=== PATIENT | female | born 1970 | race Caucasian/White ===

== ENCOUNTER 2024-12-22 10:44 | Outpatient (OUT) | payer MEDICARE, SELFPAY ==
--- NOTE | 2024-12-22 10:47 | US_ITS ---
[address] [address] Patient Name: MONIKA RAMON MRN: [id number] date: 1970 Sex: F Assigned Patient Location: US Current Patient Location: US Accession/Order Number: [id number] Exam Date: 12/22/2024 10:48 Report Date: 12/22/2024 12:06 At the request of: MAYNOR CRAVEN Procedure: US pelvis w/ transvaginal EXAMINATION: US pelvis w/ transvaginal HISTORY: Post Menopausal Bleeding COMPARISON: CT abdomen pelvis 10/13/2017 TECHNIQUE: Transabdominal and/or transvaginal sonographic examination was performed as indicated by examination type. FINDINGS: UTERUS: Heterogeneous hypoechoic masslike area within right uterine body, 4.1 x 2.6 x 3.8 cm with large calcification/collection of calcifications, approximately 2.0 cm. Uterus size: 5.8 x 4.8 x 5.8 cm ENDOMETRIUM: Normal homogeneous appearance. Endometrial thickness: 9 mm RIGHT OVARY: Not seen. LEFT OVARY: Not seen. CUL-DE-SAC: Unremarkable. No significant free fluid. BLADDER: Unremarkable. OTHER: None. US/US pelvis w/ transvaginal IMPRESSION: 1. Large uterine mass with coarse calcification; nonspecific but most likely representing a large leiomyoma. Large coarse calcifications were present within the uterus on prior CT study. 2. Neither ovary could be identified. Electronically authenticated by: YAMILETH LONGO Date: 12/22/2024 12:06
== END 2024-12-22 10:45 | disposition home or self-care (01) ==
LOC: US 10:44
PROVIDERS: PCP Nurse Practitioner; Visit Provider Nurse Practitioner
DX: N95.0 Postmenopausal bleeding (principal); R19.00 Intra-abdominal and pelvic swelling, mass and lump, unspecified site
CPT/HCPCS: 76830; 76856

== ENCOUNTER 2024-12-23 13:09 | Outpatient (OUT) | payer MEDICARE, SELFPAY ==
[2024-12-23 14:08] LABS: Lactate Dehydrogenase 183 U/L (81-234)
[2024-12-24 04:07] LABS: HCG Tumor Marker 2 mIU/mL (.)
[2024-12-24 08:13] LABS: AFP, Serum, Tumor Marker 2.5 ng/mL (0.0-9.2); CEA <0.6 ng/mL (0.0-4.7); Cancer Antigen (CA) 125 14.6 U/mL (0.0-38.1)
== END 2024-12-23 13:10 | disposition home or self-care (01) ==
LOC: LAB 13:12
PROVIDERS: PCP Nurse Practitioner; Visit Provider Obstetrics & Gynecology
DX: N83.299 Other ovarian cyst, unspecified side (principal)
CPT/HCPCS: 36415; 82105; 82378; 83615; 84702; 86304

== ENCOUNTER 2024-12-28 09:04 | Outpatient (OUT) | payer MEDICARE, SELFPAY ==
--- NOTE | 2024-12-28 09:07 | ECG_ITS ---
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
--- OUTSIDE RECORDS SUMMARY | 2024-12-28 09:24 | XMS_ITS | CCD ---
Author Organization [facility] Care Team Providers Care 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 Name Role Phone MISC, DOCTOR Primary Care Unavailable NICOLA JOHNSON Admitting Unavailable NICOLA JOHNSON Attending Unavailable NICOLA JOHNSON Consulting Unavailable YAMILETH LONGO Consulting Unavailable TEREZA RAMÍREZ Consulting Unavailable Kelley Gómez Primary Care Physician Erica Mercedes Primary Care Provider Erica Mercedes Primary Care Provider Erica Mercedes Primary Care Provider Ara Vanegas Primary Care Physician Gonsalo CHARLES, Mitzy Unavailable Erica Mercedes Primary Care Provider Jackie Pop V Unavailable Unavailable Guilherme, Ara Cote Attending Unavailable Guilherme, Ara oCte Attending Unavailable Guilherme, Ara Cote Attending Unavailable Orzech, Elo Michel Attending Unavailable Orzech, Elo Michel Attending Unavailable Guilherme, Ara Ctoe Attending Unavailable Guilherme, Ara Cote Admitting Unavailable Guilherme, Ara L Attending Unavailable Guilherme, Ara L Attending Unavailable Guilherme, Ara L Attending Unavailable Guilherme, Ara L Attending Unavailable Guilherme, Ara L Attending Unavailable Guilherme, Ara L Attending Unavailable Guilherme, Ara L Attending Unavailable Guilherme, Ara L Attending Unavailable Guilherme, Ara L Attending Unavailable Guilherme, Ara L Attending Unavailable Guilherme, Ara L Attending Unavailable Guilherme, Ara L Attending Unavailable Guilherme, Ara L Attending Unavailable Guilherme, Ara L Attending Unavailable Guilherme, Ara L Attending Unavailable Guilherme, Ara L Attending Unavailable Guilherme, Ara Cote Attending Unavailable VALENT, MIO N Referring Unavailable ERICA MERCEDES Primary Care Unava ilable ERICA MERCEDES Primary Care Unava ilable VALENT, MIO N Referring Unavailable ERICA MERCEDES Primary Care Unava ilable SUMIT BUSTAMANTEITH Attending Unavailable SUMIT BUSTAMANTEITH Referring Unavailable ERICA MERCEDES Primary Care Unava ilable BUSTAMANTEPATRICK Attending Unavailable ERICA MERCEDES Primary Care Unava ilable BUSTAMANTE, PATRICK Referring Unavailable BUSTAMANTE, PATRICK Attending Unavailable BUSTAMANTE, PATRICK Referring Unavailable BUSTAMANTESUMITPATRICK Attending Unavailable ERICA MERCEDES Primary Care Unava ilable BUSTAMANTE, PATRICK Attending Unavailable BUSTAMANTE, PATRICK Referring Unavailable ERICA MERCEDES Primary Care Unava ilable VALENT, MIO N Attending Unavailable VALENT, MIO N Referring Unavailable ERICA MERCEDES Primary Care Unava ilable Unavailable Primary Care Provider UnavailKELLEY Kaur Attending Unavailable Allergies Allergy Classification Reported Allergen(s) Allergy Type Date of Onset Reaction(s) Facility Opioid Agonists (1 source) Morphine Drug Allergy 6 Hives [facility] (4 sources) Morphine; Translations: [morphine] Drug Allergy 4 [facility] (20 sources) Morphine; Translations: [morphine] Drug Allergy 6 Eruption of skin (disorder), Hives, Rash [facility] (5 sources) Bee/Wasp/Ant venom; Translations: [Bee Stings] Propensity to adverse reactions to substance Swelling (finding) [facility] [place] (3 sources) Honey bee venom Propensity to adverse reactions 5 Swelling [facility] Medications Current Medications Medication Drug Class(es) Dates Sig (Normalized) Sig (Original) 0.5 ML tirzepatide 10 MG/ML Auto-Injector [Mounjaro] (3 sources) Start: 02-25-2024 inject 5 mg by subcutaneous injection every week Mounjaro 5 mg/0.5 mL subcutaneous solution 5 mg, SubCutaneous, qWeek, # 4 EA, Refills(s) 2, Pharmacy: [facility], 178, cm, 02/25/24 11:11:00 EDT, Height/Length Dosing, 109.8, kg, 02/25/24 11:11:00 EDT, Weight Dosing Start Date: 02/25/24 Status: Ordered 0.5 ML tirzepatide 30 MG/ML Auto-Injector [Mounjaro] (4 sources) Start: 06-24-2023 inject 15 mg by subcutaneous injection every week Mounjaro 15 mg/0.5 mL subcutaneous solution 15 mg, SubCutaneous, qWeek, Refills(s) 0 Start Date: 06/24/23 Status: Ordered acetaminophen 650 mg oral tablet (3 sources) Start: 01-14-2024 Tylenol 650 mg, Oral, PRN as needed for pain, Refills(s) 0 Start Date: 01/14/24 Status: Ordered baclofen 20 mg oral tablet (20 sources) gamma-Aminobutyr ic Acid-ergic Agonist Start: 12-15-2024 End: 06-13-2025 take 1 tablet by mouth three times daily baclofen 20 mg tablet Take 1 tablet by mouth three times a day. 90 tablet 5 12/15/2024 06/13/2025 Active Start: 01-21-2024 End: 12-15-2024 take 1 tablet by mouth three times daily baclofen 10 mg tablet Take 1 tablet by mouth three times a day. 90 tablet 5 01/21/2024 12/15/2024 Discontinued (Changing Therapy/Dosage Form) Start: 10-27-2023 End: 10-26-2024 take 1 tablet by mouth twice daily baclofen 10 mg tablet Take 1 tablet by mouth two times a day. 180 tablet 3 10/27/2023 01/21/2024 Discontinued Start: 10-26-2020 End: 12-20-2022 take 1 tablet by mouth twice daily baclofen (LIORESAL) 10 mg tablet Take 1 tablet by mouth twice daily. 180 tablet 3 10/26/2020 12/20/2022 Discontinued Start: 09-13-2020 baclofen 10 mg , Oral, BID, Oral, 0 Refill(s), Refills(s) 0 Start Date: 09/13/20 Status: Ordered Start: 09-13-2020 End: 10-27-2023 baclofen 5 mg tablet Take 1 tablet by mouth as needed. 0 09/03/2023 10/27/2023 Discontinued (Other) Comment on above: Take 1 tablet by rahel th twice daily. Take 1 tablet by rahel th as needed. Take 5 mg by mouth. Take 1 tablet by rahel th two times a day. Take 1 tablet by rahel th three times a day. benzonatate 200 mg oral capsule (1 source) Non-narcotic Antitussive Start: 4 End: 4 take 1 capsule by mouth three times daily benzonatate 200 mg oral capsule 200 mg = 1 cap(s), Oral, TID, X 7 day(s), # 21 cap(s), Refills(s) 0, Pharmacy: [facility]/pharmacy #[id number], 178, cm, 03/17/24 12:53:00 EDT, Height/Length Dosing, 106.8, kg, 03/17/24 12:53:00 EDT, Weight Dosing Start Date: 03/17/24 Stop Date: 03/24/24 Status: Ordered Capmist DM 15 mg-400 mg-60 mg oral tablet (3 sources) Start: 4 Capmist DM 15 mg-400 mg-60 mg oral tablet 1 tab(s), Oral, q4hr, 30 tab(s), Refill(s) 0, not to exceed 4 doses/day, [facility]/pharmacy #[id number], 178, cm, 03/17/24 12:53:00 EDT, Height/Length Dosing, 106.8, kg, 03/17/24 12:53:00 EDT, Weight Dosing Start Date: 03/17/24 Status: Ordered cephalexin 500 mg oral capsule (8 sources) Cephalosporin Antibacterial Start: 2 take 1 capsule by mouth twice daily Keflex 500 mg Cap 500 mg = 1 cap(s), Oral, BID, Start the day prior to procedure, # 14 cap(s), Refills(s) 0, Pharmacy: [facility]/pharmacy #[id number], 177, cm, 04/17/22 14:39:00 EDT, Height/Length Dosing, 77, kg, 04/17/22 14:39:00 EDT, Weight Dosing Start Date: 09/19/22 Status: Ordered Start: 04-17-2022 End: 04-27-2022 take 1 capsule by mouth every twelve hours Keflex 500 mg Cap 500 mg = 1 cap(s), Oral, q12hr, X 10 day(s), # 20 cap(s), Refills(s) 0, Pharmacy: [facility]/pharmacy #[id number], 177, cm, 04/17/22 14:39:00 EDT, Height/Length Dosing, 77, kg, 04/17/22 14:39:00 EDT, Weight Dosing Start Date: 04/17/22 Stop Date: 04/27/22 Status: Ordered Start: 02-11-2022 take 1 capsule by mo [facility] twice daily Keflex 500 mg Cap 500 mg = 1 cap(s), Oral, BID, Start the day prior to procedure, # 14 cap(s), Refills(s) 0, [id number], cm, 02/11/22 13:14:00 EDT, Height/Length Dosing, 76, kg, 01/15/22 11:55:00 EST, Weight Dosing Start Date: 02/11/22 Status: Ordered Start: 07-28-2013 Keflex Refills (s) 0 Start Date: 07/28/13 Status: Ordered estradiol 1 mg oral tablet (20 sources) Estrogen Start: 10-25-2024 Estrace 1 MG t ablet 10/25/2024 Active Start: 04-04-2021 End: 12-22-2024 estradiol (Estrace) 0.5 MG t ablet Take 0.5 mg by mouth. 12/13/2022 12/22/2024 Discontinued (Therapy completed) Comment on above: Take 1 tablet by [facility] once daily. Excedrin Extra Strength (3 sources) Start: 4 take 2 tablets by mouth every six hours Excedrin Extra Strength 2 tab(s), Oral, q6hr Headache, Refill(s) 0 Start Date: 01/14/24 Status: Ordered mupirocin 0.02 mg/mg topical ointment (7 sources) RNA Synthetase Inhibitor Antibacterial Start: 4 Bactroban 2% Ointment 1 walter, Topical, TID, 30 gram, Refill(s) 0 Start Date: 04/26/14 Status: Ordered Start: 04-26-2014 Bactroban 2% O intment 1 walter, Topical, TID, 30 gram, Refill(s) 0 Start Date: 04/26/14 Status: Ordered 24 hr oxybutynin chloride 10 mg extended release oral tablet (11 sources) Cholinergic Muscarinic Antagonist Start: 02-04-2024 take 1 tablet by mouth once daily oxybutynin 10 mg ER Tab 10 mg = 1 tab(s), Oral, Daily, # 30 tab(s), Refills(s) 3, Pharmacy: [facility], 178, cm, 01/14/24 10:21:00 EST, Height/Length Dosing, 109, kg, 01/14/24 10:21:00 EST, Weight Dosing Start Date: 02/04/24 Status: Ordered Start: 02-18-2017 End: 12-20-2022 take 1 tablet by mouth three times daily oxybutynin (DITROPAN) 5 mg tablet Take 1 tablet by mouth three times daily. 90 tablet 5 02/18/2017 12/20/2022 Discontinued Comment on above: Take 1 tablet by rahel th three times daily. Paxil (6 sources) Serotonin Reuptake Inhibitor Start: 07-28-20 Paxil Refills(s) 0 Start Date: 07/28/13 Status: Ordered phentermine hydrochloride 37.5 mg oral tablet (3 sources) Sympathomimetic Amine Anorectic Start: 07-29-20 take 1 tablet by mouth once daily phentermine 37.5 mg Tab 37.5 mg = 1 tab(s), Oral, Daily, # 30 tab(s), Refills(s) 0, Pharmacy: [facility]/pharmacy #[id number], 180, cm, 07/29/24 8:33:00 EDT, Height/Length Dosing, 106.2, kg, 07/29/24 8:33:00 EDT, Weight Dosing Start Date: 07/29/24 Status: Ordered Start: 05-25-2024 take 1 tablet by rahel th once daily phentermine 37.5 mg Tab 37.5 mg = 1 tab(s), Oral, Daily, # 30 tab(s), Refills(s) 0, Pharmacy: [facility] #[id number], 180, cm, 05/25/24 10:36:00 EDT, Height/Length Dosing, 108, kg, 05/25/24 10:36:00 EDT, Weight Dosing Start Date: 05/25/24 Status: Ordered Start: 08-12-2023 take 1 tablet by rahel once daily phentermine 37.5 mg Tab 37.5 mg = 1 tab(s), Oral, Daily, # 30 tab(s), Refills(s) 0, Pharmacy: [facility] #[id number], 177, cm, 08/12/23 11:53:00 EDT, Height/Length Dosing, 109.9, kg, 08/12/23 11:53:00 EDT, Weight Dosing Start Date: 08/12/23 Status: Ordered sulfamethoxazole 800 mg / trimethoprim 160 mg oral tablet (1 source) Dihydrofolate Reductase Inhibitor Antibacterial, Sulfonamide Antimicrobial Start: 07-29-2024 End: 08-05-2024 sulfamethoxazole-trimethopri m 800 mg-160 mg Tab 1 tab(s), Oral, BID for 7 day(s), 14 tab(s), Refill(s) 0, [facility]/pharmacy #[id number], 180, cm, 07/29/24 8:33:00 EDT, Height/Length Dosing, 106.2, kg, 07/29/24 8:33:00 EDT, Weight Dosing Start Date: 07/29/24 Stop Date: 08/05/24 Status: Ordered tizanidine (6 sources) Central alpha-2 Adrenergic Agonist Start: 05-17-2014 tizanidine Refills(s) 0 Star t Date: 05/17/14 Status: Ordered valACYclovir 1000 mg oral tablet (3 sources) Herpesvirus Nucleoside Analog DNA Polymerase Inhibitor, Herpes Simplex Virus Nucleoside Analog DNA Polymerase Inhibitor, Herpes Zoster Virus Nucleoside Analog DNA Polymerase Inhibitor Start: 03-19-2024 take 1 tablet by mouth twice daily Valtrex 1 g Tab 1 gm = 1 tab(s), Oral, BID, # 20 tab(s), Refills(s) 0, Pharmacy: [facility]/pharmacy #[id number], 178, cm, 03/17/24 12:53:00 EDT, Height/Length Dosing, 106.8, kg, 03/17/24 12:53:00 EDT, Weight Dosing Start Date: 03/19/24 Status: Ordered vibegron 75 MG Oral Tablet [Gemtesa] (5 sources) Start: 06-01-2024 take 1 tablet by mouth once daily Gemtesa 75 mg oral tablet 75 mg = 1 tab(s), Oral, Daily, # 90 tab(s), Refills(s) 3, [id number], [facility], 06/01/24 14:27:00 EDT, Height/Length Dosing, 103, kg, 06/01/24 14:27:00 EDT, Weight Dosing Start Date: 06/01/24 Status: Ordered Start: 03-23-2024 take 1 tablet by rahel once daily Gemtesa 75 mg oral tablet 75 mg = 1 tab(s), Oral, Daily, # 30 tab(s), Refills(s) 6, Pharmacy: [facility]/pharmacy #[id number], 180, cm, 03/23/24 14:37:00 EDT, Height/Length Dosing, 103.6, kg, 03/23/24 14:37:00 EDT, Weight Dosing Start Date: 03/23/24 Status: Ordered Vitamin B-12 1000 mcg oral tablet (8 sources) Start: 07-24-2023 take 1 tablet by mouth once daily Vitamin B-12 1000 mcg oral tablet 1,000 mcg = 1 tab(s), Oral, Daily, # 30 tab(s), Refills(s) 5, [id number] 177, cm, 07/22/23 13:10:00 EDT, Height/Length Dosing, 102, kg, 07/22/23 13:10:00 EDT, Weight Dosing Start Date: 07/24/23 Status: Ordered Start: 06-24-2023 take 1 tablet by [facility] once daily Vitamin B-12 1000 mcg oral tablet 1,000 mcg = 1 tab(s), Oral, Daily, # 30 tab(s), Refills(s) 0, Pharmacy: [facility]/pharmacy #[id number], 176.8, cm, 06/24/23 11:25:00 EDT, Height/Length Dosing, 106.5, kg, 06/24/23 11:25:00 EDT, Weight Dosing Start Date: 06/24/23 Status: Ordered Completed/Discontinued Medications Medication Drug Class(es) Dates Sig (Normalized) Sig (Original) acetaminophen 325 mg / HYDROcodone bitartrate 5 mg oral tablet (3 sources) Opioid Agonist End: 12-22-2024 HYDROcodone-aceta minophen ([place]) 5-325 MG tablet every 6 (six) hours. 12/22/2024 Discontinued (Therapy completed) onabotulinumtoxina 100 unt injection (20 sources) Acetylcholine Release Inhibitor Start: 12-15-2024 End: 12-15-2024 onabotulinum toxin type A 400 Units injection (BOTOX) Start: 12-15-2024 End: 12-15-2024 inject 2 mL by intramuscular injection once 400 Units, INTRAMUSCULAR, ONCE (UP TO 30 DAYS AMB), 1 dose, On Fri12/15/24 at 1330, This record documents the total dose provided to patient. See progress note for specific locations and amounts administered. Dilution: 100 units botox mixed with 2 ml saline REFRIGERATE - Pharmaceutical Waste: Lab Pack - Start: 2024 End: 2024 onabotulinum toxin type A 40 0 Units injection (BOTOX) Start: 2024 End: 2024 inject 2 mL by intramuscular injection once 400 Units, INTRAMUSCULAR, ONCE (UP TO 30 DAYS AMB), 1 dose, On Fri09/08/24 at 1200, This record documents the total dose provided to patient. See progress note for specific locations and amounts administered. Dilution: 100 units botox mixed with 2 ml saline REFRIGERATE - Pharmaceutical Waste: Lab Pack - Start: 05-26-2024 End: 05-26-2024 onabotulinum toxin type A 30 0 Units injection (BOTOX) Start: 09-03-2023 onabotulinum t oxin type A (BOTOX) 100 unit solr Injected every 3 months for spasticity as directed. 09/03/2023 Active Start: 09-02-2023 Botox 100 unit s injection 0 Refill(s), Injected every 3 months for spasticity as directed., Refills(s) 0 Start Date: 09/02/23 Status: Ordered Comment on above: Injected every 3 fri ths for spasticity as directed. citalopram 20 mg oral tablet (15 sources) Serotonin Reuptake Inhibitor Start: 09-21-20 End: 12-22-19 take 1 tablet by mouth once daily citalopram (CELEXA) 20 mg tablet Indications: Mood disturbance Take 1 tablet by mouth once daily. 90 tablet 3 09/21/2019 09/03/2023 Discontinued (Discontinued by another Health Care Provider) Comment on above: Take 1 tablet by rahel once daily. cyclobenzaprine hydrochloride 10 mg oral tablet (15 sources) Muscle Relaxant Start: 09-21-20 End: 09-03-20 take 1 tablet by mouth every eight hours as needed cyclobenzaprine (FLEXERIL) 10 mg tablet Take 1 tablet by mouth three times daily as needed for Muscle Spasm. 90 tablet 5 09/21/2019 09/03/2023 Discontinued (Discontinued by another Health Care Provider) End: 12-22-2024 cyclobenzaprine (Flexeril) 1 0 MG tablet 1 (one) time each day at the same time. 12/22/2024 Discontinued (Therapy completed) Comment on above: Take 1 tablet by rahel three times daily as needed for Muscle Spasm. iv contrast (will be provided with radiology test) (2 sources) Start: 4 End: inject 1 dose intravenously once iv contrast (will be provided with radiology test) Indications: Brain tumor (HCC) MRI Brain Inject, intravenously, once for 1 dose.No IV access, insert saline lock prior to beginning of sedation, infusion, injection of imaging exam.Discontinue saline lock post exam. If Pt. has a central line or IVAD, may access for administration according to line specific nursing protocol.Once exam is complete flush line and de-access according to line specific nursing protocol in the MR contrast administration guidelines link 1 Each 0 04/16/2024 04/17/2024 Start: 12-20-2022 End: 12-21-2022 inject 1 dose intravenously once iv contrast (will be provided with radiology test) Indications: Brain tumor (HCC) , AL amyloidosis (HCC) MRI Brain Inject, intravenously, once for 1 dose.No IV access, insert saline lock prior to beginning of sedation, infusion, injection of imaging exam.Discontinue saline lock post exam. If Pt. has a central line or IVAD, may access for administration according to line specific nursing protocol.Once exam is complete flush line and de-access according to line specific nursing protocol in the MR contrast administration guidelines link 1 Each 0 12/20/2022 12/21/2022 Active Comment on above: MRI Brain Inject, in travenously, once for 1 dose.No IV access, insert saline lock prior to beginning of sedation, infusion, injection of imaging exam.Discontinue saline lock post exam. If Pt. has a central line or IVAD, may access for administration according to line specific nursing protocol.Once exam is complete flush line and de-access according to line specific nursing protocol in the MR contrast administration guidelines link LORazepam 1 mg oral tablet (20 sources) Benzodiazepine Start: 04-16-2024 End: 04-16-2025 LORazepam (ATIVAN) 1 mg tablet Indications: Brain tumor (HCC) Take 1-2 tablets prior to MRI procedure. 2 tablet 04/16/2024 12/15/2024 Discontinued (Discontinued by another Health Care Provider) Start: 03-18-2024 End: 03-18-2025 LORazepam (ATIVAN) 1 mg tabl et Indications: Brain tumor (HCC) Take 1-2 tablets prior to MRI procedure. Do not start before March 18, 2024. 2 tablet 0 03/18/2024 04/16/2024 Discontinued Start: 09-12-2021 End: 09-10-2023 LORazepam (ATIVAN) 1 mg tabl et Indications: Brain tumor (HCC) Take 1-2 tablets prior to MRI procedure. 2 tablet 0 09/12/2022 09/03/2023 Discontinued (Discontinued by another Health Care Provider) Comment on above: Take 1-2 tablets rae or to MRI procedure. Mounjaro 10 MG/0.5ML solution pen-injector (3 sources) Start: 12-25-2022 End: 12-22-2024 Mounjaro 10 MG/0.5ML solution pen-injector INJECT 1 SYRINGE SUBCUTANEOUSLY ONCE A WEEK 12/25/2022 12/22/2024 Discontinued (Therapy completed) Start: 12-25-2022 Mounjaro 10 MG /0.5ML solution pen-injector INJECT 1 SYRINGE SUBCUTANEOUSLY ONCE A WEEK 12/25/2022 Active Mounjaro 15 MG/0.5ML solutio n pen-injector (3 sources) Start: 06-24-2023 End: 12-22-2024 Mounjaro 15 MG/0.5ML solutio n pen-injector Inject 15 mg under the skin. 06/24/2023 12/22/2024 Discontinued (Therapy completed) Start: 06-24-2023 Mounjaro 15 MG /0.5ML solution pen-injector Inject 15 mg under the skin. 06/24/2023 Active naproxen 500 mg oral tablet (3 sources) Nonsteroidal Anti-inflammatory Drug End: 12-22-2024 naproxen (Naprosyn) 500 MG tablet every 12 (twelve) hours. 12/22/2024 Discontinued (Therapy completed) SEMAGLUTIDE SUBCUTANEOUS (8 sources) End: 05-26-2024 inject 5 mg by subcutaneous injection every week SEMAGLUTIDE SUBCUTANEOUS Inject 5 mg subcutaneously one time a week. 0 05/26/2024 Discontinued (Discontinued by another Health Care Provider) inject 5 mg by subcu taneous injection every week SEMAGLUTIDE SUBCUTANEOUS Inject 5 mg subcutaneously one time a week. 0 Active vitamin b12 1 mg oral tablet (3 sources) Vitamin B12 Start: 06-24-2023 End: 12-22-2024 take 1 tablet by mouth in the morning [facility] Vitamin B12 1000 MCG tablet Take 1,000 mcg by mouth in the morning. 06/24/2023 12/22/2024 Discontinued (Therapy completed) Problems Active Problems Problem Classification Problem Date Documented Date Episodic/Chronic Bacterial infection; unspecified site (13 sources) Staphylococcal infectious disease 06-23-2015 Episodic Benign neoplasm of uterus (15 sources) Uterine leiomyoma 02-04-2014 Episodic Chronic obstructive pulmonary disease and bronchiectasis (3 sources) Bronchitis 11-25-2023 Episodic Diabetes or abnormal glucose tolerance complicating ; childbirth; or the puerperium (20 sources) Gestational diabetes mellitus; Translations: [Gestational diabetes mellitus, class A>2< ] Resolved: 09-16-2011 02-04-2014 Episodic External cause codes: Fall (1 source) Fall from motorized mobility scooter, initial encounter; Translations: [FALL MOTORIZD MOBILITY SCOOTER INIT] Onset: 12-20-2019 Fracture of upper limb (1 source) Displaced fracture of neck of second metacarpal bone, left hand, initial encounter for closed fracture; Translations: [DSPL FX NECK 2ND MC BN LH INIT SALVADOR] Onset: 12-20-2019 Episodic Genitourinary symptoms and ill-defined conditions (20 sources) Genuine stress incontinence; Translations: [Incontinence without sensory awareness] Onset: 07-22-2023 01-15-2022 Chronic Genitourinary symptoms and ill-defined conditions (20 sources) Microscopic hematuria; Translations: [Nocturia] Onset: 03-05-2022 01-15-2022 Episodic Menopausal disorders (2 sources) Postmenopausal bleeding; Translations: [Postmenopausal bleeding] 12-22-2024 Chronic Neoplasms of unspecified nature or uncertain behavior (20 sources) Intracranial tumor; Translations: [Neoplasm of brain] Onset: 04-16-2024 02-04-2014 Chronic Other complications of (15 sources) Advanced maternal age 09-05-2011 Episodic Other complications of (15 sources) Placental insufficiency 02-04-2014 Episodic Comment on above: GRADE 2 PLACENTA Other connective tissue disease (3 sources) Pain in left hand; Translations: [PAIN IN LEFT HAND] Onset: 12-16-2019 Episodic Other diseases of bladder and urethra (15 sources) Overactive bladder 09-13-2020 Chronic Other diseases of bladder and urethra (7 sources) Detrusor overactivity; Translations: [Overactive bladder] Onset: 03-05-2022 Chronic Other female genital disorders (2 sources) Mass of uterus; Translations: [Other specified noninflammatory disorders of uterus] 12-22-2024 Episodic Other lower respiratory disease (3 sources) Cough 03-17-2024 Episodic Other nervous system disorders (20 sources) Other specified disorders of brain; Translations: [Other conditions of brain] Onset: 11-09-2012 11-27-2012 Chronic Other nervous system disorders (3 sources) H/O: brain disorder 10-02-2023 Episodic Comment on above: Added per Earl Vanegas query response, added per outpatient [facility] policy. Other nutritional; endocrine; and metabolic disorders (1 source) Obesity, unspecified; Translations: [OBESITY UNSPECIFIED] Onset: 12-20-2019 Chronic Other nutritional; endocrine; and metabolic disorders (1 source) Body mass index (BMI) 36.0-36.9, adult; Translations: [BODY MASS INDEX BMI 36.0-36.9 ADULT] Onset: 12-20-2019 Chronic Other nutritional; endocrine; and metabolic disorders (16 sources) Body mass index 30+ - obesity 09-13-2020 Chronic Other nutritional; endocrine; and metabolic disorders (20 sources) Amyloidosis; Translations: [Amyloidosis, unspecified] Onset: 12-14-2012 12-14-2012 Chronic Other nutritional; endocrine; and metabolic disorders (5 sources) AL amyloidosis; 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 Other nutritional; endocrine; and metabolic disorders (4 sources) Calorie overload 08-12-2023 Chronic Other nutritional; endocrine; and metabolic disorders (3 sources) Insulin resistance 12-15-2023 Chronic Other nutritional; endocrine; and metabolic disorders (1 source) Light chain (AL) amyloidosis; 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)] Onset: 04-16-2024 Chronic Other upper respiratory disease (3 sources) Congestion of nasal sinus 11-25-2023 Episodic Ovarian cyst (2 sources) Complex ovarian cyst; Translations: [Other ovarian cyst, unspecified side] 12-22-2024 Episodic Paralysis (6 sources) Spastic hemiplegia of left nondominant side; Translations: [Spastic hemiplegia affecting left nondominant side] Onset: 02-18-2024 09-03-2023 Chronic Polyhydramnios and other problems of amniotic cavity (15 sources) Oligohydramnios 02-04-2014 Episodic Unclassified (8 sources) Cancer cervix screening status 06-24-2023 Unclassified (20 sources) Patient encounter status 06-24-2023 Unclassified (1 source) APPOINTMENT CANCELLED 07-08-2023 Past or Other Problems Problem Classification Problem Date Documented Date Episodic/Chronic Disorders of teeth and jaw (20 sources) Infection of tooth; Translations: [Periapical abscess without sinus] Onset: 08-12-2016 08-12-2016 Episodic Malaise and fatigue (20 sources) Lack of energy; Translations: [Other fatigue] Onset: 06-22-2014 06-22-2014 Episodic Mycoses (20 sources) Candidiasis of mouth;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 type A (02/17/2024), 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 Medications baclofen, 10 mg, Oral, BID Botox 100 units injection Capmist DM 15 mg-400 mg-60 mg oral tablet, 1 tab(s), Oral, q4hr estradiol 1 mg Tab, 1 mg= 1 tab(s), Oral, Daily, 1 refills Excedrin Extra Strength, 2 tab(s), Oral, q6hr, PRN Gemtesa 75 mg oral tablet, 75 mg= 1 tab(s), Oral, Daily, 6 refills Gemtesa 75 mg oral tablet, 75 mg= 1 tab(s), Oral, Daily, 3 refills Mounjaro 5 mg/0.5 mL subcutaneous solution, 5 mg, SubCutaneous, qWeek, 2 refills phentermine 37.5 mg Tab, 37.5 mg= 1 tab(s), Oral, Daily topiramate 25 mg Tab, 25 mg= 1 tab(s), Oral, Daily, 1 refills Tylenol, 650 mg, Oral, PRN Valtrex 1 g Tab, 1 gm= 1 tab(s), Oral, BID Vitamin B-12 1000 mcg oral tablet, 1000 mcg= 1 tab(s), Oral, Daily, 5 refills Allergies Bee Stings (Swelling) morphine (Rash) Social History Alco (more content not included)... Normal [facility] Comment on above: Result Comment: Elec tronically Signed By: Ara Michelle\.br\Date and Time Signed: 09/14/24 10:37 EDT Darling 2024 ALESHA Office Visit (REHAV) MONIKA HASKINS ([id number]) 1970 F Date Time Provider Department 09/08/24 11:15 AM PATRICK BUSTAMANTE During your visit today, we recorded the following information about you: Pulse Blood pressure 103/minute 130/83 Patrick Bustamante MD 09/07/2024 10:17 AM Signed You have received botulinum toxin injections today. The skin around the site of injections should be monitored for a couple of days. If redness or swelling occur, the skin should be examined by a health healthcare corporate account director to rule out infection. If you experience pain in the muscles injected over the next few days, you can take Tylenol to control the pain (unless contra-indicated). Please call our office at [phone] with any questions or concerns. MD Dianna Sun Keith, MD 2024 12:07 PM Signed BOTULINUM TOXIN THERAPY - Informed consent was signed on 11/12/2023. Patient accompanied by: No one. Current complaints / history since last visit: most recent botulinum toxin injections on 05/26/2024. She reports that botox injections were effective with less stiffness and discomfort with improved range of motion. She was able to open her hand easier. She denies spasms. Oral antispasticity medications: Baclofen 10 mg three times daily Illnesses / hospitalizations since the last visit: No Other updates: She has a new grandson, Star Yates. She has a new jeep. Anticoagulation: No Home stretching/exercise routine: She performs stretching exercises daily PT/OT: No BT therapy effective? Yes - stiffness, pain/discomfort, other and active function (range of motion) Duration of benefit: 8 weeks Side effects: No Spasm scale: 0=No spasm Pain related to the purpose of the visit: Yes LOCATION: Left arm PAIN SCALE: 2 on a scale of 0-10 PAIN CHARACTER: Numb and aching DURATION: (How long have you had the pain?) Several years FREQUENCY: (How often does the pain occur?) Occurs constantly Patient Entered Data PROMIS No data to display Spasticity NRS 05/26/2024 02/18/2024 11/12/2023 -- Spasm Scale 2=Infrequent full spasms occuring less than once per hour 2=Infrequent full spasms occuring less than once per hour 2=Infrequent full spasms occuring less than once per hour Spasm Scale - Trendable Number 2 2 2 Spasm Scale No data to display Global Impression of Change No data to display Nutritional status: appetite is good, weight is stable, swallowing with no problems Driving issues: No issues per patient Safety concerns regarding living situations and safety at home: No At risk for falling: Yes, frequency at least 2 falls over the last 3 months, no injuries per patient Examination: Strength Right Left Shoulder abduction 5 2+ Elbow flexion 5 1+ Elbow extension 5 2 Wrist extension 5 0 Hip flexion 5 3+ Knee flexion 5 2 Knee extension 5 4 Plantarflexion 5 Dorsiflexion 5 Strength: She is wearing left AFO. Spasticity Right Left Shoulder 0 3 Elbow flexors 0 2 Elbow extensors 0 3 Wrist flexors 0 0 Wrist extensors 0 2 Finger flexors 0 3 Finger extensors 0 0 Hip adductors 0 1 Knee extensors 0. 1 Knee flexors 0 0 Plantarflexors 0 Modified Francine Scale 0 - No increase in tone 1 - Slight increase in tone (catch and release at end of ROM) 1+ - Slight increase in tone, manifested by a catch, followed by minimal resistance throughout remainder (less than half of ROM) 2 - Marked increase in tone through most of the ROM, but affected part(s) easily moved 3 - Considerable increase in tone; passive movement difficult 4 - Affected part(s) rigid in flexion or extension She is wearing left AFO Spasms observed: RUE: no right upper extremity spasms LUE: no left upper extremity spasms RLE: no right lower extremity spasms LLE: no left lower extremity spasms [facility] MS TIMED 25 FOOT WALK: Not tested. Assistance required: crutches (She uses a forearm crutch) Ambulation Index Score: 4 - Unilateral support and 25 ft <20 sec OR no support and 25 ft > 20 sec UNIVERSAL PROTOCOL / SAFETY CHECKLIST Procedure to be Performed: Botulinum Toxin Injections Sign In: A Moment of CARE was completed. Personnel directly involved with the procedure wore the appropriate PPE (Personal Protective Equipment). Special equipment: EMG Patient/Surrogate Stated/Verified: PATIENT VERIFIED(optional for EMERGENT procedures): Patient name, Date of , Relevant allergies, and The intended procedure Time Out Communication: Intended patient and procedure match the source documents. Consent documented and matches the intended procedure. Correct side/site marked and visible. Medications required for procedure verified. Sign Out: SIGN OUT (optional for EMERGENT procedures): LYN Bustamante MD The risks, benefits and alternatives of the procedure were explained. Written Consent Obtained: yes - 10/25 (more content not included)... Normal [facility] C Urineon 07-31-2024 Bacteria identified Cx Nom (U) Microbiology PROCEDURE: Urine Culture [R1] SOURCE: U CleanCatch BODY SITE: COLLECTED DATE/TIME: 07/29/2024 08:54 EDT RECEIVED DATE/TIME: 07/29/2024 18:41 EDT START DATE/TIME: 07/29/2024 18:41 EDT FREE TEXT SOURCE: Ara Michelle, Ara Cote FINAL REPORTS Final Report [] Verified Date/Time: 07/31/2024 09:39 EDT 75,000 cfu/ml Klebsiella pneumoniae 10,000 cfu/ml Mixed skin contaminants SUSCEPTIBILITY RESULTS LEGEND: S=Susceptible, N/R=Not Reported, Blank=Data not available, or drug not advisable or tested, I=Intermediate, ESBL=Extended spectrum beta-lactamase, R=Resistant, TFG=Thymidine-depende nt strain, TEJA=Beta-lactamase positive, JAYDE=mcg/m;(mg/L), S*=Predicted susceptible interp, R*=Predicted resistant interp Klepne Antibiotic JAYDE Dilutn JAYDE Interp Ampicillin >16 R Ampicillin/ <=8/4 S Sulbactam Aztreonam <=4 S Cefazolin <=2 S Cefepime <=2 S Ceftazidime <=1 S Ceftazidime/ <=8 S Avibactam Ceftriaxone <=1 S Cefuroxime <=4 S Ciprofloxacin <=0.25 S Ertapenem <=0.5 S Gentamicin <=2 S Levofloxacin <=0.5 S Meropenem <=1 S Nitrofurantoin <=32 S Piperacillin/ <=8 S Tazobactam Tetracycline <=4 S Tobramycin <=2 S Trimethoprim/ <=2/38 S Sulfa Performing Locations R1: This test was performed at: [facility], [address] [place] [address], [phone] , [place], Normal [facility] Comment on above: Performed By: #### [id number] #### [facility] [address] [place] [address] Family Medicine Office/Clini c Noteon 07-29-2024 Family Medicine Office/Clinic Note Family Medicine Office/Clinic Note HPI Staff Monika is a 53 year old female presenting with weight Weight management Adipex 37.5 mg Sleeping well:Yes, 6-8 hours Chest pain:No Tremors:No Headaches:No Heart fluttering:No Blurred Vision:No Starting Weight: 241.78 lbs Weight last visit: 237.6 lbs Weight this visit: 234.13 lbs UTI sx also Onset: 2 days ago Symptoms: dysuria, pain in abdomen and not emptying all the way OTC used: no Last UTI: last year Hx of kidney stones: no UA in office documented in chart History of Present Illness pt presents today for weight management Review of Systems PHQ Score Initial Depression Screen Score: 0 SCORE Physical Exam Vitals & Measurements T: 36.5 ?C(Oral) HR: 78(Peripheral) RR: 18 BP: 132/84 SpO2: 98% HT: 71 in HT: 180.0 cm WT: 106.2 kg WT: 233.64 lb BMI: 32.78 General: alert, no acute distress ENMT: oral mucosa moist, no pharyngeal erythema or exudate Cardiovascular: regular rate and rhythm, normal peripheral perfusion Respiratory: Lungs CTA, respirations non labored Extremities: no deformity, no trauma Neurological: oriented x 4, LOC appropriate for age, CN II-XII intact, motor strength equal & normal bilaterally, speech normal Assessment/Plan 1. Encounter for weight management (Z76.89: Persons encountering health services in other specified circumstances) Down 4 pound since last visit. will refill adipex. RTC 1 month Ordered: phentermine, 37.5 mg = 1 tab(s), Oral, Daily, # 30 tab(s), Refills(s) 0, Pharmacy: [facility]/pharmacy #[id number], 180, cm, 06/01/24 14:27:00 EDT, Height/Length Dosing, 103, kg, 06/01/24 14:27:00 EDT, Weight Dosing phentermine, 37.5 mg = 1 tab(s), Oral, Daily, # 30 tab(s), Refills(s) 0, Pharmacy: [facility]/pharmacy #[id number], 180, cm, 07/29/24 8:33:00 EDT, Height/Length Dosing, 106.2, kg, 07/29/24 8:33:00 EDT, Weight Dosing Urine Culture Urnls Dip Stick Non-Auto w/o Micrscpy POC 38519 2. Dysuria (R30.0: Dysuria) u/a+ will send for culture. bactrim sent Ordered: Urine Culture 3. Non-smoker (Z78.9: Other specified health status) continue not smoking Ordered: Urine Culture Urnls Dip Stick Non-Auto w/o Micrscpy POC 96803 4. BMI 32.0-32.9,adult (Z68.32: Body mass index [BMI] 32.0-32.9, adult) BMI eduction Ordered: Urine Culture Urnls Dip Stick Non-Auto w/o Micrscpy POC 47546 5. Class 1 obesity due to excess calories in adult (E66.09: Other obesity due to excess calories) see above Ordered: Urine Culture Urnls Dip Stick Non-Auto w/o Micrscpy POC 62194 Orders: sulfamethoxazole-trim ethoprim, 1 tab(s), Oral, BID for 7 day(s), 14 tab(s), Refill(s) 0, [id number], 180, cm, 07/29/24 8:33:00 EDT, Height/Length Dosing, 106.2, kg, 07/29/24 8:33:00 EDT, Weight Dosing Follow-up No qualifying data available Problem List/Past Medical History Ongoing Adult BMI 33.0-33.9 kg/sq m Advanced maternal age patient Breast cancer screening Bronchitis Cervical cancer screening Congestion of nasal sinus Cough Dysuria Encounter for weight management Enuresis Excessive dietary caloric intake Fibroids History of brain tumor History of gestational diabetes Insulin resistance Microhematuria Oligohydramnios Overactive bladder Placental insufficiency Postinfective urethral stricture in female Well woman exam Historical Biopsy of brain tissue tumor Brain tumor Cholecystectomy CS - section Gestational diabetes Gestational diabetes mellitus, class A>2< Incontinence without sensory awareness Nocturia Nocturnal enuresis Other microscopic hematuria Stress incontinence Urge incontinence Urgency of urination Procedure/Surgical History Botulinum toxin type A (02/17/2024), 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 Medications baclofen, 10 mg, Oral, BID Botox 100 units injection Capmist DM 15 mg-400 mg-60 mg oral tablet, 1 tab(s), Oral, q4hr estradiol 0.5 mg Tab, 0.5 mg= 1 tab(s), Oral, Daily Excedrin Extra Strength, 2 tab(s), Oral, q6hr, PRN Gemtesa 75 mg oral tablet, 75 mg= 1 tab(s), Oral, Daily, 6 refills Gemtesa 75 mg oral tablet, 75 mg= 1 tab(s), Oral, Daily, 3 refills Mounjaro 5 mg/0.5 mL subcutaneous solution, 5 mg, SubCutaneous, qWeek, 2 refills phentermine 37.5 mg Tab, 37.5 mg= 1 tab(s), Oral, Daily sulfamethoxazole-trim ethoprim 800 mg-160 mg Tab, 1 tab(s), Oral, BID Tylenol, 650 mg, Oral, PRN Valtrex 1 g Tab, 1 gm= 1 tab(s), Oral, BID Vitamin B-12 1000 mcg oral tablet, 1000 mcg= 1 tab(s), Oral, Daily, 5 refills Allergies Bee Stings (Swelling) morphine (Rash) S (more content not included)... Normal [facility] Comment on above: Result Comment: Elec tronically Signed By: Ara Michelle\.mark\Date and Time Signed: 07/29/24 10:20 EDT Reminderson 07-23-2024 Reminders Reminders From: Yaz Childress To: BRODY - Recalls Roopa; Sent: 03/24/2024 09:11:40 EDT Show up: 06/24/2024 09:11:00 EDT Subject: Botox Due Date/Time: 07/19/2024 09:11:00 EDT Reminder/Recall Pt needs Botox Jul /Aug Patient seen in May 2024, will wait on botox. Currently getting for her arm. New med started for bladder.LG Normal [facility] Reminderson 06-01-2024 Reminders Reminders From: Rosa Zimmer To: EU - Administrative; Sent: 06/01/2024 14:42:40 EDT Show up: 03/02/2025 14:42:00 EDT Subject: Appointment call back Due Date/Time: 06/01/2025 14:42:00 EDT Reminder/Recall Patient is a one year follow up with Man[facility] Urology Office/Clinic Noteon 06-01-2024 Urology Office/Clinic Note Urology Office/Clinic Note Chief Complaint f/u to starting Gemtesa HPI Staff PRW pt 8wks to starting Gemtesa 75mg qd therapy. DX: OAB & Enuresis (Botox tentatively planned for Jul 2024-Reminder in chart) Satisfied w/Gemtesa. Would like to cx Botox in July. No longer wetting the bed. Able to hold bladder longer. States it feels like she just had Botox. History of Present Illness I have reviewed and verified the staff HPI to be accurate for this encounter. Portions of this record may have been created with voice recognition artificial intelligence software, specifically [employer], [employer] and or [employer]. Substitutions may have occurred due to the inherent limitations of voice recognition and artificial intelligence software. Review of Systems PHQ Score Initial Depression Screen Score: 0 SCORE Physical Exam Vitals & Measurements HT: 71 in HT: 180 cm WT: 103 kg WT: 226.6 lb BMI: 31.79 General: Well developed, well nourished, in no acute distress. Genitourinary: Flank Pain: none. Bladder: nonpalpable. Assessment/Plan PRW pt bbsq 12 (22) 1. Overactive bladder (N32.81: Overactive bladder) s/p botox 200u w/ PRW 07/08/23. Has had a total of 6 treatments all with 200 units. 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 Discussed with patient regulations around Botox which states that max dose of Botox treatments in the entire body is 400 units every 3 months. This is made her ineligible for bladder treatments recently. She plans to have 1 more Botox treatment to the extremity at the end of April, would like to proceed to alternating treatments between bladder and hand every 3 months to manage both issues. [2] Patient previously trialed oxybutynin ER 10 mg daily which she was tolerating well without side effects, had some improvement of her symptoms but not happy with where she was at at that time. Prior office visit, patient was started on Gemtesa 75 mg daily. She is tolerating this well without side effects. She has had significant improvement of her urinary symptoms. She is able to hold her urine for up to 3 hours, no longer wearing pads, having no dribbling or incontinence. Unable to obtain PVR in office today due to availability of bladder scanner. Patient states that she would prefer to stay on medication versus scheduling Botox again, especially given that she is doing so well with Botox in her arm and this is helped with her balance overall. -Continue Gemtesa, refill sent to pharmacy. -Follow-up 1 year with PVR, sooner if needed Ordered: vibegron, 75 mg = 1 tab(s), Oral, Daily, # 90 tab(s), Refills(s) 3, Pharmacy: [facility]/pharmacy #[id number], 180, cm, 06/01/24 14:27:00 EDT, Height/Length Dosing, 103, kg, 06/01/24 14:27:00 EDT, Weight Dosing 2. Enuresis (R32: Unspecified urinary incontinence) See #1 UA today with trace intact blood, no signs of infection. Patient denies any episode of gross hematuria or urinary infection since prior office visit. Ordered: vibegron, 75 mg = 1 tab(s), Oral, Daily, # 90 tab(s), Refills(s) 3, Pharmacy: [facility]/pharmacy #[id number], 180, cm, 06/01/24 14:27:00 EDT, Height/Length Dosing, 103, kg, 06/01/24 14:27:00 EDT, Weight Dosing Urnls Dip Stick Auto w/o Microscopy POC 68373 Follow-up With When Contact Information DIANA Case APRN, Elo Michel, FAM, URL Additional Instructions: 1 year Patient Education Urinary Incontinence Overactive Bladder, Adult Problem List/Past Medical History Ongoing Adult BMI 33.0-33.9 kg/sq m Advanced maternal age patient Breast cancer screening Bronchitis Cervical cancer screening Congestion of nasal sinus Cough Encounter for weight management Enuresis Excessive dietary caloric intake Fibroids History of brain tumor History of gestational diabetes Insulin resistance Microhematuria Oligohydramnios Overactive bladder Placental insufficiency Postinfective urethral stricture in female Well woman exam Historical Biopsy of brain tissue tumor Brain tumor Cholecystectomy CS - section Gestational diabetes Gestational diabetes mellitus, class A>2< Incontinence without sensory awareness Nocturia Nocturnal enuresis Other microscopic hematuria Stress incontinence Urge incontinence Urgency of urination Procedure/Surgical History Botulinum toxin type A (02/17/2024), 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 Medications baclofen, 10 mg, Oral, BID Botox 100 units injection Capmist (more content not included)... Normal [facility] Comment on above: Result Comment: Elec tronically Signed By: DIANA Case APRN, [place] X\.br\Date and Time Signed: 06/01/24 15:03 EDT [place] 05-26-2024 CNOV Office Visit (REHAV) MONIKA HASKINS ([id number]) 1970 F Date Time Provider Department 05/26/24 1:00 PM PATRICK BUSTAMANTE During your visit today, we recorded the following information about you: Pulse Blood pressure 93/minute 124/80 Patrick Bustamante MD 05/25/2024 5:14 PM Signed You have received botulinum toxin injections today. The skin around the site of injections should be monitored for a couple of days. If redness or swelling occur, the skin should be examined by a health healthcare corporate account director to rule out infection. If you experience pain in the muscles injected over the next few days, you can take Tylenol to control the pain (unless contra-indicated). Please call our office at [phone] with any questions or concerns. MD Dianna Sun Keith, MD 05/26/2024 1:38 PM Signed BOTULINUM TOXIN THERAPY - Informed consent was signed on 11/12/2023. Patient accompanied by: No one. Current complaints / history since last visit: most recent botulinum toxin injections on 02/18/2024. She reports that botox injections were effective with less stiffness and improved range of motion. There was better positioning in the left arm. Walking was better. It was easier to open her hand. She was able to wear her wedding ring. She has occasional spasms. Oral antispasticity medications: Baclofen 10 mg three times daily Illnesses / hospitalizations since the last visit: No Other updates: Her first grandchild is due in July 2024 Anticoagulation: No Home stretching/exercise routine: She performs stretching exercises daily PT/OT: She is in physical therapy BT therapy effective? Yes - stiffness, pain/discomfort, active function and other (range of motion) Duration of benefit: 10 weeks Side effects: No Spasm scale: 2=Infrequent full spasms occuring less than once per hour Pain related to the purpose of the visit: Yes LOCATION: Left shoulder PAIN SCALE: 2 on a scale of 0-10 PAIN CHARACTER: dull and constant DURATION: (How long have you had the pain?) Several years FREQUENCY: (How often does the pain occur?) Occurs constantly Patient Entered Data PROMIS No data to display Spasticity NRS 02/18/2024 11/12/2023 -- Spasm Scale 2=Infrequent full spasms occuring less than once per hour 2=Infrequent full spasms occuring less than once per hour Spasm Scale - Trendable Number 2 2 Spasm Scale No data to display Global Impression of Change No data to display Nutritional status: appetite is good, weight is stable, swallowing with no problems Driving issues: No issues per patient Safety concerns regarding living situations and safety at home: No At risk for falling: Yes, frequency once every 2 weeks, no injuries Examination: Strength Right Left Shoulder abduction 5 2+ Elbow flexion 5 1+ Elbow extension 5 2 Wrist extension 5 0 Hip flexion 5 3+ Knee flexion 5 2 Knee extension 5 4 Plantarflexion 5 Dorsiflexion 5 Strength: She is wearing left AFO. Spasticity Right Left Shoulder 0 3 Elbow flexors 0 2 Elbow extensors 0 3 Wrist flexors 0 0 Wrist extensors 0 2 Finger flexors 0 2 Finger extensors 0 0 Hip adductors 0 1 Knee extensors 0. 1 Knee flexors 0 0 Plantarflexors 0 Modified Francine Scale 0 - No increase in tone 1 - Slight increase in tone (catch and release at end of ROM) 1+ - Slight increase in tone, manifested by a catch, followed by minimal resistance throughout remainder (less than half of ROM) 2 - Marked increase in tone through most of the ROM, but affected part(s) easily moved 3 - Considerable increase in tone; passive movement difficult 4 - Affected part(s) rigid in flexion or extension She is wearing left AFO Spasms observed: RUE: no right upper extremity spasms LUE: no left upper extremity spasms RLE: no right lower extremity spasms LLE: no left lower extremity spasms [facility] MS TIMED 25 FOOT WALK: Not tested. Assistance required: crutches (She uses a forearm crutch) Ambulation Index Score: 4 - Unilateral support and 25 ft <20 sec OR no support and 25 ft > 20 sec UNIVERSAL PROTOCOL / SAFETY CHECKLIST Procedure to be Performed: Botulinum Toxin Injections Sign In: A Moment of CARE was completed. Personnel directly involved with the procedure wore the appropriate PPE (Personal Protective Equipment). Special equipment: EMG Patient/Surrogate Stated/Verified: PATIENT VERIFIED(optional for EMERGENT procedures): Patient name, Date of , Relevant allergies, and The intended procedure Time Out Communication: Intended patient and procedure match the source documents. Consent documented and matches the intended procedure. Correct side/site marked and visible. Medications required for procedure verified. Sign Out: SIGN OUT (optional for EMERGENT procedures): LYN Bustamante MD The risks, benefits and alternatives of the procedure were expla (more content not included)... Normal [facility] Ambulatory Visit Summaryon 0 - Ambulatory Visit Summary Ambulatory Visit Summary MONIKA HASKINS :1970 Visit Date:05/25/2024 Ambulatory Visit Instructions Your Diagnosis Encounter for weight management Adult BMI 33.0-33.9 kg/sq m Your Care Team Attending Physician - Ara Michelle Primary Care Physician - Ara Michelle This Is Your Medications List APAP/ASA/caffeine (Excedrin Extra Strength) acetaminophen (Tylenol) baclofen cyanocobalamin (Vitamin B-12 1000 mcg oral tablet) dextromethorphan/guai fenesin/pseudoephedri ne (Capmist DM 15 mg-400 mg-60 mg oral tablet) estradiol (estradiol 0.5 mg Tab) onabotulinumtoxinA (Botox 100 units injection) oxybutynin (oxybutynin 10 mg ER Tab) phentermine (phentermine 37.5 mg Tab) tirzepatide (Mounjaro 5 mg/0.5 mL subcutaneous solution) valacyclovir (Valtrex 1 g Tab) vibegron (Gemtesa 75 mg oral tablet) Procedures Performed Botulinum toxin type A (02/17/2024), 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 Discharge Vitals Temperature (Temporal Artery) 36.5 ?C Heart Rate (Peripheral) 75 Respiratory Rate 20 Blood Pressure 120/84 Height 180 cm Height 71 in Weight 108 kg Weight 237.6 lb BMI 33.33 What to do next Scheduled Follow-Up Appointments Friday 2:30 PM EDT With: DIANA Case APRN, Elo Michel Where: [facility] Invalid Interpretation Code [address] [place] [address]- \.br\ 2024 9:30 AM EST \.br\ With:\.br\ Where: [facility] Medicine Office/Clini c Noteon 05-25-2024 Family Medicine Office/Clinic Note Family Medicine Office/Clinic Note HPI Staff Monika is a 53 year old female presenting for 1 month follow up Weight management: Semaglutide is Just is not working de 01/14/24... Stopped last week and did not refill. Sleeping well:Yes, 6-8 hours Chest pain:No Tremors:No Headaches:Yes But this because of her brain tumor Heart fluttering:No Blurred Vision:No Beginning weight: 241.78 Previous weight: 241.51 Today's weight: 237.6 Questions/Concerns: none History of Present Illness pt presents today for weight management Review of Systems PHQ Score Initial Depression Screen Score: 0 SCORE Physical Exam Vitals & Measurements T: 36.5 ?C(Temporal Artery) HR: 75(Peripheral) RR: 20 BP: 120/84 SpO2: 99% HT: 71 in HT: 180 cm WT: 108 kg WT: 237.6 lb BMI: 33.33 General: alert, no acute distress ENMT: oral mucosa moist, no pharyngeal erythema or exudate Cardiovascular: regular rate and rhythm, normal peripheral perfusion Respiratory: Lungs CTA, respirations non labored Extremities: no deformity, no trauma Neurological: oriented x 4, LOC appropriate for age, CN II-XII intact, motor strength equal & normal bilaterally, speech normal Assessment/Plan 1. Encounter for weight management (Z76.89: Persons encountering health services in other specified circumstances) pt is not losing weight on ozempic and is not able to afford it. will send adipex to [facility]. medication agreement signed. RTC 4 weeks Ordered: phentermine, 37.5 mg = 1 tab(s), Oral, Daily, # 30 tab(s), Refills(s) 0, Pharmacy: [facility], 180, cm, 05/25/24 10:36:00 EDT, Height/Length Dosing, 108, kg, 05/25/24 10:36:00 EDT, Weight Dosing 2. Adult BMI 33.0-33.9 kg/sq m (Z68.33: Body mass index [BMI] 33.0-33.9, adult) pt continue making good food choices and exercising Follow-up No qualifying data available Problem List/Past Medical History Ongoing Adult BMI 33.0-33.9 kg/sq m Advanced maternal age patient Breast cancer screening Bronchitis Cervical cancer screening Congestion of nasal sinus Cough Encounter for weight management Enuresis Excessive dietary caloric intake Fibroids History of brain tumor History of gestational diabetes Insulin resistance Microhematuria Oligohydramnios Overactive bladder Placental insufficiency Postinfective urethral stricture in female Well woman exam Historical Biopsy of brain tissue tumor Brain tumor Cholecystectomy CS - section Gestational diabetes Gestational diabetes mellitus, class A>2< Incontinence without sensory awareness Nocturia Nocturnal enuresis Other microscopic hematuria Stress incontinence Urge incontinence Urgency of urination Procedure/Surgical History Botulinum toxin type A (02/17/2024), 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 Medications baclofen, 10 mg, Oral, BID Botox 100 units injection Capmist DM 15 mg-400 mg-60 mg oral tablet, 1 tab(s), Oral, q4hr estradiol 0.5 mg Tab, 0.5 mg= 1 tab(s), Oral, Daily Excedrin Extra Strength, 2 tab(s), Oral, q6hr, PRN Gemtesa 75 mg oral tablet, 75 mg= 1 tab(s), Oral, Daily, 6 refills Mounjaro 5 mg/0.5 mL subcutaneous solution, 5 mg, SubCutaneous, qWeek, 2 refills, Not taking oxybutynin 10 mg ER Tab, 10 mg= 1 tab(s), Oral, Daily, 3 refills, Not taking phentermine 37.5 mg Tab, 37.5 mg= 1 tab(s), Oral, Daily Tylenol, 650 mg, Oral, PRN Valtrex 1 g Tab, 1 gm= 1 tab(s), Oral, BID Vitamin B-12 1000 mcg oral tablet, 1000 mcg= 1 tab(s), Oral, Daily, 5 refills Allergies Bee Stings (Swelling) morphine (Rash) Social History Alcohol - Denies Alcohol Use, 09/16/2011 Substance Abuse - Denies Substance Abuse, 09/16/2011 Tobacco - Denies Tobacco Use, 09/16/2011 Never (less than 100 in lifetime) Tobacco Use:. Never Smokeless Tobacco Use:. Cigarettes, Household tobacco concerns: No. Yes, 05/25/2024 Family History Acute myocardial infarction: Negative: Father. Diabetes mellitus: Mother and Father. Heart disease: Father. Immunizations Vaccine Date Status Comments influenza virus vaccine, inactivated 10/08/2023 Given influenza virus vaccine, inactivated - Not Given Expectation Not Necessary error influenza virus vaccine, inactivated 09/17/2021 Recorded influenza virus vaccine, inactivated 09/05/2021 Recorded SARS-CoV-2 (COVID-19) Ad26 vaccine 08/2021 Recorded SARS-CoV-2 (COVID-19) mRNA BNT-162b2 vax 08/13/2021 Recorded 2023-07-22: TPV40 SARS-CoV-2 (COVID-19) Ad26 vaccine 07/2021 Recorded SARS-CoV-2 (COVID-19) mRNA BNT-162b2 vax 07/23/2021 Recorded 2023-07-22: TPV40 influe (more content not included)... Normal [facility] Comment on above: Result Comment: Elec tronically Signed By: Ara Michelle\Date and Time Signed: 05/25/24 10:52 EDT Jessica 05-07-2024 [facility] Telephone ([facility]) MONIKA HASKINS ([id number]) 1970 F Date Time Provider Department 05/07/24 MIO ROGERS During your visit today, we recorded the following information about you: Leora Blanca 05/07/2024 10:45 AM Signed Monika Haskins is calling Mio Rogers MD today regarding Individualized Education Plan Aide - Other (Davis Franco Form ) Patient has been identified by name and birthdate. Patient called to enquire if we have received the WiSpry Franco Form faxed to us minutes ago, I checked and informed her yes. She requested it to be filled and faxed back over today. The fax was forwarded over to the [facility] nurses. Patient can be reached at: [phone] (home) Blancagloria Lee May 07, 2024 Allergies As of Date: 05/07/2024 Noted Allergy Reaction MORPHINE 11/24/2015 4 - Hives Comments: Pt had a morphine injection and broke out in hives, with itching Date Reviewed: 04/16/2024 Reviewed by: Maryann Loza LPN - Fully Assessed Reason for Visit: Individualized Education Plan Aide - Other [3602] Cmt: Davis Franco Form Prescriptions as of 05/07/2024 - LORazepam (ATIVAN) 1 mg tablet Take 1-2 tablets prior to MRI procedure. - SEMAGLUTIDE SUBCUTANEOUS Inject 5 mg subcutaneously one time a week. - baclofen 10 mg tablet Take 1 tablet by mouth three times a day. - Estradiol (ESTRACE) 0.5 mg tablet Take 1 tablet by mouth once daily. - onabotulinum toxin type A (BOTOX) 100 unit solr Injected every 3 months for spasticity as directed. 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/14/2012 Abnormality of gait [R26.9] 02/17/2013 URI (upper respiratory infection) [J06.9] 03/15/2013 Cellulitis [L03.90] 07/27/2013 Nausea and vomiting [R11.2] 11/25/2013 Lack of energy [R53.83] 06/22/2014 UTI (lower urinary tract infection) [N39.0] 11/30/2014 Dental infection [K04.7] 08/12/2016 Fatigue [R53.83] 10/02/2017 Screening for endocrine disorder [Z13.29] 09/23/2018 Encounter Status:Closed by BLANCA LEE on 05/07/24 Normal [facility] CBC W Auto Differential pane l (Bld)on 04-16-2024 Basophils (Bld) [#/Vol] 0.04 10*3/uL Normal <0.11 [facility] Comment on above: Order Comment: Speci men Type: BLOOD SPECIMENOrdering Facility: [facility] Address: [address] [place] [address] Performed By: #### 5 7021-8 ####[facility] [id number] [place] [address] [place] Basophils/100 WBC (Bld) 0.5 % Normal [facility] Comment on above: Order Comment: Speci men Type: BLOOD SPECIMENOrdering Facility: [facility] Address: [address] [place] [address] Performed By: #### 5 7021-8 ####[facility] [id number] [place] [address] [place] Differential cell count method Nom (Bld) Auto Normal [facility] Comment on above: Order Comment: Speci men Type: BLOOD SPECIMENOrdering Facility: [facility] Address: [address] [place] [address] Performed By: #### 5 7021-8 ####[facility] [place] [id number] [place] [address] [place] Eosinophils (Bld) [#/Vol] 0.14 10*3/uL Normal <0.46 [facility] Comment on above: Order Comment: Speci men Type: BLOOD SPECIMENOrdering Facility: [facility] Address: [address] [place] [address] Performed By: #### 5 7021-8 ####[facility] [id number] [place] [address] [place] Eosinophils/100 WBC (Bld) 1.8 % Normal [facility] Comment on above: Order Comment: Speci men Type: BLOOD SPECIMENOrdering Facility: [facility] Address: [address] [place] [address] Performed By: #### 5 7021-8 ####[facility] [id number] [place] [address] [place] Erythrocyte distribution width (RBC) [Ratio] 13.1 % Normal 11.5-15.0 [facility] Comment on above: Order Comment: Speci men Type: BLOOD SPECIMENOrdering Facility: [facility] Address: [address] [place] [address] Performed By: #### 5 7021-8 ####[facility] [place] [id number] [place] [address] [place] Hematocrit (Bld) [Volume fraction] 41.9 % Normal 36.0-46.0 [facility] Comment on above: Order Comment: Speci men Type: BLOOD SPECIMENOrdering Facility: [facility] Address: [address] [place] [address] Performed By: #### 5 7021-8 ####[facility] [id number] [place] [address] [place] Hemoglobin (Bld) [Mass/Vol] 13.9 g/dL Normal 11.5-15.5 [facility] Comment on above: Order Comment: Speci men Type: BLOOD SPECIMENOrdering Facility: [facility] Address: [address] [place] [address] Performed By: #### 5 7021-8 ####[facility] [id number] [place] [address] [place] Immature granulocytes (Bld) [#/Vol] 10*3/uL Normal <0.10 [facility] Comment on above: Order Comment: Speci men Type: BLOOD SPECIMENOrdering Facility: [facility] Address: [address] [place] [address] Performed By: #### 5 7021-8 ####[facility] [id number] [place] [address] [place] Immature granulocytes/100 WBC (Bld) 0.3 % Normal [facility] Comment on above: Order Comment: Speci men Type: BLOOD SPECIMENOrdering Facility: [facility] Address: [address] [place] [address] Performed By: #### 5 7021-8 ####[facility] [place] [id number] [place] [address] [place] Lymphocytes (Bld) [#/Vol] 1.77 10*3/uL Normal 1.00-4.00 [facility] Comment on above: Order Comment: Speci men Type: BLOOD SPECIMENOrdering Facility: [facility] Address: [address] [place] [address] Performed By: #### 5 7021-8 ####[facility] [id number] [place] [address] [place] Lymphocytes/100 WBC (Bld) 22.2 % Normal [facility] Comment on above: Order Comment: Speci men Type: BLOOD SPECIMENOrdering Facility: [facility] Address: [address] [place] [address] Performed By: #### 5 7021-8 ####[facility] [place] [id number] [place] [address] [place] MCH (RBC) [Entitic mass] 28.5 pg Normal 26.0-34.0 [facility] Comment on above: Order Comment: Speci men Type: BLOOD SPECIMENOrdering Facility: [facility] Address: [address] [place] [address] Performed By: #### 5 7021-8 ####[facility] [place] [id number] [place] [address] [place] MCHC (RBC) [Mass/Vol] 33.2 g/dL Normal 30.5-36.0 [facility] Comment on above: Order Comment: Speci men Type: BLOOD SPECIMENOrdering Facility: [facility] Address: [address] [place] [address] Performed By: #### 5 7021-8 ####[facility] [id number] [place] [address] [place] MCV (RBC) [Entitic vol] 86.0 fL Normal 80.0-100.0 [facility] Comment on above: Order Comment: Speci men Type: BLOOD SPECIMENOrdering Facility: [facility] Address: [address] [place] [address] Performed By: #### 5 7021-8 ####[facility] [place] [id number] [place] [address] [place] Monocytes (Bld) [#/Vol] 0.61 10*3/uL Normal <0.87 [facility] Comment on above: Order Comment: Speci men Type: BLOOD SPECIMENOrdering Facility: [facility] Address: [address] [place] [address] Performed By: #### 5 7021-8 ####[facility] [id number] [place] [address] [place] Monocytes/100 WBC (Bld) 7.7 % Normal [facility] Comment on above: Order Comment: Speci men Type: BLOOD SPECIMENOrdering Facility: [facility] Address: [address] [place] [address] Performed By: #### 5 7021-8 ####[facility] [place] [id number] [place] [address] [place] Neutrophils (Bld) [#/Vol] 5.38 10*3/uL Normal 1.45-7.50 [facility] Comment on above: Order Comment: Speci men Type: BLOOD SPECIMENOrdering Facility: [facility] Address: [address] [place] [address] Performed By: #### 5 7021-8 ####[facility] [place] [id number] [place] [address] [place] Neutrophils/100 WBC (Bld) 67.5 % Normal [facility] Comment on above: Order Comment: Speci men Type: BLOOD SPECIMENOrdering Facility: [facility] Address: [address] [place] [address] Performed By: #### 5 7021-8 ####[facility] [id number] [place] [address] [place] Nucleated RBC (Bld) [#/Vol] 10*3/uL Normal <0.01 [facility] Comment on above: Order Comment: Speci men Type: BLOOD SPECIMENOrdering Facility: [facility] Address: [address] [place] [address] Performed By: #### 5 7021-8 ####[facility] [id number] [place] [address] [place] Nucleated RBC/100 WBC (Bld) [Ratio] 0.0 /100 WBC Normal [facility] Comment on above: Order Comment: Speci men Type: BLOOD SPECIMENOrdering Facility: [facility] Address: [address] [place] [address] Performed By: #### 5 7021-8 ####[facility] [id number] [place] [address] [place] Platelet mean volume (Bld) [Entitic vol] 12.3 fL Normal 9.0-12.7 [facility] Comment on above: Order Comment: Speci men Type: BLOOD SPECIMENOrdering Facility: [facility] Address: [address] [place] [address] Performed By: #### 5 7021-8 ####[facility] [id number] [place] [address] [place] Platelets (Bld) [#/Vol] 233 10*3/uL Normal 150-400 [facility] Comment on above: Order Comment: Speci men Type: BLOOD SPECIMENOrdering Facility: [facility] Address: [address] [place] [address] Performed By: #### 5 7021-8 ####[facility] [place] [id number] [place] [address] [place] RBC (Bld) [#/Vol] 4.87 10*6/uL Normal 3.90-5.20 [facility] Comment on above: Order Comment: Speci men Type: BLOOD SPECIMENOrdering Facility: [facility] Address: [address] [place] [address] Performed By: #### 5 7021-8 ####[facility] [place] [id number] [place] [address] [place] WBC (Bld) [#/Vol] 7.96 10*3/uL Normal 3.70-11.00 [facility] Comment on above: Order Comment: Speci men Type: BLOOD SPECIMENOrdering Facility: [facility] Address: [address] [place] [address] Performed By: #### 5 7021-8 ####[facility] [id number] [place] [address] [place] CNOVSPon 04-16-2024 CNOVSP Visit (SP) Office ([facility]) MONIKA HASKINS ([id number]) 1970 F Date Time Provider Department 04/16/24 4:00 PM MIO ROGERS [id number] During your visit today, we recorded the following information about you: Temperature Pulse Respiration Blood pressure 98.7 degrees 106/minute 20/minute 126/69 Weight Height 107.2 kg 1.803 m Mio Rogers MD 04/20/2024 10:14 AM Signed (Elements copied from prior note dated 09/17/2021, have been reviewed and updated where appropriate, and all reflect current assessment and medical decision-making during today's encounter, 04/16/2024) [facility] Monika Haskins is a 53 year old female patient. CC: AL amyloidoma of PROFILE GRINDER HPI: Monika Haskins is a 51 year old female who presents today for follow up of AL (lambda) amyloidoma of PROFILE GRINDER. Overall she is doing well. Left sided hemiparesis stable. MRIb on 04/16 with stable right cerebral hemisphere biopsy-proven amyloidoma compared to 12/16/2022. Treatment History: Cyclophosphamide 500 mg weekly 3 weeks on and 1 week off and dexamethasone 40 mg weekly. Start 12/02/12. Dexamethasone decreased to 12 mg weekly 08/06. Discontinued as of November 2013. Amyloid History: The patient states that she began to develop some difficulty with the use of her left leg. She eventually had evaluation for this and the etiology of the left leg weakness was thought to be due to a disc herniation. However she had progressive loss of function with spasticity of the left leg and this then progressed to also including the left arm and left side of her face. On November 04, 2012 well she underwent an MRI which identified a lesion in the deep white matter of the right parietal lobe adjacent to the lateral ventricle. She has undergone a stereotactic biopsy of this lesion. The pathology report documents amyloid deposition with associated gliosis and chronic inflammation. The [place] red stain showed evidence of globular and angiocentric deposits of amyloid material. Diagnosis confirmed by tandem mass spectometry. With regards to a history of inflammation, she states that with the of her son she had a complicated by a large intra-abdominal abscess. Review Of Systems: GENERAL:No fever, chills, sweats, night sweats or weight loss. HEENT:No changes in hearing or vision, no nose bleeds or other nasal problems, No odynophagia or dysphagia. + headaches NECK:Negative for lumps, goiter, pain and significant neck swelling RESPIRATORY: Negative for cough, wheezing or shortness of breath., No hemoptysis CARDIOVASCULAR: Negative for chest pain, leg swelling or palpitations. 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 NEUROLOGIC:See HPI SKIN:Negative for lesions, rash, and itching. PSYCHIATRIC: sleep and mood disturbance with dexamethasone HEMATOLOGIC/LYMPHATIC /IMMUNOLOGIC:bruising easily ENDOCRINE: Negative for cold or heat intolerance, polyuria, polydipsia and goiter. The remainder of the ROS was negative. Past medical history PAST MEDICAL HISTORY Diagnosis Date Deep venous thrombosis (HCC) right arm Foot drop left foot - ultimately thought to be dystonia Hypertension when sick after delivery of her baby 1 year ago Infection in abdomen (HCC) Pneumothorax Past surgical history PAST SURGICAL HISTORY Procedure Laterality Date , CLASSIC, IN-HOSP CARE Sep 14, 2011 CHOLECYSTECTOMY 1999 Allergies / intolerances ALLERGIES Allergen Reactions Morphine Hives Pt had a morphine injection and broke out in hives, with itching Medications iv contrast (will be provided with radiology test) MRI Brain Inject, intravenously, once for 1 dose.No IV access, insert saline lock prior to beginning of sedation, infusion, injection of imaging exam.Discontinue saline lock post exam. If Pt. has a central line or IVAD, may access for administration according to line specific nursing protocol.Once exam is complete flush line and de-access according to line specific nursing protocol in the MR contrast administration guidelines link LORazepam (ATIVAN) 1 mg tablet Take 1-2 tablets prior to MRI procedure. SEMAGLUTIDE SUBCUTANEOUS Inject 5 mg subcutaneously one time a week. baclofen 10 mg tablet Take 1 tablet by mouth three times a day. Estradiol (ESTRACE) 0.5 mg tablet Take 1 tablet by mouth once daily. onabotulinum toxin type A (BOTOX) 100 unit solr Injected every 3 months for spasticity as directed. Social history Social History Tobacco Use Smoking status: Never Smokeless tobacco: Never Substance Use Topics Alcohol (more content not included)... Normal [facility] Comprehensive metabolic 2000 panelon 04-16-2024 Albumin [Mass/Vol] 4.4 g/dL Normal 3.9-4.9 [facility] Comment on above: Order Comment: Speci men Type: BLOOD SPECIMENOrdering Facility: [facility] Address: [address] [place] [address] Performed By: #### 2 4323-8 ####[facility] [id number] [place] [address] [place] ALP [Catalytic activity/Vol] 53 U/L Normal 34-123 [facility] Comment on above: Order Comment: Speci men Type: BLOOD SPECIMENOrdering Facility: [facility] Address: [address] [place] [address] Performed By: #### 2 4323-8 ####[facility] [id number] [place] [address] [place] ALT [Catalytic activity/Vol] 8 U/L Normal 7-38 [facility] Comment on above: Order Comment: Speci men Type: BLOOD SPECIMENOrdering Facility: [facility] Address: [address] [place] [address] Performed By: #### 2 4323-8 ####[facility] [id number] [place] [address] [place] Anion gap [Moles/Vol] 12 mmol/L Normal 9-18 [facility] Comment on above: Order Comment: Speci men Type: BLOOD SPECIMENOrdering Facility: [facility] Address: [address] [place] [address] Performed By: #### 2 4323-8 ####[facility] [id number] [place] [address] [place] AST [Catalytic activity/Vol] 15 U/L Normal 13-35 [facility] Comment on above: Order Comment: Speci men Type: BLOOD SPECIMENOrdering Facility: [facility] Address: [address] [place] [address] Performed By: #### 2 4323-8 ####[facility] [id number] [place] [address] [place] Bilirubin [Mass/Vol] 0.3 mg/dL Normal 0.2-1.3 [facility] Comment on above: Order Comment: Speci men Type: BLOOD SPECIMENOrdering Facility: [facility] Address: [address] [place] [address] Performed By: #### 2 4323-8 ####[facility] [id number] [place] [address] [place] Calcium [Mass/Vol] 9.3 mg/dL Normal 8.5-10.2 [facility] Comment on above: Order Comment: Speci men Type: BLOOD SPECIMENOrdering Facility: [facility] Address: [address] [place] [address] Performed By: #### 2 4323-8 ####[facility] [id number] [place] [address] [place] Chloride [Moles/Vol] 105 mmol/L Normal 97-105 [facility] Comment on above: Order Comment: Speci men Type: BLOOD SPECIMENOrdering Facility: [facility] Address: [address] [place] [address] Performed By: #### 2 4323-8 ####[facility] [id number] [place] [address] [place] CO2 [Moles/Vol] 23 mmol/L Normal 22-30 [facility] Comment on above: Order Comment: Speci men Type: BLOOD SPECIMENOrdering Facility: [facility] Address: [address] [place] [address] Performed By: #### 2 4323-8 ####[facility] [id number] [place] [address] [place] Creatinine [Mass/Vol] 0.60 mg/dL Normal 0.58-0.96 [facility] Comment on above: Order Comment: Jacqueline ha Type: BLOOD SPECIMENOrdering Facility: [facility] Address: [address] [place] [address] Performed By: #### 2 4323-8 ####[facility] [id number] [address] Creatinine and Glomerular filtration rate.predicted panel (S/P/Bld) 109 mL/min/1.73m??? Normal >=60 [facility] Comment on above: Order Comment: Jacqueline ha Type: BLOOD SPECIMENOrdering Facility: [facility] Address: [address] [place] [address] Result Comment: Maddie mated Glomerular Filtration Rate (eGFR) is calculated using the 2020 CKD-EPI creatinine equation. This equation utilizes serum creatinine, sex, and age as parameters. The creatinine assay has traceable calibration to isotope dilution-mass spectrometry. Refer to KDIGO guidelines for clinical interpretation. In patients with unstable renal function, e.g. those with acute kidney injury, the eGFR may not accurately reflect actual GFR. Performed By: #### 2 4323-8 ####[facility] [id number] [place] [address] [place] Glucose [Mass/Vol] 96 mg/dL Normal 74-99 [facility] Comment on above: Order Comment: Jacqueline ha Type: BLOOD SPECIMENOrdering Facility: [facility] Address: [address] [place] [address] Result Comment: The [place] Diabetes Association (ADA) provides guidance for cutoff values for fasting glucose and random glucose. The ADA defines fasting as no caloric intake for at least 8 hours. Fasting plasma glucose results between 100 to 125 mg/dL indicate increased risk for diabetes (prediabetes). Fasting plasma glucose results greater than or equal to 126 mg/dL meet the criteria for diagnosis of diabetes. In the absence of unequivocal hyperglycemia, results should be confirmed by repeat testing. In a patient with classic symptoms of hyperglycemia or hyperglycemic crisis, random plasma glucose results greater than or equal to 200 mg/dL meet the criteria for diagnosis of diabetes. Reference: Standards of Medical Care in Diabetes 2016, [place] Diabetes Association. Diabetes Care. 2016.39(Suppl 1). Performed By: #### 2 4323-8 ####[facility] [id number] [place] [address] [place] Potassium [Moles/Vol] 4.1 mmol/L Normal 3.7-5.1 [facility] Comment on above: Order Comment: Speci men Type: BLOOD SPECIMENOrdering Facility: [facility] Address: [address] [place] [address] Performed By: #### 2 4323-8 ####[facility] [id number] [place] [address] [place] Protein [Mass/Vol] 7.6 g/dL Normal 6.3-8.0 [facility] Comment on above: Order Comment: Speci men Type: BLOOD SPECIMENOrdering Facility: [facility] Address: [address] [place] [address] Performed By: #### 2 4323-8 ####[facility] [id number] [place] [address] [place] Sodium [Moles/Vol] 140 mmol/L Normal 136-144 [facility] Comment on above: Order Comment: Speci men Type: BLOOD SPECIMENOrdering Facility: [facility] Address: [address] [place] [address] Performed By: #### 2 4323-8 ####[facility] [id number] [place] [address] [place] Urea nitrogen [Mass/Vol] 14 mg/dL Normal 7-21 [facility] Comment on above: Order Comment: Speci men Type: BLOOD SPECIMENOrdering Facility: [facility] Address: [address] [place] [address] Performed By: #### 2 4323-8 ####[facility] [id number] [address] IMMUNOFIXATION SCREEN, SERUM on 04-16-2024 MPA RESULT No M protein is identified. Normal No M protein is identified. [facility] Comment on above: Order Comment: Speci men Type: BLOOD SPECIMENOrdering Facility: [facility] Address: [address] [place] [address] Performed By: #### I FESC ####[facility] LABIA [id number] OF [facility] STAFF REVIEW (MPA) Reviewed by Dr. Edmundo Walden MD Normal [facility] Comment on above: Order Comment: Speci men Type: BLOOD SPECIMENOrdering Facility: [facility] Address: [address] [place] [address] Performed By: #### I FESC ####[facility] [id number] [place] [address] [place] IMMUNOGLOBULINS,IGG,IGA,IGMo n 04-16-2024 IgA [Mass/Vol] 437 mg/dL High 70-400 [facility] Comment on above: Order Comment: Speci men Type: BLOOD SPECIMENOrdering Facility: [facility] Address: [address] [place] [address] Performed By: #### S ERIMM ####[facility] LABIA [id number] [place] [address] [place] IgG [Mass/Vol] 1140 mg/dL Normal 700-1600 [facility] Comment on above: Order Comment: Speci men Type: BLOOD SPECIMENOrdering Facility: [facility] Address: [address] [place] [address] Performed By: #### S ERIMM ####[facility] LABIA [id number] [place] [address] [place] IgM [Mass/Vol] 233 mg/dL High 40-230 [facility] Comment on above: Order Comment: Speci men Type: BLOOD SPECIMENOrdering Facility: [facility] Address: [address] [place] [address] Performed By: #### S NÉSTOR ####[facility] LABCLIA [id number] [place] [address] [place] KAPPA/BREWER,FREE,SERon 2023 Immunoglobulin light chains.kappa.free (S) [Mass/Vol] 19.4 mg/L Normal 3.3-19.4 [facility] Comment on above: Order Comment: Speci men Type: BLOOD SPECIMENOrdering Facility: [facility] Address: [address] [place] [address] Result Comment: Rare ly, increased serum free light chains levels may not be detected or accurately quantified due to prozone phenomenon or in high viscosity samples using this immunoturbidimetric assay. Correlation with other laboratory results and clinical findings is recommended. The [place] Free Light Chain was performed using the Binding Site Optilite immunoturbidimetric method. Result obtained with different assay methods or kits cannot be used interchangeably. Performed By: #### K LFRS ####[facility] LABCLIA [id number] [place] [address] [place] Immunoglobulin light chains.kappa/Immuno globulin light chains.lambda (S) [Mass ratio] 1.13 Normal 0.26-1.65 [facility] Comment on above: Order Comment: Speci men Type: BLOOD SPECIMENOrdering Facility: [facility] Address: [address] [place] [address] Performed By: #### K LFRS ####[facility] LABCLIA [id number] [place] [address] [place] Immunoglobulin light chains.lambda.free [Mass/Vol] 17.1 mg/L Normal 5.7-26.3 [facility] Comment on above: Order Comment: Speci men Type: BLOOD SPECIMENOrdering Facility: [facility] Address: [address] [place] [address] Result Comment: Rare ly, increased serum free light chains levels may not be detected or accurately quantified due to prozone phenomenon or in high viscosity samples using this immunoturbidimetric assay. Correlation with other laboratory results and clinical findings is recommended. The Lambda Free Light Chain was performed using the Binding Site Optilite immunoturbidimetric method. Result obtained with different assay methods or kits cannot be used interchangeably. Performed By: #### K LFRS ####[facility] LABCLIA [id number] [place] [address] [place] MR Brain WO and W contrast I Chivo 04-16-2024 IMPRESSION: 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 Linux Security Administrator: PAUL Transcribe Date/Time: Apr 16 2024 3:47P Dictated by : CHICO GUALLPA MD This examination was interpreted and the report reviewed and electronically signed by: CHICO GUALLPA MD on Apr 16 2024 3:57PM [facility] DIVISION OF RADIOLOGY * * *Final Report* * * DATE OF EXAM: Apr 16 2024 3:05PM CAM 0295 - MRI BRAIN WO/W IVCON / PROCEDURE REASON: multiple diagnoses * * * * Physician Interpretation * * * * EXAMINATION: MRI BRAIN WO/W IVCON CLINICAL HISTORY: Brain tumor (HCC) [place] amyloidosis (HCC) - - - Primary neoplasm/metastasis/p ostop F/U - Brain/PROFILE GRINDER neoplasm, assess treatment response. Upon further review the electronic medical record, patient has history of [place] amyloidosis and biopsy-proven RIGHT frontal lobe amyloidoma. Continued surveillance. TECHNIQUE: Routine brain MRI protocol without and with contrast including diffusion images. MQ: MRBWOW_2 Contrast: 20 mL Dotarem IV COMPARISON: Multiple prior MRI brain examinations most recently 12/16/2022 RESULT: Acute Change: There is no evidence of restricted diffusion to suggest an acute infarct. Hemorrhage: No evidence of prior parenchymal hemorrhage on the gradient echo images. Mass Lesion/ Mass Effect: Redemonstrated postoperative changes of RIGHT parietal omar hole craniotomy for RIGHT frontoparietal mass biopsy. Redemonstrated intrinsically T1 hyperintense, heterogeneous peripheral T2/FLAIR hyperintense lesion within the juxtacortical and subcortical white matter of the RIGHT perirolandic region extending into the RIGHT frontoparietal centrum semiovale ovale and periventricular white matter, RIGHT caudate body, and RIGHT thalamus and posterior lentiform nucleus. Utilizing coregistration software for slice by slice comparison, no significant interval change in size or distribution of signal abnormality from 12/16/2022. Few speckled susceptibility artifact throughout the RIGHT frontoparietal mass similar to prior and consistent with scattered intralesional calcifications. No definite enhancement. Chronic Change: The white matter is within normal limits of signal intensity for age. Parenchyma: Redemonstrated atrophy of the RIGHT perirolandic region and superior parietal lobule, RIGHT parietal centrum semiovale ovale, and posterior body of the corpus callosum similar to multiple prior studies The brain parenchyma is otherwise within normal limits of signal intensity and morphology. Ventricles: Normal caliber and morphology. Skull Base: Hypothalamic and pituitary region are grossly normal. Craniocervical junction is normal. No significant marrow replacement process. Vasculature: Major intracranial arterial structures, and dural venous sinuses show typical flow void, suggesting patency by spin echo criteria. Other: The visualized paranasal sinuses and mastoid air cells are clear. The orbits and extracranial soft tissues are unremarkable. DIVISION OF RADIOLOGY Provider, [facility] - 04/16/2024 * * *Final Report* * * DATE OF EXAM: Apr 16 2024 3:05PM CAM 0295 - MRI BRAIN WO/W IVCON / PROCEDURE REASON: multiple diagnoses * * * * Physician Interpretation * * * * EXAMINATION: MRI BRAIN WO/W IVCON CLINICAL HISTORY: Brain tumor (HCC) [place] amyloidosis (HCC) - - - Primary neoplasm/metastasis/p ostop F/U - Brain/PROFILE GRINDER neoplasm, assess treatment response. Upon further review the electronic medical record, patient has history of [place] amyloidosis and biopsy-proven RIGHT frontal lobe amyloidoma. Continued surveillance. TECHNIQUE: Routine brain MRI protocol without and with contrast including diffusion images. MQ: MRBWOW_2 Contrast: 20 mL Dotarem IV COMPARISON: Multiple prior MRI brain examinations most recently 12/16/2022 RESULT: Acute Change: There is no evidence of restricted diffusion to suggest an acute infarct. Hemorrhage: No evidence of prior parenchymal hemorrhage on the gradient echo images. Mass Lesion/ Mass Effect: Redemonstrated postoperative changes of RIGHT parietal omar hole craniotomy for RIGHT frontoparietal mass biopsy. Redemonstrated intrinsically T1 hyperintense, heterogeneous peripheral T2/FLAIR hyperintense lesion within the juxtacortical and subcortical white matter of the RIGHT perirolandic region extending into the RIGHT frontoparietal centrum semiovale ovale and periventricular white matter, RIGHT caudate body, and RIGHT thalamus and posterior lentiform nucleus. Utilizing coregistration software for slice by slice comparison, no significant interval change in size or distribution of signal abnormality from 12/16/2022. Few speckled susceptibility artifact throughout the RIGHT frontoparietal mass similar to prior and consistent with scattered intralesional calcifications. No definite enhancement. Chronic Change: The white matter is within normal limits of signal intensity for age. Parenchyma: Redemonstrated atrophy of the RIGHT perirolandic region and superior parietal lobule, RIGHT parietal centrum semiovale ovale, and posterior body of the corpus callosum similar to multiple prior studies The brain parenchyma is otherwise within normal limits of signal intensity and morphology. Ventricles: Normal caliber and morphology. Skull Base: Hypothalamic and pituitary region are grossly normal. Craniocervical junction is normal. No significant marrow replacement process. Vasculature: Major intracranial arterial structures, and dural venous sinuses show typical flow void, suggesting patency by spin echo criteria. Other: The visualized paranasal sinuses and mastoid air cells are clear. The orbits and extracranial soft tissues are unremarkable. IMPRESSION IMPRESSION: 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 Linux Security Administrator: PAUL Transcribe Date/Time: Apr 16 2024 3:47P Dictated by : CHICO GUALLPA MD This examination was interpreted and the report reviewed and electronically signed by: CHICO GUALLPA MD on Apr 16 2024 3:57PM EST [facility] Radiology Study observation (narrative) [facility] MR Brain WO and W contrast I VOrdered By: [facility] Provider on 04-16-2024 [facility] MRI BRAIN WO/W IVCONon 04-16 MRI BRAIN WO/W IVCON * * *Final Report* * * DATE OF EXAM: Apr 16 2024 3:05PM CAM 0295 - MRI BRAIN WO/W IVCON / PROCEDURE REASON: multiple diagnoses * * * * Physician Interpretation * * * * EXAMINATION: MRI BRAIN WO/W IVCON CLINICAL HISTORY: Brain tumor (HCC) [place] amyloidosis (HCC) - - - Primary neoplasm/metastasis/p ostop F/U - Brain/PROFILE GRINDER neoplasm, assess treatment response. Upon further review the electronic medical record, patient has history of [place] amyloidosis and biopsy-proven RIGHT frontal lobe amyloidoma. Continued surveillance. TECHNIQUE: Routine brain MRI protocol without and with contrast including diffusion images. MQ: MRBWOW_2 Contrast: 20 mL Dotarem IV COMPARISON: Multiple prior MRI brain examinations most recently 12/16/2022 RESULT: Acute Change: There is no evidence of restricted diffusion to suggest an acute infarct. Hemorrhage: No evidence of prior parenchymal hemorrhage on the gradient echo images. Mass Lesion/ Mass Effect: Redemonstrated postoperative changes of RIGHT parietal omar hole craniotomy for RIGHT frontoparietal mass biopsy. Redemonstrated intrinsically T1 hyperintense, heterogeneous peripheral T2/FLAIR hyperintense lesion within the juxtacortical and subcortical white matter of the RIGHT perirolandic region extending into the RIGHT frontoparietal centrum semiovale ovale and periventricular white matter, RIGHT caudate body, and RIGHT thalamus and posterior lentiform nucleus. Utilizing coregistration software for slice by slice comparison, no significant interval change in size or distribution of signal abnormality from 12/16/2022. Few speckled susceptibility artifact throughout the RIGHT frontoparietal mass similar to prior and consistent with scattered intralesional calcifications. No definite enhancement. Chronic Change: The white matter is within normal limits of signal intensity for age. Parenchyma: Redemonstrated atrophy of the RIGHT perirolandic region and superior parietal lobule, RIGHT parietal centrum semiovale ovale, and posterior body of the corpus callosum similar to multiple prior studies The brain parenchyma is otherwise within normal limits of signal intensity and morphology. Ventricles: Normal caliber and morphology. Skull Base: Hypothalamic and pituitary region are grossly normal. Craniocervical junction is normal. No significant marrow replacement process. Vasculature: Major intracranial arterial structures, and dural venous sinuses show typical flow void, suggesting patency by spin echo criteria. Other: The visualized paranasal sinuses and mastoid air cells are clear. The orbits and extracranial soft tissues are unremarkable. IMPRESSION: 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 Linux Security Administrator: PAUL Transcribe Date/Time: Apr 16 2024 3:47P Dictated by : CHICO GUALLPA MD This examination was interpreted and the report reviewed and electronically signed by: CHICO GUALLPA MD on Apr 16 2024 3:57PM EST [id number] Normal [facility] Lab Reportson 03-24-2024 Lab Reports [id number] Normal [facility] Ambulatory Visit Summaryon 0 03-23-2024 Ambulatory Visit Summary MONIKA HASKINS :1970 Visit Date:03/23/2024 Ambulatory Visit Instructions Your Diagnosis Overactive bladder Enuresis Your Care Team Attending Physician - DIANA Case APRN, Elo Michel Primary Care Physician - Ara Michelle This Is Your Medications List vibegron (Gemtesa 75 mg oral tablet) Contact prescribing physician if questions or concerns APAP/ASA/caffeine (Excedrin Extra Strength) acetaminophen (Tylenol) baclofen benzonatate (benzonatate 200 mg oral capsule) cyanocobalamin (Vitamin B-12 1000 mcg oral tablet) dextromethorphan/guai fenesin/pseudoephedri ne (Capmist DM 15 mg-400 mg-60 mg oral tablet) estradiol (estradiol 0.5 mg Tab) onabotulinumtoxinA (Botox 100 units injection) oxybutynin (oxybutynin 10 mg ER Tab) tirzepatide (Mounjaro 5 mg/0.5 mL subcutaneous solution) valacyclovir (Valtrex 1 g Tab) Procedures Performed Botulinum toxin type A (02/17/2024), 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 Discharge Vitals Heart Rate (Peripheral) 60 Respiratory Rate 16 Blood Pressure 130/70 Height 180 cm Height 71 in Weight 103.6 kg Weight 227.92 lb BMI 31.98 What to do next Scheduled Follow-Up Appointments Friday 1:00 PM EDT With: DIANA Case APRN, Elo Michel Where: [facility] Invalid Interpretation Code [address] [place] [address]- \.br\ 2024 9:30 AM EST \.br\ With:\.br\ Where: [facility] Patient Educationon 03-23-20 Patient Education Obstetrics and Gynecology Overactive Bladder, Adult Overactive bladder is a condition in which a person has a sudden and frequent need to urinate. A person might also leak urine if he or she cannot get to the bathroom fast enough (urinary incontinence). Sometimes, symptoms can interfere with work or social activities. What are the causes? Overactive bladder is associated with poor nerve signals between your bladder and your brain. Your bladder may get the signal to empty before it is full. You may also have very sensitive muscles that make your bladder squeeze too soon. This condition may also be caused by other factors, such as: ? Medical conditions: ? Urinary tract infection. ? Infection of nearby tissues. ? Prostate enlargement. ? Bladder stones, inflammation, or tumors. ? Diabetes. ? Muscle or nerve weakness, especially from these conditions: ? A spinal cord injury. ? Stroke. ? Multiple sclerosis. ? Parkinson's disease. ? Other causes: ? Surgery on the uterus or urethra. ? Drinking too much caffeine or alcohol. ? Certain medicines, especially those that eliminate extra fluid in the body (diuretics). ? Constipation. What increases the risk? You may be at greater risk for overactive bladder if you: ? Are an older adult. ? Smoke. ? Are going through menopause. ? Have prostate problems. ? Have a neurological disease, such as stroke, dementia, Parkinson's disease, or multiple sclerosis (MS). ? Eat or drink alcohol, spicy food, caffeine, and other things that irritate the bladder. ? Are overweight or obese. What are the signs or symptoms? Symptoms of this condition include a sudden, strong urge to urinate. Other symptoms include: ? Leaking urine. ? Urinating 8 or more times a day. ? Waking up to urinate 2 or more times overnight. How is this diagnosed? This condition may be diagnosed based on: ? Your symptoms and medical history. ? A physical exam. ? Blood or urine tests to check for possible causes, such as infection. You may also need to see a health care provider who specializes in urinary tract problems. This is called a urologist. How is this treated? Treatment for overactive bladder depends on the cause of your condition and whether it is mild or severe. Treatment may include: ? Bladder training, such as: ? Learning to control the urge to urinate by following a schedule to urinate at regular intervals. ? Doing Kegel exercises to strengthen the pelvic floor muscles that support your bladder. ? Special devices, such as: ? Biofeedback. This uses sensors to help you become aware of your body's signals. ? Electrical stimulation. This uses electrodes placed inside the body (implanted) or outside the body. These electrodes send gentle pulses of electricity to strengthen the nerves or muscles that control the bladder. ? Women may use a plastic device, called a pessary, that fits into the vagina and supports the bladder. ? Medicines, such as: ? Antibiotics to treat bladder infection. ? Antispasmodics to stop the bladder from releasing urine at the wrong time. ? Tricyclic antidepressants to relax bladder muscles. ? Injections of botulinum toxin type A directly into the bladder tissue to relax bladder muscles. ? Surgery, such as: ? A device may be implanted to help manage the nerve signals that control urination. ? An electrode may be implanted to stimulate electrical signals in the bladder. ? A procedure may be done to change the shape of the bladder. This is done only in very severe cases. Follow these instructions at home: Eating and drinking ? Make diet or lifestyle changes recommended by your health care provider. These may include: ? Drinking fluids throughout the day and not only with meals. ? Cutting down on caffeine or alcohol. ? Eating a healthy and balanced diet to prevent constipation. This may include: ? Choosing foods that are high in fiber, such as beans, whole grains, and fresh fruits and vegetables. ? Limiting foods that are high in fat and processed sugars, such as fried and sweet foods. Lifestyle ? Lose weight if needed. ? Do not use any products that contain nicotine or tobacco. These include cigarettes, chewing tobacco, and vaping devices, such as e-cigarettes. If you need help quitting, ask your health care provider. General instructions ? Take [id number] and prescription medicines only as told by your health care provider. ? If you were prescribed an antibiotic medicine, take it as told by your health care provider. Do not stop taking the antibiotic even if you start to feel better. ? Use any implants or pessary as told by your health care provider. ? If needed, wear pads to absorb urine leakage. ? Keep a log to track how much and when you drink, and when you need to urinate. This will help your health care provider monitor yo (more content not included)... Normal [facility] Urology Office/Clinic Noteon 03-23-2024 Urology Office/Clinic Note Chief Complaint Discuss bladder options HPI Staff PRW pt Last seen in our office 07/22/23 by CHAS DX: OAB & Enuresis S/P Botox 200u by PRW 07/08/23. S/P Botox 400u in arms (DX: Contracture) 02/17/24 @ [facility] (only able to get 400u Botox q3m) *Started on Oxybutynin 10mg ER 01/30/24 due to increased leaking Oxybutynin has helped. However she states she is where she was before Botox. Would like to discuss Gemtesa therapy. Bed wetting is biggest concern. History of Present Illness I have reviewed and verified the staff HPI to be accurate for this encounter. Portions of this record may have been created with voice recognition artificial intelligence software, specifically [employer], [employer] and or [employer]. Substitutions may have occurred due to the inherent limitations of voice recognition and artificial intelligence software. Review of Systems PHQ Score Initial Depression Screen Score: 0 SCORE Physical Exam Vitals & Measurements HR: 60(Peripheral) RR: 16 BP: 130/70 HT: 71 in HT: 180 cm WT: 103.6 kg WT: 227.92 lb BMI: 31.98 General: Well developed, well nourished, in no acute distress. Genitourinary: Flank Pain: none. Bladder: nonpalpable. Assessment/Plan 1. Overactive bladder (N32.81: Overactive bladder) UA today without signs of bladder infection. She denies any urinary infection or episode of gross hematuria since prior office visit. s/p botox 200u w/ PRW 07/08/23. Has had a total of 6 treatments all with 200 units. 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 Discussed with patient regulations around Botox which states that max dose of Botox treatments in the entire body is 400 units every 3 months. This is made her ineligible for bladder treatments recently. She plans to have 1 more Botox treatment to the extremity at the end of April, would like to proceed to alternating treatments between bladder and hand every 3 months to manage both issues. Patient has noticed worsening of her OAB and incontinence symptoms over the last 1 to 2 months. Patient was started on oxybutynin ER 10 mg daily. She is tolerating this well without side effects. She does notice some improvement of her symptoms, but is not happy with where she is at this time. We discussed trialing a different anticholinergic versus increasing oxybutynin dose versus a newer medication such as Myrbetriq/Gemtesa. We discussed that these medications are often cost prohibitive. We discussed possible side effects. Patient would like to trial newer bladder medication. Rx for Gemtesa 75 mg daily sent to the pharmacy. -Start Gemtesa. If Gemtesa is not covered by insurance or cost prohibitive, we will try to send in Myrbetriq. If she is unable to get Myrbetriq, patient agrees to increase oxybutynin ER 15 mg. -Plan for botox late Jul 2024 Ordered: vibegron, 75 mg = 1 tab(s), Oral, Daily, # 30 tab(s), Refills(s) 6, Pharmacy: [facility]/pharmacy #[id number], 180, cm, 03/23/24 14:37:00 EDT, Height/Length Dosing, 103.6, kg, 03/23/24 14:37:00 EDT, Weight Dosing Urnls Dip Stick Auto w/o Microscopy POC 17098 2. Enuresis (R32: Unspecified urinary incontinence) Patient experiences urge incontinence when Botox wears off. She has a hard time getting to the bathroom in a timely manner as she has to take her time getting out of bed due to her mobility issues and get her leg brace on. This typically improves with Botox. See #1. Follow-up With When Contact Information DIANA Case APRN, Elo Michel, FAM, URL Additional Instructions: 8 wks w/ PVR Patient Education Urinary Incontinence Overactive Bladder, Adult Kegel Exercises Problem List/Past Medical History Ongoing Advanced maternal age patient BMI 33.0-33.9,adult BMI 38.0-38.9,adult Breast cancer screening Bronchitis Cervical cancer screening Congestion of nasal sinus Cough Encounter for weight management Enuresis Excessive dietary caloric intake Fibroids History of brain tumor History of gestational diabetes Insulin resistance Microhematuria Oligohydramnios Overactive bladder Placental insufficiency Postinfective urethral stricture in female UTI symptoms Well woman exam Historical Biopsy of brain tissue tumor Brain tumor Cholecystectomy CS - section Gestational diabetes Gestational diabetes mellitus, class A>2< Incontinence without sensory awareness Nocturia Nocturnal enuresis Other microscopic hematuria Stress incontinence Urge incontinence Urgency of urination Procedure/Surgical History Botulinum toxin type A (02/17/2024), 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 Normal [facility] Comment on above: Result Comment: Elec tronically Signed By: DIANA Case APRN, Elo Michel\.br\Date and Time Signed: 03/23/24 15:15 EDT [place] 03-17-2024 Consent [id number] .00TIFF [facility] Family Medicine Office/Clini c Noteon 03-17-2024 Family Medicine Office/Clinic Note HPI Staff Monika is a 53 year old female presenting for acute visit Respiratory C/O: Onset: 4 daysa go Body aches: yes Chest congestion: yes Chills: yes Cough: yes dry cough Sputum production: no Sore throat: yes Ear complaints: no Eye itching/watering: no Fever: no Headache: yes Nasal congestion: yes Nasal discharge: yes Poor appetite: no Reduced activity: no Sinus pain/pressure: yes Sneezing: yes Wheezing: yes Ill contacts: no yes, son Remedies tried: mucinex, Robitussin DM, Excedrin Questions/Concerns: Cold sores, worst is chest hurts and headache. Pt did take ibuprofen before appointment History of Present Illness pt presents today for URI symptoms Review of Systems PHQ Score Initial Depression Screen Score: 0 SCORE Physical Exam Vitals & Measurements T: 37.5 ?C(Tympanic) HR: 106(Peripheral) RR: 18 BP: 110/74 SpO2: 96% HT: 70 in HT: 178.0 cm WT: 106.8 kg WT: 234.96 lb BMI: 33.71 General: alert, no acute distress ENMT: oral mucosa moist, yes pharyngeal erythema or no exudate, SAGE TM full of fluid Cardiovascular: regular rate and rhythm, normal peripheral perfusion Respiratory: Lungs CTA, respirations non labored Extremities: no deformity, no trauma Neurological: oriented x 4, LOC appropriate for age, CN II-XII intact, motor strength equal & normal bilaterally, speech normal Assessment/Plan 1. Bronchitis (J40: Bronchitis, not specified as acute or chronic) lungs are clear but coughing is very painful. throat is sore. will give 60mg kenalog, z radha and tessalon pearls. Ordered: azithromycin, = 1 packet(s), Oral, As Directed, as directed on package labeling, X 5 day(s), # 6 tab(s), Refills(s) 0, Pharmacy: [facility]/pharmacy #[id number], 178, cm, 03/17/24 12:53:00 EDT, Height/Length Dosing, 106.8, kg, 03/17/24 12:53:00 EDT, Weight Dosing benzonatate, 200 mg = 1 cap(s), Oral, TID, X 7 day(s), # 21 cap(s), Refills(s) 0, Pharmacy: [facility]/pharmacy #[id number], 178, cm, 03/17/24 12:53:00 EDT, Height/Length Dosing, 106.8, kg, 03/17/24 12:53:00 EDT, Weight Dosing dextromethorphan/guai fenesin/pseudoephedri ne, 1 tab(s), Oral, q4hr, 30 tab(s), Refill(s) 0, not to exceed 4 doses/day, [facility]acy #[id number], 178, cm, 03/17/24 12:53:00 EDT, Height/Length Dosing, 106.8, kg, 03/17/24 12:53:00 EDT, Weight Dosing triamcinolone, 60 mg = 1.5 mL, Injection, IntraMuscular, Once, Stop date 03/17/24 13:11:00 EDT, Routine, Start date 03/17/24 13:11:00 EDT, 03/17/24 13:11:00 EDT Influenza Type A&B POC 81327 Rapid COVID POC 96104 2. Cough (R05.9: Cough, unspecified) pt having deep painful cough Ordered: azithromycin, = 1 packet(s), Oral, As Directed, as directed on package labeling, X 5 day(s), # 6 tab(s), Refills(s) 0, Pharmacy: [facility]/pharmacy #[id number], 178, cm, 03/17/24 12:53:00 EDT, Height/Length Dosing, 106.8, kg, 03/17/24 12:53:00 EDT, Weight Dosing benzonatate, 200 mg = 1 cap(s), Oral, TID, X 7 day(s), # 21 cap(s), Refills(s) 0, Pharmacy: [facility]/pharmacy #[id number], 178, cm, 03/17/24 12:53:00 EDT, Height/Length Dosing, 106.8, kg, 03/17/24 12:53:00 EDT, Weight Dosing dextromethorphan/guai fenesin/pseudoephedri ne, 1 tab(s), Oral, q4hr, 30 tab(s), Refill(s) 0, not to exceed 4 doses/day, [facility]/pharmacy #[id number], 178, cm, 03/17/24 12:53:00 EDT, Height/Length Dosing, 106.8, kg, 03/17/24 12:53:00 EDT, Weight Dosing triamcinolone, 60 mg = 1.5 mL, Injection, IntraMuscular, Once, Stop date 03/17/24 13:11:00 EDT, Routine, Start date 03/17/24 13:11:00 EDT, 03/17/24 13:11:00 EDT Influenza Type A&B POC 13593 Rapid COVID POC 15198 3. BMI 33.0-33.9,adult (Z68.33: Body mass index [BMI] 33.0-33.9, adult) BMI education complete Ordered: azithromycin, = 1 packet(s), Oral, As Directed, as directed on package labeling, X 5 day(s), # 6 tab(s), Refills(s) 0, Pharmacy: [facility]/pharmacy #[id number], 178, cm, 03/17/24 12:53:00 EDT, Height/Length Dosing, 106.8, kg, 03/17/24 12:53:00 EDT, Weight Dosing benzonatate, 200 mg = 1 cap(s), Oral, TID, X 7 day(s), # 21 cap(s), Refills(s) 0, Pharmacy: [facility]/pharmacy #[id number], 178, cm, 03/17/24 12:53:00 EDT, Height/Length Dosing, 106.8, kg, 03/17/24 12:53:00 EDT, Weight Dosing dextromethorphan/guai fenesin/pseudoephedri ne, 1 tab(s), Oral, q4hr, 30 tab(s), Refill(s) 0, not to exceed 4 doses/day, [facility]/pharmacy #[id number], 178, cm, 03/17/24 12:53:00 EDT, Height/Length Dosing, 106.8, kg, 03/17/24 12:53:00 EDT, Weight Dosing triamcinolone, 60 mg = 1.5 mL, Injection, IntraMuscular, Once, Stop date 03/17/24 13:11:00 EDT, Routine, Start date 03/17/24 13:11:00 EDT, 03/17/24 13:11:00 EDT Influenza Type A&B POC 56526 Rapid COVID POC 45804 4. Non-smoker (Z78.9: Other specified health status) continue not smoking Ordered: azithromycin, = 1 packet(s), Oral, As Directed, as directed on package labeling, X 5 day(s), # 6 tab(s), Refills(s) 0, Pharmacy: [facility]/pharmacy #[id number], 178, cm, 03/17/24 12:53:00 EDT, Height/Length Dosing, 106.8, kg, 03/17/24 12:53:00 EDT, Weight Dosing benzonatate, 200 mg = 1 cap(s), Oral, TID, X 7 day(s), # 21 cap(s), Refills(s) 0, Pha (more content not included)... Normal [facility] Comment on above: Result Comment: Elec tronically Signed By: Ara Michelle\.br\Date and Time Signed: 03/17/24 13:35 EDT Retail - Clinical Noteon Retail - Clinical Note [id number] .00TIFF Normal [facility] Ambulatory Visit Summaryon 0 02-25-2024 Ambulatory Visit Summary DIVINEELZAGeovani Harvey :1970 Visit Date:02/25/2024 Ambulatory Visit Instructions Your Diagnosis Encounter for weight management BMI 40.0-44.9, adult Non-smoker Your Care Team Attending Physician - Ara Michelle Primary Care Physician - Ara Michelle This Is Your Medications List APAP/ASA/caffeine (Excedrin Extra Strength) acetaminophen (Tylenol) baclofen cyanocobalamin (Vitamin B-12 1000 mcg oral tablet) estradiol (estradiol 0.5 mg Tab) onabotulinumtoxinA (Botox 100 units injection) oxybutynin (oxybutynin 10 mg ER Tab) tirzepatide (Mounjaro 2.5 mg/0.5 mL subcutaneous solution) Procedures Performed 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 Discharge Vitals Heart Rate (Peripheral) 80 Respiratory Rate 18 Blood Pressure 124/86 Height 178.0 cm Height 70 in Weight 109.8 kg Weight 241.56 lb BMI 34.65 What to do next Scheduled Follow-Up Appointments Friday 10:20 AM EDT With: Ara Michelle Where: [facility] [place] [address] [place] [address]- \.br\ Medications\.br\ What How Much When Why Instructions\.br\ Unchanged acetaminophen (Tylenol) 650 Milligram By Mouth As needed for as needed for pain\.br\ Unchanged APAP/ ASA/ caffeine (Excedrin Extra Strength) 2 Tablets By Mouth Every 6 hours as needed for Headache\.br\ Unchanged baclofen 10 Milligram By Mouth 2 times a day Oral, 0 Refill(s) \.br\ Unchanged cyanocobalamin (Vitamin B-12 1000 mcg oral tablet) 1 Tablets By Mouth Every day Well woman exam Cervical cancer screening Breast cancer screening BMI 34.0-34.9,adult Non-smoker\.br\ Unchanged estradiol (estradiol 0.5 mg Tab) 1 Tablets By Mouth Every day\.br\ Unchanged onabotulinumtoxinA (Botox 100 units injection) 0 Refill(s), Injected every 3 months for spasticity as directed. \.br\ Unchanged oxybutynin (oxybutynin 10 mg ER Tab) 1 Tablets By Mouth Every day\.br\ Unchanged tirzepatide (Mounjaro 2.5 mg/ 0.5 mL subcutaneous solution) See instructions Insulin resistance INJECT 1 PEN SUBCUTANEOUSLY ONCE A WEEK FOR 4 WEEKS \.br\ Allergies\.br\ Bee Stings (Swelling)\.br\ morphine (Rash)\.br\ Problems\.br\ Ongoing - Any problem that you are currently receiving treatment for.\.br\ Advanced maternal age patient\.br\ BMI 33.0-33.9,adult\.br \ BMI 38.0-38.9,adult\.br \ Breast cancer screening\.br\ Bronchitis\.br\ Cervical cancer screening\.br\ Congestion of nasal sinus\.br\ Encounter for weight management\.br\ Enuresis\.br\ Excessive dietary caloric intake\.br\ Fibroids\.br\ History of brain tumor\.br\ History of gestational diabetes\.br\ Insulin resistance\.br\ Microhematuria\.br\ Oligohydramnios\.br \ Overactive bladder\.br\ Placental insufficiency\.br\ Postinfective 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 Please share your experience with us by completing your survey. We appreciate your feedback and thank you for choosing us for your care.\.br\ \.br\ [facility] Family Medicine Office/Clini c Noteon 02-25-2024 Family Medicine Office/Clinic Note HPI Staff Monika is a 53 year old female presenting for 1 month follow up Weight management: Started Semaglutide 01/14/24, had been on Phentermine prior started that in 07/2023 Sleeping well:Yes, 6-8 hours Chest pain:No Tremors:No Headaches:No Heart fluttering:No Blurred Vision:No Beginning weight: 241.78 Ibs Previous weight: 239.8Ibs Today's weight: 241.5Ibs Questions/Concerns: would like to discuss increasing mounjaro History of Present Illness pt presents today for weight management Review of Systems PHQ Score Initial Depression Screen Score: 0 SCORE Physical Exam Vitals & Measurements HR: 80(Peripheral) RR: 18 BP: 124/86 HT: 70 in HT: 178.0 cm WT: 109.8 kg WT: 241.56 lb BMI: 34.65 General: alert, no acute distress ENMT: oral mucosa moist, no pharyngeal erythema or exudate Cardiovascular: regular rate and rhythm, normal peripheral perfusion Respiratory: Lungs CTA, respirations non labored Extremities: no deformity, no trauma Neurological: oriented x 4, LOC appropriate for age, CN II-XII intact, motor strength equal & normal bilaterally, speech normal Assessment/Plan 1. Encounter for weight management (Z76.89: Persons encountering health services in other specified circumstances) pt presents today for weight management. she did not lose weight. requesting to increase dose. RTC 3 months 2. BMI 40.0-44.9, adult (Z68.41: Body mass index [BMI] 40.0-44.9, adult) BMi education complete 3. Non-smoker (Z78.9: Other specified health status) continue not smoking Orders: tirzepatide, 5 mg, SubCutaneous, qWeek, # 4 EA, Refills(s) 2, Pharmacy: [facility], 178, cm, 02/25/24 11:11:00 EDT, Height/Length Dosing, 109.8, kg, 02/25/24 11:11:00 EDT, Weight Dosing tirzepatide, See Instructions, INJECT 1 PEN SUBCUTANEOUSLY ONCE A WEEK FOR 4 WEEKS, # 4 EA, Refills(s) 0, Pharmacy: [facility]/pharmacy #[id number], 177, cm, 12/15/23 10:24:00 EST, Height/Length Dosing, 106.2, kg, 12/15/23 10:24:00 EST, Weight Dosing Follow-up No qualifying data available Problem List/Past Medical History Ongoing Advanced maternal age patient BMI 33.0-33.9,adult BMI 38.0-38.9,adult Breast cancer screening Bronchitis Cervical cancer screening Congestion of nasal sinus Encounter for weight management Enuresis Excessive dietary caloric intake Fibroids History of brain tumor History of gestational diabetes Insulin resistance Microhematuria Oligohydramnios Overactive bladder Placental insufficiency Postinfective urethral stricture in female UTI symptoms Well woman exam Historical Biopsy of brain tissue tumor Brain tumor Cholecystectomy CS - section Gestational diabetes Gestational diabetes mellitus, class A>2< Incontinence without sensory awareness Nocturia Nocturnal enuresis Other microscopic hematuria Stress incontinence Urge incontinence Urgency of urination Procedure/Surgical History 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 Medications baclofen, 10 mg, Oral, BID Botox 100 units injection estradiol 0.5 mg Tab, 0.5 mg= 1 tab(s), Oral, Daily Excedrin Extra Strength, 2 tab(s), Oral, q6hr, PRN Mounjaro 5 mg/0.5 mL subcutaneous solution, 5 mg, SubCutaneous, qWeek, 2 refills oxybutynin 10 mg ER Tab, 10 mg= 1 tab(s), Oral, Daily, 3 refills Tylenol, 650 mg, Oral, PRN Vitamin B-12 1000 mcg oral tablet, 1000 mcg= 1 tab(s), Oral, Daily, 5 refills Allergies Bee Stings (Swelling) morphine (Rash) Social History Alcohol - Denies Alcohol Use, 09/16/2011 Substance Abuse - Denies Substance Abuse, 09/16/2011 Tobacco - Denies Tobacco Use, 09/16/2011 Never (less than 100 in lifetime) Tobacco Use:. Never Smokeless Tobacco Use:. Household tobacco concerns: No., 02/25/2024 Family History Acute myocardial infarction: Negative: Father. Diabetes mellitus: Mother and Father. Heart disease: Father. Immunizations Vaccine Date Status Comments influenza virus vaccine, inactivated 10/08/2023 Given influenza virus vaccine, inactivated - Not Given Expectation Not Necessary error influenza virus vaccine, inactivated 09/17/2021 Recorded influenza virus vaccine, inactivated 09/05/2021 Recorded SARS-CoV-2 (COVID-19) Ad26 vaccine 08/2021 Recorded SARS-CoV-2 (COVID-19) mRNA BNT-162b2 vax 08/13/2021 Recorded 2023-07-22: TPV40 SARS-CoV-2 (COVID-19) Ad26 vaccine 07/2021 Recorded SARS-CoV-2 (COVID-19) mRNA BNT-162b2 vax 07/23/2021 Recorded 2023-07-22: TPV40 influenza virus vaccine, inactivated - Not Given Patient Refuses influenza virus vaccine, inactivated 09/21/2019 Recorded influe (more content not included)... Normal [facility] Comment on above: Result Comment: Elec tronically Signed By: Guilherme WILL, Ara Cote\.br\Date and Time Signed: 02/25/24 12:25 EDT [place] 02-18-2024 CNOV Office Visit (REHAV) MONIKA HASKINS ([id number]) 1970 F Date Time Provider Department 02/18/24 1:00 PM PATRICK BUSTAMANTE During your visit today, we recorded the following information about you: Pulse Blood pressure 102/minute 93/64 Patrick Bustamante MD 02/18/2024 6:57 AM Signed You have received botulinum toxin injections today. The skin around the site of injections should be monitored for a couple of days. If redness or swelling occur, the skin should be examined by a health healthcare corporate account director to rule out infection. If you experience pain in the muscles injected over the next few days, you can take Tylenol to control the pain (unless contra-indicated). Please call our office at [phone] with any questions or concerns. MD Dianna Sun Keith, MD 02/18/2024 1:36 PM Signed BOTULINUM TOXIN THERAPY - Informed consent was signed on 11/12/2023. Patient accompanied by: No one. Current complaints / history since last visit: most recent botulinum toxin injections on 11/12/2023. She reports that botox injections were effective with less stiffness and improved range of motion. There was better positioning. The left arm did not lock. It was easier to open the left hand. She has occasional spasms in the left arm. Oral antispasticity medciations: Baclofen 10 mg three times daily Illnesses / hospitalizations since the last visit: No Other updates: Her first grandchild is due in July 2024 Anticoagulation: No Home stretching/exercise routine: She performs stretching exercises daily PT/OT: She is in physical and occupational therapies BT therapy effective? Yes - stiffness, pain/discomfort, other and ease of care (range of motion) Duration of benefit: 10 weeks Side effects: No Spasm scale: 2=Infrequent full spasms occuring less than once per hour Pain related to the purpose of the visit: Yes LOCATION: Left arm and hip PAIN SCALE: 2 on a scale of 0-10 PAIN CHARACTER: aching and dull DURATION: (How long have you had the pain?) Several years FREQUENCY: (How often does the pain occur?) Occurs constantly Patient Entered Data PROMIS No data to display Spasticity NRS 11/12/2023 -- Spasm Scale 2=Infrequent full spasms occuring less than once per hour Spasm Scale - Trendable Number 2 Spasm Scale No data to display Global Impression of Change No data to display Nutritional status: appetite is good, weight is stable, swallowing with no problems Driving issues: No issues per patient Safety concerns regarding living situations and safety at home: No At risk for falling: Yes, frequency once a week, no injuries Examination: Strength Right Left Shoulder abduction 5 2+ Elbow flexion 5 1 Elbow extension 5 1+ Wrist extension 5 0 Hip flexion 5 3 Knee flexion 5 2 Knee extension 5 4 Plantarflexion 5 Dorsiflexion 5 Strength: She is wearing left AFO. Spasticity Right Left Shoulder 0 3 Elbow flexors 0 2 Elbow extensors 0 1+ Wrist flexors 0 0 Wrist extensors 0 1+ Finger flexors 0 3 Finger extensors 0 0 Hip adductors 0 2 Knee extensors 0. 1 Knee flexors 0 0 Plantarflexors 0 Modified Francine Scale 0 - No increase in tone 1 - Slight increase in tone (catch and release at end of ROM) 1+ - Slight increase in tone, manifested by a catch, followed by minimal resistance throughout remainder (less than half of ROM) 2 - Marked increase in tone through most of the ROM, but affected part(s) easily moved 3 - Considerable increase in tone; passive movement difficult 4 - Affected part(s) rigid in flexion or extension She is wearing left AFO Spasms observed: RUE: no right upper extremity spasms LUE: no left upper extremity spasms RLE: no right lower extremity spasms LLE: no left lower extremity spasms [facility] MS TIMED 25 FOOT WALK: Not tested. Assistance required: crutches (She uses a forearm crutch) Ambulation Index Score: 4 - Unilateral support and 25 ft <20 sec OR no support and 25 ft > 20 sec UNIVERSAL PROTOCOL / SAFETY CHECKLIST Procedure to be Performed: Botulinum Toxin Injections Sign In: A Moment of CARE was completed. Personnel directly involved with the procedure wore the appropriate PPE (Personal Protective Equipment). Special equipment: EMG Patient/Surrogate Stated/Verified: PATIENT VERIFIED(optional for EMERGENT procedures): Patient name, Date of , Relevant allergies, and The intended procedure Time Out Communication: Intended patient and procedure match the source documents. Consent documented and matches the intended procedure. Correct side/site marked and visible. Medications required for procedure verified. Sign Out: SIGN OUT (optional for EMERGENT procedures): LYN Bustamante MD The risks, benefits and alternatives of the procedure were explained. Written Consent Obtained: yes - 11/12/2023 Clinician(s) performing the inj (more content not included)... Normal [facility] Retail - Clinical Noteon Retail - Clinical Note [id number] .00TIFF Normal [facility] CNOVon 01-21-2024 CNOV Office Visit (REHAV) MONIKA HASKINS ([id number]) 1970 F Date Time Provider Department 01/21/24 9:15 AM PATRICK BUSTAMANTE During your visit today, we recorded the following information about you: Pulse Blood pressure 102/minute 116/66 Patrick Bustamante MD 01/21/2024 9:21 AM Signed Baclofen 10 mg tablets Take 1 tablet in the morning, afternoon and at bedtime. Contact the office with any questions or concerns (CoTweet or [phone]). MD Dianna Sun Keith, MD 01/21/2024 12:23 PM Signed REASON FOR VISIT: routine Patient accompanied by: No one. PRINCIPAL NEUROLOGIC DIAGNOSIS: Tumefactive variant of cerebral amyloid angiopathy HISTORY OF ILLNESS: Date of onset: 2011 Narrative Describing Problems since last visit: The patient was last seen in spasticity clinic for botulinum toxin injections on 11/12/2023. The following muscles were injected with 200 units of botox: Muscle Limb/Side Dose Guidance Comments Biceps LUE 50 units EMG 2 sites Triceps LUE 50 units EMG 2 sites FDS LUE 50 units EMG 1 sites FCR LUE 50 units EMG 1 sites She reports that botox injections were effective with less stiffness and pain with improved range of motion. She notes that there is better positioning in the left arm. Her arm is more relaxed with walking. She has occasional spasms. She takes Baclofen 10 mg twice daily. She performs stretching exercises daily and is in physical therapy twice a week. She is also swimming. Patient Entered Data PROMIS No flowsheet data found. Spasticity NRS 11/12/2023 Spasm Scale 2=Infrequent full spasms occuring less than once per hour Spasm Scale - Trendable Number 2 Spasm Scale No flowsheet data found. Global Impression of Change No flowsheet data found. Pain related to the purpose of the visit: Yes LOCATION: Left shoulder PAIN SCALE: 2 on a scale of 0-10 PAIN CHARACTER: aching and dull DURATION: (How long have you had the pain?) Several years FREQUENCY: (How often does the pain occur?) Occurs constantly Bowel function: Normal Bladder function: Neurogenic bladder, botox to bladder every 6-9 months, frequency, urgency, incontinence improved with botox injections, no recent UTIs Nutritional status: appetite is good, weight is stable, swallowing with no problems Driving issues: No issues per patient Safety concerns regarding living situations and safety at home: No At risk for falling: Yes, frequency once a week, no injuries Diagnostic Testing since last visit: No recent studies Labs reviewed: None pertinent Domestic Violence: Have you been hit, kicked, punched, or otherwise hurt by someone within the past year? No If so, by whom? Review of Systems Constitutional: Negative. Skin: Negative. HENT: Negative. Musculoskeletal: Positive for muscle weakness. Eyes: Negative. Cardiovascular: Negative. Gastrointestinal: Negative. Genitourinary: Positive for frequent urination, incontinence and urinary urgency. Hematologic/Lymphatic : Positive for bruises/bleeds easily. Allergic/Immunologic: Negative. Psychiatric: Negative. All other systems reviewed and are negative. PHYSICAL EXAMINATION: Mental Status: There were no deficits of cognition, language or prosody on interview. Formal DIGITAL ASSISTANT testing was not performed today. Cranial Nerves: Visual Acuity OU: 20/30 Corrected: No CN III, IV, Pursuit and saccadic eye movement are intact without nystagmus CN V-XII facial sensation was intact facial movements were intact hearing was intact to finger rub palatal movements were intact tongue movements were intact there was no dysarthria shoulder shrug was decreased on the left Strength Right Left Shoulder abduction 5 2+ Elbow flexion 5 1 Elbow extension 5 1+ Wrist extension 5 0 Hip flexion 5 3 Knee flexion 5 2 Knee extension 5 4 Plantarflexion 5 Dorsiflexion 5 Strength: She is wearing left AFO. Spasticity Right Left Shoulder 0 2 Elbow flexors 0 2 Elbow extensors 0 1+ Wrist flexors 0 0 Wrist extensors 0 1+ Finger flexors 0 3 Finger extensors 0 Hip adductors 0 2 Knee extensors 0. 1 Knee flexors 0 0 Plantarflexors 0 Modified Francine Scale 0 - No increase in tone 1 - Slight increase in tone (catch and release at end of ROM) 1+ - Slight increase in tone, manifested by a catch, followed by minimal resistance throughout remainder (less than half of ROM) 2 - Marked increase in tone through most of the ROM, but affected part(s) easily moved 3 - Considerable increase in tone; passive movement difficult 4 - Affected part(s) rigid in flexion or extension She is wearing left AFO Spasms observed: RUE: no right upper extremity spasms LUE: no left upper extremity spasms RLE: no right lower extremity spasms LLE: no left lower extremity spasms [facility] MS TIMED 25 FOOT WALK: Not tested. Assistance required: crutches (She uses (more content not included)... Normal [facility] Screenson 01-15-2024 Screens [id number] .00TIFF Normal [facility] Ambulatory Visit Summaryon 0 01-14-2024 Ambulatory Visit Summary MONIKA HASKINS :1970 Visit Date:01/14/2024 Ambulatory Visit Instructions Your Diagnosis Annual visit for general adult medical examination without abnormal findings Encounter for screening for other disorder Ovarian failure Overactive bladder Obesity due to excess calories BMI 34.0-34.9,adult Your Care Team Attending Physician - Ara Michelle Primary Care Physician - Ara Michelle This Is Your Medications List APAP/ASA/caffeine (Excedrin Extra Strength) acetaminophen (Tylenol) baclofen cyanocobalamin (Vitamin B-12 1000 mcg oral tablet) estradiol (estradiol 0.5 mg Tab) onabotulinumtoxinA (Botox 100 units injection) semaglutide tirzepatide (Mounjaro 2.5 mg/0.5 mL subcutaneous solution) Procedures Performed 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 Discharge Vitals Heart Rate (Peripheral) 68 Blood Pressure 118/80 Height 178 cm Height 70 in Weight 108.4 kg Weight 238.48 lb BMI 34.21 What to do next Scheduled Follow-Up Appointments Friday 10:20 AM EDT With: Ara Michelle Where: [facility] Invalid Interpretation Code [address] [place] [address]- \.br\ You Need to Complete the Following\.br\ BD Bone Density DEXA, 01/14/24, Routine, Order for Future Visit, Transport Mode: Ambulatory, Reason: Post menopausal, Ovarian failure [facility] Ambulatory Visit Summary MONIKA HASKINS :1970 Visit Date:01/14/2024 Ambulatory Visit Instructions Your Diagnosis Encounter for weight management BMI 34.0-34.9,adult Class 1 obesity due to excess calories in adult Nonsmoker Your Care Team Attending Physician - Ara Michelle Primary Care Physician - Ara Michelle This Is Your Medications List APAP/ASA/caffeine (Excedrin Extra Strength) acetaminophen (Tylenol) baclofen cyanocobalamin (Vitamin B-12 1000 mcg oral tablet) estradiol (estradiol 0.5 mg Tab) onabotulinumtoxinA (Botox 100 units injection) semaglutide tirzepatide (Mounjaro 2.5 mg/0.5 mL subcutaneous solution) Procedures Performed 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 Discharge Vitals Heart Rate (Peripheral) 68 Blood Pressure 118/80 Height 178 cm Height 70 in Weight 109 kg Weight 239.8 lb BMI 34.4 What to do next Scheduled Follow-Up Appointments Friday 10:20 AM EDT With: Ara Michelle Where: [facility] Invalid Interpretation Code [address] [place] [address]- \.br\ You Need to Complete the Following\.br\ BD Bone Density DEXA, 01/14/24, Routine, Order for Future Visit, Transport Mode: Ambulatory, Reason: Post menopausal, Ovarian failure [facility] Office/Clini c Noteon 01-14-2024 Family Medicine Office/Clinic Note Chief Complaint Subsequent Medicare Wellness Review of Systems PHQ Score Initial Depression Screen Score: 0 SCORE Physical Exam Vitals & Measurements HR: 68(Peripheral) BP: 118/80 SpO2: 96% HT: 178 cm HT: 70 in WT: 108.4 kg WT: 238.48 lb BMI: 34.21 Assessment/Plan 1. Annual visit for general adult medical examination without abnormal findings (Z00.00: Encounter for general adult medical examination without abnormal findings) The patient was given a customized and personalized print out of all the current AHRQ USPSTF?s recommendations for preventative services and all current CDC recommended immunizations, relevant risk recommendations and the following patient brochures were given. Reviewed Medicare preventative services checklist. CDC-Falls Prevention and home safety screening reviewed. Patient has had falls in last 12 months, voices some worry about falling, exhibits no problems with sitting or standing. Patient ambulates with a walker. Patient participates in PT 2 days/week. Pt voices understanding with keeping walk way area free of clutter to prevent tripping and/or falling. [place] Advance Directives reviewed, does not have, declines to receive further information. Patient denies any problems with ADL?s and Instrumental ADL?s. Cognitive screening completed with memory and clock face drawing. Immunization Record reviewed with the patient. COVID vaccines have been administered, immunization record is up to date. Allergies and medications reviewed and up to date. Patient denies concerns with taking medication as prescribed, reviewed OTC medications with patient, medication list up to date. Blood tests were reviewed: Discussed what tests need to be updated. Labs were ordered, will have completed prior to next PCP visit. Nurse visit scheduled: Will have labs completed with [facility]. Colonoscopy/ Cologuard, patient has Cologuard kit at home. Mammogram up to date. Reviewed pain symptoms with patient: patient denies pain symptoms at visit Reviewed all outside providers that patient follows. Last visit summary notes available in chart and/or have been requested. Follow up scheduled, same day appointment with PCP VANESA has been scheduled, 01/14/24 2. Encounter for screening for other disorder (Z13.89: Encounter for screening for other disorder) Medicare provides yearly screening for alcohol and depression concerns. This is completed during our Medicare Wellness visit for those who do not have a current diagnosis of depression or concerns with alcohol use. I spent a total of 17 minutes on this date of service which included preparing to see the patient, face to face patient care, completing clinical documentation, obtaining and/or reviewing separately obtained history, counseling and educating the patient with handouts. Explanations were provided with reviewing questionnaires. AUDIT risk assessment screening completed, risk score 0, with patient denying concerns with use. Completed PHQ-2 risk assessment for depression with risk score 0, negative findings. Patient has been reminded to notify the provider if there would be a change or concerns with symptoms with fear, unable to sleep, worrying too much or feeling down and/or sad with lost of interest with daily activities. Will continue to monitor with screening yearly during Medicare wellness visits. 3. Ovarian failure (E28.39: Other primary ovarian failure) Reviewed recommended bone mineral density testing for women who are 65 years of age or older. Educational handout for Bone Health reviewed and provided to the patient during today's Medicare Wellness visit. Medicare recommends testing every 5 years if results are WNL and every 2 years if results shows low bone mass. This is a deterioration of bone structure and can increase the risk of a fracture with falls. Eating a well-balanced diet with plenty of Calcium and Vitamin D will help to protect your bones. Daily weight-bearing physical activity can help build strong bones, improve bone amounts, and may reduce the risk of weakening of bones (Osteoporosis) later in life. Dexa Scan ordered, patient request [facility] to call to arrange. 4. Overactive bladder (N32.81: Overactive bladder) Patient receives Botox as needed, states effective. Patient follows with Dr. Blas. Patient states she is about due for another Botox injection and will be calling [facility] to arrange. 5. Obesity due to excess calories (E66.09: Other obesity due to excess calories) A combination of diet and exercise can help you lose the weight. Patient will be transitioning to Semaglutide from Monjauro due to insurance changes. Discussed weight loss benefits to dietary management and overall health with increased cardiovascular risks associated with waist measurement >35 inches. Pt's waist measured > 35 inches with today's visit.Reminded pt importance to work on lowering current body weight with healthy dietary intake choices with understanding of portion control. Reviewed goals and patient's (more content not included)... Normal [facility] Comment on above: Result Comment: Elec tronically Signed By: Ara Michelle\.br\Date and Time Signed: 01/14/24 13:36 EST\.br\Electronically Co-Signed By: Sergio Esteves\.br\Date and Time Co-Signed: 01/14/24 10:44 EST Family Medicine Office/Clinic Note HPI Staff Patient presents for 1 month follow up Insulin resistance and Weight loss. Couldn't get the monjaro, or any of the weight loss meds, so she got the cpompounded one semaglutide from [place] which she will start tonight but Julian told her that by time she takes her second shot will need a new rx over there to get ready Weight management Sleeping well:No, Having problems falling asleepand staying asleep, gets about 4-5 hrs a night Chest pain:No Tremors:No Headaches:Yes off and on Heart fluttering:No Blurred Vision:No Last Weight: 106.2 kg/233.64 lb Last BMI: 33.9 Today's Weight: 108.4kg/238,48lbs Today's BMI: 34.21 History of Present Illness pt presents today for weight managment Review of Systems PHQ Score Initial Depression Screen Score: 0 SCORE ROS - Provider Constitutional: no fever, no chills, no sweats, no fatigue Respiratory: no shortness of breath, no cough, no orthopnea, no wheezing. Cardiovascular: no chest pain, no palpitations, no edema. Neurologic: no headache, no dizziness, no numbness, no weakness. Physical Exam Vitals & Measurements HR: 68(Peripheral) BP: 118/80 SpO2: 96% HT: 70 in HT: 178 cm WT: 109 kg WT: 239.8 lb BMI: 34.4 General: alert, no acute distress ENMT: oral mucosa moist, no pharyngeal erythema or exudate Cardiovascular: regular rate and rhythm, normal peripheral perfusion Respiratory: Lungs CTA, respirations non labored Extremities: no deformity, no trauma Neurological: oriented x 4, LOC appropriate for age, CN II-XII intact, motor strength equal & normal bilaterally, speech normal Assessment/Plan 1. Encounter for weight management (Z76.89: Persons encountering health services in other specified circumstances) pt will start first dose of semaglutide today. will send order for next dose today. pt to return in 1 month. pt has a goal to lose another 30-50 lbs.all questions answered. RTC 4 weeks. Ordered: E&M of Est. Patient Straight Fwd 10-19 Min [id number] 2. BMI 34.0-34.9,adult (Z68.34: Body mass index [BMI] 34.0-34.9, adult) BMI education complete. pt is up 5 pounds. states she has been stress eating and has not been working out like she was. Ordered: Body Mass Index (BMI) documented 3008F Current tobacco non-user 1036F Depression Screening Negative 3352F E&M of Est. Patient Straight Fwd 10-19 Min 76814 Influenza immunization status assessed 1030F Medicare Subsequent Visit G0439 Most recent diastolic blood pressure 80-89 mm Hg 3079F Systolic BP <130 mm Hg (Most Recent) 3074F 3. Class 1 obesity due to excess calories in adult (E66.09: Other obesity due to excess calories) see above Ordered: Body Mass Index (BMI) documented 3008F Current tobacco non-user 1036F Depression Screening Negative 3352F E&M of Est. Patient Straight Fwd 10-19 Min 50524 Influenza immunization status assessed 1030F Medicare Subsequent Visit G0439 Most recent diastolic blood pressure 80-89 mm Hg 3079F Systolic BP <130 mm Hg (Most Recent) 3074F 4. Nonsmoker (Z78.9: Other specified health status) continue not smoking Ordered: Body Mass Index (BMI) documented 3008F Current tobacco non-user 1036F Depression Screening Negative 3352F E&M of Est. Patient Straight Fwd 10-19 Min 01781 Influenza immunization status assessed 1030F Most recent diastolic blood pressure 80-89 mm Hg 3079F Systolic BP <130 mm Hg (Most Recent) 3074F Orders: albuterol, 2 puff(s), Inhalation, q6hr, 8.5 gm, Refill(s) 0, [facility]/pharmacy #[id number], 177, cm, 11/25/23 14:58:00 EST, Height/Length Dosing, 106, kg, 11/25/23 14:58:00 EST, Weight Dosing liraglutide, 0.6 mg, SubCutaneous, Daily, increase dose by 0.6mg every 4 weeks. week 2:1.2mg, week 3: 1.8mg, week 4:2.4mg, week 5 (max dose) 3mg weekly., # 15 mL, Refills(s) 1, Pharmacy: [facility], 177, cm, 12/15/23 10:24:00 EST, Height/Length Dosing,... 1126F Pain severity quantified; no pain present Advance Care Planning discussed and documented 1123F Annual alcohol misuse screening, 15 min G0442 Annual Depression Screening 15 min G0444 BD Bone Density DEXA Body Mass Index (BMI) documented 3008F Cervical cancer screening results documented and reviewed 3015F Current tobacco non-user 1036F Depression Screening Negative 3352F Fall Risk Screen 2 or more w/injury 1100F Functional status assessed 1170F Influenza immunization administered or previously received 4274F Medication list documented in medical record 1159F Most recent diastolic blood pressure 80-89 mm Hg 3079F Pneumococcus immunization status assessed 1022F Review of all meds by a prescribing practitioner or clinical pharmacist documented in EHR 1160F Screening mammography documented and reviewed 3014F Systolic BP <130 mm Hg (Most Recent) 3074F Follow-up No qualifying data available Problem List/Past Medical History Ongoing Advanced maternal age patient BMI 33.0-33.9,adult BMI 38.0-38.9,adult Breast cancer screening Bronchitis Cervic (more content not included)... Normal [facility] Comment on above: Result Comment: Elec tronically Signed By: Ara Michelle\.br\Date and Time Signed: 01/14/24 11:41 EST Patient Educationon 01-14-20 Patient Education Caregiving Fall Prevention in the Home, Adult Falls can cause injuries and affect people of all ages. There are many simple things that you can do to make your home safe and to help prevent falls. Ask for help when making these changes, if needed. What actions can I take to prevent falls? General instructions ? Use good lighting in all rooms. Replace any light bulbs that burn out, turn on lights if it is dark, and use night-lights. ? Place frequently used items in [id number] places. Lower the shelves around your home if necessary. ? Set up furniture so that there are clear paths around it. Avoid moving your furniture around. ? Remove throw rugs and other tripping hazards from the floor. ? Avoid walking on wet floors. ? Fix any uneven floor surfaces. ? Add color or contrast paint or tape to grab bars and handrails in your home. Place contrasting color strips on the first and last steps of staircases. ? When you use a stepladder, make sure that it is completely opened and that the sides and supports are firmly locked. Have someone hold the ladder while you are using it. Do not climb a closed stepladder. ? Know where your pets are when moving through your home. What can I do in the bathroom? ? Keep the floor dry. Immediately clean up any water that is on the floor. ? Remove soap buildup in the tub or shower regularly. ? Use nonskid mats or decals on the floor of the tub or shower. ? Attach bath mats securely with double-sided, nonslip rug tape. ? If you need to sit down while you are in the shower, use a plastic, nonslip stool. ? Install grab bars by the toilet and in the tub and shower. Do not use towel bars as grab bars. What can I do in the bedroom? ? Make sure that a bedside light is easy to reach. ? Do not use oversized bedding that reaches the floor. ? Have a firm chair that has side arms to use for getting dressed. What can I do in the kitchen? ? Clean up any spills right away. ? If you need to reach for something above you, use a sturdy step stool that has a grab bar. ? Keep electrical cables out of the way. ? Do not use floor welsh or wax that makes floors slippery. If you must use wax, make sure that it is non-skid floor wax. What can I do with my stairs? ? Do not leave any items on the stairs. ? Make sure that you have a light switch at the top and the bottom of the stairs. Have them installed if you do not have them. ? Make sure that there are handrails on both sides of the stairs. Fix handrails that are broken or loose. Make sure that handrails are as long as the staircases. ? Install non-slip stair treads on all stairs in your home. ? Avoid having throw rugs at the top or bottom of stairs, or secure the rugs with carpet tape to prevent them from moving. ? Choose a carpet design that does not hide the edge of steps on the stairs. ? Check any carpeting to make sure that it is firmly attached to the stairs. Fix any carpet that is loose or worn. What can I do on the outside of my home? ? Use bright outdoor lighting. ? Regularly repair the edges of walkways and driveways and fix any cracks. ? Remove high doorway thresholds. ? Trim any shrubbery on the main path into your home. ? Regularly check that handrails are securely fastened and in good repair. Both sides of all steps should have handrails. ? Install guardrails along the edges of any raised decks or porches. ? Clear walkways of debris and clutter, including tools and rocks. ? Have leaves, snow, and ice cleared regularly. ? Use sand or salt on walkways during winter months. ? In the garage, clean up any spills right away, including grease or oil spills. What other actions can I take? ? Wear closed-toe shoes that fit well and support your feet. Wear shoes that have rubber soles or low heels. ? Use mobility aids as needed, such as canes, walkers, scooters, and crutches. ? Review your medicines with your health care provider. Some medicines can cause dizziness or changes in blood pressure, which increase your risk of falling. Talk with your health care provider about other ways that you can decrease your risk of falls. This may include working with a physical therapist or care trainer to improve your strength, balance, and endurance. Where to find more information ? Centers for Disease Control and Prevention, [place]: www.cdc.gov ? National [place] on Aging: www.taty.nih.gov Contact a health care provider if: ? You are afraid of falling at home. ? You feel weak, drowsy, or dizzy at home. ? You fall at home. Summary ? There are many simple things that you can do to make your home safe and to help prevent falls. ? Ways to make your home safe include removing tripping hazards and installing grab bars in the bathroom. ? Ask for help when making these changes in your home. This information is not intended to replace advice given to you by your health ca (more content not included)... [facility] Physician Orderon 01-14-2024 Physician Order [id number] .00TIFF [facility] Retail - Clinical Noteon Retail - Clinical Note [id number] .00TIFF [facility] Pre-Certification Formon Pre-Certification Form [id number] .00TIFF [facility] Ambulatory Visit Summaryon 0 12-15-2023 Ambulatory Visit Summary MONIKA HASKINS :1970 Visit Date:12/15/2023 Ambulatory Visit Instructions Your Diagnosis BMI 33.0-33.9,adult Non-smoker Your Care Team Attending Physician - Ara Michelle Primary Care Physician - Ara Michelle This Is Your Medications List albuterol (Albuterol (Eqv-ProAir HFA) 90 mcg/inh inhalation aerosol) baclofen cyanocobalamin (Vitamin B-12 1000 mcg oral tablet) estradiol (estradiol 0.5 mg Tab) onabotulinumtoxinA (Botox 100 units injection) phentermine (phentermine 37.5 mg Tab) Procedures Performed 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 Discharge Vitals Heart Rate (Peripheral) 104 Respiratory Rate 18 Blood Pressure 130/70 Height 177.0 cm Height 70 in Weight 106.2 kg Weight 233.64 lb BMI 33.9 What to do next Scheduled Follow-Up Appointments Friday 9:30 AM EST With: Where: [place] [id number] \.br\ Medications\.br\ What How Much When Why Instructions\.br\ Unchanged albuterol (Albuterol (Eqv-ProAir HFA) 90 mcg/ inh inhalation aerosol) 2 Puffs Inhalation Every 6 hours Bronchitis Congestion of nasal sinus BMI 33.0-33.9,adult\.br \ Unchanged baclofen Oral, 0 Refill(s) \.br\ Unchanged cyanocobalamin (Vitamin B-12 1000 mcg oral tablet) 1 Tablets By Mouth Every day Well woman exam Cervical cancer screening Breast cancer screening BMI 34.0-34.9,adult Non-smoker\.br\ Unchanged estradiol (estradiol 0.5 mg Tab) 1 Tablets By Mouth Every day\.br\ Unchanged onabotulinumtoxinA (Botox 100 units injection) 0 Refill(s), Injected every 3 months for spasticity as directed. \.br\ Unchanged phentermine (phentermine 37.5 mg Tab) 1 Tablets By Mouth Every day BMI 32.0-32.9,adult Non-smoker\.br\ Allergies\.br\ morphine (Rash)\.br\ Problems\.br\ Ongoing - Any problem that you are currently receiving treatment for.\.br\ Advanced maternal age patient\.br\ BMI 33.0-33.9,adult\.br \ BMI 38.0-38.9,adult\.br \ Breast cancer screening\.br\ Bronchitis\.br\ Cervical cancer screening\.br\ Congestion of nasal sinus\.br\ Encounter for weight management\.br\ Enuresis\.br\ Excessive dietary caloric intake\.br\ Fibroids\.br\ History of brain tumor\.br\ Microhematuria\.br\ Oligohydramnios\.br \ Overactive bladder\.br\ Placental insufficiency\.br\ Postinfective 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 Please share your experience with us by completing your survey. We appreciate your feedback and thank you for choosing us for your care.\.br\ \.br\ [facility] Family Medicine Office/Clini c Noteon 12-15-2023 Family Medicine Office/Clinic Note HPI Staff Vazquez is a 53 year old female presenting for 1 month follow up Weight management: Started Phentermine on 08/12/23 Sleeping well:Yes, 6-8 hours Chest pain:No Tremors:No Headaches:No Heart fluttering:No Blurred Vision:No Beginning weight: 109.9kg/ 2451.78Ibs Previous weight: 104.8kg/ 230.56Ibs Today's weight: 103.2kg/ Questions/Concerns: pt would like to discuss starting Mounjaro History of Present Illness pt presents today for weight management and to discuss mounjaro Review of Systems PHQ Score Initial Depression Screen Score: 0 SCORE ROS - Provider Constitutional: no fever, no chills, no sweats, no fatigue Respiratory: no shortness of breath, no cough, no orthopnea, no wheezing. Cardiovascular: no chest pain, no palpitations, no edema. Neurologic: no headache, no dizziness, no numbness, no weakness. Physical Exam Vitals & Measurements HR: 104(Peripheral) RR: 18 BP: 130/70 SpO2: 99% HT: 70 in HT: 177.0 cm WT: 106.2 kg WT: 233.64 lb BMI: 33.9 General: alert, no acute distress ENMT: oral mucosa moist, no pharyngeal erythema or exudate Cardiovascular: regular rate and rhythm, normal peripheral perfusion Respiratory: Lungs CTA, respirations non labored Extremities: no deformity, no trauma Neurological: oriented x 4, LOC appropriate for age, CN II-XII intact, motor strength equal & normal bilaterally, speech normal Assessment/Plan 1. Insulin resistance (E88.819: Insulin resistance, unspecified) pt was previously on mounjaro and did well. but wasn't covered by insurance. will send with Code to see if she can get it filled. continued weight loss is very important for Monika. she has limited mobility from her stroke. and losing weight has helped tremendously with her ability to be more mobile. RTC 4 weeks 2. History of gestational diabetes (Z86.32: Personal history of gestational diabetes) pt h/o GDM and strong family history of diabetes as well 3. BMI 33.0-33.9,adult (Z68.33: Body mass index [BMI] 33.0-33.9, adult) BMI education complete 4. Non-smoker (Z78.9: Other specified health status) continue not smoking Orders: tirzepatide, See Instructions, INJECT 1 PEN SUBCUTANEOUSLY ONCE A WEEK FOR 4 WEEKS, # 4 EA, Refills(s) 0, Pharmacy: [facility], 177, cm, 12/15/23 10:24:00 EST, Height/Length Dosing, 106.2, kg, 12/15/23 10:24:00 EST, Weight Dosing Follow-up No qualifying data available Problem List/Past Medical History Ongoing Advanced maternal age patient BMI 33.0-33.9,adult BMI 38.0-38.9,adult Breast cancer screening Bronchitis Cervical cancer screening Congestion of nasal sinus Encounter for weight management Enuresis Excessive dietary caloric intake Fibroids History of brain tumor History of gestational diabetes Insulin resistance Microhematuria Oligohydramnios Overactive bladder Placental insufficiency Postinfective urethral stricture in female UTI symptoms Well woman exam Historical Biopsy of brain tissue tumor Brain tumor Cholecystectomy CS - section Gestational diabetes Gestational diabetes mellitus, class A>2< Incontinence without sensory awareness Nocturia Nocturnal enuresis Other microscopic hematuria Stress incontinence Urge incontinence Urgency of urination Procedure/Surgical History 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 Medications Albuterol (Eqv-ProAir HFA) 90 mcg/inh inhalation aerosol, 2 puff(s), Inhalation, q6hr baclofen Botox 100 units injection estradiol 0.5 mg Tab, 0.5 mg= 1 tab(s), Oral, Daily Mounjaro 2.5 mg/0.5 mL subcutaneous solution, See Instructions Vitamin B-12 1000 mcg oral tablet, 1000 mcg= 1 tab(s), Oral, Daily, 5 refills Allergies morphine (Rash) Social History Alcohol - Denies Alcohol Use, 09/16/2011 Substance Abuse - Denies Substance Abuse, 09/16/2011 Tobacco - Denies Tobacco Use, 09/16/2011 Never (less than 100 in lifetime) Tobacco Use:. Never Smokeless Tobacco Use:. Ready to change: No. Household tobacco concerns: No., 12/15/2023 Family History Acute myocardial infarction: Negative: Father. Immunizations Vaccine Date Status Comments influenza virus vaccine, inactivated 10/08/2023 Given influenza virus vaccine, inactivated - Not Given Expectation Not Necessary error influenza virus vaccine, inactivated 09/17/2021 Recorded influenza virus vaccine, inactivated 09/05/2021 Recorded SARS-CoV-2 (COVID-19) Ad26 vaccine 08/2021 Recorded SARS-CoV-2 (COVID-19) mRNA BNT-162b2 vax 08/13/2021 Recorded 2023-07-22: [id number] SARS-CoV-2 (COVID-19) Ad26 vaccine 07/2021 Re (more content not included)... Normal [facility] Comment on above: Result Comment: Elec tronically Signed By: Ara Michelle\.br\Date and Time Signed: 12/15/23 11:25 EST Ambulatory Visit Summaryon 0 11-25-2023 Ambulatory Visit Summary MONIKA HASKINS :1970 Visit Date:11/25/2023 Ambulatory Visit Instructions Your Care Team Attending Physician - Ara Michelle Primary Care Physician - Ara Michelle This Is Your Medications List baclofen cyanocobalamin (Vitamin B-12 1000 mcg oral tablet) estradiol (estradiol 0.5 mg Tab) onabotulinumtoxinA (Botox 100 units injection) phentermine (phentermine 37.5 mg Tab) Procedures Performed 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 Discharge Vitals Temperature (Tympanic) 37.4 ?C Heart Rate (Peripheral) 94 Respiratory Rate 18 Blood Pressure 126/80 Height 177 cm Height 70 in Weight 106.0 kg Weight 233.2 lb BMI 33.83 What to do next Scheduled Follow-Up Appointments Friday 9:40 AM EST With: Ara Michelle Where: [facility] Medicine [place] Normal [facility] Medicine Office/Clini c Noteon 11-25-2023 [facility] Office/Clinic Note HPI Staff Monika is a 53 year old female presenting for acute visit Respiratory C/O: Onset: 5 days ago Body aches: yes Chest congestion: yes Chills: yes Cough: yes Sputum production: no dry Sore throat: no Ear complaints: no Eye itching/watering: no Fever: yes only on Friday and Friday Headache: yes Nasal congestion: yes Nasal discharge: yes Poor appetite: no Reduced activity: no Sinus pain/pressure: no Sneezing: yes Wheezing: yes Ill contacts: yes Remedies tried: Mucinex, Excedrin, NyQuil Questions/Concerns: History of Present Illness pt presents today with worsening URI symptoms, body aches Review of Systems PHQ Score Initial Depression Screen Score: 0 SCORE ROS - Provider Constitutional: no fever, no chills, no sweats, no fatigue Respiratory: no shortness of breath, yes cough, no orthopnea, no wheezing. congestion, body aches Cardiovascular: no chest pain, no palpitations, no edema. Neurologic: no headache, no dizziness, no numbness, no weakness. Physical Exam Vitals & Measurements T: 37.4 ?C(Tympanic) HR: 94(Peripheral) RR: 18 BP: 126/80 SpO2: 97% HT: 70 in HT: 177 cm WT: 106.0 kg WT: 233.2 lb BMI: 33.83 General: alert, no acute distress ENMT: oral mucosa moist, no pharyngeal erythema or exudate Cardiovascular: regular rate and rhythm, normal peripheral perfusion Respiratory: Lungs CTA, respirations non labored Extremities: no deformity, no trauma Neurological: oriented x 4, LOC appropriate for age, CN II-XII intact, motor strength equal & normal bilaterally, speech normal Assessment/Plan 1. Bronchitis (J40: Bronchitis, not specified as acute or chronic) Harsh cough, nasal congestion, sinus pressure. will send z radha and medrol dose pack. Ordered: E&M of Est. Patient Low 20-29 Min 25644 2. Congestion of nasal sinus (R09.81: Nasal congestion) see above Ordered: E&M of Est. Patient Low 20-29 Min 63425 3. BMI 33.0-33.9,adult (Z68.33: Body mass index [BMI] 33.0-33.9, adult) Ordered: E&M of Est. Patient Low 20-29 Min 36722 Orders: azithromycin, = 1 packet(s), Oral, As Directed, as directed on package labeling, X 5 day(s), # 6 tab(s), Refills(s) 0, [id number], cm, 11/25/23 14:58:00 EST, Height/Length Dosing, 106, kg, 11/25/23 14:58:00 EST, Weight Dosing methylPREDNISolone, = 1 packet(s), Oral, As Directed, as directed on package labeling, X 6 day(s), # 21 tab(s), Refills(s) 0, Pharmacy: [facility]/pharmacy #[id number], 177, cm, 11/25/23 14:58:00 EST, Height/Length Dosing, 106, kg, 11/25/23 14:58:00 EST, Weight Dosing Follow-up No qualifying data available Problem List/Past Medical History Ongoing Advanced maternal age patient BMI 33.0-33.9,adult BMI 38.0-38.9,adult Breast cancer screening Bronchitis Cervical cancer screening Congestion of nasal sinus Encounter for weight management Enuresis Excessive dietary caloric intake Fibroids History of brain tumor Microhematuria Oligohydramnios Overactive bladder Placental insufficiency Postinfective urethral stricture in female UTI symptoms Well woman exam Historical Biopsy of brain tissue tumor Brain tumor Cholecystectomy CS - section Gestational diabetes Gestational diabetes mellitus, class A>2< Incontinence without sensory awareness Nocturia Nocturnal enuresis Other microscopic hematuria Stress incontinence Urge incontinence Urgency of urination Procedure/Surgical History 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 Medications azithromycin 250 mg Tab, 1 packet(s), Oral, As Directed baclofen Botox 100 units injection estradiol 0.5 mg Tab, 0.5 mg= 1 tab(s), Oral, Daily Medrol 4 mg Tab, 1 packet(s), Oral, As Directed phentermine 37.5 mg Tab, 37.5 mg= 1 tab(s), Oral, Daily Vitamin B-12 1000 mcg oral tablet, 1000 mcg= 1 tab(s), Oral, Daily, 5 refills Allergies morphine (Rash) Social History Alcohol - Denies Alcohol Use, 09/16/2011 Substance Abuse - Denies Substance Abuse, 09/16/2011 Tobacco - Denies Tobacco Use, 09/16/2011 Never (less than 100 in lifetime) Tobacco Use:. Never Smokeless Tobacco Use:. Household tobacco concerns: No., 11/25/2023 Family History Acute myocardial infarction: Negative: Father. Immunizations Vaccine Date Status Comments influenza virus vaccine, inactivated 10/08/2023 Given influenza virus vaccine, inactivated - Not Given Expectation Not Necessary error influenza virus vaccine, inactivated 09/17/2021 Recorded influenza virus vaccine, inactivated 09/05/2021 Recorded SARS-CoV-2 (COVID-19) Ad26 vaccine (more content not included)... Normal [facility] Comment on above: Result Comment: Elec tronically Signed By: Ara Michelle\.br\Date and Time Signed: 11/25/23 15:19 EST Ambulatory Visit Summaryon 1 01-13-2023 Ambulatory Visit Summary MONIKA HASKINS :1970 Visit Date:11/12/2023 Ambulatory Visit Instructions Your Diagnosis Encounter for weight management BMI 33.0-33.9,adult Non-smoker Your Care Team Attending Physician - Ara Michelle Primary Care Physician - Ara Michelle This Is Your Medications List baclofen cyanocobalamin (Vitamin B-12 1000 mcg oral tablet) estradiol (estradiol 0.5 mg Tab) onabotulinumtoxinA (Botox 100 units injection) phentermine (phentermine 37.5 mg Tab) Procedures Performed 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 Discharge Vitals Heart Rate (Peripheral) 98 Respiratory Rate 18 Blood Pressure 118/76 Height 177 cm Height 70 in Weight 103.60 kg Weight 227.92 lb BMI 33.07 What to do next Scheduled Follow-Up Appointments Friday 9:40 AM EST With: Ara Michelle Where: [facility] Ambulatory Visit Summary MONIKA HASKINS :1970 Visit Date:11/12/2023 Ambulatory Visit Instructions Your Diagnosis BMI 33.0-33.9,adult Non-smoker BMI 32.0-32.9,adult Your Care Team Attending Physician - Ara Michelle Primary Care Physician - Ara Michelle This Is Your Medications List baclofen cyanocobalamin (Vitamin B-12 1000 mcg oral tablet) estradiol (estradiol 0.5 mg Tab) onabotulinumtoxinA (Botox 100 units injection) phentermine (phentermine 37.5 mg Tab) Procedures Performed 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 Discharge Vitals Heart Rate (Peripheral) 98 Respiratory Rate 18 Blood Pressure 118/76 Height 177 cm Height 70 in Weight 103.60 kg Weight 227.92 lb BMI 33.07 What to do next Scheduled Follow-Up Appointments Friday 9:40 AM EST With: Ara Michelle Where: [facility] Family Medicine Office/Clini c Noteon 11-12-2023 Family Medicine Office/Clinic Note HPI Staff Monika is a 53 year old female presenting for 1 month follow up Weight management: Started Phentermine on 08/12/23 Sleeping well:Yes, 6-8 hours Chest pain:No Tremors:No Headaches:No Heart fluttering:No Blurred Vision:No Beginning weight: 109.9Kg/ 241.78Ibs Previous weight: 104.8kg/ 230.56Ibs Today's weight: 103.6kg/ 227.9Ibs Questions/Concerns: none History of Present Illness pt presents today for weight management Review of Systems PHQ Score Initial Depression Screen Score: 0 SCORE ROS - Provider Constitutional: no fever, no chills, no sweats, no fatigue Respiratory: no shortness of breath, no cough, no orthopnea, no wheezing. Cardiovascular: no chest pain, no palpitations, no edema. Neurologic: no headache, no dizziness, no numbness, no weakness. Physical Exam Vitals & Measurements HR: 98(Peripheral) RR: 18 BP: 118/76 SpO2: 98% HT: 70 in HT: 177 cm WT: 103.60 kg WT: 227.92 lb BMI: 33.07 General: alert, no acute distress ENMT: oral mucosa moist, no pharyngeal erythema or exudate Cardiovascular: regular rate and rhythm, normal peripheral perfusion Respiratory: Lungs CTA, respirations non labored Extremities: no deformity, no trauma Neurological: oriented x 4, LOC appropriate for age, CN II-XII intact, motor strength equal & normal bilaterally, speech normal Assessment/Plan 1. Encounter for weight management (Z76.89: Persons encountering health services in other specified circumstances) total weight loss is 14 pounds. pt is doing well. denies needs. would like to possibly go back to [facility] in November. will discuss at next visit. RTC 4 weeks 2. BMI 33.0-33.9,adult (Z68.33: Body mass index [BMI] 33.0-33.9, adult) BMI education complete 3. Non-smoker (Z78.9: Other specified health status) continue not smoking Ordered: phentermine, 37.5 mg = 1 tab(s), Oral, Daily, # 30 tab(s), Refills(s) 0, Pharmacy: [facility], 177, cm, 11/12/23 9:58:00 EST, Height/Length Dosing, 103.6, kg, 11/12/23 9:58:00 EST, Weight Dosing phentermine, 37.5 mg = 1 tab(s), Oral, Daily, # 30 tab(s), Refills(s) 0, Pharmacy: [id number], 177, cm, 09/09/23 11:33:00 EDT, Height/Length Dosing, 105.2, kg, 09/09/23 11:33:00 EDT, Weight Dosing Follow-up No qualifying data available Problem List/Past Medical History Ongoing Advanced maternal age patient BMI 38.0-38.9,adult Breast cancer screening Cervical cancer screening Encounter for weight management Enuresis Excessive dietary caloric intake Fibroids History of brain tumor Microhematuria Oligohydramnios Overactive bladder Placental insufficiency Postinfective urethral stricture in female UTI symptoms Well woman exam Historical Biopsy of brain tissue tumor Brain tumor Cholecystectomy CS - section Gestational diabetes Gestational diabetes mellitus, class A>2< Incontinence without sensory awareness Nocturia Nocturnal enuresis Other microscopic hematuria Stress incontinence Urge incontinence Urgency of urination Procedure/Surgical History 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 Medications baclofen Botox 100 units injection estradiol 0.5 mg Tab, 0.5 mg= 1 tab(s), Oral, Daily phentermine 37.5 mg Tab, 37.5 mg= 1 tab(s), Oral, Daily Vitamin B-12 1000 mcg oral tablet, 1000 mcg= 1 tab(s), Oral, Daily, 5 refills Allergies morphine (Rash) Social History Alcohol - Denies Alcohol Use, 09/16/2011 Substance Abuse - Denies Substance Abuse, 09/16/2011 Tobacco - Denies Tobacco Use, 09/16/2011 Never (less than 100 in lifetime) Tobacco Use:. Never Smokeless Tobacco Use:. Household tobacco concerns: No., 11/12/2023 Family History Acute myocardial infarction: Negative: Father. Immunizations Vaccine Date Status Comments influenza virus vaccine, inactivated 10/08/2023 Given influenza virus vaccine, inactivated - Not Given Expectation Not Necessary error influenza virus vaccine, inactivated 09/17/2021 Recorded influenza virus vaccine, inactivated 09/05/2021 Recorded SARS-CoV-2 (COVID-19) Ad26 vaccine 08/2021 Recorded SARS-CoV-2 (COVID-19) mRNA BNT-162b2 vax 08/13/2021 Recorded 2023-07-22: TPV40 SARS-CoV-2 (COVID-19) Ad26 vaccine 07/2021 Recorded SARS-CoV-2 (COVID-19) mRNA BNT-162b2 vax 07/23/2021 Recorded 2023-07-22: TPV40 influenza virus vaccine, inactivated - Not Given Patient Refuses influenza virus vaccine, inactivated 09/21/2019 Recorded influenza virus vaccine, inactivated 09/19/2014 Recorded diphtheria/pertussis, acel/tetanus adult 09/16/2011 Given measles/mumps (more content not included)... Normal [facility] Comment on above: Result Comment: Elec tronically Signed By: Ara Michelle\.br\Date and Time Signed: 11/12/23 12:55 EST Ambulatory Visit Summaryon 1 12-08-2022 Ambulatory Visit Summary MONIKA HASKINS Wes :1970 Visit Date:10/08/2023 Ambulatory Visit Instructions Your Diagnosis Encounter for weight management BMI 32.0-32.9,adult Encounter for immunization Non-smoker Your Care Team Attending Physician - Ara Michelle Primary Care Physician - Ara Michelle This Is Your Medications List baclofen cyanocobalamin (Vitamin B-12 1000 mcg oral tablet) estradiol (estradiol 0.5 mg Tab) onabotulinumtoxinA (Botox 100 units injection) phentermine (phentermine 37.5 mg Tab) Procedures Performed 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 What to do next Scheduled Follow-Up Appointments Friday 10:20 AM EST With: Ara Michelle [facility] Consent for Flu Vaccineon Consent for Flu Vaccine [id number]. [id number] [facility] Office/Clini c Noteon 10-08-2023 [facility] Medicine Office/Clinic Note HPI Staff Monika is a 53 year old female presenting for 1 month follow up Weight management: Started Phentermine on Sleeping well:Yes, 6-8 hours Chest pain:No Tremors:No Headaches:No Heart fluttering:No Blurred Vision:No Would like flu shot today. Beginning weight: 109.9kg/241.78Ibs Previous weight: 105.15Ibs/231.22 Today's weight:104.8/231 Questions/Concerns: Pt was sick, for about 2 weeks, said she was unable to work out. History of Present Illness pt presents today for weight management Review of Systems PHQ Score Initial Depression Screen Score: 0 SCORE ROS - Provider Constitutional: no fever, no chills, no sweats, no fatigue Respiratory: no shortness of breath, no cough, no orthopnea, no wheezing. Cardiovascular: no chest pain, no palpitations, no edema. Neurologic: no headache, no dizziness, no numbness, no weakness. Physical Exam Vitals & Measurements HR: 94(Peripheral) RR: 16 BP: 128/84 SpO2: 97% HT: 70 in HT: 177 cm WT: 104.8 kg WT: 230.56 lb BMI: 33.45 General: alert, no acute distress ENMT: oral mucosa moist, no pharyngeal erythema or exudate Cardiovascular: regular rate and rhythm, normal peripheral perfusion Respiratory: Lungs CTA, respirations non labored Extremities: no deformity, no trauma Neurological: oriented x 4, LOC appropriate for age, CN II-XII intact, motor strength equal & normal bilaterally, speech normal Assessment/Plan 1. Encounter for weight management (Z76.89: Persons encountering health services in other specified circumstances) pt presents today for weight management. pt remained the same this month. pt states she was really sick the last couple of weeks. she was not getting any exercise in. she will get back to exercising now that she is feeling better. all questions answered. RTC 4 weeks BMI 32.0-32.9,adult (Z68.32: Body mass index [BMI] 32.0-32.9, adult) BMI education complete Ordered: phentermine, 37.5 mg = 1 tab(s), Oral, Daily, # 30 tab(s), Refills(s) 0, Pharmacy: [facility], 177, cm, 09/09/23 11:33:00 EDT, Height/Length Dosing, 105.2, kg, 09/09/23 11:33:00 EDT, Weight Dosing phentermine, 37.5 mg = 1 tab(s), Oral, Daily, # 30 tab(s), Refills(s) 0, Pharmacy: [facility], 177, cm, 09/09/23 11:33:00 EDT, Height/Length Dosing, 105.2, kg, 09/09/23 11:33:00 EDT, Weight Dosing Encounter for immunization (Z23: Encounter for immunization) flu vaccine given Ordered: Admin flu virus vaccine G0008 Non-smoker (Z78.9: Other specified health status) continue not smoking Ordered: phentermine, 37.5 mg = 1 tab(s), Oral, Daily, # 30 tab(s), Refills(s) 0, Pharmacy: [facility], 177, cm, 09/09/23 11:33:00 EDT, Height/Length Dosing, 105.2, kg, 09/09/23 11:33:00 EDT, Weight Dosing phentermine, 37.5 mg = 1 tab(s), Oral, Daily, # 30 tab(s), Refills(s) 0, Pharmacy: [facility], 177, cm, 09/09/23 11:33:00 EDT, Height/Length Dosing, 105.2, kg, 10/17/23 11:33:00 EDT, Weight Dosing Orders: influenza virus vaccine, inactivated, 0.5 mL, Susp-Inj, IntraMuscular, Once, Stop date 10/08/23 12:00:00 EST, Routine, Start date 10/08/23 12:00:00 EST influenza virus vaccine, inactivated, 0.5 mL, Injection, IntraMuscular, Once, Stop date 10/08/23 12:00:00 EST, Routine, Start date 10/08/23 12:00:00 EST Follow-up No qualifying data available Problem List/Past Medical History Ongoing Advanced maternal age patient BMI 38.0-38.9,adult Breast cancer screening Cervical cancer screening Encounter for weight management Enuresis Excessive dietary caloric intake Fibroids History of brain tumor Microhematuria Oligohydramnios Overactive bladder Placental insufficiency Postinfective urethral stricture in female UTI symptoms Well woman exam Historical Biopsy of brain tissue tumor Brain tumor Cholecystectomy CS - section Gestational diabetes Gestational diabetes mellitus, class A>2< Incontinence without sensory awareness Nocturia Nocturnal enuresis Other microscopic hematuria Stress incontinence Urge incontinence Urgency of urination Procedure/Surgical History 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 Medications baclofen Botox 100 units injection estradiol 0.5 mg Tab, 0.5 mg= 1 tab(s), Oral, Daily phentermine 37.5 mg Tab, 37.5 mg= 1 tab(s), Oral, Daily Vitamin B-12 1000 mcg oral tablet, 1000 mcg= 1 tab(s), Oral, Daily, 5 refills Allergies morphine (Rash) Social History Alcohol - Denies Alcohol Use, 09/16/2011 Substance Abuse - Denies Substance Abuse, 09/16/2011 Tob (more content not included)... Normal [facility] Comment on above: Result Comment: Elec tronically Signed By: Guilherme WILL, Ara Cote\.br\Date and Time Signed: 10/08/23 11:36 EST Pre-Visit Planningon 023 Pre-Visit Planning - From: Miriam Parker RN To: Ara Michelle; Sent: 09/05/2023 14:30:15 EDT Subject: Pre-Visit Planning Due Date/Time: 09/05/2023 14:30:00 EDT Caller Name: MONIKA HASKINS; Caller Number: Kendra , Kristin Ciro Bullock, *Based on your response below, can you please update the chronic problem list and address during this visit if appropriate?* During a pre-visit planning chart review, I noted the following documentation in the medical record: Problem list: Brain tumor 07/02/2013 outpatient PT examination-He performed a brain biopsy Nov 2012. Since her brain biopsy she has been taking 10 chemotherapy pills every friday. ? He performed a brain biopsy Nov 2012. Since her brain biopsy she has been taking 10 chemotherapy pills every friday. 08/10/2016 ed note-She had a recent scan for her brain tumor and everything was fine. ? CS - section ([id number]): Resolved. Biopsy of brain tissue tumor ([id number]): Resolved. ? Brain tumor (239.6): Resolved.. Surgical history: Surgical history Gallbladder operation ([id number]). Based on your medical judgment, can you further clarify if the patient currently has brain tumor? -Brain tumor -History of brain tumor -Other I can update the problem list with your specified response if you would like. In responding to this request, please exercise your independent professional judgment. The fact that a question is asked does not imply that any particular answer is desired or expected. If you have any questions, please feel free to contact me at extension [phone]. Thank you! GAIL Rubio, RN, CCM, CCDS, CCDS-O From: Ara Michelle To: Miriam Parker RN; Sent: 10/01/2023 16:59:29 EST Subject: RE: Pre-Visit Planning Caller Name: MONIKA HASKINS; Caller Number: Kendra , M History of brain tumor Normal [address] [facility] Ambulatory Visit Summaryon 1 Ambulatory Visit Summary MONIKA HASKINS :1970 Visit Date:09/09/2023 Ambulatory Visit Instructions Your Diagnosis BMI 33.0-33.9,adult Non-smoker BMI 32.0-32.9,adult Your Care Team Attending Physician - Ara Michelle Primary Care Physician - Ara Michelle This Is Your Medications List cyanocobalamin (Vitamin B-12 1000 mcg oral tablet) estradiol (estradiol 0.5 mg Tab) phentermine (phentermine 37.5 mg Tab) Procedures Performed 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 Discharge Vitals Heart Rate (Peripheral) 76 Respiratory Rate 18 Blood Pressure 122/86 Height 177.0 cm Height 70 in Weight 105.15 kg Weight 231.33 lb BMI 33.56 What to do next Scheduled Follow-Up Appointments Friday 11:00 AM EST With: Ara Michelle Where: [facility] [place] Normal [facility] Family Medicine Office/Clini c Noteon 09-09-2023 Family Medicine Office/Clinic Note HPI Staff Monika is a 53 year old female presenting for 1 month follow up Weight management: Started Phentermine on 08/12/2023 Sleeping well:Yes, 6-8 hours Chest pain:No Tremors:No Headaches:No Heart fluttering:No Blurred Vision:No Beginning weight: 109.9kg/241.78Ibs Previous weight: same as above Today's weight: 105.15Ibs/231.22Ibs Questions/Concerns: no concerns at this time History of Present Illness pt presents today for weight management. Review of Systems PHQ Score Initial Depression Screen Score: 0 ROS - Provider Constitutional: no fever, no chills, no sweats, no fatigue Respiratory: no shortness of breath, no cough, no orthopnea, no wheezing. Cardiovascular: no chest pain, no palpitations, no edema. Neurologic: no headache, no dizziness, no numbness, no weakness. Physical Exam Vitals & Measurements HR: 76(Peripheral) RR: 18 BP: 122/86 SpO2: 98% HT: 70 in HT: 177.0 cm WT: 105.15 kg WT: 231.33 lb BMI: 33.56 General: alert, no acute distress ENMT: oral mucosa moist, no pharyngeal erythema or exudate Cardiovascular: regular rate and rhythm, normal peripheral perfusion Respiratory: Lungs CTA, respirations non labored Extremities: no deformity, no trauma Neurological: oriented x 4, LOC appropriate for age, CN II-XII intact, motor strength equal & normal bilaterally, speech normal Assessment/Plan 1. Encounter for weight management (Z76.89: Persons encountering health services in other specified circumstances) pt presents today for weight management. total weight loss is 10 pounds. pt is doing well. denies side effects. all questions answered. RTC 4 weeks 2. BMI 33.0-33.9,adult (Z68.33: Body mass index [BMI] 33.0-33.9, adult) BMI education complete 3. Non-smoker (Z78.9: Other specified health status) continue not smoking Ordered: phentermine, 37.5 mg = 1 tab(s), Oral, Daily, # 30 tab(s), Refills(s) 0, Pharmacy: [facility], 177, cm, 09/09/23 11:33:00 EDT, Height/Length Dosing, 105.2, kg, 09/09/23 11:33:00 EDT, Weight Dosing phentermine, 37.5 mg = 1 tab(s), Oral, Daily, # 30 tab(s), Refills(s) 0, Pharmacy: [facility], 177, cm, 08/12/23 11:53:00 EDT, Height/Length Dosing, 109.9, kg, 08/12/23 11:53:00 EDT, Weight Dosing Follow-up No qualifying data available Problem List/Past Medical History Ongoing Advanced maternal age patient BMI 38.0-38.9,adult Brain tumor Breast cancer screening Cervical cancer screening Encounter for weight management Enuresis Excessive dietary caloric intake Fibroids Microhematuria Oligohydramnios Overactive bladder Placental insufficiency Postinfective urethral stricture in female UTI symptoms Well woman exam Historical Biopsy of brain tissue tumor Brain tumor Cholecystectomy CS - section Gestational diabetes Gestational diabetes mellitus, class A>2< Incontinence without sensory awareness Nocturia Nocturnal enuresis Other microscopic hematuria Stress incontinence Urge incontinence Urgency of urination Procedure/Surgical History 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 Medications estradiol 0.5 mg Tab, 0.5 mg= 1 tab(s), Oral, Daily phentermine 37.5 mg Tab, 37.5 mg= 1 tab(s), Oral, Daily Vitamin B-12 1000 mcg oral tablet, 1000 mcg= 1 tab(s), Oral, Daily, 5 refills Allergies morphine (Rash) Social History Alcohol - Denies Alcohol Use, 09/16/2011 Substance Abuse - Denies Substance Abuse, 09/16/2011 Tobacco - Denies Tobacco Use, 09/16/2011 Never (less than 100 in lifetime) Tobacco Use:. Never Smokeless Tobacco Use:. Household tobacco concerns: No., 09/09/2023 Family History Acute myocardial infarction: Negative: Father. Immunizations Vaccine Date Status Comments influenza virus vaccine, inactivated 09/17/2021 Recorded influenza virus vaccine, inactivated 09/05/2021 Recorded SARS-CoV-2 (COVID-19) Ad26 vaccine 08/2021 Recorded SARS-CoV-2 (COVID-19) mRNA BNT-162b2 vax 08/13/2021 Recorded 2023-07-22: TPV40 SARS-CoV-2 (COVID-19) Ad26 vaccine 07/2021 Recorded SARS-CoV-2 (COVID-19) mRNA BNT-162b2 vax 07/23/2021 Recorded 2023-07-22: TPV40 influenza virus vaccine, inactivated - Not Given Patient Refuses influenza virus vaccine, inactivated 09/21/2019 Recorded influenza virus vaccine, inactivated 09/19/2014 Recorded diphtheria/pertussis, acel/tetanus adult 09/16/2011 Given measles/mumps/rubella virus vaccine - Not Given Other (see comment) not indicated diphtheria/pertussis, acel/tetanus adult - Not Given Other (see comment) will give at d/c if pt requests to [place] (more content not included)... Normal [facility] Comment on above: Result Comment: Elec tronically Signed By: Ara Michelle\.br\Date and Time Signed: 09/09/23 12:29 EDT CHEMISTRYOrdered By: SYSTEM SYSTEM on 06-24-2023 Albumin [Mass/Vol] 4.5 g/dL Normal 3.3 - 5.0 gm/dL [facility] Albumin/Globulin [Mass ratio] 1.2 {ratio} Normal 1.1 - 2.2 [facility] ALP [Catalytic activity/Vol] 53 [iU]/d Normal 21 - 98 Int._Unit/L [facility] ALT No additional P-5'-P [Catalytic activity/Vol] 13 [iU]/d Normal 6 - 46 Int._Unit/L [facility] Anion gap [Moles/Vol] 14 mmol/L Normal 6 - 16 mEq/L [facility] AST [Catalytic activity/Vol] 21 [iU]/d Normal 5 - 43 Int._Unit/L [facility] Bilirubin [Mass/Vol] 0.4 mg/dL Normal 0.0 - 1.1 mg/dL [facility] Calcium [Mass/Vol] 9.7 mg/dL Normal 8.9 - 11.1 mg/dL [facility] Chloride [Moles/Vol] 106 mmol/L Normal 101 - 111 mmol/L [facility] Cholesterol [Mass/Vol] 196 mg/dL Normal 120 - 200 mg/dL [facility] Cholesterol in HDL [Mass/Vol] 55 mg/dL Invalid Interpretation Code [facility] Cholesterol in LDL [Mass/Vol] 124 mg/dL Normal <=129mg/dL [facility] Cholesterol in VLDL [Mass/Vol] 17 mg/dL Normal 7 - 40 mg/dL [facility] CO2 [Moles/Vol] 24 mmol/L Normal 21 - 31 mmol/L [facility] Creatinine [Mass/Vol] 0.7 mg/dL Normal 0.5 - 1.3 mg/dL [facility] GFR/1.73 sq M.predicted among non-blacks MDRD (S/P/Bld) [Vol rate/Area] 105 mL/min/1.73 m2 Normal >=59mL/min/1.73 m2 [facility] Chem S Globulin (S) [Mass/Vol] 3.7 g/dL Normal 1.4 - 4.0 gm/dL [facility] Glucose [Mass/Vol] 83 mg/dL Normal 55 - 199 mg/dL [facility] Potassium [Moles/Vol] 3.9 mmol/L Normal 3.5 - 5.3 mmol/L [facility] Protein [Mass/Vol] 8.2 g/dL High 6.0 - 7.8 gm/dL [facility] Sodium [Moles/Vol] 140 mmol/L Normal 135 - 145 mmol/L [facility] Triglyceride [Mass/Vol] 87 mg/dL Normal <=149mg/dL [facility] TSH Qn 1.33 m[IU]/L Normal 0.34 - 5.60 mcIU/mL [facility] C Remisol Urea nitrogen [Mass/Vol] 17 mg/dL Normal 5 - 21 mg/dL [facility] Urea nitrogen/Creatinine [Mass ratio] 24 mg/mg High 10 - 20 [facility] CHEMISTRYOrdered By: Maria M Jennings on 06-24-2023 HbA1c (Bld) [Mass fraction] 5.4 % Normal <=5.9% [facility] HEMATOLOGYOrdered By: SYSTEM SYSTEM on 06-24-2023 Basophils/100 WBC (Bld) 0.9 % Normal 0.0 - 2.0 % [facility] Basophils/Leukocyte s Auto (Bld) [Pure # fraction] 0.1 E9/L Normal 0.0 - 0.2 E9/L [facility] Eosinophils/100 WBC (Bld) 2.3 % Normal 0.0 - 8.0 % [facility]eAuto[facility] Eosinophils/Leukocy chelsie Auto (Bld) [Pure # fraction] 0.2 E9/L Normal 0.0 - 0.5 E9/L [facility] Lymphocytes/100 WBC (Bld) 26.2 % Normal 14.0 - 50.0 % [facility]eAutoSS Lymphocytes/Leukocy chelsie Auto (Bld) [Pure # fraction] 2.0 E9/L Normal 1.0 - 4.0 E9/L [facility]eAuto[facility] Monocytes/100 WBC (Bld) 6.8 % Normal 4.0 - 14.0 % [facility]eAutoSS Monocytes/Leukocyte s Auto (Bld) [Pure # fraction] 0.5 E9/L Normal 0.2 - 1.0 E9/L [facility] Neutrophils/100 WBC (Bld) 63.8 % Normal 36.0 - 75.0 % [facility]eAutoSS Neutrophils/Leukocy [place]ie Auto (Bld) [Pure # fraction] 4.9 E9/L Normal 2.0 - 7.5 E9/L [facility] HEMATOLOGYOrdered By: Francisco Mas on 06-24-2023 Erythrocyte distribution width (RBC) [Ratio] 13.3 % Normal 10.9 - 14.2 % [facility] Hematocrit (Bld) [Volume fraction] 45.4 % Normal 34.0 - 46.0 % [facility] Hemoglobin (Bld) [Mass/Vol] 15.0 g/dL Normal 12.0 - 16.0 gm/dL [facility] MCH (RBC) [Entitic mass] 28.7 pg Normal 27.0 - 34.0 pg [facility] MCHC (RBC) [Mass/Vol] 33.1 g/dL Normal 31.4 - 36.0 gm/dL [facility] MCV (RBC) [Entitic vol] 86.6 fL Normal 80.0 - 100.0 fL [facility] Platelet mean volume (Bld) [Entitic vol] 11.4 fL High 6.4 - 10.8 fL [facility] Platelets (Bld) [#/Vol] 276.0 E9/L Normal 150.0 - 500.0 E9/L [facility] HemeAutoSS RBC (Bld) [#/Vol] 5.2 E12/L Normal 4.3 - 5.9 E12/L [facility] HemeAutoSS WBC corrected for nucl RBC Auto (Bld) [#/Vol] 7.7 E9/L Normal 4.0 - 11.0 E9/L [facility] HemeAutoSS CBC W Auto Differential pane l (Bld)on 12-16-2022 Basophils (Bld) [#/Vol] 0.03 10*3/uL <0.11 k/uL [facility] Basophils/100 WBC (Bld) 0.4 % [facility] Differential cell count method Nom (Bld) Auto [facility] Eosinophils (Bld) [#/Vol] 0.10 10*3/uL <0.46 k/uL [facility] Eosinophils/100 WBC (Bld) 1.4 % [facility] Erythrocyte distribution width (RBC) [Ratio] 12.6 % 11.5 - 15.0 % [facility] Hematocrit (Bld) [Volume fraction] 45.0 % 36.0 - 46.0 % [facility] Hemoglobin (Bld) [Mass/Vol] 14.9 g/dL 11.5 - 15.5 g/dL [facility] Immature granulocytes (Bld) [#/Vol] <0.10 k/uL [facility] Immature granulocytes/100 WBC (Bld) 0.3 % [facility] Lymphocytes (Bld) [#/Vol] 2.01 10*3/uL 1.00 - 4.00 k/uL [facility] Lymphocytes/100 WBC (Bld) 27.8 % [facility] MCH (RBC) [Entitic mass] 28.3 pg 26.0 - 34.0 pg [facility] MCHC (RBC) [Mass/Vol] 33.1 g/dL 30.5 - 36.0 g/dL [facility] MCV (RBC) [Entitic vol] 85.4 fL 80.0 - 100.0 fL [facility] Monocytes (Bld) [#/Vol] 0.53 10*3/uL <0.87 k/uL [facility] Monocytes/100 WBC (Bld) 7.3 % [facility] Neutrophils (Bld) [#/Vol] 4.55 10*3/uL 1.45 - 7.50 k/uL [facility] Neutrophils/100 WBC (Bld) 62.8 % [facility] Nucleated RBC (Bld) [#/Vol] <0.01 k/uL [facility] Nucleated RBC/100 WBC (Bld) [Ratio] 0.0 /100 WBC [facility] Platelet mean volume (Bld) [Entitic vol] 12.7 fL 9.0 - 12.7 fL [facility] Platelets (Bld) [#/Vol] 241 10*3/uL 150 - 400 k/uL [facility] RBC (Bld) [#/Vol] 5.27 10*6/uL High 3.90 - 5.20 m/uL [facility] WBC (Bld) [#/Vol] 7.24 10*3/uL 3.70 - 11.00 k/u L [facility] MRI BRAIN WO/W IVCONon 12-16 [facility] XR HAND LT MIN 3Von 12-16-19 XR HAND LT MIN 3V Patient: MONIKA HASKINS Exam Date: 12/16/2019 : 1970 Gender:F Ordering : TEREZA LITTLEJOHN Admission #: [id number] Family : DR NICOLA JOHNSON D.O. Order #: [id number] CLICK HERE TO VIEW EXAM RADIOLOGY REPORT PROCEDURE: RADIOGRAPH HAND LEFT MIN 3 VIEWS COMPARISON: XR HAND LT MIN 3V, 07/24/2017. INDICATIONS: Acute left second metacarpal-phalangeal joint pain after multiple falls FINDINGS: BONES: Transverse fracture through the neck of the 2nd metacarpal with anterior displacement of the head of the metacarpal approximately 1/2 of the bone width. Intact 2nd metacarpophalangeal joint without evidence of intra-articular extension. SOFT TISSUES: No visible soft tissue swelling or radiopaque foreign body. OTHER: Negative. CONCLUSION: 1. Limited examination of the hand due to severe contracture. 2. Acute, displaced fracture involving the neck of the 2nd metacarpal. Dictated by: Yamileth Longo M.D. on 12/16/2019 at 12:07 Approved by: Yamileth Longo M.D. on 12/16/2019 at 12:10 Normal [facility] Vital Signs Date Time Vital Sign Value Performing Clinician Facility 12-22-2024 15:28-0500 Body mass index (BMI) [Ratio] 29.29 kg/m2 Kelley LITTLEJOHN Work Phone: [facility] 12-22-2024 15:28-0500 Body weight 100.7 kg Kelley LITTLEJOHN Work Phone: [facility] 12-22-2024 15:28-0500 Diastolic blood pressure 76 mm[Hg] Kelley LITTLEJOHN Work Phone: [facility] 12-22-2024 15:28-0500 Systolic blood pressure 128 mm[Hg] Kelley LITTLEJOHN Work Phone: [facility] 12-15-2024 13:08-0500 Diastolic blood pressure 79 mm[Hg] Patrick Bustamante MD Work Phone: [facility] 12-15-2024 13:08-0500 Heart rate 90 /min Patrick Bustamante MD Work Phone: [facility] 12-15-2024 13:08-0500 Systolic blood pressure 122 mm[Hg] Patrick Bustamante MD Work Phone: [facility] 2024 11:30-0400 Diastolic blood pressure 83 mm[Hg] Patrick Bustamante MD Work Phone: [facility] 2024 11:30-0400 Heart rate 103 /min Patrick Bustamante MD Work Phone: [facility] 2024 11:30-0400 Systolic blood pressure 130 mm[Hg] Patrick Bustamante MD [facility] [facility] 05-26-2024 12:57-0400 Diastolic blood pressure 80 mm[Hg] Patrick Bustamante MD Work Phone: [facility] 05-26-2024 12:57-0400 Heart rate 93 /min Patrick Bustamante MD Work Phone: [facility] 05-26-2024 12:57-0400 Systolic blood pressure 124 mm[Hg] Patrick Bustamante MD Work Phone: [facility] 04-16-2024 16:08-0400 Body height 180.3 cm Mio Rogers MD Work Phone: [facility] 04-16-2024 16:08-0400 Body mass index (BMI) [Ratio] 32.96 kg/m2 Mio Rogers MD Work Phone: [facility] 04-16-2024 16:08-0400 Body temperature 98.71 [degF] Mio Rogers MD Work Phone: [facility] 04-16-2024 16:08-0400 Body weight 107.2 kg Mio Rogers MD Work Phone: [facility] 04-16-2024 16:08-0400 Diastolic blood pressure 69 mm[Hg] Mio Rogers MD Work Phone: [facility] 04-16-2024 16:08-0400 Heart rate 106 /min Mio Rogers MD Work Phone: [facility] 04-16-2024 16:08-0400 Respiratory rate 20 /min Mio Rogers MD Work Phone: [facility] 04-16-2024 16:08-0400 SaO2% (BldA) [Mass fraction] 98 % Mio Rogers MD Work Phone: [facility] 04-16-2024 16:08-0400 Systolic blood pressure 126 mm[Hg] Mio Rogers MD Work Phone: [facility] 03-23-2024 14:35-0400 Blood Pressure Location Elo Orzech [facility] 03-23-2024 14:35-0400 Diastolic blood pressure 70 mm[Hg] Elo Orzech [facility] 03-23-2024 14:35-0400 Heart rate 60 /min Elo Orzech [facility] 03-23-2024 14:35-0400 Respiratory rate 16 /min Elo Orzech [facility] 03-23-2024 14:35-0400 Systolic blood pressure 130 mm[Hg] Elo Orzech [facility] 01-21-2024 09:09-0500 Diastolic blood pressure 66 mm[Hg] Patrick Bustamante MD Work Phone: [facility] 01-21-2024 09:09-0500 Heart rate 102 /min Patrick Bustamante MD Work Phone: [facility] 01-21-2024 09:09-0500 Systolic blood pressure 116 mm[Hg] Patrick Bustamante MD Work Phone: [facility] 09-03-2023 08:12-0400 Body height 180.3 cm Patrick Bustamante MD Work Phone: [facility] 09-03-2023 08:12-0400 Body weight 104.33 kg Patrick Bustamante MD Work Phone: [facility] 07-22-2023 13:08-0400 Blood Pressure Location LIANNA GABRIEL [facility] 07-22-2023 13:08-0400 Diastolic blood pressure 76 mm[Hg] LIANNA GABRIEL [facility] 07-22-2023 13:08-0400 Heart rate 70 /min LIANNA GABRIEL [facility] 07-22-2023 13:08-0400 Respiratory rate 16 /min LIANNA GABRIEL [facility] 07-22-2023 13:08-0400 Systolic blood pressure 128 mm[Hg] LIANNA GABRIEL [facility] 10-30-2022 13:42-0500 Blood Pressure Location Kelly Payan [facility] 10-30-2022 13:42-0500 Diastolic blood pressure 68 mm[Hg] Kelly Payan [facility] 10-30-2022 13:42-0500 Heart rate 89 /min Kelly Payan [facility] 10-30-2022 13:42-0500 Systolic blood pressure 115 mm[Hg] Kelly Payan [facility] 04-17-2022 14:38-0400 Heart rate 75 /min LIANNA GABRIEL [facility] 04-17-2022 14:38-0400 Respiratory rate 16 /min LIANNA GARBIEL [facility] 03-05-2022 11:28-0400 Blood Pressure Location LIANNA GABRIEL [facility] 03-05-2022 11:28-0400 Diastolic blood pressure 73 mm[Hg] LIANNA GABRIEL [facility] 03-05-2022 11:28-0400 Heart rate 96 /min LIANNA GABRIEL [facility] 03-05-2022 11:28-0400 Systolic blood pressure 122 mm[Hg] LIANNA GABRIEL [facility] Encounters Encounter Date Encounter Type Care Provider Facility Start: 02-08-2025 ambulatory Ara L Guilherme [facility] Start: 12-23-2024 End: 12-23-2024 Clinisync Result Encounter Carter Agosto DO Work Phone: [facility] Unsolicited Start: 12-23-2024 End: 12-23-2024 Clinisync Result Encounter Carter Agosto DO Work Phone: [facility] Unsolicited Start: 12-22-2024 End: 12-22-2024 Office outpatient visit 15 minutes Kelley LITTLEJOHN Work Phone: [facility] Comment on above: Post-menopausal blee ding; Complex ovarian cyst; Uterine mass Start: 12-22-2024 End: 12-22-2024 ambulatory KELLEY BOLAÑOS Not Available Start: 12-22-2024 End: 12-22-2024 Bamboo flowsheet Kelley LITTLEJOHN Work Phone: [facility] Start: 12-22-2024 End: 12-22-2024 Bamboo flowsheet Kelley LITTLEJOHN Work Phone: [facility] Start: 12-15-2024 End: 12-15-2024 ambulatory ERICA MERCEDES Facility:[facility] Start: 12-15-2024 End: 12-15-2024 Patient encounter procedure Patrick Bustamante MD Work Phone: Rehab Medicine Comment on above: 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 [place] Start: 10-12-2024 End: 10-12-2024 ambulatory Ara L Guilherme Facility:[facility] [place] Start: 09-14-2024 End: 09-14-2024 ambulatory Ara L Guilherme Facility: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) (Primary Dx); Brain tumor (HCC) Start: 05-25-2024 End: 05-25-2024 ambulatory Ara L Guilherme [facility] Start: 05-19-2024 ambulatory Patrick Bustamante MD Work Phone: Rehab Medicine Start: 05-19-2024 Patient encounter procedure Sumit Bustamante MD Work Phone: Rehab Medicine Comment on above: botox Start: 05-07-2024 Telephone encounter Mio rubi MD Work Phone: Hematology/Oncology Comment on above: Individualized Education Plan Aide - O ther (Davis Franco Form ) Start: 05-06-2024 ambulatory Mio Rogers MD Work Phone: Hematology/Oncology Comment on above: [place] Start: 04-16-2024 End: 04-17-2024 Patient encounter procedure Mio Rogers MD Work Phone: Hematology/Oncology Start: 04-16-2024 End: 04-17-2024 ambulatory Mio Rogers MD Work Phone: Hematology/Oncology Comment on above: AL amyloidosis (HCC) (Primary Dx); Brain tumor (HCC) Start: 04-16-2024 End: 04-16-2024 Subsequent hospital visit by physician Mri Main Ca (1.5t) Work Phone: Radiology Comment on above: Brain tumor (HCC) [D 49.6] Start: 03-23-2024 End: 03-23-2024 ambulatory Elo X Orzech Facility:[facility] Start: 03-23-2024 End: 03-23-2024 Patient encounter procedure Elo X Orzech [facility] Start: 03-22-2024 End: 03-22-2024 Subsequent hospital visit by physician Ev Knutson (I-Stat/3t) Work Phone: Radiology Comment on above: Brain tumor (HCC) [D 49.6] Start: 03-17-2024 End: 03-17-2024 Refill Mitzy rBush RN Work Phone: Hematology/Oncology Comment on above: Refill Request Start: 02-25-2024 End: 02-25-2024 ambulatory Ara Vanegas Facility: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) (Primary Dx) Start: 01-14-2024 End: 01-14-2024 ambulatory Ara L Guilherme Facility:[facility] [place] Start: 12-15-2023 End: 12-15-2023 ambulatory Ara L Guilherme Facility:[facility] Start: 11-25-2023 End: 11-25-2023 ambulatory Ara L Guilherme Facility:[facility] Start: 11-12-2023 End: 11-12-2023 ambulatory Ara L Guilherme Facility:[facility] Start: 10-26-2023 ambulatory Mio Rogers MD Work Phone: Hematology/Oncology Comment on above: baclofen 10 mg Start: 10-24-2023 Refill Patrick Bustamante MD Work Phone: Rehab Medicine Comment on above: Refill Request Start: 10-08-2023 End: 10-08-2023 ambulatory Ara L Guilherme Facility:[facility] Start: 09-09-2023 End: 09-09-2023 ambulatory Ara L Guilherme Facility:[facility] [place] Start: 09-03-2023 End: 09-03-2023 Patient encounter procedure Patrick Bustamante MD Work Phone: Rehab Medicine Comment on above: 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) (Primary Dx); Brain tumor (HCC) Start: 08-22-2023 End: 08-22-2023 Patient encounter procedure Ara L Guilherme [facility] Start: 07-22-2023 End: 07-22-2023 Patient encounter procedure LIANNA RIOS [facility] Start: 07-09-2023 End: 07-09-2023 Patient encounter procedure Patrick Bustamante MD Work Phone: Rehab Medicine Comment on above: APPOINTMENT CANCELLE D (Primary Dx) Start: 07-08-2023 End: 07-08-2023 Patient encounter procedure Oseas Ward BLAS [facility] Start: 07-02-2023 End: 07-02-2023 Patient encounter procedure Ara Cote Guilherme [facility] Start: 06-24-2023 End: 06-24-2023 Lab Drop off Ara L Guilherme [facility] Start: 12-20-2022 End: 12-20-2022 ambulatory Mio Rogers MD Work Phone: Hematology/Oncology Comment on above: AL amyloidosis (HCC) (Primary Dx); Brain tumor (HCC) Start: 12-20-2022 End: 12-20-2022 Telemedicine consultation with patient Mio Rogers MD Work Phone: [facility] Start: 12-17-2022 ambulatory Mio Rogers MD Work Phone: Hematology/Oncology Start: 12-16-2022 End: 12-16-2022 Orders Only Zonia Josue RN Work Phone: Hematology/Oncology Comment on above: 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] Start: 12-12-2022 Refill Mio Rogers MD Work Phone: Hematology/Oncology Comment on above: Refill Request Start: 10-30-2022 End: 10-30-2022 Patient encounter procedure [facility] Payan [facility] Start: 10-01-2022 End: 10-01-2022 Patient encounter procedure Oseas BLAS [facility] Start: 09-23-2022 End: 09-23-2022 Subsequent hospital visit by physician Mri Main Ca (1.5t) Work Phone: Radiology Comment on above: Canceled (Pt cx: Res cheduled) Start: 09-23-2022 End: 09-23-2022 Patient encounter procedure Oseas BLAS [facility] Start: 09-11-2022 Refill Mio Rogers MD Work Phone: Hematology/Oncology Comment on above: Refill Request Start: 07-26-2022 Telephone encounter Mio rubi MD Work Phone: Hematology/Oncology Comment on above: Individualized Education Plan Aide - O ther (Question re: aug' appts) Start: 06-03-2022 Telephone encounter Mio rubi MD Work Phone: Hematology/Oncology Comment on above: Care Coordination ([employer] Assistance Form) Start: 04-17-2022 End: 04-17-2022 Lab Drop off LIANNA RIOS [facility] Start: 04-17-2022 End: 04-17-2022 Patient encounter procedure LIANNA RIOS [facility] Start: 03-05-2022 End: 03-05-2022 Patient encounter procedure LIANNA RIOS [facility] Start: 02-27-2022 Telephone encounter Mio rubi MD Work Phone: Hematology/Oncology Comment on above: Individualized Education Plan Aide - O ther (handicap) Start: 02-12-2022 End: 02-12-2022 Patient encounter procedure Oseas BLAS [facility] Start: 10-16-2020 End: 10-16-2020 Subsequent hospital visit by physician Mri [facility] (Lg Bore/1.5t) Radiology MRI Comment on above: Canceled (Pt cx: d/t [place] Virus COVID-19 Process) Start: 12-16-2019 End: 12-16-2019 Patient encounter procedure [facility] [place]: Procedures Date Procedure Procedure Detail Performing Clinician Start: 12-23-2024 [facility] Carter Agosto DO Work Phone: Start: 04-16-2024 Mri brain brain stem w/o w/contrast material Mio Rogers MD Work Phone: Start: 02-17-2024 Botulinum toxin type A (substance) Elo Case Start: 07-08-2023 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 LIANNA RIOS Start: 06-24-2023 Microscopic observation [Identifier] in Cervix by Cyto stain Kelley LITTLEJOHN Work Phone: Start: 12-16-2022 Mri brain brain stem w/o w/contrast material Mansi Gallagher APRN.SENIOR MEDIA PLANNER Work Phone: Start: 10-11-2022 Injection of therapeutic substance into bladder wall Kelly Payan Start: 03-30-2019 Injection of therapeutic substance into bladder wall Oseas BLAS Start: 11-10-2018 Injection of therapeutic substance into bladder wall Oseas BLAS Start: 12-09-2017 Cystourethroscopy with dilation of urethral stricture Oseas BLAS Start: 11-11-2017 Urodynamic studies Oseas BLAS Start: 02-17-2015 Adult depression screening assessment Mio Rogers MD Work Phone: brain biopsy Oseas BLAS 2010 Oseas Solomon section CS - section( Confirmed ) Oseas BLAS Cholecystectomy Cholecystectomy( Confirmed ) Oseas BLAS Operation on gallbladder Isa BLAS Plan of Treatment Date Care Activity Detail Author Start: 04-16-2027 [facility] Start: 06-24-2026 Screening for malign ant neoplasm of cervix [facility] Start: 12-16-2025 DIABETES SCREEN DIABETES SCREEN [facility] Start: 12-16-2025 [facility] Start: 04-16-2025 End: 07-16-2025 CBC W Auto Differential panel - Blood COMPLETE BLOOD COUNT AND DIFFERENTIAL Lab Routine AL amyloidosis (HCC) Expected: 04/16/2025 (Approximate), Expires: 07/16/2025 [facility] Comment on above: Expected: 04/16/2025 (Approximate), Expires: 07/16/2025 Start: 04-16-2025 End: 07-16-2025 Comprehensive metabolic 2000 panel - Serum or Plasma COMPREHENSIVE METABOLIC PANEL Lab Routine AL amyloidosis (HCC) Expected: 04/16/2025 (Approximate), Expires: 07/16/2025 [facility] Work Phone: Comment on above: Expected: 04/16/2025 (Approximate), Expires: 07/16/2025 Start: 04-16-2025 End: 07-16-2025 MONOCLONAL PROTEIN, SERUM (BLOOD) MONOCLONAL PROTEIN, SERUM (BLOOD) Lab Routine AL amyloidosis (HCC) Expected: 04/16/2025 (Approximate), Expires: 07/16/2025 [facility] Comment on above: Expected: 04/16/2025 (Approximate), Expires: 07/16/2025 Start: 04-16-2025 End: 05-16-2025 MR Brain WO and W contrast IV MRI BRAIN WO/W IVCON Radiology Routine Brain tumor (HCC) Expected: 04/16/2025 (Approximate), Expires: 05/16/2025 [facility] Comment on above: Expected: 04/16/2025 (Approximate), Expires: 05/16/2025 Start: 03-16-2025 End: 03-16-2025 Patient encounter procedure 03/16/2025 10:30 AM EDT Office Visit Rehab Medicine [address] [place] [address] Patrick Bustamante MD [address] [place] [address] 3 month botox Rehab Medicine Comment on above: 3 month botox Start: 01-13-2025 ambulatory Ambulatory Facility:[facility] Start: 12-22-2024 End: 12-22-2024 Patient encounter procedure 12/22/2024 3:30 PM EST Office Visit [facility] [address] [place] [id number] Kelley Bolaños PA [address] [place] [address] Arrived [facility] Comment on above: Arrived Start: 12-22-2024 End: 12-22-2025 AFP tumor marker AFP tumor marker Lab Routine Complex ovarian cyst Expected: 12/22/2024 (Approximate), Expires: 12/22/2025 [facility] Comment on above: Expected: 12/22/2024 (Approximate), Expires: 12/22/2025 Start: 12-22-2024 End: 12-22-2025 CA 125 CA 125 Lab Routine Complex ovarian cyst Expected: 12/22/2024 (Approximate), Expires: 12/22/2025 [facility] Comment on above: Expected: 12/22/2024 (Approximate), Expires: 12/22/2025 Start: 12-22-2024 End: 12-22-2025 Carcinoembryonic Ag [Mass/volume] in Serum or Plasma CEA Lab Routine Complex ovarian cyst Expected: 12/22/2024 (Approximate), Expires: 12/22/2025 [facility] Comment on above: Expected: 12/22/2024 (Approximate), Expires: 12/22/2025 Start: 12-22-2024 End: 12-22-2025 HCG, tumor marker HCG, tumor marker Lab Routine Complex ovarian cyst Expected: 12/22/2024 (Approximate), Expires: 12/22/2025 [facility] Comment on above: Expected: 12/22/2024 (Approximate), Expires: 12/22/2025 Start: 12-22-2024 End: 12-22-2025 Lactate dehydrogenase, isoenzymes Lactate dehydrogenase, isoenzymes Lab Routine Complex ovarian cyst Expected: 12/22/2024 (Approximate), Expires: 12/22/2025 [facility] Work Phone: Comment on above: Expected: 12/22/2024 (Approximate), Expires: 12/22/2025 Start: 12-15-2024 End: 12-15-2024 Patient encounter procedure 12/15/2024 1:00 PM EST Office Visit Rehab Medicine [address] [place] [address] Patrick Bustamante MD [address] [place], [place] [id number] [facility] Comment on above: [facility] Start: 09-17-2024 DIABETES SCREEN DIABETES SCREEN [facility] Start: 2024 End: 2024 Patient encounter procedure 2024 11:15 AM EDT Office Visit Rehab Medicine [address] [place] [address] Patrick Bustamante MD [address] [place] [address] [facility] Comment on above: [facility] Start: 07-25-2024 Covid-19 Vaccine () Covid-19 Vaccine () [facility] Start: 07-25-2024 Influenza vaccination Influenza Vacc ine (#1) [facility] Start: 05-26-2024 End: 05-26-2024 Patient encounter procedure 05/26/2024 1:00 PM EDT Office Visit Rehab Medicine [address] [place] [address] Patrick Bustamante MD [address] [place] [address] [facility] Comment on above: [facility] Start: 04-16-2024 End: 04-16-2024 Follow-up encounter 04/16/2024 4:00 PM EDT Visit (SP) Office Hematology/Oncology [address] [place] [address] Mio Rogers MD [address] [place] [address] FOLLOW UP Hematology/Oncology Comment on above: FOLLOW UP Start: 04-16-2024 End: 04-16-2024 ambulatory 04/16/2024 3:00 PM EDT Infusion Center Hematology/Oncology [address] [place] [address] labs Hematology/Oncology Comment on above: labs Start: 04-16-2024 Subsequent hospital visit by physician 04/16/2024 2:00 PM EDT Hospital Encounter Radiology [address] [place] [address] Brain tumor (HCC) [D49.6] Radiology Comment on above: Brain tumor (HCC) [D 49.6] Start: 03-22-2024 End: 03-22-2024 Follow-up encounter 03/22/2024 12:00 PM EDT Visit (SP) Office Hematology/Oncology [address] [place] [address] Mio Rogers MD [address] [place] [address] FOLLOW UP Hematology/Oncology Comment on above: FOLLOW UP Start: 03-22-2024 Subsequent hospital visit by physician 03/22/2024 10:40 AM EDT Hospital Encounter Radiology [address] [address] Brain tumor (HCC) [D49.6] Radiology Comment on above: Brain tumor (HCC) [D 49.6] Start: 03-22-2024 End: 03-22-2024 ambulatory 03/22/2024 10:00 AM EDT Results Only [facility] [address] [address] [place] [address] LABS [facility] [address] Comment on above: LABS Start: 02-05-2024 End: 01-15-2025 MR Brain WO and W contrast IV MRI BRAIN WO/W IVCON Radiology Routine Brain tumor (HCC) AL amyloidosis (HCC) Expected: 02/05/2024, Expires: 01/15/2025 [facility] Work Phone: Comment on above: Expected: 02/05/2024 , Expires: 01/15/2025 Start: 12-20-2023 End: 02-19-2024 CBC W Auto Differential panel - Blood CBC + DIFF Lab Routine AL amyloidosis (HCC) Expected: 12/20/2023 (Approximate), Expires: 02/19/2024 [facility] Work Phone: Comment on above: Expected: 12/20/2023 (Approximate), Expires: 02/19/2024 Start: 12-20-2023 End: 02-19-2024 Comprehensive metabolic 2000 panel - Serum or Plasma COMP METABOLIC PANEL Lab Routine AL amyloidosis (HCC) Expected: 12/20/2023 (Approximate), Expires: 02/19/2024 [facility] Work Phone: Comment on above: Expected: 12/20/2023 (Approximate), Expires: 02/19/2024 Start: 12-20-2023 End: 02-19-2024 MONOCLONAL PROTEIN, SERUM (BLOOD) MONOCLONAL PROTEIN, SERUM (BLOOD) Lab Routine AL amyloidosis (HCC) Expected: 12/20/2023 (Approximate), Expires: 02/19/2024 [facility] Work Phone: Comment on above: Expected: 12/20/2023 (Approximate), Expires: 02/19/2024 Start: 12-20-2023 End: 01-19-2024 Mri brain brain stem w/o w/contrast material MRI BRAIN WO/W IVCON Radiology Routine Brain tumor (HCC) AL amyloidosis (HCC) Expected: 12/20/2023 (Approximate), Expires: 01/19/2024 [facility] Work Phone: Comment on above: Expected: 12/20/2023 (Approximate), Expires: 01/19/2024 Start: 11-24-2023 Behavioral Health Screening Behavioral Health Screening [facility] Start: 11-24-2023 Depression Assessment Depression Ass essment [facility] Start: 07-25-2023 Covid-19 Vaccine () Covid-19 Vaccine () [facility] Start: 07-25-2023 Influenza vaccination [facility] Start: 12-16-2022 End: 02-15-2023 Comprehensive metabolic 2000 panel - Serum or Plasma [facility] Work Phone: Comment on above: Expected: 12/16/2022 , Expires: 02/15/2023 Start: 12-16-2022 End: 02-15-2023 MONOCLONAL PROTEIN, SERUM (BLOOD) [facility] Work Phone: Comment on above: Expected: 12/16/2022 , Expires: 02/15/2023 Start: 11-24-2022 DEPRESSION ASSESSMENT DEPRESSION ASS ESSMENT [facility] Start: 2022 Pneumococcal Vaccine : 50+ (1 of 1 - PCV) Pneumococcal Vaccine: 50+ (1 of 1 - PCV) [facility] Start: 2022 SHINGRIX VACCINE (1 of 2) RODRIGUEZ GRIX VACCINE (1 of 2) [facility] Start: 07-25-2022 Influenza vaccination INFLUENZA (#1) [facility] Start: 01-13-2022 COVID-19 VACCINE (3 - Booster for Pfizer series) COVID-19 VACCINE (3 - Booster for Pfizer series) [facility] Start: 11-24-2021 DEPRESSION ASSESSMENT DEPRESSION ASS ESSMENT [facility] Start: 10-08-2021 COVID-19 VACCINE (3 - Booster for Pfizer series) COVID-19 VACCINE (3 - Booster for Pfizer series) [facility] Start: 10-08-2021 COVID-19 VACCINE (3 - Pfizer series) COVID-19 VACCINE (3 - Pfizer series) [facility] Start: 09-16-2021 Urine microalbumin profile DTa P,Tdap,Td Vaccine (2 - Td or Tdap) [facility] Start: 2017 COLOGUARD (FIT-DNA) COLOGUARD (FIT-D NA) [facility] Start: 2017 Colonoscopy COLONOSCOPY [facility] Start: 2017 COLORECTAL CANCER SCREENING COLORECTAL CANCER SCREENING [facility] Start: [address] COLONOGRAPHY [facility] Start: 2017 FECAL OCCULT BLOOD FECAL OCCULT BLOO D [facility] Start: 2017 Lipid 1996 panel - S tameka or Plasma Lipid Screening [facility] Start: 2017 Lipid panel Lipid Screening [facility] Start: 2017 LIPID SCREEN LIPID SCREEN [facility] Start: 2017 Screening for malign ant neoplasm of colon [facility] Start: 2017 SIGMOIDOSCOPY SIGMOIDOSCOPY [facility] [facility] Start: 02-18-2016 Adult depression scr eening assessment DEPRESSION SCREENING [facility] Start: 2012 Mammography [facility] Start: 2012 Screening for malign ant neoplasm of breast [facility] Start: 2002 HPV TESTING HPV TESTING [facility] Start: 2002 Screening for malign ant neoplasm of cervix [facility] Start: 1993 PAP TESTING PAP TESTING [facility] Start: 1993 Screening for malign ant neoplasm of cervix [facility] Start: 1991 Hepatitis B Vaccine (1 of 3 - 19+ 3-dose series) Hepatitis B Vaccine (1 of 3 - 19+ 3-dose series) [facility] Start: 1991 Urine microalbumin profile [facility] Start: 1990 Anxiety Screening Anxiety Screening [facility] Start: 1990 Depression Screening Depression Scre ening [facility] Start: 1990 HEPATITIS C SCREENING HEPATITIS C [facility] Start: 1990 Hepatitis C screening Hepatitis C [facility] Start: 1990 HIV SCREENING HIV SCREENING [facility] Start: 1990 HIV screening HIV Screening [facility] Start: 1972 HEPATITIS B (1 of 3 - 3-dose series) HEPATITIS B (1 of 3 - 3-dose series) [facility] Start: 1972 Hepatitis B Vaccine (1 of 3 - 3-dose series) Hepatitis B Vaccine (1 of 3 - 3-dose series) [facility] Start: 1972 Screening for malign ant neoplasm of colon [facility] Immunizations Immunization Date Immunization Notes Care Provider [facility] 10-08-2023 influenza, injectabl e, quadrivalent, preservative free Elo Case [facility] [place] 10-08-2023 influenza virus vaccine, unspecified formulation Patrick Bustamante MD Work Phone: [facility] 09-17-2021 influenza virus vaccine, unspecified formulation LIANNA RIOS [facility] 09-17-2021 influenza, injectabl e, quadrivalent, preservative free Mio Rogers MD Work Phone: [facility] 09-05-2021 influenza virus vaccine, unspecified formulation LIANNA RIOS [facility] 08-24-2021 SARS-CoV-2 (COVID-19 ) Ad26 vaccine, recombinant Oseas [employer] [facility] 08-13-2021 SARS-CoV-2 (COVID-19 ) mRNA BNT-162b2 vax LIANNA RIOS [facility] Comment on above: Result Comment: 2022: TPV40 07-25-2021 SARS-CoV-2 (COVID-19 ) Ad26 vaccine, recombinant Oseas BLAS [facility] 07-23-2021 SARS-CoV-2 (COVID-19 ) mRNA BNT-162b2 vax LIANNA RIOS [facility] Comment on above: Result Comment: 2022: TPV40 09-21-2019 influenza virus vaccine, unspecified formulation LIANNA RIOS [facility] 09-21-2019 influenza, injectabl e, quadrivalent, preservative free Mio Rogers MD Work Phone: [facility] 09-19-2014 influenza virus vaccine, unspecified formulation LIANNA GABRIEL [facility] 09-19-2014 influenza, injectabl e, quadrivalent, preservative free Mio Rogers MD Work Phone: [facility] 09-24-2013 influenza virus vaccine, unspecified formulation Mio Rogers MD Work Phone: [facility] 11-26-2012 influenza virus vaccine, unspecified formulation Mio Rogers MD Work Phone: [facility] 09-16-2011 tetanus toxoid, reduced diphtheria toxoid, and acellular pertussis vaccine, adsorbed Oseas BLAS [facility] NEGATED: Highlighted row has not occurred!11-06-2020 influenza virus vaccine, unspecified formulation Ose[employer] BLAS [facility] Payers Date Payer Category Payer Medicare (Managed Care) [employer] M EDICARE ADVANTAGE [id number] 2023 Private Health Insurance [id number] 2022 Medicare [id number] 2020 Unknown ANTHEM BLUE CROS S AND BLUE SHIELD ANTHEM MEDIBLUE HMO [id number] 2020-Present [phone] [id number] HMO [id number] 2020 Unknown ANTHEM BLUE CROS S AND BLUE SHIELD ANTHEM MEDIBLUE HMO [id number] 2020-Present [phone] [address] [place] [address] HMO [id number] 2018 Medicare [id number] 1972 Unknown [id number] 2.16.840.1.462857.3.579. 2.593 1972 Unknown [id number] 2.16.840.1.606863.3.579. 2.727 1972 Unknown [id number] 2.16.840.1.959272.3.579. 2.727 1972 Unknown [id number] 2.16.840.1.428988.3.579. 2.727 1972 Unknown [id number] 2.16.840.1.945082.3.579. 2.727 1972 Unknown [id number] 2.16.840.1.457807.3.579. 2.727 1972 Unknown [id number] 2.16.840.1.252771.3.579. 2.727 1972 Unknown [id number] 2.16.840.1.887476.3.579. 2.72 1972 Unknown [id number] 2.16.840.1.869630.3.579. 2 1972 Unknown [id number] 2.16.840.1.390660.3.579. 2 1972 Unknown [id number] 2.16.840.1.788405.3.579. 2 1972 Unknown [id number] 2.16.840.1.161204.3.579. 2 1972 Unknown [id number] 2.16.840.1.713959.3.579. 2 1972 Unknown [id number] 2.16.840.1.746219.3.579. 2 1972 Unknown [id number] ..840.1.318305.3.579. 2 1972 Unknown [id number] 2.16.840.1.754313.3.579. 2 1972 Unknown [id number] 2.16.840.1.327068.3.579. 2 1972 Unknown [id number] 2..840.1.209263.3.579. 2 1972 Unknown [id number] 2.16.840.1.380078.3.579. 2 1972 Unknown [id number] 2.16.840.1.617564.3.579. 2 1972 Unknown [id number] 2.16.840.1.041827.3.579. 2 1972 Unknown [id number] 2.16.840.1.985065.3.579. 2 1972 Unknown [id number] 2.16.840.1.221764.3.579. 2 1972 Unknown [id number] 2.16.840.1.660030.3.579. 2.727 1972 Unknown [id number] 2.16.840.1.997010.3.579. 2.1259 1959 Medicare [id number] Social History Date Type Detail Facility Start: 09-13-2020 End: 07-21-2023 Tobacco smoking status Never smoked tobacco (finding) [facility] Comment on above: [email or web address] Tobacco smoking status Never [facility] Comment on above: [email or web address] Start: 07-11-2022 End: 03-03-2024 Sex Assigned At Female [facility] Start: 09-17-2021 End: 12-15-2024 Alcohol intake Current drinker of alcohol (finding) [facility] Start: 1972 Sex Assigned At Not on file [facility] Start: 12-14-2012 Tobacco use and exposure Smokeless tobacco non-user [facility] Start: 07-11-2022 End: 03-03-2024 History of Social function [facility] Start: 09-02-2020 End: 10-02-2020 Exposure to SARS-CoV-2 (event) Not sure [facility] Start: 12-22-2024 Alcoholic beverage intake Lifetime non-drinker (finding) [facility] Functional Status Date Assessment Result Facility 06-01-2024 Functional Status N/A [facility] 03-23-2024 Functional Status N/A [facility] 07-22-2023 Functional Status N/A [facility] 06-23-2023 Functional Status N/A [facility] 10-30-2022 Functional Status N/A [facility] 09-19-2022 Functional Status N/A [facility] Clinical Notes 02-12-2022 to 12-22-2024 ERON Curtis - 12/22/2024 3:30 PM Patrick Knott MD - 12/15/2024 1:02 PM ESTPatrick Abraham MD - 2024 11:24 AM EDTPatient InstructionsPatient InstructionsRadiologyRadiology Note Date & Type Note Facility 12-22-2024 History of Present illness Narrative Reason for Appointment: Patient ID: Monika Haskins is a 54 y.o. female who presents for post menopausal bleeding Patient presents today for Acute Visit. MEDICATIONS Current Outpatient Medications Medication Instructions Estrace 1 MG tablet ALLERGIES Allergies Allergen Reactions Bee Venom Swelling Morphine Hives and Rash Pt had a morphine injection and broke out in hives, with itching PROBLEMS Active Ambulatory Problems Diagnosis Date Noted No Active Ambulatory Problems Resolved Ambulatory Problems Diagnosis Date Noted No Resolved Ambulatory Problems Past Medical History: Diagnosis Date Amyloidosis (CMS/HCC) Cerebral tumor (CMS/HCC) History of being hospitalized 2011 Menopause HISTORY PAST MEDICAL HISTORY SOCIAL HISTORY Past Medical History: Diagnosis Date Amyloidosis (CMS/HCC) Cerebral tumor (CMS/HCC) History of being hospitalized 2011 infection from c- section Menopause Social History Tobacco Use Smoking status: Never Smokeless tobacco: Not on file Substance Use Topics Alcohol use: Never Drug use: Not on file FAMILY HISTORY No family history on file. SURGICAL HISTORY Past Surgical History: Procedure Laterality Date BRAIN BIOPSY 2011 SECTION, LOW TRANSVERSE [address] GUIDED IMAGING FOR STEREOTACTIC LOCALIZATION 11/25/2012 CT GUIDED IMAGING FOR STEREOTACTIC LOCALIZATION REVIEW OF SYSTEMS Review of Systems: Review of Systems Constitutional: Negative. HENT: Negative. Eyes: Negative. Respiratory: Negative. Cardiovascular: Negative. Gastrointestinal: Negative. Genitourinary: Negative. Musculoskeletal: Negative. Skin: Negative. Neurological: Negative. All other systems reviewed and are negative. Hematological: Negative. Endocrine: Negative. Allergic/Immunologic: Negative. OBJECTIVE Objective: Physical Exam Constitutional: Appearance: Normal appearance. She is well-developed. Cardiovascular: Rate and Rhythm: Normal rate and regular rhythm. Pulmonary: Effort: Pulmonary effort is normal. Breath sounds: Normal breath sounds. Abdominal: General: Bowel sounds are normal. There is no distension. Palpations: Abdomen is soft. Tenderness: There is no abdominal tenderness. There is no guarding or rebound. Musculoskeletal: General: No swelling. Normal range of motion. Right lower leg: No edema. Left lower leg: No edema. 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 Skin: General: Skin is warm and dry. Psychiatric: Mood and Affect: Mood normal. Behavior: Behavior normal. Vitals and nursing note reviewed. Exam conducted with a child and family therapist present. Vitals: Estimated body mass index is 29.29 kg/m as calculated from the following: Height as of 07/30/23: 6' 1 . Weight as of this encounter: 222 lb. BP: 128/76 No LMP recorded. (Menstrual status: No Periods). ASSESSMENT & PLAN ICD-10-CM 1. Post-menopausal bleeding N95.0 2. Complex ovarian cyst N83.299 Lactate dehydrogenase, isoenzymes CEA HCG, tumor marker CA 125 AFP tumor marker Lactate dehydrogenase, isoenzymes CEA HCG, tumor marker CA 125 AFP tumor marker 3. Uterine mass N85.8 Pt presents with post-menopausal bleeding, pt was put into menopause from brain tumor medication. Reviewed ultrasound with pt in detail. Mass noted in right uterine body. Pt having pain on right side. Pt to be scheduled for D&C hysteroscopy with poss myosure, dx lap with poss MARY poss FOE poss BSO. Discussed uterine cancer and calcified mass. Pt to be scheduled for surgery. Pt given tumor markers. Documented by Camelia Burden LPN on behalf of Carter Agosto DO documented in this encounter [facility] 12-15-2024 Note HNO ID: [id number] Author: PATRICK BUSTAMANTE MD Service: ? Author Type: Physician Type: Progress Notes Filed: 12/15/2024 13:52 Note Text: BOTULINUM TOXIN THERAPY - Informed consent was signed on 11/12/2023. Patient accompanied by: No one. Current complaints / history since last visit: most recent botulinum toxin injections on 2024. She reports that botox injections were effective with less stiffness and pain with improved range of motion. Walking was better. She did not have to use her cane. Balance was better. There was better positioning. She has occasional spasms. Oral antispasticity medications: Baclofen 10 mg three times daily Illnesses / hospitalizations since the last visit: No Other updates: Her mother had PEs and is not doing well. Anticoagulation: No Home stretching/exercise routine: She performs stretching exercises daily PT/OT: She is in physical therapy BT therapy effective? Yes - stiffness, spasms/cramps,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 different types of urodynamic tests, and they vary depending on what the test is measuring. To help diagnose your condition, your health care provider may recommend that you keep a log of when you urinate and how much you urinate. How is this treated? Treatment for this condition depends on the type of incontinence that you have and its cause. Treatment may include: Lifestyle changes, such as: ?Quitting smoking. ?Maintaining a healthy weight. ?Staying active. Try to get 150 minutes of moderate-intensity exercise every week. Ask your health care provider which activities are safe for you. ?Eating a healthy diet. ?Avoid high-fat foods, like fried foods. ?Avoid refined carbohydrates like white bread and white rice. ?Limit how much alcohol and caffeine you drink. ?Increase your fiber intake. Healthy sources of fiber include beans, whole grains, and fresh fruits and vegetables. Behavioral changes, such as: ?Pelvic floor muscle exercises. ?Bladder training, such as lengthening the amount of time between bathroom breaks, or using the bathroom at regular intervals. ?Using techniques to suppress bladder urges. This can include distraction techniques or controlled breathing exercises. Medicines, such as: ?Medicines to relax the bladder muscles and prevent bladder spasms. ?Medicines to help slow or prevent the growth of a man's prostate. ?Botox injections. These can help relax the bladder muscles. Treatments, such as: ?Using pulses of electricity to help change bladder reflexes (electrical nerve stimulation). ?For women, using a diploma medical assistant to prevent urine leaks. This is a small, tampon-like, disposable device that is inserted into the urethra. ?Injecting collagen or carbon beads (bulking agents) into the urinary sphincter. These can help thicken tissue and close the bladder opening. ?Surgery. Follow these instructions at home: Lifestyle Limit alcohol and caffeine. These can fill your bladder quickly and irritate it. Keep yourself clean to help prevent odors and skin damage. Ask your health care provider about special skin creams and cleansers that can protect the skin from urine. Consider wearing pads or adult diapers. Make sure to change them regularly, and always change them right after experiencing incontinence. General instructions Take [id number] and prescription medicines only as told by your health care provider. Use the bathroom about every 3 4 hours, even if you do not feel the need to urinate. Try to empty your bladder completely every time. After urinating, wait a minute. Then try to urinate again. Make sure you are in a relaxed position while urinating. If your incontinence is caused by nerve problems, keep a log of the medicines you take and the times you go to the bathroom. Keep all follow-up visits. This is important. Where to find more information National [place] of Diabetes and Digestive and Kidney Diseases: www.niddk.nih.gov [employer]: www.urologyhealth.org Contact a health care provider if: You have pain that gets worse. Your incontinence gets worse. Get help right away if: You have a fever or chills. You are unable to urinate. You have redness in your groin area or down your legs. Summary Urinary incontinence refers to a condition in which a person is unable to control where and when to pass urine. This condition may be caused by medicines, infection, weak bladder muscles, weak pelvic floor muscles, enlargement of the prostate (in men), or surgery. Factors such as older age, obesity, and childbirth, menopause, neurological diseases, and chronic coughing may increase your risk for developing this condition. Types of urinary incontinence include urge incontinence, stress incontinence, overflow incontinence, and functional incontinence. This condition is usually treated first with lifestyle and behavioral changes, such as quitting smoking, eating a healthier diet, and doing regular pelvic floor exercises. Other treatment options include medicines, bulking agents, medical devices, electrical nerve stimulation, or surgery. This information is not intended to replace advice given to you by your health care provider. Make sure you discuss any questions you have with your health care provider. Document Revised: 06/15/2021 Document Reviewed: 06/15/2021 [employer] Patient Education 2022 [employer]. 06/01/2024 15:02:52 Overactive Bladder, Adult Overactive Bladder, Adult Overactive bladder is a condition in which a person has a sudden and frequent need to urinate. A person might also leak urine if he or she cannot get to the bathroom fast enough (urinary incontinence). Sometimes, symptoms can interfere with work or social activities. What are the causes? Overactive bladder is associated with poor nerve signals between your bladder and your brain. Your bladder may get the signal to empty before it is full. You may also have very sensitive muscles that make your bladder squeeze too soon. This condition may also be caused by other factors, such as: Medical conditions: ?Urinary tract infection. ?Infection of nearby tissues. ?Prostate enlargement. ?Bladder stones, inflammation, or tumors. ?Diabetes. ?Muscle or nerve weakness, especially from these conditions: ?A spinal cord injury. ?Stroke. ?Multiple sclerosis. ?Parkinson's disease. Other causes: ?Surgery on the uterus or urethra. ?Drinking too much caffeine or alcohol. ?Certain medicines, especially those that eliminate extra fluid in the body (diuretics). ?Constipation. What increases the risk? You may be at greater risk for overactive bladder if you: Are an older adult. Smoke. Are going through menopause. Have prostate problems. Have a neurological disease, such as stroke, dementia, Parkinson's disease, or multiple sclerosis (MS). Eat or drink alcohol, spicy food, caffeine, and other things that irritate the bladder. Are overweight or obese. What are the signs or symptoms? Symptoms of this condition include a sudden, strong urge to urinate. Other symptoms include: Leaking urine. Urinating 8 or more times a day. Waking up to urinate 2 or more times overnight. How is this diagnosed? This condition may be diagnosed based on: Your symptoms and medical history. A physical exam. Blood or urine tests to check for possible causes, such as infection. You may also need to see a health care provider who specializes in urinary tract problems. This is called a urologist. How is this treated? Treatment for overactive bladder depends on the cause of your condition and whether it is mild or severe. Treatment may include: Bladder training, such as: ?Learning to control the urge to urinate by following a schedule to urinate at regular intervals. ?Doing Kegel exercises to strengthen the pelvic floor muscles that support your bladder. Special devices, such as: ?Biofeedback. This uses sensors to help you become aware of your body's signals. ?Electrical stimulation. This uses electrodes placed inside the body (implanted) or outside the body. These electrodes send gentle pulses of electricity to strengthen the nerves or muscles that control the bladder. ?Women may use a plastic device, called a pessary, that fits into the vagina and supports the bladder. Medicines, such as: ?Antibiotics to treat bladder infection. ?Antispasmodics to stop the bladder from releasing urine at the wrong time. ?Tricyclic antidepressants to relax bladder muscles. ?Injections of botulinum toxin type A directly into the bladder tissue to relax bladder muscles. Surgery, such as: ?A device may be implanted to help manage the nerve signals that control urination. ?An electrode may be implanted to stimulate electrical signals in the bladder. ?A procedure may be done to change the shape of the bladder. This is done only in very severe cases. Follow these instructions at home: Eating and drinking Make diet or lifestyle changes recommended by your health care provider. These may include: ?Drinking fluids throughout the day and not only with meals. ?Cutting down on caffeine or alcohol. ?Eating a healthy and balanced diet to prevent constipation. This may include: ?Choosing foods that are high in fiber, such as beans, whole grains, and fresh fruits and vegetables. ?Limiting foods that are high in fat and processed sugars, such as fried and sweet foods. Lifestyle Lose weight if needed. Do not use any products that contain nicotine or tobacco. These include cigarettes, chewing tobacco, and vaping devices, such as e-cigarettes. If you need help quitting, ask your health care provider. General instructions Take qvnp-rbj-xlondwd and prescription medicines only as told by your health care provider. If you were prescribed an antibiotic medicine, take it as told by your health care provider. Do not stop taking the antibiotic even if you start to feel better. Use any implants or pessary as told by your health care provider. If needed, wear pads to absorb urine leakage. Keep a log to track how much and when you drink, and when you need to urinate. This will help your health care provider monitor your condition. Keep all follow-up visits. This is important. Contact a health care provider if: You have a fever or chills. Your symptoms do not get better with treatment. Your pain and discomfort get worse. You have more frequent urges to urinate. Get help right away if: You are not able to control your bladder. Summary Overactive bladder refers to a condition in which a person has a sudden and frequent need to urinate. Several conditions may lead to an overactive bladder. Treatment for overactive bladder depends on the cause and severity of your condition. Making lifestyle changes, doing Kegel exercises, keeping a log, and taking medicines can help with this condition. This information is not intended to replace advice given to you by your health care provider. Make sure you discuss any questions you have with your health care provider. Document Revised: 07/30/2021 Document Reviewed: 07/30/2021 [employer] Patient Education 2022 [employer]. Follow Up Care 03/23/2024 15:00:41 With:DIANA Case APRN, Elo Michel, AURELIO, URL Address: When: Unknown Comments:1 year [facility] 06-01-2024 Note Patient Education Obstetrics and Gynecology Overactive Bladder, Adult Overactive bladder is a condition in which a person has a sudden and frequent need to urinate. A person might also leak urine if he or she cannot get to the bathroom fast enough (urinary incontinence). Sometimes, symptoms can interfere with work or social activities. What are the causes? Overactive bladder is associated with poor nerve signals between your bladder and your brain. Your bladder may get the signal to empty before it is full. You may also have very sensitive muscles that make your bladder squeeze too soon. This condition may also be caused by other factors, such as: ? Medical conditions: ? Urinary tract infection. ? Infection of nearby tissues. ? Prostate enlargement. ? Bladder stones, inflammation, or tumors. ? Diabetes. ? Muscle or nerve weakness, especially from these conditions: ? A spinal cord injury. ? Stroke. ? Multiple sclerosis. ? Parkinson's disease. ? Other causes: ? Surgery on the uterus or urethra. ? Drinking too much caffeine or alcohol. ? Certain medicines, especially those that eliminate extra fluid in the body (diuretics). ? Constipation. What increases the risk? You may be at greater risk for overactive bladder if you: ? Are an older adult. ? Smoke. ? Are going through menopause. ? Have prostate problems. ? Have a neurological disease, such as stroke, dementia, Parkinson's disease, or multiple sclerosis (MS). ? Eat or drink alcohol, spicy food, caffeine, and other things that irritate the bladder. ? Are overweight or obese. What are the signs or symptoms? Symptoms of this condition include a sudden, strong urge to urinate. Other symptoms include: ? Leaking urine. ? Urinating 8 or more times a day. ? Waking up to urinate 2 or more times overnight. How is this diagnosed? This condition may be diagnosed based on: ? Your symptoms and medical history. ? A physical exam. ? Blood or urine tests to check for possible causes, such as infection. You may also need to see a health care provider who specializes in urinary tract problems. This is called a urologist. How is this treated? Treatment for overactive bladder depends on the cause of your condition and whether it is mild or severe. Treatment may include: ? Bladder training, such as: ? Learning to control the urge to urinate by following a schedule to urinate at regular intervals. ? Doing Kegel exercises to strengthen the pelvic floor muscles that support your bladder. ? Special devices, such as: ? Biofeedback. This uses sensors to help you become aware of your body's signals. ? Electrical stimulation. This uses electrodes placed inside the body (implanted) or outside the body. These electrodes send gentle pulses of electricity to strengthen the nerves or muscles that control the bladder. ? Women may use a plastic device, called a pessary, that fits into the vagina and supports the bladder. ? Medicines, such as: ? Antibiotics to treat bladder infection. ? Antispasmodics to stop the bladder from releasing urine at the wrong time. ? Tricyclic antidepressants to relax bladder muscles. ? Injections of botulinum toxin type A directly into the bladder tissue to relax bladder muscles. ? Surgery, such as: ? A device may be implanted to help manage the nerve signals that control urination. ? An electrode may be implanted to stimulate electrical signals in the bladder. ? A procedure may be done to change the shape of the bladder. This is done only in very severe cases. Follow these instructions at home: Eating and drinking ? Make diet or lifestyle changes recommended by your health care provider. These may include: ? Drinking fluids throughout the day and not only with meals. ? Cutting down on caffeine or alcohol. ? Eating a healthy and balanced diet to prevent constipation. This may include: ? Choosing foods that are high in fiber, such as beans, whole grains, and fresh fruits and vegetables. ? Limiting foods that are high in fat and processed sugars, such as fried and sweet foods. Lifestyle ? Lose weight if needed. ? Do not use any products that contain nicotine or tobacco. These include cigarettes, chewing tobacco, and vaping devices, such as e-cigarettes. If you need help quitting, ask your health care provider. General instructions ? Take [id number] and prescription medicines only as told by your health care provider. ? If you were prescribed an antibiotic medicine, take it as told by your health care provider. Do not stop taking the antibiotic even if you start to feel better. ? Use any implants or pessary as told by your health care provider. ? If needed, wear pads to absorb urine leakage. ? Keep a log to track how much and when you drink, and when you need to urinate. This will help your health care (more content not included)... [facility] 05-26-2024 Note O ID: [id number] Author: PATRICK BUSTAMANTE MD Service: ? Author Type: Physician Type: Progress Notes Filed: 05/26/2024 13:38 Note Text: BOTULINUM TOXIN THERAPY - Informed consent was signed on 11/12/2023. Patient accompanied by: No one. Current complaints / history since last visit: most recent botulinum toxin injections on 02/18/2024. She reports that botox injections were effective with less stiffness and improved range of motion. There was better positioning in the left arm. Walking was better. It was easier to open her hand. She was able to wear her wedding ring. She has occasional spasms. Oral antispasticity medications: Baclofen 10 mg three times daily Illnesses / hospitalizations since the last visit: No Other updates: Her first grandchild is due in July 2024 Anticoagulation: No Home stretching/exercise routine: She performs stretching exercises daily PT/OT: She is in physical therapy BT therapy effective? Yes - stiffness, pain/discomfort, active function and other (range of motion) Duration of benefit: 10 weeks Side effects: No Spasm scale: 2=Infrequent full spasms occuring less than once per hour Pain related to the purpose of the visit: Yes LOCATION: Left shoulder PAIN SCALE: 2 on a scale of 0-10 PAIN CHARACTER: dull and constant DURATION: (How long have you had the pain?) Several years FREQUENCY: (How often does the pain occur?) Occurs constantly Patient Entered Data PROMIS No data to display Spasticity NRS 02/18/2024 11/12/2023 -- Spasm Scale 2=Infrequent full spasms occuring less than once per hour 2=Infrequent full spasms occuring less than once per hour Spasm Scale - Trendable Number 2 2 Spasm Scale No data to display Global Impression of Change No data to display Nutritional status: appetite is good, weight is stable, swallowing with no problems Driving issues: No issues per patient Safety concerns regarding living situations and safety at home: No At risk for falling: Yes, frequency once every 2 weeks, no injuries Examination: Strength Right Left Shoulder abduction 5 2+ Elbow flexion 5 1+ Elbow extension 5 2 Wrist extension 5 0 Hip flexion 5 3+ Knee flexion 5 2 Knee extension 5 4 Plantarflexion 5 Dorsiflexion 5 Strength: She is wearing left AFO. Spasticity Right Left Shoulder 0 3 Elbow flexors 0 2 Elbow extensors 0 3 Wrist flexors 0 0 Wrist extensors 0 2 Finger flexors 0 2 Finger extensors 0 0 Hip adductors 0 1 Knee extensors 0. 1 Knee flexors 0 0 Plantarflexors 0 Modified Francine Scale 0 - No increase in tone 1 - Slight increase in tone (catch and release at end of ROM) 1+ - Slight increase in tone, manifested by a catch, followed by minimal resistance throughout remainder (less than half of ROM) 2 - Marked increase in tone through most of the ROM, but affected part(s) easily moved 3 - Considerable increase in tone; passive movement difficult 4 - Affected part(s) rigid in flexion or extension She is wearing left AFO Spasms observed: RUE: no right upper extremity spasms LUE: no left upper extremity spasms RLE: no right lower extremity spasms LLE: no left lower extremity spasms [facility] MS TIMED 25 FOOT WALK: Not tested. Assistance required: crutches (She uses a forearm crutch) Ambulation Index Score: 4 - Unilateral support and 25 ft <20 sec OR no support and 25 ft > 20 sec UNIVERSAL PROTOCOL / SAFETY CHECKLIST Procedure to be Performed: Botulinum Toxin Injections Sign In: A Moment of CARE was completed. Personnel directly involved with the procedure wore the appropriate PPE (Personal Protective Equipment). Special equipment: EMG Patient/Surrogate Stated/Verified: PATIENT VERIFIED(optional for EMERGENT procedures): Patient name, Date of , Relevant allergies, and The intended procedure Time Out Communication: Intended patient and procedure match the source documents. Consent documented and matches the intended procedure. Correct side/site marked and visible. Medications required for procedure verified. Sign Out: SIGN OUT (optional for EMERGENT procedures): LYN Bustamante MD The risks, benefits and alternatives of the procedure were explained. Written Consent Obtained: yes - 11/12/2023 Clinician(s) performing the injections: Patrick Bustamante MD Equipment Processer Storage: Leidy Rico LPN and Danielle Snyder RN The patient was positioned lying supine on the exam table. Brand of toxin injected: Botox. After skin preparation with alcohol, a total dose of 300 units were injected as follows: Muscle Limb/Side Dose Guidance Comments Biceps LUE 50 units EMG 2 sites Triceps LUE 75 units EMG 2 sites FDS LUE 50 units EMG 1 sites FCR LUE 75 units EMG 2 sites Pectoralis Left 50 units EMG 2 sites Total Dose: 300 0 units discarded. Dilution: 100 units / 2 ml LOT #: [id number] Expiration Date: Month: 8 Year: 26 The injections were well tolerated. Minimal bleeding occurred at the (more content not included)... [facility] 05-26-2024 History of Present illness Narrative Images from the original note were not included. BOTULINUM TOXIN THERAPY - Informed consent was signed on 11/12/2023. Patient accompanied by: No one. Current complaints / history since last visit: most recent botulinum toxin injections on 02/18/2024. She reports that botox injections were effective with less stiffness and improved range of motion. There was better positioning in the left arm. Walking was better. It was easier to open her hand. She was able to wear her wedding ring. She has occasional spasms. Oral antispasticity medications: Baclofen 10 mg three times daily Illnesses / hospitalizations since the last visit: No Other updates: Her first grandchild is due in July 2024 Anticoagulation: No Home stretching/exercise routine: She performs stretching exercises daily PT/OT: She is in physical therapy BT therapy effective? Yes - stiffness, pain/discomfort, active function and other (range of motion) Duration of benefit: 10 weeks Side effects: No Spasm scale: 2=Infrequent full spasms occuring less than once per hour Pain related to the purpose of the visit: Yes LOCATION: Left shoulder PAIN SCALE: 2 on a scale of 0-10 PAIN CHARACTER: dull and constant DURATION: (How long have you had the pain?) Several years FREQUENCY: (How often does the pain occur?) Occurs constantly Patient Entered Data PROMIS No data to display Spasticity NRS 02/18/2024 11/12/2023 -- Spasm Scale 2=Infrequent full spasms occuring less than once per hour 2=Infrequent full spasms occuring less than once per hour Spasm Scale - Trendable Number 2 2 Spasm Scale No data to display Global Impression of Change No data to display Nutritional status: appetite is good, weight is stable, swallowing with no problems Driving issues: No issues per patient Safety concerns regarding living situations and safety at home: No At risk for falling: Yes, frequency once every 2 weeks, no injuries Examination: Strength Right Left Shoulder abduction 5 2+ Elbow flexion 5 1+ Elbow extension 5 2 Wrist extension 5 0 Hip flexion 5 3+ Knee flexion 5 2 Knee extension 5 4 Plantarflexion 5 Dorsiflexion 5 Strength: She is wearing left AFO. Spasticity Right Left Shoulder 0 3 Elbow flexors 0 2 Elbow extensors 0 3 Wrist flexors 0 0 Wrist extensors 0 2 Finger flexors 0 2 Finger extensors 0 0 Hip adductors 0 1 Knee extensors 0. 1 Knee flexors 0 0 Plantarflexors 0 Modified Francine Scale 0 - No increase in tone 1 - Slight increase in tone (catch and release at end of ROM) 1+ - Slight increase in tone, manifested by a catch, followed by minimal resistance throughout remainder (less than half of ROM) 2 - Marked increase in tone through most of the ROM, but affected part(s) easily moved 3 - Considerable increase in tone; passive movement difficult 4 - Affected part(s) rigid in flexion or extension She is wearing left AFO Spasms observed: RUE: no right upper extremity spasms LUE: no left upper extremity spasms RLE: no right lower extremity spasms LLE: no left lower extremity spasms [facility] MS TIMED 25 FOOT WALK: Not tested. Assistance required: crutches (She uses a forearm crutch) Ambulation Index Score: 4 - Unilateral support and 25 ft <20 sec OR no support and 25 ft > 20 sec UNIVERSAL PROTOCOL / SAFETY CHECKLIST Procedure to be Performed: Botulinum Toxin Injections Sign In: A Moment of CARE was completed. Personnel directly involved with the procedure wore the appropriate PPE (Personal Protective Equipment). Special equipment: EMG Patient/Surrogate Stated/Verified: PATIENT VERIFIED(optional for EMERGENT procedures): Patient name, Date of , Relevant allergies, and The intended procedure Time Out Communication: Intended patient and procedure match the source documents. Consent documented and matches the intended procedure. Correct side/site marked and visible. Medications required for procedure verified. Sign Out: SIGN OUT (optional for EMERGENT procedures): LYN Bustamante MD The risks, benefits and alternatives of the procedure were explained. Written Consent Obtained: yes - 11/12/2023 Clinician(s) performing the injections: Patrick Bustamante MD Equipment Processer Storage: Leidy Rico LPN and Danielle Snyder RN The patient was positioned lying supine on the exam table. Brand of toxin injected: Botox. After skin preparation with alcohol, a total dose of 300 units were injected as follows: Muscle Limb/Side Dose Guidance Comments Biceps LUE 50 units EMG 2 sites Triceps LUE 75 units EMG 2 sites FDS LUE 50 units EMG 1 sites FCR LUE 75 units EMG 2 sites Pectoralis Left 50 units EMG 2 sites Total Dose: 300 0 units discarded. Dilution: 100 units / 2 ml LOT #: [id number] Expiration Date: Month: 8 Year: 26 The injections were well tolerated. Minimal bleeding occurred at the injection sites. 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 Botox injections were effective and well tolerated. I discussed spasticity treatment options with the patient and she was agreeable to continuing botox injections, increasing the dose and adding the left pectoralis muscle. We repeated botox injections today without immediate complications. We will repeat botox injections in 3 months, same muscles and total dose of 300-400 units. She is to continue to perform stretching exercises daily and in physical therapy. MS BT PRE AUTH Plan: 1 - Repeat injections in 3 months, 400 units. Transfers independently. 2 - Continue to perform stretching exercises daily and in physical therapy. 3 - Note copied to Mio Rogers MD via [employer]. Time spent with patient: 45 mn. Patrick Bustamante MD documented in this encounter [facility] 05-25-2024 Instructions Patrick Bustamante MD - 05/25/2024 5:14 PM EDT You have received botulinum toxin injections today. The skin around the site of injections should be monitored for a couple of days. If redness or swelling occur, the skin should be examined by a health healthcare corporate account director to rule out infection. If you experience pain in the muscles injected over the next few days, you can take Tylenol to control the pain (unless contra-indicated). Please call our office at [phone] with any questions or concerns. Patrick Bustamante MD documented in this encounter [facility] 05-19-2024 Telephone encounter Note [employer] approved till 11/16; no units [place] [facility] Work Phone: 05-19-2024 Miscellaneous Notes [employer] approved till 11/16; no units [place] documented in this encounter [facility] 05-07-2024 Telephone encounter Note Monika Haskins is calling Mio Rogers MD today regarding Individualized Education Plan Aide - Other (Davis Franco Form ) Patient has been identified by name and birthdate. Patient called to enquire if we have received the Davis Franco Form faxed to us minutes ago, I checked and informed her yes. She requested it to be filled and faxed back over today. The fax was forwarded over to the [facility] nurses. Patient can be reached at: [phone] (home) Blanca Lee May 07, 2024 [facility] 05-07-2024 Miscellaneous Notes Monika Haskins is calling Mio Rogers MD today regarding Individualized Education Plan Aide - Other (Davis Franco Form ) Patient has been identified by name and birthdate. Patient called to enquire if we have received the [employer] Franco Form faxed to us minutes ago, I checked and informed her yes. She requested it to be filled and faxed back over today. The fax was forwarded over to the [facility] nurses. Patient can be reached at: [phone] (home) Blanca Lee May 07, 2024 documented in this encounter [facility] 04-16-2024 Nurse Note Additional intake questions: Has the patient had fever, nausea, vomiting, diarrhea, constipation, fatigue for > 1 week? No Does the patient have a decreased appetite? No Does patient want to see a Tanbark Laborer? No (yes to any of above refer patient to schedulers for dietitian appointment) ) Does patient have any new or increased numbness or tingling of extremities? No Is patient interested in fertility information? No Does patient need any prescription refills? No Does patient have an advanced directive in place? no [facility] 04-16-2024 Nurse Note Additional intake questions: Has the patient had fever, nausea, vomiting, diarrhea, constipation, fatigue for > 1 week? No Does the patient have a decreased appetite? No Does patient want to see a Tanbark Laborer? No (yes to any of above refer patient to schedulers for dietitian appointment) ) Does patient have any new or increased numbness or tingling of extremities? No Is patient interested in fertility information? No Does patient need any prescription refills? No Does patient have an advanced directive in place? no documented in this encounter [facility] 04-16-2024 History of Present illness Narrative Images from the original note were not included. (Elements copied from prior note dated 09/17/2021, have been reviewed and updated where appropriate, and all reflect current assessment and medical decision-making during today's encounter, 04/16/2024) [facility] Monika Haskins is a 53 year old female patient. CC: AL amyloidoma of PROFILE GRINDER HPI: Monika Haskins is a 51 year old female who presents today for follow up of AL (lambda) amyloidoma of PROFILE GRINDER. Overall she is doing well. Left sided hemiparesis stable. MRIb on 04/16 with stable right cerebral hemisphere biopsy-proven amyloidoma compared to 12/16/2022. Treatment History: Cyclophosphamide 500 mg weekly 3 weeks on and 1 week off and dexamethasone 40 mg weekly. Start 12/02/12. Dexamethasone decreased to 12 mg weekly 9/13. Discontinued as of November 2013. Amyloid History: The patient states that she began to develop some difficulty with the use of her left leg. She eventually had evaluation for this and the etiology of the left leg weakness was thought to be due to a disc herniation. However she had progressive loss of function with spasticity of the left leg and this then progressed to also including the left arm and left side of her face. On November 04, 2012 well she underwent an MRI which identified a lesion in the deep white matter of the right parietal lobe adjacent to the lateral ventricle. She has undergone a stereotactic biopsy of this lesion. The pathology report documents amyloid deposition with associated gliosis and chronic inflammation. The [place] red stain showed evidence of globular and angiocentric deposits of amyloid material. Diagnosis confirmed by tandem mass spectometry. With regards to a history of inflammation, she states that with the of her son she had a complicated by a large intra-abdominal abscess. Review Of Systems: GENERAL:No fever, chills, sweats, night sweats or weight loss. HEENT:No changes in hearing or vision, no nose bleeds or other nasal problems, No odynophagia or dysphagia. + headaches NECK:Negative for lumps, goiter, pain and significant neck swelling RESPIRATORY: Negative for cough, wheezing or shortness of breath., No hemoptysis CARDIOVASCULAR: Negative for chest pain, leg swelling or palpitations. 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 NEUROLOGIC:See HPI SKIN:Negative for lesions, rash, and itching. PSYCHIATRIC: sleep and mood disturbance with dexamethasone HEMATOLOGIC/LYMPHATIC/IMMUNOLOGIC :bruising easily ENDOCRINE: Negative for cold or heat intolerance, polyuria, polydipsia and goiter. The remainder of the ROS was negative. Past medical history PAST MEDICAL HISTORY Diagnosis Date Deep venous thrombosis (HCC) right arm Foot drop left foot - ultimately thought to be dystonia Hypertension when sick after delivery of her baby 1 year ago Infection in abdomen (HCC) Pneumothorax Past surgical history PAST SURGICAL HISTORY Procedure Laterality Date , CLASSIC, IN-HOSP CARE Sep 14, 2011 CHOLECYSTECTOMY 1999 Allergies / intolerances ALLERGIES Allergen Reactions Morphine Hives Pt had a morphine injection and broke out in hives, with itching Medications iv contrast (will be provided with radiology test) MRI Brain Inject, intravenously, once for 1 dose.No IV access, insert saline lock prior to beginning of sedation, infusion, injection of imaging exam.Discontinue saline lock post exam. If Pt. has a central line or IVAD, may access for administration according to line specific nursing protocol.Once exam is complete flush line and de-access according to line specific nursing protocol in the MR contrast administration guidelines link LORazepam (ATIVAN) 1 mg tablet Take 1-2 tablets prior to MRI procedure. SEMAGLUTIDE SUBCUTANEOUS Inject 5 mg subcutaneously one time a week. baclofen 10 mg tablet Take 1 tablet by mouth three times a day. Estradiol (ESTRACE) 0.5 mg tablet Take 1 tablet by mouth once daily. onabotulinum toxin type A (BOTOX) 100 unit solr Injected every 3 months for spasticity as directed. Social history Social History Tobacco Use Smoking status: Never Smokeless tobacco: Never Substance Use Topics Alcohol use: Yes Comment: very very rarely Drug use: No Family history FAMILY HISTORY Problem Relation Age of Onset Heart Father Physical exam BP 126/69 Pulse 106 Temp 37.1 C (98.7 F) (Temporal) Resp 20 Ht 180.3 cm (5' 11 ) Wt 107.2 kg (236 lb 5.3 oz) LMP 09/19/2014 SpO2 98% BMI 32.96 kg/m General appearance: well appearing, alert, in no acute distress Skin: skin color, texture, turgor normal, no rashes or lesions. Head:normocephalic, no masses, lesions, tenderness or abnormalities Eyes: Anicteric sclera. Pupils are equally round and reactive to light. Extraocular movements are intact. Ears: external ears normal Oropharynx: Oropharynx clear, no erythema, no thrush Neck: Supple, no adenopathy; thyroid symmetric, normal size, no bruits Lymphatic: No cervical, supraclavicular, axillary, or inguinal adenopathy Lungs: lungs clear to auscultation, percussion normal, good diaphragmatic excursion, no wheezing or rhonchi Heart: RRR without murmur, gallop, or rubs. No ectopy Abdomen: Abdomen soft, non-tender. Bowel sounds normal. No masses, organomegaly Extremities: No clubbing, cyanosis, or edema. Musculoskeletal: left wrist internal rotation Neuro: A and O x3. Cranial nerves II - XII grossly intact, facial droop on the left seems better, she has decreased sensation over the left side of her body. Some left sided neglect. Left hemiparesis. Laboratory tests WBC (k/uL) Date Value 04/16/2024 7.96 12/16/2022 7.24 09/17/2021 8.11 10/02/2020 8.54 09/21/2019 8.10 11/05/2018 9.15 04/03/2018 8.45 10/03/2017 8.13 02/17/2017 8.70 08/08/2016 8.85 02/09/2016 7.80 11/24/2015 13.19 Abs Neut (ANC) (k/uL) Date Value 09/17/2021 5.75 10/02/2020 5.64 09/21/2019 5.15 11/05/2018 6.04 04/03/2018 5.32 10/03/2017 5.27 02/17/2017 5.01 08/08/2016 5.77 02/09/2016 4.70 11/24/2015 9.34 Abs Neut (k/uL) Date Value 04/16/2024 5.38 12/16/2022 4.55 Hemoglobin (g/dL) Date Value 04/16/2024 13.9 12/16/2022 14.9 09/17/2021 14.2 10/02/2020 14.4 09/21/2019 14.1 11/05/2018 14.4 04/03/2018 13.4 10/03/2017 14.2 02/17/2017 14.5 08/08/2016 13.9 02/09/2016 13.8 11/24/2015 12.8 Platelet Count (k/uL) Date Value 04/16/2024 233 12/16/2022 241 09/17/2021 266 10/02/2020 274 09/21/2019 262 11/05/2018 310 04/03/2018 262 10/03/2017 280 02/17/2017 325 08/08/2016 284 02/09/2016 252 11/24/2015 248 Glucose (mg/dL) Date Value 04/16/2024 96 12/16/2022 91 09/17/2021 115 10/02/2020 135 09/21/2019 113 11/05/2018 110 04/03/2018 117 10/03/2017 138 02/17/2017 127 08/08/2016 83 02/09/2016 135 11/24/2015 126 Creatinine (mg/dL) Date Value 04/16/2024 0.60 12/16/2022 0.64 09/17/2021 0.62 10/02/2020 0.66 09/21/2019 0.56 11/05/2018 0.70 04/03/2018 0.64 10/03/2017 0.66 02/17/2017 0.68 08/08/2016 0.68 02/09/2016 0.59 11/24/2015 0.66 Calcium (mg/dL) Date Value 09/17/2021 9.6 10/02/2020 9.8 09/21/2019 9.2 11/05/2018 10.1 04/03/2018 9.3 10/03/2017 9.1 02/17/2017 9.7 08/08/2016 9.2 02/09/2016 9.5 11/24/2015 8.9 Calcium, Total (mg/dL) Date Value 04/16/2024 9.3 12/16/2022 10.1 M-Protein Concentration (gm/dL) Date Value 09/17/2021 0.00 09/21/2019 0.00 10/03/2017 0.00 08/16/2013 0.00 02/22/2013 0.00 01/25/2013 0.00 [place] Free, Serum (mg/L) Date Value 12/16/2022 27.6 09/17/2021 Unable to assay. Specimen hemolyzed. 10/02/2020 21.7 09/21/2019 19.0 11/05/2018 16.9 04/03/2018 17.7 10/03/2017 20.6 02/17/2017 24.7 08/08/2016 20.4 02/09/2016 17.2 07/24/2015 9.0 01/23/2015 7.6 08/16/2013 <3.2 02/22/2013 6.8 01/25/2013 7.3 Lambda Free, Serum (mg/L) Date Value 12/16/2022 20.6 09/17/2021 18.3 10/02/2020 20.2 09/21/2019 15.9 11/05/2018 14.9 04/03/2018 13.4 10/03/2017 15.2 02/17/2017 16.7 08/08/2016 12.7 02/09/2016 14.9 07/24/2015 15.5 01/23/2015 8.1 08/16/2013 10.0 02/22/2013 7.4 01/25/2013 8.2 MPA IgG, Serum (mg/dL) Date Value 09/17/2021 1,231 10/02/2020 1,207 09/21/2019 1,260 04/03/2018 1,140 10/03/2017 1,250 08/16/2013 787 02/22/2013 610 01/25/2013 680 MPA IgA, Serum (mg/dL) Date Value 09/17/2021 469 10/02/2020 446 09/21/2019 431 04/03/2018 391 10/03/2017 387 08/16/2013 315 02/22/2013 278 01/25/2013 309 MPA IgM, Serum (mg/dL) Date Value 09/17/2021 235 10/02/2020 224 09/21/2019 243 04/03/2018 203 10/03/2017 218 08/16/2013 149 02/22/2013 168 01/25/2013 214 MPA Result (no units) Date Value 12/16/2022 No M protein is identified. 09/17/2021 No M protein is identified. 10/02/2020 No M protein is identified. 09/21/2019 No M protein is identified. 04/03/2018 No M protein is identified. 10/03/2017 No M protein is identified. Amyloid organ involvement screens / follow up NT Pro BNP (pg/mL) Date Value 01/25/2013 33 Troponin T (ng/mL) Date Value 01/25/2013 <0.01 Alkaline Phosphatase (U/L) Date Value 04/16/2024 53 12/16/2022 59 09/17/2021 71 10/02/2020 86 09/21/2019 79 11/05/2018 76 04/03/2018 68 10/03/2017 76 02/17/2017 74 08/08/2016 77 02/09/2016 77 11/24/2015 64 07/24/2015 80 01/23/2015 71 09/19/2014 65 05/19/2014 75 01/18/2014 80 12/03/2013 97 10/18/2013 76 08/16/2013 71 05/21/2013 60 04/06/2013 63 02/22/2013 49 01/25/2013 51 12/28/2012 55 12/14/2012 62 MRI brain 09/21/19 IMPRESSION: Stable right sided supratentorial lesion compatible with a biopsy-proven amyloidoma, as compared to 11/05/2018. ASSESSMENT: 1. AL amyloidoma of PROFILE GRINDER. PLAN: 1. MRI is stable. Clinically doing well and no new symptoms. Labs reviewed - follow up light chains but all other labs today wnl. Continue observation off therapy for now. Needs 2 mg ativan prior to MRI's. Depression: Continue Celexa. Premature menopause: HRT. RTC 12 months with MRI. Plan was discussed with the patient and patient expressed understanding of the plan. Patient was seen and discussed in clinic with Staff Physician Dr. Mio Lynch MD, MPH PGY-IV Hematology/Oncology Fellow [facility] STAFF PHYSICIAN NOTE OF PERSONAL INVOLVEMENT IN CARE I have reviewed the progress note obtained and documented by the fellow and I personally participated in the fung components. I have discussed the case and management of the patient's care. The following comments revise or confirm relevant fung components of their note. IMPRESSION: This is a 53 year old female who presents with PROFILE GRINDER amyloidoma. PLAN: continue observation with imaging and labs at regular intervals. MRI today stable. Ongoing rehabiliation medicine evaluations as well. Mio Rogers MD documented in this encounter [facility] 04-16-2024 Note HNO ID: [id number] Author: MIO ROGERS MD Service: ? Author Type: Physician Type: Progress Notes Filed: 04/20/2024 10:14 Note Text: (Elements copied from prior note dated 09/17/2021, have been reviewed and updated where appropriate, and all reflect current assessment and medical decision-making during today's encounter, 04/16/2024) [facility] Monika Haskins is a 53 year old female patient. CC: AL amyloidoma of PROFILE GRINDER HPI: Monika Haskins is a 51 year old female who presents today for follow up of AL (lambda) amyloidoma of PROFILE GRINDER. Overall she is doing well. Left sided hemiparesis stable. MRIb on 04/16 with stable right cerebral hemisphere biopsy-proven amyloidoma compared to 12/16/2022. Treatment History: Cyclophosphamide 500 mg weekly 3 weeks on and 1 week off and dexamethasone 40 mg weekly. Start 12/02/12. Dexamethasone decreased to 12 mg weekly 08/06. Discontinued as of November 2013. Amyloid History: The patient states that she began to develop some difficulty with the use of her left leg. She eventually had evaluation for this and the etiology of the left leg weakness was thought to be due to a disc herniation. However she had progressive loss of function with spasticity of the left leg and this then progressed to also including the left arm and left side of her face. On November 04, 2012 well she underwent an MRI which identified a lesion in the deep white matter of the right parietal lobe adjacent to the lateral ventricle. She has undergone a stereotactic biopsy of this lesion. The pathology report documents amyloid deposition with associated gliosis and chronic inflammation. The [place] red stain showed evidence of globular and angiocentric deposits of amyloid material. Diagnosis confirmed by tandem mass spectometry. With regards to a history of inflammation, she states that with the of her son she had a complicated by a large intra-abdominal abscess. Review Of Systems: GENERAL:No fever, chills, sweats, night sweats or weight loss. HEENT:No changes in hearing or vision, no nose bleeds or other nasal problems, No odynophagia or dysphagia. + headaches NECK:Negative for lumps, goiter, pain and significant neck swelling RESPIRATORY: Negative for cough, wheezing or shortness of breath., No hemoptysis CARDIOVASCULAR: Negative for chest pain, leg swelling or palpitations. 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 NEUROLOGIC:See HPI SKIN:Negative for lesions, rash, and itching. PSYCHIATRIC: sleep and mood disturbance with dexamethasone HEMATOLOGIC/LYMPHATIC/IMMUNOLOGIC :bruising easily ENDOCRINE: Negative for cold or heat intolerance, polyuria, polydipsia and goiter. The remainder of the ROS was negative. Past medical history PAST MEDICAL HISTORY Diagnosis Date Deep venous thrombosis (HCC) right arm Foot drop left foot - ultimately thought to be dystonia Hypertension when sick after delivery of her baby 1 year ago Infection in abdomen (HCC) Pneumothorax Past surgical history PAST SURGICAL HISTORY Procedure Laterality Date , CLASSIC, IN-HOSP CARE Sep 14, 2011 CHOLECYSTECTOMY 2000 Allergies / intolerances ALLERGIES Allergen Reactions Morphine Hives Pt had a morphine injection and broke out in hives, with itching Medications iv contrast (will be provided with radiology test) MRI Brain Inject, intravenously, once for 1 dose.No IV access, insert saline lock prior to beginning of sedation, infusion, injection of imaging exam.Discontinue saline lock post exam. If Pt. has a central line or IVAD, may access for administration according to line specific nursing protocol.Once exam is complete flush line and de-access according to line specific nursing protocol in the MR contrast administration guidelines link LORazepam (ATIVAN) 1 mg tablet Take 1-2 tablets prior to MRI procedure. SEMAGLUTIDE SUBCUTANEOUS Inject 5 mg subcutaneously one time a week. baclofen 10 mg tablet Take 1 tablet by mouth three times a day. Estradiol (ESTRACE) 0.5 mg tablet Take 1 tablet by mouth once daily. onabotulinum toxin type A (BOTOX) 100 unit solr Injected every 3 months for spasticity as directed. Social history Social History Tobacco Use Smoking status: Never Smokeless tobacco: Never Substance Use Topics Alcohol use: Yes Comment: very very rarely Drug use: No Family history FAMILY HISTORY Problem Relation Age of Onset Heart Father Physical exam BP 126/69 Pulse 106 Temp 37.1 ?C (98.7 ?F) (Temporal) Resp 20 Ht 180.3 cm (5' 11 ) Wt 107.2 kg (236 lb 5.3 oz) LMP 09/19/2014 SpO2 98% BMI 32.96 kg/m? (more content not included)... [facility] 04-16-2024 Note HNO ID: [id number] Author: CAMILLA BRITT RN Service: Nursing Author Type: Registered Nurse Type: Progress Notes Filed: 04/16/2024 14:05 Note Text: Radiology Service Progress Note DATE OF SERVICE: April 16, 2024 TIME: 1:52 PM PATIENT WEIGHT: 224LBS PATIENT IDENTITY VERIFICATION COMPLETED USING TWO (2) STANDARD IDENTIFIERS: Name and Date of confirmed by patient verbally and Name and Date of confirmed by identification band. FALL SCREENING: Has the patient had 2 falls in the last year or 1 fall with injury or currently using an Ambulatory Assistive Device (Walker, Cane, Wheelchair, Crutches, etc.)? Yes, Patient High Risk for Falls What interventions were put in place to prevent falls during this visit? [place] Risk Wristband Applied PATIENT GENDER DATA: Female. status: : No status: NO. ALLERGIES: Reviewed and unchanged CONTRAST ALLERGY: No EXAM: MRI - CONTRAST TYPE: GROUP II IV SITE: Ambulatory: A peripheral IV was started in the Left antecubital site with a Angio cath: 22 gauge. IV SITE APPEARANCE: Clean,Dry and Intact SIGNATURE: Camilla Britt RN PATIENT NAME: Monika Haskins DATE: April 16, 2024 TIME: 1:52 PM [facility] 04-16-2024 History of Present illness Narrative Radiology Service Progress Note DATE OF SERVICE: April 16, 2024 TIME: 1:52 PM PATIENT WEIGHT: 224LBS PATIENT IDENTITY VERIFICATION COMPLETED USING TWO (2) STANDARD IDENTIFIERS: Name and Date of confirmed by patient verbally and Name and Date of confirmed by identification band. FALL SCREENING: Has the patient had 2 falls in the last year or 1 fall with injury or currently using an Ambulatory Assistive Device (Walker, Cane, Wheelchair, Crutches, etc.)? Yes, Patient High Risk for Falls What interventions were put in place to prevent falls during this visit? [place] Risk Wristband Applied PATIENT GENDER DATA: Female. status: : No status: NO. ALLERGIES: Reviewed and unchanged CONTRAST ALLERGY: No EXAM: MRI - CONTRAST TYPE: GROUP II IV SITE: Ambulatory: A peripheral IV was started in the Left antecubital site with a Angio cath: 22 gauge. IV SITE APPEARANCE: Clean,Dry and Intact SIGNATURE: Camilla Britt RN PATIENT NAME: Monika Haskins DATE: April 16, 2024 TIME: 1:52 PM Radiology Service Progress Note PATIENT NAME: Monika Haskins DATE OF SERVICE: April 16, 2024 TIME: 2:35 PM PATIENT IDENTITY VERIFICATION COMPLETED USING TWO (2) IDENTIFIERS: Name and Date of confirmed by patient verbally. FALL SCREENING: Has the patient had 2 falls in the last year or 1 fall with injury or currently using an Ambulatory Assistive Device (Walker, Cane, Wheelchair, Crutches, etc.)? Yes, Patient High Risk for Falls What interventions were put in place to prevent falls during this visit? [place] Risk Wristband Applied PATIENT GENDER DATA: Female. status: : No status: NO. PATIENT RELEVANT IMPLANT DATA REVIEWED: Yes PATIENT PRESENTS WITH AN IMPLANTABLE OR ATTACHED SENIOR PRIVATE CLIENT ADVISOR: No RADIOLOGY DEPARTMENT: MR; Exam(s) Completed: Head: Routine Brain PERIPHERAL IV DATA: Site assessment: Clean,Dry and Intact, Site disposition Left in for next appointment SIGNED BY: ELIA Argueta) April 16, 2024 2:35 PM documented in this encounter [facility] 04-16-2024 Note HNO ID: [id number] Author: SEDA ARCEO RT (R) Service: Radiology Author Type: Technologist Type: Progress Notes Filed: 04/16/2024 14:35 Note Text: Radiology Service Progress Note PATIENT NAME: Monika Haskins DATE OF SERVICE: April 16, 2024 TIME: 2:35 PM PATIENT IDENTITY VERIFICATION COMPLETED USING TWO (2) IDENTIFIERS: Name and Date of confirmed by patient verbally. FALL SCREENING: Has the patient had 2 falls in the last year or 1 fall with injury or currently using an Ambulatory Assistive Device (Walker, Cane, Wheelchair, Crutches, etc.)? Yes, Patient High Risk for Falls What interventions were put in place to prevent falls during this visit? [place] Risk Wristband Applied PATIENT GENDER DATA: Female. status: : No status: NO. PATIENT RELEVANT IMPLANT DATA REVIEWED: Yes PATIENT PRESENTS WITH AN IMPLANTABLE OR ATTACHED SENIOR PRIVATE CLIENT ADVISOR: No RADIOLOGY DEPARTMENT: MR; Exam(s) Completed: Head: Routine Brain PERIPHERAL IV DATA: Site assessment: Clean,Dry and Intact, Site disposition Left in for next appointment SIGNED BY: RT Ellie(R) April 16, 2024 2:35 PM [facility] 03-23-2024 Hospital Discharge instructions Patient Education 03/23/2024 15:13:48 Urinary Incontinence Urinary Incontinence Urinary incontinence refers to a condition in which a person is unable to control where and when to pass urine. A person with this condition will urinate involuntarily. This means that the person urinates when he or she does not mean to. What are the causes? This condition may be caused by: Medicines. Infections. Constipation. Overactive bladder muscles. Weak bladder muscles. Weak pelvic floor muscles. These muscles provide support for the bladder, intestine, and, in women, the uterus. Enlarged prostate in men. The prostate is a gland near the bladder. When it gets too big, it can pinch the urethra. With the urethra blocked, the bladder can weaken and lose the ability to empty properly. Surgery. Emotional factors, such as anxiety, stress, or post-traumatic stress disorder (PTSD). Spinal cord injury, nerve injury, or other neurological conditions. Pelvic organ prolapse. This happens in women when organs move out of place and into the vagina. This movement can prevent the bladder and urethra from working properly. What increases the risk? The following factors may make you more likely to develop this condition: Age. The older you are, the higher the risk. Obesity. Being physically inactive. and childbirth. Menopause. Diseases that affect the nerves or spinal cord. Long-term, or chronic, coughing. This can increase pressure on the bladder and pelvic floor muscles. What are the signs or symptoms? Symptoms may vary depending on the type of urinary incontinence you have. They include: A sudden urge to urinate, and passing urine involuntarily before you can get to a bathroom (urge incontinence). Suddenly passing urine when doing activities that force urine to pass, such as coughing, laughing, exercising, or sneezing (stress incontinence). Needing to urinate often but urinating only a small amount, or constantly dribbling urine (overflow incontinence). Urinating because you cannot get to the bathroom in time due to a physical disability, such as arthritis or injury, or due to a communication or thinking problem, such as Alzheimer's disease (functional incontinence). How is this diagnosed? This condition may be diagnosed based on: Your medical history. A physical exam. Tests, such as: ?Urine tests. ?X-rays of your kidney and bladder. ?Ultrasound. ?CT scan. ?Cystoscopy. In this procedure, a health care provider inserts a tube with a light and camera (cystoscope) through the urethra and into the bladder to check for problems. ?Urodynamic testing. These tests assess how well the bladder, urethra, and sphincter can store and release urine. There are different types of urodynamic tests, and they vary depending on what the test is measuring. To help diagnose your condition, your health care provider may recommend that you keep a log of when you urinate and how much you urinate. How is this treated? Treatment for this condition depends on the type of incontinence that you have and its cause. Treatment may include: Lifestyle changes, such as: ?Quitting smoking. ?Maintaining a healthy weight. ?Staying active. Try to get 150 minutes of moderate-intensity exercise every week. Ask your health care provider which activities are safe for you. ?Eating a healthy diet. ?Avoid high-fat foods, like fried foods. ?Avoid refined carbohydrates like white bread and white rice. ?Limit how much alcohol and caffeine you drink. ?Increase your fiber intake. Healthy sources of fiber include beans, whole grains, and fresh fruits and vegetables. Behavioral changes, such as: ?Pelvic floor muscle exercises. ?Bladder training, such as lengthening the amount of time between bathroom breaks, or using the bathroom at regular intervals. ?Using techniques to suppress bladder urges. This can include distraction techniques or controlled breathing exercises. Medicines, such as: ?Medicines to relax the bladder muscles and prevent bladder spasms. ?Medicines to help slow or prevent the growth of a man's prostate. ?Botox injections. These can help relax the bladder muscles. Treatments, such as: ?Using pulses of electricity to help change bladder reflexes (electrical nerve stimulation). ?For women, using a diploma medical assistant to prevent urine leaks. This is a small, tampon-like, disposable device that is inserted into the urethra. ?Injecting collagen or carbon beads (bulking agents) into the urinary sphincter. These can help thicken tissue and close the bladder opening. ?Surgery. Follow these instructions at home: Lifestyle Limit alcohol and caffeine. These can fill your bladder quickly and irritate it. Keep yourself clean to help prevent odors and skin damage. Ask your health care provider about special skin creams and cleansers that can protect the skin from urine. Consider wearing pads or adult diapers. Make sure to change them regularly, and always change them right after experiencing incontinence. General instructions Take [id number] and prescription medicines only as told by your health care provider. Use the bathroom about every 3 4 hours, even if you do not feel the need to urinate. Try to empty your bladder completely every time. After urinating, wait a minute. Then try to urinate again. Make sure you are in a relaxed position while urinating. If your incontinence is caused by nerve problems, keep a log of the medicines you take and the times you go to the bathroom. Keep all follow-up visits. This is important. Where to find more information National [place] of Diabetes and Digestive and Kidney Diseases: www.niddk.nih.gov [place] [employer]: www.urologyhealth.org Contact a health care provider if: You have pain that gets worse. Your incontinence gets worse. Get help right away if: You have a fever or chills. You are unable to urinate. You have redness in your groin area or down your legs. Summary Urinary incontinence refers to a condition in which a person is unable to control where and when to pass urine. This condition may be caused by medicines, infection, weak bladder muscles, weak pelvic floor muscles, enlargement of the prostate (in men), or surgery. Factors such as older age, obesity, and childbirth, menopause, neurological diseases, and chronic coughing may increase your risk for developing this condition. Types of urinary incontinence include urge incontinence, stress incontinence, overflow incontinence, and functional incontinence. This condition is usually treated first with lifestyle and behavioral changes, such as quitting smoking, eating a healthier diet, and doing regular pelvic floor exercises. Other treatment options include medicines, bulking agents, medical devices, electrical nerve stimulation, or surgery. This information is not intended to replace advice given to you by your health care provider. Make sure you discuss any questions you have with your health care provider. Document Revised: 06/15/2021 Document Reviewed: 06/15/2021 [employer] Patient Education 2022 [employer]. 03/23/2024 15:13:47 Overactive Bladder, Adult Overactive Bladder, Adult Overactive bladder is a condition in which a person has a sudden and frequent need to urinate. A person might also leak urine if he or she cannot get to the bathroom fast enough (urinary incontinence). Sometimes, symptoms can interfere with work or social activities. What are the causes? Overactive bladder is associated with poor nerve signals between your bladder and your brain. Your bladder may get the signal to empty before it is full. You may also have very sensitive muscles that make your bladder squeeze too soon. This condition may also be caused by other factors, such as: Medical conditions: ?Urinary tract infection. ?Infection of nearby tissues. ?Prostate enlargement. ?Bladder stones, inflammation, or tumors. ?Diabetes. ?Muscle or nerve weakness, especially from these conditions: ?A spinal cord injury. ?Stroke. ?Multiple sclerosis. ?Parkinson's disease. Other causes: ?Surgery on the uterus or urethra. ?Drinking too much caffeine or alcohol. ?Certain medicines, especially those that eliminate extra fluid in the body (diuretics). ?Constipation. What increases the risk? You may be at greater risk for overactive bladder if you: Are an older adult. Smoke. Are going through menopause. Have prostate problems. Have a neurological disease, such as stroke, dementia, Parkinson's disease, or multiple sclerosis (MS). Eat or drink alcohol, spicy food, caffeine, and other things that irritate the bladder. Are overweight or obese. What are the signs or symptoms? Symptoms of this condition include a sudden, strong urge to urinate. Other symptoms include: Leaking urine. Urinating 8 or more times a day. Waking up to urinate 2 or more times overnight. How is this diagnosed? This condition may be diagnosed based on: Your symptoms and medical history. A physical exam. Blood or urine tests to check for possible causes, such as infection. You may also need to see a health care provider who specializes in urinary tract problems. This is called a urologist. How is this treated? Treatment for overactive bladder depends on the cause of your condition and whether it is mild or severe. Treatment may include: Bladder training, such as: ?Learning to control the urge to urinate by following a schedule to urinate at regular intervals. ?Doing Kegel exercises to strengthen the pelvic floor muscles that support your bladder. Special devices, such as: ?Biofeedback. This uses sensors to help you become aware of your body's signals. ?Electrical stimulation. This uses electrodes placed inside the body (implanted) or outside the body. These electrodes send gentle pulses of electricity to strengthen the nerves or muscles that control the bladder. ?Women may use a plastic device, called a pessary, that fits into the vagina and supports the bladder. Medicines, such as: ?Antibiotics to treat bladder infection. ?Antispasmodics to stop the bladder from releasing urine at the wrong time. ?Tricyclic antidepressants to relax bladder muscles. ?Injections of botulinum toxin type A directly into the bladder tissue to relax bladder muscles. Surgery, such as: ?A device may be implanted to help manage the nerve signals that control urination. ?An electrode may be implanted to stimulate electrical signals in the bladder. ?A procedure may be done to change the shape of the bladder. This is done only in very severe cases. Follow these instructions at home: Eating and drinking Make diet or lifestyle changes recommended by your health care provider. These may include: ?Drinking fluids throughout the day and not only with meals. ?Cutting down on caffeine or alcohol. ?Eating a healthy and balanced diet to prevent constipation. This may include: ?Choosing foods that are high in fiber, such as beans, whole grains, and fresh fruits and vegetables. ?Limiting foods that are high in fat and processed sugars, such as fried and sweet foods. Lifestyle Lose weight if needed. Do not use any products that contain nicotine or tobacco. These include cigarettes, chewing tobacco, and vaping devices, such as e-cigarettes. If you need help quitting, ask your health care provider. General instructions Take mpcc-oal-fyerctz and prescription medicines only as told by your health care provider. If you were prescribed an antibiotic medicine, take it as told by your health care provider. Do not stop taking the antibiotic even if you start to feel better. Use any implants or pessary as told by your health care provider. If needed, wear pads to absorb urine leakage. Keep a log to track how much and when you drink, and when you need to urinate. This will help your health care provider monitor your condition. Keep all follow-up visits. This is important. Contact a health care provider if: You have a fever or chills. Your symptoms do not get better with treatment. Your pain and discomfort get worse. You have more frequent urges to urinate. Get help right away if: You are not able to control your bladder. Summary Overactive bladder refers to a condition in which a person has a sudden and frequent need to urinate. Several conditions may lead to an overactive bladder. Treatment for overactive bladder depends on the cause and severity of your condition. Making lifestyle changes, doing Kegel exercises, keeping a log, and taking medicines can help with this condition. This information is not intended to replace advice given to you by your health care provider. Make sure you discuss any questions you have with your health care provider. Document Revised: 07/30/2021 Document Reviewed: 07/30/2021 [employer] Patient Education 2022 [employer]. 03/23/2024 15:13:46 Kegel Exercises Kegel Exercises Kegel exercises can help strengthen your pelvic floor muscles. The pelvic floor is a group of muscles that support your rectum, small intestine, and bladder. In females, pelvic floor muscles also help support the uterus. These muscles help you control the flow of urine and stool (feces). Kegel exercises are painless and simple. They do not require any equipment. Your provider may suggest Kegel exercises to: Improve bladder and bowel control. Improve sexual response. Improve weak pelvic floor muscles after surgery to remove the uterus (hysterectomy) or after , in females. Improve weak pelvic floor muscles after prostate gland removal or surgery, in males. Kegel exercises involve squeezing your pelvic floor muscles. These are the same muscles you squeeze when you try to stop the flow of urine or keep from passing gas. The exercises can be done while sitting, standing, or lying down, but it is best to vary your position. Ask your health care provider which exercises are safe for you. Do exercises exactly as told by your health care provider and adjust them as directed. Do not begin these exercises until told by your health care provider. Exercises How to do Kegel exercises: 1.Squeeze your pelvic floor muscles tight. You should feel a tight lift in your rectal area. If you are a female, you should also feel a tightness in your vaginal area. Keep your stomach, buttocks, and legs relaxed. 2.Hold the muscles tight for up to 10 seconds. 3.Breathe normally. 4.Relax your muscles for up to 10 seconds. 5.Repeat as told by your health care provider. Repeat this exercise daily as told by your health care provider. Continue to do this exercise for at least 4 6 weeks, or for as long as told by your health care provider. You may be referred to a physical therapist who can help you learn more about how to do Kegel exercises. Depending on your condition, your health care provider may recommend: Varying how long you squeeze your muscles. Doing several sets of exercises every day. Doing exercises for several weeks. Making Kegel exercises a part of your regular exercise routine. This information is not intended to replace advice given to you by your health care provider. Make sure you discuss any questions you have with your health care provider. Document Revised: 03/21/2022 Document Reviewed: 03/21/2022 [employer] Patient Education 2022 [employer]. Follow Up Care 03/05/2024 10:45:48 With:DIANA Case APRN, AURELIO Del Castillo, URL Address: When: Unknown Comments:8 wks w/ PVR [facility] 02-18-2024 Note HNO ID: [id number] Author: PATRICK BUSTAMANTE MD Service: ? Author Type: Physician Type: Progress Notes Filed: 02/18/2024 13:36 Note Text: BOTULINUM TOXIN THERAPY - Informed consent was signed on 11/12/2023. Patient accompanied by: No one. Current complaints / history since last visit: most recent botulinum toxin injections on 11/12/2023. She reports that botox injections were effective with less stiffness and improved range of motion. There was better positioning. The left arm did not lock. It was easier to open the left hand. She has occasional spasms in the left arm. Oral antispasticity medciations: Baclofen 10 mg three times daily Illnesses / hospitalizations since the last visit: No Other updates: Her first grandchild is due in July 2024 Anticoagulation: No Home stretching/exercise routine: She performs stretching exercises daily PT/OT: She is in physical and occupational therapies BT therapy effective? Yes - stiffness, pain/discomfort, other and ease of care (range of motion) Duration of benefit: 10 weeks Side effects: No Spasm scale: 2=Infrequent full spasms occuring less than once per hour Pain related to the purpose of the visit: Yes LOCATION: Left arm and hip PAIN SCALE: 2 on a scale of 0-10 PAIN CHARACTER: aching and dull DURATION: (How long have you had the pain?) Several years FREQUENCY: (How often does the pain occur?) Occurs constantly Patient Entered Data PROMIS No data to display Spasticity NRS 11/12/2023 -- Spasm Scale 2=Infrequent full spasms occuring less than once per hour Spasm Scale - Trendable Number 2 Spasm Scale No data to display Global Impression of Change No data to display Nutritional status: appetite is good, weight is stable, swallowing with no problems Driving issues: No issues per patient Safety concerns regarding living situations and safety at home: No At risk for falling: Yes, frequency once a week, no injuries Examination: Strength Right Left Shoulder abduction 5 2+ Elbow flexion 5 1 Elbow extension 5 1+ Wrist extension 5 0 Hip flexion 5 3 Knee flexion 5 2 Knee extension 5 4 Plantarflexion 5 Dorsiflexion 5 Strength: She is wearing left AFO. Spasticity Right Left Shoulder 0 3 Elbow flexors 0 2 Elbow extensors 0 1+ Wrist flexors 0 0 Wrist extensors 0 1+ Finger flexors 0 3 Finger extensors 0 0 Hip adductors 0 2 Knee extensors 0. 1 Knee flexors 0 0 Plantarflexors 0 Modified Francine Scale 0 - No increase in tone 1 - Slight increase in tone (catch and release at end of ROM) 1+ - Slight increase in tone, manifested by a catch, followed by minimal resistance throughout remainder (less than half of ROM) 2 - Marked increase in tone through most of the ROM, but affected part(s) easily moved 3 - Considerable increase in tone; passive movement difficult 4 - Affected part(s) rigid in flexion or extension She is wearing left AFO Spasms observed: RUE: no right upper extremity spasms LUE: no left upper extremity spasms RLE: no right lower extremity spasms LLE: no left lower extremity spasms [facility] MS TIMED 25 FOOT WALK: Not tested. Assistance required: crutches (She uses a forearm crutch) Ambulation Index Score: 4 - Unilateral support and 25 ft <20 sec OR no support and 25 ft > 20 sec UNIVERSAL PROTOCOL / SAFETY CHECKLIST Procedure to be Performed: Botulinum Toxin Injections Sign In: A Moment of CARE was completed. Personnel directly involved with the procedure wore the appropriate PPE (Personal Protective Equipment). Special equipment: EMG Patient/Surrogate Stated/Verified: PATIENT VERIFIED(optional for EMERGENT procedures): Patient name, Date of , Relevant allergies, and The intended procedure Time Out Communication: Intended patient and procedure match the source documents. Consent documented and matches the intended procedure. Correct side/site marked and visible. Medications required for procedure verified. Sign Out: SIGN OUT (optional for EMERGENT procedures): LYN Bustamante MD The risks, benefits and alternatives of the procedure were explained. Written Consent Obtained: yes - 11/12/2023 Clinician(s) performing the injections: Patrick Bustamante MD Equipment Processer Storage: Leidy Rico LPN, Danielle Snyder RN and MISHA Gallegos The patient was positioned lying supine on the exam table. Brand of toxin injected: Botox. After skin preparation with alcohol, a total dose of 200 units were injected as follows: Muscle Limb/Side Dose Guidance Comments Biceps LUE 50 units EMG 2 sites Triceps LUE 50 units EMG 2 sites FDS LUE 50 units EMG 1 sites FCR LUE 50 units EMG 1 sites Total Dose: 200 0 units discarded. Dilution: 100 units / 2 ml LOT #: [id number] Expiration Date: Month: 5 Year: 26 The injections were well tolerated. Minimal bleeding occurred at the injection sites. 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 [facility] 01-21-2024 Note HNO ID: [id number] Author: PATRICK BUSTAMANTE MD Service: ? Author Type: Physician Type: Progress Notes Filed: 01/21/2024 12:23 Note Text: REASON FOR VISIT: routine Patient accompanied by: No one. PRINCIPAL NEUROLOGIC DIAGNOSIS: Tumefactive variant of cerebral amyloid angiopathy HISTORY OF ILLNESS: Date of onset: 2011 Narrative Describing Problems since last visit: The patient was last seen in spasticity clinic for botulinum toxin injections on 11/12/2023. The following muscles were injected with 200 units of botox: Muscle Limb/Side Dose Guidance Comments Biceps LUE 50 units EMG 2 sites Triceps LUE 50 units EMG 2 sites FDS LUE 50 units EMG 1 sites FCR LUE 50 units EMG 1 sites She reports that botox injections were effective with less stiffness and pain with improved range of motion. She notes that there is better positioning in the left arm. Her arm is more relaxed with walking. She has occasional spasms. She takes Baclofen 10 mg twice daily. She performs stretching exercises daily and is in physical therapy twice a week. She is also swimming. Patient Entered Data Flirq No flowsheet data found. Spasticity NRS 11/12/2023 Spasm Scale 2=Infrequent full spasms occuring less than once per hour Spasm Scale - Trendable Number 2 Spasm Scale No flowsheet data found. Global Impression of Change No flowsheet data found. Pain related to the purpose of the visit: Yes LOCATION: Left shoulder PAIN SCALE: 2 on a scale of 0-10 PAIN CHARACTER: aching and dull DURATION: (How long have you had the pain?) Several years FREQUENCY: (How often does the pain occur?) Occurs constantly Bowel function: Normal Bladder function: Neurogenic bladder, botox to bladder every 6-9 months, frequency, urgency, incontinence improved with botox injections, no recent UTIs Nutritional status: appetite is good, weight is stable, swallowing with no problems Driving issues: No issues per patient Safety concerns regarding living situations and safety at home: No At risk for falling: Yes, frequency once a week, no injuries Diagnostic Testing since last visit: No recent studies Labs reviewed: None pertinent Domestic Violence: Have you been hit, kicked, punched, or otherwise hurt by someone within the past year? No If so, by whom? Review of Systems Constitutional: Negative. Skin: Negative. HENT: Negative. Musculoskeletal: Positive for muscle weakness. Eyes: Negative. Cardiovascular: Negative. Gastrointestinal: Negative. Genitourinary: Positive for frequent urination, incontinence and urinary urgency. Hematologic/Lymphatic: Positive for bruises/bleeds easily. Allergic/Immunologic: Negative. Psychiatric: Negative. All other systems reviewed and are negative. PHYSICAL EXAMINATION: Mental Status: There were no deficits of cognition, language or prosody on interview. Formal DIGITAL ASSISTANT testing was not performed today. Cranial Nerves: Visual Acuity OU: 20/30 Corrected: No CN III, IV, Pursuit and saccadic eye movement are intact without nystagmus CN V-XII facial sensation was intact facial movements were intact hearing was intact to finger rub palatal movements were intact tongue movements were intact there was no dysarthria shoulder shrug was decreased on the left Strength Right Left Shoulder abduction 5 2+ Elbow flexion 5 1 Elbow extension 5 1+ Wrist extension 5 0 Hip flexion 5 3 Knee flexion 5 2 Knee extension 5 4 Plantarflexion 5 Dorsiflexion 5 Strength: She is wearing left AFO. Spasticity Right Left Shoulder 0 2 Elbow flexors 0 2 Elbow extensors 0 1+ Wrist flexors 0 0 Wrist extensors 0 1+ Finger flexors 0 3 Finger extensors 0 Hip adductors 0 2 Knee extensors 0. 1 Knee flexors 0 0 Plantarflexors 0 Modified Francine Scale 0 - No increase in tone 1 - Slight increase in tone (catch and release at end of ROM) 1+ - Slight increase in tone, manifested by a catch, followed by minimal resistance throughout remainder (less than half of ROM) 2 - Marked increase in tone through most of the ROM, but affected part(s) easily moved 3 - Considerable increase in tone; passive movement difficult 4 - Affected part(s) rigid in flexion or extension She is wearing left AFO Spasms observed: RUE: no right upper extremity spasms LUE: no left upper extremity spasms RLE: no right lower extremity spasms LLE: no left lower extremity spasms [facility] MS TIMED 25 FOOT WALK: Not tested. Assistance required: crutches (She uses a forearm crutch) Ambulation Index Score: 4 - Unilateral support and 25 ft <20 sec OR no support and 25 ft > 20 sec Cerebellar: finger to nose testing was without dysmetria on the right. She was unable to perform on the left. Heel to rodriguez testing was without dysmetria. Fine movements were intact in the right hand. She was unable to perform on the left. Sensation: Light touch, vibration and proprioception were intact. Pinprick was not (more content not included)... [facility] 01-21-2024 History of Present illness Narrative REASON FOR VISIT: routine Patient accompanied by: No one. PRINCIPAL NEUROLOGIC DIAGNOSIS: Tumefactive variant of cerebral amyloid angiopathy HISTORY OF ILLNESS: Date of onset: 2011 Narrative Describing Problems since last visit: The patient was last seen in spasticity clinic for botulinum toxin injections on 11/12/2023. The following muscles were injected with 200 units of botox: Muscle Limb/Side Dose Guidance Comments Biceps LUE 50 units EMG 2 sites Triceps LUE 50 units EMG 2 sites FDS LUE 50 units EMG 1 sites FCR LUE 50 units EMG 1 sites She reports that botox injections were effective with less stiffness and pain with improved range of motion. She notes that there is better positioning in the left arm. Her arm is more relaxed with walking. She has occasional spasms. She takes Baclofen 10 mg twice daily. She performs stretching exercises daily and is in physical therapy twice a week. She is also swimming. Patient Entered Data Flirq No flowsheet data found. Spasticity NRS 11/12/2023 Spasm Scale 2=Infrequent full spasms occuring less than once per hour Spasm Scale - Trendable Number 2 Spasm Scale No flowsheet data found. Global Impression of Change No flowsheet data found. Pain related to the purpose of the visit: Yes LOCATION: Left shoulder PAIN SCALE: 2 on a scale of 0-10 PAIN CHARACTER: aching and dull DURATION: (How long have you had the pain?) Several years FREQUENCY: (How often does the pain occur?) Occurs constantly Bowel function: Normal Bladder function: Neurogenic bladder, botox to bladder every 6-9 months, frequency, urgency, incontinence improved with botox injections, no recent UTIs Nutritional status: appetite is good, weight is stable, swallowing with no problems Driving issues: No issues per patient Safety concerns regarding living situations and safety at home: No At risk for falling: Yes, frequency once a week, no injuries Diagnostic Testing since last visit: No recent studies Labs reviewed: None pertinent Domestic Violence: Have you been hit, kicked, punched, or otherwise hurt by someone within the past year? No If so, by whom? Review of Systems Constitutional: Negative. Skin: Negative. HENT: Negative. Musculoskeletal: Positive for muscle weakness. Eyes: Negative. Cardiovascular: Negative. Gastrointestinal: Negative. Genitourinary: Positive for frequent urination, incontinence and urinary urgency. Hematologic/Lymphatic: Positive for bruises/bleeds easily. Allergic/Immunologic: Negative. Psychiatric: Negative. All other systems reviewed and are negative. PHYSICAL EXAMINATION: Mental Status: There were no deficits of cognition, language or prosody on interview. Formal DIGITAL ASSISTANT testing was not performed today. Cranial Nerves: Visual Acuity OU: 20/30 Corrected: No CN III, IV, Pursuit and saccadic eye movement are intact without nystagmus CN V-XII facial sensation was intact facial movements were intact hearing was intact to finger rub palatal movements were intact tongue movements were intact there was no dysarthria shoulder shrug was decreased on the left Strength Right Left Shoulder abduction 5 2+ Elbow flexion 5 1 Elbow extension 5 1+ Wrist extension 5 0 Hip flexion 5 3 Knee flexion 5 2 Knee extension 5 4 Plantarflexion 5 Dorsiflexion 5 Strength: She is wearing left AFO. Spasticity Right Left Shoulder 0 2 Elbow flexors 0 2 Elbow extensors 0 1+ Wrist flexors 0 0 Wrist extensors 0 1+ Finger flexors 0 3 Finger extensors 0 Hip adductors 0 2 Knee extensors 0. 1 Knee flexors 0 0 Plantarflexors 0 Modified Francine Scale 0 - No increase in tone 1 - Slight increase in tone (catch and release at end of ROM) 1+ - Slight increase in tone, manifested by a catch, followed by minimal resistance throughout remainder (less than half of ROM) 2 - Marked increase in tone through most of the ROM, but affected part(s) easily moved 3 - Considerable increase in tone; passive movement difficult 4 - Affected part(s) rigid in flexion or extension She is wearing left AFO Spasms observed: RUE: no right upper extremity spasms LUE: no left upper extremity spasms RLE: no right lower extremity spasms LLE: no left lower extremity spasms [facility] MS TIMED 25 FOOT WALK: Not tested. Assistance required: crutches (She uses a forearm crutch) Ambulation Index Score: 4 - Unilateral support and 25 ft <20 sec OR no support and 25 ft > 20 sec Cerebellar: finger to nose testing was without dysmetria on the right. She was unable to perform on the left. Heel to rodriguez testing was without dysmetria. Fine movements were intact in the right hand. She was unable to perform on the left. Sensation: Light touch, vibration and proprioception were intact. Pinprick was not tested. 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 Improvement in spasticity is noted on examination. We will repeat botox injections on 02/18/2024, adding the left upper trapezius muscle and increasing the total dose to 300 units. She is to continue to perform stretching exercises daily and physical therapy. We will increase baclofen to 10 mg three times daily. Educational materials provided: None Checklist for botulinum toxin or intrathecal baclofen therapy Severe spinal deformity: no History of trauma to the spine: no History of spinal surgery: no History of seizures: no Pacemaker: no Anticoagulation: no Bleeding disorder: no Ability to provide consent: yes Allergy to lidocaine: no Allergy to betadine: no Transportation problems: no Other: no MS BT PRE AUTH PLAN 1. Symptomatic medications: Increased baclofen to 10 mg three times daily. 2. Tests and referrals: No 3. Physical / occupational therapy: Continue to perform stretching exercises daily and in physical therapy. 4. Follow-up: Repeat botox injections on 02/18/2024, 300 units, transfers independently. The patient was instructed to call should any problems occur in the meantime. 5. Note copied to Mio Rogers MD via [employer]. Time spent with patient: 40 minutes. More than 50% of the face to face time was dedicated to education and counseling regarding treatment options for spasticity. Patrick Bustamante MD documented in this encounter [facility] 01-21-2024 Instructions Patrick Bustamante MD - 01/21/2024 9:21 AM EST Baclofen 10 mg tablets Take 1 tablet in the morning, afternoon and at bedtime. Contact the office with any questions or concerns (CoTweet or [phone]). Patrick Bustamante MD documented in this encounter [facility] 10-27-2023 Miscellaneous Notes The following approved medication requests have been transmitted electronically. Requested Prescriptions Signed Prescriptions Disp Refills baclofen 10 mg tablet 180 tablet 3 Sig: Take 1 tablet by mouth two times a day. Authorizing Provider: VERONIKA HYATT PA-C Last seen by Dr Bustamante on 09/03/23: Continue baclofen 5 mg as needed Patient Comment: i need my 10 mg i have been taking tewice acday and its helping SPECIALTY CARE COORDINATION QUICK NOTE Called patient Patient identified by name and date of : Yes She states she told provider wrong MG at appointment which is why it shows as 5 MG She is using Baclofen 10 mg every night and will occasionally take 10 mg in the morning if my tone is acting up Will change to Baclofen 10 mg twice a day Script updated; pending she verbalized understanding and agrees with plan No further concerns Source : mychart from patient requesting refill. Delivery : e-script Requested Prescriptions Pending Prescriptions Disp Refills baclofen 5 mg tablet Sig: Take 1 tablet by mouth as needed. DX : Patient last seen 09/03/2023 Next Appointment : 11/12/2023 Tiffany Santillan documented in this encounter [facility] 09-03-2023 History of Present illness Narrative REFERRAL SOURCE: Mio Rogers [id number] [facility] [id number] FOLLOWED BY: Erica Mercedes MD REASON FOR CONSULTATION: rehabilitation consult. PRINCIPAL NEUROLOGIC DIAGNOSIS: Tumefactive variant of cerebral amyloid angiopathy HISTORY OF ILLNESS: Date of Onset: 2011 BRIEF NARRATIVE DESCRIBING HISTORY: This 52 year old right handed female was referred by Mio Rogers MD for a spasticity consult. The patient was accompanied by no one. Medical records from [facility] were reviewed. Patient was in her regular state of health when in 2011, after of her second child. After delivery, she was hospitalized with an abdominal abscess and during that hospitalization she developed a pneumothorax and right UE DVT. She was discharged home and noted left leg weakness with difficulty walking. She was thought to have a herniated disc. Symptoms progressed over 1 year and then she noticed weakness and increased stiffness in the left arm. She had a MRI of brain that showed lesion in the posterior right frontal white matter. She had a brain biopsy that showed amyloid deposition and chronic inflammation. She was treated with high dose dexamethasone and Cytoxan. She complains of severe spasticity in the left arm and leg. She has occasional spasms in the left arm and leg. She notes that her toes curl on the left. She had botox injections several years ago at [facility] with good results. She stopped the injections as spasticity improved and she felt that she did not need it. She receives botox to the bladder and last had injections on 07/08/2023, 200 units. She will have next injections in September 2023. She takes baclofen 5 mg as needed (takes occasionally). She has tolerated low dose baclofen. She has tried higher doses with increased sedation and falls. She tried tizanidine and flexeril several years ago and dose not remember why it was discontinued. She She performs stretching exercises daily and walks at least 1 mile daily. She is in physical and occupational therapies. She swims once a week. Symptoms/Functional Limitations Related to Spasticity: Stiffness: Stiffness in the left arm and leg with curling of toes Spasms: She has occasional spasms and spasms with stimulation. Spasticity interferes with sleep: Sometimes Spasticity interferes with function: Yes, ADLs and ambulation SPASM SCALE: Occasional spontaneous spasms Pain related to the purpose of the visit: Yes LOCATION: Left shoulder PAIN SCALE: 2 on a scale of 0-10 PAIN CHARACTER: aching and dull DURATION: (How long have you had the pain?) Several years FREQUENCY: (How often does the pain occur?) Occurs constantly Patient Entered Data PROMIS No flowsheet data found. Spasticity NRS No flowsheet data found. Spasm Scale No flowsheet data found. Global Impression of Change No flowsheet data found. Treatments for Spasticity and Results of Treatments: Stretching/exercise: She performs stretching exercises daily. She is in physical and occupational therapies. She walks at least 1 mile daily. She swims once a week. Oral medications: Flexeril and tizanidine discontinued but unable to determine why it was discontinued, baclofen 5 mg as needed with some improvement Botulinum toxin injections: Several years ago with improvement Intrathecal baclofen therapy: No Other: No Evolution of disability: Gait disturbance since 2011, started using cane in 2013 in community, uses forearm crutch, independent or uses a scooter at home, uses scooter in the community with prolonged distances. Current functional status: She is independent in feeding (set up). She is independent in dressing and bathing. She uses a handrail to maneuver stairs. She uses nydia bars to enter/exit shower and uses a shower bench. She holds onto objects with sit to stand from beds, chairs and toilets. She is independent in grooming. Mood: Good , no depression, no suicidal thoughts Memory: No issues Bowel: Normal Bladder: Neurogenic bladder, botox to bladder every 6-9 months, frequency, urgency, incontinence improved with botox injections, no recent UTIs Fatigue: Yes, occasionally with ADLs Current functional status: Incapacity Status Scale Stair Climbin Ambulation: 2 Toilet/Chair/Bed Transfer: 2 Bowel Function: 0 Bladder Function: 2 Bathin Dressin Groomin Feedin Vision: 0 Speech and Hearin Medical Problems: 1 Mood and Thought Disturbance: 0 Mentation: 0 Fatigability: 2 Sexual Function: 2 Total score: 17 Skin: Intact Nutritional status: appetite is good, weight loss of 150 lbs over the last 2 years, actively trying to lose weight, swallowing with no problems Driving issues: No issues per patient Safety concerns regarding living situations and safety at home: No, she lives with her significant other and child in a 2 level home. She resides on the main level. There are 2 steps at the main level and 17 stairs to the second level with handrail. She has 2 biological sons and a step son. Risk of falls: Yes, frequency at least once a week, has had fractures of left leg and hand, concussion for injuries (not recently). Review of Systems Constitutional: Negative. Skin: Negative. HENT: Negative. Musculoskeletal: Positive for muscle weakness. Eyes: Negative. Cardiovascular: Negative. Gastrointestinal: Negative. Endocrine: Negative. Genitourinary: Positive for frequent urination, incontinence and urinary urgency. Hematologic/Lymphatic: Positive for bruises/bleeds easily. Allergic/Immunologic: Negative. Psychiatric: Negative. All other systems reviewed and are negative. Review of Diagnostic Studies: No recent studies Labs Reviewed: CBC with diff: WBC 7.24 12/16/2022 RBC 5.27 12/16/2022 Hemoglobin 14.9 12/16/2022 Hematocrit 45.0 12/16/2022 MCV 85.4 12/16/2022 MCH 28.3 12/16/2022 MCHC 33.1 12/16/2022 RDW-CV 12.6 12/16/2022 Platelet Count 241 12/16/2022 MPV 12.7 12/16/2022 Neut% 62.8 12/16/2022 Lymph% 27.8 12/16/2022 Pitt% 7.3 12/16/2022 Eosin% 1.2 09/17/2021 Baso% 0.4 12/16/2022 Abs Neut (ANC) 4.55 12/16/2022 Abs Pitt 0.53 12/16/2022 Abs Eosin 0.10 12/16/2022 Abs Baso 0.03 12/16/2022 Glucose (mg/dL) Date Value 12/16/2022 91 09/17/2021 115 Potassium (mmol/L) Date Value 12/16/2022 4.1 09/17/2021 Unable to assay due to interference from hemolysis. Suggest reorder as clinically indicated. Sodium (mmol/L) Date Value 12/16/2022 138 09/17/2021 138 Chloride (mmol/L) Date Value 12/16/2022 106 09/17/2021 103 CO2 (mmol/L) Date Value 12/16/2022 21 09/17/2021 25 Creatinine (mg/dL) Date Value 12/16/2022 0.64 09/17/2021 0.62 BUN (mg/dL) Date Value 12/16/2022 16 09/17/2021 13 Anion Gap (mmol/L) Date Value 12/16/2022 11 09/17/2021 10 Calcium (mg/dL) Date Value 09/17/2021 9.6 Calcium, Total (mg/dL) Date Value 12/16/2022 10.1 Protein, Total (g/dL) Date Value 12/16/2022 7.8 09/17/2021 8.4 09/17/2021 7.4 Albumin (g/dL) Date Value 12/16/2022 4.6 09/17/2021 4.6 Bilirubin, Total (mg/dL) Date Value 12/16/2022 0.2 09/17/2021 0.3 Alkaline Phosphatase (U/L) Date Value 12/16/2022 59 09/17/2021 71 AST (U/L) Date Value 12/16/2022 17 09/17/2021 38 ALT (U/L) Date Value 12/16/2022 11 09/17/2021 14 PAST MEDICAL HISTORY Diagnosis Date Deep venous thrombosis (HCC) right arm Foot drop left foot - ultimately thought to be dystonia Hypertension when sick after delivery of her baby 1 year ago Infection in abdomen (HCC) Pneumothorax PAST SURGICAL HISTORY Procedure Laterality Date , CLASSIC, IN-HOSP CARE Sep 14, 2011 CHOLECYSTECTOMY 2000 Social History Tobacco Use Smoking status: Never Smokeless tobacco: Never Substance Use Topics Alcohol use: Yes Comment: very very rarely Drug use: No FAMILY HISTORY Problem Relation Age of Onset Heart Father PHYSICAL EXAMINATION: Musculoskeletal: Limited passive range of motion is noted in the left elbow flexors and extensors, wrist extensors and finger extensors due to spasticity. Cognitive/Behavioral: The patient was alert and oriented with normal language, memory, and praxis. Formal neuropsychological testing was not performed today. The patient did not exhibit signs of pathological anxiety or depression during the interview and examination. Cranial Nerves: Visual acuity: OU: 20/25. Corrected: No. Eye movements were full without nystagmus. Facial sensation was normal. Muscles of mastication and facial expression were decreased on the left. Hearing was intact. Gag reflex and palatal movements were normal. Sternocleidomastoid and trapezius power decreased on the left. Tongue movements were normal. There was no dysarthria. Strength Right Left Shoulder abduction 5 3 Elbow flexion 5 2 Elbow extension 5 1 Wrist extension 5 0 Hip flexion 5 3+ Knee flexion 5 2 Knee extension 5 5 Plantarflexion 5 Dorsiflexion 5 Strength: She is wearing left AFO. Spasticity Right Left Shoulder 0 1 Elbow flexion 0 3 Elbow extension 0 3 Wrist flexion 0 0 Wrist extension 0 3 Finger flexion 0 0 Finger extension 0 3 Hip adduction 0 0 Knee extension 0. 1 Knee flexion 0 1+ Plantarflexion 0 Modified Francine Scale 0 - No increase in tone 1 - Slight increase in tone (catch and release at end of ROM) 1+ - Slight increase in tone, manifested by a catch, followed by minimal resistance throughout remainder (less than half of ROM) 2 - Marked increase in tone through most of the ROM, but affected part(s) easily moved 3 - Considerable increase in tone; passive movement difficult 4 - Affected part(s) rigid in flexion or extension She is wearing left AFO Spasms observed: RUE: no right upper extremity spasms LUE: no left upper extremity spasms RLE: no right lower extremity spasms LLE: no left lower extremity spasms [facility] MS TIMED 25 FOOT WALK: Not tested. Assistance required: crutches (She uses a forearm crutch) Ambulation Index Score: 4 - Unilateral support and 25 ft <20 sec OR no support and 25 ft > 20 sec Cerebellar: There was no dysmetria on [id number] on the right. She was unable to perform on the left. [id number]-bm-[id number] testing was without dysmetria bilaterally. Fine movements were intact in the right hand. She was unable to perform on the left. Sensory: Light touch, vibration and joint position sensation were intact except vibration was decreased in the left lower extremity. Pinprick was not tested. ASSESSMENT: (G81.14) 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) (primary encounter diagnosis) (D49.6) Brain tumor (HCC) Patient with history of brain tumor and left spastic hemiplegia. Previous botox injections were effective and well tolerated. She has tried and failed baclofen, tizanidine and flexeril. She is a good candidate for botulinum toxin injections. I discussed the procedure, risks and benefits of botox injections. Goals are less stiffness, spasms and discomfort with improved passive range of motion, ease of care, better positioning, prevention of pressure sores and muscle contractures. I explained that botox will not treat injuries from her brain tumor and will not improve function. She states that she understands and wants to proceed with botox injections. Initial plan is to inject the left biceps (50 units), triceps (50 units), FDS (50 units) and FCR (50 units). We will repeat botox injections every 3 months and prior to each session, we will reassess to determine if changes are needed to the muscles targeted or the dose injected. We may increase to a maximum dose of 400 units if needed. She receives botox to the bladder every 6-9 months. I would recommend that we perform her injections no sooner than October 08, 2023 to coordinate with botox for the bladder as this will reduce the risk for her developing antibodies to botox that could limit it's effectiveness. She complains of curling of her toes. Unfortunately, we are limited by dose and spasticity is severe in the left arm. I have recommended that we target the left arm initially and then consider in the future injecting the toe flexors (FDL and FDB). She is agreeable to this plan. In the meantime, she is to continue baclofen 5 mg as needed. She is to continue to perform stretching exercises daily and in physical and occupational therapies. Initial pre-authorization Medication: Botox [id number] Dose (units every 90 days): 400 If initial pre-authorization; list treatments failed: PT/OT, Baclofen, Tizanidine and Other CPT Codes: Limbs: 38103, 40561, 89796 and 07600 EMG guidance: 30522 Limb(s) / area(s) injected: Left biceps, triceps, finger flexors, wrist flexors and toe flexors Educational materials provided: None Checklist for botulinum toxin or intrathecal baclofen therapy Severe spinal deformity: no History of trauma to the spine: no History of spinal surgery: no History of seizures: no Pacemaker: no Anticoagulation: no Bleeding disorder: no Ability to provide consent: yes Allergy to lidocaine: no Allergy to betadine: no Transportation problems: no Other: no PLAN: 1. Oral antispasticity medications: Continue baclofen 5 mg as needed. 2. Schedule Botox injections, 200 units. Transfers independently. 3. Physical/occupational therapy: Continue to perform stretching exercises daily and in physical and occupational therapies. 4. Note copied to Mio Rogers MD via [employer]. Time spent with patient: 70 minutes. More than 50% of the face to face time was dedicated to education and counseling regarding treatment options for spasticity. Patrick Bustamante MD documented in this encounter [facility] 07-22-2023 Hospital Discharge instructions Patient Education 07/22/2023 13:20:39 Overactive Bladder, Adult Overactive Bladder, Adult Overactive bladder is a condition in which a person has a sudden and frequent need to urinate. A person might also leak urine if he or she cannot get to the bathroom fast enough (urinary incontinence). Sometimes, symptoms can interfere with work or social activities. What are the causes? Overactive bladder is associated with poor nerve signals between your bladder and your brain. Your bladder may get the signal to empty before it is full. You may also have very sensitive muscles that make your bladder squeeze too soon. This condition may also be caused by other factors, such as: Medical conditions: ?Urinary tract infection. ?Infection of nearby tissues. ?Prostate enlargement. ?Bladder stones, inflammation, or tumors. ?Diabetes. ?Muscle or nerve weakness, especially from these conditions: ?A spinal cord injury. ?Stroke. ?Multiple sclerosis. ?Parkinson's disease. Other causes: ?Surgery on the uterus or urethra. ?Drinking too much caffeine or alcohol. ?Certain medicines, especially those that eliminate extra fluid in the body (diuretics). ?Constipation. What increases the risk? You may be at greater risk for overactive bladder if you: Are an older adult. Smoke. Are going through menopause. Have prostate problems. Have a neurological disease, such as stroke, dementia, Parkinson's disease, or multiple sclerosis (MS). Eat or drink alcohol, spicy food, caffeine, and other things that irritate the bladder. Are overweight or obese. What are the signs or symptoms? Symptoms of this condition include a sudden, strong urge to urinate. Other symptoms include: Leaking urine. Urinating 8 or more times a day. Waking up to urinate 2 or more times overnight. How is this diagnosed? This condition may be diagnosed based on: Your symptoms and medical history. A physical exam. Blood or urine tests to check for possible causes, such as infection. You may also need to see a health care provider who specializes in urinary tract problems. This is called a urologist. How is this treated? Treatment for overactive bladder depends on the cause of your condition and whether it is mild or severe. Treatment may include: Bladder training, such as: ?Learning to control the urge to urinate by following a schedule to urinate at regular intervals. ?Doing Kegel exercises to strengthen the pelvic floor muscles that support your bladder. Special devices, such as: ?Biofeedback. This uses sensors to help you become aware of your body's signals. ?Electrical stimulation. This uses electrodes placed inside the body (implanted) or outside the body. These electrodes send gentle pulses of electricity to strengthen the nerves or muscles that control the bladder. ?Women may use a plastic device, called a pessary, that fits into the vagina and supports the bladder. Medicines, such as: ?Antibiotics to treat bladder infection. ?Antispasmodics to stop the bladder from releasing urine at the wrong time. ?Tricyclic antidepressants to relax bladder muscles. ?Injections of botulinum toxin type A directly into the bladder tissue to relax bladder muscles. Surgery, such as: ?A device may be implanted to help manage the nerve signals that control urination. ?An electrode may be implanted to stimulate electrical signals in the bladder. ?A procedure may be done to change the shape of the bladder. This is done only in very severe cases. Follow these instructions at home: Eating and drinking Make diet or lifestyle changes recommended by your health care provider. These may include: ?Drinking fluids throughout the day and not only with meals. ?Cutting down on caffeine or alcohol. ?Eating a healthy and balanced diet to prevent constipation. This may include: ?Choosing foods that are high in fiber, such as beans, whole grains, and fresh fruits and vegetables. ?Limiting foods that are high in fat and processed sugars, such as fried and sweet foods. Lifestyle Lose weight if needed. Do not use any products that contain nicotine or tobacco. These include cigarettes, chewing tobacco, and vaping devices, such as e-cigarettes. If you need help quitting, ask your health care provider. General instructions Take yyeq-lxo-[id number] and prescription medicines only as told by your health care provider. If you were prescribed an antibiotic medicine, take it as told by your health care provider. Do not stop taking the antibiotic even if you start to feel better. Use any implants or pessary as told by your health care provider. If needed, wear pads to absorb urine leakage. Keep a log to track how much and when you drink, and when you need to urinate. This will help your health care provider monitor your condition. Keep all follow-up visits. This is important. Contact a health care provider if: You have a fever or chills. Your symptoms do not get better with treatment. Your pain and discomfort get worse. You have more frequent urges to urinate. Get help right away if: You are not able to control your bladder. Summary Overactive bladder refers to a condition in which a person has a sudden and frequent need to urinate. Several conditions may lead to an overactive bladder. Treatment for overactive bladder depends on the cause and severity of your condition. Making lifestyle changes, doing Kegel exercises, keeping a log, and taking medicines can help with this condition. This information is not intended to replace advice given to you by your health care provider. Make sure you discuss any questions you have with your health care provider. Document Revised: 07/30/2021 Document Reviewed: 07/30/2021 [employer] Patient Education 2022 [employer]. Follow Up Care 06/06/2023 14:34:51 With:LIANNA RIOS PA-C, URL Address: [address] [place] [address] When: Unknown [facility] 07-08-2023 Hospital Discharge instructions Patient Education 07/08/2023 11:38:59 EU - Cystoscopy with Botox Injection Discharge Instructions (CUSTOM) Cystoscopy with Botox injection Voiding after the procedure: there may be some pain, burning, urgency, frequency and blood tinged urine following the procedure. These symptoms usually resolve within 2-5 days. Drink the amount of fluid it takes to keep the urine pink to yellow or clear in color. Drinking enough water and fluids will help to ease any discomfort after your procedure. It may take a few days to a week to notice a gradual improvement in the overactive bladder symptoms. If you are having problems that seem out of the ordinary, please call. If unable to contact your physician and you feel it is an emergency, go to the nearest emergency room or call 911 Do not lift more than fifteen pounds for 1-2 days. If you see a lot of blood, you probably did too much. Diet you may resume your normal diet. Pain control You may take extra strength Tylenol or Motrin for discomfort. Call if you have a fever over 100 degrees. Follow Up Care 06/06/2023 14:30:01 With:Oseas BLAS Address: [facility] [address] [place] [address]- Business (1) When: Unknown Comments:Call for any problems. [facility] 07-08-2023 History of Present illness Narrative The appointment was canceled. documented in this encounter [facility] 06-24-2023 Evaluation + Plan note Future Scheduled TestsMA Mamm Screen w/CAD if perf and 3D [facility] 06/24/23 [facility] 12-20-2022 History of Present illness Narrative AMBULATORY TELEPHONE VISIT Monika Haskins has consented to this telephone encounter. Persons Present: patient Chief Complaint/Reason: follow up AL amyloidosis. HPI: Ms. Haskins presents today for follow up of AL amyloidoma of PROFILE GRINDER. Stable neurologic symptoms. Data Reviewed: Most recent labs and imaging results. 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 Total Time Spent: 14 minutes Mio Rogers MD documented in this encounter [facility] 12-17-2022 History of Present illness Narrative Ms. Haskins has significant gait abnormalities on her left lower extremity. She currently is wearing a brace on that side to help with support and stability while doing her daily living activities. Her underlying condition is a brain tumor that has caused a permanent deficit in her ambulation. Monika needs a new custom AFO fabricated due to her current brace no longer fitting or functioning properly secondary to her approximate 100 lb weight loss. This weight loss has caused a change in her limb shape which is causing her current brace to be ill-fitting and there are no modifications that would make the brace appropriate for the patient. Mio Rogers MD documented in this encounter [facility] 12-16-2022 History of Present illness Narrative Radiology Service Progress Note DATE OF SERVICE: December 16, 2022 TIME: 3:42 PM PATIENT WEIGHT: 219 LBS PATIENT IDENTITY VERIFICATION COMPLETED USING TWO (2) STANDARD IDENTIFIERS: Name and Date of confirmed by patient verbally. FALL SCREENING: Has the patient had 2 falls in the last year or 1 fall with injury or currently using an Ambulatory Assistive Device (Walker, Cane, Wheelchair, Crutches, etc.)? Yes, Patient High Risk for Falls What interventions were put in place to prevent falls during this visit? Yellow Falls Risk Wristband Applied, Instructed Patient to Call for Help if Needed, Offered Assistance with Transfers/Clothing, Instructed Patient to Remain Seated (Not on Exam Table) Until Exam, Increased Observations by Caregivers, Escorted to/from Restroom, and patient is wearing her own shoes and using a wheelchair while in the department. PATIENT GENDER DATA: Female. status: : No status: NO. ALLERGIES: Reviewed and unchanged CONTRAST ALLERGY: No EXAM: MRI - CONTRAST TYPE: GROUP II IV SITE: Ambulatory: A peripheral IV was started in the Left hand with a Angio cath: 22 gauge. and A Saline lock was inserted per protocol IV SITE APPEARANCE: Clean,Dry and Intact SIGNATURE: Nishi Melendez RN PATIENT NAME: Monika Haskins DATE: December 16, 2022 TIME: 3:42 PM Radiology Service Progress Note PATIENT NAME: Monika Haskins DATE OF SERVICE: December 16, 2022 TIME: 4:30 PM PATIENT IDENTITY VERIFICATION COMPLETED USING TWO (2) IDENTIFIERS: Name and Date of confirmed by patient verbally and Name and Date of confirmed by identification band. FALL SCREENING: Has the patient had 2 falls in the last year or 1 fall with injury or currently using an Ambulatory Assistive Device (Walker, Cane, Wheelchair, Crutches, etc.)? Yes, Patient High Risk for Falls What interventions were put in place to prevent falls during this visit? [place] Risk Wristband Applied, Offered Assistance with Transfers/Clothing, Instructed Patient to Remain Seated (Not on Exam Table) Until Exam, and Increased Observations by Caregivers PATIENT GENDER DATA: Female. status: : No status: NO. PATIENT RELEVANT IMPLANT DATA REVIEWED: Yes RADIOLOGY DEPARTMENT: MR; Exam(s) Completed: Head: Routine Brain PERIPHERAL IV DATA: Site assessment: Clean,Dry and Intact, Site disposition Discontinued SIGNED BY: RT Lorenza(R) December 16, 2022 4:30 PM documented in this encounter [facility] 10-01-2022 Hospital Discharge instructions Patient Education 10/01/2022 11:24:21 EU - Cystoscopy with Botox Injection Discharge Instructions (CUSTOM) Cystoscopy with Botox injection Voiding after the procedure: there may be some pain, burning, urgency, frequency and blood tinged urine following the procedure. These symptoms usually resolve within 2-5 days. Drink the amount of fluid it takes to keep the urine pink to yellow or clear in color. Drinking enough water and fluids will help to ease any discomfort after your procedure. It may take a few days to a week to notice a gradual improvement in the overactive bladder symptoms. If you are having problems that seem out of the ordinary, please call. If unable to contact your physician and you feel it is an emergency, go to the nearest emergency room or call 911 Do not lift more than fifteen pounds for 1-2 days. If you see a lot of blood, you probably did too much. Diet you may resume your normal diet. Pain control You may take extra strength Tylenol or Motrin for discomfort. Call if you have a fever over 100 degrees. Follow Up Care 09/19/2022 14:00:17 With:Oseas BLAS Address: [facility] [address] [place] [address]- Business (1) When: Unknown Comments:Keep scheduled appointment [facility] 09-19-2022 Hospital Discharge instructions Follow Up Care 09/19/2022 13:45:23 With:ROOPA FARIAS, Oseas R, URL Address: [facility] [address] [place] [address]- When:Within 6 Month(s) Comments:F/U OAB [facility] 07-30-2022 Miscellaneous Notes If pt calls back the form was received and sent to the nurses. Monika Haskins is calling Mio Rogers MD today to check with the office to see if a form from [facility] was received yesterday regarding her medical certification. Pt added that the form needs to be completed and returned by next week. Pt also wanted the team to know that her MRI is scheduled for 09/[address] Rogers on 09/18. Pt would like to change her visit w/ the until after her scans but MD will be on service. She is also willing to do a VV appt instead. Please advise. Patient has been identified by name and birthdate. Pt can be reached at: [phone] (cell) Werner Zimmer Adm Asst July 26, 2022 documented in this encounter [facility] 06-04-2022 Miscellaneous Notes Spoke with patient and advised our office would happy to sign any forms, direct fax number given to patient Patient verbalized understanding Zonia Josue RN Pt called requesting SW information. The following was provided: Precious Hunt [phone] Patient has been identified by name and birthdate. Di Uribe June 04, 2022 Patient calling back to follow-up on forms being completed. I informed patient that Zonia is working on this with SW to see how they can assist. Patient requesting that Dr. Rogers call her back at [phone] Spoke with patient and relayed the following message, per Zonia: I am not sure its appropriate that we fill them out. We only see her yearly. But she needs to have the forms faxed over to us so I can take a look. I may have to refer her back to local PCP. Pt stated she does not see any other doctor and that Laureen and Dr. Rogers always called the number she listed below and did this for her. She stated she will call Dr. Washington pearson if she has to. Monika D Divine is calling Mio Rogers MD today regarding Care Coordination ([employer] Assistance Form) Patient has been identified by name and birthdate. Requesting response back: [phone] (home) [phone] (work) [phone] (cell) Pt called requesting if our office can complete the [employer] Assistance Form for her electric bill today or as soon as possible. Pt provided: Email: [email or web address]---Eron morton ID# [id number] PH: [phone] Pt Email: [email or web address] Pt also wanted to see if an order can be put in for her to get MRI, lab, and visit scheduled late August or beginning of September for her next follow up. Pt understands that Dr. Rogers's clinic gets full quick and wanted to get this going now. Pt would like a return call to confirm all Carmel Barcenas June 03, 2022 documented in this encounter [facility] 04-17-2022 Hospital Discharge instructions Patient Education 04/17/2022 15:02:26 Overactive Bladder, Adult Overactive Bladder, Adult Overactive bladder refers to a condition in which a person has a sudden need to pass urine. The person may leak urine if he or she cannot get to the bathroom fast enough (urinary incontinence). A person with this condition may also wake up several times in the night to go to the bathroom. Overactive bladder is associated with poor nerve signals between your bladder and your brain. Your bladder may get the signal to empty before it is full. You may also have very sensitive muscles that make your bladder squeeze too soon. These symptoms might interfere with daily work or social activities. What are the causes? This condition may be associated with or caused by: Urinary tract infection. Infection of nearby tissues, such as the prostate. Prostate enlargement. Surgery on the uterus or urethra. Bladder stones, inflammation, or tumors. Drinking too much caffeine or alcohol. Certain medicines, especially medicines that get rid of extra fluid in the body (diuretics). Muscle or nerve weakness, especially from: ?A spinal cord injury. ?Stroke. ?Multiple sclerosis. ?Parkinson's disease. Diabetes. Constipation. What increases the risk? You may be at greater risk for overactive bladder if you: Are an older adult. Smoke. Are going through menopause. Have prostate problems. Have a neurological disease, such as stroke, dementia, Parkinson's disease, or multiple sclerosis (MS). Eat or drink things that irritate the bladder. These include alcohol, spicy food, and caffeine. Are overweight or obese. What are the signs or symptoms? Symptoms of this condition include: Sudden, strong urge to urinate. Leaking urine. Urinating 8 or more times a day. Waking up to urinate 2 or more times a night. How is this diagnosed? Your health care provider may suspect overactive bladder based on your symptoms. He or she will diagnose this condition by: A physical exam and medical history. Blood or urine tests. You might need bladder or urine tests to help determine what is causing your overactive bladder. You might also need to see a health care provider who specializes in urinary tract problems (urologist). How is this treated? Treatment for overactive bladder depends on the cause of your condition and whether it is mild or severe. You can also make lifestyle changes at home. Options include: Bladder training. This may include: ?Learning to control the urge to urinate by following a schedule that directs you to urinate at regular intervals (timed voiding). ?Doing Kegel exercises to strengthen your pelvic floor muscles, which support your bladder. Toning these muscles can help you control urination, even if your bladder muscles are overactive. Special devices. This may include: ?Biofeedback, which uses sensors to help you become aware of your body's signals. ?Electrical stimulation, which uses electrodes placed inside the body (implanted) or outside the body. These electrodes send gentle pulses of electricity to strengthen the nerves or muscles that control the bladder. ?Women may use a plastic device that fits into the vagina and supports the bladder (pessary). Medicines. ?Antibiotics to treat bladder infection. ?Antispasmodics to stop the bladder from releasing urine at the wrong time. ?Tricyclic antidepressants to relax bladder muscles. ?Injections of botulinum toxin type A directly into the bladder tissue to relax bladder muscles. Lifestyle changes. This may include: ?Weight loss. Talk to your health care provider about weight loss methods that would work best for you. ?Diet changes. This may include reducing how much alcohol and caffeine you consume, or drinking fluids at different times of the day. ?Not smoking. Do not use any products that contain nicotine or tobacco, such as cigarettes and e-cigarettes. If you need help quitting, ask your health care provider. Surgery. ?A device may be implanted to help manage the nerve signals that control urination. ?An electrode may be implanted to stimulate electrical signals in the bladder. ?A procedure may be done to change the shape of the bladder. This is done only in very severe cases. Follow these instructions at home: Lifestyle Make any diet or lifestyle changes that are recommended by your health care provider. These may include: ?Drinking less fluid or drinking fluids at different times of the day. ?Cutting down on caffeine or alcohol. ?Doing Kegel exercises. ?Losing weight if needed. ?Eating a healthy and balanced diet to prevent constipation. This may include: ?Eating foods that are high in fiber, such as fresh fruits and vegetables, whole grains, and beans. ?Limiting foods that are high in fat and processed sugars, such as fried and sweet foods. General instructions Take ywvs-nuy-ikxzljc and prescription medicines only as told by your health care provider. If you were prescribed an antibiotic medicine, take it as told by your health care provider. Do not stop taking the antibiotic even if you start to feel better. Use any implants or pessary as told by your health care provider. If needed, wear pads to absorb urine leakage. Keep a journal or log to track how much and when you drink and when you feel the need to urinate. This will help your health care provider monitor your condition. Keep all follow-up visits as told by your health care provider. This is important. Contact a health care provider if: You have a fever. Your symptoms do not get better with treatment. Your pain and discomfort get worse. You have more frequent urges to urinate. Get help right away if: You are not able to control your bladder. Summary Overactive bladder refers to a condition in which a person has a sudden need to pass urine. Several conditions may lead to an overactive bladder. Treatment for overactive bladder depends on the cause and severity of your condition. Follow your health care provider's instructions about lifestyle changes, doing Kegel exercises, keeping a journal, and taking medicines. This information is not intended to replace advice given to you by your health care provider. Make sure you discuss any questions you have with your health care provider. Document Released: 09/06/2010 Document Revised: 03/02/2020 Document Reviewed: 11/26/2018 [employer] Patient Education 2019 [employer]. Follow Up Care 04/15/2022 13:41:42 With:LIANNA RIOS PA-C, [facility] Address: [address] [place] [address] [phone] When: Unknown [facility] 04-17-2022 Evaluation + Plan note Diagnostic Tests PendingUrine Culture 04/17/22 [facility] 03-05-2022 Hospital Discharge instructions Patient Education 03/05/2022 11:46:39 Overactive Bladder, Adult Overactive Bladder, Adult Overactive bladder refers to a condition in which a person has a sudden need to pass urine. The person may leak urine if he or she cannot get to the bathroom fast enough (urinary incontinence). A person with this condition may also wake up several times in the night to go to the bathroom. Overactive bladder is associated with poor nerve signals between your bladder and your brain. Your bladder may get the signal to empty before it is full. You may also have very sensitive muscles that make your bladder squeeze too soon. These symptoms might interfere with daily work or social activities. What are the causes? This condition may be associated with or caused by: Urinary tract infection. Infection of nearby tissues, such as the prostate. Prostate enlargement. Surgery on the uterus or urethra. Bladder stones, inflammation, or tumors. Drinking too much caffeine or alcohol. Certain medicines, especially medicines that get rid of extra fluid in the body (diuretics). Muscle or nerve weakness, especially from: ?A spinal cord injury. ?Stroke. ?Multiple sclerosis. ?Parkinson's disease. Diabetes. Constipation. What increases the risk? You may be at greater risk for overactive bladder if you: Are an older adult. Smoke. Are going through menopause. Have prostate problems. Have a neurological disease, such as stroke, dementia, Parkinson's disease, or multiple sclerosis (MS). Eat or drink things that irritate the bladder. These include alcohol, spicy food, and caffeine. Are overweight or obese. What are the signs or symptoms? Symptoms of this condition include: Sudden, strong urge to urinate. Leaking urine. Urinating 8 or more times a day. Waking up to urinate 2 or more times a night. How is this diagnosed? Your health care provider may suspect overactive bladder based on your symptoms. He or she will diagnose this condition by: A physical exam and medical history. Blood or urine tests. You might need bladder or urine tests to help determine what is causing your overactive bladder. You might also need to see a health care provider who specializes in urinary tract problems (urologist). How is this treated? Treatment for overactive bladder depends on the cause of your condition and whether it is mild or severe. You can also make lifestyle changes at home. Options include: Bladder training. This may include: ?Learning to control the urge to urinate by following a schedule that directs you to urinate at regular intervals (timed voiding). ?Doing Kegel exercises to strengthen your pelvic floor muscles, which support your bladder. Toning these muscles can help you control urination, even if your bladder muscles are overactive. Special devices. This may include: ?Biofeedback, which uses sensors to help you become aware of your body's signals. ?Electrical stimulation, which uses electrodes placed inside the body (implanted) or outside the body. These electrodes send gentle pulses of electricity to strengthen the nerves or muscles that control the bladder. ?Women may use a plastic device that fits into the vagina and supports the bladder (pessary). Medicines. ?Antibiotics to treat bladder infection. ?Antispasmodics to stop the bladder from releasing urine at the wrong time. ?Tricyclic antidepressants to relax bladder muscles. ?Injections of botulinum toxin type A directly into the bladder tissue to relax bladder muscles. Lifestyle changes. This may include: ?Weight loss. Talk to your health care provider about weight loss methods that would work best for you. ?Diet changes. This may include reducing how much alcohol and caffeine you consume, or drinking fluids at different times of the day. ?Not smoking. Do not use any products that contain nicotine or tobacco, such as cigarettes and e-cigarettes. If you need help quitting, ask your health care provider. Surgery. ?A device may be implanted to help manage the nerve signals that control urination. ?An electrode may be implanted to stimulate electrical signals in the bladder. ?A procedure may be done to change the shape of the bladder. This is done only in very severe cases. Follow these instructions at home: Lifestyle Make any diet or lifestyle changes that are recommended by your health care provider. These may include: ?Drinking less fluid or drinking fluids at different times of the day. ?Cutting down on caffeine or alcohol. ?Doing Kegel exercises. ?Losing weight if needed. ?Eating a healthy and balanced diet to prevent constipation. This may include: ?Eating foods that are high in fiber, such as fresh fruits and vegetables, whole grains, and beans. ?Limiting foods that are high in fat and processed sugars, such as fried and sweet foods. General instructions Take mkau-zrd-raxpdcv and prescription medicines only as told by your health care provider. If you were prescribed an antibiotic medicine, take it as told by your health care provider. Do not stop taking the antibiotic even if you start to feel better. Use any implants or pessary as told by your health care provider. If needed, wear pads to absorb urine leakage. Keep a journal or log to track how much and when you drink and when you feel the need to urinate. This will help your health care provider monitor your condition. Keep all follow-up visits as told by your health care provider. This is important. Contact a health care provider if: You have a fever. Your symptoms do not get better with treatment. Your pain and discomfort get worse. You have more frequent urges to urinate. Get help right away if: You are not able to control your bladder. Summary Overactive bladder refers to a condition in which a person has a sudden need to pass urine. Several conditions may lead to an overactive bladder. Treatment for overactive bladder depends on the cause and severity of your condition. Follow your health care provider's instructions about lifestyle changes, doing Kegel exercises, keeping a journal, and taking medicines. This information is not intended to replace advice given to you by your health care provider. Make sure you discuss any questions you have with your health care provider. Document Released: 09/06/2010 Document Revised: 03/02/2020 Document Reviewed: 11/26/2018 [employer] Patient Education 2020 [employer]. Follow Up Care 02/12/2022 10:21:37 With:LIANNA RIOS PA-C, URL Address: [address] [place] [address] Business (1) When: only if needed [facility] [place] 02-28-2022 Miscellaneous Notes Done Zonia Josue RN Patient is calling again regarding handicap sticker Monika Haskins is calling Mio Rogers MD today regarding Individualized Education Plan Aide - Other (handicap) Patient has been identified by name and birthdate. Patients handicap sticker is . Can we fill out and email to her. [email or web address] Requesting response back: call on cell [phone] (home) [phone] (work) [phone] (cell) Lakshmi Moseley February 27, 2022 documented in this encounter [facility] 02-12-2022 Hospital Discharge instructions Patient Education 02/12/2022 09:18:54 [facility] - Cystoscopy with Botox Injection Discharge Instructions (CUSTOM) Cystoscopy with Botox injection Voiding after the procedure: there may be some pain, burning, urgency, frequency and blood tinged urine following the procedure. These symptoms usually resolve within 2-5 days. Drink the amount of fluid it takes to keep the urine pink to yellow or clear in color. Drinking enough water and fluids will help to ease any discomfort after your procedure. It may take a few days to a week to notice a gradual improvement in the overactive bladder symptoms. If you are having problems that seem out of the ordinary, please call. If unable to contact your physician and you feel it is an emergency, go to the nearest emergency room or call 911 Do not lift more than fifteen pounds for 1-2 days. If you see a lot of blood, you probably did too much. Diet you may resume your normal diet. Pain control You may take extra strength Tylenol or Motrin for discomfort. Call if you have a fever over 100 degrees. Follow Up Care 02/11/2022 10:26:02 With:Oseas BLAS Address: [facility] [address], [place] [address]- Business (1) When:02/26/2022 09:18:40 [facility] Evaluation + Plan note Future Appointments Appointment Date:03/07/2022 11:15:00 AM Scheduled Provider:LIANNA RIOS PA-C [facility] Appoint[facility] Type:URO Office Visit [facility] Evaluation + Plan note Future Appointments Appointment Date:09/25/2022 10:30:00 AM Scheduled Provider: Location:[facility] Appointment Type:Urology CALL PAT FT Appointment Date:10/01/2022 10:30:00 AM Scheduled Provider: Location:[facility] Appointment Type:Urology FT Appointment Date:10/23/2022 01:30:00 PM Scheduled Provider:Kelly Avina Location:[facility] [place] Appointment Type:URO Office Visit [facility] Evaluation + Plan note Future Appointments Appointment Date:10/23/2022 01:30:00 PM Scheduled Provider:Kelly Avina [facility] Appointment Type:URO Office Visit [facility] Evaluation + Plan note Future Appointments Appointment Date:07/01/2023 08:30:00 AM Scheduled Provider: Location:[facility] Appointment Type:Urology CALL PAT FT Appointment Date:07/08/2023 11:00:00 AM Scheduled Provider: Location:[facility] Appointment Type:Urology FT Appointment Date:07/22/2023 01:00:00 PM Scheduled Provider:LIANNA RIOS PA-C [facility] Type:[facility]O Office Visit Diagnostic Tests PendingPAP w/ HPV and Genotype rflx 06/24/23 Future Scheduled TestsMA Mamm Screen w/CAD if perf and 3D Sage 06/24/23 [facility] Evaluation + Plan note Future Appointments Appointment Date:07/08/2023 11:00:00 AM Scheduled Provider: Location:[facility] Appointment Type:Urology FT Appointment Date:07/22/2023 01:00:00 PM Scheduled Provider:LIANNA RIOS PA-C Location:[facility] Appointment Type:URO Office Visit Future Scheduled TestsMA Mamm Screen w/CAD if perf and 3D Sage 06/24/23 [facility] Evaluation + Plan note Future Appointments Appointment Date:07/22/2023 01:00:00 PM Scheduled Provider:LIANNA RIOS PA-C Location:[facility] Appointment Type:URO Office Visit Future Scheduled TestsMA Mamm Screen w/CAD if perf and 3D Sage 06/24/23 [facility] Evaluation + Plan note Future Appointments Appointment Date:09/09/2023 11:20:00 AM Scheduled Provider:Ara Michelle Location:[facility] Appointment Type: Open [facility] Evaluation + Plan note Future Appointments Appointment Date:05/18/2024 01:00:00 PM Scheduled Provider:DIANA Case APRN, [place] X Location:[facility] Appointment Type:URO Office Visit Appointment Date:05/25/2024 10:20:00 AM Scheduled Provider:Ara Michelle [facility] Type: Open Appointment Date:01/13/2025 09:30:00 AM Scheduled Provider: Location:[facility] Appointment Type:FM Medicare Wellness Subsequent [facility] Evaluation + Plan note Future Appointments Appointment Date:06/24/2024 11:20:00 AM Scheduled Provider:Ara Michelle Location:[facility] Appointment Type: Open Appointment Date:01/13/2025 09:30:00 AM Scheduled Provider: Location:[facility] Appointment Type:FM Medicare Wellness Subsequent [facility] Evaluation + Plan note Future Appointments Appointment Date:08/26/2024 08:20:00 AM Scheduled Provider:Ara Michelle [facility] App[facility] Type: Open Appointment Date:01/13/2025 09:30:00 AM Scheduled Provider: [facility] App[facility] Type: Medicare Wellness Subsequent Diagnostic Tests PendingUrine Culture 07/29/24 [facility] Evaluation note Diagnosis Brain tumor (HCC) Neoplasm of unspecified nature of brain [facility] AL amyloidosis (HCC)- Primary Other amyloidosis [facility] Diagnosis AL amyloidosis (HCC) Other amyloidosis Brain tumor (HCC) Neoplasm of unspecified nature of brain [facility] Diagnosis AL amyloidosis (HCC)- Primary Other amyloidosis Brain tumor (HCC) Neoplasm of unspecified nature of brain [facility] Diagnosis APPOINTMENT CANCELLED- Primary [facility] Diagnosis 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 Brain tumor (HCC) Neoplasm of unspecified nature of brain [facility] Diagnosis 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 [facility] Diagnosis Brain tumor (HCC) Neoplasm of unspecified nature of brain [facility] Diagnosis Brain tumor (HCC) Neoplasm of unspecified nature of brain AL amyloidosis (HCC) Other amyloidosis [facility] Diagnosis AL amyloidosis (HCC)- Primary Other amyloidosis Brain tumor (HCC) Neoplasm of unspecified nature of brain [facility] Diagnosis 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 Brain tumor (HCC) Neoplasm of unspecified nature of brain [facility] Diagnosis 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 [facility] Diagnosis 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 Brain tumor (HCC) Neoplasm of unspecified nature of brain [facility] Diagnosis Post-menopausal bleeding Postmenopausal bleeding Complex ovarian cyst Uterine mass Other specified symptom associated with female genital organs [facility] N[facility] No data available for this section [facility] No data available for this section [facility] No data available for this section [facility] [place] Summary Purpose Family History No Family History Records Found No data available for this section No data available for this section No data available for this section No data available for this section No Family History Records FoundNo Family History Records FoundNo Family History Records FoundNo Family History Records FoundNo Family History Records Found Advance Directives No Advanced Directives Records FoundNo Advanced Directives Records FoundNo Advanced Directives Records FoundNo Advanced Directives Records FoundNo Advanced Directives Records FoundNo Advanced Directives Records Found Reason for Referral Specialty Diagnoses / Procedures Referred By Contac t Referred To Contact MR IMAGING Diagnoses Brain tumor (HCC) Procedures MRI BRAIN WO/W IVCON MRI BRAIN BRAIN STEM W/O W/CONTRAST MATERIAL Mio Rogers MD [address] [place] [address] Mr Imaging [place] [id number] Referral ID Status Reason Start Date Expiration Date Visits Requested Visits Authorized [id number] Pending Review Auto-Generat ed Referral 04/16/2025 05/16/2025 1 1 Specialty Diagnoses / Procedures Referred By Contac t Referred To Contact MR IMAGING Diagnoses Brain tumor (HCC) AL amyloidosis (HCC) Procedures MRI BRAIN WO/W IVCON MRI BRAIN BRAIN STEM W/O W/CONTRAST MATERIAL Mio Rogers MD [address] [place] [address] Mr Imaging Referral ID Status Reason Start Date Expiration Date Visits Requested Visits Authorized [id number] Pending Review Auto-Generat ed Referral 12/20/2023 01/19/2024 1 1 Specialty Diagnoses / Procedures Referred By Contac t Referred To Contact MR IMAGING Diagnoses AL amyloidosis (HCC) Brain tumor (HCC) Procedures MRI BRAIN WO/W IVCON MRI BRAIN BRAIN STEM W/O W/CONTRAST MATERIAL Mansi Gallagher APRN.SENIOR MEDIA PLANNER [address] [place] [address] Mr Imaging Referral ID Status Reason Start Date Expiration Date V isits Requested Visits Authorized [id number] Closed Auto-Generate d Referral 09/20/2022 10/20/2023 1 1 Additional Source Comments INFORMATION SOURCE (unrecogn ized section and content) DATE CREATED AUTHOR 12/20/2019 [facility] DATE CREATED AUTHOR AUTHOR'S ORGANIZ ATION 08/02/2024 [facility] DATE CREATED AUTHOR AUTHOR'S ORGANIZ ATION 09/04/2024 [facility] DATE CREATED AUTHOR AUTHOR'S ORGANIZ ATION 11/11/2024 [facility] DATE CREATED AUTHOR AUTHOR'S ORGANIZ ATION 12/17/2024 [facility] DATE CREATED AUTHOR AUTHOR'S ORGANIZ ATION 12/24/2024 [facility] EPIC Source Comments (unrecognize d section and content) In the event this informatio n is protected by the Federal Confidentiality of Alcohol and Drug Abuse Patient Records regulations: The Federal rules restrict any use of the information to criminally investigate or prosecute any alcohol or drug abuse patient.[facility] the event this information is protected by the Federal Confidentiality of Alcohol and Drug Abuse Patient Records regulations: The Federal rules restrict any use of the information to criminally investigate or prosecute any alcohol or drug abuse patient.[facility] the event this information is protected by the Federal Confidentiality of Alcohol and Drug Abuse Patient Records regulations: The Federal rules restrict any use of the information to criminally investigate or prosecute any alcohol or drug abuse patient.[facility] the event this information is protected by the Federal Confidentiality of Alcohol and Drug Abuse Patient Records regulations: The Federal rules restrict any use of the information to criminally investigate or prosecute any alcohol or drug abuse patient.[facility]In the event this information is protected by the Federal Confidentiality of Alcohol and Drug Abuse Patient Records regulations: The Federal rules restrict any use of the information to criminally investigate or prosecute any alcohol or drug abuse patient.[facility]In the event this information is protected by the Federal Confidentiality of Alcohol and Drug Abuse Patient Records regulations: The Federal rules restrict any use of the information to criminally investigate or prosecute any alcohol or drug abuse patient.[facility]In the event this information is protected by the Federal Confidentiality of Alcohol and Drug Abuse Patient Records regulations: The Federal rules restrict any use of the information to criminally investigate or prosecute any alcohol or drug abuse patient.[facility] the event this information is protected by the Federal Confidentiality of Alcohol and Drug Abuse Patient Records regulations: The Federal rules restrict any use of the information to criminally investigate or prosecute any alcohol or drug abuse patient.[facility] the event this information is protected by the Federal Confidentiality of Alcohol and Drug Abuse Patient Records regulations: The Federal rules restrict any use of the information to criminally investigate or prosecute any alcohol or drug abuse patient.[facility]In the event this information is protected by the Federal Confidentiality of Alcohol and Drug Abuse Patient Records regulations: The Federal rules restrict any use of the information to criminally investigate or prosecute any alcohol or drug abuse patient.[facility] the event this information is protected by the Federal Confidentiality of Alcohol and Drug Abuse Patient Records regulations: The Federal rules restrict any use of the information to criminally investigate or prosecute any alcohol or drug abuse patient.[facility]In the event this information is protected by the Federal Confidentiality of Alcohol and Drug Abuse Patient Records regulations: The Federal rules restrict any use of the information to criminally investigate or prosecute any alcohol or drug abuse patient.[facility]In the event this information is protected by the Federal Confidentiality of Alcohol and Drug Abuse Patient Records regulations: The Federal rules restrict any use of the information to criminally investigate or prosecute any alcohol or drug abuse patient.[facility] HospitalIn the event this information is protected by the Federal Confidentiality of Alcohol and Drug Abuse Patient Records regulations: The Federal rules restrict any use of the information to criminally investigate or prosecute any alcohol or drug abuse patient.[facility]In the event this information is protected by the Federal Confidentiality of Alcohol and Drug Abuse Patient Records regulations: The Federal rules restrict any use of the information to criminally investigate or prosecute any alcohol or drug abuse patient.[facility] HospitalIn the event this information is protected by the Federal Confidentiality of Alcohol and Drug Abuse Patient Records regulations: The Federal rules restrict any use of the information to criminally investigate or prosecute any alcohol or drug abuse patient.[facility]In the event this information is protected by the Federal Confidentiality of Alcohol and Drug Abuse Patient Records regulations: The Federal rules restrict any use of the information to criminally investigate or prosecute any alcohol or drug abuse patient.[facility] HospitalIn the event this information is protected by the Federal Confidentiality of Alcohol and Drug Abuse Patient Records regulations: The Federal rules restrict any use of the information to criminally investigate or prosecute any alcohol or drug abuse patient.[facility]In the event this information is protected by the Federal Confidentiality of Alcohol and Drug Abuse Patient Records regulations: The Federal rules restrict any use of the information to criminally investigate or prosecute any alcohol or drug abuse patient.[facility] HospitalIn the event this information is protected by the Federal Confidentiality of Alcohol and Drug Abuse Patient Records regulations: The Federal rules restrict any use of the information to criminally investigate or prosecute any alcohol or drug abuse patient.[facility] HospitalIn the event this information is protected by the Federal Confidentiality of Alcohol and Drug Abuse Patient Records regulations: The Federal rules restrict any use of the information to criminally investigate or prosecute any alcohol or drug abuse patient.[facility] HospitalIn the event this information is protected by the Federal Confidentiality of Alcohol and Drug Abuse Patient Records regulations: The Federal rules restrict any use of the information to criminally investigate or prosecute any alcohol or drug abuse patient.[facility] HospitalIn the event this information is protected by the Federal Confidentiality of Alcohol and Drug Abuse Patient Records regulations: The Federal rules restrict any use of the information to criminally investigate or prosecute any alcohol or drug abuse patient.[facility] HospitalIn the event this information is protected by the Federal Confidentiality of Alcohol and Drug Abuse Patient Records regulations: The Federal rules restrict any use of the information to criminally investigate or prosecute any alcohol or drug abuse patient.[facility] HospitalIn the event this information is protected by the Federal Confidentiality of Alcohol and Drug Abuse Patient Records regulations: The Federal rules restrict any use of the information to criminally investigate or prosecute any alcohol or drug abuse patient.[facility] HospitalIn the event this information is protected by the Federal Confidentiality of Alcohol and Drug Abuse Patient Records regulations: The Federal rules restrict any use of the information to criminally investigate or prosecute any alcohol or drug abuse patient.[facility] Reason for Visit (unrecogniz ed section and content) Reason Comments Spasticity Specialty Diagnoses / Procedures Referred By Jason toro Referred To Contact [facility] Diagnoses Spasticity due to old stroke Procedures CONSULT TO PHYSICAL MEDICINE AND REHABILITATION OFFICE/OUTPATIENT [facility] 60-74 MINUTES Mio Rogers MD [address] [place] [address] [facility] [place] [address] Referral ID Status Reason Start Date Expiration Date Visits Requested Visits Authorized [id number] Pending Review PCP Requested Referral Auto-Generate d Referral 04/22/2023 04/14/2024 1 1 Reason Comments Individualized Education Plan Aide - Other handicap Reason Comments Care Coordination [employer] Form Reason Comments Individualized Education Plan Aide - Other Question re: oc t's appts Reason Onset Date Comments Refill Request 09/11/2022 Reason Onset Date Comments Refill Request 12/12/2022 Reason Comments Radiology MRI Specialty Diagnoses / Procedures Referred By Jason toro Referred To Contact MR IMAGING Diagnoses AL amyloidosis (HCC) Brain tumor (HCC) Procedures MRI BRAIN WO/W IVCON MRI BRAIN BRAIN STEM W/O W/CONTRAST MATERIAL Mansi Gallagher APRN.SENIOR MEDIA PLANNER [id number] [place] [id number] Mr Imaging Referral ID Status Reason Start Date Expiration Date V isits Requested Visits Authorized [id number] Closed Auto-Generate d Referral 09/20/2022 10/20/2023 1 1 Reason Comments Established Patient Reason Comments Appointment Cancelled Reason Onset Date Comments Refill Request 10/24/2023 Reason Onset Date Comments Refill Request 03/17/2024 Specialty Diagnoses / Procedures [facility] Diagnoses Brain tumor (HCC) AL amyloidosis (HCC) Procedures MRI BRAIN WO/W IVCON MRI BRAIN BRAIN STEM W/O W/CONTRAST MATERIAL Mio Rogers MD [address] [place] [address] Mr Imaging [place] [address] Referral ID Status Reason Start Date Expiration Date Visits Requested Visits Authorized [id number] Authorized Auto-Generat ed Referral 12/24/2023 01/15/2025 1 1 Referral ID Status Reason Start Date Expiration Date V isits Requested Visits Authorized [id number] Closed Auto-Generate d Referral 12/24/2023 01/15/2025 1 1 Reason Comments Individualized Education Plan Aide - [facility] Reason Comments Spasticity Botulinum Toxin Injections Specialty Diagnoses / Procedures [facility] To [facility] Neurology / PHYSICAL MEDICINE AND REHAB Diagnoses 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 Procedures BOTULINUM TOXIN A PER 1 UNIT INITIAL J0585 - BOTULINUM TOXIN A UP TO 400 UNITS EVERY 90 DAYS x 1 YEAR FOR SPASTICITY 53969 - CHEMODENERV 1 EXTREMITY 1-4 57408 - CHEMODENERV ADDL EXTREM 1-[place] [address] [place] [address] Patrick Bustamante MD [address] [place] [address] Referral ID Status Reason Start Date Expiration Date V isits Requested Visits Authorized [id number] Authorized 11/12/2023 11/23/2024 99 99 Specialty Diagnoses / Procedures [facility] To Contact Neurology / [facility]YSICAL [facility]ICINE [facility] REHAB Diagnoses 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) Procedures BOTULINUM TOXIN A PER 1 UNIT RENEWAL J0585 - BOTULINUM TOXIN A UP TO 400 UNITS EVERY 90 DAYS x 1 YEAR FOR SPASTICITY 53006 - CHEMODENERV 1 EXTREMITY 1-4 83946 - CHEMODENERV ADDL EXTREM 1-4 [place] [address] - CHEMODENERV 1 EXTREM 5/> [place] [address] EACH ADDITIONAL EXTREMITY, 5 [place] [address] [place] [address] Patrick Bustamante MD [address] [place] [address] Referral ID Status Reason Start Date Expiration Date V isits Requested Visits Authorized [id number] Authorized 12/15/2024 11/23/2025 99 99 Reason Comments post menopausal bleeding Care Teams (unrecognized sec tion and content) 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 Relationship Specialty Start Date End Date Erica Mercedes PCP - General Family Practice 11/05/12 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 Relationship Specialty Start Date End Date Erica Mercedes PCP - General Family Practice 11/05/12 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 Relationship Specialty Start Date End Date Erica Mercedes PCP - General Family Medicine 11/05/12 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 Relationship Specialty Start Date End Date Erica Mercedes PCP - General Family Medicine 11/05/12 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 Relationship Specialty Start Date End Date Erica Mercedes PCP - General Family Medicine 11/05/12 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 Relationship Specialty Start Date End Date Erica Mercedes PCP - General Family Medicine 11/05/12 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 Relationship Specialty Start Date End Date Erica Mercedes PCP - General Family Medicine 11/05/12 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 Relationship Specialty Start Date End Date Erica Mercedes PCP - General Family Medicine 11/05/12 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 Relationship Specialty Start Date End Date Erica Mercedes PCP - General Family Medicine 11/05/12 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 Relationship Specialty Start Date End Date Erica Mercedes PCP - General Family Medicine 11/05/12 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 Relationship Specialty Start Date End Date Erica Mercedes PCP - General Family Medicine 11/05/12 [place] [address] [place] [address] Specialty Individualized Education Plan Aide Hematology/Oncology 07/25/23 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 Relationship Specialty Start Date End Date Erica Mercedes PCP - General Family Medicine 11/05/12 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 Relationship Specialty Start Date End Date Erica Mercedes PCP - General Family Medicine 11/05/12 Mitzy Brush, MELVIN [address] [place] [address] Specialty Individualized Education Plan Aide Hematology/Oncology 07/25/23 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 Relationship Specialty Start Date End Date Erica Mercedes PCP - General Family Medicine 11/05/12 [place] [address] [place] [address] Specialty Individualized Education Plan Aide Hematology/Oncology 07/25/23 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 Relationship Specialty Start Date End Date Erica Mercedes PCP - General Family Medicine 11/05/12 Mitzy Brush, MELVIN [address] [place] [address] Specialty Individualized Education Plan Aide Hematology/Oncology 07/25/23 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 Relationship Specialty Start Date End Date Erica Mercedes PCP - General Family Medicine 11/05/12 Mitzy Brush, MELVIN [address] [place] [address] Specialty Individualized Education Plan Aide Hematology/Oncology 07/25/23 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 Relationship Specialty Start Date End Date Erica Mercedes PCP - General Family Medicine 11/05/12 Mitzy Brush, MELVIN [id number] [address] Specialty Individualized Education Plan Aide Hematology/Oncology 07/25/23 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 Relationship Specialty Start Date End Date Erica Mercedes PCP - General Family Medicine 11/05/12 Mitzy Brush, MELVIN [id number] [address] Specialty Individualized Education Plan Aide Hematology/Oncology 07/25/23 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 Relationship Specialty Start Date End Date Erica Mercedes PCP - General Family Medicine 11/05/12 Mitzy Brush [place] [phone] [place] [address] Specialty Individualized Education Plan Aide Hematology/Oncology 07/25/23 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 Relationship Specialty Start Date End Date Erica Mercedes PCP - General Family Medicine 11/05/12 Mitzy Brush, MELVIN [address] [place] [address] Specialty Individualized Education Plan Aide Hematology/Oncology 07/25/23 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 Relationship Specialty Start Date End Date Erica Mercedes PCP - General Family [facility] 11/05/12 Mitzy Brush, MELVIN [address] [place], [place] [id number] Specialty Individualized Education Plan Aide Hematology/Oncology 07/25/23 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 Relationship Specialty Start Date End Date Erica Mercedes PCP - General Family [facility] 11/05/12 Mitzy Brush, MELVIN [address] [place], [place] [phone] Specialty Individualized Education Plan Aide Hematology/Oncology 07/25/23 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 Relationship Specialty Start Date End Date Darrell Erica Isa PCP - [facility] 11/05/12 [place] [address] [place], [place] [phone] Specialty Individualized Education Plan Aide Hematology/Oncology 07/25/23 FOR RECORDS PERTAINING TO PATIENTS WHO ARE OR HAVE BEEN ENROLLED IN A CHEMICAL DEPENDENCY/SUBSTANCEABUSE PROGRAM, SOME INFORMATION MAY BE OMITTED. This clinical summary was aggregated from multiple sources. Caution should be exercised in using it in the provision of clinical care. This summary normalizes information from multiple sources, and as a consequence, information in this document may materially change the coding, format and clinical context of patient data. In addition, data may be omitted in some cases. CLINICAL DECISIONS SHOULD BE BASED ON THE PRIMARY CLINICAL RECORDS. [facility]. provides no warranty or guarantee of the accuracy or completeness of information in this document.
== END 2024-12-28 09:05 | disposition home or self-care (01) ==
LOC: PST 09:05
PROVIDERS: PCP Nurse Practitioner; Visit Provider Obstetrics & Gynecology
DX: Z01.810 Encounter for preprocedural cardiovascular examination (principal); N95.0 Postmenopausal bleeding; N85.8 Other specified noninflammatory disorders of uterus
CPT/HCPCS: 93005

== ENCOUNTER 2024-12-31 08:49 | Day surgery (SDC) | payer MEDICARE, SELFPAY ==
[2024-12-28 09:36] VITALS: BP 139/81; PULSE 68; TEMP 36.6; O2SAT 100; BMI 31.5
[2024-12-31 09:02] LABS: Basophils Absolute Auto 0.1 10^3/uL (0.0-0.1); Basophils Percent Auto 0.8 % (0.2-2.0); Eosinophils Absolute Auto 0.1 10^3/uL (0.0-0.7); Eosinophils Percent Auto 2.4 % (0.9-7.0); Hematocrit 43.8 % (36.0-48.0); Hemoglobin 13.9 g/dL (12.0-16.0); Lymphocytes Absolute Auto 1.8 10^3/uL (1.2-3.8); Mean Corpuscular HGB Conc 31.7 g/dL (29.9-35.2); Mean Corpuscular Hemoglobin 28.1 pg (26.7-34.0); Mean Corpuscular Volume 88.5 fL (81.0-99.0); Mean Platelet Volume 11.8 fL (9.5-13.5); Monocytes Absolute Auto 0.6 10^3/uL (0.3-0.8); Monocytes Percent Auto 9.6 % (1.7-12.0); Neutrophils Absolute Auto 3.3 10^3/uL (1.4-6.5); Neutrophils Percent Auto 56.2 % (43.0-75.0); Platelet Count 281 10^3/uL (150-450); Red Blood Count 4.95 10^6/uL (4.20-5.40); Red Cell Distribution Width 12.7 % (11.0-15.0); White Blood Count 5.9 10^3/uL (4.0-11.0)
--- OUTSIDE RECORDS SUMMARY | 2024-12-31 09:07 | XMS_ITS | CCD ---
Author Organization [facility] Care Team Providers Care Sponge Hooker Name Role Phone MISC, DOCTOR Primary Care Unavailable NICOLA JOHNSON Admitting Unavailable NICOLA JOHNSON Attending Unavailable NICOLA JOHNSON Consulting Unavailable YAMILETH LONGO Consulting Unavailable TEREZA RAMÍREZ Consulting Unavailable Kelley Gómez Primary Care Physician [phone] Erica Mercedes Primary Care Provider Erica Mercedes Primary Care Provider Erica Mercedes Primary Care Provider Ara Vanegas Primary Care Physician Gonsalo CHARLES, Mitzy Unavailable Erica Mercedes Primary Care Provider Jackie Pop V Unavailable Unavailable Guilherme, Ara Cote Attending Unavailable Guilherme, Ara Cote Attending Unavailable Guilherme, Ara Cote Attending Unavailable Orzech, Elo Michel Attending Unavailable Orzech, Elo Mihcel Attending Unavailable Guilherme, rAa Cote Attending Unavailable Guilherme, Ara Cote Admitting Unavailable [...] PATRICK Attending Unavailable BUSTAMANTE, PATRICK Referring Unavailable BUSTAMANTESUMITPATIRCK Attending Unavailable ERICA MERCEDES Primary Care Unava [...] (1 source) Morphine Drug Allergy 6 Hives [facility] (4 sources) Morphine; Translations: [morphine] Drug Allergy 4 [facility] (20 sources) Morphine; Translations: [morphine] Drug Allergy 6 Eruption of skin (disorder), Hives, Rash [facility] (5 sources) Bee/Wasp/Ant venom; Translations: [Bee Stings] Propensity to adverse reactions to substance Swelling (finding) [facility] [place] (4 sources) Honey bee venom Propensity to adverse reactions 5 Swelling [facility] Medications Current Medications Medication Drug Class(es) Dates Sig (Normalized) Sig (Original) 0.5 ML tirzepatide 10 MG/ML Auto-Injector [Mounjaro] (3 sources) Start: 02-25-2024 inject 5 mg by subcutaneous injection every week Mounjaro 5 mg/0.5 mL subcutaneous solution 5 mg, SubCutaneous, qWeek, # 4 EA, Refills(s) 2, Pharmacy: [facility], 178, cm, 02/25/24 11:11:00 EDT, [...] day(s), # 21 cap(s), Refills(s) 0, Pharmacy: [facility]/pharmacy #[id number], 178, cm, 03/17/24 12:53:00 EDT, Height/Length Dosing, 106.8, kg, 03/17/24 12:53:00 EDT, Weight Dosing Start Date: 03/17/24 Stop Date: 03/24/24 Status: Ordered Capmist DM 15 mg-400 mg-60 mg oral tablet (3 sources) Start: 4 Capmist DM 15 mg-400 mg-60 mg oral tablet 1 tab(s), Oral, q4hr, 30 tab(s), Refill(s) 0, not to exceed 4 doses/day, [facility]/pharmacy #[id number], 178, cm, 03/17/24 12:53:00 EDT, Height/Length Dosing, 106.8, kg, 03/17/24 12:53:00 EDT, Weight Dosing Start Date: 03/17/24 Status: Ordered cephalexin 500 mg oral capsule (8 sources) Cephalosporin Antibacterial Start: 2 take 1 capsule by mouth twice daily Keflex 500 mg Cap 500 mg = 1 cap(s), Oral, BID, Start the day prior to procedure, # 14 cap(s), Refills(s) 0, Pharmacy: [facility]/pharmacy #[id number], 177, cm, 04/17/22 14:39:00 EDT, Height/Length Dosing, 77, kg, 04/17/22 14:39:00 EDT, Weight Dosing Start Date: 09/19/22 Status: Ordered Start: 04-17-2022 End: 04-27-2022 take 1 capsule by mouth every twelve hours Keflex 500 mg Cap 500 mg = 1 cap(s), Oral, q12hr, X 10 day(s), # 20 cap(s), Refills(s) 0, Pharmacy: [facility]/pharmacy #[id number], 177, cm, 04/17/22 14:39:00 EDT, Height/Length Dosing, 77, kg, 04/17/22 14:39:00 EDT, Weight Dosing Start Date: 04/17/22 Stop Date: 04/27/22 Status: Ordered Start: 02-11-2022 take 1 capsule by mo [facility] twice daily Keflex 500 mg Cap 500 mg = 1 cap(s), Oral, BID, Start the day prior to procedure, # 14 cap(s), Refills(s) 0, [id number] 175, cm, 02/11/22 13:14:00 EDT, Height/Length [...] Comment on above: Take 1 tablet by [facility] once daily. Excedrin Extra Strength (3 [...] Daily, # 30 tab(s), Refills(s) 3, [facility], 178, cm, 01/14/24 10:21:00 EST, Height/Length [...] Daily, # 30 tab(s), Refills(s) 0, Pharmacy: [facility]/pharmacy #[id number], 180, cm, 07/29/24 8:33:00 EDT, Height/Length Dosing, 106.2, kg, 07/29/24 8:33:00 EDT, Weight Dosing Start Date: 07/29/24 Status: Ordered Start: 05-25-2024 take 1 tablet by rahel th once daily phentermine 37.5 mg Tab 37.5 mg = 1 tab(s), Oral, Daily, # 30 tab(s), Refills(s) 0, Pharmacy: [facility] #72, 180, cm, 05/25/24 10:36:00 EDT, Height/Length Dosing, 108, kg, 05/25/24 10:36:00 EDT, Weight Dosing Start Date: 05/25/24 Status: Ordered Start: 08-12-2023 take 1 tablet by rahel once daily phentermine 37.5 mg Tab 37.5 mg = 1 tab(s), Oral, Daily, # 30 tab(s), Refills(s) 0, Pharmacy: [facility] #[facility], 177, cm, 08/12/23 11:53:00 EDT, Height/Length Dosing, 109.9, kg, 08/12/23 11:53:00 EDT, Weight Dosing Start Date: 08/12/23 Status: Ordered sulfamethoxazole 800 mg / trimethoprim 160 mg oral tablet (1 source) Dihydrofolate Reductase Inhibitor Antibacterial, Sulfonamide Antimicrobial Start: 07-29-2024 End: 08-05-2024 sulfamethoxazole-trimethopri m 800 mg-160 mg Tab 1 tab(s), Oral, BID for 7 day(s), 14 tab(s), Refill(s) 0, [facility]/pharmacy #[id number], 180, cm, 07/29/24 8:33:00 EDT, Height/Length [...] BID, # 20 tab(s), Refills(s) 0, Pharmacy: [facility]/pharmacy #[id number], 178, cm, 03/17/24 12:53:00 EDT, Height/Length Dosing, 106.8, kg, 03/17/24 12:53:00 EDT, Weight Dosing Start Date: 03/19/24 Status: Ordered vibegron 75 MG Oral Tablet [Gemtesa] (5 sources) Start: 06-01-2024 take 1 tablet by mouth once daily Gemtesa 75 mg oral tablet 75 mg = 1 tab(s), Oral, Daily, # 90 tab(s), Refills(s) 3, [id number], cm, 06/01/24 14:27:00 EDT, Height/Length Dosing, 103, kg, 06/01/24 14:27:00 EDT, Weight Dosing Start Date: 06/01/24 Status: Ordered Start: 03-23-2024 take 1 tablet by rahel once daily Gemtesa 75 mg oral tablet 75 mg = 1 tab(s), Oral, Daily, # 30 tab(s), Refills(s) 6, Pharmacy: [facility]/pharmacy #[id number], 180, cm, 03/23/24 14:37:00 EDT, Height/Length Dosing, 103.6, kg, 03/23/24 14:37:00 EDT, Weight Dosing Start Date: 03/23/24 Status: Ordered Vitamin B-12 1000 mcg oral tablet (8 sources) Start: 07-24-2023 take 1 tablet by mouth once daily Vitamin B-12 1000 mcg oral tablet 1,000 mcg = 1 tab(s), Oral, Daily, # 30 tab(s), Refills(s) 5, [facility] 177, cm, 07/22/23 13:10:00 EDT, Height/Length Dosing, 102, kg, 07/22/23 13:10:00 EDT, Weight Dosing Start Date: 07/24/23 Status: Ordered Start: 06-24-2023 take 1 tablet by [facility] once daily Vitamin B-12 1000 mcg oral tablet 1,000 mcg = 1 tab(s), Oral, Daily, # 30 tab(s), Refills(s) 0, Pharmacy: [facility]/pharmacy #[id number], 176.8, cm, 06/24/23 11:25:00 EDT, Height/Length Dosing, 106.5, kg, 06/24/23 11:25:00 EDT, Weight Dosing Start Date: 06/24/23 Status: Ordered Completed/Discontinued Medications Medication Drug Class(es) Dates Sig (Normalized) Sig (Original) acetaminophen 325 mg / HYDROcodone bitartrate 5 mg oral tablet (3 sources) Opioid Agonist End: 12-22-2024 HYDROcodone-aceta minophen ([place]) 5-325 MG tablet every 6 (six) hours. [...] Name Value Interpretation Reference Range Facil ity ECG 12-LEADon 12-28-2024 [place] [address] Electrocardiograph Report Signed Patient: MONIKA HASKINS MR#: [id number] : 1970 Acct:[id number] Age/Sex: 54 / F ADM Date: 12/28/24 Loc: [facility] Attending Dr: Carter Agosto D.O. Ordering Physician: Carter Agosto D.O. 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 Signed By: 12/28/241941 DD/ 7 TD/TT: Battery Starter: [facility] Radiology, Radiologist, MD - 12/28/2024 [place] [address] Electrocardiograph Report Signed Patient: MONIKA HASKINS MR#: [id number] : 1970 Acct:[id number] Age/Sex: 54 / F ADM Date: 12/28/24 Loc: [facility] Attending Dr: Carter Agosto D.O. Ordering Physician: Carter Agosto D.O. 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 Signed By: 12/28/241941 DD/ 7 TD/TT: Battery Starter: [facility] Radiology Study observation (narrative) [facility] ECG 12-LEADOrdered By: Radio logist Radiology on 12-28-2024 [facility] Work Phone: ALL LDHon 12-23-2024 LDH [Catalytic activity/Vol] 183 U/L 81 - 234 U/L [facility] CNOVon 12-15-2024 CNOV Office Visit (REHAV) MONIKA HASKINS ([id number]) 1970 F Date Time Provider Department 12/15/24 1:00 PM PATRICK BUSTAMANTE REHAV During your visit today, we recorded the following information about you: Pulse Blood pressure 90/minute 122/79 Patrick Bustamante MD 12/14/2024 12:10 PM Signed You have received botulinum toxin injections today. The skin around the site of injections should be monitored for a couple of days. If redness or swelling occur, the skin should be examined by a health gericare aide to rule out infection. If you experience pain in the muscles injected over the next few days, you can take Tylenol to control the pain (unless contra-indicated). Please call our office at [phone] with any questions or concerns. MD Dianna [...] risks, be (more content not included)... Normal [facility] Office/Clini c Noteon 11-09-2024 Family Medicine [...] Daily, # 30 tab(s), Refills(s) 0, Pharmacy: [facility]/pharmacy #[id number], 180, cm, 11/09/24 10:37:00 EST, Height/Length Dosing, 102.2, kg, 11/09/24 10:37:00 EST, Weight Dosing phentermine, 37.5 mg = 1 tab(s), Oral, Daily, # 30 tab(s), Refills(s) 0, Pharmacy: [facility]/pharmacy #6177, 180, cm, 10/12/24 10:29:00 EST, Height/Length [...] Heart diseas (more content not included)... Normal [facility] Comment on above: Result Comment: Elec tronically Signed By: Ara Michelle\.br\Date and Time Signed: 11/09/24 12:01 EST Ambulatory Visit Summaryon 12-12-2023 Ambulatory Visit Summary Ambulatory Visit Summary [...] 10:20 AM EST With: Ara Michelle Where: [address] [address]- 2024 9:30 AM EST With: Where: [address] [id number]- Medications What How Much When Why Instructions [...] you for choosing us for your care. Normal [facility] Family Medicine Office/Clini c Noteon 10-12-2024 Family [...] q24hr, # 30 tab(s), Refills(s) 2, [id number], 180, cm, 10/12/24 10:29:00 EST, Height/Length Dosing, 104.6, kg, 10/12/24 10:29:00 EST, Weight Dosing phentermine, 37.5 mg = 1 tab(s), Oral, Daily, # 30 tab(s), Refills(s) 0, Pharmacy: [facility]/pharmacy #6177, 180, cm, 09/14/24 10:06:00 EDT, Height/Length Dosing, 107.8, kg, 09/14/24 10:06:00 EDT, Weight Dosing phentermine, 37.5 mg = 1 tab(s), Oral, Daily, # 30 tab(s), Refills(s) 0, Pharmacy: [facility] #6177, 180, cm, 10/12/24 10:29:00 EST, Height/Length [...] q24hr, # 30 tab(s), Refills(s) 2, [facility], cm, 10/12/24 10:29:00 EST, Height/Length Dosing, 104.6, kg, 10/12/24 10:29:00 EST, Weight Dosing 3. Non-smoker (Z78.9: Other specified health status) continue not smoking Ordered: buPROPion, 150 mg = 1 tab(s), Oral, q24hr, # 30 tab(s), Refills(s) 2, [facility] 180, cm, 10/12/24 10:29:00 EST, Height/Length Dosing, 104.6, kg, 10/12/24 10:29:00 EST, Weight Dosing topiramate, 25 mg = 1 tab(s), Oral, Daily, # 90 tab(s), Refills(s) 1, [facility], 180, cm, 09/14/24 10:06:00 EDT, Height/Length Dosing, 107.8, kg, 09/14/24 10:06:00 EDT, Weight Dosing 4. BMI 32.0-32.9,adult (Z68.32: Body mass index [BMI] 32.0-32.9, adult) BMI education. pt is down 7 more pounds Ordered: buPROPion, 150 mg = 1 tab(s), Oral, q24hr, # 30 tab(s), Refills(s) 2, Pharmacy: [facility]/pharm[facility] #6177, 180, cm, 10/12/24 10:29:00 EST, Height/Length Dosing, 104.6, kg, 10/12/24 10:29:00 EST, Weight Dosing 5. Exogenous obesity (E66.09: Other obesity due to excess calories) see above Ordered: buPROPion, 150 mg = 1 tab(s), Oral, q24hr, # 30 tab(s), Refills(s) 2, [facility], 180, cm, 10/12/24 10:29:00 EST, Height/Length Dosing, 104.6, kg, 10/12/24 10:29:00 EST, Weight Dosing Orders: topiramate, 50 mg = 1 tab(s), Oral, BID, # 60 tab(s), Refills(s) 2, [facility] 180, cm, 10/12/24 10:29:00 EST, Height/Length [...] wall (11/10/2018), (more content not included)... Normal [facility] Comment on above: Result Comment: Elec tronically Signed By: Ara Michelle\.br\Date and Time Signed: 10/12/24 10:49 EST Family Medicine Office/Clini c Noteon 09-14-2024 Family Medicine Office/Clinic Note Family Medicine Office/Clinic Note HPI Staff Monika is a 54 year old female presenting with weight Started phentermine 37.5mg qd 07/02/24. Prior to that had been taking semaglutide [...] Daily, # 30 tab(s), Refills(s) 0, Pharmacy: [facility]/pharmacy #6177, 180, cm, 09/14/24 10:06:00 EDT, Height/Length Dosing, 107.8, kg, 09/14/24 10:06:00 EDT, Weight Dosing phentermine, 37.5 mg = 1 tab(s), Oral, Daily, # 30 tab(s), Refills(s) 0, Pharmacy: [facility]/pharmacy #6177, 180, cm, 07/29/24 8:33:00 EDT, Height/Length Dosing, 106.2, kg, 07/29/24 8:33:00 EDT, Weight Dosing 2. BMI 33.0-33.9,adult (Z68.33: Body mass index [BMI] 33.0-33.9, adult) BMI education given Ordered: topiramate, 25 mg = 1 tab(s), Oral, Daily, # 90 tab(s), Refills(s) 1, [facility] 180, cm, 09/14/24 10:06:00 EDT, Height/Length Dosing, 107.8, kg, 09/14/24 10:06:00 EDT, Weight Dosing 3. Non-smoker (Z78.9: Other specified health status) continue not smoking Ordered: topiramate, 25 mg = 1 tab(s), Oral, Daily, # 90 tab(s), Refills(s) 1, [facility] 180, cm, 09/14/24 10:06:00 EDT, Height/Length Dosing, 107.8, kg, 09/14/24 10:06:00 EDT, Weight Dosing Orders: estradiol, 1 mg = 1 tab(s), Oral, Daily, # 90 tab(s), Refills(s) 1, [facility], 180, cm, 09/14/24 10:06:00 EDT, Height/Length [...] History [place] (more content not included)... Normal [facility] Comment on above: Result Comment: Elec tronically Signed By: Ara Michelle.mark\Date and Time Signed: 09/14/24 10:37 EDT Dar[place] 2024 CNOV Office Visit (REHAV) MONIKA HASKINS ([id number]) 1970 F Date Time Provider Department 09/08/24 [...] skin should be examined by a health gericare aide to rule out infection. If you experience pain in the muscles injected over the next few days, you can take Tylenol to control the pain (unless contra-indicated). Please call our office at [phone] with any questions or concerns. MD Dianna [...] - 10/25 (more content not included)... Normal [facility] C Urineon 07-31-2024 Bacteria identified Cx Nom (U) Microbiology PROCEDURE: Urine Culture [R1] SOURCE: U CleanCatch BODY SITE: COLLECTED DATE/TIME: 07/29/2024 08:54 EDT RECEIVED DATE/TIME: 07/29/2024 18:41 EDT START DATE/TIME: 07/29/2024 18:41 EDT FREE TEXT SOURCE: Guilherme WILL, Ara WILL, Ara Cote FINAL REPORTS Final Report [] [...] Locations R1: This test was performed at: [facility], [address] [place] [address], [facility] , , Normal [facility] Comment on above: Performed By: #### [id number] #### [facility] [address] [place] [address] Family Medicine Office/Clini c Noteon 07-29-2024 Family [...] Daily, # 30 tab(s), Refills(s) 0, Pharmacy: [facility]/pharmacy #[id number], 180, cm, 06/01/24 14:27:00 EDT, Height/Length Dosing, 103, kg, 06/01/24 14:27:00 EDT, Weight Dosing phentermine, 37.5 mg = 1 tab(s), Oral, Daily, # 30 tab(s), Refills(s) 0, Pharmacy: [facility]/pharmacy #6177, 180, cm, 07/29/24 8:33:00 EDT, Height/Length Dosing, 106.2, kg, 07/29/24 8:33:00 EDT, Weight Dosing Urine Culture Urnls Dip Stick Non-Auto w/o Micrscpy POC 94666 2. Dysuria (R30.0: Dysuria) u/a+ will send for culture. bactrim sent Ordered: Urine Culture 3. Non-smoker (Z78.9: Other specified health status) continue not smoking Ordered: Urine Culture Urnls Dip Stick Non-Auto w/o Micrscpy POC 00279 4. BMI 32.0-32.9,adult (Z68.32: Body mass index [BMI] 32.0-32.9, adult) BMI eduction Ordered: Urine Culture Urnls Dip Stick Non-Auto w/o Micrscpy POC 22162 5. Class 1 obesity due to excess calories in adult (E66.09: Other obesity due to excess calories) see above Ordered: Urine Culture Urnls Dip Stick Non-Auto w/o Micrscpy POC 80343 Orders: sulfamethoxazole-trim ethoprim, 1 tab(s), Oral, BID for 7 day(s), 14 tab(s), Refill(s) 0, [facility]/pharm[facility] #[id number], 180, cm, 07/29/24 8:33:00 EDT, Height/Length [...] (Rash) S (more content not included)... Normal [facility] Comment on above: Result Comment: Elec tronically Signed By: Ara Michelle\.br\Date and Time Signed: 07/29/24 10:20 EDT Reminderson 07-23-2024 Reminders Reminders From: Yaz Childress To: EU - Recalls Blas; Sent: 03/24/2024 09:11:40 EDT Show up: 06/24/2024 09:11:00 EDT Subject: Botox Due Date/Time: 07/19/2024 09:11:00 EDT Reminder/Recall Pt needs Botox Jul /Aug Patient seen in May 2024, will wait on botox. Currently getting for her arm. New med started for bladder.[facility] Reminderson 06-01-2024 Reminders Reminders From: Rosa Zimmer To: EU - Administrative; Sent: 06/01/2024 14:42:40 EDT Show up: 03/02/2025 14:42:00 EDT Subject: Appointment call back Due Date/Time: 06/01/2025 14:42:00 EDT Reminder/Recall Patient is a one year follow up with Manpreet Normal [facility] Urology Office/Clinic Noteon 06-01-2024 Urology Office/Clinic Note [...] with voice recognition artificial intelligence software, specifically [employer], [employer] and or [employer]. Substitutions may have occurred due to the [...] Daily, # 90 tab(s), Refills(s) 3, Pharmacy: [facility]/pharmacy #[id number], 180, cm, 06/01/24 14:27:00 EDT, Height/Length Dosing, 103, kg, 06/01/24 14:27:00 EDT, Weight Dosing 2. Enuresis (R32: Unspecified urinary incontinence) See #1 UA today with trace intact blood, no signs of infection. Patient denies any episode of gross hematuria or urinary infection since prior office visit. Ordered: vibegron, 75 mg = 1 tab(s), Oral, Daily, # 90 tab(s), Refills(s) 3, Pharmacy: [facility]/pharmacy #[id number], 180, cm, 06/01/24 14:27:00 EDT, Height/Length Dosing, 103, kg, 06/01/24 14:27:00 EDT, Weight Dosing Urnls Dip Stick Auto w/o Microscopy POC 77024 Follow-up With When Contact Information Orzech FAMILY DINNER SERVICE SPECIALIST, GROUND CONTROL APPROACH TECHNICIAN-C, Elo X, FAM, URL Additional Instructions: 1 year Patient [...] injection Capmist (more content not included)... Normal [facility] Comment on above: Result Comment: Elec eusebioally Signed By: DIANA Case APRN, Aurora X\.mark\Date and Time Signed: 06/01/24 15:03 EDT ALESHAon 05-26-2024 CNOV Office Visit (REHAV) MONIKA HASKINS ([id number]) 1970 F Date Time Provider Department 05/26/24 1:00 PM PATRICK BUSTAMANTE REHAV During your visit today, we recorded the following information about you: Pulse Blood pressure 93/minute 124/80 Patrick Bustamante MD 05/25/2024 5:14 PM Signed You have received botulinum toxin injections today. The skin around the site of injections should be monitored for a couple of days. If redness or swelling occur, the skin should be examined by a health gericare aide to rule out infection. If you experience pain in the muscles injected over the next few days, you can take Tylenol to control the pain (unless contra-indicated). Please call our office at [phone] with any questions or concerns. MD Dianna [...] were expla (more content not included)... Normal [facility] Ambulatory Visit Summaryon 0 05-25-2024 Ambulatory Visit Summary Ambulatory Visit Summary MONIKA [...] APRN, Elo Michel Where: [facility] Invalid Interpretation Code [address] [place] [address]- \.br\ 2024 9:30 AM EST \.br\ With:\.br\ Where: [facility] Family Medicine [facility] Family Medicine Office/Clini c Noteon 05-25-2024 Family Medicine [...] to afford it. will send adipex to [facility]. medication agreement signed. RTC 4 weeks Ordered: phentermine, 37.5 mg = 1 tab(s), Oral, Daily, # 30 tab(s), Refills(s) 0, Pharmacy: [facility], 180, cm, 05/25/24 10:36:00 EDT, Height/Length [...] TPV40 influe (more content not included)... Normal [facility] Comment on above: Result Comment: Elec tronically Signed By: Ara Michelle\Date and Time Signed: 05/25/24 10:52 EDT Jessica 05-07-2024 CNPN Telephone (HEMACA) MONIKA HASKINS ([id number]) 1970 F Date Time Provider Department 05/07/24 MIO ROGERS During your visit today, we recorded the following information about you: Blanca Lee 05/07/2024 10:45 AM Signed Monika Haskins is calling Mio Rogers MD today regarding Stone Paver - Other ([place] Franco Form ) Patient has been identified by name and birthdate. Patient called to enquire if we have received the [employer] Franco Form faxed to us minutes ago, I checked and informed her yes. She requested it to be filled and faxed back over today. The fax was forwarded over to the [facility] nurses. Patient can be reached at: [phone] (home) Blanca Lee May 07, 2024 Allergies As of Date: 05/07/2024 Noted Allergy Reaction MORPHINE 11/24/2015 4 - Hives Comments: Pt had a morphine injection and broke out in hives, with itching Date Reviewed: 04/16/2024 Reviewed by: Maryann Loza LPN - Fully Assessed Reason for Visit: Stone Paver - Other [5036] Cmt: [place] Franco Form Prescriptions as of 05/07/2024 - [...] Status:Closed by BLANCA LEE on 05/07/24 Normal [facility] CBC W Auto Differential pane l (Bld)on 04-16-2024 Basophils (Bld) [#/Vol] 0.04 10*3/uL Normal <0.11 [facility] Comment on above: Order Comment: Speci men Type: BLOOD SPECIMENOrdering Facility: [facility] Address: [address] [place] [address] Performed By: #### 5 7021-8 ####[facility] [id number] [place] [address] [place] Basophils/100 WBC (Bld) 0.5 % Normal [facility] Comment on above: Order Comment: Speci men Type: BLOOD SPECIMENOrdering Facility: [facility] Address: [address] [place] [address] Performed By: #### 5 7021-8 ####[facility] [id number] [place] [address] [place] Differential cell count method Nom (Bld) Auto Normal [facility] Comment on above: Order Comment: Speci men Type: BLOOD SPECIMENOrdering Facility: [facility] Address: [address] [place] [address] Performed By: #### 5 7021-8 ####[facility] [id number] [place] [address] [place] Eosinophils (Bld) [#/Vol] 0.14 10*3/uL Normal <0.46 [facility] Comment on above: Order Comment: Speci men Type: BLOOD SPECIMENOrdering Facility: [facility] Address: [address] [place] [address] Performed By: #### 5 7021-8 ####[facility] [id number] [place] [address] [place] Eosinophils/100 WBC (Bld) 1.8 % Normal [facility] Comment on above: Order Comment: Speci men Type: BLOOD SPECIMENOrdering Facility: [facility] Address: [address] [place] [address] Performed By: #### 5 7021-8 ####[facility] [id number] [place] [address] [place] Erythrocyte distribution width (RBC) [Ratio] 13.1 % Normal 11.5-15.0 [facility] Comment on above: Order Comment: Speci men Type: BLOOD SPECIMENOrdering Facility: [facility] Address: [address] [place] [address] Performed By: #### 5 7021-8 ####[facility] [id number] [place] [address] [place] Hematocrit (Bld) [Volume fraction] 41.9 % Normal 36.0-46.0 [facility] Comment on above: Order Comment: Speci men Type: BLOOD SPECIMENOrdering Facility: [facility] Address: [address] [place] [address] Performed By: #### 5 7021-8 ####[facility] [id number] [place] [address] [place] Hemoglobin (Bld) [Mass/Vol] 13.9 g/dL Normal 11.5-15.5 [facility] Comment on above: Order Comment: Speci men Type: BLOOD SPECIMENOrdering Facility: [facility] Address: [address] [place] [address] Performed By: #### 5 7021-8 ####[facility] [id number] [place] [address] [place] Immature granulocytes (Bld) [#/Vol] 10*3/uL Normal <0.10 [facility] Comment on above: Order Comment: Speci men Type: BLOOD SPECIMENOrdering Facility: [facility] Address: [address] [place] [address] Performed By: #### 5 7021-8 ####[facility] [id number] [place] [address] [place] Immature granulocytes/100 WBC (Bld) 0.3 % Normal [facility] Comment on above: Order Comment: Speci men Type: BLOOD SPECIMENOrdering Facility: [facility] Address: [address] [place] [address] Performed By: #### 5 7021-8 ####[facility] [id number] [place] [address] [place] Lymphocytes (Bld) [#/Vol] 1.77 10*3/uL Normal 1.00-4.00 [facility] Comment on above: Order Comment: Speci men Type: BLOOD SPECIMENOrdering Facility: [facility] Address: [address] [place] [address] Performed By: #### 5 7021-8 ####[facility] [id number] [place] [address] [place] Lymphocytes/100 WBC (Bld) 22.2 % Normal [facility] Comment on above: Order Comment: Speci men Type: BLOOD SPECIMENOrdering Facility: [facility] Address: [address] [place] [address] Performed By: #### 5 7021-8 ####[facility] [id number] [place] [address] [place] MCH (RBC) [Entitic mass] 28.5 pg Normal 26.0-34.0 [facility] Comment on above: Order Comment: Speci men Type: BLOOD SPECIMENOrdering Facility: [facility] Address: [address] [place] [address] Performed By: #### 5 7021-8 ####[facility] [id number] [place] [address] [place] MCHC (RBC) [Mass/Vol] 33.2 g/dL Normal 30.5-36.0 [facility] Comment on above: Order Comment: Speci men Type: BLOOD SPECIMENOrdering Facility: [facility] Address: [address] [place] [address] Performed By: #### 5 7021-8 ####[facility] [id number] [place] [address] [place] MCV (RBC) [Entitic vol] 86.0 fL Normal 80.0-100.0 [facility] Comment on above: Order Comment: Speci men Type: BLOOD SPECIMENOrdering Facility: [facility] Address: [address] [place] [address] Performed By: #### 5 7021-8 ####[facility] [id number] [place] [address] [place] Monocytes (Bld) [#/Vol] 0.61 10*3/uL Normal <0.87 [facility] Comment on above: Order Comment: Speci men Type: BLOOD SPECIMENOrdering Facility: [facility] Address: [address] [place] [address] Performed By: #### 5 7021-8 ####[facility] [id number] [place] [address] [place] Monocytes/100 WBC (Bld) 7.7 % Normal [facility] Comment on above: Order Comment: Speci men Type: BLOOD SPECIMENOrdering Facility: [facility] Address: [address] [place] [address] Performed By: #### 5 7021-8 ####[facility] [id number] [place] [address] [place] Neutrophils (Bld) [#/Vol] 5.38 10*3/uL Normal 1.45-7.50 [facility] Comment on above: Order Comment: Speci men Type: BLOOD SPECIMENOrdering Facility: [facility] Address: [address] [place] [address] Performed By: #### 5 7021-8 ####[facility] [id number] [place] [address] [place] Neutrophils/100 WBC (Bld) 67.5 % Normal [facility] Comment on above: Order Comment: Speci men Type: BLOOD SPECIMENOrdering Facility: [facility] Address: [address] [place] [address] Performed By: #### 5 7021-8 ####[facility] [id number] [place] [address] [place] Nucleated RBC (Bld) [#/Vol] 10*3/uL Normal <0.01 [facility] Comment on above: Order Comment: Speci men Type: BLOOD SPECIMENOrdering Facility: [facility] Address: [address] [place] [address] Performed By: #### 5 7021-8 ####[facility] [id number] [place] [address] [place] Nucleated RBC/100 WBC (Bld) [Ratio] 0.0 /100 WBC Normal [facility] Comment on above: Order Comment: Speci men Type: BLOOD SPECIMENOrdering Facility: [facility] Address: [address] [place] [address] Performed By: #### 5 7021-8 ####[facility] [id number] [place] [address] [place] Platelet mean volume (Bld) [Entitic vol] 12.3 fL Normal 9.0-12.7 [facility] Comment on above: Order Comment: Speci men Type: BLOOD SPECIMENOrdering Facility: [facility] Address: [address] [place] [address] Performed By: #### 5 7021-8 ####[facility] [id number] [place] [address] [place] Platelets (Bld) [#/Vol] 233 10*3/uL Normal 150-400 [facility] Comment on above: Order Comment: Speci men Type: BLOOD SPECIMENOrdering Facility: [facility] Address: [address] [place] [address] Performed By: #### 5 7021-8 ####[facility] [id number] [place] [address] [place] RBC (Bld) [#/Vol] 4.87 10*6/uL Normal 3.90-5.20 [facility] Comment on above: Order Comment: Speci men Type: BLOOD SPECIMENOrdering Facility: [facility] Address: [address] [place] [address] Performed By: #### 5 7021-8 ####[facility] [id number] [place] [address] [place] WBC (Bld) [#/Vol] 7.96 10*3/uL Normal 3.70-11.00 [facility] Comment on above: Order Comment: Speci men Type: BLOOD SPECIMENOrdering Facility: [facility] Address: [address] [place] [address] Performed By: #### 5 7021-8 ####[facility] [id number] JULITO GONG [id number] STATES OF [facility] CNOVSPon 04-16-2024 CNOVSP Visit (SP) Office ([facility]) TRISTENMONIKA Wes ([id number]) 1970 F Date Time Provider Department 04/16/24 [...] and medical decision-making during today's encounter, 04/16/2024) [facility] Monika Haskins is a 53 year old female patient. 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 Overall she is doing well. 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 Normal [facility] Comprehensive metabolic 2000 panelon 04-16-2024 Albumin [Mass/Vol] 4.4 g/dL Normal 3.9-4.9 [facility] Comment on above: Order Comment: Speci men Type: BLOOD SPECIMENOrdering Facility: [facility] Address: [address] [place] [address] Performed By: #### 2 4323-8 ####[facility] [id number] [place] [address] [place] ALP [Catalytic activity/Vol] 53 U/L Normal 34-123 [facility] Comment on above: Order Comment: Speci men Type: BLOOD SPECIMENOrdering Facility: [facility] Address: [address] [place] [address] Performed By: #### 2 4323-8 ####[facility] [id number] [place] [address] [place] ALT [Catalytic activity/Vol] 8 U/L Normal 7-38 [facility] Comment on above: Order Comment: Speci men Type: BLOOD SPECIMENOrdering Facility: [facility] Address: [address] [place] [address] Performed By: #### 2 4323-8 ####[facility] [id number] [place] [address] [place] Anion gap [Moles/Vol] 12 mmol/L Normal 9-18 [facility] Comment on above: Order Comment: Speci men Type: BLOOD SPECIMENOrdering Facility: [facility] Address: [address] [place] [address] Performed By: #### 2 4323-8 ####[facility] [id number] [place] [address] [place] AST [Catalytic activity/Vol] 15 U/L Normal 13-35 [facility] Comment on above: Order Comment: Speci men Type: BLOOD SPECIMENOrdering Facility: [facility] Address: [address] [place] [address] Performed By: #### 2 4323-8 ####[facility] [id number] [place] [address] [place] Bilirubin [Mass/Vol] 0.3 mg/dL Normal 0.2-1.3 [facility] Comment on above: Order Comment: Speci men Type: BLOOD SPECIMENOrdering Facility: [facility] Address: [address] [place] [address] Performed By: #### 2 4323-8 ####[facility] [id number] [place] [address] [place] Calcium [Mass/Vol] 9.3 mg/dL Normal 8.5-10.2 [facility] Comment on above: Order Comment: Speci men Type: BLOOD SPECIMENOrdering Facility: [facility] Address: [address] [place] [address] Performed By: #### 2 4323-8 ####[facility] [id number] [place] [address] [place] Chloride [Moles/Vol] 105 mmol/L Normal 97-105 [facility] Comment on above: Order Comment: Speci men Type: BLOOD SPECIMENOrdering Facility: [facility] Address: [address] [place] [address] Performed By: #### 2 4323-8 ####[facility] [id number] [place] [address] [place] CO2 [Moles/Vol] 23 mmol/L Normal 22-30 [facility] Comment on above: Order Comment: Speci men Type: BLOOD SPECIMENOrdering Facility: [facility] Address: [address] [place] [address] Performed By: #### 2 4323-8 ####[facility] [id number] [place] [address] [place] Creatinine [Mass/Vol] 0.60 mg/dL Normal 0.58-0.96 [facility] Comment on above: Order Comment: Speci men Type: BLOOD SPECIMENOrdering Facility: [facility] Address: [address] [place] [address] Performed By: #### 2 4323-8 ####[facility] [id number] [place] [address] OF [facility] Creatinine and Glomerular filtration rate.predicted panel (S/P/Bld) 109 mL/min/1.73m??? Normal >=60 [facility] Comment on above: Order Comment: Speci men Type: BLOOD SPECIMENOrdering Facility: [facility] Address: [address] [place] [address] Result Comment: Maddie mated Glomerular Filtration Rate [...] By: #### 2 4323-8 ####[facility] [id number] [place] [address] [place] Glucose [Mass/Vol] 96 mg/dL Normal 74-99 [facility] Comment on above: Order Comment: Speci men Type: BLOOD SPECIMENOrdering Facility: [facility] Address: [address] [place] [address] Result Comment: The [place] [employer] (ADA) provides guidance for cutoff [...] Standards of Medical Care in Diabetes 2016, [place] [employer]. Diabetes Care. 2016.39(Suppl 1). Performed By: #### 2 4323-8 ####[facility] [id number] [place] [address] [place] Potassium [Moles/Vol] 4.1 mmol/L Normal 3.7-5.1 [facility] Comment on above: Order Comment: Roeli dilcia Type: BLOOD SPECIMENOrdering Facility: [facility] Address: [address] [place] [address] Performed By: #### 2 4323-8 ####[facility] [id number] [place] [address] [place] Protein [Mass/Vol] 7.6 g/dL Normal 6.3-8.0 [facility] Comment on above: Order Comment: Roeli men Type: BLOOD SPECIMENOrdering Facility: [facility] Address: [address] [place] [address] Performed By: #### 2 4323-8 ####[facility] [id number] [place] [address] [place] Sodium [Moles/Vol] 140 mmol/L Normal 136-144 [facility] Comment on above: Order Comment: Speci men Type: BLOOD SPECIMENOrdering Facility: [facility] Address: [address] [place] [address] Performed By: #### 2 4323-8 ####[facility] [id number] [place] [address] [place] Urea nitrogen [Mass/Vol] 14 mg/dL Normal 7-21 [facility] Comment on above: Order Comment: Speci men Type: BLOOD SPECIMENOrdering Facility: [facility] Address: [address] [place] [address] Performed By: #### 2 4323-8 ####[facility] [id number] [place] [address] [place] IMMUNOFIXATION SCREEN, SERUM on 04-16-2024 MPA RESULT No M protein is identified. Normal No M protein is identified. [facility] Comment on above: Order Comment: Speci men Type: BLOOD SPECIMENOrdering Facility: [facility] Address: [address] [place] [address] Performed By: #### I FESC ####[facility] [id number] [place] [address] [place] STAFF REVIEW (MPA) Reviewed by Dr. Edmundo Walden MD [facility] Comment on above: Order Comment: Speci men Type: BLOOD SPECIMENOrdering Facility: [facility] Address: [address] [place] [address] Performed By: #### I FESC ####[facility] [id number] [place] [address] [place] IMMUNOGLOBULINS,IGG,IGA,IGMo n 04-16-2024 IgA [Mass/Vol] 437 mg/dL High 70-400 [facility] Comment on above: Order Comment: Speci men Type: BLOOD SPECIMENOrdering Facility: [facility] Address: [address] [place] [address] Performed By: #### S ERIMM ####[facility] [id number] [place] [address] [place] IgG [Mass/Vol] 1140 mg/dL Normal 700-1600 [facility] Comment on above: Order Comment: Speci men Type: BLOOD SPECIMENOrdering Facility: [facility] Address: [address] [place] [address] Performed By: #### S ERIMM ####[facility] [id number] [place] [address] [place] IgM [Mass/Vol] 233 mg/dL High 40-230 [facility] Comment on above: Order Comment: Speci men Type: BLOOD SPECIMENOrdering Facility: [facility] Address: [address] [place] [address] Performed By: #### S ERIMM ####[facility] [id number] [place] [address] [place] KAPPA/BREWER,FREE,SERon 2023 Immunoglobulin light chains.kappa.free (S) [Mass/Vol] 19.4 mg/L Normal 3.3-19.4 [facility] Comment on above: Order Comment: Speci men Type: BLOOD SPECIMENOrdering Facility: [facility] Address: [address] [place] [address] Result Comment: Rare ly, increased serum free light chains levels may not be detected or accurately quantified due to prozone phenomenon or in high viscosity samples using this immunoturbidimetric assay. Correlation with other laboratory results and clinical findings is recommended. The Drumright Free Light Chain was performed using the Binding Site Optilite immunoturbidimetric method. Result obtained with different assay methods or kits cannot be used interchangeably. Performed By: #### K LFRS ####[facility] [id number] [place] [address] [place] Immunoglobulin light chains.kappa/Immuno globulin light chains.lambda (S) [Mass ratio] 1.13 Normal 0.26-1.65 [facility] Comment on above: Order Comment: Speci men Type: BLOOD SPECIMENOrdering Facility: [facility] Address: [address] [place] [address] Performed By: #### K LFRS ####[facility] [id number] [place] [address] [place] Immunoglobulin light chains.lambda.free [Mass/Vol] 17.1 mg/L Normal 5.7-26.3 [facility] Comment on above: Order Comment: Speci men Type: BLOOD SPECIMENOrdering Facility: [facility] Address: [address] [place] [address] Result Comment: Rare ly, increased serum free [...] used interchangeably. Performed By: #### K LFRS ####[facility] [id number] [place] [address] [place] MR Brain WO and W contrast I Von 04-16-2024 IMPRESSION: 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 Battery Starter: [facility] Transcribe Date/Time: Apr 16 2024 3:47P Dictated by : CHICO GUALLPA MD This examination was interpreted and the report reviewed and electronically signed by: CHICO GUALLPA MD on Apr 16 2024 3:57PM [facility] DIVISION OF RADIOLOGY * * *Final Report* * * DATE OF EXAM: Apr 16 2024 3:05PM CAM 0295 - MRI BRAIN WO/W IVCON / PROCEDURE REASON: multiple diagnoses * * * * Physician Interpretation * * * * EXAMINATION: MRI BRAIN WO/W IVCON CLINICAL HISTORY: Brain tumor (HCC) AL amyloidosis (HCC) - - - Primary neoplasm/metastasis/p ostop F/U - Brain/COOLER WORKER neoplasm, assess treatment response. Upon further review [...] tissues are unremarkable. DIVISION OF RADIOLOGY Provider, [facility] - 04/16/2024 * * *Final Report* * * DATE OF EXAM: Apr 16 2024 3:05PM CAM 0295 - MRI BRAIN WO/W IVCON / PROCEDURE REASON: multiple diagnoses * * * * Physician Interpretation * * * * EXAMINATION: MRI BRAIN WO/W IVCON CLINICAL HISTORY: Brain tumor (HCC) AL amyloidosis (HCC) - - - Primary neoplasm/metastasis/p ostop F/U - Brain/COOLER WORKER neoplasm, assess treatment response. 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 Battery Starter: PAUL Transcribe Date/Time: Apr 16 2024 3:47P Dictated by : CHICO GUALLPA MD This examination was interpreted and the report reviewed and electronically signed by: CHICO GUALLPA MD on Apr 16 2024 3:57PM EST [facility] Radiology Study observation (narrative) [facility] MR Brain WO and W contrast I VOrdered By: [facility] Provider on 04-16-2024 [facility] MRI BRAIN WO/W IVCONon 04-16 MRI BRAIN [...] - - Primary neoplasm/metastasis/p ostop F/U - Brain/COOLER WORKER neoplasm, assess treatment response. 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 Battery Starter: [facility] Transcribe Date/Time: Apr 16 2024 3:47P Dictated by : CHICO GUALLPA MD This examination was interpreted and the report reviewed and electronically signed by: CHICO GUALLPA MD on Apr 16 2024 3:57PM EST [id number] Normal [facility] Lab Reportson 03-24-2024 Lab Reports [id number] .[id number] Normal [facility] Ambulatory Visit Summaryon 0 03-23-2024 Ambulatory Visit Summary MONIKA HASKINS :1970 Visit Date:03/23/2024 Ambulatory Visit Instructions Your Diagnosis Overactive bladder Enuresis Your Care Team Attending Physician - DIANA Case APRN, [place] X Primary Care Physician - Ara Michelle This [...] APRN, Elo Michel Where: [facility] Invalid Interpretation Code [address] [place] [address]- \.br\ 2024 9:30 AM EST \.br\ With:\.br\ Where: [facility] Family Medicine [facility] Patient Educationon 03-23-20 Patient Education Obstetrics and [...] health care provider. General instructions ? Take mucy-yer-demdacm and prescription medicines only as told by [...] monitor yo (more content not included)... Normal [facility] Urology Office/Clinic Noteon 03-23-2024 Urology Office/Clinic Note [...] with voice recognition artificial intelligence software, specifically [employer], [employer] and or [employer]. Substitutions may have occurred due to the [...] Daily, # 30 tab(s), Refills(s) 6, Pharmacy: [facility]/pharmacy #[id number], 180, cm, 03/23/24 14:37:00 EDT, Height/Length Dosing, 103.6, kg, 03/23/24 14:37:00 EDT, Weight Dosing Urnls Dip Stick Auto w/o Microscopy POC 32012 2. Enuresis (R32: Unspecified urinary incontinence) Patient [...] (11/10/2018), Cystourethroscop (more content not included)... Normal [facility] Comment on above: Result Comment: Elec tronically Signed By: DIANA Case APRN, Elo Michel\.br\Date and Time Signed: 03/23/24 15:15 EDT Consenton 03-17-2024 Consent [id number] .[id number] Normal [facility] Family Medicine Office/Clini c Noteon 03-17-2024 [...] day(s), # 6 tab(s), Refills(s) 0, Pharmacy: [facility]/pharmacy #[id number], 178, cm, 03/17/24 12:53:00 EDT, Height/Length Dosing, 106.8, kg, 03/17/24 12:53:00 EDT, Weight Dosing benzonatate, 200 mg = 1 cap(s), Oral, TID, X 7 day(s), # 21 cap(s), Refills(s) 0, [id number] 178, cm, 03/17/24 12:53:00 EDT, Height/Length Dosing, 106.8, kg, 03/17/24 12:53:00 EDT, Weight Dosing dextromethorphan/guai fenesin/pseudoephedri ne, 1 tab(s), Oral, q4hr, 30 tab(s), Refill(s) 0, not to exceed 4 doses/day[id number] 178, cm, 03/17/24 12:53:00 EDT, Height/Length Dosing, 106.8, kg, 03/17/24 12:53:00 EDT, Weight Dosing triamcinolone, 60 mg = 1.5 mL, Injection, IntraMuscular, Once, Stop date 03/17/24 13:11:00 EDT, Routine, Start date 03/17/24 13:11:00 EDT, 03/17/24 13:11:00 EDT Influenza Type A&B POC 57482 Rapid COVID POC 68232 2. Cough (R05.9: Cough, unspecified) pt having deep painful cough Ordered: azithromycin, = 1 packet(s), Oral, As Directed, as directed on package labeling, X 5 day(s), # 6 tab(s), Refills(s) 0, [id number], 178, cm, 03/17/24 12:53:00 EDT, Height/Length Dosing, 106.8, kg, 03/17/24 12:53:00 EDT, Weight Dosing benzonatate, 200 mg = 1 cap(s), Oral, TID, X 7 day(s), # 21 cap(s), Refills(s) 0, Pharmacy: [facility]/pharmacy #[id number], 178, cm, 03/17/24 12:53:00 EDT, Height/Length Dosing, 106.8, kg, 03/17/24 12:53:00 EDT, Weight Dosing dextromethorphan/guai fenesin/pseudoephedri ne, 1 tab(s), Oral, q4hr, 30 tab(s), Refill(s) 0, not to exceed 4 doses/day, [facility]/pharmacy #[id number], 178, cm, 03/17/24 12:53:00 EDT, Height/Length Dosing, 106.8, kg, 03/17/24 12:53:00 EDT, Weight Dosing triamcinolone, 60 mg = 1.5 mL, Injection, IntraMuscular, Once, Stop date 03/17/24 13:11:00 EDT, Routine, Start date 03/17/24 13:11:00 EDT, 03/17/24 13:11:00 EDT Influenza Type A&B POC 06567 Rapid COVID POC 28949 3. BMI 33.0-33.9,adult (Z68.33: Body mass index [BMI] 33.0-33.9, adult) BMI education complete Ordered: azithromycin, = 1 packet(s), Oral, As Directed, as directed on package labeling, X 5 day(s), # 6 tab(s), Refills(s) 0, Pharmacy: [facility]/pharmacy #[id number], 178, cm, 03/17/24 12:53:00 EDT, Height/Length Dosing, 106.8, kg, 03/17/24 12:53:00 EDT, Weight Dosing benzonatate, 200 mg = 1 cap(s), Oral, TID, X 7 day(s), # 21 cap(s), Refills(s) 0, Pharmacy: [facility]/pharmacy #[id number], 178, cm, 03/17/24 12:53:00 EDT, Height/Length Dosing, 106.8, kg, 03/17/24 12:53:00 EDT, Weight Dosing dextromethorphan/guai fenesin/pseudoephedri ne, 1 tab(s), Oral, q4hr, 30 tab(s), Refill(s) 0, not to exceed 4 doses/day, [facility]/pharmacy #[id number], 178, cm, 03/17/24 12:53:00 EDT, Height/Length Dosing, 106.8, kg, 03/17/24 12:53:00 EDT, Weight Dosing triamcinolone, 60 mg = 1.5 mL, Injection, IntraMuscular, Once, Stop date 03/17/24 13:11:00 EDT, Routine, Start date 03/17/24 13:11:00 EDT, 03/17/24 13:11:00 EDT Influenza Type A&B POC 64352 Rapid COVID POC 17603 4. Non-smoker (Z78.9: Other specified health status) continue not smoking Ordered: azithromycin, = 1 packet(s), Oral, As Directed, as directed on package labeling, X 5 day(s), # 6 tab(s), Refills(s) 0, Pharmacy: [facility]/pharmacy #[id number], 178, cm, 03/17/24 12:53:00 EDT, Height/Length Dosing, 106.8, kg, 03/17/24 12:53:00 EDT, Weight Dosing benzonatate, 200 mg = 1 cap(s), Oral, TID, X 7 day(s), # 21 cap(s), Refills(s) 0, Pha (more content not included)... [facility] Comment on above: Result Comment: Elec tronically Signed By: Ara Michelle\.br\Date and Time Signed: 03/17/24 13:35 EDT Retail - Clinical Noteon Retail - Clinical Note [id number] .00TIFF [facility] Ambulatory Visit Summaryon 0 02-25-2024 Ambulatory Visit Summary MONIKA HASKINS :1970 Visit Date:02/25/2024 Ambulatory Visit Instructions Your [...] 10:20 AM EDT With: Ara Michelle Where: [address] \.br\ Medications\.br\ What How Much When Why [...] choosing us for your care.\.br\ \.br\ [facility] Family Medicine Office/Clini c Noteon 02-25-2024 Family [...] qWeek, # 4 EA, Refills(s) 2, Pharmacy: [facility], 178, cm, 02/25/24 11:11:00 EDT, Height/Length Dosing, 109.8, kg, 02/25/24 11:11:00 EDT, Weight Dosing tirzepatide, See Instructions, INJECT 1 PEN SUBCUTANEOUSLY ONCE A WEEK FOR 4 WEEKS, # 4 EA, Refills(s) 0, Pharmacy: [facility]/pharmacy #[id number], 177, cm, 12/15/23 10:24:00 EST, Height/Length [...] Recorded influe (more content not included)... Normal [facility] Comment on above: Result Comment: Elec tronically Signed By: Ara Michelle\.br\Date and Time Signed: 02/25/24 12:25 EDT [place]OLAOVon 02-18-2024 CNOV Office Visit (REHAV) MONIKA HASKINS ([id number]) 1970 F Date Time Provider Department 02/18/24 [...] skin should be examined by a health gericare aide to rule out infection. If you experience pain in the muscles injected over the next few days, you can take Tylenol to control the pain (unless contra-indicated). Please call our office at [phone] with any questions or concerns. MD Dianna [...] the inj (more content not included)... Normal [facility] Retail - Clinical Noteon Retail - Clinical Note [id number] .00TIFF Normal [facility] CNOVon 01-21-2024 CNOV Office Visit (REHAV) MONIKA HASKINS ([id number]) 1970 F Date Time Provider Department 01/21/24 9:15 AM PATRICK BUSTAMANTE During your visit today, we recorded the following information about you: Pulse Blood pressure 102/minute 116/66 Patrick Bustamante MD 01/21/2024 9:21 AM Signed Baclofen 10 mg tablets Take 1 tablet in the morning, afternoon and at bedtime. Contact the office with any questions or concerns ([employer] or [phone]). MD Dianna Sun Keith, MD 01/21/2024 12:23 [...] She is also swimming. Patient Entered Data vitaMedMD No flowsheet data found. Spasticity NRS 11/12/2023 [...] cognition, language or prosody on interview. Formal HUMAN RESOURCES BENEFITS ADMINISTRATOR testing was not performed today. Cranial Nerves: [...] (She uses (more content not included)... [facility] Screens [id number] .00TIFF Normal [facility] Ambulatory Visit Summaryon 0 01-14-2024 Ambulatory Visit [...] 10:20 AM EDT With: Ara Michelle Where: [facility] Invalid Interpretation Code [address] [place] [address]- \.br\ You Need to Complete the Following\.br\ BD Bone Density DEXA, 01/14/24, Routine, Order for Future Visit, Transport Mode: Ambulatory, Reason: Post menopausal, Ovarian failure [facility] Ambulatory Visit Summary MONIKA HASKINS :1970 Visit [...] 10:20 AM EDT With: Ara Michelle Where: [facility] Invalid Interpretation Code [address] [place] [address]- \.br\ You Need to Complete the Following\.br\ BD Bone Density DEXA, 01/14/24, Routine, Order for Future Visit, Transport Mode: Ambulatory, Reason: Post menopausal, Ovarian failure [facility] Family Medicine Office/Clini c Noteon 01-14-2024 Family Medicine Office/Clinic [...] of clutter to prevent tripping and/or falling. [place] Advance Directives reviewed, does not have, declines [...] visit scheduled: Will have labs completed with [facility]. Colonoscopy/ Cologuard, patient has Cologuard kit at [...] in life. Dexa Scan ordered, patient request [facility] to call to arrange. 4. Overactive bladder (N32.81: Overactive bladder) Patient receives Botox as needed, states effective. Patient follows with Dr. Blas. Patient states she is about due for another Botox injection and will be calling [facility] to arrange. 5. Obesity due to excess [...] and patient's (more content not included)... Normal [facility] Comment on above: Result Comment: Elec tronically Signed By: Ara Michelle\.br\Date and Time Signed: 01/14/24 13:36 EST\.br\Electronically Co-Signed By: Sergio Esteves\Date and Time Co-Signed: 01/14/24 10:44 EST Family Medicine Office/Clinic Note HPI Staff Patient presents for 1 month follow up Insulin resistance and Weight loss. Couldn't get the monjaro, or any of the weight loss meds, so she got the cpompounded [facility] which she will start tonight but Buderer told her that by time she takes [...] 4 weeks. Ordered: E&M of Est. Patient Gorge Fwd 10-19 Min 97123 2. BMI 34.0-34.9,adult (Z68.34: Body mass index [BMI] 34.0-34.9, adult) BMI education complete. pt is up 5 pounds. states she has been stress eating and has not been working out like she was. Ordered: Body Mass Index (BMI) documented 3008F Current tobacco non-user 1036F Depression Screening Negative 3352F E&M of Est. Patient Gorge Fwd 10-19 Min 43812 Influenza immunization status assessed 1030F Medicare Subsequent [...] Screening Negative 3352F E&M of Est. Patient Gorge Fwd 10-19 Min 99633 Influenza immunization status assessed 1030F Medicare Subsequent Visit G0439 Most recent diastolic blood pressure 80-89 mm Hg 3079F Systolic BP <130 mm Hg (Most Recent) 3074F 4. Nonsmoker (Z78.9: Other specified health status) continue not smoking Ordered: Body Mass Index (BMI) documented 3008F Current tobacco non-user 1036F Depression Screening Negative 3352F E&M of Est. Patient Gorge Fwd 10-19 Min 14055 Influenza immunization status assessed 1030F Most recent diastolic blood pressure 80-89 mm Hg 3079F Systolic BP <130 mm Hg (Most Recent) 3074F Orders: albuterol, 2 puff(s), Inhalation, q6hr, 8.5 gm, Refill(s) 0, [id number], 177, cm, 11/25/23 14:58:00 EST, Height/Length Dosing, 106, kg, 11/25/23 14:58:00 EST, Weight Dosing liraglutide, 0.6 mg, SubCutaneous, Daily, increase dose by 0.6mg every 4 weeks. week 2:1.2mg, week 3: 1.8mg, week 4:2.4mg, week 5 (max dose) 3mg weekly., # 15 mL, Refills(s) 1, Pharmacy: [facility], 177, cm, 12/15/23 10:24:00 EST, [...] Bronchitis Cervic (more content not included)... Normal [facility] Comment on above: Result Comment: Elec tronically Signed By: Ara Michelle\.br\Date and Time Signed: 01/14/24 11:41 EST Patient Educationon 01-14-20 24 Patient Education Caregiving Fall Prevention in the [...] night-lights. ? Place frequently used items in rklm-ff-booys places. Lower the shelves around your home [...] the way. ? Do not use floor sami or wax that makes floors slippery. If [...] include working with a physical therapist or personal trainer to improve your strength, balance, and endurance. Where to find more information ? Centers for Disease Control and Prevention, [place]: www.cdc.gov ? National [place] on Aging: www.taty.nih.gov Contact a health care [...] your health ca (more content not included)... Normal [facility] Physician Orderon 02-21-2024 Physician Order [id number] .00TIFF Normal [facility] Retail - Clinical Noteon Retail - Clinical Note [id number] .00TIFF Normal [facility] Pre-Certification Formon Pre-Certification Form [id number] .00TIFF Normal [facility] Ambulatory Visit Summaryon 0 12-15-2023 Ambulatory Visit Summary MONIKA HASKINS Wes :1970 Visit Date:12/15/2023 Ambulatory Visit Instructions Your [...] Appointments Friday 9:30 AM EST With: Where: [facility] Family Medicine [place] Normal [address] [place] [address]- \.br\ Medications\.br\ What How Much When Why [...] choosing us for your care.\.br\ \.br\ [facility] Family Medicine Office/Clini c Noteon 12-15-2023 Family Medicine Office/Clinic Note HPI Staff Monika [...] WEEKS, # 4 EA, Refills(s) 0, Pharmacy: [facility], 177, cm, 12/15/23 10:24:00 EST, [...] 07/2021 Re (more content not included)... Normal [facility] Comment on above: Result Comment: Elec tronically Signed By: Ara Michelle\.br\Date and Time Signed: 12/15/23 11:25 EST Ambulatory Visit Summaryon 0 11-25-2023 Ambulatory Visit Summary MONIKA HASKINS :1970 Visit Date:11/25/2023 Ambulatory Visit Instructions Your Care Team Attending Physician - Ara Michelle Primary Care Physician - Ara Michelel This Is Your Medications List baclofen cyanocobalamin [...] 9:40 AM EST With: Ara Michelle Where: [facility] Medicine [place] Normal [facility] Medicine Office/Clini c Noteon 11-25-2023 Family Medicine Office/Clinic Note HPI Staff Monika [...] E&M of Est. Patient Low 20-29 Min 22020 2. Congestion of nasal sinus (R09.81: Nasal congestion) see above Ordered: E&M of Est. Patient Low 20-29 Min 72258 3. BMI 33.0-33.9,adult (Z68.33: Body mass index [BMI] 33.0-33.9, adult) Ordered: E&M of Est. Patient Low 20-29 Min 05293 Orders: azithromycin, = 1 packet(s), Oral, As Directed, as directed on package labeling, X 5 day(s), # 6 tab(s), Refills(s) 0, Pharmacy: [facility]/pharmacy #[id number], 177, cm, 11/25/23 14:58:00 EST, Height/Length Dosing, 106, kg, 11/25/23 14:58:00 EST, Weight Dosing methylPREDNISolone, = 1 packet(s), Oral, As Directed, as directed on package labeling, X 6 day(s), # 21 tab(s), Refills(s) 0, Pharmacy: [facility]/pharmacy #[id number], 177, cm, 11/25/23 14:58:00 EST, Height/Length [...] Ad26 vaccine (more content not included)... Normal [facility] Comment on above: Result Comment: [...] 9:40 AM EST With: Ara Michelle Where: [facility] Family Medicine [facility] Ambulatory Visit Summary MONIKA HASKINS Wes :1970 Visit Date:11/12/2023 Ambulatory Visit Instructions Your [...] 9:40 AM EST With: Ara Michelle Where: [facility] Medicine [place] Normal [facility] Medicine Office/Clini c Noteon 11-12-2023 Family Medicine [...] would like to possibly go back to [facility] in November. will discuss at next visit. RTC 4 weeks 2. BMI 33.0-33.9,adult (Z68.33: Body mass index [BMI] 33.0-33.9, adult) BMI education complete 3. Non-smoker (Z78.9: Other specified health status) continue not smoking Ordered: phentermine, 37.5 mg = 1 tab(s), Oral, Daily, # 30 tab(s), Refills(s) 0, Pharmacy: [facility], 177, cm, 11/12/23 9:58:00 EST, Height/Length Dosing, 103.6, kg, 11/12/23 9:58:00 EST, Weight Dosing phentermine, 37.5 mg = 1 tab(s), Oral, Daily, # 30 tab(s), Refills(s) 0, Pharmacy: [facility], 177, cm, 09/09/23 11:33:00 EDT, Height/Length [...] Given measles/mumps (more content not included)... Normal [facility] Comment on above: Result Comment: Elec tronically Signed By: Ara Michelle\.br\Date and Time Signed: 11/12/23 12:55 EST Ambulatory Visit Summaryon 1 12-08-2022 Ambulatory Visit Summary MONIKA HASKINS :1970 Visit Date:10/08/2023 Ambulatory Visit Instructions Your [...] 10:20 AM EST With: Ara Michelle Where: [facility] Consent for Flu Vaccineon Consent for Flu Vaccine [id number]. 00TIFF [facility] Medicine Office/Clini c Noteon 10-08-2023 Family Medicine Office/Clinic Note HPI Staff Monika [...] Daily, # 30 tab(s), Refills(s) 0, Pharmacy: [facility], 177, cm, 09/09/23 11:33:00 EDT, Height/Length Dosing, 105.2, kg, 09/09/23 11:33:00 EDT, Weight Dosing phentermine, 37.5 mg = 1 tab(s), Oral, Daily, # 30 tab(s), Refills(s) 0, Pharmacy: [facility], 177, cm, 09/09/23 11:33:00 EDT, Height/Length Dosing, 105.2, kg, 09/09/23 11:33:00 EDT, Weight Dosing Encounter for immunization (Z23: Encounter for immunization) flu vaccine given Ordered: Admin flu virus vaccine G0008 Non-smoker (Z78.9: Other specified health status) continue not smoking Ordered: phentermine, 37.5 mg = 1 tab(s), Oral, Daily, # 30 tab(s), Refills(s) 0, Pharmacy: [facility], 177, cm, 09/09/23 11:33:00 EDT, Height/Length Dosing, 105.2, kg, 09/09/23 11:33:00 EDT, Weight Dosing phentermine, 37.5 mg = 1 tab(s), Oral, Daily, # 30 tab(s), Refills(s) 0, Pharmacy: [facility], 177, cm, 09/09/23 11:33:00 EDT, Height/Length Dosing, 105.2, kg, 09/09/23 11:33:00 EDT, Weight Dosing Orders: influenza virus [...] 09/16/2011 Tob (more content not included)... Normal [facility] Comment on above: Result Comment: Elec tronically Signed By: Ara Michelle\.br\Date and Time Signed: 10/08/23 11:36 EST Pre-Visit Planningon 023 Pre-Visit Planning - From: Elena CHARLES, Miriam To: Ara Michelle; Sent: 09/05/2023 14:30:15 EDT [...] everything was fine. ? CS - section ([id number]): Resolved. Biopsy of brain tissue tumor (839177227): Resolved. ? Brain tumor (239.6): Resolved.. Surgical history: Surgical history Gallbladder operation ([id number]). Based on your medical judgment, can you [...] feel free to contact me at extension [phone]. Thank you! GAIL Rubio, RN, CCM, CCDS, CCDS-O From: Ara Michelle To: Elena CHARLES, Miriam; Sent: 10/01/2023 16:59:29 EST Subject: RE: Pre-Visit Planning Caller Name: MONIKA HASKINS; Caller Number: Kendra , M History of brain tumor Normal [address] [facility] Ambulatory Visit Summaryon Ambulatory Visit Summary MONIKA HASKINS :1970 Visit [...] 11:00 AM EST With: Ara Michelle [place] [facility] [place]Clini c Noteon 09-09-2023 Family Medicine Office/Clinic [...] Daily, # 30 tab(s), Refills(s) 0, Pharmacy: [facility], 177, cm, 09/09/23 11:33:00 EDT, Height/Length Dosing, 105.2, kg, 09/09/23 11:33:00 EDT, Weight Dosing phentermine, 37.5 mg = 1 tab(s), Oral, Daily, # 30 tab(s), Refills(s) 0, Pharmacy: [facility], 177, cm, 08/12/23 11:53:00 EDT, Height/Length [...] to [place] (more content not included)... Normal [facility] Comment on above: Result Comment: [...] 17 mg/dL Normal 7 - 40 mg/dL [facility] CO2 [Moles/Vol] 24 mmol/L Normal 21 - 31 mmol/L [facility] Creatinine [Mass/Vol] 0.7 mg/dL Normal 0.5 - 1.3 mg/dL [facility] Remisol GFR/1.73 sq M.predicted among non-blacks MDRD (S/P/Bld) [Vol rate/Area] 105 mL/min/1.73 m2 Normal >=59mL/min/1.73 m2 [facility] S Globulin (S) [Mass/Vol] 3.7 g/dL Normal 1.4 - 4.0 gm/dL [facility] Remisol Glucose [Mass/Vol] 83 mg/dL Normal 55 - 199 mg/dL [facility] Potassium [Moles/Vol] 3.9 mmol/L Normal 3.5 - 5.3 mmol/L [facility] Remisol Protein [Mass/Vol] 8.2 g/dL High 6.0 - 7.8 gm/dL [facility] Remisol Sodium [Moles/Vol] 140 mmol/L Normal 135 - 145 mmol/L [facility] Triglyceride [Mass/Vol] 87 mg/dL Normal <=149mg/dL [facility] TSH Qn 1.33 m[IU]/L Normal 0.34 - 5.60 mcIU/mL [facility] C Remisol Urea nitrogen [Mass/Vol] 17 mg/dL Normal 5 - 21 mg/dL [facility] Remisol Urea nitrogen/Creatinine [Mass ratio] 24 mg/mg High 10 - 20 [facility] Remisol CHEMISTRYOrdered By: Maria M Jennings on 06-24-2023 HbA1c (Bld) [Mass fraction] 5.4 % Normal <=5.9% [facility] ChemAutoSS HEMATOLOGYOrdered By: SYSTEM SYSTEM on 06-24-2023 Basophils/100 WBC (Bld) 0.9 % Normal 0.0 - 2.0 % [facility] HemeAutoSS Basophils/Leukocyte s Auto (Bld) [Pure # [...] 4.9 E9/L Normal 2.0 - 7.5 E9/L [facility] HemeAutoSS HEMATOLOGYOrdered By: Francisco Mas on 06-24-2023 Erythrocyte distribution width (RBC) [Ratio] 13.3 % Normal 10.9 - 14.2 % [facility] Hematocrit (Bld) [Volume fraction] 45.4 % Normal 34.0 - 46.0 % [facility] Hemoglobin (Bld) [Mass/Vol] 15.0 g/dL Normal 12.0 - 16.0 gm/dL [facility] MCH (RBC) [Entitic mass] 28.7 pg Normal 27.0 - 34.0 pg [facility] HemeAutoSS MCHC (RBC) [Mass/Vol] 33.1 g/dL Normal 31.4 - 36.0 gm/dL [facility] HemeAutoSS MCV (RBC) [Entitic vol] 86.6 fL Normal 80.0 - 100.0 fL [facility] HemeAutoSS Platelet mean volume (Bld) [Entitic vol] 11.4 fL High 6.4 - 10.8 fL [facility] HemeAutoSS Platelets (Bld) [#/Vol] 276.0 E9/L Normal 150.0 - 500.0 E9/L [facility] HemeAutoSS RBC (Bld) [#/Vol] 5.2 E12/L Normal 4.3 - 5.9 E12/L [facility] HemeAutoSS WBC corrected for nucl RBC Auto (Bld) [#/Vol] 7.7 E9/L Normal 4.0 - 11.0 E9/L [facility] HemeAutoSS CBC W Auto Differential pane l (Bld)on 12-16-2022 Basophils (Bld) [#/Vol] 0.03 10*3/uL <0.11 k/uL [facility] Basophils/100 WBC (Bld) 0.4 % [facility] Differential cell count method Nom (Bld) Auto [facility] Eosinophils (Bld) [#/Vol] 0.10 10*3/uL <0.46 k/uL [facility] Eosinophils/100 WBC (Bld) 1.4 % [facility] Erythrocyte distribution width (RBC) [Ratio] 12.6 % 11.5 - 15.0 % [facility] Hematocrit (Bld) [Volume fraction] 45.0 % 36.0 - 46.0 % [facility] Hemoglobin (Bld) [Mass/Vol] 14.9 g/dL 11.5 - 15.5 g/dL [facility] Immature granulocytes (Bld) [#/Vol] <0.10 k/uL [facility] Immature granulocytes/100 WBC (Bld) 0.3 % [facility] Lymphocytes (Bld) [#/Vol] 2.01 10*3/uL 1.00 - 4.00 k/uL [facility] Lymphocytes/100 WBC (Bld) 27.8 % [facility] MCH (RBC) [Entitic mass] 28.3 pg 26.0 - 34.0 pg [facility] MCHC (RBC) [Mass/Vol] 33.1 g/dL 30.5 - 36.0 g/dL [facility] MCV (RBC) [Entitic vol] 85.4 fL 80.0 - 100.0 fL [facility] Monocytes (Bld) [#/Vol] 0.53 10*3/uL <0.87 k/uL [facility] Monocytes/100 WBC (Bld) 7.3 % [facility] Neutrophils (Bld) [#/Vol] 4.55 10*3/uL 1.45 - 7.50 k/uL [facility] Neutrophils/100 WBC (Bld) 62.8 % [facility] Nucleated RBC (Bld) [#/Vol] <0.01 k/uL [facility] Nucleated RBC/100 WBC (Bld) [Ratio] 0.0 /100 WBC [facility] Platelet mean volume (Bld) [Entitic vol] 12.7 fL 9.0 - 12.7 fL [facility] Platelets (Bld) [#/Vol] 241 10*3/uL 150 - 400 k/uL [facility] RBC (Bld) [#/Vol] 5.27 10*6/uL High 3.90 - 5.20 m/uL [facility] WBC (Bld) [#/Vol] 7.24 10*3/uL 3.70 - 11.00 k/u L [facility] MRI BRAIN WO/W IVCONon 12-16 [facility] XR HAND LT MIN 3Von 12-16-19 20 XR HAND LT MIN 3V Patient: MONIKA HASKINS Exam Date: 12/16/2019 : 1970 Gender:F Ordering : TEREZA LITTLEJOHN Admission #: [id number] Family : DR NICOLA JOHNSON D.O. Order #: [id number] CLICK HERE TO VIEW EXAM RADIOLOGY REPORT [...] Longo M.D. on 12/16/2019 at 12:10 Normal [facility] Vital Signs Date Time Vital Sign Value Performing Clinician Facility 12-22-2024 15:28-0500 Body mass index (BMI) [Ratio] 29.29 kg/m2 Kelley LITTLEJOHN Work Phone: [facility] 12-22-2024 15:28-0500 Body weight 100.7 kg Kelley LITTLEJOHN Work Phone: [facility] 12-22-2024 15:28-0500 Diastolic blood pressure 76 mm[Hg] Kelley LITTLEJOHN Work Phone: [facility] 12-22-2024 15:28-0500 Systolic blood pressure 128 mm[Hg] Kelley LITTLEJOHN Work Phone: [facility] 12-15-2024 13:08-0500 Diastolic blood pressure 79 mm[Hg] Patrick Bustamante MD Work Phone: [facility] 12-15-2024 13:08-0500 Heart rate 90 /min Patrick Bustamante MD Work Phone: [facility] 12-15-2024 13:08-0500 Systolic blood pressure 122 mm[Hg] Patrick Bustamante MD Work Phone: [facility] 2024 11:30-0400 Diastolic blood pressure 83 mm[Hg] Patrick Bustamante MD Work Phone: [facility] 2024 11:30-0400 Heart rate 103 /min Patrick Bustamante MD Work Phone: [facility] 2024 11:30-0400 Systolic blood pressure 130 mm[Hg] Patrick Bustamante MD Work Phone: [facility] 05-26-2024 12:57-0400 Diastolic blood pressure 80 mm[Hg] Patrick Bustamante MD Work Phone: [facility] 05-26-2024 12:57-0400 Heart rate 93 /min Patrick Bustamante MD Work Phone: [facility] 05-26-2024 12:57-0400 Systolic blood pressure 124 mm[Hg] Patrick Bustamante MD Work Phone: [facility] 04-16-2024 16:08-0400 Body height 180.3 cm Mio Rogers MD Work Phone: [facility] 04-16-2024 16:08-0400 Body mass index (BMI) [Ratio] 32.96 kg/m2 Mio Rogers MD Work Phone: [facility] 04-16-2024 16:08-0400 Body temperature 98.71 [degF] Mio Rogers MD Work Phone: [facility] 04-16-2024 16:08-0400 Body weight 107.2 kg Mio Rogers MD Work Phone: [facility] 04-16-2024 16:08-0400 Diastolic blood pressure 69 mm[Hg] Mio Rogers MD Work Phone: [facility] 04-16-2024 16:08-0400 Heart rate 106 /min Mio Rogers MD Work Phone: [facility] 04-16-2024 16:08-0400 Respiratory rate 20 /min Mio Rogers MD Work Phone: [facility] 04-16-2024 16:08-0400 SaO2% (BldA) [Mass fraction] 98 % Mio Rogers MD Work Phone: [facility] 04-16-2024 16:08-0400 Systolic blood pressure 126 mm[Hg] Mio Rogers MD Work Phone: [facility] 03-23-2024 14:35-0400 Blood Pressure Location Elo Orzech [facility] 03-23-2024 14:35-0400 Diastolic blood pressure 70 mm[Hg] Elo Orzech [facility] 03-23-2024 14:35-0400 Heart rate 60 /min Elo Orzech [facility] 03-23-2024 14:35-0400 Respiratory rate 16 /min Elo Orzech [facility] 03-23-2024 14:35-0400 Systolic blood pressure 130 mm[Hg] Elo Orzech [facility] 01-21-2024 09:09-0500 Diastolic blood pressure 66 mm[Hg] Patrick Bustamante MD Work Phone: [facility] 01-21-2024 09:09-0500 Heart rate 102 /min Patrick Bustamante MD Work Phone: [facility] 01-21-2024 09:09-0500 Systolic blood pressure 116 mm[Hg] Patrick Bustamante MD Work Phone: [facility] 09-03-2023 08:12-0400 Body height 180.3 cm Patrick Bustamante MD Work Phone: [facility] 09-03-2023 08:12-0400 Body weight 104.33 kg Patrick Bustamante MD Work Phone: [facility] 07-22-2023 13:08-0400 Blood Pressure Location LIANNA RIOS [facility] 07-22-2023 13:08-0400 Diastolic blood pressure 76 mm[Hg] LIANNA GABRIEL [facility] 07-22-2023 13:08-0400 Heart rate 70 /min LIANNA GABRIEL [facility] 07-22-2023 13:08-0400 Respiratory rate 16 /min LIANNA GABRIEL [facility] 07-22-2023 13:08-0400 Systolic blood pressure 128 mm[Hg] LIANNA GABRIEL [facility] 10-30-2022 13:42-0500 Blood Pressure Location Kelly Payan [facility] 10-30-2022 13:42-0500 Diastolic blood pressure 68 mm[Hg] Kelly Payan [facility] 10-30-2022 13:42-0500 Heart rate 89 /min Kelly Payan [facility] 10-30-2022 13:42-0500 Systolic blood pressure 115 mm[Hg] Kelly Payan [facility] 04-17-2022 14:38-0400 Heart rate 75 /min LIANNA GABRIEL [facility] 04-17-2022 14:38-0400 Respiratory rate 16 /min LIANNA GABRIEL [facility] 03-05-2022 11:28-0400 Blood Pressure Location LIANNA GABRIEL [facility] 03-05-2022 11:28-0400 Diastolic blood pressure 73 mm[Hg] LIANNA RIOS [facility] 03-05-2022 11:28-0400 Heart rate 96 /min LIANNA RIOS [facility] 03-05-2022 11:28-0400 Systolic blood pressure 122 mm[Hg] LIANNA RIOS [facility] Encounters Encounter Date Encounter Type Care Provider Facility Start: 02-08-2025 ambulatory Ara Vanegas Facility: [facility] Start: 12-28-2024 End: 12-28-2024 Clinisync Result Encounter Carter Surendra DO Work Phone: [facility] Unsolicited Start: 12-28-2024 End: 12-28-2024 Clinisync Result Encounter Carter Surendra DO Work Phone: [facility] Unsolicited Start: 12-23-2024 End: 12-23-2024 Clinisync Result Encounter Carter Surendra DO Work Phone: [facility] Unsolicited Start: 12-23-2024 End: 12-23-2024 Clinisync Result Encounter Acrter Surendra DO Work Phone: [facility] External [facility] Unsolicited [...] 12-22-2024 Bamboo flowsheet Kelley LITTLEJOHN Work Phone: [facility] Start: 12-15-2024 End: 12-15-2024 ambulatory ERICA TYESHARICA MERCEDES Facility:[facility] Start: 12-15-2024 End: 12-15-2024 Patient encounter procedure Patrick Bustamante MD Work Phone: Rehab Medicine Comment on above: 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) (Primary Dx); Brain tumor (HCC) Start: 11-09-2024 End: 11-09-2024 ambulatory Ara L Guilherme Facility:[facility] Start: 10-12-2024 End: 10-12-2024 ambulatory Ara L Guilherme Facility:[facility] [place] Start: 09-14-2024 End: 09-14-2024 ambulatory Ara L Guilherme Facility:[facility] [place] Start: 2024 End: 2024 ambulatory PATRICK BUSTAMANTE Facility:[facility] Start: 2024 End: 2024 Patient encounter procedure Patrick Bustamante MD Work Phone: Rehab Medicine Comment on above: 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) (Primary Dx) Start: 09-02-2024 End: 09-02-2024 ambulatory Ara L Guilherme Facility:[facility] [place] Start: 07-29-2024 End: 07-29-2024 Lab Drop off Ara L Guilherme [facility] Start: 07-29-2024 End: 07-29-2024 ambulatory Ara L Guilherme Facility:[facility] Start: 07-20-2024 ambulatory Ara L Guilherme Facility: [facility] [place] Start: 06-24-2024 End: 06-24-2024 ambulatory Ara L Guilherme Facility:[facility] [place] Start: 06-01-2024 End: 06-01-2024 ambulatory Elo X Orzech Facility: [place] Start: 06-01-2024 End: 06-01-2024 Patient encounter procedure Elo Case [facility] [place] Start: 05-26-2024 End: 05-26-2024 ambulatory PATRICK BUSTAMANTE Facility:[facility] Start: 05-26-2024 End: 05-26-2024 Patient encounter procedure Patrick Bustamante MD Work Phone: Rehab Medicine Comment on above: 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) (Primary Dx); Brain tumor (HCC) Start: 05-25-2024 End: 05-25-2024 ambulatory Ara L Guilherme Facility:[facility] Start: 05-19-2024 ambulatory Patrick Bustamante MD Work Phone: Rehab Medicine Start: 05-19-2024 Patient encounter procedure Sumit Bustamante MD Work Phone: Rehab Medicine Comment on above: botox Start: 05-07-2024 Telephone encounter Mio rubi MD Work Phone: Hematology/Oncology Comment on above: Stone Paver - O ther ([place] Franco Form ) Start: 05-06-2024 ambulatory Mio Rogers MD Work Phone: Hematology/Oncology Comment on above: [place] [employer] Start: 04-16-2024 End: 04-17-2024 [...] Start: 03-23-2024 End: 03-23-2024 ambulatory Elo X Manpreet Facility:[facility] [place] Start: 03-23-2024 End: 03-23-2024 Patient encounter procedure Elo Case [facility] [place] Start: 03-22-2024 End: 03-22-2024 Subsequent hospital visit by physician Ev Knutson (I-Stat/3t) Work Phone: Radiology Comment on above: Brain tumor (HCC) [D 49.6] Start: 03-17-2024 End: 03-17-2024 Refill Mitzy Brush RN Work Phone: Hematology/Oncology Comment on above: Refill Request Start: 02-25-2024 End: 02-25-2024 ambulatory Ara L Guilherme Facility:[facility] Start: 02-18-2024 End: 02-18-2024 ambulatory ERICA MERCEDES Facility:[facility] Start: 01-21-2024 End: 01-21-2024 [facility] Start: 01-21-2024 End: 01-21-2024 Patient encounter procedure Patrick Bustamante MD Work Phone: Rehab Medicine Comment on above: 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) (Primary Dx) Start: 01-14-2024 End: 01-14-2024 ambulatory [facility] Start: 12-15-2023 End: 12-15-2023 ambulatory Ara L Guilherme Facility:[facility] [place] Start: 11-25-2023 End: 11-25-2023 ambulatory Ara L Guilherme Facility:[facility] [place] Start: 11-12-2023 End: 11-12-2023 ambulatory Ara L Guilherme [facility] Start: 10-26-2023 ambulatory Mio Rogers MD Work Phone: Hematology/Oncology Comment on above: baclofen 10 mg Start: 10-24-2023 Refill Patrick Bustamante MD Work Phone: Rehab Medicine Comment on above: Refill Request Start: 10-08-2023 End: 10-08-2023 ambulatory Ara L Guilherme Facility:[facility] [place] Start: 09-09-2023 End: 09-09-2023 ambulatory Ara L Guilherme [facility] Start: 09-03-2023 End: 09-03-2023 Patient encounter procedure Patrick Bustamante MD Work Phone: Rehab Medicine Comment on above: 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) (Primary Dx); Brain tumor (HCC) Start: 08-22-2023 End: 08-22-2023 Patient encounter procedure Ara L Guilherme [facility] Start: 07-22-2023 End: 07-22-2023 Patient encounter procedure [facility] Start: 07-09-2023 End: 07-09-2023 Patient encounter procedure Patrick Bustamante MD Work Phone: Rehab Medicine Comment on above: APPOINTMENT CANCELLE D (Primary Dx) Start: 07-08-2023 End: 07-08-2023 Patient encounter procedure Oseas BLAS [facility] Start: 07-02-2023 End: 07-02-2023 Patient encounter procedure Ara L Guilherme [facility] Start: 06-24-2023 End: 06-24-2023 Lab Drop off Ara L Guilherme [facility] Start: 12-20-2022 End: 12-20-2022 ambulatory Mio Rogers MD Work Phone: Hematology/Oncology Comment on above: AL amyloidosis (HCC) (Primary Dx); Brain tumor (HCC) Start: 12-20-2022 End: 12-20-2022 Telemedicine consultation with patient Mio Rogers MD Work Phone: [facility] Start: 12-17-2022 ambulatory Mio Rogers MD Work Phone: Hematology/Oncology Start: 12-16-2022 End: 12-16-2022 Orders Only Zonia Josue RN Work Phone: Hematology/Oncology Comment on above: 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] Start: 12-12-2022 Refill Mio Rogers MD Work Phone: Hematology/Oncology Comment on above: Refill Request Start: 10-30-2022 End: 10-30-2022 Patient encounter procedure Kelly Payan [facility] Start: 10-01-2022 End: 10-01-2022 Patient encounter procedure Oseas BLAS [facility] Start: 09-23-2022 End: 09-23-2022 Subsequent hospital visit by physician Mri [facility] (1.5t) Work Phone: Radiology Comment on above: Canceled (Pt cx: Res cheduled) Start: 09-23-2022 End: 09-23-2022 Patient encounter procedure Oseas BLAS [facility] [place] Start: 09-11-2022 Refill Mio Rogers MD Work Phone: Hematology/Oncology Comment on above: Refill Request Start: 07-26-2022 Telephone encounter Mio rubi MD Work Phone: Hematology/Oncology Comment on above: Stone Paver - O ther (Question re: appts) Start: 06-03-2022 Telephone encounter Mio rubi MD Work Phone: Hematology/Oncology Comment on above: Care Coordination ([employer] Form) Start: 04-17-2022 End: 04-17-2022 Lab Drop off LIANNA RIOS [facility] Start: 04-17-2022 End: 04-17-2022 Patient encounter procedure LIANNA RIOS [facility] [place] Start: 03-05-2022 End: 03-05-2022 Patient encounter procedure LIANNA RIOS [facility] [place] Start: 02-27-2022 Telephone encounter Mio rubi MD Work Phone: Hematology/Oncology Comment on above: Stone Paver - O ther (handicap) Start: 02-12-2022 End: 02-12-2022 Patient encounter procedure Oseas Ward ROOPA [facility] Start: 10-16-2020 End: 10-16-2020 Subsequent hospital visit by physician Mri [facility] (Lg Bore/1.5t) Radiology MRI Comment on above: Canceled (Pt cx: d/t [place] Virus COVID-19 Process) Start: 12-16-2019 End: 12-16-2019 Patient encounter procedure [facility] Facility: Procedures Date Procedure Procedure Detail Performing Clinician Start: 12-28-2024 ECG 12-LEAD Carter Surendra DO Work Phone: Start: 12-23-2024 ALL [facility] Carter Surendra DO Work Phone: Start: 04-16-2024 Mri brain [...] brain stem w/o w/contrast material Mansi Gallagher APRN.PROCEDURE WRITER Work Phone: Start: 10-11-2022 Injection of therapeutic [...] Work Phone: brain biopsy Oseas BLAS 2010 Oseasshivani SULLIVAN Marsha section CS - section( Confirmed ) Oseas BLAS Cholecystectomy Cholecystectomy( Confirmed ) Oseas BLAS Operation on gallbladder Isa BLAS Plan of Treatment Date Care Activity Detail Author Start: 04-16-2027 Diabetes Screening Diabetes Screenin [facility] Start: 06-24-2026 Screening for malign ant neoplasm of cervix [facility] Start: 12-16-2025 DIABETES SCREEN DIABETES SCREEN [facility] Start: 12-16-2025 Diabetes Screening Diabetes Screenin [facility] Start: 04-16-2025 End: 07-16-2025 CBC W Auto Differential panel - Blood COMPLETE BLOOD COUNT AND DIFFERENTIAL Lab Routine AL amyloidosis (HCC) Expected: 04/16/2025 (Approximate), Expires: 07/16/2025 [facility] Comment on above: Expected: 04/16/2025 (Approximate), Expires: 07/16/2025 Start: 04-16-2025 End: 07-16-2025 Comprehensive metabolic 2000 panel - Serum or Plasma COMPREHENSIVE METABOLIC PANEL Lab Routine AL amyloidosis (HCC) Expected: 04/16/2025 (Approximate), Expires: 07/16/2025 [facility] Work Phone: Comment on above: Expected: 04/16/2025 (Approximate), Expires: 07/16/2025 Start: 04-16-2025 End: 07-16-2025 MONOCLONAL PROTEIN, SERUM (BLOOD) MONOCLONAL PROTEIN, SERUM (BLOOD) Lab Routine AL amyloidosis (HCC) Expected: 04/16/2025 (Approximate), Expires: 07/16/2025 [facility] Comment on above: Expected: 04/16/2025 (Approximate), Expires: 07/16/2025 Start: 04-16-2025 End: 05-16-2025 MR Brain WO and W contrast IV MRI BRAIN WO/W IVCON Radiology Routine Brain tumor (HCC) Expected: 04/16/2025 (Approximate), Expires: 05/16/2025 [facility] Comment on above: Expected: 04/16/2025 (Approximate), Expires: 05/16/2025 Start: 03-16-2025 End: 03-16-2025 Patient encounter procedure 03/16/2025 10:30 AM EDT Office Visit Rehab Medicine [address] [place] [address] Patrick Bustamante MD [address] [place] [address] 3 month botox Rehab Medicine Comment on above: 3 month botox Start: 01-13-2025 ambulatory Ambulatory Facility:[facility] Start: 12-22-2024 End: 12-22-2024 Patient encounter procedure 12/22/2024 3:30 PM EST Office Visit [facility] [address] [place] [address] Kelley Bolaños PA [address] [place] [address] Arrived [facility] Comment on above: Arrived Start: 12-22-2024 End: 12-22-2025 AFP tumor marker AFP tumor marker Lab Routine Complex ovarian cyst Expected: 12/22/2024 (Approximate), Expires: 12/22/2025 [facility] Comment on above: Expected: 12/22/2024 (Approximate), Expires: 12/22/2025 Start: 12-22-2024 End: 12-22-2025 CA 125 CA 125 Lab Routine Complex ovarian cyst Expected: 12/22/2024 (Approximate), Expires: 12/22/2025 [facility] Comment on above: Expected: 12/22/2024 (Approximate), Expires: 12/22/2025 Start: 12-22-2024 End: 12-22-2025 Carcinoembryonic Ag [Mass/volume] in Serum or Plasma CEA Lab Routine Complex ovarian cyst Expected: 12/22/2024 (Approximate), Expires: 12/22/2025 [facility] Comment on above: Expected: 12/22/2024 (Approximate), Expires: 12/22/2025 Start: 12-22-2024 End: 12-22-2025 HCG, tumor marker HCG, tumor marker Lab Routine Complex ovarian cyst Expected: 12/22/2024 (Approximate), Expires: 12/22/2025 [facility] Comment on above: Expected: 12/22/2024 (Approximate), Expires: 12/22/2025 Start: 12-22-2024 End: 12-22-2025 Lactate dehydrogenase, isoenzymes Lactate dehydrogenase, isoenzymes Lab Routine Complex ovarian cyst Expected: 12/22/2024 (Approximate), Expires: 12/22/2025 [facility] Work Phone: Comment on above: Expected: 12/22/2024 (Approximate), Expires: 12/22/2025 Start: 12-15-2024 End: 01-22-2025 Patient encounter procedure 12/15/2024 1:00 PM EST Office Visit Rehab Medicine [address] [place] [address] Patrick Bustamante MD [address] [place] [address] [facility]OTOX Rehab Medicine Comment on above: BOTOX Start: 09-17-2024 DIABETES SCREEN DIABETES SCREEN [facility] Start: 2024 End: 2024 Patient encounter procedure 2024 11:15 AM EDT Office Visit Rehab Medicine [address] [place] [address] Patrick Bustamante MD [address] [place] [address] [facility] Rehab Medicine Comment on above: BOTOX Start: 07-25-2024 Covid-19 Vaccine () Covid-19 Vaccine () [facility] Start: 07-25-2024 Influenza vaccination Influenza Vacc ine (#1) [facility] Start: 05-26-2024 End: 05-26-2024 Patient encounter procedure 05/26/2024 1:00 PM EDT Office Visit Rehab Medicine [address] [place] [address] Patrick Bustamante MD [address] [place] [address] [facility]OTOX Rehab Medicine Comment on above: BOTOX Start: 04-16-2024 End: 04-16-2024 Follow-up encounter 04/16/2024 4:00 PM EDT Visit (SP) Office Hematology/Oncology [address] [place] [address] Mio Rogers MD [address] [place] [address] FOLLOW UP Hematology/Oncology Comment on above: FOLLOW UP Start: 04-16-2024 End: 04-16-2024 ambulatory 04/16/2024 3:00 PM EDT Infusion Center Hematology/Oncology [address] [place] [address] labs Hematology/Oncology Comment on above: labs Start: 04-16-2024 Subsequent hospital visit by physician 04/16/2024 2:00 PM EDT Hospital Encounter Radiology [address] [place] [address] Brain tumor (HCC) [D49.6] Radiology Comment on above: Brain tumor (HCC) [D 49.6] Start: 03-22-2024 End: 03-22-2024 Follow-up encounter 03/22/2024 12:00 PM EDT Visit (SP) Office Hematology/Oncology [id number] [place] [address] Mio Rogers MD [address] [place] [address] FOLLOW UP Hematology/Oncology Comment on above: FOLLOW UP Start: 03-22-2024 Subsequent hospital visit by physician 03/22/2024 10:40 AM EDT Hospital Encounter Radiology [address] [place] [id number] Brain tumor (HCC) [D49.6] Radiology Comment on above: Brain tumor (HCC) [D 49.6] Start: 03-22-2024 End: 03-22-2024 ambulatory 03/22/2024 10:00 AM EDT Results Only [facility] [place] [address] [address] [place] [address] LABS [facility] [place] [facility] [address] Comment on above: LABS Start: 02-05-2024 End: 01-15-2025 MR Brain WO and W contrast IV MRI BRAIN WO/W IVCON Radiology Routine Brain tumor (HCC) AL amyloidosis (HCC) Expected: 02/05/2024, Expires: 01/15/2025 [facility] Work Phone: Comment on above: Expected: 02/05/2024 , Expires: 01/15/2025 Start: 12-20-2023 End: 02-19-2024 CBC W Auto Differential panel - Blood CBC + DIFF Lab Routine AL amyloidosis (HCC) Expected: 12/20/2023 (Approximate), Expires: 02/19/2024 [facility] Work Phone: Comment on above: Expected: 12/20/2023 (Approximate), Expires: 02/19/2024 Start: 12-20-2023 End: 02-19-2024 Comprehensive metabolic 2000 panel - Serum or Plasma COMP METABOLIC PANEL Lab Routine AL amyloidosis (HCC) Expected: 12/20/2023 (Approximate), Expires: 02/19/2024 [facility] Work Phone: Comment on above: Expected: 12/20/2023 (Approximate), Expires: 02/19/2024 Start: 12-20-2023 End: 02-19-2024 MONOCLONAL PROTEIN, SERUM (BLOOD) MONOCLONAL PROTEIN, SERUM (BLOOD) Lab Routine AL amyloidosis (HCC) Expected: 12/20/2023 (Approximate), Expires: 02/19/2024 [facility] Work Phone: Comment on above: Expected: 12/20/2023 (Approximate), Expires: 02/19/2024 Start: 12-20-2023 End: 01-19-2024 Mri brain brain stem w/o w/contrast material MRI BRAIN WO/W IVCON Radiology Routine Brain tumor (HCC) AL amyloidosis (HCC) Expected: 12/20/2023 (Approximate), Expires: 01/19/2024 [facility] Work Phone: Comment on above: Expected: 12/20/2023 (Approximate), Expires: 01/19/2024 Start: 11-24-2023 Behavioral Health Screening Behavioral Health Screening [facility] Start: 11-24-2023 Depression Assessment Depression Ass essment [facility] Start: 07-25-2023 Covid-19 Vaccine () Covid-19 Vaccine () [facility] Start: 07-25-2023 Influenza vaccination [facility] Start: 12-16-2022 End: 02-15-2023 Comprehensive metabolic 2000 panel - Serum or Plasma [facility] Work Phone: Comment on above: Expected: 12/16/2022 , Expires: 02/15/2023 Start: 12-16-2022 End: 02-15-2023 MONOCLONAL PROTEIN, SERUM (BLOOD) [facility] Work Phone: Comment on above: Expected: 12/16/2022 , Expires: 02/15/2023 Start: 11-24-2022 DEPRESSION ASSESSMENT DEPRESSION ASS ESSMENT [facility] Start: 2022 Pneumococcal Vaccine : 50+ (1 of 1 - PCV) Pneumococcal Vaccine: 50+ (1 of 1 - PCV) [facility] Start: 2022 SHINGRIX VACCINE (1 of 2) RODRIGUEZ GRIX VACCINE (1 of 2) [facility] Start: 07-25-2022 Influenza vaccination INFLUENZA (#1) [facility] Start: 01-13-2022 COVID-19 VACCINE (3 - Booster for Pfizer series) COVID-19 VACCINE (3 - Booster for Pfizer series) [facility] Start: 11-24-2021 DEPRESSION ASSESSMENT DEPRESSION ASS ESSMENT [facility] Start: 10-08-2021 COVID-19 VACCINE (3 - Booster for Pfizer series) COVID-19 VACCINE (3 - Booster for Pfizer series) [facility] Start: 10-08-2021 COVID-19 VACCINE (3 - Pfizer series) COVID-19 VACCINE (3 - Pfizer series) [facility] Start: 09-16-2021 Urine microalbumin profile DTa P,Tdap,Td Vaccine (2 - Td or Tdap) [facility] Start: 2017 COLOGUARD (FIT-DNA) COLOGUARD (FIT-D NA) [facility] Start: 2017 Colonoscopy COLONOSCOPY [facility] Start: 2017 COLORECTAL CANCER SCREENING COLORECTAL CANCER SCREENING [facility] Start: [address] COLONOGRAPHY [facility] Start: 2017 FECAL OCCULT BLOOD FECAL OCCULT BLOO D [facility] Start: 2017 Lipid 1996 panel - S tameka or Plasma Lipid Screening [facility] Start: 2017 Lipid panel Lipid Screening [facility] Start: 2017 LIPID SCREEN LIPID SCREEN [facility] Start: 2017 Screening for malign ant neoplasm of colon [facility] Start: 2017 SIGMOIDOSCOPY SIGMOIDOSCOPY [facility] Start: 02-18-2016 Adult depression scr eening assessment DEPRESSION SCREENING [facility] Start: 2012 Mammography [facility] Start: 2012 Screening for malign ant neoplasm of breast [facility] Start: 2002 HPV TESTING HPV TESTING [facility] Start: 2002 Screening for malign ant neoplasm of cervix [facility] Start: 1993 PAP TESTING PAP TESTING [facility] Start: 1993 Screening for malign ant neoplasm of cervix [facility] Start: 1991 Hepatitis B Vaccine (1 of 3 - 19+ 3-dose series) Hepatitis B Vaccine (1 of 3 - 19+ 3-dose series) [facility] Start: 1991 Urine microalbumin profile [facility] Start: 1990 Anxiety Screening Anxiety Screening [facility] Start: 1990 Depression Screening Depression Scre ening [facility] Start: 1990 HEPATITIS C SCREENING HEPATITIS C [facility] Start: 1990 Hepatitis C screening Hepatitis C [facility] Start: 1990 HIV [facility]ING [facility] [facility] HIV screening HIV Screening [facility] Start: 1972 HEPATITIS B (1 of 3 - 3-dose series) HEPATITIS B (1 of 3 - 3-dose series) [facility] Start: 1972 Hepatitis B Vaccine (1 of 3 - 3-dose series) Hepatitis B Vaccine (1 of 3 - 3-dose series) [facility] Start: 1972 Screening for malign ant neoplasm of colon [facility] Immunizations Immunization Date Immunization Notes Care Provider Lenore waite 10-08-2023 influenza, injectabl e, quadrivalent, preservative free Elo Case [facility] [place] 10-08-2023 influenza virus vaccine, unspecified formulation Patrick Bustamante MD Work Phone: [facility] 09-17-2021 influenza virus vaccine, unspecified formulation LIANNA GABRIEL [facility] 09-17-2021 influenza, injectabl e, quadrivalent, preservative free Mio Rogers MD Work Phone: [facility] 09-05-2021 influenza virus vaccine, unspecified formulation LIANNA GABRIEL [facility] 08-24-2021 SARS-CoV-2 (COVID-19 ) Ad26 vaccine, recombinant Oseas [facility] 08-13-2021 SARS-CoV-2 (COVID-19 ) mRNA BNT-162g8 vax LIANNA RIOS [facility] Comment on above: Result Comment: 2022: TPV40 07-25-2021 SARS-CoV-2 (COVID-19 ) Ad26 vaccine, recombinant Oseas BLAS [facility] 07-23-2021 SARS-CoV-2 (COVID-19 ) mRNA BNT-162b2 vax LIANNA RIOS [facility] Comment on above: Result Comment: 2022: [id number] 09-21-2019 influenza virus vaccine, unspecified formulation LIANNA GABRIEL [facility] 09-21-2019 influenza, injectabl e, quadrivalent, preservative free Mio Rogers MD Work Phone: [facility] 09-19-2014 influenza virus vaccine, unspecified formulation LIANNA GABRIEL [facility] 09-19-2014 influenza, injectabl e, quadrivalent, preservative free Mio Rogers MD Work Phone: [facility] 09-24-2013 influenza virus vaccine, unspecified formulation Mio Rogers MD Work Phone: [facility] 11-26-2012 influenza virus vaccine, unspecified formulation Mio Rogers MD Work Phone: [facility] 09-16-2011 tetanus toxoid, reduced diphtheria toxoid, and acellular pertussis vaccine, adsorbed Oseas BLAS [facility] NEGATED: Highlighted row has not occurred!11-06-2020 influenza virus vaccine, unspecified formulation Oseas BLAS [facility] Payers Date Payer Category Payer Medicare (Managed Care) HU[employer] M EDICARE ADVANTAGE [id number] 2023 Private Health Insurance [id number] 2022 Medicare [id number] 2020 Unknown ANTHEM BLUE CROS S AND BLUE SHIELD ANTHEM MEDIBLUE O [id number] 2020-Present [phone] [address] [place] [id number] O [id number] [id number] 2020 Unknown ANTHEM BLUE CROS S AND BLUE SHIELD ANTHEM MEDIBLUE O [id number] 2020-Present [phone] [address] [place] [address] O [id number]. [id number] 2018 Medicare [id number] 1.13.159. 2.7.3.081012.315 1972 Unknown [id number] 2.16.840.1.014785.3.579. 2.593 1972 Unknown [id number] 2.16.840.1.004376.3.579. 2.727 1972 Unknown [id number] 2.16.840.1.754843.3.579. 2.727 1972 Unknown [id number] 2.16.840.1.949643.3.579. 2.727 1972 Unknown [id number] 2.16.840.1.055109.3.579. 2.727 1972 Unknown [id number] 2.16.840.1.376247.3.579. 2.727 1972 Unknown [id number] 2.16.840.1.252890.3.579. 2.727 1972 Unknown [id number] 2.16.840.1.616807.3.579. 2.727 1972 Unknown [id number] 2.16.840.1.677171.3.579. 2.727 1972 Unknown [id number] 2.16.840.1.270435.3.579. 2.727 1972 Unknown [id number] 2.16.840.1.624151.3.579. 2.727 1972 Unknown [id number] 2.16.840.1.878886.3.579. 2.727 1972 Unknown [id number] 2.16.840.1.442757.3.579. 2.727 1972 Unknown [id number] 2.16.840.1.325473.3.579. 2.727 1972 Unknown [id number] 2.16.840.1.062601.3.579. 2.727 1972 Unknown [id number] 2.16.840.1.339062.3.579. 2.727 1972 Unknown [id number] 2.16.840.1.541292.3.579. 2.727 1972 Unknown [id number] 2.16.840.1.589445.3.579. 2.727 1972 Unknown [id number] 2.16.840.1.035866.3.579. 2.727 1972 Unknown [id number] 2.16.840.1.854481.3.579. 2.727 1972 Unknown [id number] 2.16.840.1.136640.3.579. 2.727 1972 Unknown [id number] 2.16.840.1.846136.3.579. 2.727 1972 Unknown [id number] 2.16.840.1.873143.3.579. 2.727 1972 Unknown [id number] 2.16.840.1.692837.3.579. 2.727 1972 Unknown [id number] 2.16.840.1.131761.3.579. 2.1259 1959 Medicare [id number] Social History Date Type Detail Facility Start: 09-13-2020 End: 07-21-2023 Tobacco smoking status Never smoked tobacco (finding) [facility] Comment on above: bhupinders Tobacco smoking status Never [facility] Comment on above: deneis Start: 07-11-2022 End: 03-03-2024 Sex Assigned At Female [facility] Start: 09-17-2021 End: 12-15-2024 Alcohol intake Current drinker of alcohol (finding) [facility] Start: 1972 Sex Assigned At Not on file [facility] Start: 12-14-2012 Tobacco use and exposure Smokeless tobacco non-user [facility] Start: 07-11-2022 End: 03-03-2024 History of Social function [facility] Start: 09-02-2020 End: 10-02-2020 Exposure to SARS-CoV-2 (event) Not sure [facility] Start: 12-22-2024 Alcoholic beverage intake Lifetime non-drinker (finding) [facility] Functional Status Date Assessment Result Facility 06-01-2024 Functional Status N/A [facility] 03-23-2024 Functional Status N/A [facility] 07-22-2023 Functional Status N/A [facility] 06-23-2023 Functional Status N/A [facility] 10-30-2022 Functional Status N/A [facility] 09-19-2022 Functional Status N/A [facility] Clinical Notes 02-12-2022 to 12-22-2024 ERON Curtis - 12/22/2024 3:30 PM Patrick Knott MD - 12/15/2024 1:02 PM ESTPatient InstructionsPatrick Bustamante MD - 2024 11:24 AM EDTPatient InstructionsPatient [...] Date BRAIN BIOPSY 2011 SECTION, LOW TRANSVERSE [address] GUIDED IMAGING FOR STEREOTACTIC LOCALIZATION 11/25/2012 [...] note reviewed. Exam conducted with a child development assistant present. Vitals: Estimated body mass index is [...] Carter Agosto DO documented in this encounter [facility] 12-15-2024 Note HNO ID: [id number] Author: PATRICK BUSTAMANTE MD Service: ? Author [...] Clinician(s) performing the injections: Patrick Bustamante MD Fountain Pen Turner: Leidy Rico LPN and Danielle Snyder RN [...] 100 units / 2 ml LOT #: [id number] Expiration Date: Month: 4 Year: 27 The injections were (more content not included)... [facility] 12-15-2024 History of Present illness Narrative [...] Knee flexors 0 0 Plantarflexors 0 Modified Francien Scale 0 - No increase in tone [...] Out: SIGN OUT (optional for EMERGENT procedures): NA Patrick Bustamante, MD The risks, benefits and alternatives of the procedure were explained. Written Consent Obtained: yes - 11/12/2023 Clinician(s) performing the injections: Patrick Bustamante MD Fountain Pen Turner: Leidy Rico LPN and Danielle Snyder RN [...] 100 units / 2 ml LOT #: [id number] Expiration Date: Month: 4 Year: 27 The [...] Patrick Bustamante MD documented in this encounter [facility] 12-14-2024 Instructions Patrick Bustamante MD - 12/14/2024 12:10 PM EST You have received botulinum toxin injections today. The skin around the site of injections should be monitored for a couple of days. If redness or swelling occur, the skin should be examined by a health gericare aide to rule out infection. If you experience pain in the muscles injected over the next few days, you can take Tylenol to control the pain (unless contra-indicated). Please call our office at [phone] with any questions or concerns. Patrick Bustamante MD documented in this encounter [facility] 2024 Note HNO ID: [id number] Author: PATRICK BUSTAMANTE MD Service: ? Author [...] Clinician(s) performing the injections: Patrick Bustamante MD Fountain Pen Turner: Leidy Rico LPN and Danielle Snyder RN [...] 100 units / 2 ml LOT #: [id number] Expiration Date: Month: 12 Year: 26 The injections were well tolerated. Minimal bleeding occurred at the injection sites. Assessment: (G81.14) Spastic (more content not included)... [facility] 2024 History of Present illness Narrative [...] Clinician(s) performing the injections: Patrick Bustamante MD Fountain Pen Turner: Leidy Rico LPN and Danielle Snyder RN [...] 100 units / 2 ml LOT #: [id number] Expiration Date: Month: 12 Year: 26 The [...] continue to perform stretching exercises daily. MS BT PRE AUTH Plan: 1 - Repeat injections in 3 months, 400 units. Transfers independently. 2 - Continue to perform stretching exercises daily. 3 - Note copied to Mio Rogers MD via Isoflux. Time spent with patient: 40 mn. Patrick Bustamante MD documented in this encounter [facility] 09-07-2024 Instructions Patrick Bustamante MD - 09/07/2024 10:17 AM EDT You have received botulinum toxin injections today. The skin around the site of injections should be monitored for a couple of days. If redness or swelling occur, the skin should be examined by a health gericare aide to rule out infection. If you experience pain in the muscles injected over the next few days, you can take Tylenol to control the pain (unless contra-indicated). Please call our office at [phone] with any questions or concerns. Patrick Bustamante MD documented in this encounter [facility] 06-01-2024 Hospital Discharge instructions Patient Education 06/01/2024 [...] (electrical nerve stimulation). ?For women, using a emergency medical service manager to prevent urine leaks. This is a [...] right after experiencing incontinence. General instructions Take mktx-bay-htmyjlg and prescription medicines only as told by [...] important. Where to find more information National [place] of Diabetes and Digestive and Kidney Diseases: www.niddk.nih.gov [employer] [employer]: www.urologyhealth.org Contact a health care [...] provider. Document Revised: 06/15/2021 Document Reviewed: 06/15/2021 [employer] Patient Education 2022 [employer]. 06/01/2024 15:02:52 Overactive Bladder, Adult Overactive Bladder, [...] your health care provider. General instructions Take eafm-gio-lewzhjh and prescription medicines only as told by [...] provider. Document Revised: 07/30/2021 Document Reviewed: 07/30/2021 [employer] Patient Education 2022 [employer]. Follow Up Care 03/23/2024 15:00:41 With:DIANA Case APRN, AURELIO Del Castillo, URL Address: When: Unknown Comments:1 year [facility] 06-01-2024 Note Patient Education Obstetrics and [...] health care provider. General instructions ? Take xbgl-uju-gjdwkyc and prescription medicines only as told by [...] your health care (more content not included)... [facility] 05-26-2024 Note HNO ID: [id number] Author: PATRICK BUSTAMANTE MD Service: ? Author [...] Clinician(s) performing the injections: Patrick Bustamante MD Fountain Pen Turner: Leidy Rico LPN and Danielle Snyder RN [...] 100 units / 2 ml LOT #: [id number] Expiration Date: Month: 8 Year: 26 The injections were well tolerated. Minimal bleeding occurred at the (more content not included)... [facility] 05-26-2024 History of Present illness Narrative [...] Clinician(s) performing the injections: Patrick Bustamante MD Fountain Pen Turner: Leidy Rico LPN and Dainelle Snyder RN The patient was positioned lying [...] 100 units / 2 ml LOT #: [id number] Expiration Date: Month: 8 Year: 26 The [...] Note copied to Mio Rogers MD via Isoflux. Time spent with patient: 45 mn. Patrick Bustamante MD documented in this encounter [facility] 05-25-2024 Instructions Patrick Bustamante MD - 05/25/2024 5:14 PM EDT You have received botulinum toxin injections today. The skin around the site of injections should be monitored for a couple of days. If redness or swelling occur, the skin should be examined by a health gericare aide to rule out infection. If you experience pain in the muscles injected over the next few days, you can take Tylenol to control the pain (unless contra-indicated). Please call our office at [phone] with any questions or concerns. Patrick Bustamante MD documented in this encounter [facility] 05-19-2024 Telephone encounter Note [employer] approved till 11/16; no units [place] [facility] Work Phone: 05-19-2024 Miscellaneous Notes [employer] approved till 11/16; no units [place] documented in this encounter [facility] 05-07-2024 Telephone encounter Note Monika Haskins is calling Mio Rogers MD today regarding [place] - Other ([place] Franco Form ) Patient has been identified by name and birthdate. Patient called to enquire if we have received the [place] Franco Form faxed to us minutes ago, I checked and informed her yes. She requested it to be filled and faxed back over today. The fax was forwarded over to the [facility] nurses. Patient can be reached at: [phone] (home) Blanca Lee May 07, 2024 [facility] 05-07-2024 Miscellaneous Notes Monika Haskins is calling Mio Rogers MD today regarding [employer] - Other ([place] Franco Form ) Patient has been identified by name and birthdate. Patient called to enquire if we have received the [place] Form faxed to us minutes ago, I checked and informed her yes. She requested it to be filled and faxed back over today. The fax was forwarded over to the [facility] nurses. Patient can be reached at: [phone] (home) Blanca Lee May 07, 2024 documented in this encounter [facility] 04-16-2024 Nurse Note Additional intake questions: Has the patient had fever, nausea, vomiting, diarrhea, constipation, fatigue for > 1 week? No Does the patient have a decreased appetite? No Does patient want to see a Twisting Machine Operator? No (yes to any of above refer patient to schedulers for dietitian appointment) ) Does patient have any new or increased numbness or tingling of extremities? No Is patient interested in fertility information? No Does patient need any prescription refills? No Does patient have an advanced directive in place? no [facility] 04-16-2024 Nurse Note Additional intake questions: Has the patient had fever, nausea, vomiting, diarrhea, constipation, fatigue for > 1 week? No Does the patient have a decreased appetite? No Does patient want to see a Twisting Machine Operator? No (yes to any of above refer patient to schedulers for dietitian appointment) ) Does patient have any new or increased numbness or tingling of extremities? No Is patient interested in fertility information? No Does patient need any prescription refills? No Does patient have an advanced directive in place? no documented in this encounter [facility] 04-16-2024 History of Present illness Narrative Images from the original note were not included. (Elements copied from prior note dated 09/17/2021, have been reviewed and updated where appropriate, and all reflect current assessment and medical decision-making during today's encounter, 04/16/2024) [facility] Monika Haskins is a 53 year old female patient. 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 Overall she is doing well. Left sided [...] No history of dysuria, frequency or incontinence FIELD ENGINEER: Negative for abnormal vaginal bleeding, abnormal [...] 0.00 08/16/2013 0.00 02/22/2013 0.00 01/25/2013 0.00 Drumright Free, Serum (mg/L) Date Value 12/16/2022 27.6 [...] to 11/05/2018. ASSESSMENT: 1. AL amyloidoma of COOLER WORKER. PLAN: 1. MRI is stable. Clinically doing [...] Mio Lynch MD, MPH PGY-IV Hematology/Oncology Fellow [facility] STAFF PHYSICIAN NOTE OF PERSONAL INVOLVEMENT IN CARE I have reviewed the progress note obtained and documented by the fellow and I personally participated in the fung components. I have discussed the case and management of the patient's care. The following comments revise or confirm relevant fung components of their note. IMPRESSION: This is a 53 year old female who presents with COOLER WORKER amyloidoma. PLAN: continue observation with imaging and labs at regular intervals. MRI today stable. Ongoing rehabiliation medicine evaluations as well. Mio Rogers MD documented in this encounter [facility] 04-16-2024 Note HNO ID: [id number] Author: MIO ROGERS MD Service: ? Author Type: Physician Type: Progress Notes Filed: 04/20/2024 10:14 Note Text: (Elements copied from prior note dated 09/17/2021, have been reviewed and updated where appropriate, and all reflect current assessment and medical decision-making during today's encounter, 04/16/2024) [facility] Monika Haskins is a 53 year old female patient. 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 Overall she is doing well. Left sided [...] No history of dysuria, frequency or incontinence FIELD ENGINEER: Negative for abnormal vaginal bleeding, abnormal [...] BMI 32.96 kg/m? (more content not included)... [facility] 04-16-2024 Note HNO ID: [id number] Author: CAMILLA BRITT RN Service: Nursing Author [...] DATE: April 16, 2024 TIME: 1:52 PM [facility] 04-16-2024 History of Present illness Narrative [...] PATIENT PRESENTS WITH AN IMPLANTABLE OR ATTACHED JIRA ADMINISTRATOR: No RADIOLOGY DEPARTMENT: MR; Exam(s) Completed: Head: Routine Brain PERIPHERAL IV DATA: Site assessment: Clean,Dry and Intact, Site disposition Left in for next appointment SIGNED BY: RT Ellie(Ed) April 16, 2024 2:35 PM documented in this encounter [facility] 04-16-2024 Note HNO ID: [id number] Author: SEDA ARCEO RT(R) Service: Radiology Author Type: Technologist Type: Progress [...] PATIENT PRESENTS WITH AN IMPLANTABLE OR ATTACHED JIRA ADMINISTRATOR: No RADIOLOGY DEPARTMENT: MR; Exam(s) Completed: Head: Routine Brain PERIPHERAL IV DATA: Site assessment: Clean,Dry and Intact, Site disposition Left in for next appointment SIGNED BY: RT Ellie(Ed) April 16, 2024 2:35 PM [facility] 03-23-2024 Hospital Discharge instructions Patient Education [...] (electrical nerve stimulation). ?For women, using a emergency medical service manager to prevent urine leaks. This is a [...] right after experiencing incontinence. General instructions Take zkbb-zkx-mcuhyev and prescription medicines only as told by [...] important. Where to find more information National [place] of Diabetes and Digestive and Kidney Diseases: www.niddk.nih.gov [employer] [employer]: www.urologyhealth.org Contact a health care [...] provider. Document Revised: 06/15/2021 Document Reviewed: 06/15/2021 [employer] Patient Education 2022 [employer]. 03/23/2024 15:13:47 Overactive Bladder, Adult Overactive Bladder, [...] your health care provider. General instructions Take wvtm-rcb-hpnovee and prescription medicines only as told by [...] provider. Document Revised: 07/30/2021 Document Reviewed: 07/30/2021 [employer] Patient Education 2022 [employer] 03/23/2024 15:13:46 Kegel Exercises Kegel Exercises Kegel [...] provider. Document Revised: 03/21/2022 Document Reviewed: 03/21/2022 [employer] Patient Education 2022 [employer]. Follow Up Care 03/05/2024 10:45:48 With:DIANA Case APRN, Elo Michel, AURELIO, URL Address: When: Unknown Comments:8 wks w/ P[facility] Note HNO ID: [id number] Author: PATRICK BUSTAMANTE MD Service: ? Author [...] Clinician(s) performing the injections: Patrick Bustamante MD Fountain Pen Turner: Leidy Rico LPN, Danielle Snyder RN and [...] 100 units / 2 ml LOT #: [id number] Expiration Date: Month: 5 Year: 26 The injections were well tolerated. Minimal bleeding occurred at the injection sites. 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 [facility] 01-21-2024 Note HNO ID: [id number] Author: PATRICK BUSTAMANTE MD Service: ? Author [...] She is also swimming. Patient Entered Data CovacsisIS No flowsheet data found. Spasticity NRS 11/12/2023 [...] cognition, language or prosody on interview. Formal HUMAN RESOURCES BENEFITS ADMINISTRATOR testing was not performed today. Cranial Nerves: [...] Pinprick was not (more content not included)... [facility] 01-21-2024 History of Present illness Narrative [...] She is also swimming. Patient Entered Data vitaMedMD No flowsheet data found. Spasticity NRS 11/12/2023 [...] cognition, language or prosody on interview. Formal HUMAN RESOURCES BENEFITS ADMINISTRATOR testing was not performed today. Cranial Nerves: [...] Note copied to Mio Rogers MD via Isoflux. Time spent with patient: 40 minutes. More than 50% of the face to face time was dedicated to education and counseling regarding treatment options for spasticity. Patrick Bustamante MD documented in this encounter [facility] 01-21-2024 Instructions Patrick Bustamante MD - 01/21/2024 9:21 AM EST Baclofen 10 mg tablets Take 1 tablet in the morning, afternoon and at bedtime. Contact the office with any questions or concerns (Mychart or [phone]). Patrick Bustamante MD documented in this encounter [facility] 10-27-2023 Miscellaneous Notes The following approved medication [...] 11/12/2023 Tiffany Santillan documented in this encounter [facility] 09-03-2023 History of Present illness Narrative REFERRAL SOURCE: Mio Rogers [address] [facility] [id number] FOLLOWED BY: Erica Mercedes MD REASON FOR CONSULTATION: rehabilitation consult. PRINCIPAL NEUROLOGIC DIAGNOSIS: Tumefactive variant of cerebral amyloid angiopathy HISTORY OF ILLNESS: Date of Onset: 2011 BRIEF NARRATIVE DESCRIBING HISTORY: This 52 year old right handed female was referred by Mio Rogers MD for a spasticity consult. The patient was accompanied by no one. Medical records from [facility] were reviewed. Patient was in her regular [...] had botox injections several years ago at [facility] with good results. She stopped the [...] disturbance since 2011, started using cane in 2012 in community, uses forearm crutch, independent or [...] 12/16/2022 Neut% 62.8 12/16/2022 Lymph% 27.8 12/16/2022 [place]% 7.3 12/16/2022 Eosin% 1.2 09/17/2021 Baso% 0.4 12/16/2022 Abs Neut (ANC) 4.55 12/16/2022 Abs [place] 0.53 12/16/2022 Abs Eosin 0.10 12/16/2022 Abs [...] IN-HOSP CARE Sep 14, 2011 CHOLECYSTECTOMY 1999 Social History Tobacco Use Smoking status: Never [...] sec Cerebellar: There was no dysmetria on afhhac-jf-kqdz on the right. She was unable to perform on the left. Tytc-hm-idjw testing was without dysmetria bilaterally. Fine movements [...] Baclofen, Tizanidine and Other CPT Codes: Limbs: 85910, 76337, 91848 and 36000 EMG guidance: 53573 Limb(s) / area(s) injected: Left biceps, triceps, [...] Note copied to Mio Rogers MD via Isoflux. Time spent with patient: 70 minutes. More than 50% of the face to face time was dedicated to education and counseling regarding treatment options for spasticity. Patrick Bustamante MD documented in this encounter [facility] 07-22-2023 Hospital Discharge instructions Patient Education 07/22/2023 [...] your health care provider. General instructions Take ntrb-lel-zpljbik and prescription medicines only as told by [...] provider. Document Revised: 07/30/2021 Document Reviewed: 07/30/2021 [employer] Patient Education 2022 App[employer]og. Follow Up Care 06/06/2023 14:34:51 With:LIANNA RIOS PA-C, URL Address: [address] [place] [address] When: Unknown [facility] 07-08-2023 Hospital Discharge instructions Patient Education [...] Address: [facility] [address], [place] [address]- Business (1) When: Unknown Comments:Call for any problems. [facility] 07-08-2023 History of Present illness Narrative The appointment was canceled. documented in this encounter [facility] 06-24-2023 Evaluation + Plan note Future Scheduled TestsMA Mamm Screen w/CAD if perf and 3D Sage 06/24/23 [facility] [place] 12-20-2022 History of Present illness Narrative AMBULATORY TELEPHONE VISIT Monika Haskins has consented to this telephone encounter. Persons Present: patient Chief Complaint/Reason: follow up AL amyloidosis. HPI: Ms. Haskins presents today for follow up of AL amyloidoma of COOLER WORKER. Stable neurologic symptoms. Data Reviewed: Most recent labs and imaging results. 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 Total Time Spent: 14 minutes Mio Rogers MD documented in this encounter [facility] 12-17-2022 History of Present illness Narrative Ms. [...] Mio Rogers MD documented in this encounter [facility] 12-16-2022 History of Present illness Narrative Radiology [...] 2022 4:30 PM documented in this encounter [facility] 10-01-2022 Hospital Discharge instructions Patient Education 10/01/2022 [...] Address: [facility] [address], [place] [address]- Business (1) When: Unknown Comments:Keep scheduled appointment [facility] 09-19-2022 Hospital Discharge instructions Follow Up Care 09/19/2022 13:45:23 With:ROOPA FARIAS, Oseas Ward, URL Address: [facility] [address], [place] [address]- When:Within 6 Month(s) Comments:F/U O[facility] [place] 07-30-2022 Miscellaneous Notes If pt calls back the form was received and sent to the nurses. Monika Haskins is calling Mio Rogers MD today to check with the office to see if a form from [facility] was received yesterday regarding her medical certification. Pt added that the form needs to be completed and returned by next week. Pt also wanted the team to know that her MRI is scheduled for 09/[address] Rogers on 09/18. Pt would like to change her visit w/ the MD until after her scans but MD will be on service. She is also willing to do a VV appt instead. Please advise. Patient has been identified by name and birthdate. Pt can be reached at: [phone] (cell) Werner Zimmer Adm Asst July 26, 2022 documented in this encounter [facility] 06-04-2022 Miscellaneous Notes Spoke with patient and advised our office would happy to sign any forms, direct fax number given to patient Patient verbalized understanding Zonia Josue RN Pt called requesting SW information. The following was provided: Precious Hunt [phone] Patient has been identified by name and birthdate. Monicadirkmarsha Uribe June 04, 2022 Patient calling back to follow-up on forms being completed. I informed patient that Zonia is working on this with SW to see how they can assist. Patient requesting that Dr. Rogers call her back at [phone] Spoke with patient and relayed the following [...] [place] pearson if she has to. Monika Haskins is calling Mio Rogers MD today regarding Care Coordination ([employer] Form) Patient has been identified by name and birthdate. Requesting response back: [phone] (home) [phone] (work) [phone] (cell) Pt called requesting if our office can complete the [employer] Assistance Form for her electric bill today or as soon as possible. Pt provided: Email: [email or web address] ID# [id number] PH: [phone] Pt Email: [email or web address] Pt also wanted to see if an [...] June 03, 2022 documented in this encounter [facility] 04-17-2022 Hospital Discharge instructions Patient Education 04/17/2022 [...] fried and sweet foods. General instructions Take upnn-ruh-grjfkls and prescription medicines only as told by [...] 09/06/2010 Document Revised: 03/02/2020 Document Reviewed: 11/26/2018 [employer] Patient Education 2020 AppFog. Follow Up Care 04/15/2022 13:41:42 With:GABRIEL LUU, LIANNA Rodriguez, URL Address: [address] [place] [address]. [place] [address] [phone] When: Unknown [facility] 04-17-2022 Evaluation + Plan note Diagnostic Tests PendingUrine Culture 04/17/22 [facility] 03-05-2022 Hospital Discharge instructions Patient Education 03/05/2022 [...] fried and sweet foods. General instructions Take gnyb-clw-unsjunp and prescription medicines only as told by [...] 09/06/2010 Document Revised: 03/02/2020 Document Reviewed: 11/26/2018 [employer] Patient Education 2020 [employer]. Follow Up Care 02/12/2022 10:21:37 With:GBARIEL LUU, LIANNA Rodriguez, URL Address: [address] [place] [address] Business (1) When: only if needed [facility] [place] 02-28-2022 Miscellaneous Notes Done Zonia Josue RN Patient is calling again regarding handicap sticker Monika Haskins is calling Mio Rogers MD today regarding [place] - Other (handicap) Patient has been identified by name and birthdate. Patients handicap sticker is . Can we fill out and email to her. [email or web address] Requesting response back: call on cell [phone] (home) [phone] (work) [phone] (cell) Lakshmi Vazquez February 27, 2022 documented in this encounter [facility] 02-12-2022 Hospital Discharge instructions Patient Education 02/12/2022 [...] Address: [facility] [address], [place] [address]- Business (1) When:02/26/2022 09:18:40 [facility] Evaluation + Plan note Future Appointments Appointment Date:03/07/2022 11:15:00 AM Scheduled Provider:LIANNA RIOS PA-C Location:[facility] Appointment Type:URO Office Visit [facility] Evaluation + Plan note Future Appointments Appointment Date:09/25/2022 10:30:00 AM Scheduled Provider: Location:[facility] Appointment Type:Urology CALL PAT Appointment Date:10/01/2022 10:30:00 AM Scheduled Provider: Location:[facility] Appointment Type:Urology FT Appointment Date:10/23/2022 01:30:00 PM Scheduled Provider:Kelly Avina Location:[facility] Appointment Type:URO Office Visit [facility] Evaluation + Plan note Future Appointments Appointment Date:10/23/2022 01:30:00 PM Scheduled Provider:Kelly Avina Location:[facility] Appointment Type:URO Office Visit [facility] Evaluation + Plan note Future Appointments Appointment Date:07/01/2023 08:30:00 AM Scheduled Provider: Location:[facility] Appointment Type:Urology CALL PAT FT Appointment Date:07/08/2023 11:00:00 AM Scheduled Provider: Location:[facility] Appointment Type:Urology FT Appointment Date:07/22/2023 01:00:00 PM Scheduled Provider:LIANNA RIOS PA-C Location:[facility] Appointment Type:URO Office Visit Diagnostic Tests PendingPAP [id number] w/ HPV and Genotype rflx 06/24/23 Future Scheduled TestsMA Mamm Screen w/CAD if perf and 3D Sage 06/24/23 [facility] Evaluation + Plan note Future Appointments Appointment Date:07/08/2023 11:00:00 AM Scheduled Provider: Location:[facility] Appointment Type:Urology FT Appointment Date:07/22/2023 01:00:00 PM Scheduled Provider:LIANNA RIOS PA-C Location:[facility] Appointment Type:URO Office Visit Future Scheduled TestsMA Mamm Screen w/CAD if perf and 3D Sage 06/24/23 [facility] Evaluation + Plan note Future Appointments Appointment Date:07/22/2023 01:00:00 PM Scheduled Provider:LIANNA RIOS PA-C Location:[facility] Appointment Type:URO Office Visit Future Scheduled TestsMA Mamm Screen w/CAD if perf and 3D Sage 06/24/23 [facility] Evaluation + Plan note Future Appointments Appointment Date:09/09/2023 11:20:00 AM Scheduled Provider:Ara Michelle Location:[facility] Appointment Type:FM Open [facility] Evaluation + Plan note Future Appointments Appointment Date:05/18/2024 01:00:00 PM Scheduled Provider:DIANA Case APRN, [place] X Location:[facility] Appointment Type:URO Office Visit Appointment Date:05/25/2024 10:20:00 AM Scheduled Provider:Ara Michelle Location:[facility] Appointment Type:FM Open Appointment Date:01/13/2025 09:30:00 AM Scheduled Provider: Location:[facility] Appointment Type:FM Medicare Wellness Subsequent [facility] Evaluation + Plan note Future Appointments Appointment Date:06/24/2024 11:20:00 AM Scheduled Provider:Ara Michelle Location:[facility] Appointment Type:FM Open Appointment Date:01/13/2025 09:30:00 AM Scheduled Provider: Location:[facility] Appointment Type:FM Medicare Wellness Subsequent [facility] Evaluation + Plan note Future Appointments Appointment Date:08/26/2024 08:20:00 AM Scheduled Provider:Ara Michelle Location:[facility] Appointment Type: Open Appointment Date:01/13/2025 09:30:00 AM Scheduled Provider: Location:[facility] Appointment Type: Medicare Wellness Subsequent Diagnostic Tests PendingUrine Culture 07/29/24 [facility] Evaluation note Diagnosis Brain tumor (HCC) Neoplasm of unspecified nature of brain [facility] Diagnosis AL amyloidosis (HCC)- Primary Other amyloidosis [facility] Diagnosis AL amyloidosis (HCC) Other amyloidosis Brain tumor (HCC) Neoplasm of unspecified nature of brain [facility] Diagnosis AL amyloidosis (HCC)- Primary Other amyloidosis Brain tumor (HCC) Neoplasm of unspecified nature of brain [facility] Diagnosis APPOINTMENT CANCELLED- Primary [facility] Diagnosis 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 Brain tumor (HCC) Neoplasm of unspecified nature of brain [facility] Diagnosis 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 [facility]* Diagnosis Brain tumor (HCC) Neoplasm of unspecified nature of brain [facility]* Diagnosis Brain tumor (HCC) Neoplasm of unspecified nature of brain AL amyloidosis (HCC) Other amyloidosis [facility] Diagnosis AL amyloidosis (HCC)- Primary Other amyloidosis Brain tumor (HCC) Neoplasm of unspecified nature of brain [facility] Diagnosis 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 Brain tumor (HCC) Neoplasm of unspecified nature of brain [facility]* Diagnosis 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 [facility] Diagnosis 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 Brain tumor (HCC) Neoplasm of unspecified nature of brain [facility]* Diagnosis Post-menopausal bleeding Postmenopausal bleeding Complex ovarian cyst Uterine mass Other specified symptom associated with female genital organs [facility] N[facility] No data available for this section [facility] No data available for this section [facility] No data available for this section [facility] [place] Summary Purpose Family History No Family History [...] Referral Specialty Diagnoses / Procedures Referred By Jason toro Referred To Contact MR IMAGING Diagnoses Brain tumor (HCC) Procedures MRI BRAIN WO/W IVCON MRI BRAIN BRAIN STEM W/O W/CONTRAST MATERIAL Mio Rogers MD [address] [place] [address] Mr Imaging [place] [address] Referral ID Status Reason Start Date Expiration Date Visits Requested Visits Authorized [id number] Pending Review Auto-Generat ed Referral 04/16/2025 05/16/2025 1 1 Specialty Diagnoses / Procedures Referred By Contac t Referred To Contact MR IMAGING Diagnoses Brain tumor (HCC) AL amyloidosis (HCC) Procedures MRI BRAIN WO/W IVCON MRI BRAIN BRAIN STEM W/O W/CONTRAST MATERIAL Mio Rogers MD [address] [place] [address] Mr Imaging Referral ID Status Reason Start Date Expiration Date Visits Requested Visits Authorized [id number] Pending Review Auto-Generat ed Referral 12/20/2023 01/19/2024 1 1 Specialty Diagnoses / Procedures Referred By Contac t Referred To Contact MR IMAGING Diagnoses AL amyloidosis (HCC) Brain tumor (HCC) Procedures MRI BRAIN WO/W IVCON MRI BRAIN BRAIN STEM W/O W/CONTRAST MATERIAL Mansi Gallagher APRN.PROCEDURE WRITER [address] [place] [address] Mr Imaging Referral ID Status Reason Start Date Expiration Date V isits Requested Visits Authorized [id number] Closed Auto-Generate d Referral 09/20/2022 10/20/2023 1 1 Additional Source Comments INFORMATION SOURCE (unrecogn ized section and content) DATE CREATED AUTHOR 12/20/2019 [facility] DATE CREATED AUTHOR AUTHOR'S ORGANIZ ATION 08/02/2024 Goldstein Dmitriy [facility] DATE CREATED AUTHOR AUTHOR'S ORGANIZ ATION 09/04/2024 Goldstein Dmitriy [facility] DATE CREATED AUTHOR AUTHOR'S ORGANIZ ATION 11/11/2024 Goldstein Dmitriy [facility] DATE CREATED AUTHOR AUTHOR'S ORGANIZ ATION 12/17/2024 [facility] DATE CREATED AUTHOR AUTHOR'S ORGANIZ ATION 12/24/2024 [facility] EPIC Source Comments (unrecognize d section and content) In the event this informatio n is protected by the Federal Confidentiality of Alcohol and Drug Abuse Patient Records regulations: The Federal rules restrict any use of the information to criminally investigate or prosecute any alcohol or drug abuse patient.[facility] the event this information is protected by the Federal Confidentiality of Alcohol and Drug Abuse Patient Records regulations: The Federal rules restrict any use of the information to criminally investigate or prosecute any alcohol or drug abuse patient.[facility] the event this information is protected by the Federal Confidentiality of Alcohol and Drug Abuse Patient Records regulations: The Federal rules restrict any use of the information to criminally investigate or prosecute any alcohol or drug abuse patient.[facility] Center[facility] the event this information is protected by the Federal Confidentiality of Alcohol and Drug Abuse Patient Records regulations: The Federal rules restrict any use of the information to criminally investigate or prosecute any alcohol or drug abuse patient.[facility] CenterIn the event this information is protected by the Federal Confidentiality of Alcohol and Drug Abuse Patient Records regulations: The Federal rules restrict any use of the information to criminally investigate or prosecute any alcohol or drug abuse patient.[facility] CenterIn the event this information is protected by the Federal Confidentiality of Alcohol and Drug Abuse Patient Records regulations: The Federal rules restrict any use of the information to criminally investigate or prosecute any alcohol or drug abuse patient.[facility] CenterIn the event this information is protected by the Federal Confidentiality of Alcohol and Drug Abuse Patient Records regulations: The Federal rules restrict any use of the information to criminally investigate or prosecute any alcohol or drug abuse patient.[facility] CenterIn the event this information is protected by the Federal Confidentiality of Alcohol and Drug Abuse Patient Records regulations: The Federal rules restrict any use of the information to criminally investigate or prosecute any alcohol or drug abuse patient.[facility] CenterIn the event this information is protected by the Federal Confidentiality of Alcohol and Drug Abuse Patient Records regulations: The Federal rules restrict any use of the information to criminally investigate or prosecute any alcohol or drug abuse patient.[facility] CenterIn the event this information is protected by the Federal Confidentiality of Alcohol and Drug Abuse Patient Records regulations: The Federal rules restrict any use of the information to criminally investigate or prosecute any alcohol or drug abuse patient.[facility] CenterIn the event this information is protected by the Federal Confidentiality of Alcohol and Drug Abuse Patient Records regulations: The Federal rules restrict any use of the information to criminally investigate or prosecute any alcohol or drug abuse patient.[facility] CenterIn the event this information is protected by the Federal Confidentiality of Alcohol and Drug Abuse Patient Records regulations: The Federal rules restrict any use of the information to criminally investigate or prosecute any alcohol or drug abuse patient.[facility] CenterIn the event this information is protected by the Federal Confidentiality of Alcohol and Drug Abuse Patient Records regulations: The Federal rules restrict any use of the information to criminally investigate or prosecute any alcohol or drug abuse patient.[facility] CenterIn the event this information is protected by the Federal Confidentiality of Alcohol and Drug Abuse Patient Records regulations: The Federal rules restrict any use of the information to criminally investigate or prosecute any alcohol or drug abuse patient.[facility] CenterIn the event this information is protected by the Federal Confidentiality of Alcohol and Drug Abuse Patient Records regulations: The Federal rules restrict any use of the information to criminally investigate or prosecute any alcohol or drug abuse patient.[facility] CenterIn the event this information is protected by the Federal Confidentiality of Alcohol and Drug Abuse Patient Records regulations: The Federal rules restrict any use of the information to criminally investigate or prosecute any alcohol or drug abuse patient.[facility] CenterIn the event this information is protected by the Federal Confidentiality of Alcohol and Drug Abuse Patient Records regulations: The Federal rules restrict any use of the information to criminally investigate or prosecute any alcohol or drug abuse patient.[facility] CenterIn the event this information is protected by the Federal Confidentiality of Alcohol and Drug Abuse Patient Records regulations: The Federal rules restrict any use of the information to criminally investigate or prosecute any alcohol or drug abuse patient.[facility] CenterIn the event this information is protected by the Federal Confidentiality of Alcohol and Drug Abuse Patient Records regulations: The Federal rules restrict any use of the information to criminally investigate or prosecute any alcohol or drug abuse patient.[facility] CenterIn the event this information is protected by the Federal Confidentiality of Alcohol and Drug Abuse Patient Records regulations: The Federal rules restrict any use of the information to criminally investigate or prosecute any alcohol or drug abuse patient.[facility] CenterIn the event this information is protected by the Federal Confidentiality of Alcohol and Drug Abuse Patient Records regulations: The Federal rules restrict any use of the information to criminally investigate or prosecute any alcohol or drug abuse patient.[facility] CenterIn the event this information is protected by the Federal Confidentiality of Alcohol and Drug Abuse Patient Records regulations: The Federal rules restrict any use of the information to criminally investigate or prosecute any alcohol or drug abuse patient.[facility] CenterIn the event this information is protected by the Federal Confidentiality of Alcohol and Drug Abuse Patient Records regulations: The Federal rules restrict any use of the information to criminally investigate or prosecute any alcohol or drug abuse patient.[facility] CenterIn the event this information is protected by the Federal Confidentiality of Alcohol and Drug Abuse Patient Records regulations: The Federal rules restrict any use of the information to criminally investigate or prosecute any alcohol or drug abuse patient.[facility] CenterIn the event this information is protected by the Federal Confidentiality of Alcohol and Drug Abuse Patient Records regulations: The Federal rules restrict any use of the information to criminally investigate or prosecute any alcohol or drug abuse patient.[facility] CenterIn the event this information is protected by the Federal Confidentiality of Alcohol and Drug Abuse Patient Records regulations: The Federal rules restrict any use of the information to criminally investigate or prosecute any alcohol or drug abuse patient.[facility] Reason for Visit (unrecogniz ed section and content) Reason Comments Spasticity Specialty Diagnoses / Procedures Referred By Contac t Referred To Contact [facility] Diagnoses Spasticity due to old stroke Procedures CONSULT TO PHYSICAL MEDICINE AND REHABILITATION OFFICE/OUTPATIENT NEW HIGH MDM [id number] MINUTES Mio Rogers MD [address] [place] [address] [facility] [place] [address] Referral ID Status Reason Start Date Expiration Date Visits Requested Visits Authorized [id number] Pending Review PCP Requested Referral Auto-Generate d Referral 04/22/2023 04/14/2024 1 1 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 Comments 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 Reason Comments Stone Paver - Other Question re: oc t's appts Reason Onset Date Comments Refill Request 09/11/2022 Reason Onset Date Comments Refill Request 12/12/2022 Reason Comments Radiology MRI Specialty Diagnoses / Procedures Referred By Contac t Referred To Contact MR IMAGING Diagnoses AL amyloidosis (HCC) Brain tumor (HCC) Procedures MRI BRAIN WO/W IVCON MRI BRAIN BRAIN STEM W/O W/CONTRAST MATERIAL Mansi Gallagher APRN.PROCEDURE WRITER [address] [place] [id number] Mr Imaging Referral ID Status Reason Start Date Expiration Date V isits Requested Visits Authorized [id number] Closed Auto-Generate d Referral 09/20/2022 10/20/2023 1 1 Reason Comments Established Patient Reason Comments Appointment Cancelled Reason Onset Date Comments Refill Request 10/24/2023 Reason Onset Date Comments Refill Request 03/17/2024 Specialty Diagnoses / Procedures Referred By Contac t Referred To Contact MR IMAGING Diagnoses Brain tumor (HCC) AL amyloidosis (HCC) Procedures MRI BRAIN WO/W IVCON MRI BRAIN BRAIN STEM W/O W/CONTRAST MATERIAL Mio Rogers MD [address] [id number] Mr [facility] [place] [address] Referral ID Status Reason Start Date Expiration Date Visits Requested Visits Authorized [id number] Authorized Auto-Generat ed Referral 12/24/2023 01/15/2025 1 1 Referral ID Status Reason Start Date Expiration Date V isits Requested Visits Authorized [id number] Closed Auto-Generate d Referral 12/24/2023 01/15/2025 1 1 Reason Comments Stone Paver - Other [place] For Reason Comments Spasticity Botulinum Toxin Injections Specialty Diagnoses / Procedures Referred By Contac t Referred To Contact Neurology / PHYSICAL MEDICINE AND REHAB Diagnoses 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 Procedures BOTULINUM TOXIN A PER 1 UNIT INITIAL J0585 - BOTULINUM TOXIN A UP TO 400 UNITS EVERY 90 DAYS x 1 YEAR FOR SPASTICITY 73120 - CHEMODENERV 1 EXTREMITY 1-4 52583 - CHEMODENERV ADDL EXTREM 1-[place] [address] [place] [address] Patrick Bustamante MD [address] [place] [address] Referral ID Status Reason Start Date Expiration Date V isits Requested Visits Authorized [id number] Authorized 11/12/2023 11/23/2024 99 99 Specialty Diagnoses / Procedures Referred By Jason toro Referred To Contact Neurology / PHYSICAL MEDICINE AND REHAB Diagnoses 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) Procedures BOTULINUM TOXIN A PER 1 UNIT RENEWAL J0585 - BOTULINUM TOXIN A UP TO 400 UNITS EVERY 90 DAYS x 1 YEAR FOR SPASTICITY 21921 - CHEMODENERV 1 EXTREMITY 1-4 59425 - [place]MODEN[place] ADDL EXTREM 1-4 [place] [address] - CHEMODENERV 1 EXTREM 5/> [place] [address] EACH ADDITIONAL EXTREMITY, 5 [place] [address] [place] [address] Patrick Bustamante MD [address] [place] [address] Referral ID Status Reason Start Date Expiration Date V isits Requested Visits Authorized [id number] Authorized 12/15/2024 11/23/2025 99 99 Reason Comments post menopausal bleeding Care Teams (unrecognized sec tion and content) Sponge Hooker Relationship Specialty Start Date End Date Erica Mercedes PCP - General Family Practice 11/05/12 Sponge Hooker Relationship Specialty Start Date End Date Erica Mercedes PCP - General Family Practice 11/05/12 Sponge Hooker Relationship Specialty Start Date End Date Erica Mercedes PCP - General Family Medicine 11/05/12 Sponge Hooker Relationship Specialty Start Date End Date Erica Mercedes PCP - General Family Medicine 11/05/12 Sponge Hooker Relationship Specialty Start Date End Date Erica Mercedes PCP - General Family Medicine 11/05/12 Sponge Hooker Relationship Specialty Start Date End Date Erica Mercedes PCP - General Family Medicine 11/05/12 Sponge Hooker Relationship Specialty Start Date End Date Erica Mercedes PCP - General Family Medicine 11/05/12 Sponge Hooker Relationship Specialty Start Date End Date Erica Mercedes PCP - General Family Medicine 11/05/12 Sponge Hooker Relationship Specialty Start Date End Date Erica Mercedes PCP - General Family Medicine 11/05/12 Sponge Hooker Relationship Specialty Start Date End Date Erica Mercedes PCP - General Family Medicine 11/05/12 Sponge Hooker Relationship Specialty Start Date End Date Erica Mercedes PCP - General Family Medicine 11/05/12 Mitzy Brush, MELVIN [address] [place] [address] Specialty Stone Paver Hematology/Oncology 07/25/23 Sponge Hooker Relationship Specialty Start Date End Date Erica Mercedes PCP - General Family Medicine 11/05/12 Sponge Hooker Relationship Specialty Start Date End Date Erica Mercedes PCP - General Family Medicine 11/05/12 Mitzy Brush, MELVIN [address] [place] [address] Specialty Stone Paver Hematology/Oncology 07/25/23 Sponge Hooker Relationship Specialty Start Date End Date Erica Mercedes PCP - General Family Medicine 11/05/12 Mitzy Brush, MELVIN [id number] [place] [address] Specialty Stone Paver Hematology/Oncology 07/25/23 Sponge Hooker Relationship Specialty Start Date End Date Erica Mercedes PCP - General Family Medicine 11/05/12 Mitzy Brush, MELVIN [id number] [place] [address] Specialty Stone Paver Hematology/Oncology 07/25/23 Sponge Hooker Relationship Specialty Start Date End Date Erica Mercedes PCP - General Family Medicine 11/05/12 Mitzy Brush [place] [id number] [place] [address] Specialty Stone Paver Hematology/Oncology 07/25/23 Sponge Hooker Relationship Specialty Start Date End Date Erica Mercedes PCP - General Family Medicine 11/05/12 Mitzy Brush, MELVIN [address] [place] [address] Specialty Stone Paver Hematology/Oncology 07/25/23 Sponge Hooker Relationship Specialty Start Date End Date Erica Mercedes PCP - General Family Medicine 11/05/12 [place] [address] [place] [address] Specialty Stone Paver Hematology/Oncology 07/25/23 Sponge Hooker Relationship Specialty Start Date End Date Erica Mercedes PCP - General Family Medicine 11/05/12 [place] [address] [place] [address] Specialty Stone Paver Hematology/Oncology 07/25/23 Sponge Hooker Relationship Specialty Start Date End Date Erica Mercedes PCP - General Family Medicine 11/05/12 Mitzy Brush [place] [id number] [place], [place] [id number] Specialty Stone Paver Hematology/Oncology 07/25/23 Sponge Hooker Relationship Specialty Start Date End Date Erica Mercedes PCP - General Family Medicine 11/05/12 [place] [address] [place] [address] Specialty Stone Paver Hematology/Oncology 07/25/23 Sponge Hooker Relationship Specialty Start Date End Date Erica Mercedes PCP - General Family Medicine 11/05/12 Mitzy Brush, MELVIN [address] [place] [address] Specialty Stone Paver Hematology/Oncology 07/25/23 Sponge Hooker Relationship Specialty Start Date End Date Erica Mercedes PCP - General Family Medicine 11/05/12 [place] [address] [place] [phone] Specialty Stone Paver Hematology/Oncology 07/25/23 FOR RECORDS PERTAINING TO PATIENTS [...] BE BASED ON THE PRIMARY CLINICAL RECORDS. [facility]. provides no warranty or guarantee of the accuracy or completeness of information in this document.
[2024-12-31 09:32] VITALS: BP 154/81; PULSE 88; TEMP 36.3; O2SAT 98; BMI 31.5
[2024-12-31] MEDS: LACTATED RINGER'S SOLUTION 1,000 ML 50 ML IV (09:47)
--- NOTE | 2024-12-31 11:47 | PM.ONB ---
Brief Operative Note Date of procedure: 12/31/24 Pre-op diagnosis general: thickened endometrium, pmb Post-op diagnosis: same as pre-op Procedure: NAME OF PROCEDURE: [ D&c hysteroscopy with myosure] PROCEDURE: The patient was taken back to the Operating Room where she was prepped and draped in normal sterile fashion after being placed under general anesthesia without difficulty. She was also placed in the dorsal lithotomy position. A weighted speculum was placed in the patient?s vagina. The anterior lip of the cervix was identified and grasped with a single tooth tenaculum. The patient?s uterus was then sounded roughly to [? 8] cm. The patient was then gently dilated using Hegar dilators. The hysteroscope was passed through the patient?s cervix into the uterus. Both ostia were identified. fluffy appearing endometrium. No gross evidence of malignancy, no gross evidence of polyps or fibroids. The myosure apparatus was placed through the scope, The myosure was engaged and endometrial curretting were removed along with endometrial polyp, The hysteroscope was then removed from the uterus. The endometrial curettings were sent out to pathology. The single tooth tenaculum was then removed from the patient's anterior lip of the cervix where excellent hemostasis was noted. All instruments were removed from the patient?s vagina. The patient tolerated the procedure well. Sponge, lap and needle counts were correct times two. The patient was taken to the Recovery Room in stable condition.Room in stable condition. Anesthesia: MAC Surgeon: Carter Agosto Estimated blood loss (mL): 5 Pathology: other (endometrial polyp and currettings) Condition: stable Disposition: PACU
[2024-12-31 11:49] VITALS: BP 109/77; PULSE 103; O2SAT 97
[2024-12-31 12:04] VITALS: BP 107/75; PULSE 71; O2SAT 99
--- NOTE | 2024-12-31 12:06 | PC.NURSE ---
Peripad has small amount bloody drainage; no clots noted
--- NOTE | 2024-12-31 12:09 | PC.NURSE ---
No increase in drainage on peripad
[2024-12-31 12:34] VITALS: BP 115/89; PULSE 82; O2SAT 98
--- NOTE | 2024-12-31 12:39 | PC.NURSE ---
Peripad changed for moderate amount bloody drainage without clots
[2024-12-31] MEDS: HYDROCODONE/ACET 5-325 MG TABLET 1 TAB PO (12:43)
--- NOTE | 2024-12-31 12:44 | PC.NURSE ---
Medicated with oral pain medication as ordered
[2024-12-31 13:04] VITALS: BP 117/80; PULSE 86; TEMP 36.3; O2SAT 98
== END 2024-12-31 13:14 | disposition home or self-care (01) ==
PROVIDERS: PCP Nurse Practitioner; Visit Provider Obstetrics & Gynecology
PROC: (CPT 58558; principal; 2024-12-31 10:10)
DX: N95.0 Postmenopausal bleeding (principal); N85.8 Other specified noninflammatory disorders of uterus; R93.89 Abnormal findings on diagnostic imaging of other specified body structures; N80.03 Adenomyosis of the uterus; N84.0 Polyp of corpus uteri; Z90.49 Acquired absence of other specified parts of digestive tract
CPT/HCPCS: 58558; 36415; 85025; 88305; J1885; J2250; J2405; J2704; J3010

== ENCOUNTER 2025-01-25 10:33 | Emergency (ER) | payer MEDICARE, SELFPAY ==
[2025-01-25] VITALS (15 sets, daily range): BP systolic 131–139; BP diastolic 70–77; PULSE 97–124; TEMP 36.9; O2SAT 96–98; BMI 30.7
--- NOTE | 2025-01-25 10:54 | ECG_ITS ---
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 Measurements Intervals [place] Rate: 110 P: 51 MT: 160 QRS: 8 QRSD: 98 T: 57 QT: 362 QTc: 427 Interpretive Statements 1120 Sinus tachycardia 1570 with occasional ventricular premature complexes 9140 abnormal rhythm ECG Compared to ECG 12/28/2024 09:38:26 Ventricular premature complex(es) now present Sinus rhythm no longer present Electronically Signed On 01-25-2025 13:06:34 EST by OLEKSANDR VALENZUELA M.D.
--- NOTE | 2025-01-25 10:57 | ED_ITS ---
HPI HPI - General Adult General Chief complaint: Ear Stated complaint: WEAKNESS Time Seen by Provider: 01/25/25 10:54 Source: patient Mode of arrival: ambulance Limitations: no limitations History of Present Illness HPI narrative: Patient is a 54-year-old female who is presenting to the ER with strokelike signs and symptoms. Patient has left facial droop that started around 930 at 10 AM yesterday. Patient has past history of stroke where she has left-sided deficits typically. Patient is also having some left ear swelling. Patient is saw her PCP 2 days ago, patient has been started on Augmentin and prednisone for sinus/left ear infection. 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 Patient says that she is 1 of 30 people in the world that have this type of rare brain tumor. The brain tumor has calcified itself. 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 Patient does get Botox to help relax her left arm. Patient is able to walk, she does wear a brace for the left lower leg, but she is able to walk on her own very slowly with a stutter gait. Yesterday patient had drainage to the left eye when she woke up, patient did not have any drainage to her left eye when she woke up today. Patient does have redness and swelling to the left outer ear. Patient has mild pain to the left i nner ear. Patient has no significant sinus pressure. Patient is not unable to wrinkle her left forehead, she is unable to close her left eye. Patient has left facial droop. Patient has signs of Reis's palsy. Patient looked up on the Internet last night and today and thought she had Reis's palsy as well. However with her significant pain history, she came into the ER for evaluation by EMS. All systems are negative except as noted/marked. All systems reviewed and otherwise negative. Nurses note and vital signs reviewed and patient is not hypoxic. General: The patient appears well and in no apparent distress. Patient is resting comfortably on cart. Patient is not toxic, lethargic, or listless Skin: Warm, dry, no pallor noted. There is no rash noted. No petechiae, purpura. Head: Normocephalic, atraumatic; patient is unable to wrinkle her left forehead. She cannot close her left eye. Patient has left facial droop. Patient has evidence of Reis's palsy. Eye: Normal conjunctiva, no drainage, EOMI. PERRL Ears, Nose, Mouth, and Throat: oral mucosa is moist. Patient left TM shows erythema, mild bulging, no perforation. Air-fluid levels and serous fluid noted behind left TM. Patient has mild to moderate swelling to the left outer ear. Ear canal is not swelling or closed off. Patient has no signs of mastoiditis. She has no redness to the left mastoid, no pain to palpation to left mastoid. Nares patent. Mouth without vesicles. Cardiovascular: Regular Rate and Rhythm, no murmur, gallop, rub Respiratory: Patient is in no distress, no accessory muscle use, lungs are clear to auscultation, no wheezing, rales or rhonchi Back: non-tender, no CVA tenderness bilaterally to percussion. No CT LS midline pain GI: no tenderness to palpation, no masses appreciated. No rebound, guarding, or rigidity noted. No distention Musculoskeletal: Patient has full range of motion of all of the extremities, no motor, sensory, or focal neurological deficits Neurological: A&O x4, normal speech, patient is at her baseline for loss of function to the left arm from previous right brain tumor. She has normal function of her left leg. Patient has a brace in her left leg to help with foot drop. No new acute neurological deficits besides evidence of Reis's palsy with unable to wrinkle left forehead, cannot close left eye, and patient's mouth is drooped on the left side as well. Psychiatric: Cooperative Related Data Home Medications ?Medication ?Instructions ?Recorded ?Confirmed baclofen 20 mg tablet 20 mg PO Q8H PRN muscle spasm 12/28/24 12/31/24 bupropion HCl 150 mg 24 hr tablet, 150 mg PO DAILY 12/28/24 12/28/24 extended release epinephrine 0.3 mg/0.3 mL 0.3 mg IM Q10M PRN anaphylaxis 12/28/24 12/31/24 injection, auto-injector (EpiPen) onabotulinumtoxinA 100 unit extremity contracture 12/28/24 solution for injection (Botox) phentermine 37.5 mg tablet 18.75 mg PO DAILY 12/28/24 12/31/24 topiramate 50 mg tablet 50 mg PO Q12H 12/28/24 12/31/24 vibegron 75 mg tablet (Gemtesa) 75 mg PO DAILY 12/28/24 12/28/24 Previous Rx's ?Medication ?Instructions ?Recorded mupirocin 2 % topical ointment 1 applic topical TID 21 days #15 01/25/25 grams valacyclovir 1 gram tablet 1,000 mg PO Q8H 7 days #21 tabs 01/25/25 Allergies Allergy/AdvReac Type Severity Reaction Status Date / Time bee venom protein (honey bee) Allergy Anaphylaxis Verified 12/31/24 09:53 morphine Allergy irregular Verified 12/31/24 09:53 heart beat Opioid HPI Opioid Management Most Recent Opioid Data: Last Pain Scale 2 12/31/24 13:04 12/31/24 [facility] Medical History (Updated 01/25/25 @ 13:38 by Juan Daniel Bhardwaj MD) Fatigue ?R53.83 - Other fatigue (ICD-10) Cellulitis ?L03.90 - Cellulitis, unspecified (ICD-10) 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, unspecified (ICD-10) Brain tumor (~2011) ?D49.6 - Neoplasm of unspecified behavior of brain (ICD-10) Left arm weakness ?R29.898 - Other symptoms and signs involving the musculoskeletal system (ICD-10) Left leg weakness ?R29.898 - Other symptoms and signs involving the musculoskeletal system (ICD-10) Contracture, left wrist ?M24.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 - Contracture, left wrist (ICD-10) Contracture, left hand ?M24.542 - Contracture, left hand (ICD-10) Deep vein thrombosis (2010) ?I82.409 - Acute embolism and thrombosis of unspecified deep veins of unspecified lower extremity (ICD-10) History of blood transfusion ?Z92.89 - Personal history of other medical treatment (ICD-10) Migraine ?G43.909 - Migraine, unspecified, not intractable, without status migrainosus (ICD-10) Overactive bladder ?N32.81 - Overactive bladder (ICD-10) Postoperative nausea and vomiting ?R11.2 - Nausea with vomiting, unspecified (ICD-10) ?Z98.890 - Other specified postprocedural states (ICD-10) Menopause ?Z78.0 - Asymptomatic menopausal state (ICD-10) Surgical History (Updated 12/31/24 @ 09:27 by Shannan Valladares RN) History of brain surgery ?Z98.890 - Other specified postprocedural states (ICD-10) History of cholecystectomy ?Z90.49 - Acquired absence of other specified parts of digestive tract (ICD- 10) History of dilation and curettage ?Z98.890 - Other specified postprocedural states (ICD-10) History of section ?Z98.891 - History of uterine scar from previous surgery (ICD-10) Family History (Updated 12/28/24 @ 09:27 by Chelsi Perry NP) Other Family history of aneurysm Family history of cancer Family history of diabetes mellitus Family history of hypertension Family history of myocardial infarction Social History (Updated 12/28/24 @ 09:25 by Chelsi Perry NP) Within the past year, how often did you have a drink containing alcohol: monthly or less Smoking status: Never smoker Non-prescribed substance use: denies use Highest level of school completed/degree received: Bachelor's degree Little interest or pleasure in doing things: not at all Feeling down, depressed, or hopeless: not at all Exam Constitutional Vital Signs, click to edit/add: Last Vital Signs Temp 98.4 F 01/25/25 10:34 Pulse 102 H 01/25/25 13:50 Resp 15 01/25/25 13:50 BP 139/77 01/25/25 12:02 Pulse Ox 98 01/25/25 13:30 O2 Del Method Room Air 01/25/25 10:34 Course Vital Signs Vital signs: Vital Signs Temperature 98.4 F 01/25/25 10:34 Pulse Rate 124 H 01/25/25 10:34 Respiratory Rate 20 01/25/25 10:34 Blood Pressure 131/70 01/25/25 10:34 Pulse Oximetry 98 01/25/25 10:34 Oxygen Delivery Method Room Air 01/25/25 10:34 Temperature 98.4 F 01/25/25 10:34 Pulse Rate 102 H 01/25/25 13:50 Respiratory Rate 15 01/25/25 13:50 Blood Pressure 139/77 01/25/25 12:02 Pulse Oximetry 98 01/25/25 13:30 Oxygen Delivery Method Room Air 01/25/25 10:34 Medical Decision Making MDM Narrative Medical decision making narrative: 15 minutes was spent prior to patient's discharge discussing her brain tumor and patient was educating me about her condition. Patient has evidence of Reis's palsy. CT of the brain and CT angio head and neck showed no acute findings. Patient was given copies of her CT of the head and angio of head and neck, and chest x-ray. 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 Education on Reis's palsy was done at bedside and on discharge paperwork. Education using Lacri- Lube at nighttime with taping her eye shut was discussed. Patient is currently on Augmentin and prednisone. Patient was prescribed Bactroban to place in the left outer ear to help with the redness and swelling, minimal yellowish discharge coming from the skin from left outer ear. She has no signs of left mastoiditis. Patient patient is placed on Valtrex, patient's Reis's palsy started yesterday morning around 930 to 10 AM. Patient is very thankful for the complete workup. Patient was able to walk out to the lobby and wait for her ride. No questions at discharge. Patient was in extreme pleasure to take care of and I thanked her for educating me about her rare condition Lab Data Lab results reviewed: Yes I reviewed the patient's lab results Labs: Lab Results 01/25/25 Range/Units 11:20 WBC 11.2 H (4.0-11.0) 10^3/uL RBC 4.96 (4.20-5.40) 10^6/uL Hgb 14.0 (12.0-16.0) g/dL Hct 43.0 (36.0-48.0) % MCV 86.7 (81.0-99.0) fL MCH 28.2 (26.7-34.0) pg MCHC 32.6 (29.9-35.2) g/dL RDW 13.0 (11.0-15.0) % Plt Count 239 (150-450) 10^3/uL MPV 12.0 (9.5-13.5) fL Neut % (Auto) 82.4 H (43.0-75.0) % Lymph % (Auto) 10.2 L (20.5-60.0) % [place] % (Auto) 6.3 (1.7-12.0) % Eos % (Auto) 0.4 L (0.9-7.0) % Baso % (Auto) 0.4 (0.2-2.0) % Neut # (Auto) 9.2 H (1.4-6.5) 10^3/uL Lymph # (Auto) 1.1 L (1.2-3.8) 10^3/uL [place] # (Auto) 0.7 (0.3-0.8) 10^3/uL Eos # (Auto) 0.0 (0.0-0.7) 10^3/uL Baso # (Auto) 0.0 (0.0-0.1) 10^3/uL Abs Immat Gran (auto) 0.03 (0.00-0.03) 10^3/uL Imm/Tot Granulo (auto) 0.3 (0.0-0.5) % PT 11.0 (9.0-11.6) sec INR 1.04 APTT 25.9 (22.3-36.2) sec Sodium 142 (136-145) mmol/L Potassium 3.5 (3.5-5.1) mmol/L Chloride 108 H (98-107) mmol/L Carbon Dioxide 25.6 (21.0-32.0) mmol/L Anion Gap 11.9 BUN 14.0 (7.0-18.0) mg/dL Creatinine 0.98 (0.55-1.02) mg/dL Est GFR ( Amer) >60 (>=60 mL/min/1.73m^2) Est GFR (Non-Af Amer) 60 (>=60 mL/min/1.73m^2) BUN/Creatinine Ratio 14.3 Glucose 116 H (74-106) mg/dL Calcium 9.4 (8.5-10.1) mg/dL Total Bilirubin 0.3 (0.2-1.0) mg/dL AST 10 L (15-37) U/L ALT 9 L (14-59) U/L Alkaline Phosphatase 57 (46-116) U/L Troponin I High Sens 4.9 (4.0-51.3) pg/mL Total Protein 7.5 (6.4-8.2) g/dL Albumin 3.7 (3.4-5.0) g/dL Globulin 3.8 g/dL Albumin/Globulin Ratio 1.0 POC Glucose 114 H (74-106) mg/dL ECG Data Attestation: I personally reviewed and interpreted this ECG as follows: (He potation. Sinus tachycardia at 110. Normal axis deviation. No acute ST elevation, no acute ectopy. QTc of 427.) Discharge Plan Discharge Chief Complaint: Ear Clinical Impression: Reis's palsy, Left acute otitis media, Acute infection of left external ear Patient Disposition: Home, Self-Care Time of Disposition Decision: 13:41 Condition: Fair Mode of Transportation: Private Vehicle Prescriptions / Home Meds: New valacyclovir 1 gram tablet 1,000 mg PO Q8H 7 Days Qty: 21 0RF mupirocin 2 % ointment 1 applic topical TID 21 Days Qty: 15 0RF Rx Instructions: Apply to left outer ear for 2 to 3 weeks until infection improves No Action baclofen 20 mg tablet 20 mg PO Q8H PRN (Reason: muscle spasm) bupropion HCl 150 mg tablet extended release 24 hr 150 mg PO DAILY phentermine 37.5 mg tablet 18.75 mg PO DAILY topiramate 50 mg tablet 50 mg PO Q12H Gemtesa 75 mg tablet 75 mg PO DAILY epinephrine [EpiPen] 0.3 mg/0.3 mL auto-injector 0.3 mg IM Q10M PRN (Reason: anaphylaxis) Rx Instructions: for 2 doses Botox 100 unit recon soln Print Language: [place] Instructions: Reis Palsy (ED), How to Use Ear Drops (ED), Ear Infection (ED), Fluid In The Ear (Serous Otitis Media) (ED) Additional Instructions: Continue and finish Augmentin and prednisone. Start taking Valtrex as well to help with Reis's palsy. As discussed at bedside, use of Lacri-Lube in the left eye before bedtime, tape your eye shut as well with medical tape or other tape as needed. Do this every night before bedtime for the next 1 to 2 months until you can start closing her eye appropriately. During the day use rewetting drops were refreshing eyedrops to help keep left eye lubricated Reis's palsy could last for 4 to 6 weeks, follow-up with local neurology along with your neurologist in [place] as well. Use the use Bactroban to the left outer ear for the next 2 or 3 weeks until infection improves It has been an absolute pleasure talking to you, thank you for educating me about your medical history, good luck to you !!!!!!!!!!!!!!!!!!!!!!!! Referrals: MAYNOR CRAVEN [Primary Care Provider] - 1 week Discharge Date/Time: 01/25/25 13:50
--- OUTSIDE RECORDS SUMMARY | 2025-01-25 11:07 | XMS_ITS | CCD ---
Author Organization [facility] Care Team Providers Care Slitter Service And Setter Name Role Phone MISC, DOCTOR Primary Care Unavailable NICOLA JOHNSON Admitting Unavailable NICOLA JOHNSON Attending Unavailable NICOLA JOHNSON Consulting Unavailable YAMILETH LONGO Consulting Unavailable TEREZA RAMÍREZ Consulting Unavailable Kelley Gómez Primary Care Physician [phone] Erica Mercedes Primary Care Provider Erica Mercedes Primary Care Provider Erica Mercedes Primary Care Provider Ara Vanegas Primary Care Physician [phone] Gonsalo CHARLES, Mitzy Unavailable Erica Mercedes Primary Care Provider Jackie Pop V Unavailable Unavailable Guilherme, Ara L Attending Unavailable Guilherme, Ara L Attending Unavailable Guilherme, Ara L Attending Unavailable Orzech, Elo X Attending Unavailable Orzech, Elo X Attending Unavailable Guilherme, Ara L Attending Unavailable Guilherme, Ara L Admitting Unavailable Guilherme, Ara L Attending Unavailable Guilherme, Ara L Attending Unavailable Guilherme, Ara L Attending Unavailable Guilherme, Ara L Attending Unavailable Guilherme, Ara L Attending Unavailable Guilherme, Ara L Attending Unavailable Guilherme, Ara L Attending Unavailable Guilherme, Ara L Attending Unavailable Guilherme, Ara L Attending Unavailable Guilherme, Ara L Attending Unavailable Guilherme, Ara L Attending Unavailable Guilherme, Ara L Attending Unavailable VALENT, MIO N Referring Unavailable ERICA MERCEDES Primary Care Unava ilable ERICA MERCEDES Primary Care Unava ilable VALENT, MIO N Referring Unavailable ERICA MERCEDES Primary Care Unava ilable BUSTAMANTE, PATRICK Attending Unavailable BUSTAMANTE, PATRICK Referring Unavailable ERICA MERCEDES Primary Care Unava ilable BUSTAMANTE, PATRICK Attending Unavailable ERICA MERCEDES Primary Care Unava ilable BUSTAMANTE, PATRICK Referring Unavailable BUSTAMANTE, PATRICK Attending Unavailable BUSTAMANTE, PATRICK Referring Unavailable BUSTAMANTE, PATRICK Attending Unavailable ERICA MERCEDES Primary Care Unava ilable BUSTAMANTE, PATRICK Attending Unavailable BUSTAMANTE, PATRICK Referring Unavailable ERICA MERCEDES Primary Care Unava ilable VALENT, MIO N Attending Unavailable VALENT, MIO N Referring Unavailable ERICA MERCEDES Primary Care Unava ilable Unavailable Primary Care Provider UnavailCarter Hill DO Attending Provider Carter Agosto Attending Unavailable SurendraCarter lopez Admitting Unavailable JULIA, KELLEY Attending Unavailable JULIA, KELLEY Attending Unavailable Guilherme, Ara L Attending Unavailable Guilherme, Ara L Attending Unavailable Guilherme, Ara L Attending Unavailable Guilherme, Ara L Attending Unavailable Guilherme, Ara L Attending Unavailable Guilherme, Ara L Attending Unavailable Allergies Allergy Classification Reported Allergen(s) Allergy Type Date of Onset Reaction(s) Facility Opioid Agonists (1 source) Morphine Drug Allergy 6 Hives [facility] (4 sources) Morphine; Translations: [morphine] Drug Allergy 4 [facility] (20 sources) Morphine; Translations: [morphine] Drug Allergy 6 Eruption of skin (disorder), Hives, Rash [facility] (5 sources) Bee/Wasp/Ant venom; Translations: [Bee Stings] Propensity to adverse reactions to substance Swelling (finding) [facility] (8 sources) Honey bee venom Propensity to adverse reactions 5 Swelling [facility] Medications Current Medications Medication Drug Class(es) Dates Sig (Normalized) Sig (Original) 0.5 ML tirzepatide 10 MG/ML Auto-Injector [Mounjaro] (3 sources) Start: 02-25-2024 inject 5 mg by subcutaneous injection every week Mounjaro 5 mg/0.5 mL subcutaneous solution 5 mg, SubCutaneous, qWeek, # 4 EA, Refills(s) 2, Pharmacy: [facility], 178, cm, 02/25/24 11:11:00 [...] day(s), # 21 cap(s), Refills(s) 0, Pharmacy: [facility]/pharmacy #[id number], 178, cm, 03/17/24 12:53:00 EDT, Height/Length Dosing, 106.8, kg, 03/17/24 12:53:00 EDT, Weight Dosing Start Date: 03/17/24 Stop Date: 03/24/24 Status: Ordered Capmist DM 15 mg-400 mg-60 mg oral tablet (3 sources) Start: 4 Capmist DM 15 mg-400 mg-60 mg oral tablet 1 tab(s), Oral, q4hr, 30 tab(s), Refill(s) 0, not to exceed 4 doses/day, [facility]/pharmacy #[id number], 178, cm, 03/17/24 12:53:00 EDT, Height/Length Dosing, 106.8, kg, 03/17/24 12:53:00 EDT, Weight Dosing Start Date: 03/17/24 Status: Ordered cephalexin 500 mg oral capsule (8 sources) Cephalosporin Antibacterial Start: 2 take 1 capsule by mouth twice daily Keflex 500 mg Cap 500 mg = 1 cap(s), Oral, BID, Start the day prior to procedure, # 14 cap(s), Refills(s) 0, Pharmacy: [facility]/pharmacy #[id number], 177, cm, 04/17/22 14:39:00 EDT, Height/Length Dosing, 77, kg, 04/17/22 14:39:00 EDT, Weight Dosing Start Date: 09/19/22 Status: Ordered Start: 04-17-2022 End: 04-27-2022 take 1 capsule by mouth every twelve hours Keflex 500 mg Cap 500 mg = 1 cap(s), Oral, q12hr, X 10 day(s), # 20 cap(s), Refills(s) 0, Pharmacy: [facility]/pharmacy #[id number], 177, cm, 04/17/22 14:39:00 EDT, Height/Length Dosing, 77, kg, 04/17/22 14:39:00 EDT, Weight Dosing Start Date: 04/17/22 Stop Date: 04/27/22 Status: Ordered Start: 02-11-2022 take 1 capsule by mo [facility] twice daily Keflex 500 mg Cap 500 mg = 1 cap(s), Oral, BID, Start the day prior to procedure, # 14 cap(s), Refills(s) 0, [id number], 175, cm, 02/11/22 13:14:00 EDT, Height/Length [...] Comment on above: Take 1 tablet by [facility] once daily. Excedrin Extra Strength (3 [...] Daily, # 30 tab(s), Refills(s) 3, Pharmacy: [facility], 178, cm, 01/14/24 10:21:00 EST, Height/Length Dosing, 109, kg, 01/14/24 10:21:00 EST, Weight Dosing Start Date: 02/04/24 Status: Ordered Start: 02-18-2017 End: 12-20-2022 take 1 tablet by mouth three times daily oxybutynin (DITROPAN) 5 mg tablet Take 1 tablet by mouth three times daily. 90 tablet 5 02/18/2017 12/20/2022 Discontinued Comment on above: Take 1 tablet by rahel three times daily. Paxil (6 sources) Serotonin Reuptake Inhibitor Start: 07-28-20 Paxil Refills(s) 0 Start Date: 07/28/13 Status: Ordered phentermine hydrochloride 37.5 mg oral tablet (3 sources) Sympathomimetic Amine Anorectic Start: 07-29-20 take 1 tablet by mouth once daily phentermine 37.5 mg Tab 37.5 mg = 1 tab(s), Oral, Daily, # 30 tab(s), Refills(s) 0, Pharmacy: [facility]/pharmacy #[id number], 180, cm, 07/29/24 8:33:00 EDT, Height/Length Dosing, 106.2, kg, 07/29/24 8:33:00 EDT, Weight Dosing Start Date: 07/29/24 Status: Ordered Start: 05-25-2024 take 1 tablet by rahel th once daily phentermine 37.5 mg Tab 37.5 mg = 1 tab(s), Oral, Daily, # 30 tab(s), Refills(s) 0, Pharmacy: [id number], 180, cm, 05/25/24 10:36:00 EDT, Height/Length Dosing, 108, kg, 05/25/24 10:36:00 EDT, Weight Dosing Start Date: 05/25/24 Status: Ordered Start: 08-12-2023 take 1 tablet by rahel th once daily phentermine 37.5 mg Tab 37.5 mg = 1 tab(s), Oral, Daily, # 30 tab(s), Refills(s) 0, Pharmacy: [facility], 177, cm, 08/12/23 11:53:00 EDT, Height/Length Dosing, 109.9, kg, 08/12/23 11:53:00 EDT, Weight Dosing Start Date: 08/12/23 Status: Ordered sulfamethoxazole 800 mg / trimethoprim 160 mg oral tablet (1 source) Dihydrofolate Reductase Inhibitor Antibacterial, Sulfonamide Antimicrobial Start: 07-29-2024 End: 08-05-2024 sulfamethoxazole-trimethopri m 800 mg-160 mg Tab 1 tab(s), Oral, BID for 7 day(s), 14 tab(s), Refill(s) 0, [facility]/pharmacy #[id number], 180, cm, 07/29/24 8:33:00 EDT, Height/Length [...] BID, # 20 tab(s), Refills(s) 0, Pharmacy: [facility]/pharmacy #[id number], 178, cm, 03/17/24 12:53:00 EDT, Height/Length Dosing, 106.8, kg, 03/17/24 12:53:00 EDT, Weight Dosing Start Date: 03/19/24 Status: Ordered vibegron 75 MG Oral Tablet [Gemtesa] (5 sources) Start: 06-01-2024 take 1 tablet by mouth once daily Gemtesa 75 mg oral tablet 75 mg = 1 tab(s), Oral, Daily, # 90 tab(s), Refills(s) 3, [id number], 180, cm, 06/01/24 14:27:00 EDT, Height/Length Dosing, 103, kg, 06/01/24 14:27:00 EDT, Weight Dosing Start Date: 06/01/24 Status: Ordered Start: 03-23-2024 take 1 tablet by rahel th once daily Gemtesa 75 mg oral tablet 75 mg = 1 tab(s), Oral, Daily, # 30 tab(s), Refills(s) 6, [id number], 180, cm, 03/23/24 14:37:00 EDT, Height/Length Dosing, 103.6, kg, 03/23/24 14:37:00 EDT, Weight Dosing Start Date: 03/23/24 Status: Ordered Vitamin B-12 1000 mcg oral tablet (8 sources) Start: 07-24-2023 take 1 tablet by mouth once daily Vitamin B-12 1000 mcg oral tablet 1,000 mcg = 1 tab(s), Oral, Daily, # 30 tab(s), Refills(s) 5, [id number], 177, cm, 07/22/23 13:10:00 EDT, Height/Length Dosing, 102, kg, 07/22/23 13:10:00 EDT, Weight Dosing Start Date: 07/24/23 Status: Ordered Start: 06-24-2023 take 1 tablet by rahel th once daily Vitamin B-12 1000 mcg oral tablet 1,000 mcg = 1 tab(s), Oral, Daily, # 30 tab(s), Refills(s) 0, Pharmacy: [facility]/pharmacy #[id number], 176.8, cm, 06/24/23 11:25:00 EDT, Height/Length Dosing, 106.5, kg, 06/24/23 11:25:00 EDT, Weight Dosing Start Date: 8/1/23 Status: Ordered Completed/Discontinued Medications Medication Drug Class(es) Dates Sig (Normalized) Sig (Original) acetaminophen 325 mg / HYDROcodone bitartrate 5 mg oral tablet (3 sources) Opioid Agonist End: 12-22-2024 HYDROcodone-aceta minophen ([place]) 5-325 MG tablet every 6 (six) hours. [...] Ordered Comment on above: Injected every 3 mon ths for spasticity as directed. citalopram 20 mg oral tablet (15 sources) Serotonin Reuptake Inhibitor Start: 09-21-20 End: 12-22-19 take 1 tablet by mouth once daily citalopram (CELEXA) 20 mg tablet Indications: Mood disturbance Take 1 tablet by mouth once daily. 90 tablet 3 09/21/2019 09/03/2023 Discontinued (Discontinued by another Health Care Provider) Comment on above: Take 1 tablet by rahel th once daily. cyclobenzaprine hydrochloride 10 mg oral tablet (15 sources) Muscle Relaxant Start: 09-21-20 End: 09-03-20 23 take 1 tablet by mouth every eight [...] 1 tablet by rahel th three times daily as needed for Muscle Spasm. iv contrast (will be provided with radiology test) (2 sources) Start: End: inject 1 dose intravenously once iv [...] of brain] Onset: 04-16-2024 02-04-2014 Chronic Other aftercare (2 sources) Surgical follow-up; Translations: [Encounter for follow-up examination after completed treatment for conditions other than malignant neoplasm] 01-12-2025 Episodic Other complications of (15 sources) Advanced maternal [...] Name Value Interpretation Reference Range Facil ity Ambulatory Visit Summaryon 0 01-24-2025 Ambulatory Visit Summary Ambulatory Visit Summary MONIKA HASKINS :1970 Visit Date:01/24/2025 Ambulatory Visit Instructions Your Diagnosis Skin infection Sinusitis Your Care Team Attending Physician - Ara Michelle Primary Care Physician - Ara Michelle This Is Your Medications List APAP/ASA/caffeine (Excedrin Extra Strength) acetaminophen (Tylenol) amoxicillin-clavulana te (Augmentin 875 mg oral tablet) baclofen buPROPion (Wellbutrin XL 150 mg/24 hours Tab-ER) cyanocobalamin (Vitamin B-12 1000 mcg oral tablet) dextromethorphan/guai fenesin/pseudoephedri ne (Capmist DM 15 mg-400 mg-60 mg oral tablet) estradiol (estradiol 1 mg Tab) onabotulinumtoxinA (Botox 100 units injection) phentermine (phentermine 37.5 mg Tab) predniSONE (predniSONE 10 mg Tab) topiramate (topiramate 50 mg Tab) valacyclovir (Valtrex 1 g Tab) [...] 10:20 AM EDT With: Ara Michelle Where: [address] [address]- Friday 11:00 AM EDT With: Where: [address] [address]- Medications What How Much When Why Instructions New amoxicillin-clavulana te (Augmentin 875 mg oral tablet) 1 Tablets By Mouth Every 12 hours Skin infection Sinusitis Duration: 10 Days Pickup at [facility]/pharmacy #[id number] New predniSONE (predniSONE 10 mg Tab) 1 Dose Separtor By Mouth As Directed Skin infection Sinusitis Take 4 tabs by mouth daily x3 days, 3 tabs daily x3 days, 2 tabs daily x3 days, then 1 tab daily x3 days. Pickup at [facility]/pharmacy #[id number] Unchanged acetaminophen (Tylenol) 650 Milligram By Mouth As needed for as needed for pain Unchanged APAP/ ASA/ caffeine (Excedrin Extra Strength) 2 Tablets By Mouth Every 6 hours as needed for Headache Unchanged baclofen 10 Milligram By Mouth 2 times a day Oral, 0 Refill(s) Unchanged buPROPion (Wellbutrin XL 150 mg/ 24 hours Tab-ER) 1 Tablets By Mouth Every 24 hours Encounter for weight management Depression Non-smoker BMI 32.0-32.9,adult Exogenous obesity Unchanged cyanocobalamin (Vitamin B-12 1000 mcg oral [...] Mouth Every day Encounter for weight management bmi 31.17 Unchanged topiramate (topiramate 50 mg Tab) 1 Tablets By Mouth 2 times a day Unchanged valacyclovir (Valtrex 1 g Tab) 1 Tablets By Mouth 2 times a day Unchanged vibegron (Gemtesa 75 mg oral tablet) 1 Tablets By Mouth Every day Overactive bladder Enuresis Unchanged vibegron (Gemtesa 75 mg oral tablet) 1 Tablets By Mouth Every day Overactive bladder Pharmacy Information [id number]: [address], [place] [id number] [phone] Allergies Bee Stings (Swelling) morphine (Rash) Problems [...] 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 Biopsy of brain tissue tumor Brain tumor Cholecystectomy CS - section Gestational diabetes Gestational diabetes mellitus, class A>2< Incontinence without sensory awareness Nocturia Nocturnal enuresis (more content not included)... Normal [facility] Family Medicine Office/Clini c Noteon 01-24-2025 Family Medicine Office/Clinic Note Family Medicine Office/Clinic Note HPI Staff This visit was conducted via two-way, real-time interactive video communications by Ara Michelle from my office using Oink. The patient was located at their home, located at [id number] [place] [phone], with _ in attendance. A signed authorization for treatment has been obtained via our standard authorization packet or by verbal consent by the patient or their legal group sales representative. The patient's identity and location in [place] has been verified by our office staff. If it is determined that the patient should be evaluated in the clinic, the patient will be directed to the appropriate clinic or venue. A limited physical exam will be conducted reviewing those areas of the body visible via telecommunications. Total time spent preparing the chart, conducting the encounter with the patient and family, and time spent documenting, reviewing, and ordering tests was _ minutes. All records and visits comply with HIPAA standards. Patient or Guardian reported vitals: Temp: _ Wt: _ Ht: _ BP: _ HR: _ Sp02: _ 2 days ago outer left ear swelling looks like cauliflower ear and now has pain inner left ear. Yesterday pt had a long day driving all day had a bad taste in her mouth and woke up this morning with swelling to left side of face left ear is worse and now left eye has a drainage and was crusted over. History of Present Illness pt presents via video visit with left ear redness and swelling left eye is swollen and oozing yellow drainage Physical Exam on video left ear is red, as well as left eye is swollen and red, left side of face is also swollen Assessment/Plan 1. Skin infection (L08.9: Local infection of the skin and subcutaneous tissue, unspecified) not sure if she was bitten by something or its a major left sided sinus infection. will treat with augmentin and steroid dose pack. Ordered: amoxicillin-clavulana te, = 1 tab(s), Oral, q12hr, X 10 day(s), # 20 tab(s), Refills(s) 0, Pharmacy: [facility]/pharmacy #[id number], 180, cm, 12/14/24 10:04:00 EST, Height/Length Dosing, 101, kg, 12/14/24 10:04:00 EST, Weight Dosing predniSONE, 0 = 1 -, Oral, As Directed, Take 4 tabs by mouth daily x3 days, 3 tabs daily x3 days, 2 tabs daily x3 days, then 1 tab daily x3 days., # 30 tab(s), Refills(s) 0, [id number], 180, cm, 12/14/24 10:04:00 EST, Height/Length Dosing, 101,... 2. Sinusitis (J32.9: Chronic sinusitis, unspecified) see above Ordered: amoxicillin-clavulana te, = 1 tab(s), Oral, q12hr, X 10 day(s), # 20 tab(s), Refills(s) 0, [id number], 180, cm, 12/14/24 10:04:00 EST, Height/Length Dosing, 101, kg, 12/14/24 10:04:00 EST, Weight Dosing predniSONE, 0 = 1 -, Oral, As Directed, Take 4 tabs by mouth daily x3 days, 3 tabs daily x3 days, 2 tabs daily x3 days, then 1 tab daily x3 days., # 30 tab(s), Refills(s) 0, [id number], 180, cm, 12/14/24 10:04:00 EST, Height/Length Dosing, 101,... 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 Medications Augmentin 875 mg oral tablet, 1 tab(s), Oral, q12hr baclofen, 10 mg, Oral, BID Botox 100 [...] Tab, 37.5 mg= 1 tab(s), Oral, Daily pr (more content not included)... Normal [facility] Comment on above: Result Comment: Elec tronically Signed By: Guilherme WILL, Ara Cote\.br\Date and Time Signed: 01/24/25 11:54 EST ALL CBC WITH AUTO DIFFon BASOPHILS ABSOLUTE AUTO 0.1 [facility] Basophils/100 WBC (Bld) 0.8 % 0.2 - 2.0 % [facility] Eosinophils/100 WBC (Bld) 2.4 % 0.9 - 7.0 % [facility] Erythrocyte distribution width (RBC) [Ratio] 12.7 % 11.0 - 15.0 % [facility] Hematocrit (Bld) [Volume fraction] 43.8 % 36.0 - 48.0 % [facility] Hemoglobin (Bld) [Mass/Vol] 13.9 g/dL 12.0 - 16.0 g/dL [facility] IMMATURE GRANULOCYTES ABS AUTO 0 [facility] Immature granulocytes/100 WBC (Bld) 0 % 0.0 - 0.5 % [facility] LYMPHOCYTES ABSOLUTE AUTO 1.8 [facility] Lymphocytes/100 WBC (Bld) 31 % 20.5 - 60.0 % [facility] MCH (RBC) [Entitic mass] 28.1 pg 26.7 - 34.0 pg [facility] MCHC (RBC) [Mass/Vol] 31.7 g/dL 29.9 - 35.2 g/dL [facility] MCV (RBC) [Entitic vol] 88.5 fL 81.0 - 99.0 fL [facility] MONOCYTES ABSOLUTE AUTO 0.6 [facility] Monocytes/100 WBC (Bld) 9.6 % 1.7 - 12.0 % [facility] NEUTROPHILS ABSOLUTE AUTO 3.3 [facility] Neutrophils/100 WBC (Bld) 56.2 % 43.0 - 75.0 % [facility] Platelet mean volume (Bld) [Entitic vol] 11.8 fL 9.5 - 13.5 fL [facility] TBH EO # 0.1 [facility] PLT 281 [facility] RBC 4.95 [facility] WBC 5.9 [facility] Sanjiv 12-31-2024 L - -------- Specimen: [id number] Received: 01/03/25 Status: VIRGILIO Raymond Num: [id number] Spec Type: Surgical Subm Dr: Carter Agosto Tissues: A Endometrial Polyp (ENDOMETRIAL POLYP) Procedures: CATHERINE, Gross/Salo L4 -------- Age/ Patient Sex Location Account Attending Physician -------- Monika Haskins 54/F LABELL [id number] Carter Agosto -------- SPEC NUM: [id number] RECD: 01/03/25 STATUS: VIRGILIO RAYMOND NUM: [id number] ELIAN: 12/31/[address] [facility] [address]: Carter Agosto ENTERED: 01/03/[address]: Saulo,Lab SPEC TYPE: Surgical DEPT: JAMAAL JULIEN ORDERED: HE/4, Gross/Micro L4 ORDERED: HE/4, Gross/Micro L4 Pathological Diagnosis Endometrium, polypectomy: - Fragments of endometrial polyp and myometrium with adenomyosis. - No evidence of hyperplasia or malignancy identified. Clinical Information Postmenopausal bleeding, uterine mass Gross Description Received in formalin labeled with the patient's name, date of and endometrial polyp are multiple fragments of rucker tissue measuring 2.9 x 2.5 x 0.6 cm in aggregate. The specimen is entirely submitted in A1?A2. TW Microscopic Description Microscopic examination is performed. CPT Codes 35588 -------- -------- Specimen: [id number] Received: 01/03/25 Status: VIRGILIO Raymond Num: [id number] Spec Type: Surgical Subm Dr: Carter Agosto Tissues: A Endometrial Polyp (ENDOMETRIAL POLYP) Procedures: ASTER/Jodi, Gross/Salo L4 -------- Patient: Monika Haskins [id number] (Continued) -------- Signed (signature on file) Cristóbal Nye MD 01/04/25 1105 Normal [facility] ECG 12-LEADon 12-28-2024 [place] [address] Electrocardiograph Report Signed Patient: MONIKA HASKINS MR#: [id number] : 1970 Acct:[id number] Age/Sex: 54 / F ADM Date: 12/28/24 Loc: [facility] Attending Dr: Carter Agosto D.O. Ordering Physician: Carter Agosto D.O. Date of Service: 12/28/24 Procedure(s): ECG 12 lead Accession Number(s): [id number] cc: 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 Signed By: 12/28/241941 DD/ 7 TD/TT: Cloth Worker: [facility] Radiology, Radiologist, MD - 12/28/2024 [place] [address] Electrocardiograph Report Signed Patient: MONIKA HASKINS MR#: [id number] : 1970 Acct:[id number] Age/Sex: 54 / F ADM Date: 12/28/24 Loc: [facility] Attending Dr: Carter Agosto D.O. Ordering Physician: Carter Agosto D.O. Date of Service: 12/28/24 Procedure(s): ECG 12 lead Accession Number(s): [id number] cc: 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 Signed By: 12/28/241941 DD/ 7 TD/TT: Cloth Worker: [facility] Radiology Study observation (narrative) [facility] ECG 12-LEADOrdered By: Radio logist Radiology on 12-28-2024 [facility] Healthcare Work Phone: ALL LDHon 12-23-2024 LDH [Catalytic activity/Vol] 183 U/L 81 - 234 U/L [facility] CNOVon 12-15-2024 CNOV Office Visit (REHAV) MONIKA HASKINS ([id number]) 1970 F Date Time Provider Department 12/15/24 1:00 PM PATRICK BUSTAMANTE REHANITHA During your visit today, we recorded the following information about you: Pulse Blood pressure 90/minute 122/79 Patrick Bustamante MD 12/14/2024 12:10 PM Signed You have received botulinum toxin injections today. The skin around the site of injections should be monitored for a couple of days. If redness or swelling occur, the skin should be examined by a health personal care aid to rule out infection. If you experience pain in the muscles injected over the next few days, you can take Tylenol to control the pain (unless contra-indicated). Please call our office at [phone] with any questions or concerns. MD Dianna [...] risks, be (more content not included)... Normal [facility] Office/Clini c Noteon 11-09-2024 Family Medicine Office/Clinic [...] Daily, # 30 tab(s), Refills(s) 0, [id number], 180, cm, 11/09/24 10:37:00 EST, Height/Length Dosing, 102.2, kg, 11/09/24 10:37:00 EST, Weight Dosing phentermine, 37.5 mg = 1 tab(s), Oral, Daily, # 30 tab(s), Refills(s) 0, [id number], 180, cm, 10/12/24 10:29:00 EST, Height/Length [...] Heart diseas (more content not included)... Normal [facility] Comment on above: Result Comment: Elec [...] 10:20 AM EST With: Ara Michelle Where: [address] [address] 2024 9:30 AM EST With: Where: [address] [address]- Medications What How Much When Why Instructions [...] choosing us for your care. Normal [facility] Family Medicine Office/Clini c Noteon 10-12-2024 [...] q24hr, # 30 tab(s), Refills(s) 2, [id number], 180, cm, 10/12/24 10:29:00 EST, Height/Length Dosing, 104.6, kg, 10/12/24 10:29:00 EST, Weight Dosing phentermine, 37.5 mg = 1 tab(s), Oral, Daily, # 30 tab(s), Refills(s) 0, [facility], 180, cm, 09/14/24 10:06:00 EDT, Height/Length Dosing, 107.8, kg, 09/14/24 10:06:00 EDT, Weight Dosing phentermine, 37.5 mg = 1 tab(s), Oral, Daily, # 30 tab(s), Refills(s) 0, Pharmacy: [facility] #6177, 180, cm, 10/12/24 10:29:00 EST, Height/Length [...] q24hr, # 30 tab(s), Refills(s) 2, [facility], 180, cm, 10/12/24 10:29:00 EST, Height/Length Dosing, 104.6, kg, 10/12/24 10:29:00 EST, Weight Dosing 3. Non-smoker (Z78.9: Other specified health status) continue not smoking Ordered: buPROPion, 150 mg = 1 tab(s), Oral, q24hr, # 30 tab(s), Refills(s) 2, [facility], 180, cm, 10/12/24 10:29:00 EST, Height/Length Dosing, 104.6, kg, 10/12/24 10:29:00 EST, Weight Dosing topiramate, 25 mg = 1 tab(s), Oral, Daily, # 90 tab(s), Refills(s) 1, [facility], 180, cm, 09/14/24 10:06:00 EDT, Height/Length Dosing, 107.8, kg, 09/14/24 10:06:00 EDT, Weight Dosing 4. BMI 32.0-32.9,adult (Z68.32: Body mass index [BMI] 32.0-32.9, adult) BMI education. pt is down 7 more pounds Ordered: buPROPion, 150 mg = 1 tab(s), Oral, q24hr, # 30 tab(s), Refills(s) 2, [facility], 180, cm, 10/12/24 10:29:00 EST, Height/Length Dosing, 104.6, kg, 10/12/24 10:29:00 EST, Weight Dosing 5. Exogenous obesity (E66.09: Other obesity due to excess calories) see above Ordered: buPROPion, 150 mg = 1 tab(s), Oral, q24hr, # 30 tab(s), Refills(s) 2, [facility], 180, cm, 10/12/24 10:29:00 EST, Height/Length Dosing, 104.6, kg, 10/12/24 10:29:00 EST, Weight Dosing Orders: topiramate, 50 mg = 1 tab(s), Oral, BID, # 60 tab(s), Refills(s) 2, [facility], 180, cm, 10/12/24 10:29:00 EST, Height/Length [...] wall (11/10/2018), (more content not included)... Normal [facility] Comment on above: Result Comment: Elec [...] Daily, # 30 tab(s), Refills(s) 0, Pharmacy: [facility]/pharmacy #6177, 180, cm, 09/14/24 10:06:00 EDT, Height/Length Dosing, 107.8, kg, 09/14/24 10:06:00 EDT, Weight Dosing phentermine, 37.5 mg = 1 tab(s), Oral, Daily, # 30 tab(s), Refills(s) 0, Pharmacy: [facility]/pharmacy #6177, 180, cm, 07/29/24 8:33:00 EDT, Height/Length Dosing, 106.2, kg, 07/29/24 8:33:00 EDT, Weight Dosing 2. BMI 33.0-33.9,adult (Z68.33: Body mass index [BMI] 33.0-33.9, adult) BMI education given Ordered: topiramate, 25 mg = 1 tab(s), Oral, Daily, # 90 tab(s), Refills(s) 1, Pharmacy: [facility]/pharmacy #6177, 180, cm, 09/14/24 10:06:00 EDT, Height/Length Dosing, 107.8, kg, 09/14/24 10:06:00 EDT, Weight Dosing 3. Non-smoker (Z78.9: Other specified health status) continue not smoking Ordered: topiramate, 25 mg = 1 tab(s), Oral, Daily, # 90 tab(s), Refills(s) 1, Pharmacy: [facility]/pharmacy #6177, 180, cm, 09/14/24 10:06:00 EDT, Height/Length Dosing, 107.8, kg, 09/14/24 10:06:00 EDT, Weight Dosing Orders: estradiol, 1 mg = 1 tab(s), Oral, Daily, # 90 tab(s), Refills(s) 1, Pharmacy: [facility]/pharmacy #6177, 180, cm, 09/14/24 10:06:00 EDT, Height/Length [...] History Alco (more content not included)... Normal [facility] Comment on above: Result Comment: Elec tronically Signed By: Ara Michelle.br\Date and Time Signed: 09/14/24 10:37 EDT Darling 2024 CNOV Office Visit (REHAV) MONIKA HASKINS ([id number]) 1970 F Date Time Provider Department 09/08/24 11:15 AM PATRICK BUSTAMANTE REHAV During your visit today, we recorded the following information about you: Pulse Blood pressure 103/minute 130/83 Patrick Bustamante MD 09/07/2024 10:17 AM Signed You have received botulinum toxin injections today. The skin around the site of injections should be monitored for a couple of days. If redness or swelling occur, the skin should be examined by a health personal care aid to rule out infection. If you experience pain in the muscles injected over the next few days, you can take Tylenol to control the pain (unless contra-indicated). Please call our office at [phone] with any questions or concerns. MD Dianna [...] - 10/25 (more content not included)... Normal [facility] C Urineon 07-31-2024 Bacteria identified Cx Nom (U) Microbiology PROCEDURE: Urine Culture [R1] SOURCE: U CleanCatch BODY SITE: COLLECTED DATE/TIME: 07/29/2024 08:54 EDT RECEIVED DATE/TIME: 07/29/2024 18:41 EDT START DATE/TIME: 07/29/2024 18:41 EDT FREE TEXT SOURCE: Ara Michelle Jodi L FINAL REPORTS Final Report [] Verified Date/Time: [...] Locations R1: This test was performed at: [facility], [address] [place] [address], [facility]- , , [facility] Comment on above: Performed By: #### 2 [id number] #### [facility] [address] [place] [address] Medicine Office/Clini c Noteon 07-29-2024 Family Medicine [...] Daily, # 30 tab(s), Refills(s) 0, Pharmacy: [facility] #6177, 180, cm, 06/01/24 14:27:00 EDT, Height/Length Dosing, 103, kg, 06/01/24 14:27:00 EDT, Weight Dosing phentermine, 37.5 mg = 1 tab(s), Oral, Daily, # 30 tab(s), Refills(s) 0, Pharmacy: [facility] #6177, 180, cm, 07/29/24 8:33:00 EDT, Height/Length Dosing, 106.2, kg, 07/29/24 8:33:00 EDT, Weight Dosing Urine Culture Urnls Dip Stick Non-Auto w/o Micrscpy POC 82089 2. Dysuria (R30.0: Dysuria) u/a+ will send for culture. bactrim sent Ordered: Urine Culture 3. Non-smoker (Z78.9: Other specified health status) continue not smoking Ordered: Urine Culture Urnls Dip Stick Non-Auto w/o Micrscpy POC 62200 4. BMI 32.0-32.9,adult (Z68.32: Body mass index [BMI] 32.0-32.9, adult) BMI eduction Ordered: Urine Culture Urnls Dip Stick Non-Auto w/o Micrscpy POC 92195 5. Class 1 obesity due to excess calories in adult (E66.09: Other obesity due to excess calories) see above Ordered: Urine Culture Urnls Dip Stick Non-Auto w/o Micrscpy POC 14328 Orders: sulfamethoxazole-trim ethoprim, 1 tab(s), Oral, BID for 7 day(s), 14 tab(s), Refill(s) 0, [facility]/pharmacy #[id number], 180, cm, 07/29/24 8:33:00 EDT, Height/Length [...] (Rash) S (more content not included)... Normal [facility] Comment on above: Result Comment: Elec trobretally Signed By: Ara Michelle\.mark\Date and Time Signed: 07/29/24 10:20 EDT Reminderson 07-23-2024 Reminders Reminders From: Yaz Childress To: EU - Recallmarsha Blas; Sent: 03/24/2024 09:11:40 EDT Show up: 06/24/2024 09:11:00 EDT Subject: Botox Due Date/Time: 07/19/2024 09:11:00 EDT Reminder/Recall Pt needs Botox Jul /Aug Patient seen in May 2024, will wait on botox. Currently getting for her arm. New med started for bladder.LG Normal [facility] Reminderson 06-01-2024 Reminders Reminders From: Rosa Zimmer To: EU - Administrative; Sent: 06/01/2024 14:42:40 EDT Show up: 03/02/2025 14:42:00 EDT Subject: Appointment call back Due Date/Time: 06/01/2025 14:42:00 EDT Reminder/Recall Patient is a one year follow up with Manpreet Goldstein [facility] Urology Office/Clinic Noteon 06-01-2024 Urology Office/Clinic [...] with voice recognition artificial intelligence software, specifically [employer], Smart [employer] and or [email or web address]. Substitutions may have occurred due to the [...] Daily, # 90 tab(s), Refills(s) 3, Pharmacy: [facility]/pharmacy #6177, 180, cm, 06/01/24 14:27:00 EDT, Height/Length Dosing, 103, kg, 06/01/24 14:27:00 EDT, Weight Dosing 2. Enuresis (R32: Unspecified urinary incontinence) See #1 UA today with trace intact blood, no signs of infection. Patient denies any episode of gross hematuria or urinary infection since prior office visit. Ordered: vibegron, 75 mg = 1 tab(s), Oral, Daily, # 90 tab(s), Refills(s) 3, Pharmacy: [facility]/pharmacy #6177, 180, cm, 06/01/24 14:27:00 EDT, Height/Length Dosing, 103, kg, 06/01/24 14:27:00 EDT, Weight Dosing Urnls Dip Stick Auto w/o Microscopy POC 57945 Follow-up With When Contact Information DIANA Case APRN, Elo X, FAM, URL Additional Instructions: 1 [...] injection Capmist (more content not included)... Normal [facility] Comment on above: Result Comment: Elec tronically Signed By: DIAAN Case APRN, Aurora X\.br\Date and Time Signed: 06/01/24 15:03 AGUSTÍNT Darling 05-26-2024 CNOV Office Visit (REHAV) MONIKA HASKINS ([id number]) 1970 F Date Time Provider Department 05/26/24 [...] skin should be examined by a health personal care aid to rule out infection. If you experience pain in the muscles injected over the next few days, you can take Tylenol to control the pain (unless contra-indicated). Please call our office at [phone] with any questions or concerns. MD Dianna [...] were expla (more content not included)... Normal [facility] Ambulatory Visit Summaryon 0 05-25-2024 Ambulatory [...] APRN, Elo Michel Where: [facility] Invalid Interpretation Code [address] [place] [address]- \.br\ 2024 9:30 AM EST \.br\ With:\.br\ Where: [facility] Family Medicine Office/Clini c Noteon 05-25-2024 Family [...] to afford it. will send adipex to [facility] medication agreement signed. RTC 4 weeks Ordered: phentermine, 37.5 mg = 1 tab(s), Oral, Daily, # 30 tab(s), Refills(s) 0, Pharmacy: [facility] #72, 180, cm, 05/25/24 10:36:00 EDT, Height/Length [...] TPV40 influe (more content not included)... 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 Patient called to enquire if we have received the [place] Form faxed to us minutes ago, I checked and informed her yes. She requested it to be filled and faxed back over today. The fax was forwarded over to the [facility] nurses. 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 Address: [address] [place] [address] Performed By: #### 5 7021-8 ####[facility] [id number] [place] [address] [place] Basophils/100 WBC (Bld) 0.5 % Normal [facility] Comment on above: Order Comment: Speci men Type: BLOOD SPECIMENOrdering Facility: [facility] Address: [address] [place] [address] Performed By: #### 5 7021-8 ####[facility] [id number] [place] [address] [place] Differential cell count method Nom (Bld) Auto Normal [facility] Comment on above: Order Comment: Speci men Type: BLOOD SPECIMENOrdering Facility: [facility] Address: [address] [place] [address] Performed By: #### 5 7021-8 ####[facility] [id number] [place] [address] [place] Eosinophils (Bld) [#/Vol] 0.14 10*3/uL Normal <0.46 [facility] Comment on above: Order Comment: Speci men Type: BLOOD SPECIMENOrdering Facility: [facility] Address: [address] [place] [address] Performed By: #### 5 7021-8 ####[facility] [id number] [place] [address] [place] Eosinophils/100 WBC (Bld) 1.8 % Normal [facility] Comment on above: Order Comment: Speci men Type: BLOOD SPECIMENOrdering Facility: [facility] Address: [address] [place] [address] Performed By: #### 5 7021-8 ####[facility] [id number] [place] [address] [place] Erythrocyte distribution width (RBC) [Ratio] 13.1 % Normal 11.5-15.0 [facility] Comment on above: Order Comment: Speci men Type: BLOOD SPECIMENOrdering Facility: [facility] Address: [address] [place] [address] Performed By: #### 5 7021-8 ####[facility] [id number] [place] [address] [place] Hematocrit (Bld) [Volume fraction] 41.9 % Normal 36.0-46.0 [facility] Comment on above: Order Comment: Speci men Type: BLOOD SPECIMENOrdering Facility: [facility] Address: [address] [place] [address] Performed By: #### 5 7021-8 ####[facility] [id number] [place] [address] [place] Hemoglobin (Bld) [Mass/Vol] 13.9 g/dL Normal 11.5-15.5 [facility] Comment on above: Order Comment: Speci men Type: BLOOD SPECIMENOrdering Facility: [facility] Address: [address] [place] [address] Performed By: #### 5 7021-8 ####[facility] [id number] [place] [address] [place] Immature granulocytes (Bld) [#/Vol] 10*3/uL Normal <0.10 [facility] Comment on above: Order Comment: Speci men Type: BLOOD SPECIMENOrdering Facility: [facility] Address: [address] [place] [address] Performed By: #### 5 7021-8 ####[facility] [id number] [address] [id number] [address] [place] Immature granulocytes/100 WBC (Bld) 0.3 % Normal [facility] Comment on above: Order Comment: Speci men Type: BLOOD SPECIMENOrdering Facility: [facility] Address: [address] [place] [address] Performed By: #### 5 7021-8 ####[facility] [id number] [place] [address] [place] Lymphocytes (Bld) [#/Vol] 1.77 10*3/uL Normal 1.00-4.00 [facility] Comment on above: Order Comment: Speci men Type: BLOOD SPECIMENOrdering Facility: [facility] Address: [address] [place] [address] Performed By: #### 5 7021-8 ####[facility] [id number] [address] [place] Lymphocytes/100 WBC (Bld) 22.2 % Normal [facility] Comment on above: Order Comment: Speci men Type: BLOOD SPECIMENOrdering Facility: [facility] Address: [address] [place] [address] Performed By: #### 5 7021-8 ####[facility] [id number] [place] [address] [place] MCH (RBC) [Entitic mass] 28.5 pg Normal 26.0-34.0 [facility] Comment on above: Order Comment: Speci men Type: BLOOD SPECIMENOrdering Facility: [facility] Address: [address] [place] [address] Performed By: #### 5 7021-8 ####[facility] [id number] [place] [address] [place] MCHC (RBC) [Mass/Vol] 33.2 g/dL Normal 30.5-36.0 [facility] Comment on above: Order Comment: Speci men Type: BLOOD SPECIMENOrdering Facility: [facility] Address: [address] [place] [address] Performed By: #### 5 7021-8 ####[facility] [id number] [place] [address] [place] MCV (RBC) [Entitic vol] 86.0 fL Normal 80.0-100.0 [facility] Comment on above: Order Comment: Speci men Type: BLOOD SPECIMENOrdering Facility: [facility] Address: [address] [place] [address] Performed By: #### 5 7021-8 ####[facility] [id number] [place] [address] [place] Monocytes (Bld) [#/Vol] 0.61 10*3/uL Normal <0.87 [facility] Comment on above: Order Comment: Speci men Type: BLOOD SPECIMENOrdering Facility: [facility] Address: [address] [place] [address] Performed By: #### 5 7021-8 ####[facility] [id number] [place] [address] [place] Monocytes/100 WBC (Bld) 7.7 % Normal [facility] Comment on above: Order Comment: Speci men Type: BLOOD SPECIMENOrdering Facility: [facility] Address: [address] [place] [address] Performed By: #### 5 7021-8 ####[facility] [id number] [place] [address] [place] Neutrophils (Bld) [#/Vol] 5.38 10*3/uL Normal 1.45-7.50 [facility] Comment on above: Order Comment: Speci men Type: BLOOD SPECIMENOrdering Facility: [facility] Address: [address] [place] [address] Performed By: #### 5 7021-8 ####[facility] [id number] [place] [address] [place] Neutrophils/100 WBC (Bld) 67.5 % Normal [facility] Comment on above: Order Comment: Speci men Type: BLOOD SPECIMENOrdering Facility: [facility] Address: [address] [place] [address] Performed By: #### 5 7021-8 ####[facility] [id number] [place] [address] [place] Nucleated RBC (Bld) [#/Vol] 10*3/uL Normal <0.01 [facility] Comment on above: Order Comment: Speci men Type: BLOOD SPECIMENOrdering Facility: [facility] Address: [address] [place] [address] Performed By: #### 5 7021-8 ####[facility] [id number] [place] [address] [place] Nucleated RBC/100 WBC (Bld) [Ratio] 0.0 /100 WBC Normal [facility] Comment on above: Order Comment: Speci men Type: BLOOD SPECIMENOrdering Facility: [facility] Address: [address] [place] [address] Performed By: #### 5 7021-8 ####[facility] [id number] [place] [address] [place] Platelet mean volume (Bld) [Entitic vol] 12.3 fL Normal 9.0-12.7 [facility] Comment on above: Order Comment: Speci men Type: BLOOD SPECIMENOrdering Facility: [facility] Address: [address] [place] [address] Performed By: #### 5 7021-8 ####[facility] [id number] [place] [address] [place] Platelets (Bld) [#/Vol] 233 10*3/uL Normal 150-400 [facility] Comment on above: Order Comment: Speci men Type: BLOOD SPECIMENOrdering Facility: [facility] Address: [address] [place] [address] Performed By: #### 5 7021-8 ####[facility] [id number] [place] [address] [place] RBC (Bld) [#/Vol] 4.87 10*6/uL Normal 3.90-5.20 [facility] Comment on above: Order Comment: Speci men Type: BLOOD SPECIMENOrdering Facility: [facility] Address: [address] [place] [address] Performed By: #### 5 7021-8 ####[facility] [id number] [place] [address] [place] WBC (Bld) [#/Vol] 7.96 10*3/uL Normal 3.70-11.00 [facility] Comment on above: Order Comment: Speci men Type: BLOOD SPECIMENOrdering Facility: [facility] Address: [address] [place] [address] Performed By: #### 5 7021-8 ####[facility] [id number] [place] [address] [place] CNOVSPon 04-16-2024 CNOVS Visit (SP) Office (HEMCA4) MONIKA HASKINS ([id number]) 1970 F Date Time Provider Department 04/16/24 [...] and medical decision-making during today's encounter, 04/16/2024) [facility] Monika Haskins is a 53 year old female patient. 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 Overall she is doing well. 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 Normal [facility] Comprehensive metabolic 2000 panelon 04-16-2024 Albumin [Mass/Vol] 4.4 g/dL Normal 3.9-4.9 [facility] Comment on above: Order Comment: Speci men Type: BLOOD SPECIMENOrdering Facility: [facility] Address: [address] [place], [place] [address] [address] Performed By: #### 2 4323-8 ####[facility] [id number] [place] [address] [place] ALP [Catalytic activity/Vol] 53 U/L Normal 34-123 [facility] Comment on above: Order Comment: Speci men Type: BLOOD SPECIMENOrdering Facility: [facility] Address: [address] [place] [address] Performed By: #### 2 4323-8 ####[facility] [id number] [place] [address] [place] ALT [Catalytic activity/Vol] 8 U/L Normal 7-38 [facility] Comment on above: Order Comment: Speci men Type: BLOOD SPECIMENOrdering Facility: [facility] Address: [address] [place] [address] Performed By: #### 2 4323-8 ####[facility] [id number] [place] [address] [place] Anion gap [Moles/Vol] 12 mmol/L Normal 9-18 [facility] Comment on above: Order Comment: Speci men Type: BLOOD SPECIMENOrdering Facility: [facility] Address: [address] [place] [address] Performed By: #### 2 4323-8 ####[facility] [id number] [place] [address] [place] AST [Catalytic activity/Vol] 15 U/L Normal 13-35 [facility] Comment on above: Order Comment: Speci men Type: BLOOD SPECIMENOrdering Facility: [facility] Address: [address] [place] [address] Performed By: #### 2 4323-8 ####[facility] [id number] [place] [address] [place] Bilirubin [Mass/Vol] 0.3 mg/dL Normal 0.2-1.3 [facility] Comment on above: Order Comment: Speci men Type: BLOOD SPECIMENOrdering Facility: [facility] Address: [address] [place] [address] Performed By: #### 2 4323-8 ####[facility] [id number] [place] [address] [place] Calcium [Mass/Vol] 9.3 mg/dL Normal 8.5-10.2 [facility] Comment on above: Order Comment: Speci men Type: BLOOD SPECIMENOrdering Facility: [facility] Address: [address] [place] [address] Performed By: #### 2 4323-8 ####[facility] [id number] [place] [address] [place] Chloride [Moles/Vol] 105 mmol/L Normal 97-105 [facility] Comment on above: Order Comment: Speci men Type: BLOOD SPECIMENOrdering Facility: [facility] Address: [address] [place] [address] Performed By: #### 2 4323-8 ####[facility] [id number] [place] [address] [place] CO2 [Moles/Vol] 23 mmol/L Normal 22-30 [facility] Comment on above: Order Comment: Speci men Type: BLOOD SPECIMENOrdering Facility: [facility] Address: [address] [place] [address] Performed By: #### 2 4323-8 ####[facility] [id number] [place] [address] [place] Creatinine [Mass/Vol] 0.60 mg/dL Normal 0.58-0.96 [facility] Comment on above: Order Comment: Speci men Type: BLOOD SPECIMENOrdering Facility: [facility] Address: [address] [place] [address] Performed By: #### 2 4323-8 ####[facility] [id number] [place] [address] [place] Creatinine and Glomerular filtration rate.predicted panel (S/P/Bld) 109 mL/min/1.73m??? Normal >=60 [facility] Comment on above: Order Comment: Jacqueline ha Type: BLOOD SPECIMENOrdering Facility: [facility] Address: [address] [place] [address] Result Comment: Maddie mated Glomerular Filtration Rate [...] By: #### 2 4323-8 ####[facility] [id number] [place] [address] [place] Glucose [Mass/Vol] 96 mg/dL Normal 74-99 [facility] Comment on above: Order Comment: Jacqueline ha Type: BLOOD SPECIMENOrdering Facility: [facility] Address: [address] [place] [address] Result Comment: The [place] Diabetes Association (ADA) provides guidance for cutoff [...] Standards of Medical Care in Diabetes 2016, [place] Diabetes Association. Diabetes Care. 2016.39(Suppl 1). Performed By: #### 2 4323-8 ####[facility] [id number] [place] [address] [place] Potassium [Moles/Vol] 4.1 mmol/L Normal 3.7-5.1 [facility] Comment on above: Order Comment: Speci men Type: BLOOD SPECIMENOrdering Facility: [facility] Address: [address] [place] [address] Performed By: #### 2 4323-8 ####[facility] [id number] [place] [address] [place] Protein [Mass/Vol] 7.6 g/dL Normal 6.3-8.0 [facility] Comment on above: Order Comment: Speci men Type: BLOOD SPECIMENOrdering Facility: [facility] Address: [address] [place] [address] Performed By: #### 2 4323-8 ####[facility] [id number] [place] [address] [place] Sodium [Moles/Vol] 140 mmol/L Normal 136-144 [facility] Comment on above: Order Comment: Speci men Type: BLOOD SPECIMENOrdering Facility: [facility] Address: [address] [place] [address] Performed By: #### 2 4323-8 ####[facility] [id number] [place] [address] [place] Urea nitrogen [Mass/Vol] 14 mg/dL Normal 7-21 [facility] Comment on above: Order Comment: Speci men Type: BLOOD SPECIMENOrdering Facility: [facility] Address: [address] [place] [address] Performed By: #### 2 4323-8 ####[facility] [id number] OF [place] IMMUNOFIXATION SCREEN, SERUM on 04-16-2024 MPA RESULT No M protein is identified. Normal No M protein is identified. [facility] Comment on above: Order Comment: Speci men Type: BLOOD SPECIMENOrdering Facility: [facility] Address: [address] [place] [address] Performed By: #### I [facility] ####[facility] LABCLIA [id number] [place] STAFF REVIEW (MPA) Reviewed by Dr. Edmundo Walden MD [facility] Comment on above: Order Comment: Speci men Type: BLOOD SPECIMENOrdering Facility: [facility] Address: [address] [place] [address] Performed By: #### I [facility] ####[facility] LABIA [id number] [place] [address] [place] IMMUNOGLOBULINS,IGG,IGA,IGMo n 04-16-2024 IgA [Mass/Vol] 437 mg/dL High 70-400 [facility] Comment on above: Order Comment: Speci men Type: BLOOD SPECIMENOrdering Facility: [facility] Address: [address] [place] [address] Performed By: #### S ERIMM ####[facility] LABIA [id number] [place] [address] [place] IgG [Mass/Vol] 1140 mg/dL Normal 700-1600 [facility] Comment on above: Order Comment: Speci men Type: BLOOD SPECIMENOrdering Facility: [facility] Address: [address] [place] [address] Performed By: #### S ERIMM ####[facility] LABIA [id number] [place] [address] [place] IgM [Mass/Vol] 233 mg/dL High 40-230 [facility] Comment on above: Order Comment: Speci men Type: BLOOD SPECIMENOrdering Facility: [facility] Address: [address] [place] [address] Performed By: #### S ERIMM ####[facility] LABIA [id number] [place] [address] [place] KAPPA/BREWER,FREE,SERon 2023 Immunoglobulin light chains.kappa.free (S) [Mass/Vol] 19.4 mg/L Normal 3.3-19.4 [facility] Comment on above: Order Comment: Speci men Type: BLOOD SPECIMENOrdering Facility: [facility] Address: [address] [place] [address] Result Comment: Rare ly, increased serum free light chains levels may not be detected or accurately quantified due to prozone phenomenon or in high viscosity samples using this immunoturbidimetric assay. Correlation with other laboratory results and clinical findings is recommended. The [place] Free Light Chain was performed using the Binding Site Optilite immunoturbidimetric method. Result obtained with different assay methods or kits cannot be used interchangeably. Performed By: #### K LFRS ####[facility] LABCLIA [id number] [place] [address] [place] Immunoglobulin light chains.kappa/Immuno globulin light chains.lambda (S) [Mass ratio] 1.13 Normal 0.26-1.65 [facility] Comment on above: Order Comment: Speci dilcia Type: BLOOD SPECIMENOrdering Facility: [facility] Address: [address] [place] [address] Performed By: #### K LFRS ####[facility] LABCLIA [id number] [place] [address] [place] Immunoglobulin light chains.lambda.free [Mass/Vol] 17.1 mg/L Normal 5.7-26.3 [facility] Comment on above: Order Comment: Speci dilcia Type: BLOOD SPECIMENOrdering Facility: [facility] Address: [address] [place] [address] Result Comment: Rare ly, increased serum free [...] used interchangeably. 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 Cloth Worker: PAUL Transcribe Date/Time: Apr 16 2024 3:47P Dictated by : CHICO GUALLPA MD This examination was interpreted and the report reviewed and electronically signed by: CHICO GUALLPA MD on Apr 16 2024 3:57PM [facility] DIVISION OF RADIOLOGY * * *Final Report* * * DATE OF EXAM: Apr 16 2024 3:05PM CAM 0295 - MRI BRAIN WO/W IVCON / PROCEDURE REASON: multiple diagnoses * * * * Physician Interpretation * * * * EXAMINATION: MRI BRAIN WO/W IVCON CLINICAL HISTORY: Brain tumor (HCC) AL amyloidosis (HCC) - - - Primary neoplasm/metastasis/p ostop F/U - Brain/AIRLINE COUNTER AGENT neoplasm, assess treatment response. Upon further review [...] tissues are unremarkable. DIVISION OF RADIOLOGY Provider, [facility] - 04/16/2024 * * *Final Report* * * DATE OF EXAM: Apr 16 2024 3:05PM CAM 0295 - MRI BRAIN WO/W IVCON / PROCEDURE REASON: multiple diagnoses * * * * Physician Interpretation * * * * EXAMINATION: MRI BRAIN WO/W IVCON CLINICAL HISTORY: Brain tumor (HCC) AL amyloidosis (HCC) - - - Primary neoplasm/metastasis/p ostop F/U - Brain/AIRLINE COUNTER AGENT neoplasm, assess treatment response. 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 Cloth Worker: PAUL Transcribe Date/Time: Apr 16 2024 3:47P Dictated by : CHICO GUALLPA MD This examination was interpreted and the report reviewed and electronically signed by: CHICO GUALLPA MD on Apr 16 2024 3:57PM EST [facility] Radiology Study observation (narrative) [facility] MR Brain WO and W contrast I VOrdered By: [facility] Provider on 04-16-2024 [facility] MRI BRAIN WO/W IVCONon 04-16 MRI [...] - - Primary neoplasm/metastasis/p ostop F/U - Brain/AIRLINE COUNTER AGENT neoplasm, assess treatment response. 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 Cloth Worker: [facility] Transcribe Date/Time: Apr 16 2024 3:47P Dictated by : CHICO GUALLPA MD This examination was interpreted and the report reviewed and electronically signed by: CHICO GUALLPA MD on Apr 16 2024 3:57PM EST [id number] Normal [facility] Lab Reportson 03-24-2024 Lab Reports [id number] .00TIFF Normal [facility] Ambulatory Visit Summaryon 0 03-23-2024 Ambulatory [...] 1:00 PM EDT With: DIANA Case APRN, [place] X Where: [facility] Invalid Interpretation Code [address] [place] [address]- \.br\ 2024 9:30 AM EST \.br\ With:\.br\ Where: [facility] Family Medicine [facility] Patient Educationon 03-23-20 24 Patient Education Obstetrics and Gynecology Overactive Bladder, [...] health care provider. General instructions ? Take ssbm-lff-xvrzppg and prescription medicines only as told by [...] monitor yo (more content not included)... Normal [place] Urology Office/Clinic Noteon 03-23-2024 Urology Office/Clinic [...] with voice recognition artificial intelligence software, specifically AGC, Smart Pipe and or [email or web address]. Substitutions may have occurred due to the [...] Daily, # 30 tab(s), Refills(s) 6, Pharmacy: [facility]/pharmacy #[id number], 180, cm, 03/23/24 14:37:00 EDT, Height/Length Dosing, 103.6, kg, 03/23/24 14:37:00 EDT, Weight Dosing Urnls Dip Stick Auto w/o Microscopy POC 93669 2. Enuresis (R32: Unspecified urinary incontinence) Patient experiences urge incontinence when Botox wears off. She has a hard time getting to the bathroom in a timely manner as she has to take her time getting out of bed due to her mobility issues and get her leg brace on. This typically improves with Botox. See #1. Follow-up With When Contact Information Orzech PROTECTIVE SIGNAL REPAIRER, EMPLOYEE REPRESENTATIVE-C, Elo X, FAM, URL Additional Instructions: 8 wks w/ [...] (11/10/2018), Cystourethroscop (more content not included)... Normal [facility] Comment on above: Result Comment: Elec tronically Signed By: DIANA Case APRN, Elo Michel\.br\Date and Time Signed: 03/23/24 15:15 EDT Consenton 03-17-2024 Consent [id number] .00TIFF Normal [facility] Family Medicine Office/Clini c Noteon 03-17-2024 [...] day(s), # 6 tab(s), Refills(s) 0, Pharmacy: [facility]/pharmacy #[id number], 178, cm, 03/17/24 12:53:00 EDT, Height/Length Dosing, 106.8, kg, 03/17/24 12:53:00 EDT, Weight Dosing benzonatate, 200 mg = 1 cap(s), Oral, TID, X 7 day(s), # 21 cap(s), Refills(s) 0, Pharmacy: [facility]/pharmacy #[id number], 178, cm, 03/17/24 12:53:00 EDT, Height/Length Dosing, 106.8, kg, 03/17/24 12:53:00 EDT, Weight Dosing dextromethorphan/guai fenesin/pseudoephedri ne, 1 tab(s), Oral, q4hr, 30 tab(s), Refill(s) 0, not to exceed 4 doses/day, [facility]/pharmacy #[id number], 178, cm, 03/17/24 12:53:00 EDT, Height/Length Dosing, 106.8, kg, 03/17/24 12:53:00 EDT, Weight Dosing triamcinolone, 60 mg = 1.5 mL, Injection, IntraMuscular, Once, Stop date 03/17/24 13:11:00 EDT, Routine, Start date 03/17/24 13:11:00 EDT, 03/17/24 13:11:00 EDT Influenza Type A&B POC 70165 Rapid COVID POC 18188 2. Cough (R05.9: Cough, unspecified) pt having deep painful cough Ordered: azithromycin, = 1 packet(s), Oral, As Directed, as directed on package labeling, X 5 day(s), # 6 tab(s), Refills(s) 0, [id number], 178, cm, 03/17/24 12:53:00 EDT, Height/Length Dosing, 106.8, kg, 03/17/24 12:53:00 EDT, Weight Dosing benzonatate, 200 mg = 1 cap(s), Oral, TID, X 7 day(s), # 21 cap(s), Refills(s) 0, Pharmacy: [facility]/pharmacy #[id number], 178, cm, 03/17/24 12:53:00 EDT, Height/Length Dosing, 106.8, kg, 03/17/24 12:53:00 EDT, Weight Dosing dextromethorphan/guai fenesin/pseudoephedri ne, 1 tab(s), Oral, q4hr, 30 tab(s), Refill(s) 0, not to exceed 4 doses/day, [facility]/pharmacy #6177, 178, cm, 03/17/24 12:53:00 EDT, Height/Length Dosing, 106.8, kg, 03/17/24 12:53:00 EDT, Weight Dosing triamcinolone, 60 mg = 1.5 mL, Injection, IntraMuscular, Once, Stop date 03/17/24 13:11:00 EDT, Routine, Start date 03/17/24 13:11:00 EDT, 03/17/24 13:11:00 EDT Influenza Type A&B POC 56016 Rapid COVID POC 35783 3. BMI 33.0-33.9,adult (Z68.33: Body mass index [BMI] 33.0-33.9, adult) BMI education complete Ordered: azithromycin, = 1 packet(s), Oral, As Directed, as directed on package labeling, X 5 day(s), # 6 tab(s), Refills(s) 0, Pharmacy: [facility]/pharmacy #[id number], 178, cm, 03/17/24 12:53:00 EDT, Height/Length Dosing, 106.8, kg, 03/17/24 12:53:00 EDT, Weight Dosing benzonatate, 200 mg = 1 cap(s), Oral, TID, X 7 day(s), # 21 cap(s), Refills(s) 0, [facility], 178, cm, 03/17/24 12:53:00 EDT, Height/Length Dosing, 106.8, kg, 03/17/24 12:53:00 EDT, Weight Dosing dextromethorphan/guai fenesin/pseudoephedri ne, 1 tab(s), Oral, q4hr, 30 tab(s), Refill(s) 0, not to exceed 4 doses/day, [facility], 178, cm, 03/17/24 12:53:00 EDT, Height/Length Dosing, 106.8, kg, 03/17/24 12:53:00 EDT, Weight Dosing triamcinolone, 60 mg = 1.5 mL, Injection, IntraMuscular, Once, Stop date 03/17/24 13:11:00 EDT, Routine, Start date 03/17/24 13:11:00 EDT, 03/17/24 13:11:00 EDT Influenza Type A&B POC 26709 Rapid COVID POC 20039 4. Non-smoker (Z78.9: Other specified health status) continue not smoking Ordered: azithromycin, = 1 packet(s), Oral, As Directed, as directed on package labeling, X 5 day(s), # 6 tab(s), Refills(s) 0, [facility], 178, cm, 03/17/24 12:53:00 EDT, Height/Length Dosing, 106.8, kg, 03/17/24 12:53:00 EDT, Weight Dosing benzonatate, 200 mg = 1 cap(s), Oral, TID, X 7 day(s), # 21 cap(s), Refills(s) 0, Pha (more content not included)... Normal [facility] Comment on above: Result Comment: Elec tronically Signed By: Guilherme WILL, Ara Cote\.br\Date and Time Signed: 03/17/24 13:35 EDT Retail - Clinical Noteon Retail - Clinical Note [id number] .00TIFF [facility] Ambulatory Visit Summaryon 0 02-25-2024 Ambulatory [...] 10:20 AM EDT With: Ara Michelle Where: [facility] Normal [address] [place] [address]- \.br\ Medications\.br\ What How Much When Why [...] choosing us for your care.\.br\ \.br\ [facility] Family Medicine Office/Clini c Noteon 02-25-2024 Family Medicine Office/Clinic Note HPI Staff oMnika is a 53 year old female presenting [...] qWeek, # 4 EA, Refills(s) 2, Pharmacy: [facility], 178, cm, 02/25/24 11:11:00 EDT, Height/Length Dosing, 109.8, kg, 02/25/24 11:11:00 EDT, Weight Dosing tirzepatide, See Instructions, INJECT 1 PEN SUBCUTANEOUSLY ONCE A WEEK FOR 4 WEEKS, # 4 EA, Refills(s) 0, Pharmacy: [facility]/pharmacy #[id number], 177, cm, 12/15/23 10:24:00 EST, Height/Length [...] Recorded influe (more content not included)... Normal [facility] Comment on above: Result Comment: Elec tronically Signed By: Ara Michelle\Date and Time Signed: 02/25/24 12:25 EDT CNOVon 02-18-2024 CNOV Office Visit (REHAV) MONIKA HASKINS ([id number]) 1970 F Date Time Provider Department 02/18/24 [...] skin should be examined by a health personal care aid to rule out infection. If you experience pain in the muscles injected over the next few days, you can take Tylenol to control the pain (unless contra-indicated). Please call our office at [phone] with any questions or concerns. MD Dianna [...] the inj (more content not included)... Normal [facility] Retail - Clinical Noteon Retail - Clinical Note [id number] .00TIFF Normal [facility] CNOVon 01-21-2024 CNOV Office Visit (REHAV) MONIKA HASKINS ([id number]) 1970 F Date Time Provider Department 01/21/24 9:15 AM PATRICK BUSTAMANTE During your visit today, we recorded the following information about you: Pulse Blood pressure 102/minute 116/66 Patrick Bustamante MD 01/21/2024 9:21 AM Signed Baclofen 10 mg tablets Take 1 tablet in the morning, afternoon and at bedtime. Contact the office with any questions or concerns ([employer] or [phone]). MD Dianna Sun Keith, MD 01/21/2024 12:23 [...] cognition, language or prosody on interview. Formal COAL TOWER OPERATOR testing was not performed today. Cranial Nerves: [...] (She uses (more content not included)... Normal [facility] Screenson 01-15-2024 Screens [id number] .00TIFF Normal [facility] Ambulatory Visit Summaryon 0 01-14-2024 Ambulatory Visit Summary TRISTENELZA POSEYGeovani Harvey :1970 Visit Date:01/14/2024 Ambulatory Visit Instructions Your [...] 10:20 AM EDT With: Ara Michelle Where: [facility] Invalid Interpretation Code [address] [place] [address]- \.br\ You Need to Complete the Following\.br\ BD Bone Density DEXA, 01/14/24, Routine, Order for Future Visit, Transport Mode: Ambulatory, Reason: Post menopausal, Ovarian failure [facility] Ambulatory Visit Summary MONIKA HASKINS :1970 [...] 10:20 AM EDT With: Ara Michelle Where: [facility] Invalid Interpretation Code [address] [place] [address]- \.br\ You Need to Complete the Following\.br\ BD Bone Density DEXA, 01/14/24, Routine, Order for Future Visit, Transport Mode: Ambulatory, Reason: Post menopausal, Ovarian failure [facility] Office/Clini c Noteon 01-14-2024 [facility] Medicine Office/Clinic Note Chief Complaint Subsequent Medicare [...] of clutter to prevent tripping and/or falling. [place] Advance Directives reviewed, does not have, declines [...] visit scheduled: Will have labs completed with [facility]. Colonoscopy/ Cologuard, patient has Cologuard kit at [...] in life. Dexa Scan ordered, patient request [facility] to call to arrange. 4. Overactive bladder (N32.81: Overactive bladder) Patient receives Botox as needed, states effective. Patient follows with Dr. Blas. Patient states she is about due for another Botox injection and will be calling [facility] to arrange. 5. Obesity due to excess [...] and patient's (more content not included)... Normal [facility] Comment on above: Result Comment: Elec [...] she [facility] will [facility] but Buderer [...] of Est. Patient Straight Fwd 10-19 Min 45498 2. BMI 34.0-34.9,adult (Z68.34: Body mass index [BMI] 34.0-34.9, adult) BMI education complete. pt is up 5 pounds. states she has been stress eating and has not been working out like she was. Ordered: Body Mass Index (BMI) documented 3008F Current tobacco non-user 1036F Depression Screening Negative 3352F E&M of Est. Patient Straight Fwd 10-19 Min 99177 Influenza immunization status assessed 1030F Medicare Subsequent [...] of Est. Patient Straight Fwd 10-19 Min 89268 Influenza immunization status assessed 1030F Medicare Subsequent Visit G0439 Most recent diastolic blood pressure 80-89 mm Hg 3079F Systolic BP <130 mm Hg (Most Recent) 3074F 4. Nonsmoker (Z78.9: Other specified health status) continue not smoking Ordered: Body Mass Index (BMI) documented 3008F Current tobacco non-user 1036F Depression Screening Negative 3352F E&M of Est. Patient Straight Fwd 10-19 Min 34885 Influenza immunization status assessed 1030F Most recent [...] weekly., # 15 mL, Refills(s) 1, Pharmacy: [facility], 177, cm, 12/15/23 10:24:00 [...] Bronchitis Cervic (more content not included)... Normal [facility] Comment on above: Result Comment: Elec tronically Signed By: Guilherme WILL, Ara Cote\.br\Date and Time Signed: 01/14/24 11:41 EST Patient Educationon 01-14-20 Patient Education [facility] Fall Prevention in the Home, Adult Falls [...] night-lights. ? Place frequently used items in lwpz-wy-oevkw places. Lower the shelves around your home [...] the way. ? Do not use floor danish or wax that makes floors slippery. If [...] include working with a physical therapist or link trainer maintenance man to improve your strength, balance, and endurance. Where to find more information ? Centers for Disease Control and Prevention, [place]: www.cdc.gov ? National [place] on Aging: www.taty.nih.gov Contact a health care [...] your health ca (more content not included)... [facility] Physician Orderon 01-14-2024 Physician Order [id number] .00TIFF [facility] Retail - Clinical Noteon Retail - Clinical Note [id number] .00TIFF [facility] Pre-Certification Formon Pre-Certification Form [id number] .00TIFF [facility] Ambulatory Visit Summaryon 0 12-15-2023 Ambulatory Visit [...] Appointments Friday 9:30 AM EST With: Where: [facility] Normal [address] \.br\ Medications\.br\ What How Much When [...] for choosing us for your care.\.br\ \.br\ [facility] Family Medicine Office/Clini c Noteon 12-15-2023 [...] WEEKS, # 4 EA, Refills(s) 0, Pharmacy: [facility], 177, cm, 12/15/23 10:24:00 EST, [...] 07/2021 Re (more content not included)... Normal [facility] Comment on above: Result Comment: Elec [...] 9:40 AM EST With: Ara Michelle Where: [facility] [place] Normal [facility] Family Medicine Office/Clini c Noteon 11-25-2023 Family Medicine [...] E&M of Est. Patient Low 20-29 Min 61315 2. Congestion of nasal sinus (R09.81: Nasal congestion) see above Ordered: E&M of Est. Patient Low 20-29 Min 12563 3. BMI 33.0-33.9,adult (Z68.33: Body mass index [BMI] 33.0-33.9, adult) Ordered: E&M of Est. Patient Low 20-29 Min 93945 Orders: azithromycin, = 1 packet(s), Oral, As Directed, as directed on package labeling, X 5 day(s), # 6 tab(s), Refills(s) 0, Pharmacy: [facility]/pharmacy #[id number], 177, cm, 11/25/23 14:58:00 EST, Height/Length Dosing, 106, kg, 11/25/23 14:58:00 EST, Weight Dosing methylPREDNISolone, = 1 packet(s), Oral, As Directed, as directed on package labeling, X 6 day(s), # 21 tab(s), Refills(s) 0, Pharmacy: [facility]/pharmacy #[id number], 177, cm, 11/25/23 14:58:00 EST, Height/Length [...] Ad26 vaccine (more content not included)... Normal [facility] Comment on above: Result Comment: Elec tronically Signed By: Ara Michelle\.br\Date and Time Signed: 11/25/23 15:19 EST Ambulatory Visit Summaryon 1 01-13-2023 Ambulatory Visit Summary ELZA HASKINSGeovani Harvey :1970 Visit Date:11/12/2023 Ambulatory Visit Instructions Your [...] 9:40 AM EST With: Ara Michelle Where: [facility] Ambulatory Visit Summary MONIKA HASKINS :1970 Visit [...] 9:40 AM EST With: Ara Michelle Where: [facility] Family Medicine Office/Clini c Noteon 11-12-2023 Family [...] would like to possibly go back to [facility] in November. will discuss at next visit. RTC 4 weeks 2. BMI 33.0-33.9,adult (Z68.33: Body mass index [BMI] 33.0-33.9, adult) BMI education complete 3. Non-smoker (Z78.9: Other specified health status) continue not smoking Ordered: phentermine, 37.5 mg = 1 tab(s), Oral, Daily, # 30 tab(s), Refills(s) 0, Pharmacy: [facility], 177, cm, 11/12/23 9:58:00 EST, Height/Length Dosing, 103.6, kg, 11/12/23 9:58:00 EST, Weight Dosing phentermine, 37.5 mg = 1 tab(s), Oral, Daily, # 30 tab(s), Refills(s) 0, Pharmacy: [facility], 177, cm, 09/09/23 11:33:00 EDT, Height/Length [...] 09/16/2011 Given measles/mumps (more content not included)... [facility] Comment on above: Result Comment: Elec tronically [...] 10:20 AM EST With: Ara Michelle Where: [facility] Consent for Flu Vaccineon Consent for Flu Vaccine [id number]. 00TIFF Silviano Goldstein [facility] Family Medicine Office/Clini c Noteon 10-08-2023 Family Medicine [...] Daily, # 30 tab(s), Refills(s) 0, Pharmacy: [facility], 177, cm, 09/09/23 11:33:00 EDT, Height/Length Dosing, 105.2, kg, 09/09/23 11:33:00 EDT, Weight Dosing phentermine, 37.5 mg = 1 tab(s), Oral, Daily, # 30 tab(s), Refills(s) 0, Pharmacy: [facility], 177, cm, 09/09/23 11:33:00 EDT, Height/Length Dosing, 105.2, kg, 09/09/23 11:33:00 EDT, Weight Dosing Encounter for immunization (Z23: Encounter for immunization) flu vaccine given Ordered: Admin flu virus vaccine G0008 Non-smoker (Z78.9: Other specified health status) continue not smoking Ordered: phentermine, 37.5 mg = 1 tab(s), Oral, Daily, # 30 tab(s), Refills(s) 0, Pharmacy: [facility], 177, cm, 09/09/23 11:33:00 EDT, Height/Length Dosing, 105.2, kg, 09/09/23 11:33:00 EDT, Weight Dosing phentermine, 37.5 mg = 1 tab(s), Oral, Daily, # 30 tab(s), Refills(s) 0, Pharmacy: [facility], 177, cm, 09/09/23 11:33:00 EDT, Height/Length [...] 09/16/2011 Tob (more content not included)... Normal [facility] Comment on above: Result Comment: Elec tronically Signed By: Ara Michelle\.br\Date and Time Signed: 10/08/23 11:36 EST Pre-Visit Planningon 023 Pre-Visit Planning - From: Miriam Parker RN To: Ara Michelle; Sent: 09/05/2023 14:30:15 EDT Subject: Pre-Visit Planning Due Date/Time: 09/05/2023 14:30:00 EDT Caller Name: MONIKA HASKINS; Caller Number: H , M Ciro Bullock, *Based on your response below, [...] everything was fine. ? CS - section ([id number]): Resolved. Biopsy of brain tissue tumor ([id number]): Resolved. ? Brain tumor (239.6): Resolved.. Surgical history: Surgical history Gallbladder operation (124134977). Based on your medical judgment, can you [...] feel free to contact me at extension [phone]. Thank you! GAIL Rubio, RN, [facility], CCDS, CCDS-O From: Ara Michelle To: Elena CHARLES, Miriam; Sent: 10/01/2023 16:59:29 EST Subject: RE: Pre-Visit Planning Caller Name: MONIKA HASKINS; Caller Number: H , M History of brain tumor Normal [address] [facility] Ambulatory Visit Summaryon 1 Ambulatory Visit Summary [...] 11:00 AM EST With: Ara Michelle Where: [facility] Family Medicine Office/Clini c Noteon 09-09-2023 Family [...] Daily, # 30 tab(s), Refills(s) 0, Pharmacy: [facility], 177, cm, 09/09/23 11:33:00 EDT, Height/Length Dosing, 105.2, kg, 09/09/23 11:33:00 EDT, Weight Dosing phentermine, 37.5 mg = 1 tab(s), Oral, Daily, # 30 tab(s), Refills(s) 0, Pharmacy: [facility], 177, cm, 08/12/23 11:53:00 EDT, Height/Length [...] to [place] (more content not included)... Normal [facility] Comment on above: Result Comment: Elec tronically Signed By: Ara Michelle\.mark\Date and Time Signed: 09/09/23 12:29 EDT CHEMISTRYOrdered [...] 17 mg/dL Normal 5 - 21 mg/dL [facility] Remisol Urea nitrogen/Creatinine [Mass ratio] 24 mg/mg [...] 2.0 E9/L Normal 1.0 - 4.0 E9/L [facility] Monocytes/100 WBC (Bld) 6.8 % Normal 4.0 - 14.0 % [facility] Monocytes/Leukocyte s Auto (Bld) [Pure # fraction] 0.5 E9/L Normal 0.2 - 1.0 E9/L [facility] Neutrophils/100 WBC (Bld) 63.8 % Normal 36.0 - 75.0 % [facility] Neutrophils/Leukocy che[place]ie Auto (Bld) [Pure # fraction] 4.9 E9/L Normal 2.0 - 7.5 E9/L [facility]SS HEMATOLOGYOrdered By: Francisco Mas on 06-24-2023 Erythrocyte distribution width (RBC) [Ratio] 13.3 % Normal 10.9 - 14.2 % [facility] Hematocrit (Bld) [Volume fraction] 45.4 % Normal 34.0 - 46.0 % [facility] Hemoglobin (Bld) [Mass/Vol] 15.0 g/dL Normal 12.0 - 16.0 gm/dL [facility] MCH (RBC) [Entitic mass] 28.7 pg Normal 27.0 - 34.0 pg [facility] MCHC (RBC) [Mass/Vol] 33.1 g/dL Normal 31.4 - 36.0 gm/dL [facility] MCV (RBC) [Entitic vol] 86.6 fL Normal 80.0 - 100.0 fL [facility] Platelet mean volume (Bld) [Entitic vol] 11.4 fL High 6.4 - 10.8 fL [facility] Platelets (Bld) [#/Vol] 276.0 E9/L Normal 150.0 - 500.0 E9/L [facility] RBC (Bld) [#/Vol] 5.2 E12/L Normal 4.3 - 5.9 E12/L [facility] WBC corrected for nucl RBC Auto (Bld) [#/Vol] 7.7 E9/L Normal 4.0 - 11.0 E9/L [facility] CBC W Auto Differential pane l (Bld)on 12-16-2022 Basophils (Bld) [#/Vol] 0.03 10*3/uL <0.11 k/uL [facility] Basophils/100 WBC (Bld) 0.4 % [facility] Differential cell count method Nom (Bld) Auto [facility] Eosinophils (Bld) [#/Vol] 0.10 10*3/uL <0.46 k/uL [facility] Eosinophils/100 WBC (Bld) 1.4 % [facility] Erythrocyte distribution width (RBC) [Ratio] 12.6 % 11.5 - 15.0 % [facility] Hematocrit (Bld) [Volume fraction] 45.0 % 36.0 - 46.0 % [facility] Hemoglobin (Bld) [Mass/Vol] 14.9 g/dL 11.5 - 15.5 g/dL [facility] Immature granulocytes (Bld) [#/Vol] <0.10 k/uL [facility] Immature granulocytes/100 WBC (Bld) 0.3 % [facility] Lymphocytes (Bld) [#/Vol] 2.01 10*3/uL 1.00 - 4.00 k/uL [facility] Lymphocytes/100 WBC (Bld) 27.8 % [facility] MCH (RBC) [Entitic mass] 28.3 pg 26.0 - 34.0 pg [facility] MCHC (RBC) [Mass/Vol] 33.1 g/dL 30.5 - 36.0 g/dL [facility] MCV (RBC) [Entitic vol] 85.4 fL 80.0 - 100.0 fL [facility] Monocytes (Bld) [#/Vol] 0.53 10*3/uL <0.87 k/uL [facility] Monocytes/100 WBC (Bld) 7.3 % [facility] Neutrophils (Bld) [#/Vol] 4.55 10*3/uL 1.45 - 7.50 k/uL [facility] Neutrophils/100 WBC (Bld) 62.8 % [facility] Nucleated RBC (Bld) [#/Vol] <0.01 k/uL [facility] Nucleated RBC/100 WBC (Bld) [Ratio] 0.0 /100 WBC [facility] Platelet mean volume (Bld) [Entitic vol] 12.7 fL 9.0 - 12.7 fL [facility] Platelets (Bld) [#/Vol] 241 10*3/uL 150 - 400 k/uL [facility] RBC (Bld) [#/Vol] 5.27 10*6/uL High 3.90 - 5.20 m/uL [facility] WBC (Bld) [#/Vol] 7.24 10*3/uL 3.70 - 11.00 k/u L [facility] MRI BRAIN WO/W IVCONon 12-16 [facility] XR HAND LT MIN 3Von 12-16-19 XR HAND LT MIN 3V Patient: MONIKA HASKINS Exam Date: 12/16/2019 : 1970 Gender:F Ordering : TEREZA LITTLEJOHN Admission #: [id number] Family : DR NICOLA JOHNSON D.O. Order #: [id number] CLICK HERE TO VIEW EXAM RADIOLOGY REPORT [...] Longo M.D. on 12/16/2019 at 12:10 Normal [facility] Vital Signs Date Time Vital Sign Value Performing Clinician Facility 12-22-2024 15:28-0500 Body mass index (BMI) [Ratio] 29.29 kg/m2 Kelley LITTLEJOHN Work Phone: [facility] 12-22-2024 15:28-0500 Body weight 100.7 kg Kelley LITTLEJOHN Work Phone: [facility] 12-22-2024 15:28-0500 Diastolic blood pressure 76 mm[Hg] Kelley LITTLEJOHN Work Phone: [facility] 12-22-2024 15:28-0500 Systolic blood pressure 128 mm[Hg] Kelley LITTLEJOHN Work Phone: [facility] 12-15-2024 13:08-0500 Diastolic blood pressure 79 mm[Hg] Patrick Bustamante MD Work Phone: [facility] 12-15-2024 13:08-0500 Heart rate 90 /min Patrick Bustamante MD Work Phone: [facility] 12-15-2024 13:08-0500 Systolic blood pressure 122 mm[Hg] Patrick Bustamante MD Work Phone: [facility] 2024 11:30-0400 Diastolic blood pressure 83 mm[Hg] Patrick Bustamante MD Work Phone: [facility] 2024 11:30-0400 Heart rate 103 /min Patrick Bustamante MD Work Phone: [facility] 2024 11:30-0400 Systolic blood pressure 130 mm[Hg] Patrick Bustamante MD Work Phone: [facility] 05-26-2024 12:57-0400 Diastolic blood pressure 80 mm[Hg] Patrick Bustamante MD Work Phone: [facility] 05-26-2024 12:57-0400 Heart rate 93 /min Patrick Bustamante MD Work Phone: [facility] 05-26-2024 12:57-0400 Systolic blood pressure 124 mm[Hg] Patrick Bustamante MD Work Phone: [facility] 04-16-2024 16:08-0400 Body height 180.3 cm Mio Rogers MD Work Phone: [facility] 04-16-2024 16:08-0400 Body mass index (BMI) [Ratio] 32.96 kg/m2 Mio Rogers MD Work Phone: [facility] 04-16-2024 16:08-0400 Body temperature 98.71 [degF] Mio Rogers MD Work Phone: [facility] 04-16-2024 16:08-0400 Body weight 107.2 kg Mio Rogers MD Work Phone: [facility] 04-16-2024 16:08-0400 Diastolic blood pressure 69 mm[Hg] Mio Rogers MD Work Phone: [facility] 04-16-2024 16:08-0400 Heart rate 106 /min Mio Rogers MD Work Phone: [facility] 04-16-2024 16:08-0400 Respiratory rate 20 /min Mio Rogers MD Work Phone: [facility] 04-16-2024 16:08-0400 SaO2% (BldA) [Mass fraction] 98 % Mio Rogers MD Work Phone: [facility] 04-16-2024 16:08-0400 Systolic blood pressure 126 mm[Hg] Mio Rogers MD Work Phone: [facility] 03-23-2024 14:35-0400 Blood Pressure Location Elo Orzech [facility] 03-23-2024 14:35-0400 Diastolic blood pressure 70 mm[Hg] Elo Orzech [facility] 03-23-2024 14:35-0400 Heart rate 60 /min Elo Orzech [facility] 03-23-2024 14:35-0400 Respiratory rate 16 /min Elo Orzech [facility] 03-23-2024 14:35-0400 Systolic blood pressure 130 mm[Hg] Elo Orzech [facility] 01-21-2024 09:09-0500 Diastolic blood pressure 66 mm[Hg] Patrick Bustamante MD Work Phone: [facility] 01-21-2024 09:09-0500 Heart rate 102 /min Patrick Bustamante MD Work Phone: [facility] 01-21-2024 09:09-0500 Systolic blood pressure 116 mm[Hg] Patrick Bustamante MD Work Phone: [facility] 09-03-2023 08:12-0400 Body height 180.3 cm Patrick Bustamante MD Work Phone: [facility] 09-03-2023 08:12-0400 Body weight 104.33 kg Patrick Bustamante MD Work Phone: [facility] 07-22-2023 13:08-0400 Blood Pressure Location LIANNA GABRIEL [facility] 07-22-2023 13:08-0400 Diastolic blood pressure 76 mm[Hg] LIANNA GABRIEL [facility] 07-22-2023 13:08-0400 Heart rate 70 /min LIANNA GABRIEL [facility] 07-22-2023 13:08-0400 Respiratory rate 16 /min LIANNA GABRIEL [facility] 07-22-2023 13:08-0400 Systolic blood pressure 128 mm[Hg] LIANNA GABRIEL [facility] 10-30-2022 13:42-0500 Blood Pressure Location Kelly Payan [facility] 10-30-2022 13:42-0500 Diastolic blood pressure 68 mm[Hg] Kelly Payan [facility] 10-30-2022 13:42-0500 Heart rate 89 /min Kelly Payan [facility] 10-30-2022 13:42-0500 Systolic blood pressure 115 mm[Hg] Kelly Payan [facility] 04-17-2022 14:38-0400 Heart rate 75 /min LIANNA RIOS [facility] [place] [employer] [facility] 04-17-2022 14:38-0400 Respiratory rate 16 /min [facility] 03-05-2022 11:28-0400 Blood Pressure Location LIANNA RIOS [facility] [place] [employer] [facility] 03-05-2022 11:28-0400 Diastolic blood pressure 73 mm[Hg] LIANNA RIOS [facility] [place] [facility] 03-05-2022 11:28-0400 Heart rate 96 /min LIANNA RIOS [facility] [place] [employer] 03-05-2022 11:28-0400 Systolic blood pressure 122 mm[Hg] [facility] [employer] Encounters Encounter Date Encounter Type Care Provider Facility Start: 01-24-2025 End: 01-24-2025 ambulatory Ara Vanegas Facility:[facility] Start: 01-12-2025 End: 01-12-2025 Avilaborochelle LITTLEJOHN Work Phone: [facility] Start: 01-12-2025 End: 01-12-2025 Avilaboo ericka LITTLEJOHN Work Phone: [facility] Start: 01-12-2025 End: 01-12-2025 Postop follow up visit related to original px Kelley LITTLEJOHN Work Phone: [facility] Comment on above: Postoperative follow -up Start: 01-12-2025 End: 01-12-2025 ambulatory KELLEY BOLAÑOS Not Available Start: 12-31-2024 End: 12-31-2024 Clinisync Result Encounter Carter Surendra DO Work Phone: [facility] Unsolicited Start: 12-31-2024 End: 12-31-2024 Clinisync Result Encounter Carter Surendra DO Work Phone: [facility] Unsolicited Start: 12-31-2024 End: 12-31-2024 [facility] Start: 12-31-2024 End: 12-31-2024 Departed Referred Carter Surendra DO Work Phone: [facility] Start: 12-28-2024 End: 12-28-2024 Clinisync Result Encounter [...] 12-22-2024 Bamboo flowsheet Kelley LITTLEJOHN Work Phone: [facility] Start: 12-22-2024 End: 12-22-2024 Bamboo flowsheet Kelley LITTLEJOHN Work Phone: [facility] Start: 12-15-2024 End: 12-15-2024 ambulatory ERICA MERCEDES Facility:[facility] Start: 12-15-2024 End: 12-15-2024 Patient encounter procedure Patrick Bustamante MD Work Phone: Rehab Medicine Comment on above: 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) (Primary Dx); Brain tumor (HCC) Start: 11-09-2024 End: 11-09-2024 ambulatory Ara L Guilherme Facility: [facility] Start: 10-12-2024 End: 10-12-2024 ambulatory Ara L Guilherme Facility: [facility] Start: 09-14-2024 End: 09-14-2024 ambulatory Ara L Guilherme Facility: [facility] Start: 2024 End: 2024 ambulatory PATRICK BUSTAMANTE Facility:[facility] Start: 2024 End: 2024 Patient encounter procedure Patrick Bustamante MD Work Phone: Rehab Medicine Comment on above: 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) (Primary Dx) Start: 09-02-2024 End: 09-02-2024 ambulatory Ara L Guilherme Facility: [facility] Start: 07-29-2024 End: 07-29-2024 Lab Drop off Ara L Guilherme [facility] Start: 07-29-2024 End: 07-29-2024 ambulatory Ara L Guilherme Facility[facility] Start: 07-20-2024 ambulatory Ara L Guilherme Facility: [facility] Start: 06-24-2024 End: 06-24-2024 ambulatory Ara L Guilherme Facility:[facility] Start: 06-01-2024 End: 06-01-2024 ambulatory Elo X Orzech Facility: [facility] Start: 06-01-2024 End: 06-01-2024 Patient encounter procedure Elo X Orabdoul [facility] Start: 05-26-2024 End: 05-26-2024 ambulatory PATRICK BUSTAMANTE Facility:[facility] Start: 05-26-2024 End: 05-26-2024 Patient encounter procedure Patrick Bustamante MD Work Phone: Rehab Medicine Comment on above: 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) (Primary Dx); Brain tumor (HCC) Start: 05-25-2024 End: 05-25-2024 ambulatory Ara L Guilherme Facility:[facility] Start: 05-19-2024 ambulatory Patrick Bustamante MD Work Phone: Rehab Medicine Start: 05-19-2024 Patient encounter procedure Sumit Bustamante MD Work Phone: Rehab Medicine Comment on above: botox Start: 05-07-2024 Telephone encounter Mio rubi MD Work Phone: Hematology/Oncology Comment on above: Lead Producer - O ther ([place] [employer] Form ) Start: 05-06-2024 ambulatory Mio Rogers MD Work Phone: Hematology/Oncology Comment on above: [place] Start: 04-16-2024 End: 04-17-2024 [...] End: 03-23-2024 ambulatory Elo X Manpreet Facility:[facility] Start: 03-23-2024 End: 03-23-2024 Patient encounter procedure Elo X Orabdoul [facility] [place] Start: 03-22-2024 End: 03-22-2024 Subsequent hospital visit by physician Mri Zenia (I-Stat/3t) Work Phone: Radiology Comment on above: Brain tumor (HCC) [D 49.6] Start: 03-17-2024 End: 03-17-2024 Refill Mitzy Brush RN Work Phone: Hematology/Oncology Comment on above: Refill Request Start: 02-25-2024 End: 02-25-2024 ambulatory Ara L Guilherme Facility:[facility] Start: 02-18-2024 End: 02-18-2024 ambulatory ERICA ARAMBULA TOPEKA Facility:[facility] Start: 01-21-2024 End: 01-21-2024 [facility] Start: 01-21-2024 End: 01-21-2024 Patient encounter procedure Patrick Bustamante MD Work Phone: Rehab Medicine Comment on above: 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) (Primary Dx) Start: 01-14-2024 End: 01-14-2024 ambulatory Ara L Guilherme Facility:[facility] Start: 12-15-2023 End: 12-15-2023 ambulatory Ara L Guilherme Facility:[facility] [place] Start: 11-25-2023 End: 11-25-2023 ambulatory Ara L Guilherme Facility:[facility] Start: 11-12-2023 End: 11-12-2023 ambulatory Ara L Guilherme Facility:[facility] [place] Start: 10-26-2023 ambulatory Mio Rogers MD Work Phone: Hematology/Oncology Comment on above: baclofen 10 mg Start: 10-24-2023 Refill Patrick Bustamante MD Work Phone: Rehab Medicine Comment on above: Refill Request Start: 10-08-2023 End: 10-08-2023 ambulatory Ara L Guilherme Facility:[facility] Start: 09-09-2023 End: 09-09-2023 ambulatory [facility] Start: 09-03-2023 End: 09-03-2023 Patient encounter procedure Patrick Bustamante MD Work Phone: Rehab Medicine Comment on above: 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) (Primary Dx); Brain tumor (HCC) Start: 08-22-2023 End: 08-22-2023 Patient encounter procedure Ara L Guilherme [facility] Start: 07-22-2023 End: 07-22-2023 Patient encounter procedure LIANNA RIOS [facility] Start: 07-09-2023 End: 07-09-2023 Patient encounter procedure Patrick Bustamante MD Work Phone: Rehab Medicine Comment on above: APPOINTMENT CANCELLE D (Primary Dx) Start: 07-08-2023 End: 07-08-2023 Patient encounter procedure Oseas BLAS [facility] Start: 07-02-2023 End: 07-02-2023 Patient encounter procedure Ara L Guilherme [facility] Start: 06-24-2023 End: 06-24-2023 Lab Drop off Ara Vanegas [facility] Start: 12-20-2022 End: 12-20-2022 ambulatory Mio Rogers MD Work Phone: Hematology/Oncology Comment on above: AL amyloidosis (HCC) (Primary Dx); Brain tumor (HCC) Start: 12-20-2022 End: 12-20-2022 Telemedicine consultation with patient Mio Rogers MD Work Phone: [facility] Start: 12-17-2022 ambulatory Mio Rogers MD Work Phone: Hematology/Oncology Start: 12-16-2022 End: 12-16-2022 Orders Only Zonia Josue RN Work Phone: Hematology/Oncology Comment on above: 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] Start: 12-12-2022 Refill Mio Rogers MD Work Phone: Hematology/Oncology Comment on above: Refill Request Start: 10-30-2022 End: 10-30-2022 Patient encounter procedure Kelly Payan [facility] Start: 10-01-2022 End: 10-01-2022 Patient encounter procedure Oseas BLAS [facility] Start: 09-23-2022 End: 09-23-2022 Subsequent hospital visit by physician Mri Main Ca (1.5t) Work Phone: Radiology Comment on above: Canceled (Pt cx: Res cheduled) Start: 09-23-2022 End: 09-23-2022 Patient encounter procedure Oseas BLAS [facility] [place] Start: 09-11-2022 Refill Mio Rogers MD Work Phone: Hematology/Oncology Comment on above: Refill Request Start: 07-26-2022 Telephone encounter Mio rubi MD Work Phone: Hematology/Oncology Comment on above: Lead Producer - O ther (Question re: appts) Start: 06-03-2022 Telephone encounter Mio rubi MD Work Phone: Hematology/Oncology Comment on above: Care Coordination ([employer] Form) Start: 04-17-2022 End: 04-17-2022 Lab Drop off LIANNA RIOS [facility] Start: 04-17-2022 End: 04-17-2022 Patient encounter procedure LIANNA RIOS [facility] [place] Start: 03-05-2022 End: 03-05-2022 Patient encounter procedure LIANNA RIOS [facility] [place] Start: 02-27-2022 Telephone encounter Mio rubi MD Work Phone: Hematology/Oncology Comment on above: Lead Producer - O ther (handicap) Start: 02-12-2022 End: 02-12-2022 Patient encounter procedure Oseas BLAS [facility] Start: 10-16-2020 End: 10-16-2020 Subsequent hospital visit by physician Mri [facility] [place] (Lg Bore/1.5t) Radiology MRI Comment on above: Canceled (Pt cx: d/t [place] Virus COVID-19 Process) Start: 12-16-2019 End: 12-16-2019 Patient encounter procedure [facility] Facility: Procedures Date Procedure Procedure Detail Performing Clinician Start: 12-31-2024 ALL CBC WITH AUTO DIFF Carter Agosto DO Work Phone: Start: 12-28-2024 ECG 12-LEAD Carter Leono DO Work Phone: Start: 12-23-2024 ALL LDH [...] brain stem w/o w/contrast material Mansi Gallagher APRN.PROFESSOR OF FORESTRY Work Phone: Start: 10-11-2022 Injection of therapeutic substance into bladder wall Kelly Payan Start: 03-30-2019 Injection of therapeutic substance into bladder wall Oseas BLAS Start: 11-10-2018 Injection of therapeutic substance into bladder wall Oseas BLAS Start: 12-09-2017 Cystourethroscopy with dilation of urethral stricture Oseas BLAS Start: 11-11-2017 Urodynamic studies Oseasshivani BLAS Start: 02-17-2015 Adult depression screening assessment Mio Rogers MD Work Phone: brain biopsy Oseas BLAS 2010 Oseas SULLIVAN S section CS - section( Confirmed ) Oseas BLAS Cholecystectomy Cholecystectomy( Confirmed ) Oseas BLAS Operation on gallbladder Isa shivani BLAS Plan of Treatment Date Care Activity Detail Author Start: 04-16-2027 Diabetes Screening Diabetes Screenin [facility] Start: 06-24-2026 Screening for malign ant neoplasm of cervix [facility] Start: 12-16-2025 DIABETES SCREEN [facility] Start: 12-16-2025 [facility] Start: 05-18-2025 End: 05-18-2025 Patient encounter procedure 05/18/2025 3:00 PM EDT Office Visit [facility] [address] [place] [phone] Carter Agosto, DO [address] [place] [address] [facility] Start: 04-16-2025 End: 07-16-2025 CBC W Auto Differential panel - Blood COMPLETE BLOOD COUNT AND DIFFERENTIAL Lab Routine AL amyloidosis (HCC) Expected: 04/16/2025 (Approximate), Expires: 07/16/2025 [facility] Comment on above: Expected: 04/16/2025 (Approximate), Expires: 07/16/2025 Start: 04-16-2025 End: 07-16-2025 Comprehensive metabolic 2000 panel - Serum or Plasma COMPREHENSIVE METABOLIC PANEL Lab Routine AL amyloidosis (HCC) Expected: 04/16/2025 (Approximate), Expires: 07/16/2025 [facility] Work Phone: Comment on above: Expected: 04/16/2025 (Approximate), Expires: 07/16/2025 Start: 04-16-2025 End: 07-16-2025 MONOCLONAL PROTEIN, SERUM (BLOOD) MONOCLONAL PROTEIN, SERUM (BLOOD) Lab Routine AL amyloidosis (HCC) Expected: 04/16/2025 (Approximate), Expires: 07/16/2025 [facility] Comment on above: Expected: 04/16/2025 (Approximate), Expires: 07/16/2025 Start: 04-16-2025 End: 05-16-2025 MR Brain WO and W contrast IV MRI BRAIN WO/W IVCON Radiology Routine Brain tumor (HCC) Expected: 04/16/2025 (Approximate), Expires: 05/16/2025 [facility] Comment on above: Expected: 04/16/2025 (Approximate), Expires: 05/16/2025 Start: 03-16-2025 End: 03-16-2025 Patient encounter procedure 03/16/2025 10:30 AM EDT Office Visit Rehab Medicine [address] [place] [address] Patrick Bustamante MD [address] [place] [address] 3 month botox Rehab Medicine Comment on above: 3 month botox Start: 02-08-2025 ambulatory Ambulatory Facility:[facility] Start: 01-13-2025 ambulatory Ambulatory Facility:[facility] Start: 01-12-2025 End: 01-12-2025 Patient encounter procedure 01/12/2025 1:40 PM EST Office Visit [facility] [address] [place] [phone] Kelley Bolaños PA [address] [place] [address] Arrived [facility] Comment on above: Arrived Start: 12-22-2024 End: 12-22-2024 Patient encounter procedure 12/22/2024 3:30 PM EST Office Visit [facility] [address] [place] [phone] Kelley Bolaños PA [address] [place], [place] [id number] Arrived [facility] Comment on above: Arrived Start: 12-22-2024 End: 12-22-2025 AFP tumor marker AFP tumor marker Lab Routine Complex ovarian cyst Expected: 12/22/2024 (Approximate), Expires: 12/22/2025 [facility] Comment on above: Expected: 12/22/2024 (Approximate), Expires: 12/22/2025 Start: 12-22-2024 End: 12-22-2025 CA 125 CA 125 Lab Routine Complex ovarian cyst Expected: 12/22/2024 (Approximate), Expires: 12/22/2025 [facility] Comment on above: Expected: 12/22/2024 (Approximate), Expires: 12/22/2025 Start: 12-22-2024 End: 12-22-2025 Carcinoembryonic Ag [Mass/volume] in Serum or Plasma CEA Lab Routine Complex ovarian cyst Expected: 12/22/2024 (Approximate), Expires: 12/22/2025 [facility] Comment on above: Expected: 12/22/2024 (Approximate), Expires: 12/22/2025 Start: 12-22-2024 End: 12-22-2025 HCG, tumor marker HCG, tumor marker Lab Routine Complex ovarian cyst Expected: 12/22/2024 (Approximate), Expires: 12/22/2025 [facility] Comment on above: Expected: 12/22/2024 (Approximate), Expires: 12/22/2025 Start: 12-22-2024 End: 12-22-2025 Lactate dehydrogenase, isoenzymes Lactate dehydrogenase, isoenzymes Lab Routine Complex ovarian cyst Expected: 12/22/2024 (Approximate), Expires: 12/22/2025 [facility] Work Phone: Comment on above: Expected: 12/22/2024 (Approximate), Expires: 12/22/2025 Start: 12-15-2024 End: 12-15-2024 Patient encounter procedure 12/15/2024 1:00 PM EST Office Visit Rehab Medicine [address] [place] [address] Patrick Bustamante MD [address] [place] [address] [facility] Comment on above: [facility] Start: 09-17-2024 DIABETES SCREEN DI[facility] Start: 2024 End: 2024 Patient encounter procedure 2024 11:15 AM EDT Office Visit Rehab Medicine [address] [place] [address] Patrick Bustamante MD [address] [place] [address] [facility] Comment on above: [facility] Start: 07-25-2024 Covid-19 Vaccine ( season) Covid-19 Vaccine () [facility] Start: 07-25-2024 Influenza vaccination Influenza Vacc ine (#1) [facility] Start: 05-26-2024 End: 05-26-2024 Patient encounter procedure 05/26/2024 1:00 PM EDT Office Visit Rehab Medicine [address] [place] [address] Patrick Bustamante MD [address] [place], [place] [id number] [facility] Comment on above: [facility] Start: 04-16-2024 End: 04-16-2024 Follow-up encounter 04/16/2024 4:00 PM EDT Visit (SP) Office Hematology/Oncology [address] [place] [phone] Mio Rogers MD [address] [place] [address] FOLLOW UP Hematology/Oncology Comment on above: FOLLOW UP Start: 04-16-2024 End: 04-16-2024 ambulatory 04/16/2024 3:00 PM EDT [facility] Hematology/Oncology [address] [place] [address] labs Hematology/Oncology Comment on above: labs Start: 04-16-2024 Subsequent hospital visit by physician 04/16/2024 2:00 PM EDT Hospital Encounter Radiology [address] [place] [address] Brain tumor (HCC) [D49.6] Radiology Comment on above: Brain tumor (HCC) [D 49.6] Start: 03-22-2024 End: 03-22-2024 Follow-up encounter 03/22/2024 12:00 PM EDT Visit (SP) Office Hematology/Oncology [address] [place] [address] Mio Rogers MD [address] [place] [address] FOLLOW UP Hematology/Oncology Comment on above: FOLLOW UP Start: 03-22-2024 Subsequent hospital visit by physician 03/22/2024 10:40 AM EDT Hospital Encounter Radiology [address] [place] [address] Brain tumor (HCC) [D49.6] Radiology Comment on above: Brain tumor (HCC) [D 49.6] Start: 03-22-2024 End: 03-22-2024 ambulatory 03/22/2024 10:00 AM EDT Results Only [facility] [place] [address] [place] [address] LABS [facility] [place] [facility] [address] Comment on above: LABS Start: 02-05-2024 End: 01-15-2025 MR Brain WO and W contrast IV MRI BRAIN WO/W IVCON Radiology Routine Brain tumor (HCC) AL amyloidosis (HCC) Expected: 02/05/2024, Expires: 01/15/2025 [facility] Work Phone: Comment on above: Expected: 02/05/2024 , Expires: 01/15/2025 Start: 12-20-2023 End: 02-19-2024 CBC W Auto Differential panel - Blood CBC + DIFF Lab Routine AL amyloidosis (HCC) Expected: 12/20/2023 (Approximate), Expires: 02/19/2024 [facility] Work Phone: Comment on above: Expected: 12/20/2023 (Approximate), Expires: 02/19/2024 Start: 12-20-2023 End: 02-19-2024 Comprehensive metabolic 2000 panel - Serum or Plasma COMP METABOLIC PANEL Lab Routine AL amyloidosis (HCC) Expected: 12/20/2023 (Approximate), Expires: 02/19/2024 [facility] Work Phone: Comment on above: Expected: 12/20/2023 (Approximate), Expires: 02/19/2024 Start: 12-20-2023 End: 02-19-2024 MONOCLONAL PROTEIN, SERUM (BLOOD) MONOCLONAL PROTEIN, SERUM (BLOOD) Lab Routine AL amyloidosis (HCC) Expected: 12/20/2023 (Approximate), Expires: 02/19/2024 [facility] Work Phone: Comment on above: Expected: 12/20/2023 (Approximate), Expires: 02/19/2024 Start: 12-20-2023 End: 01-19-2024 Mri brain brain stem w/o w/contrast material MRI BRAIN WO/W IVCON Radiology Routine Brain tumor (HCC) AL amyloidosis (HCC) Expected: 12/20/2023 (Approximate), Expires: 01/19/2024 [facility] Work Phone: Comment on above: Expected: 12/20/2023 (Approximate), Expires: 01/19/2024 Start: 11-24-2023 Behavioral Health Screening Behavioral Health Screening [facility] Start: 11-24-2023 Depression Assessment Depression Ass essment [facility] Start: 07-25-2023 Covid-19 Vaccine () Covid-19 Vaccine () [facility] Start: 07-25-2023 Influenza vaccination [facility] Start: 12-16-2022 End: 02-15-2023 Comprehensive metabolic 2000 panel - Serum or Plasma [facility] Work Phone: Comment on above: Expected: 12/16/2022 , Expires: 02/15/2023 Start: 12-16-2022 End: 02-15-2023 MONOCLONAL PROTEIN, SERUM (BLOOD) [facility] Work Phone: Comment on above: Expected: 12/16/2022 , Expires: 02/15/2023 Start: 11-24-2022 DEPRESSION ASSESSMENT DEPRESSION ASS ESSMENT [facility] Start: 2022 Pneumococcal Vaccine : 50+ (1 of 1 - PCV) Pneumococcal Vaccine: 50+ (1 of 1 - PCV) [facility] Start: 2022 SHINGRIX VACCINE (1 of 2) RODRIGUEZ GRIX VACCINE (1 of 2) [facility] Start: 07-25-2022 Influenza vaccination INFLUENZA (#1) [facility] Start: 01-13-2022 COVID-19 VACCINE (3 - Booster for Pfizer series) COVID-19 VACCINE (3 - Booster for Pfizer series) [facility] Start: 11-24-2021 DEPRESSION ASSESSMENT DEPRESSION ASS ESSMENT [facility] Start: 10-08-2021 COVID-19 VACCINE (3 - Booster for Pfizer series) COVID-19 VACCINE (3 - Booster for Pfizer series) [facility] Start: 10-08-2021 COVID-19 VACCINE (3 - Pfizer series) COVID-19 VACCINE (3 - Pfizer series) [facility] Start: 09-16-2021 Urine microalbumin profile DTa P,Tdap,Td Vaccine (2 - Td or Tdap) [facility] Start: 2017 COLOGUARD (FIT-DNA) COLOGUARD (FIT-D NA) [facility] Start: 2017 Colonoscopy COLONOSCOPY [facility] Start: 2017 COLORECTAL CANCER SCREENING COLORECTAL CANCER SCREENING [facility] Start: [address] COLONOGR[facility]HY [facility] Start: 2017 FECAL OCCULT BLOOD FECAL OCCULT BLOO D [facility] Start: 2017 Lipid 1996 panel - S tameka or Plasma Lipid Screening [facility] Start: 2017 Lipid panel Lipid Screening [facility] Start: 2017 LIPID SCREEN LIPID SCREEN [facility] Start: 2017 Screening for malign ant neoplasm of colon [facility] Start: 2017 SIGMOIDOSCOPY SIGMOIDOSCOPY [facility] Start: 02-18-2016 Adult depression scr eening assessment DEPRESSION SCREENING [facility] Start: 2012 Mammography [facility] Start: 2012 Screening for malign ant neoplasm of breast [facility] Start: 2002 HPV TESTING HPV TESTING [facility] Start: 2002 Screening for malign ant neoplasm of cervix [facility] Start: 1993 PAP TESTING PAP TESTING [facility] Start: 1993 Screening for malign ant neoplasm of cervix [facility] Start: 1991 Hepatitis B Vaccine (1 of 3 - 19+ 3-dose series) Hepatitis B Vaccine (1 of 3 - 19+ 3-dose series) [facility] Start: 1991 Urine microalbumin profile [facility] Start: 1990 Anxiety Screening Anxiety Screening [facility] Start: 1990 Depression Screening Depression Scre ening [facility] Start: 1990 HEPATITIS C SCREENING HEPATITIS C [facility] Start: 1990 Hepatitis C screening Hepatitis C [facility] Start: 1990 HIV SCREENING HIV SCREENING [facility] Start: 1990 HIV screening HIV Screening [facility] Start: 1972 HEPATITIS B (1 of 3 - 3-dose series) HEPATITIS B (1 of 3 - 3-dose series) [facility] Start: 1972 Hepatitis B Vaccine (1 of 3 - 3-dose series) Hepatitis B Vaccine (1 of 3 - 3-dose series) [facility] Start: 1972 Screening for malign ant neoplasm of colon [facility] Immunizations Immunization Date Immunization Notes Care Provider [facility] 10-08-2023 influenza, injectabl e, quadrivalent, preservative free Elo Case [facility] 10-08-2023 influenza virus vaccine, unspecified formulation Patrick Bustamante MD Work Phone: [facility] 09-17-2021 influenza virus vaccine, unspecified formulation LIANNA RIOS [facility] 09-17-2021 influenza, injectabl e, quadrivalent, preservative free Mio Rogers MD Work Phone: [facility] 09-05-2021 influenza virus vaccine, unspecified formulation LIANNA RIOS [facility] Chad 08-24-2021 SARS-CoV-2 (COVID-19 ) Ad26 vaccine, recombinant Oseas BLAS [facility] 08-13-2021 SARS-CoV-2 (COVID-19 ) mRNA BNT-162b2 vax LIANNA RIOS [facility] Comment on above: Result Comment: 2022: [id number] 07-25-2021 SARS-CoV-2 (COVID-19 ) Ad26 vaccine, recombinant Oseas BLAS [facility] 07-23-2021 SARS-CoV-2 (COVID-19 ) mRNA BNT-162b2 vax LIANNA RIOS [facility] Comment on above: Result Comment: 2022: TPV40 09-21-2019 influenza virus vaccine, unspecified formulation LIANNA RIOS [facility] 09-21-2019 influenza, injectabl e, quadrivalent, preservative free Mio Rogers MD Work Phone: [facility] 09-19-2014 influenza virus vaccine, unspecified formulation LIANNA RIOS [facility] 09-19-2014 influenza, injectabl e, quadrivalent, preservative free Mio Rogers MD Work Phone: [facility] 09-24-2013 influenza virus vaccine, unspecified formulation Mio Rogers MD Work Phone: [facility] 11-26-2012 influenza virus vaccine, unspecified formulation Mio Rogers MD Work Phone: [facility] 09-16-2011 tetanus toxoid, reduced diphtheria toxoid, and acellular pertussis vaccine, adsorbed Oseas BLAS [facility] NEGATED: Highlighted row has not occurred!11-06-2020 influenza virus vaccine, unspecified formulation Oseasshivani BLAS [facility] Payers Date Payer Category Payer Self-pay [id number] 2023 Medicare (Managed Care) [employer]AGE [id number] 2023 Private Health Insurance [id number] 2022 Medicare [id number] 2020 Unknown ANTHEM BLUE CROS S AND BLUE SHIELD ANTHEM MEDIBLUE HMO [id number] 2020-Present [phone] [address] HMO [id number] 2020 Unknown ANTHEM BLUE CROS S AND BLUE SHIELD ANTHEM MEDIBLUE HMO [id number] 2020-Present [phone] [address] [place] [address] HMO [id number] 2018 Medicare [id number] [id number]. [id number] 1972 Unknown [id number] 2.16.840.1.021875.3.579. 2.593 1972 Unknown [id number] 2.16.840.1.680456.3.579. 2.727 1972 Unknown [id number] 2.16.840.1.509819.3.579. 2.727 1972 Unknown [id number] 2.16.840.1.661701.3.579. 2 1972 Unknown [id number] 2.16.840.1.784993.3.579. 2 1972 Unknown [id number] 2.16.840.1.370246.3.579. 2 1972 Unknown [id number] 2.16.840.1.440817.3.579. 2 1972 Unknown [id number] 2.16.840.1.875719.3.579. 2 1972 Unknown [id number] 2..840.1.873122.3.579. 2 1972 Unknown [id number] 2.16.840.1.742477.3.579. 2 1972 Unknown [id number] 2..840.1.501393.3.579. 2 1972 Unknown [id number] 2.16.840.1.232237.3.579. 2 1972 Unknown [id number] 2.16.840.1.656802.3.579. 2 1972 Unknown [id number] 2.16.840.1.075253.3.579. 2 1972 Unknown [id number] .16.840.1.192050.3.579. 2 1972 Unknown [id number] 2.16.840.1.982284.3.579. 2 1972 Unknown [id number] .16.840.1.547060.3.579. 2 1972 Unknown [id number] 2.16.840.1.431048.3.579. 2 1972 Unknown [id number] 2.16.840.1.568824.3.579. 2 1972 Unknown [id number] 2.16.840.1.105591.3.579. 2.1259 1972 Unknown [id number] 2.16.840.1.063716.3.579. 2.1259 1972 Unknown [id number] 2.16.840.1.447184.3.579. 2.727 1972 Unknown [id number] 2.16.840.1.032479.3.579. 2.727 1972 Unknown [id number] 2.16.840.1.641552.3.579. 2.727 1972 Unknown [id number] 2.16.840.1.896346.3.579. 2.727 1972 Unknown [id number] 2.16.840.1.002460.3.579. 2.727 1972 Unknown [id number] 2.16.840.1.118430.3.579. 2.727 1959 Medicare [id number] Unknown [id number] 2.16.840.1.083805.3.579. 2.531 Social History Date Type Detail Facility Start: 09-13-2020 End: 07-21-2023 Tobacco smoking status Never smoked tobacco (finding) [facility] Tobacco smoking status Never [facility] Comment on above: bhupinder Start: 07-11-2022 End: 03-03-2024 Sex Assigned At Female [facility] Start: 09-17-2021 End: 12-15-2024 Alcohol intake Current drinker of alcohol (finding) [facility] Start: 1970 Sex Assigned At Not on file [facility] Start: 12-14-2012 Tobacco use and exposure Smokeless tobacco non-user [facility] Start: 07-11-2022 End: 03-03-2024 History of Social function [facility] Start: 09-02-2020 End: 10-02-2020 Exposure to SARS-CoV-2 (event) Not sure [facility] Start: 12-22-2024 Alcoholic beverage intake Lifetime non-drinker (finding) [facility] ever [facility] Work Phone: Start: 01-04-2025 Sex Female (finding) [facility] Start: 1970 Sex Assigned At Female [facility] Functional Status Date Assessment Result Facility 06-01-2024 Functional Status N/A [facility] 03-23-2024 Functional Status N/A [facility] 07-22-2023 Functional Status N/A [facility] 06-23-2023 Functional Status N/A [facility] 10-30-2022 Functional Status N/A [facility] 09-19-2022 Functional Status N/A [facility] Clinical Notes 02-12-2022 to 01-12-2025 ERON Curtis - 01/12/2025 1:40 PM ERON Regan - 12/22/2024 3:30 PM Patrick Knott MD - 12/15/2024 1:02 PM ESTPatient Patrick Arellano MD - 2024 11:24 AM EDTPatient Instructions Note Date & Type Note Facility 01-12-2025 History of Present illness Narrative Reason for Appointment: Patient ID: Monika Haskins is a 54 y.o. female who presents for Post-op Visit Patient presents today for 2 Week Post Op Follow Up appointment. D&C hysteroscopy with myosure MEDICATIONS Current Outpatient Medications Medication Instructions Estrace [...] Exam Constitutional: Appearance: Normal appearance. She is normal weight. HENT: Head: Normocephalic. Cardiovascular: Rate and Rhythm: Normal rate. Pulses: Normal pulses. Pulmonary: Effort: Pulmonary effort is normal. Breath sounds: Normal breath sounds. Abdominal: Palpations: Abdomen is soft. Musculoskeletal: General: Normal range of motion. Neurological: General: No focal deficit present. Mental Status: She is alert and oriented to person, place, and time. 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 Behavior: Behavior normal. Thought Content: Thought content normal. Judgment: Judgment normal. Vitals and nursing note reviewed. Vitals: Estimated body mass index is 29.29 kg/m as calculated from the following: Height as of 07/30/23: 6' 1 . Weight as of 12/22/24: 222 lb. BP: No LMP recorded. (Menstrual status: No Periods). ASSESSMENT & PLAN ICD-10-CM 1. Postoperative follow-up Z09 Post Op Follow Up: Patient presents today for a postop follow up after having a D&C Hysteroscopy performed at [facility] with Dr. Agosto. Pathology results was reviewed with the patient in great detail and all restrictions have been lifted. 01/13/25 Patient also states she would like to start back on estradiol or something for mood swings and urinary incontinence. After talking with DR Agosto, pt is contacted and discussion about use of hormones orally with past medical history of brain tumor discussed. Pt agrees to try vaginal estrace cream for one month and will schedule telehealth to discuss how she is tolerating Follow Up: Patient is to return to the office for annual exam unless needed otherwise. Documented by ERON Curtis on behalf of: ERON Curtis documented in this encounter [facility] 12-22-2024 History of Present illness Narrative Reason [...] nursing note reviewed. Exam conducted with a salesperson wigs present. Vitals: Estimated body mass index is [...] DO documented in this encounter [facility] 12-15-2024 Note HNO ID: [id number] Author: PATRICK BUSTAMANTE MD Service: ? Author [...] Clinician(s) performing the injections: Patrick Bustamante MD Vice President Integrated: Leidy Rico LPN and Danielle Snyder RN [...] 100 units / 2 ml LOT #: [id number] Expiration Date: Month: 4 Year: 27 The injections were (more content not included)... [facility] 12-15-2024 History of Present illness Narrative [...] Clinician(s) performing the injections: Patrick Bustamante MD Vice President Integrated: Leidy Rico LPN and Danielle Snyder RN [...] 100 units / 2 ml LOT #: [id number] Expiration Date: Month: 4 Year: 27 The [...] Patrick Bustamante MD documented in this encounter [facility] 12-14-2024 Instructions Patrick Bustamante MD - 12/14/2024 12:10 PM EST You have received botulinum toxin injections today. The skin around the site of injections should be monitored for a couple of days. If redness or swelling occur, the skin should be examined by a health personal care aid to rule out infection. If you experience pain in the muscles injected over the next few days, you can take Tylenol to control the pain (unless contra-indicated). Please call our office at [phone] with any questions or concerns. Patrick Bustamante MD documented in this encounter [facility] 2024 Note HNO ID: [id number] Author: PATRICK BUSTAMANTE MD Service: ? Author [...] Clinician(s) performing the injections: Patrick Bustamante MD Vice President Integrated: Leidy Rico LPN and Danielle Snyder RN [...] 100 units / 2 ml LOT #: [id number] Expiration Date: Month: 12 Year: 26 The injections were well tolerated. Minimal bleeding occurred at the injection sites. Assessment: (G81.14) Spastic (more content not included)... [facility] 2024 History of Present illness Narrative [...] Clinician(s) performing the injections: Patrick Bustamante MD Vice President Integrated: Leidy Rico LPN and Danielle Snyder RN [...] 100 units / 2 ml LOT #: [id number] Expiration Date: Month: 12 Year: 28 The [...] Note copied to Mio Rogers MD via Adictiz. Time spent with patient: 40 mn. Patrick Bustamante MD documented in this encounter [facility] 09-07-2024 Instructions Patrick Bustamante MD - 09/07/2024 10:17 AM EDT You have received botulinum toxin injections today. The skin around the site of injections should be monitored for a couple of days. If redness or swelling occur, the skin should be examined by a health personal care aid to rule out infection. If you experience pain in the muscles injected over the next few days, you can take Tylenol to control the pain (unless contra-indicated). Please call our office at [phone] with any questions or concerns. Patrick Bustamante MD documented in this encounter [facility] 06-01-2024 Hospital Discharge instructions Patient Education [...] (electrical nerve stimulation). ?For women, using a medical office receptionist assistant to prevent urine leaks. This is [...] right after experiencing incontinence. General instructions Take vomg-cle-xszziwm and prescription medicines only as told by [...] important. Where to find more information National [place] of Diabetes and Digestive and Kidney Diseases: www.niddk.nih.gov [place] [employer] Association: www.urologyhealth.org Contact a health care [...] provider. Document Revised: 06/15/2021 Document Reviewed: 06/15/2021 Via Novus Patient Education 2022 [employer]. 06/01/2024 15:02:52 Overactive Bladder, Adult Overactive [...] your health care provider. General instructions Take myha-oss-jnfoqxl and prescription medicines only as told by [...] provider. Document Revised: 07/30/2021 Document Reviewed: 07/30/2021 Via Novus Patient Education 2022 [employer]. Follow Up Care 03/23/2024 15:00:41 With:DIANA Case APRN, Elo Michel, AURELIO, URL Address: When: Unknown Comments:1 year [facility] 06-01-2024 Note Patient Education Obstetrics and [...] health care provider. General instructions ? Take ujhe-prd-ofjmupy and prescription medicines only as told by [...] your health care (more content not included)... [facility] 05-26-2024 Note HNO ID: [id number] Author: PATRICK BUSTAMANTE MD Service: ? Author [...] Clinician(s) performing the injections: Patrick Bustamante MD Vice President Integrated: Leidy Rico LPN and Danielle Snyder RN [...] 100 units / 2 ml LOT #: [id number] Expiration Date: Month: 8 Year: 26 The injections were well tolerated. Minimal bleeding occurred at the (more content not included)... [facility] 05-26-2024 History of Present illness Narrative [...] - 11/12/2023 Clinician(s) performing the injections: Patrick Bustamatne MD Vice President Integrated: Leidy Rico LPN and Danielle Snyder RN [...] 100 units / 2 ml LOT #: [id number] Expiration Date: Month: 8 Year: 26 The [...] Note copied to Mio Rogers MD via Adictiz. Time spent with patient: 45 mn. Patrick Bustamante MD documented in this encounter [facility] 05-25-2024 Instructions Patrick Bustamante MD - 05/25/2024 5:14 PM EDT You have received botulinum toxin injections today. The skin around the site of injections should be monitored for a couple of days. If redness or swelling occur, the skin should be examined by a health personal care aid to rule out infection. If you experience pain in the muscles injected over the next few days, you can take Tylenol to control the pain (unless contra-indicated). Please call our office at [phone] with any questions or concerns. Patrick Bustamante MD documented in this encounter [facility] 05-19-2024 Telephone encounter Note [employer] approved till 11/16; no units [place] [facility] Work Phone: 05-19-2024 Miscellaneous Notes [employer] approved till 11/16; no units [place] documented in this encounter [facility] 05-07-2024 Telephone encounter Note Monika Haskins is calling Mio Rogers MD today regarding Lead Producer - Other ([place] Form ) Patient has been identified by name and birthdate. Patient called to enquire if we have received the [place] Form faxed to us minutes ago, I checked and informed her yes. She requested it to be filled and faxed back over today. The fax was forwarded over to the [facility] nurses. Patient can be reached at: [phone] (home) Blanca Lee May 07, 2024 [facility] 05-07-2024 Miscellaneous Notes Monika Haskins is calling Mio Rogers MD today regarding Lead Producer - Other ([place] Form ) Patient has been identified by name and birthdate. Patient called to enquire if we have received the [place] Form faxed to us minutes ago, I checked and informed her yes. She requested it to be filled and faxed back over today. The fax was forwarded over to the [facility] nurses. Patient can be reached at: [phone] (home) Blanca Lee May 07, 2024 documented in this encounter [facility] 04-16-2024 Nurse Note Additional intake questions: Has the patient had fever, nausea, vomiting, diarrhea, constipation, fatigue for > 1 week? No Does the patient have a decreased appetite? No Does patient want to see a High Voltage Electrician? No (yes to any of above refer patient to schedulers for dietitian appointment) ) Does patient have any new or increased numbness or tingling of extremities? No Is patient interested in fertility information? No Does patient need any prescription refills? No Does patient have an advanced directive in place? no [facility] 04-16-2024 Nurse Note Additional intake questions: Has the patient had fever, nausea, vomiting, diarrhea, constipation, fatigue for > 1 week? No Does the patient have a decreased appetite? No Does patient want to see a High Voltage Electrician? No (yes to any of above refer patient to schedulers for dietitian appointment) ) Does patient have any new or increased numbness or tingling of extremities? No Is patient interested in fertility information? No Does patient need any prescription refills? No Does patient have an advanced directive in place? no documented in this encounter [facility] 04-16-2024 History of Present illness Narrative Images from the original note were not included. (Elements copied from prior note dated 09/17/2021, have been reviewed and updated where appropriate, and all reflect current assessment and medical decision-making during today's encounter, 04/16/2024) [facility] Monika Haskins is a 53 year old female patient. 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 Overall she is doing well. Left sided [...] No history of dysuria, frequency or incontinence BUNDLE WRAPPER: Negative for abnormal vaginal bleeding, abnormal vaginal [...] 0.00 08/16/2013 0.00 02/22/2013 0.00 01/25/2013 0.00 [place] Free, Serum (mg/L) Date Value 12/16/2022 27.6 [...] to 11/05/2018. ASSESSMENT: 1. AL amyloidoma of AIRLINE COUNTER AGENT. PLAN: 1. MRI is stable. Clinically doing [...] Mio Lynch MD, MPH PGY-IV Hematology/Oncology Fellow [facility] STAFF PHYSICIAN NOTE OF PERSONAL INVOLVEMENT IN CARE I have reviewed the progress note obtained and documented by the fellow and I personally participated in the fung components. I have discussed the case and management of the patient's care. The following comments revise or confirm relevant fung components of their note. IMPRESSION: This is a 53 year old female who presents with AIRLINE COUNTER AGENT amyloidoma. PLAN: continue observation with imaging and labs at regular intervals. MRI today stable. Ongoing rehabiliation medicine evaluations as well. Mio Rogers MD documented in this encounter [facility] 04-16-2024 Note HNO ID: [id number] Author: MIO ROGERS MD Service: ? Author Type: Physician Type: Progress Notes Filed: 04/20/2024 10:14 Note Text: (Elements copied from prior note dated 09/17/2021, have been reviewed and updated where appropriate, and all reflect current assessment and medical decision-making during today's encounter, 04/16/2024) [facility] Monika Haskins is a 53 year old female patient. 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 Overall she is doing well. Left sided [...] No history of dysuria, frequency or incontinence BUNDLE WRAPPER: Negative for abnormal vaginal bleeding, abnormal vaginal [...] BMI 32.96 kg/m? (more content not included)... [facility] 04-16-2024 Note HNO ID: [id number] Author: CAMILLA BRITT RN Service: Nursing Author [...] DATE: April 16, 2024 TIME: 1:52 PM [facility] 04-16-2024 History of Present illness Narrative [...] PATIENT PRESENTS WITH AN IMPLANTABLE OR ATTACHED TEST CENTER ADMINISTRATOR: No RADIOLOGY DEPARTMENT: MR; Exam(s) Completed: Head: Routine Brain PERIPHERAL IV DATA: Site assessment: Clean,Dry and Intact, Site disposition Left in for next appointment SIGNED BY: ELIA Argueta) April 16, 2024 2:35 PM documented in this encounter [facility] 04-16-2024 Note HNO ID: [id number] Author: SEDA ARCEO RT(R) Service: Radiology Author [...] PATIENT PRESENTS WITH AN IMPLANTABLE OR ATTACHED TEST CENTER ADMINISTRATOR: No RADIOLOGY DEPARTMENT: MR; Exam(s) Completed: Head: Routine Brain PERIPHERAL IV DATA: Site assessment: Clean,Dry and Intact, Site disposition Left in for next appointment SIGNED BY: RT Ellie(R) April 16, 2024 2:35 PM [facility] 03-23-2024 Hospital Discharge instructions Patient Education [...] (electrical nerve stimulation). ?For women, using a medical office receptionist assistant to prevent urine leaks. This is [...] right after experiencing incontinence. General instructions Take helj-otj-jqtfiaq and prescription medicines only as told by [...] important. Where to find more information National [place] of Diabetes and Digestive and Kidney Diseases: www.niddk.nih.gov [place] U[employer] Association: www.urologyhealth.org Contact a health care [...] provider. Document Revised: 06/15/2021 Document Reviewed: 06/15/2021 Via Novus Patient Education 2022 [employer]. 03/23/2024 15:13:47 Overactive Bladder, Adult Overactive [...] your health care provider. General instructions Take nqki-koh-bksyoqq and prescription medicines only as told by [...] provider. Document Revised: 07/30/2021 Document Reviewed: 07/30/2021 Via Novus Patient Education 2022 [employer]. 03/23/2024 15:13:46 Kegel Exercises Kegel Exercises [...] provider. Document Revised: 03/21/2022 Document Reviewed: 03/21/2022 Via Novus Patient Education 2022 [employer]. Follow Up Care 03/05/2024 10:45:48 With:DIANA Case APRN, AURELIO Del Castillo, URL Address: When: Unknown Comments:8 wks w/ PVR [facility] 02-18-2024 Note HNO ID: [id number] Author: PATRICK BUSTAMANTE MD Service: ? Author [...] Clinician(s) performing the injections: Patrick Bustamante MD Vice President Integrated: Leidy Rico LPN, Danielle Snyder RN and [...] 100 units / 2 ml LOT #: [id number] Expiration Date: Month: 5 Year: 26 The injections were well tolerated. Minimal bleeding occurred at the injection sites. 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 [facility] 01-21-2024 Note HNO ID: [id number] Author: PATRICK BUSTAMANTE MD Service: ? Author [...] cognition, language or prosody on interview. Formal COAL TOWER OPERATOR testing was not performed today. Cranial Nerves: [...] Pinprick was not (more content not included)... [facility] 01-21-2024 History of Present illness Narrative [...] She is also swimming. Patient Entered [employer] No flowsheet data found. Spasticity NRS 11/12/2023 [...] cognition, language or prosody on interview. Formal COAL TOWER OPERATOR testing was not performed today. Cranial Nerves: [...] Note copied to Mio Rogers MD via Adictiz. Time spent with patient: 40 minutes. More than 50% of the face to face time was dedicated to education and counseling regarding treatment options for spasticity. Patrick Bustamante MD documented in this encounter [facility] 01-21-2024 Instructions Patrick Bustamante MD - 01/21/2024 9:21 AM EST Baclofen 10 mg tablets Take 1 tablet in the morning, afternoon and at bedtime. Contact the office with any questions or concerns ([employer] or [phone]). Patrick Bustamante MD documented in this encounter [facility] 10-27-2023 Miscellaneous Notes The following approved [...] seen 09/03/2023 Next Appointment : 11/12/2023 Tiffany Snatillan documented in this encounter [facility] 09-03-2023 History of Present illness Narrative REFERRAL SOURCE: Mio Rogers [address] [facility] [address] FOLLOWED BY: Erica Mercedes MD REASON FOR CONSULTATION: rehabilitation consult. PRINCIPAL NEUROLOGIC DIAGNOSIS: Tumefactive variant of cerebral amyloid angiopathy HISTORY OF ILLNESS: Date of Onset: 2011 BRIEF NARRATIVE DESCRIBING HISTORY: This 52 year old right handed female was referred by Mio Rogers MD for a spasticity consult. The patient was accompanied by no one. Medical records from [facility] were reviewed. Patient was in her regular [...] had botox injections several years ago at [facility] with good results. She stopped the injections [...] 12/16/2022 Neut% 62.8 12/16/2022 Lymph% 27.8 12/16/2022 Emmet% 7.3 12/16/2022 Eosin% 1.2 09/17/2021 Baso% 0.4 12/16/2022 Abs Neut (ANC) 4.55 12/16/2022 Abs Emmet 0.53 12/16/2022 Abs Eosin 0.10 12/16/2022 Abs [...] sec Cerebellar: There was no dysmetria on uvkcaa-nh-vfaw on the right. She was unable to perform on the left. Ewah-gr-qbor testing was without dysmetria bilaterally. Fine movements [...] Baclofen, Tizanidine and Other CPT Codes: Limbs: 78140, 05203, 41755 and 31809 EMG guidance: 75796 Limb(s) / area(s) injected: Left biceps, triceps, [...] Note copied to Mio Rogers MD via Adictiz. Time spent with patient: 70 minutes. More than 50% of the face to face time was dedicated to education and counseling regarding treatment options for spasticity. Patrick Bustamante MD documented in this encounter [facility] 07-22-2023 Hospital Discharge instructions Patient Education [...] your health care provider. General instructions Take mxft-omg-iavtgva and prescription medicines only as told by [...] provider. Document Revised: 07/30/2021 Document Reviewed: 07/30/2021 Via Novus Patient Education 2022 [employer]. Follow Up Care 06/06/2023 14:34:51 With:LIANNA RIOS PA-C, URL Address: [address] [place] [address] When: Unknown [facility] 07-08-2023 Hospital Discharge instructions Patient Education [...] [facility] [address], [place] [address]- Business (1) When: Unknown Comments:Call for any problems. [facility] 07-08-2023 History of Present illness Narrative The appointment was canceled. documented in this encounter [facility] 06-24-2023 Evaluation + Plan note Future Scheduled TestsMA Mamm Screen w/CAD if perf and 3D Sage 06/24/23 [facility] [place] 12-20-2022 History of Present illness Narrative AMBULATORY TELEPHONE VISIT Monika Haskins has consented to this telephone encounter. Persons Present: patient Chief Complaint/Reason: follow up AL amyloidosis. HPI: Ms. Haskins presents today for follow up of AL amyloidoma of AIRLINE COUNTER AGENT. Stable neurologic symptoms. Data Reviewed: Most recent labs and imaging results. 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 Total Time Spent: 14 minutes Mio Rogers MD documented in this encounter [facility] 12-17-2022 History of Present illness Narrative [...] Mio Rogers MD documented in this encounter [facility] 12-16-2022 History of Present illness Narrative [...] 2022 4:30 PM documented in this encounter [facility] 10-01-2022 Hospital Discharge instructions Patient Education [...] With:Oseas BLAS Address: [facility] [address] , [place] [address]- Business (1) When: Unknown Comments:Keep scheduled appointment [facility] 09-19-2022 Hospital Discharge instructions Follow Up Care 09/19/2022 13:45:23 With:ROOPA FARIAS, Oseas R, URL Address: [facility] [address] [place] [address] When:Within 6 Month(s) Comments:F/U OAB [facility] [place] 07-30-2022 Miscellaneous Notes If pt calls back the form was received and sent to the nurses. Monika Haskins is calling Mio Rogers MD today to check with the office to see if a form from [employer] was received yesterday regarding her medical certification. [...] and birthdate. Pt can be reached at: [phone] (cell) Werner Zimmer Adm Asst July 26, 2022 documented in this encounter [facility] 06-04-2022 Miscellaneous Notes Spoke with patient and advised our office would happy to sign any forms, direct fax number given to patient Patient verbalized understanding Zonia Josue RN Pt called requesting SW information. The following was provided: Precious Hunt [phone] Patient has been identified by name and birthdate. Di Uribe June 04, 2022 Patient calling back to follow-up on forms being completed. I informed patient that Zonia is working on this with SW to see how they can assist. Patient requesting that Dr. Rogers call her back at [phone] Spoke with patient and relayed the following message, per oZnia: I am not sure its appropriate that [...] her. She stated she will call Dr. Delarosa cell if she has to. Monika Haskins is calling Mio Rogers MD today regarding Care Coordination ([employer] Form) Patient has been identified by name and birthdate. Requesting response back: [phone] (home) [phone] (work) [phone] (cell) Pt called requesting if our office can complete the [employer] Assistance Form for her electric bill today or as soon as possible. Pt provided: Email: [email or web address]---Eron morton ID# [id number] PH: [phone] Pt Email: [email or web address] Pt also wanted to see if an [...] June 03, 2022 documented in this encounter [facility] 04-17-2022 Hospital Discharge instructions Patient Education [...] fried and sweet foods. General instructions Take kzio-gbh-udxxepk and prescription medicines only as told by [...] 09/06/2010 Document Revised: 03/02/2020 Document Reviewed: 11/26/2018 ElsePartnerpedia Patient Education 2020 [employer]. Follow Up Care 04/15/2022 13:41:42 With:GABRIEL LUU, LIANNA Rodriguez, URL Address: [address] [place] [address] [phone] When: Unknown [facility] 04-17-2022 Evaluation + Plan note Diagnostic Tests PendingUrine Culture 04/17/22 [facility] 03-05-2022 Hospital Discharge instructions Patient Education 03/05/2022 [...] fried and sweet foods. General instructions Take yhmf-qkr-omqaafd and prescription medicines only as told by [...] 09/06/2010 Document Revised: 03/02/2020 Document Reviewed: 11/26/2018 Via Novus Patient Education 2020 [employer]. Follow Up Care 02/12/2022 10:21:37 With:GABRIEL LUU, LIANNA Rodriguez, URL Address: [address] [place] [address] Business (1) When: only if needed [facility] [place] 02-28-2022 Miscellaneous Notes Done Zonia Josue RN Patient is calling again regarding handicap sticker Monika Haskins is calling Mio Rogers MD today regarding Lead Producer - Other (handicap) Patient has been identified by name and birthdate. Patients handicap sticker is . Can we fill out and email to her. [email or web address] Requesting response back: call on cell [phone] (home) [phone] (work) [phone] (cell) Lakshmi Moseley February 27, 2022 documented in this encounter [facility] 02-12-2022 Hospital Discharge instructions Patient Education [...] degrees. Follow Up Care 02/11/2022 10:26:02 With:Oseas BALS Address: [facility] [address] [place] [address]- Business (1) When:02/26/2022 09:18:40 [facility] Evaluation + Plan note Future Appointments Appointment Date:03/07/2022 11:15:00 AM Scheduled Provider:LIANNA RIOS PA-C Location:[facility] [place] Appointment Type:URO Office Visit [facility] Evaluation + Plan note Future Appointments Appointment Date:09/25/2022 10:30:00 AM Scheduled Provider: Location:[facility] Appointment Type:Urology CALL PAT FT Appointment Date:10/01/2022 10:30:00 AM Scheduled Provider: Location:[facility] Appointment Type:Urology FT Appointment Date:10/23/2022 01:30:00 PM Scheduled Provider:Kelly Avina Location[facility] [place] Appointment Type:URO Office Visit [facility] Evaluation + Plan note Future Appointments Appointment Date:10/23/2022 01:30:00 PM Scheduled Provider:Kelly Avina Location[facility] [place] Appointment Type:URO Office Visit [facility] Evaluation + Plan note Future Appointments Appointment Date:07/01/2023 08:30:00 AM Scheduled Provider: Location:[facility] Appointment Type:Urology CALL PAT FT Appointment Date:07/08/2023 11:00:00 AM Scheduled Provider: Location:[facility] Appointment Type:Urology FT Appointment Date:07/22/2023 01:00:00 PM Scheduled Provider:LIANNA RIOS PA-C [facility] Office Visit Diagnostic Tests PendingPAP [id number] w/ HPV and Genotype rflx 06/24/23 Future Scheduled TestsMA Mamm Screen w/CAD if perf and 3D Sage 06/24/23 [facility] Evaluation + Plan note Future Appointments Appointment Date:07/08/2023 11:00:00 AM Scheduled Provider: Location:[facility] Appointment Type:Urology FT Appointment Date:07/22/2023 01:00:00 PM Scheduled Provider:LIANNA RIOS PA-C Location:[facility] Appointment Type:URO Office Visit Future Scheduled TestsMA Mamm Screen w/CAD if perf and 3D Sage 06/24/23 [facility] Evaluation + Plan note Future Appointments Appointment Date:07/22/2023 01:00:00 PM Scheduled Provider:ILANNA RIOS PA-C Location:[facility] Appointment Type:URO Office Visit Future Scheduled TestsMA Mamm Screen w/CAD if perf and 3D Sage 06/24/23 [facility] Evaluation + Plan note Future Appointments Appointment Date:09/09/2023 11:20:00 AM Scheduled Provider:Ara Michelle Location:[facility] Appointment Type: Open [facility] Evaluation + Plan note Future Appointments Appointment Date:05/18/2024 01:00:00 PM Scheduled Provider:DIANA Case APRN, [place] X [facility] Office Visit Appointment Date:05/25/2024 10:20:00 AM Scheduled Provider:Ara Michelle [facility]FM Open Appointment Date:01/13/2025 09:30:00 AM Scheduled Provider: [facility] Type:FM Medicare Wellness Subsequent [facility] Evaluation + Plan note Future Appointments Appointment Date:06/24/2024 11:20:00 AM Scheduled Provider:Ara Michelle [facility] Appoint[facility] Type:FM Open Appointment Date:01/13/2025 09:30:00 AM Scheduled Provider: Location[facility] Appointment Type:FM Medicare Wellness Subsequent [facility] Evaluation + Plan note Future Appointments Appointment Date:08/26/2024 08:20:00 AM Scheduled Provider:Ara Michelle Location:[facility] Appointment Type:FM Open Appointment Date:01/13/2025 09:30:00 AM Scheduled Provider: Location: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 Brain tumor (HCC) Neoplasm of unspecified nature of brain [facility] Diagnosis Post-menopausal bleeding Postmenopausal bleeding Complex ovarian cyst Uterine mass Other specified symptom associated with female genital organs documented in this encounter [facility] HealthcareEvaluation noteNo assessment information availableOhio[facility] Work Phone: Evaluation note* Diagnosis Postoperative follow-up Follow-up examination, following unspecified surgery documented in this encounter [facility] HealthcareHospital course Narrative No data available for this section [facility] No data available for this section [facility] No data available for this section [facility] Summary Purpose Family History No Family History [...] STEM W/O W/CONTRAST MATERIAL Mio Rogers MD [address] [place] [address] Imaging [place] [address] Referral ID Status Reason Start Date Expiration Date Visits Requested Visits Authorized [id number] Pending Review Auto-Generat ed Referral 04/16/2025 05/16/2025 1 1 Specialty Diagnoses / Procedures Referred By Contac t Referred To Contact MR IMAGING Diagnoses Brain tumor (HCC) AL amyloidosis (HCC) Procedures MRI BRAIN WO/W IVCON MRI BRAIN BRAIN STEM W/O W/CONTRAST MATERIAL Mio Rogers MD [address] [place] [id number] Mr Imaging Referral ID Status Reason Start Date Expiration Date Visits Requested Visits Authorized [id number] Pending Review Auto-Generat ed Referral 12/20/2023 01/19/2024 1 1 Specialty Diagnoses / Procedures Referred By Jason toro Referred To Contact MR IMAGING Diagnoses AL amyloidosis (HCC) Brain tumor (HCC) Procedures MRI BRAIN WO/W IVCON MRI BRAIN BRAIN STEM W/O W/CONTRAST MATERIAL Mansi Gallagher APRN.PROFESSOR OF FORESTRY [address] [place] [id number] Mr Imaging Referral ID Status Reason Start Date Expiration Date V isits Requested Visits Authorized [id number] Closed Auto-Generate d Referral 09/20/2022 10/20/2023 1 1 Additional Source Comments INFORMATION SOURCE (unrecogn ized section and content) DATE CREATED AUTHOR 12/20/2019 [facility] DATE CREATED AUTHOR AUTHOR'S ORGANIZ ATION 08/02/2024 [facility] DATE CREATED AUTHOR AUTHOR'S ORGANIZ ATION 09/04/2024 [facility] DATE CREATED AUTHOR AUTHOR'S ORGANIZ ATION 12/17/2024 [facility] DATE CREATED AUTHOR AUTHOR'S ORGANIZ ATION 01/04/2025 [facility] DATE CREATED AUTHOR AUTHOR'S ORGANIZ ATION 01/14/2025 [facility] DATE CREATED AUTHOR AUTHOR'S ORGANIZ ATION 01/25/2025 [facility] Source Comments (unrecognize d section and content) In the event this informatio n is protected by the Federal Confidentiality of Alcohol and Drug Abuse Patient Records regulations: The Federal rules restrict any use of the information to criminally investigate or prosecute any alcohol or drug abuse patient.[facility] the event this information is protected by the Federal Confidentiality of Alcohol and Drug Abuse Patient Records regulations: The Federal rules restrict any use of the information to criminally investigate or prosecute any alcohol or drug abuse patient.[facility] Hospital[facility] the event this information is protected by the Federal Confidentiality of Alcohol and Drug Abuse Patient Records regulations: The Federal rules restrict any use of the information to criminally investigate or prosecute any alcohol or drug abuse patient.[facility] Hospital[facility] the event this information is protected by the Federal Confidentiality of Alcohol and Drug Abuse Patient Records regulations: The Federal rules restrict any use of the information to criminally investigate or prosecute any alcohol or drug abuse patient.[facility] HospitalIn the event this information is protected by the Federal Confidentiality of Alcohol and Drug Abuse Patient Records regulations: The Federal rules restrict any use of the information to criminally investigate or prosecute any alcohol or drug abuse patient.[facility] HospitalIn the event this information is protected by the Federal Confidentiality of Alcohol and Drug Abuse Patient Records regulations: The Federal rules restrict any use of the information to criminally investigate or prosecute any alcohol or drug abuse patient.[facility] HospitalIn the event this information is protected by the Federal Confidentiality of Alcohol and Drug Abuse Patient Records regulations: The Federal rules restrict any use of the information to criminally investigate or prosecute any alcohol or drug abuse patient.[facility] Hospital[facility] the event this information is protected by the Federal Confidentiality of Alcohol and Drug Abuse Patient Records regulations: The Federal rules restrict any use of the information to criminally investigate or prosecute any alcohol or drug abuse patient.[facility] HospitalIn the event this information is protected by the Federal Confidentiality of Alcohol and Drug Abuse Patient Records regulations: The Federal rules restrict any use of the information to criminally investigate or prosecute any alcohol or drug abuse patient.[facility] HospitalIn the event this information is protected by the Federal Confidentiality of Alcohol and Drug Abuse Patient Records regulations: The Federal rules restrict any use of the information to criminally investigate or prosecute any alcohol or drug abuse patient.[facility] HospitalIn the event this information is protected by the Federal Confidentiality of Alcohol and Drug Abuse Patient Records regulations: The Federal rules restrict any use of the information to criminally investigate or prosecute any alcohol or drug abuse patient.[facility] HospitalIn the event this information is protected by the Federal Confidentiality of Alcohol and Drug Abuse Patient Records regulations: The Federal rules restrict any use of the information to criminally investigate or prosecute any alcohol or drug abuse patient.[facility] HospitalIn the event this information is protected by the Federal Confidentiality of Alcohol and Drug Abuse Patient Records regulations: The Federal rules restrict any use of the information to criminally investigate or prosecute any alcohol or drug abuse patient.[facility] HospitalIn the event this information is protected by the Federal Confidentiality of Alcohol and Drug Abuse Patient Records regulations: The Federal rules restrict any use of the information to criminally investigate or prosecute any alcohol or drug abuse patient.[facility] HospitalIn the event this information is protected by the Federal Confidentiality of Alcohol and Drug Abuse Patient Records regulations: The Federal rules restrict any use of the information to criminally investigate or prosecute any alcohol or drug abuse patient.[facility] HospitalIn the event this information is protected by the Federal Confidentiality of Alcohol and Drug Abuse Patient Records regulations: The Federal rules restrict any use of the information to criminally investigate or prosecute any alcohol or drug abuse patient.[facility] HospitalIn the event this information is protected by the Federal Confidentiality of Alcohol and Drug Abuse Patient Records regulations: The Federal rules restrict any use of the information to criminally investigate or prosecute any alcohol or drug abuse patient.[facility] HospitalIn the event this information is protected by the Federal Confidentiality of Alcohol and Drug Abuse Patient Records regulations: The Federal rules restrict any use of the information to criminally investigate or prosecute any alcohol or drug abuse patient.[facility] HospitalIn the event this information is protected by the Federal Confidentiality of Alcohol and Drug Abuse Patient Records regulations: The Federal rules restrict any use of the information to criminally investigate or prosecute any alcohol or drug abuse patient.[facility] HospitalIn the event this information is protected by the Federal Confidentiality of Alcohol and Drug Abuse Patient Records regulations: The Federal rules restrict any use of the information to criminally investigate or prosecute any alcohol or drug abuse patient.[facility] HospitalIn the event this information is protected by the Federal Confidentiality of Alcohol and Drug Abuse Patient Records regulations: The Federal rules restrict any use of the information to criminally investigate or prosecute any alcohol or drug abuse patient.[facility] HospitalIn the event this information is protected by the Federal Confidentiality of Alcohol and Drug Abuse Patient Records regulations: The Federal rules restrict any use of the information to criminally investigate or prosecute any alcohol or drug abuse patient.[facility] HospitalIn the event this information is protected by the Federal Confidentiality of Alcohol and Drug Abuse Patient Records regulations: The Federal rules restrict any use of the information to criminally investigate or prosecute any alcohol or drug abuse patient.[facility] HospitalIn the event this information is protected by the Federal Confidentiality of Alcohol and Drug Abuse Patient Records regulations: The Federal rules restrict any use of the information to criminally investigate or prosecute any alcohol or drug abuse patient.[facility] HospitalIn the event this information is protected by the Federal Confidentiality of Alcohol and Drug Abuse Patient Records regulations: The Federal rules restrict any use of the information to criminally investigate or prosecute any alcohol or drug abuse patient.[facility] HospitalIn the event this information is protected by the Federal Confidentiality of Alcohol and Drug Abuse Patient Records regulations: The Federal rules restrict any use of the information to criminally investigate or prosecute any alcohol or drug abuse patient.[facility] Reason for Visit (unrecogniz ed section and content) Reason Comments Spasticity Specialty Diagnoses / Procedures Referred By Contac t Referred To Contact [facility] Diagnoses Spasticity due to old stroke Procedures CONSULT TO PHYSICAL MEDICINE AND REHABILITATION OFFICE/OUTPATIENT NEW HIGH MDM 60-74 MINUTES Mio Rogers MD [address] [place] [address] [facility] [place] [address] Referral ID Status Reason Start Date Expiration Date Visits Requested Visits Authorized [id number] Pending Review PCP Requested Referral Auto-Generate d Referral 04/22/2023 04/14/2024 1 1 Reason Comments Lead Producer - Other handicap Reason Comments Care Coordination [employer] Form Reason Comments Lead Producer - Other Question re: oc t's appts Reason Onset Date Comments Refill Request 09/11/2022 Reason Onset Date Comments Refill Request 12/12/2022 Reason Comments Radiology MRI Specialty Diagnoses / Procedures Referred By Contac t Referred To Contact MR IMAGING Diagnoses AL amyloidosis (HCC) Brain tumor (HCC) Procedures MRI BRAIN WO/W IVCON MRI BRAIN BRAIN STEM W/O W/CONTRAST MATERIAL Mansi Gallagher APRN.PROFESSOR OF FORESTRY [address] [place] [address] Mr Imaging Referral ID Status Reason Start Date Expiration Date V isits Requested Visits Authorized [id number] Closed Auto-Generate d Referral 09/20/2022 10/20/2023 1 [...] STEM W/O W/CONTRAST MATERIAL Mio Rogers MD [address] [place] [address] [place] [address] Referral ID Status Reason Start Date Expiration Date Visits Requested Visits Authorized [id number] Authorized Auto-Generat ed Referral 12/24/2023 01/15/2025 1 1 Referral ID Status Reason Start Date Expiration Date V isits Requested Visits Authorized [id number] Closed Auto-Generate d Referral 12/24/2023 01/15/2025 1 1 Reason Comments Lead Producer - Other [place] Franco For Reason Comments Spasticity Botulinum Toxin Injections Specialty Diagnoses / Procedures Referred By Contac t Referred To Contact Neurology / PHYSICAL MEDICINE AND REHAB Diagnoses 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 Procedures BOTULINUM TOXIN A PER 1 UNIT INITIAL J0585 - BOTULINUM TOXIN A UP TO 400 UNITS EVERY 90 DAYS x 1 YEAR FOR SPASTICITY 31610 - CHEMODENERV 1 EXTREMITY 1-4 30173 - CHEMODENERV ADDL EXTREM 1-[place] [address] [place] [address] Patrick Bustamante MD [address] [place] [address] Referral ID Status Reason Start Date Expiration Date V isits Requested Visits Authorized [id number] Authorized 11/12/2023 11/23/2024 99 99 Specialty Diagnoses / Procedures Referred By Jason toro Referred To Contact Neurology / PHYSICAL MEDICINE AND REHAB Diagnoses 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) Procedures BOTULINUM TOXIN A PER 1 UNIT RENEWAL J0585 - BOTULINUM TOXIN A UP TO 400 UNITS EVERY 90 DAYS x 1 YEAR FOR SPASTICITY 05349 - CHEMODENERV 1 EXTREMITY 1-4 46271 - [place]MODENERV [place]TREM 1-4 [place] [address] - CHEMODENERV 1 EXTREM 5/> MUS 97870 EACH ADDITIONAL EXTREMITY, 5 [place] [address] [place] [address] Patrick Bustamante MD [address] [place] [address] Referral ID Status Reason Start Date Expiration Date V isits Requested Visits Authorized [id number] Authorized 12/15/2024 11/23/2025 99 99 Reason Comments post menopausal bleeding Reason Comments Post-op Visit Care Teams (unrecognized sec tion and content) Slitter Service And Setter Relationship Specialty Start Date End Date Erica Mercedes PCP - General Family Practice 11/05/12 [employer] Setter Relationship Specialty Start Date End Date Erica Mercedes PCP - General Family Practice 11/05/12 [employer] Service And Setter Relationship Specialty Start Date End Date Erica Mercedes PCP - General Family Medicine 11/05/12 Slitter Service And Setter Relationship Specialty Start Date End Date Erica Mercedes PCP - General Family Medicine 11/05/12 Slitter Service And Setter Relationship Specialty Start Date End Date Erica Mercedes PCP - General Family Medicine 11/05/12 Slitter Service And Setter Relationship Specialty Start Date End Date Erica Mercedes PCP - General Family Medicine 11/05/12 Slitter Service And Setter Relationship Specialty Start Date End Date Erica Mercedes PCP - General Family Medicine 11/05/12 Slitter Service And Setter Relationship Specialty Start Date End Date Erica Mercedes PCP - General Family Medicine 11/05/12 Slitter Service And Setter Relationship Specialty Start Date End Date Erica Mercedes PCP - General Family Medicine 11/05/12 Slitter Service And Setter Relationship Specialty Start Date End Date Erica Mercedes PCP - General Family Medicine 11/05/12 Sl[employer] Service And Setter Relationship Specialty Start Date End Date Erica Mercedes PCP - General Family Medicine 11/05/12 [place] [address] [place] [address] Specialty Lead Producer Hematology/Oncology 07/25/23 Slitter Service And Setter Relationship Specialty Start Date End Date Erica Mercedes PCP - General Family Medicine 11/05/12 [employer] Service And Setter Relationship Specialty Start Date End Date Erica Mercedes PCP - General Family Medicine 11/05/12 [place] [address] [place] [address] Specialty Lead Producer Hematology/Oncology 07/25/23 Slitter Service And Setter Relationship Specialty Start Date End Date Erica Mercedes PCP - General Family Medicine 11/05/12 [place] [address] [place] [address] Specialty Lead Producer Hematology/Oncology 07/25/23 Slitter Service And Setter Relationship Specialty Start Date End Date Erica Mercedes PCP - General Family Medicine 11/05/12 [place] [address] [place] [address] Specialty Lead Producer Hematology/Oncology 07/25/23 Slitter Service And Setter Relationship Specialty Start Date End Date Erica Mercedes PCP - General Family Medicine 11/05/12 Mitzy Brush, MELVIN [address] [place] [address] Specialty Lead Producer Hematology/Oncology 07/25/23 Slitter Service And Setter Relationship Specialty Start Date End Date Erica Mercedes PCP - General Family Medicine 11/05/12 [place] [address] [place] [id number] Specialty Lead Producer Hematology/Oncology 07/25/23 Slitter Service And Setter Relationship Specialty Start Date End Date Erica Mercedes PCP - General Family Medicine 11/05/12 Mitzy Brush, MELVIN [address] [place] [address] Specialty Lead Producer Hematology/Oncology 07/25/23 Slitter Service And Setter Relationship Specialty Start Date End Date Erica Mercedes PCP - General Family Medicine 11/05/12 Mitzy Brush, [address] [address] [place] [address] Specialty Lead Producer Hematology/Oncology 07/25/23 Slitter Service And Setter Relationship Specialty Start Date End Date Erica Mercedes PCP - General Family Medicine 11/05/12 [place] [address] [place], [place] [id number] Specialty Lead Producer Hematology/Oncology 07/25/23 Slitter Service And Setter Relationship Specialty Start Date End Date Erica Mercedes PCP - General Family Medicine 11/05/12 Mitzy Brush, [address] [address] [place] [address] Specialty Lead Producer Hematology/Oncology 07/25/23 Slitter Service And Setter Relationship Specialty Start Date End Date Erica Mercedes Tyesha PCP - General Family Medicine 11/05/12 Mitzy Brush, MELVIN [address] [place] [address] Specialty Lead Producer Hematology/Oncology 07/25/23 Slitter Service And Setter Relationship Specialty Start Date End Date Erica Mercedes PCP - General Family Medicine 11/05/12 Mitzy Brush, MELVIN [address] [place] [address] Specialty Lead Producer Hematology/Oncology 07/25/23 Team Status: Inactive Member Role Status Dates Carter Agosto DO Attending Provider Active Start : December 31, 2024 End: December 31, 2024 Goals (unrecognized section and content) Goals may be documented in a n alternate section FOR RECORDS PERTAINING TO PATIENTS WHO ARE [...] BE BASED ON THE PRIMARY CLINICAL RECORDS. [employer] [facility]. provides no warranty or guarantee of the accuracy or completeness of information in this document.
[2025-01-25 11:21] LABS: Glucometer 114 mg/dL (74-106)
[2025-01-25 11:31] LABS: Basophils Percent Auto 0.4 % (0.2-2.0); Eosinophils Percent Auto 0.4 % (0.9-7.0); Immature Granulocytes Abs Auto 0.03 10^3/uL (0.00-0.03); Immature Granulocytes Pct Auto 0.3 % (0.0-0.5); Lymphocytes Absolute Auto 1.1 10^3/uL (1.2-3.8); Lymphocytes Percent Auto 10.2 % (20.5-60.0); Mean Corpuscular HGB Conc 32.6 g/dL (29.9-35.2); Mean Corpuscular Hemoglobin 28.2 pg (26.7-34.0); Mean Corpuscular Volume 86.7 fL (81.0-99.0); Monocytes Absolute Auto 0.7 10^3/uL (0.3-0.8); Monocytes Percent Auto 6.3 % (1.7-12.0); Neutrophils Absolute Auto 9.2 10^3/uL (1.4-6.5); Neutrophils Percent Auto 82.4 % (43.0-75.0); Platelet Count 239 10^3/uL (150-450); Red Blood Count 4.96 10^6/uL (4.20-5.40); White Blood Count 11.2 10^3/uL (4.0-11.0)
--- NOTE | 2025-01-25 11:38 | PC.NURSE ---
pt states she always has left sided weakness d/t a brain tumor she's had for the last 13 years. L facial droop started yesterday morning around [id number]. denies any confusion. do3es not appear to have any slurred speech or swallowing issues. around the same time, L ear is painful and externally swollen and red. was placed on ATB and steroid yesterday.
[2025-01-25 11:49] LABS: Alanine Aminotransferase 9 U/L (14-59); Albumin Level 3.7 g/dL (3.4-5.0); Alkaline Phosphatase 57 U/L (46-116); Anion Gap 11.9; Aspartate Amino Transferase 10 U/L (15-37); BUN Creatinine Ratio 14.3; Bilirubin Total 0.3 mg/dL (0.2-1.0); Calcium 9.4 mg/dL (8.5-10.1); Carbon Dioxide 25.6 mmol/L (21.0-32.0); Chloride 108 mmol/L (98-107); Estimated GFR (African America >60 (>=60 mL/min/1.73m^2); Estimated GFR (Non-African Ame 60 (>=60 mL/min/1.73m^2); Globulin 3.8 g/dL; Glucose 116 mg/dL (74-106); Potassium 3.5 mmol/L (3.5-5.1); Sodium 142 mmol/L (136-145); Total Protein 7.5 g/dL (6.4-8.2)
[2025-01-25 11:51] LABS: Troponin I High Sensitivity 4.9 pg/mL (4.0-51.3)
[2025-01-25 11:54] LABS: INR 1.04; Partial Thromboplastin Time 25.9 sec (22.3-36.2)
== END 2025-01-25 13:50 | disposition home or self-care (01) ==
PROVIDERS: Emergency Provider Emergency Medicine; PCP Nurse Practitioner
DX: G51.0 Bell's palsy (principal); H66.92 Otitis media, unspecified, left ear; H60.392 Other infective otitis externa, left ear; Z86.73 Personal history of transient ischemic attack (TIA), and cerebral infarction without residual deficits; D33.2 Benign neoplasm of brain, unspecified; Z90.49 Acquired absence of other specified parts of digestive tract; Z79.899 Other long term (current) drug therapy; M21.372 Foot drop, left foot
CPT/HCPCS: 36415; 70450; 70496; 70498; 71045; 80053; 82948; 84484; 85025; 85610; 85730; 93005; 99285; Q9967

== ENCOUNTER 2025-10-04 14:25 | Outpatient (OUT) | payer MEDICARE, SELFPAY ==
--- OUTSIDE RECORDS SUMMARY | 2025-09-29 10:10 | XMS_ITS | Encounter Summary ---
Author Organization [facility] Address [address] [place] [address] Care Team Providers Care Reconditioner Name Role Phone Ara Vanegas NP Unavailable Reason for Visit * ReasonCommentsDiscuss HRT Encounter Details DateTypeDepartmentCare Team (Latest Contact Info)Qscrjhsnsia29/06/2025 10:10 AM ESTOffice Visit [facility] [address] [employer] [place] [phone] Carter Agosto DO [address] [facility] [address] [place], [facility]11 Hormonal disorder; Hot flashes; Mood changes; Right axillary swelling; Encounter for screening mammogram for malignant neoplasm of breast Social History Tobacco UseTypesPacks/DayYears UsedDateSmoking Tobacco: NeverAlcohol UseStandard Drinks/WeekCommentsNever0 (1 standard drink = 0.6 oz pure alcohol) CommentsNoSex and Gender InformationValueDate RecordedSex Assigned at BirthNot on fileLegal VmuCkxhlc92/15/2023 6:51 PM EDTGender IdentityNot on fileSexual OrientationNot on filedocumented as of this encounter Last Filed Vital Signs Vital SignReadingTime TakenCommentsBlood Bhiprqhg092/7409/29/2025 10:28 AM EST Pulse--Temperature--Respiratory Rate--Oxygen Saturation--Inhaled Oxygen Concentration--Rcprbd130 kg (228 lb 8 oz)09/29/2025 10:28 AM ESTHeight--Body Mass Index31.8710 8:51 AM EDTdocumented in this encounter Progress Notes * Margarita Celis, OPEN HEARTH MELTER - 09/29/2025 10:10 AM EST Reason for [...] DAY, # 60 cap(s), Refills(s) 0, Pharmacy: [facility] STORE [id number], 180, cm, 03/22/25 13:45:00 EDT, Height/Length Dosing, [...] Adult BMI 33.0-33.9 kg/sq m 09/05/2025 Oligohydramnios ([facility]-HCC) 09/05/2025 Overactive bladder 09/05/2025 Placental insufficiency ([facility]CC) 09/05/2025 Postinfective urethral stricture in female 09/05/2025 [...] nursing note reviewed. Exam conducted with a candy mixer present. Vitals: Estimated body mass index is [...] Plan of Treatment DateTypeDepartmentCare Team (Latest Contact Info)Dptmtbeduqv16/04/2025 11:10 AM ESTOffice Visit [facility] [address] [facility] [place] [address] Carter Agosto DO [address] [facility] [place] [address] NameTypePriorityAssociated DiagnosesOrder ScheduleEstradiolLabRoutine Hormonal disorder Hot flashes [...] Hormonal disorder Hot flashes Mood changes Ordered: 09/29/20252918L2SmeYzzwxom Hormonal disorder Hot flashes Mood changes Expected: 09/29/2025 (Approximate), Expires: 09/29/2026TESTOSTERONE, FREELab Routine Hormonal disorder Hot flashes Mood changes Ordered: 09/29/2025Testosterone, free, totalLabRoutine Hormonal disorder Hot flashes Mood changes Ordered: 09/29/2025Hemoglobin H7dFerUbjecfj Hormonal disorder Hot flashes Mood changes Ordered: [...] Team MemberRelationshipSpecialtyStart DateEnd Date Ara Vanegas NP [address] [place] [address] Referring PhysicianFamily Ysqzqhsa70/8/25documented as of this encounter
--- OUTSIDE RECORDS SUMMARY | 2025-10-04 14:30 | XMS_ITS | Clinical Summary ---
Author Organization [facility] Address [address] [place] [address] Care Team Providers Care Sheep Sorter Name Role Phone Ara Vanegas SUPERVISOR [employer]ING [employer] Unavailable Allergies Active AllergyReactionsCriticalityNoted DateCommentsBee VenomSwellingHigh 12/22/2024MorphineHives,XtkhIdo8011/24/2015 Pt had a morphine injection and broke out in hives, with itching Medications MedicationSigDispense QuantityRefillsLast FilledStart DateEnd DateStatus Estrace 1 MG tablet 10/25/2024ctive baclofen (Lioresal) 10 MG tablet Take 10 mg by mouth in the morning.08/10/2025tive gabapentin (Neurontin) 300 MG capsule See Instructions, TAKE 1 CAPSULE BY MOUTH TWICE A DAY, # 60 cap(s), Refills(s) 0, Pharmacy: [facility] STORE [id number], 180, cm, 03/22/25 13:45:00 EDT, Height/Length Dosing, 100.4, kg, 03/22/25 13:45:00 EDT, Weight Ugkrqk065Active phentermine 37.5 MG capsule 37.5 mg07/08/2024ctive valACYclovir (Valtrex) 1 g tablet Take 1 g by mouth03/19/2024ctive Gemtesa 75 MG tablet Take 75 mg by mouth03/23/2024ctive onabotulinumtoxinA (Botox) 100 units injection Inject as directed 1 (one) timeActive azithromycin (Zithromax) 250 MG tablet TAKE 2 TABLETS BY MOUTH TODAY, THEN TAKE 1 TABLET DAILY FOR 4 DAYS DIRECTED 5Active ciprofloxacin-dexAMETHasone (CiproDEX) otic suspension PLACE 10 DROPS INTO AFFECTED EAR(S) TWICE A DAY FOR 7 DAYSActive erythromycin (Romycin) 5 MG/GM ophthalmic ointment APPLY TO AFFECTED EYE BEFORE BEDTIME EACH DAY5Active predniSONE (Deltasone) 10 MG tablet TAKE 3 TABS DAILY X3 DAYS, 2 TABS DAILY X3 DAYS, 1 TAB DAILY X3 DAYS DIRECTED 5Active Estradiol 0.01 % cream APPLY 1/2 APPLICATOR VAGINALLY DAILY FOR 2 WEEKS THEN TWICE WEEKLY THEREAFTER. 5Active phentermine (Adipex-P) 37.5 MG tablet Take 37.5 mg by mouth Daily5Active venlafaxine XR (Effexor XR) 37.5 MG 24 hr capsule Indications:Hormonal disorder,Hot flashes,Mood changesTake 1 capsule (37.5 mg) by mouth Daily Do not crush or chew. 30 capsule 5Active cephalexin (Keflex) 500 MG capsule Indications:Right axillary swellingTake 1 capsule (500 mg) by mouth in the morning and 1 capsule (500 mg) in the evening and 1 capsule(500 mg) before bedtime. Do all this for 10 days. 30 capsule 5Active sertraline (Zoloft) 25 MG tablet Take 25 mg by mouthDiscontinued(Therapy completed) Active Problems ProblemNoted DateDiagnosed DateBell's palsy09/05/20254837Abstdnzwah84/13/2025reast cancer ysolacraz97/13/2025ongestion of nasal sinus09/05/20251417Ueidn49/13/2025 Depressive phuolyhc22/13/2025 Overview (09/05/2025): Outside Source Comment: Comment on above: added per 03/07/2025 query response. Ear pain, left09/05/2025Elevated WBCs13720Vzjdsoz10/13/2025Excessive dietary caloric kgwssr5009/05/2025Fluid level behind tympanic membrane of left ear 09/05/2025History of brain ddelbdgr75/13/2025 Overview (09/05/2025): Added per Earl Vanegas query response, added per outpatient CDI policy. History of gestational zscmdonh93/13/2025Insulin arqileswsk80/13/2025 Intracranial tumor09/05/2025hronic otitis media09/05/2025Microhematuria 09/05/2025Moderate episode of recurrent major depressive xzpvacdo93/13/2025 Overview (09/05/2025): Noted by MERISSA Cote [facility] last documented on [id number] Non-hzuptm9409/05/2025dult BMI 33.0-33.9 kg/sq m1Oligohydramnios ([facility])09/05/2025Overactive szvjnof3009/05/2025Placental insufficiency ([facility]-HCC) 09/05/2025 Overview (09/05/2025): GRADE 2 PLACENTA Postinfective urethral stricture in jauvhf5409/05/2025Recurrent oral herpes simplex iaqutcibl70/13/2025Skin xpbiuviml11/13/2025Spastic hemiplegia affecting left nondominant side09/05/2025 Overview (09/05/2025): Noted by [facility] last documented on 20241215 Staph xbkmojlie01/13/2025Uterine pijinipep62/13/2025UTI uieexdpu77/13/2025 Gaobweb5710/02/2017Dental hxgcqtcak77/19/2016Lower urinary tract infectious xafgfpw0411/30/2014Lack of eyfevr8406/22/2014Nausea and wrjqkjev29/02/2014Cellulitis 07/27/2013URI (upper respiratory infection)03/15/2013bnormality of gait 02/17/20136859Zkdehzniuah34/21/2013 Overview (09/05/2025): Documented on 09/17/2021 Iikbrv0112/10/2012 Encounters DateTypeDepartmentCare ThbbCcijndbduua88/06/2025 10:10 AM ESTOffice Visit [facility] [address] [place] [address] [place] [phone] Carter Agosto DO Hormonal disorder; Hot flashes; Mood changes; Right axillary swelling; Encounter for screening mammogram for malignant neoplasm of crojux5609/29/2025 Bamboo flowsheet [facility] [address] [place] [address] [place] [address] Carter Agosto DO 09/28/20257781Rquftr37/22/2025 3:00 PM EDTClinical Support [facility] [address] [facility] [address] [place] [address] Marlene Arias CCC-A Plugged feeling in ear, left (Primary Dx); Benign paroxysmal positional vertigo, left09/14/2025amboo flowsheet [facility] [address] [facility] [address] [place] [address] Marlene Arias CCC-A 09/12/2025Telephone [facility] [address] [facility] [address] [place] [address] Mely Pichardo MD wants referral sent to her y eddshxpdd87/14/2025 8:40 AM EDTOffice Visit [facility] [address] [facility] [address] [place] [address] Mely Pichardo MD Ear fullness, left (Primary Dx); 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; BPPV (benign paroxysmal positional vertigo), left; ETD (Eustachian tube dysfunction), xzlydkjee53/14/2025amb flowsheet [facility] [address] [facility] [address] [place] [address] Mely Pichardo MD 09/06/2025Travelfrom Last 3 Months Immunizations ImmunizationAdministration DatesNext DueInfluenza, Widfgguyvan25/22/2024, 09/05/2021,09/24/2013,01/03/2013Influenza, injectable, quadrivalent, preservative free10/08/2023,09/17/2021,09/21/2019,09/19/2014Tdap1 Family History Medical HistoryRelationNameCommentsHeart failureFatherdennisDiabetesMaternal GrandfatherrobertRelationNameStatusCommentsFatherdennisDeceasedMaternal GrandfatherrobertAliveMotherAlive Social History Tobacco UseTypesPacks/DayYears UsedDateSmoking Tobacco: NeverAlcohol UseStandard Drinks/WeekCommentsNever0 (1 standard drink = 0.6 oz pure alcohol) CommentsNoSex and Gender InformationValueDate RecordedSex Assigned at BirthNot on fileLegal BtiLiztub19/15/2023 6:51 PM EDTGender IdentityNot on fileSexual OrientationNot on file Last Filed Vital Signs Vital SignReadingTime TakenCommentsBlood Xpzgdqnp553/7409/29/2025 10:28 AM EST Uihtm415109/06/2025 8:51 AM EDTTemperature--Respiratory Rate--Oxygen Saturation-- Inhaled Oxygen Concentration--Ymfqxy977 kg (228 lb 8 oz)09/29/2025 10:28 AM EST Zzwcbv219.3 cm (5' 11 )09/06/2025 8:51 AM EDTBody Mass Index31.8709/06/2025 8:51 AM EDT Plan of Treatment DateTypeDepartmentCare Team (Latest Contact Info)Ehtutecpjdp05/04/2025 11:10 AM ESTOffice Visit [facility] [address] [facility] [place] [address] Carter Agosto DO [address] [facility] [place] [address] Health MaintenanceDue DateLast DoneCommentsCT Qsxcpopapgau1972Colonoscopy 1972Colorectal Cancer Epjgdwpqs1972FIT-DNA1972FIT1972 FOBT09/08/19728275Pwkuzwlsuyphq1972HPV/Hqpvxz2409/08/20023631Fmdlfxoaj12/16/2012 COVID-19 Vaccine ( season)509/, 07/23/2021Influenza Vaccine (#1)510/, 10/08/2023, 09/17/2021, Additional history existsCervical Cancer Zqjnwwggb34/01/2026Pap Smear Pneumococcal Vaccine: Pediatrics (0 to 5 Years) and At-Risk Patients (6 to 64 Years)Aged OutNo longer eligible based on patient's age to complete this topic Procedures Procedure NamePriorityDate/TimeAssociated DiagnosisCommentsPAP SMEARRoutine 06/24/2023 12:00 AM EDTfrom Last 3 Months or Most Recently Relevant to Health Maintenance Results * Pap Smear (06/24/2023 12:00 AM EDT)Specimen (Source)Anatomical Location / LateralityCollection Method / VolumeCollection TimeReceived TimeSwabCervical swab / Unknown Narrative Authorizing ProviderResult TypeResult StatusHistorical Provider MDLAB CYTOLOGY ORDERABLESFinal ResultPerforming OrganizationAddressCity/State/ZIP CodePhone Number EXTERNAL LAB from Last 3 Months or Most Recently Relevant to Health Maintenance Insurance * Guarantor: Taylor Haskins TypeRelation to PatientDate of BirthPhoneBilling AddressPersonal/MkotaaVyom[id number] [place] [address] Care Teams Team MemberRelationshipSpecialtyStart DateEnd Date Ara Vanegas NP [address] [place] [address] Referring PhysicianFamily Mielmfvc42/8/25
--- OUTSIDE RECORDS SUMMARY | 2025-10-04 14:30 | XMS_ITS | Clinical Summary ---
Author Organization [facility] Address [address] [place] [address] Care Team Providers Care Invoice Machine Operator Name Role Phone Erica Ramírez Primary Care Provider Mitzy Brush RN Unavailable [phone] Allergies Active AllergyReactionsCriticalityNoted MicqLbdbmjldOtvjydntPotmx65/01/2016 Pt had a morphine injection and broke out in hives, with itching Medications * This document contains information received from the source organization and may not represent a complete record from that organization. MedicationSigDispense QuantityRefillsLast FilledStart DateEnd DateStatus onabotulinum toxin type A (BOTOX) 100 unit solr Injected every 3 months for spasticity as directed.3Active Estradiol (ESTRACE) 0.5 mg tablet Take 1 tablet by mouth once daily. 30 tablet 1104Active valACYclovir (VALTREX) 1 gram tablet Take 1,000 mg by mouth once daily.Active baclofen 10 mg tablet Take 1 tablet by mouth once daily.5Active Active Problems Patient Care Coordination No te Formatting of this note migh t be different from the original. HPI: Ms. Vazquez is a 45yo RHF with a PMHx of amyloidoma which was dx with sterotactic brain bx about 3yrs ago s/p chemotherapy x 1 yr (cyclophosphomide) and s/p decadron x 1 yr who presents after a fall. LKW was 11:30 pm on 11/23/15. Patient was walking upstairs at her friends place and usually needs support or uses the railing but this time tried to walk up herself and lost her balance as the left side of her body started spasming again. She fell quite hard per her and her friend and also tumbled over at the end, bumping the right side of her face and the left side of her head. She fell approximately 12 steps backward. She had some nausea and 8/10 dull NGUYEN after the fall, additionally family and friends were concerned with the intensity of the fall and thus she was taken to the hospital. Neck was immobilized by EMS and CT Head and C-spine done. Images are not available. CTH showed petechial hemorrhages in the right parietal lobe in the area of the tumor. No mass effect, edema or midline shift. C-spine was normal and patient was cleared. On arrival patient feels that she is at baseline except for some dull NGUYEN on the left side of her head and right side of her face - NGUYEN is about a 5/10. No nausea, no vomiting, no blurry vision, no confusion. No h/o seizures. Tumor history: 2010:4 yrs ago she started developing left arm spasms and left foot drop. Initially misdiagnosed for a year with dystonia. 2011: MRI brain was done which revealed a mass in the right parietal lobe, white matter adjacent tothe lateral ventricle. Nov 2012: Sterotactic brain bx done which revealed amyloid deposition with associated gliosis and chronic inflammation. They [place] red stain showed evidence of globular and angiocentric deposits of amyloid material. Dx: Amyloidoma. rx 1 yr cyclophosphamide rx 1 yr dexamethasone At baseline minimal to no function of the left arm with intermittent spasm. Gets Botox with Dr. Hunter, on Tizanidine 4mg qHS and Baclofen 20mg q6h. Has an AFO which she wears in the left foot and left foot inverted and spastic. Baseline diminished sensation to finetouch, pin prick on the left. has a past medical history of Pneumothorax; Infection in abdomen (HCC); Deep venous thrombosis (HCC); Hypertension; and Foot drop. has past surgical history that includes cholecystectomy (1999) and , classic, in-hosp care(Sep 14, 2011). reports that she has never smoked. She has never used smokeless tobacco. She reports that she drinks alcohol. She reports that she does not use illicit drugs. ICU Admission Date: November 24, 2015 Bleed Date: 11/23/15 Operative Date: NA Principle Diagnosis and Co-morbidities: as above Active Consults: NSGY Hospital Course Significant for: Assessment: Code Status: Full code Neuro: Reason for NeuroICU Admission Neurochecks:q4h neurochecks BP Parameters: <140 Imaging Plan: -rCT 5:10 AM since patients CD not available. - MRI brain WO ordered with tumor protocol Cervical Spine Negative Rehab Planning Therapies: BATTERY HAND PT OT At risk for seizures BEM: Pending Seizure PPx: Pain, Agitation, Delirium Monitoring Pain Control: Sedation: Delirium: Withdrawal precautions: Toxicology Screens: pending CV: Active Problems, relevant PMH BP Parameters: Antihypertensives: Labetalol/hydralazine prn, nicardipine gtt if needed Pressors: Telemetry EKG: pending Trend cardiac enzymes ECHO: pending Lipids: pending Statin therapy: pending Antiplatelets: Anticoagulants: Rate control: Volume Status: monitor I/O 24h, net wt change this admission Pulm: Active Problems, Relevant PMH none Airway Details: Maintain sats > 94% Renal/Electrolytes/: Active problems, relevant PMH Renal Function: Admit BUN/Cr, monitor UOP. Trend CKs, urine/serum myoglobin if marked elevation. Serum/urine OSM, Na, Urea, Uric acid to evaluate hyponatremia. Electrolytes: Admit BMP iCa Mg Phos. Electrolyte repletion per protocol GI/Nutrition: \Active Problems, relevant PMH Nutrition: Diet regular Liver function: Admit LFTs. GI PPx: H2B/PPI not indicated Bowel regimen: colace, dulcolax prn. 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 Adrenal function: Random/AM Cortisol ID: Active Infections, Immunosuppression Afebrile, no leukocytosis. Monitor Temp / WBC curves. No other SIRS criteria. Monitor for s/sx source of infection. Procalcitonin, Lactate, sVO2 trend, UA, Blood Cx, CXR/miniBAL if spikes. Antibiotics:none Nasal swab now and QTues Heme/VTE: Active Problems, relevant PMH Admit H/H, Plt, coags. Monitor. Goal: H/H > 7/21, Plt > 100, INR < 1.4 VTE PPx: Thigh/knee high IPCs, LMWH/SQH- at 48 hrs or post MRI. Skin/Ext: ICU care. Survey for/document DTI/Decubitus POA. Lines/Drains/Access: PIV Drips: none Activity: OOB. PT and OT Disposition/Family Updates: ICU--> SDU / floor, family update as available, needs NICU routine procedures universal consent ProblemNoted DateDiagnosed DateScreening for endocrine ajihppng39/31/2018Fatigue 10/02/2017Dental bocuenmvf92/19/2016UTI (lower urinary tract infection) 11/30/2014Lack of bpcfeo5606/22/2014Nausea and ytizlhvh10/02/2014Cellulitis 07/27/2013URI (upper respiratory infection)03/15/2013bnormality of gait 02/17/20131089Afqncftpigf66/21/7396Kyegbp24/17/2013Other conditions of brain(348.89) 11/09/2012 Encounters DateTypeDepartmentCare KgeeQptritaiseo71/07/0294Rivywu68/06/2025 Patient Msg Medical Records [address] [place] [address] Erica Ramírez Important Notice for Our Medicare Patients Regarding Appointment Scheduling 09/27/2025 Get Medical Advice Rehab Medicine [address] [facility] [place] [address] Haim Bustamante MD Pnpuqzzezvov72/17/2025 11:15 AM EDTOffice Visit Rehab Medicine [address] [facility] [place] [place] [address] Haim Bustamante MD 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); Brain tumor (HCC); Reis's palsy08/10/20259942Ipbbki22/21/2025 Get Medical Advice Rehab Medicine [address] [facility] [place] [id number] Haim Bustamante MD botoxfrom Last 3 Months Immunizations ImmunizationAdministration DatesNext Dueinfluenza (IIV4) vaccine, age 6 mo - 64 yr, quadrivalent, PF (AFLURIA, FLUARIX, FLULAVAL, FLUZONE)09/17/2021,09/21/2019, 09/19/2014influenza vaccine, unspecified eshamnhdozr98/11/2012,11/26/2012 Family History Medical HistoryRelationCommentsHeartFatherRelationStatusCommentsFatherPaternal GrandfatherDeceasedaneurysm Social History Tobacco UseTypesPacks/DayYears UsedDateSmoking Tobacco: NeverSmokeless Tobacco: Never Tobacco Cessation:Counseling Given: No Alcohol UseStandard Drinks/WeekCommentsYes0 (1 standard drink = 0.6 oz pure alcohol)very very rarelyPHQ-2AnswerDate RecordedPHQ-2 lfsya6335Area Deprivation IndexAnswerDate RecordedNational Score (1-100), lower number is lower llmn090609/03/2023State Score (1-10), lower number is lower ryfz813 Data from: https://www.neighborhoodatlas.[facility].edu/. Last address used for [address] [place] [address]CommentsNoSex and Gender Information ValueDate RecordedSex Assigned at BirthNot on fileLegal KblNtiwnx26/13/2012 1:50 PM ESTGender IdentityNot on fileSexual OrientationNot on fileOccupationIndustry Job Start DateJob End DateunemployedNot on fileNot on fileNot on file Last Filed Vital Signs Vital SignReadingTime TakenCommentsBlood Zsqgjbjm072/7912/15/2024 1:08 PM EST Ntnoj537212/15/2024 1:08 PM CFNIyrhanpfzgd13.1 ??C (98.7 ??F)04/16/2024 4:08 PM EDTRespiratory Jnsn011404/16/2024 4:08 PM EDTOxygen Gvowtiilat92%04/16/2024 4:08 PM EDTInhaled Oxygen Concentration--Kldgmm975.2 kg (236 lb 5.3 oz)04/16/2024 4:08 PM IKWXbaexl515.3 cm (5' 11 )04/16/2024 4:08 PM EDTBody Mass Index32.96 04/16/2024 4:08 PM EDT Plan of Treatment DateTypeDepartmentCare Team (Latest Contact Info)Cfmpykwegen21/13/2025 10:[address] [facility] Neurology [address] [place] [address] Isra Corona MD [address] [place] [address] Brain tumor (HCC) [D49.6]11/09/2025 1:00 PM ESTOffice Visit Rehab Medicine [address] [place] [address] Haim Bustamante MD [address] [place] [address] Return in about 3 months (around 11/09/2025) for Repeat Botox injections in 3 months with Dianna in [place].Health MaintenanceDue DateLast DoneCommentsAnxiety Ocbxbtnaa94/16/1990Depression Exekudnus03/16/1990HIV Mqzdhiapz91/16/1990 Hepatitis C Knvzilufe47/16/1990Hepatitis B Vaccine (1 of 3 - 19+ 3-dose series) 1991Cervical Cancer Bxuatgimi28/16/1993Mammogram Srifnkdig32/16/2012CT Huwmhvbdhmlv91/16/2017Cologuard (FIT-DNA)09/08/20175626Yvgqjuawwlc41/16/2017 Colorectal Cancer Vbtixwzbi19/16/2017Fecal Occult Blood2017Lipid Screening 09/08/20177543Cxaooxyqkxvhv50/16/2017DTaP,Tdap,Td Vaccine (2 - Td or Tdap)09/16/2021 09/16/2011Pneumococcal Vaccine: 50+ (1 of 1 - PCV)2022hingrix Vaccine (1 of 2)2022[facility] Annual Wellness Visit5Covid-19 Vaccine (3 - 2024- season)5008/13/2021, 07/23/2021Influenza Vaccine (#1)510/, 10/08/2023, 09/17/2021, Additional history exists Diabetes Zvqzofcsk12/, 12/16/2022, 09/17/2021, Additional history exists Procedures Procedure NamePriorityDate/TimeAssociated DiagnosisCommentsCOMPREHENSIVE METABOLIC ZBSQILamiawr46/24/2024 3:47 PM EDT [place] amyloidosis (HCC) from Last 3 Months or Most Recently Relevant to Health Maintenance Results * COMP METABOLIC PANEL (04/16/2024 3:47 PM EDT)ComponentValueRef RangeTest MethodAnalysis TimePerformed AtPathologist SignatureProtein, Total7.66.3 - 8.0 g/dL04/16/2024 4:20 PM [facility]TC[facility] LABAlbumin4.43.9 - 4.9 g/dL 04/16/2024 4:20 PM EDTCANC[facility] LABCalcium, Total9.38.5 - 10.2 mg/dL04/16/2024 4:20 PM EDTCANC[facility] LABBilirubin, Total0.30.2 - 1.3 mg/dL04/16/2024 4:20 PM EDTCANC[facility] LABAlkaline Ookakrecvyh40 34 - 123 U/L04/16/2024 4:20 PM EDTC[facility] BBBKHT6358 - 35 U/L 04/16/2024 4:20 PM EDTCANC[facility] ENDXAM54 - 38 U/L04/16/2024 4:20 PM EDTC[facility] FUPVvfiwhl8069 - 99 mg/dL04/16/2024 4:20 PM EDT [facility] LABComment: The [place] Diabetes Association (ADA) provides guidance for cutoff values for fasting glucose andrandom glucose. The ADA defines fasting as no [...] Standards of Medical Care in Diabetes 2016, [place] Diabetes Association. Diabetes Care. 2016.39(Suppl 1). PJL599 - 21 mg/dL04/16/2024 4:20 PM EDTCANC[facility] LABCreatinine0.60 0.58 - 0.96 mg/dL04/16/2024 4:20 PM EDTC[facility] KDJXzvqiv823161 - 144 mmol/L04/16/2024 4:20 PM EDTC[facility] LABPotassium4.13.7 - 5.1 mmol/L04/16/2024 4:20 PM EDTC[facility] EOLQtgsxgxz91584 - 105 mmol/L 04/16/2024 4:20 PM EDTC[facility] HYGYI09078 - 30 mmol/L04/16/2024 4:20 PM EDTC[facility] LABAnion Irn438 - 18 mmol/L04/16/2024 4:20 PM EDTCANC[facility] LABEstimated Glomerular Filtration Sews865>=60 mL/min/1.73m 04/16/2024 4:20 PM EDTCANCER [facility] LABComment:Estimated Glomerular Filtration Rate (eGFR) is calculated using the 2020 CKD-EPI creatinine equation. This equation utilizes serum creatinine, sex, and age as parameters. The creatinine assay has traceable calibration to isotope dilution-mass spectrometry. Refer to KDIGO guidelines for clinical interpretation. In patients with unstable renal function, e.g. those with acute kidney injury, the eGFRmay not accurately reflect actual GFR.Specimen (Source)Anatomical Location / LateralityCollection Method / VolumeCollection TimeReceived TimeBloodBLOOD SPECIMEN / UnknownVenipuncture / Ohloeot9504/16/2024 3:47 PM EDT04/16/2024 3:51 PM EDT Narrative Authorizing ProviderResult TypeResult StatusMio Rogers MDLABORATORYFinal ResultPerforming OrganizationAddressCity/State/ZIP CodePhone Number [facility] [address] [address], from Last 3 Months or Most Recently Relevant to Health Maintenance Insurance * Guarantor: Taylor Haskins DAccount TypeRelation to PatientDate of BirthPhoneBilling AddressPersonal/SaktgbLdzh1970 [id number] [address] * Guarantor: Taylor Haskins TypeRelation to PatientDate of BirthPhoneBilling KdmomztXcggngslMurq1970 [id number] [place] [address] * Guarantor: Taylor Haskins TypeRelation to PatientDate of BirthPhoneBilling AddressSelf KixNzet8809/08/1970 [address] [place] [address] Care Teams Team MemberRelationshipSpecialtyStart DateEnd Erica Ramírez PCP - GeneralFamily Qcsvetxy74/13/12 [place] [address] [place] [address] Specialty Care CoordinatorHematology/Oncology07/25/23
--- OUTSIDE RECORDS SUMMARY | 2025-10-04 14:30 | XMS_ITS | Encounter Summary ---
Author Organization [facility] Address [address] [place] [address] Care Team Providers Care Negative Turner Apprentice Name Role Phone GuilhermeAra MAT ROLLER Unavailable Encounter Details DateTypeDepartmentCare Team (Latest Contact Info)Xvfzzrjpxhq56/06/2025amboo flowsheet [facility]OM[facility] [address] [place] [address] Carter Agosto DO [address] [place] [address] Dr [place], [facility]11 Social History Tobacco UseTypesPacks/DayYears UsedDateSmoking Tobacco: NeverAlcohol UseStandard Drinks/WeekCommentsNever0 (1 standard drink = 0.6 oz pure alcohol) CommentsNoSex and Gender InformationValueDate RecordedSex Assigned at BirthNot on fileLegal NvaUxcjhx95/15/2023 6:51 PM EDTGender IdentityNot on fileSexual OrientationNot on filedocumented as of this encounter Plan of Treatment DateTypeDepartmentCare Team (Latest Contact Info)Tzucrevimrp11/04/2025 11:10 AM ESTOffice Visit NOMNeha MUSTA[facility] [address] [place] [address] Carter Agosto DO [address] [facility] [address] [place], [place] [id number] documented as of this encounter Visit Diagnoses Not on filedocumented in this encounter Care Teams Team MemberRelationshipSpecialtyStart DateEnd Date Ara Vanegas NP [address] [place] [address] Referring PhysicianFamily Simypplw89/8/25documented as of this encounter
--- OUTSIDE RECORDS SUMMARY | 2025-10-04 14:30 | XMS_ITS | Encounter Summary ---
Author Organization [facility] Address [address] [place] [address] Care Team Providers Care Lime Kiln Operator Name Role Phone Ara Vanegas ELECTRICIAN SUPERVISOR AIRPLANE Unavailable Encounter Details DateTypeDepartmentCare Team (Latest Contact Info)Borpagxirjd43/05/2025Travel Social History Tobacco UseTypesPacks/DayYears UsedDateSmoking Tobacco: NeverAlcohol UseStandard Drinks/WeekCommentsNever0 (1 standard drink = 0.6 oz pure alcohol) CommentsNoSex and Gender InformationValueDate RecordedSex Assigned at BirthNot on fileLegal JygErhkvw93/15/2023 6:51 PM EDTGender IdentityNot on fileSexual OrientationNot on filedocumented as of this encounter Plan of Treatment DateTypeDepartmentCare Team (Latest Contact Info)Tpvagayefmu92/04/2025 11:10 AM ESTOffice Visit [facility] [place] [facility] [address] [place] [address] Carter Agosto DO [address] [facility] [place] [address] documented as of this encounter Visit Diagnoses Not on filedocumented in this encounter Care Teams Team MemberRelationshipSpecialtyStart DateEnd Date Ara Vanegas NP [address] [place] [address] Referring PhysicianFamily Glrsddud00/8/25documented as of this encounter
--- OUTSIDE RECORDS SUMMARY | 2025-10-04 14:31 | XMS_ITS | Patient Health Record ---
Author Organization [facility] es Address [address] [facility] [place] [address] Care Team Providers Care Environmental Inspector Name Role Phone Dr. Sergio Reyes Primary Care Provider Reason For Referral No Information Medications Medication SIG (Take, Route, Frequency, Duration) Notes Start Date End Date Status PreviDent 5000 Booster Plus 1.1 % Paste as direc coretta Dental 2ActiveIbuprofen 800 MG Tablet1 tablet with food or milk as needed Orally Three times a day2ActiveIbuprofen 800 MG Tablet1 tablet with food or milk as needed Orally Three times a day2Active Plan Of Treatment No Information Insurance Providers Payer Name Payer Address Payer Phone Subscriber Number Group Number Insured Name Patient Relationship to Insured Coverage Start Date Coverage End Date [facility] PPO MEDICARE ADVANTAGE [address] [address] [place] [address] [id number] MONIKA RAMON Self - patient is the insured 2
--- OUTSIDE RECORDS SUMMARY | 2025-10-04 14:31 | XMS_ITS | Encounter Summary ---
Author Organization [facility] Address [address] [place] [address] Care Team Providers Care Outreach Representative Name Role Phone Erica Ramírez Primary Care Provider Mitzy Brush RN Unavailable [phone] Source Comments In the event this information is protected by the Federal Confidentiality of Alcohol and Drug AbusePatient Records regulations: The Federal rules restrict any use of the information to criminally investigate or prosecute any alcohol or drug abuse patient.[facility] Encounter Details DateTypeDepartmentCare Team (Latest Contact Info)Ynwuvguuefy59/07/2025Travel Social History Tobacco UseTypesPacks/DayYears UsedDateSmoking Tobacco: NeverSmokeless Tobacco: NeverAlcohol UseStandard Drinks/WeekCommentsYes0 (1 standard drink = 0.6 oz pure alcohol)very very rarelyPHQ-2AnswerDate RecordedPHQ-2 npybl1885Area Deprivation IndexAnswerDate RecordedNational Score (1-100), lower number is lower hafr212909/03/2023State Score (1-10), lower number is lower vkfe799 Data from: https://www.neighborhoodatlas.medicine.[facility].edu/. Last address used for [address]/11/2023CommentsNoSex and Gender Information ValueDate RecordedSex Assigned at BirthNot on fileLegal JqyBnyzas37/13/2012 1:50 PM ESTGender IdentityNot on fileSexual OrientationNot on fileOccupationIndustry Job Start DateJob End DateunemployedNot on fileNot on fileNot on filedocumented as of this encounter Functional Status * Are you deaf or do you have serious difficulty hearing?AnswerDate of QfqaulzbzvOfimbbCc55/26/2015 1:19 PM Whitney Pitts (Rn), RN * Are you blind or do you have serious difficulty seeing, even when wearing glasses?AnswerDate of GkkordhbhuUiyditYi40/26/2015 1:19 PM Whitney Pitts (Rn), RN * Do you have serious difficulty walking or climbing stairs?AnswerDate of QqjmfczbhcGkjflbXju06/26/2015 1:19 PM Whitney Pitts (Rn), RN * Do you have difficulty dressing or bathing?AnswerDate of AssessmentAuthorYes 05/19/2015 1:19 PM Whitney Pitts (Rn), RN * Because of a physical, mental, or emotional condition, do you have difficulty doing errands alone such as visiting a doctor's office or shopping?AnswerDate of DtgwxwbascXsshtfJfg09/26/2015 1:19 PM Whitney Pitts (Rn), RN documented as of this encounter Mental Status * Because of a physical, mental, or emotional condition, do you have serious difficulty concentrating, remembering, or making decisions?AnswerEntry Date PtvuokAm29/26/2015 1:19 PM Whitney Pitts (Rn), RN documented in this encounter Plan of Treatment DateTypeDepartmentCare Team (Latest Contact Info)Arzthdlsxkp67/13/2025 10:00 AM [facility] Neurology [address] [place] [phone] Isra Corona MD [address] [place] [address] Brain tumor (HCC) [D49.6]11/09/2025 1:00 PM ESTOffice Visit Rehab Medicine [address] [place], [place] [address] Haim Bustamante MD [address] [facility] [place] [address] Return in about 3 months (around 11/09/2025) for Repeat Botox injections in 3 months with Dianna in [place].documented as of this encounter Visit Diagnoses Not on filedocumented in this encounter Care Teams Team MemberRelationshipSpecialtyStart DateEnd Date Erica Ramírez PCP - GeneralFamily Rmvdffoo04/13/12 [place] [address] [place], [place] [phone] Specialty Care CoordinatorHematology/Oncology07/25/23documented as of this encounter
--- OUTSIDE RECORDS SUMMARY | 2025-10-04 14:31 | XMS_ITS | Encounter Summary ---
Author Organization [facility] Address [address] [place] [address] Care Team Providers [employer] Director Name Role Phone Erica Ramírez Primary Care Provider Mitzy Brush RN Unavailable [phone] Source Comments In the event this information is protected by the Federal Confidentiality of Alcohol and Drug AbusePatient Records regulations: The Federal rules restrict any use of the information to criminally investigate or prosecute any alcohol or drug abuse patient.[facility] Encounter Details DateTypeDepartmentCare Team (Latest Contact Info)Gfzpcpulixi22/04/2025 Get Medical Advice Rehab Medicine [address] [place] [address] Haim Bustamante MD [address] [place] [address] Appointmentc Social History Tobacco UseTypesPacks/DayYears UsedDateSmoking Tobacco: NeverSmokeless Tobacco: NeverAlcohol UseStandard Drinks/WeekCommentsYes0 (1 standard drink = 0.6 oz pure alcohol)very very rarelyPHQ-2AnswerDate RecordedPHQ-2 [id number] Deprivation IndexAnswerDate RecordedNational Score (1-100), lower number is lower ndis750609/03/2023State Score (1-10), lower number is lower shgn414 Data from: https://www.neighborhoodatlas.medicine.[facility]/. Last address used for [id number] 463CommentsNoSex and Gender Information ValueDate RecordedSex Assigned at BirthNot on fileLegal CpjKxmykw20/13/2012 1:50 PM ESTGender IdentityNot on fileSexual OrientationNot on fileOccupationIndustry Job Start DateJob End DateunemployedNot on fileNot on fileNot on filedocumented as of this encounter Functional Status * Are you deaf or do you have serious difficulty hearing?AnswerDate of QlrfaotoiiAesuibJc27/26/2015 1:19 PM Whitney Pitts (Rn), RN * Are you blind or do you have serious difficulty seeing, even when wearing glasses?AnswerDate of JcbogkxtrnOpigpbWj40/26/2015 1:19 PM Whitney Pitts (Rn), RN * Do you have serious difficulty walking or climbing stairs?AnswerDate of ZpgdxkskliXrhymzFgo24/26/2015 1:19 PM Wihtney Pitts (Rn), RN * Do you have difficulty dressing or bathing?AnswerDate of AssessmentAuthorYes 05/19/2015 1:19 PM Whitney Pitts (Rn), RN * Because of a physical, mental, or emotional condition, do you have difficulty doing errands alone such as visiting a doctor's office or shopping?AnswerDate of KlkvhtaiurPziuzoZty25/26/2015 1:19 PM Whitney Pitts (Rn), RN documented as of this encounter Mental Status * Because of a physical, mental, or emotional condition, do you have serious difficulty concentrating, remembering, or making decisions?AnswerEntry Date NgnwvcWy93/26/2015 1:19 PM Whitney Pitts (Rn), RN documented in this encounter Plan of Treatment DateTypeDepartmentCare Team (Latest Contact Info)Zdjyxjddhle99/13/2025 10:[address] [facility] Neurology [address] [place] [address] Isra Corona MD [address] [place] [address] Brain tumor (HCC) [D49.6]11/09/2025 1:00 PM ESTOffice Visit Rehab Medicine [address] [place] [address] Haim Bustamante MD [address] [place] [address] Return in about 3 months (around 11/09/2025) for Repeat Botox injections in 3 months with Dianna in [place].documented as of this encounter Visit Diagnoses Not on filedocumented in this encounter Care Teams Team MemberRelationshipSpecialtyStart DateEnd Date Erica Ramírez PCP - GeneralFamily Dgebsfhq23/13/12 [place] [address] [place] [address] Specialty Care CoordinatorHematology/Oncology07/25/23documented as of this encounter
--- OUTSIDE RECORDS SUMMARY | 2025-10-04 14:31 | XMS_ITS | Encounter Summary ---
Author Organization [facility] Address [address] [place] [address] Care Team Providers Care Stain Sprayer Name Role Phone Erica Ramírez Primary Care Provider Mitzy Brush RN Unavailable [phone] Source Comments In the event this information is protected by the Federal Confidentiality of Alcohol and Drug AbusePatient Records regulations: The Federal rules restrict any use of the information to criminally investigate or prosecute any alcohol or drug abuse patient.[facility] Encounter Details DateTypeDepartmentCare Team (Latest Contact Info)Lassqahjeeb48/06/2025 Patient Msg Medical Records [address] [place] [address] Erica Ramírez [address] [place] [address] Important Notice for Our Medicare Patients Regarding Appointment Scheduling Social History Tobacco UseTypesPacks/DayYears UsedDateSmoking Tobacco: NeverSmokeless Tobacco: NeverAlcohol UseStandard Drinks/WeekCommentsYes0 (1 standard drink = 0.6 oz pure alcohol)very very rarelyPHQ-2AnswerDate RecordedPHQ-2 [id number] Deprivation IndexAnswerDate RecordedNational Score (1-100), lower number is lower thsa360909/03/2023State Score (1-10), lower number is lower asle252 Data from: https://www.neighborhoodatlas.medicine.[facility]/. Last address used for [id number]CommentsNoSex and Gender Information ValueDate RecordedSex Assigned at BirthNot on fileLegal DztLsegkq97/13/2012 1:50 PM ESTGender IdentityNot on fileSexual OrientationNot on fileOccupationIndustry Job Start DateJob End DateunemployedNot on fileNot on fileNot on filedocumented as of this encounter Functional Status * Are you deaf or do you have serious difficulty hearing?AnswerDate of XbakspcaqvRixkemZg73/26/2015 1:19 PM Whitney Pitts (Rn), RN * Are you blind or do you have serious difficulty seeing, even when wearing glasses?AnswerDate of LckpbxuefcVytfduFy62/26/2015 1:19 PM Whitney Pitts (Rn), RN * Do you have serious difficulty walking or climbing stairs?AnswerDate of UrcjfnqynzSxyclcYjt84/26/2015 1:19 PM Whitney Pitts (Rn), RN * Do you have difficulty dressing or bathing?AnswerDate of AssessmentAuthorYes 05/19/2015 1:19 PM Whitney Pitts (Rn), RN * Because of a physical, mental, or emotional condition, do you have difficulty doing errands alone such as visiting a doctor's office or shopping?AnswerDate of TznmfadunoYpegeaSju10/26/2015 1:19 PM Whitney Pitts (Rn), RN documented as of this encounter Mental Status * Because of a physical, mental, or emotional condition, do you have serious difficulty concentrating, remembering, or making decisions?AnswerEntry Date WpplsvYk84/26/2015 1:19 PM Whitney Pitts (Rn), RN documented in this encounter Plan of Treatment DateTypeDepartmentCare Team (Latest Contact Info)Amvrheyzhkc27/13/2025 10:00 [facility] [address] [place] [address] Isra Corona MD [address] [place] [address] Brain tumor (HCC) [D49.6]11/09/2025 1:00 PM ESTOffice Visit Rehab Medicine [address] [place] [address] Haim Bustamante MD [address] [place], [place] [address] Return in about 3 months (around 11/09/2025) for Repeat Botox injections in 3 months with Dianna in [place].documented as of this encounter Visit Diagnoses Not on filedocumented in this encounter Care Teams Team MemberRelationshipSpecialtyStart DateEnd Date Erica Ramírez PCP - GeneralFamily Hlnyjvaj77/13/12 [place] [address] [place] [address] Specialty Care CoordinatorHematology/Oncology07/25/23documented as of this encounter
--- OUTSIDE RECORDS SUMMARY | 2025-10-04 14:33 | XMS_ITS | CCD ---
Author Organization [facility] Care Team Providers Care Director Of Vital Statistics Name Role Phone MISC, DOCTOR Primary Care Unavailable NICOLA JOHNSON Admitting Unavailable NICOLA JOHNSON Attending Unavailable NICOLA JOHNSON Consulting Unavailable YAMILETH LONGO Consulting Unavailable TEREZA RAMÍREZ Consulting Unavailable Kelley Gómez Primary Care Physician Erica Mercedes Primary Care Provider Erica Mercedes Primary Care Provider Erica Mercedes Primary Care Provider Ara Vanegas Primary Care Physician [phone] Gonsalo CHARLES, Mitzy Unavailable [phone] Erica Mercedes Primary Care Provider Jackie Pop V Unavailable Unavailable Unavailable Primary Care Provider UnavailCarter Hill DO Attending Provider Carter Agosto Attending Unavailable Carter Agosto Admitting Unavailable PATRICK BUSTAMANTE Attending Unavailable PATRICK BUSTAMANTE Referring Unavailable ERICA MERCEDES Primary Care Unava ilable PATRICK BUSTAMANTE Attending Unavailable PATRICK BUSTAMANTE Referring Unavailable ERICA MERCEDES Primary Care Unava ilable PATRICK BUSTAMANTE Attending Unavailable PATRICK BUSTAMANTE Referring Unavailable ERICA MERCEDES Primary Care Unava ilable Guilherme, NEUROLOGY MANAGER Ara Cote Attending Unavailable Oseas BLAS Attending Unavailable LIANNA RIOS Attending Unavailable Guilherme, NEUROLOGY MANAGER Ara Cote Admitting Unavailable Guilherme, NEUROLOGY MANAGER Ara Cote Attending Unavailable Guilherme, NEUROLOGY MANAGER Ara L Attending Unavailable Guilherme, NEUROLOGY MANAGER Ara L Attending Unavailable Guilherme, NEUROLOGY MANAGER Ara L Attending Unavailable Guilherme, NEUROLOGY MANAGER Ara L Attending Unavailable Guilherme, NEUROLOGY MANAGER Ara L Attending Unavailable Guilherme, NEUROLOGY MANAGER Ara L Attending Unavailable Guilherme, NEUROLOGY MANAGER Ara L Attending Unavailable Guilherme STAMPING MILL TENDER, Ara Unavailable Guilherme, Ara L Attending Unavailable Guilherme, Ara L Attending Unavailable Guilherme, Ara L Attending Unavailable Guilherme, Ara L Attending Unavailable Guilherme, Ara L Attending Unavailable Guilherme, Ara L Attending Unavailable Guilherme, Ara L Attending Unavailable GABRIEL, LIANNA E Attending Unavailable GABRIEL, LIANNA E Attending Unavailable GABRIEL, LIANNA E Attending Unavailable BLAS, Oseas R Attending Unavailable BLAS, Oseas R Admitting Unavailable BLAS, Oseas R Attending Unavailable BLAS, Oseas R Referring Unavailable Guilherme, Ara L Attending Unavailable Guilherme, Ara L Admitting Unavailable MAMI, KELLEY Attending Unavailable MAMI, KELLEY Attending Unavailable TIMMISESSENCE Attending Unavailable IFEOMA, MARLENE Cruz Attending Unavailable SURENDRACARTER Mckinney Attending Unavailable Allergies Allergy ClassificationReported Allergen(s)Allergy TypeDate of OnsetReaction(s) FacilityOpioid Agonists (1 source)MorphineDrug Skfukmz50-53-5547[facility] (5 sources)Morphine; Translations: [MORPHINE]Drug Jkknbjw88-01-0433Cmt [facility] Rep[facility] (20 sources)Morphine; Translations: [morphine]Drug Rqgbspv60-46-4880Vxsonzpg of skin (disorder), Hives, [facility] (12 sources)Bee/Wasp/Ant venom; Translations: [Bee Stings]Propensity to adverse reactions to substanceSwelling (finding)[facility] (14 sources)Honey bee venomPropensity to adverse -[id number] Medications Current Medications MedicationDrug Class(es)DatesSig (Normalized)Sig (Original)0.5 ML tirzepatide 10 MG/ML Auto-Injector [Mounjaro] (3 sources)Start: 78-05-4912kxcnbp 5 mg by subcutaneous injection every week Mounjaro 5 mg/0.5 mL subcutaneous solution 5 mg, SubCutaneous, qWeek, # 4 EA, Refills(s) 2, Pharmacy: [id number], 178, cm, 02/25/24 11:11:00 EDT, Height/Length Dosing, 109.8, kg, 02/25/24 11:11:00 EDT, Weight Dosing Start Date: 02/25/24 Status: Ordered0.5 ML tirzepatide 30 MG/ML Auto-Injector [Mounjaro] (4 sources)Start: 50-21-1032pgyatf 15 mg by subcutaneous injection every week Mounjaro 15 mg/0.5 mL subcutaneous solution 15 mg, SubCutaneous, qWeek, Refills(s) 0 Start Date: 06/24/23 Status: Orderedacetaminophen 650 mg oral tablet (7 sources)Start: 94-37-7298Fdpyvyl 650 mg, Oral, PRN as needed for pain, Refills(s) 0 Start Date: 01/14/24 Status: Ordered Repeat number: 1acetaminophen 325 mg / HYDROcodone bitartrate 5 mg oral tablet (6 sources)Opioid AgonistStart: 64-64-2076Sapuu 325 mg-5 mg oral tablet 1 tab(s), Oral, q6hr for pain, 10 tab(s), Refill(s) 0, Pain, [id number], 180, cm, 12/14/24 10:04:00 EST, Height/Length Dosing, 101, kg, 12/14/24 10:04:00 EST, Weight Dosing Start Date: 01/26/25 Status: Ordered Quantity: 10.0 Unit: tab(s) Repeat number: 1 End: 66-02-5889NBKWZavvqtk-acetaminophen ([place]) 5-325 MG tablet every 6 (six) hours. 12/22/2024 Discontinued (Therapy completed)azithromycin 250 mg oral tablet (5 sources)Macrolide AntimicrobialStart: 78-02-7606tshgrhvqhsje (Zithromax) 250 MG tablet TAKE 2 TABLETS BY MOUTH TODAY, THEN TAKE 1 TABLET DAILY FOR 4 DAYS DIRECTED 09/01/2025 Activebaclofen 10 mg oral tablet (20 sources)gamma-Aminobutyric Acid-ergic AgonistStart: 12-28-6298yglv 1 tablet by mouth in the morningbaclofen (Lioresal) 10 MG tablet Take 10 mg by mouth in the morning. 08/10/2025 ActiveStart: 12-15-2024 End: 24-68-5927mejy 1 tablet by mouth three times dailybaclofen 20 mg tablet Take 1 tablet by mouth three times a day. 90 tablet 5 12/15/2024 08/10/2025 Di scontinued (Changing Therapy/Dosage Form)Start: 01-21-2024 End: 98-69-3579haqk 1 tablet by mouth three times dailybaclofen 10 mg tablet Take 1 tablet by mouth three times a day. 90 tablet 5 01/21/2024 12/15/2024 Di scontinued (Changing Therapy/Dosage Form)Start: 10-27-2023 End: 27-89-8087diib 1 tablet by mouth twice dailybaclofen 10 mg tablet Take 1 tablet by mouth two times a day. 180 tablet 3 10/27/2023 01/21/2024 Discontinued Start: 10-26-2020 End: 94-81-6883piej 1 tablet by mouth twice dailybaclofen (LIORESAL) 10 mg tablet Take 1 tablet by mouth twice daily. 180 tablet 3 10/26/2020 12/20/2022 DiscontinuedStart: 75-15-8283zwtebrxi 10 mg, Oral, BID, Oral, 0 Refill(s), Refills(s) 0 Start Date: 09/13/20 Status: Ordered Repeat number: 1Start: 21-52-1291burhnyev 10 mg, Oral, BID, Oral, 0 Refill(s), Refills(s) 0 Start Date: 09/13/20 Status: OrderedStart: 09-13-2020 End: 96-67-4806xjczhoev 5 mg tablet Take 1 tablet by mouth as needed. 0 09/03/2023 10/27/2023 Discontinued (Other)Comment on above:Take 1 tablet by mouth twice daily.Take 1 tablet by mouth as needed.Take 5 mg by mouth.Take 1 tablet by mouth two times a day.Take 1 tablet by mouth three times a day. benzonatate 200 mg oral capsule (1 source)Non-narcotic AntitussiveStart: 03-17-2024 End: 31-16-4628hvou 1 capsule by mouth three times dailybenzonatate 200 mg oral capsule 200 mg = 1 cap(s), Oral, TID, X 7 day(s), # 21 cap(s), Refills(s) 0, [id number], cm, 03/17/24 12:53:00 EDT, Height/Length Dosing, 106.8, kg, 03/17/24 12:53:00 EDT, Weight Dosing Start Date: 03/17/24 Stop Date: 03/24/24 Status: Yncwobe39 hr buPROPion hydrochloride 150 mg extended release oral tablet (3 sources)AminoketoneStart: 01-74-1108iawd 1 tablet by mouth every twenty-four hoursWellbutrin XL 150 mg/24 hours Tab-ER 150 mg = 1 tab(s), Oral, q24hr, # 90 tab(s), Refills(s) 3, [id number], cm, 12/14/24 10:04:00 EST, Height/Length Dosing, 101, kg, 12/14/24 10:04:00 EST, Weight Dosing Start Date: 01/11/25 Status: Ordered Quantity: 90.0 Unit: tab(s) Repeat number: 4 Indications: Body mass index [BMI] 32.0-32.9, adult; Persons encountering health services inother specified circumstances; Other specified health status; Other obesity due to excess calories;Depression, unspecified;Capmist DM 15 mg-400 mg- 60 mg oral tablet (6 sources)Start: 71-11-1041Evqghpf DM 15 mg-400 mg-60 mg oral tablet 1 tab(s), Oral, q4hr, 30 tab(s), Refill(s) 0, not to exceed 4 doses/day, [id number], cm, 03/17/24 12:53:00 EDT, Height/Length Dosing, 106.8, kg,03/17/24 12:53:00 EDT, Weight Dosing Start Date: 03/17/24 Status: Ordered Quantity: 30.0 Unit: tab(s) Repeat number: 1 Indications: Bronchitis, not specified as acute or chronic; Other specified health status; Cough, unspecified; Body mass index [BMI] 33.0-33.9, adult;Start: 96-92-6622Ztrqxwm DM 15 mg-400 mg-60 mg oral tablet 1 tab(s), Oral, q4hr, 30 tab(s), Refill(s) 0, not to exceed 4 doses/day, [id number], 178, cm, 03/17/24 12:53:00 EDT, Height/Length Dosing, 106.8, kg,03/17/24 12:53:00 EDT, Weight Dosing Start Date: 03/17/24 Status: Ordered cephalexin 500 mg oral capsule (10 sources)Cephalosporin AntibacterialStart: 82-84-3361ysmo 1 capsule by mouth twice dailyKeflex 500 mg Cap 500 mg = 1 cap(s), Oral, BID, Start the day prior to procedure, # 14 cap(s), Refills(s) 0, Pharmacy: [facility]/pharmacy #[id number], 180, cm, 04/25/25 15:05:00 EDT, Height/Length Dosing, 101.5,kg, 04/25/25 15:05:00 EDT, Weight Dosing Start Date: 04/28/25 Status: Ordered Quantity: 14.0 Unit: cap(s) Repeat number: 1Start: 80-84-5957pokk 1 capsule by mouth twice dailyKeflex 500 mg Cap 500 mg = 1 cap(s), Oral, BID, Start the day prior to procedure, # 14 cap(s), Refills(s) 0, Pharmacy: [facility] #[id number], 177, cm, 04/17/22 14:39:00 EDT, Height/Length Dosing, 77, kg, 04/17/22 14:39:00 EDT, Weight Dosing Start Date: 09/19/22 Status: OrderedStart: 04-17-2022 End: 32-08-4210ufvc 1 capsule by mouth every twelve hoursKeflex 500 mg Cap 500 mg = 1 cap(s), Oral, q12hr, X 10 day(s), # 20 cap(s), Refills(s) 0, Pharmacy: [facility] #[id number], 177, cm, 04/17/22 14:39:00 EDT, Height/Length Dosing, 77, kg, 04/17/22 14:39:00EDT, Weight Dosing Start Date: 04/17/22 Stop Date: 04/27/22 Status: OrderedStart: 25-79-6615jzal 1 capsule by mouth twice dailyKeflex 500 mg Cap 500 mg = 1 cap(s), Oral, BID, Start the day prior to procedure, # 14 cap(s), Refills(s) 0, Pharmacy: [facility] #[id number], 175, cm, 02/11/22 13:14:00 EDT, Height/Length Dosing, 76, kg, 01/15/22 11:55:00 EST, Weight Dosing Start Date: 02/11/22 Status: OrderedStart: 96-49-8611Xsqsyw Refills(s) 0 Start Date: 07/28/13 Status: Orderedciprofloxacin 3 mg/ml / dexamethasone 1 mg/ml otic suspension (5 sources)Corticosteroid, Quinolone Antimicrobialciprofloxacin-dexAMETHasone (CiproDEX) otic suspension PLACE 10 DROPS INTO AFFECTED EAR(S) TWICE A DAY FOR 7 DAYS Activeerythromycin 0.005 mg/mg ophthalmic ointment (5 sources)Macrolide, Macrolide AntimicrobialStart: 35-64-2718unmjzlnszmns (Romycin) 5 MG/GM ophthalmic ointment APPLY TO AFFECTED EYE BEFORE BEDTIME EACH DAY 08/28/2025 Activeestradiol 1 mg oral tablet (20 sources)EstrogenStart: 98-56-9133Xsvspit 1 MG tablet 10/25/2024 ActiveStart: 04-04-2021 End: 00-73-1099wvqh 1 tablet by mouth once dailyEstradiol (ESTRACE) 0.5 mg tablet Take 1 tablet by mouth once daily. 30 tablet 11 12/08/2023 ActiveComment on above:Take 1 tablet by mouth once daily.Excedrin Extra Strength (6 sources)Start: 80-04-5046mzzc 2 tablets by mouth every six hoursExcedrin Extra Strength 2 tab(s), Oral, q6hr Headache, Refill(s) 0 Start Date: 01/14/24 Status: Ordered Repeat number: 1Start: 16-70-4479mfae 2 tablets by mouth every six hoursExcedrin Extra Strength 2 tab(s), Oral, q6hr Headache, Refill(s) 0 Start Date: 01/14/24 Status: Orderedgabapentin 300 mg oral capsule (10 sources)Anti-epileptic AgentStart: 71-51-1071zrfz 1 capsule by mouth twice dailygabapentin (Neurontin) 300 MG capsule See Instructions, TAKE 1 CAPSULE BY MOUTH TWICE A DAY, # 60 cap(s), Refills(s) 0, Pharmacy: [id number], 180, cm, 03/22/25 13:45:00 EDT, Height/Length Dosing, 100.4, kg, 03/22/25 13:45:00 EDT, Weight Dosing 04/25/2025 ActiveGemtesa 75 MG tablet (6 sources)Start: 82-14-9720Vvdlllx 75 MG tablet Take 75 mg by mouth 03/23/2024 Activemineral oil 0.319 mg/mg / petrolatum 0.577 mg/mg ophthalmic ointment (3 sources)Start: 45-31-9256Vgpx Sterile Lubricant ophthalmic ointment 1 walter, OPTH, Once a day (at bedtime) for dry eyes, 3.5 gram, Refill(s) 0, [facility]pharm[facility] #[id number], 180, cm, 02/08/25 10:16:00 EDT, Height/Length Dosing, 99.2, kg, 02/08/25 10:24:00 EDT, Weight Dosing Start Date: 02/09/25 Status: Ordered Quantity: 3.5 Unit: g Repeat number: 1mupirocin 0.02 mg/mg topical ointment (7 sources)RNA Synthetase Inhibitor AntibacterialStart: 39-31-7740Thejrxsxw 2% Ointment 1 walter, Topical, TID, 30 gram, Refill(s) 0 Start Date: 04/26/14 Status: OrderedStart: 51-87-5756Cfzdungcz 2% Ointment 1 walter, Topical, TID, 30 gram, Refill(s) 0 Start Date: 04/26/14 Status: Tzjmigq79 hr oxybutynin chloride 10 mg extended release oral tablet (11 sources)Cholinergic Muscarinic AntagonistStart: 75-84-8380ocwf 1 tablet by mouth once dailyoxybutynin 10 mg ER Tab 10 mg = 1 tab(s), Oral, Daily, # 30 tab(s), Refills(s) 3, Pharmacy: [facility], 178, cm, 01/14/24 10:21:00 EST, Height/Length Dosing, 109, kg, 01/14/24 10:21:00 EST, Weight Dosing Start Date: 02/04/24 Status: OrderedStart: 02-18-2017 End: 05-40-5863esmn 1 tablet by mouth three times dailyoxybutynin (DITROPAN) 5 mg tablet Take 1 tablet by mouth three times daily. 90 tablet 5 02/18/2017 0 12/20/2022 DiscontinuedComment on above:Take 1 tablet by mouth three times daily. Paxil (6 sources)Serotonin Reuptake InhibitorStart: 22-42-7796Dgxlz Refills(s) 0 Start Date: 07/28/13 Status: Orderedphentermine hydrochloride 37.5 mg oral tablet (13 sources)Sympathomimetic Amine AnorecticStart: 72-99-7296vkyj 1 tablet by mouth once dailyphentermine 37.5 mg Tab 37.5 mg = 1 tab(s), Oral, Daily, # 30 tab(s), Refills(s) 0, Pharmacy: [facility]/pharmacy #[id number], 180, cm, 04/25/25 15:05:00 EDT, Height/Length Dosing, 101.5, kg, 04/25/25 15:05:00 EDT, Weight Dosing Start Date: 04/25/25 Status: Ordered Quantity: 30.0 Unit: tab(s) Repeat number: 1Start: 05-79-3193wyid 1 tablet by mouth once dailyphentermine 37.5 mg Tab 37.5 mg = 1 tab(s), Oral, Daily, # 30 tab(s), Refills(s) 0, Pharmacy: [facility]/pharmacy #[id number], 180, cm, 07/29/24 8:33:00 EDT, Height/Length Dosing, 106.2, kg, 07/29/24 8:33:00 EDT,Weight Dosing Start Date: 07/29/24 Status: OrderedStart: 07-08-2024 phentermine 37.5 MG capsule 37.5 mg 07/08/2024 ActiveStart: 80-39-1846ecpq 1 tablet by mouth once dailyphentermine 37.5 mg Tab 37.5 mg = 1 tab(s), Oral, Daily, # 30 tab(s), Refills(s) 0, Pharmacy: [id number], 180, cm, 05/25/24 10:36:00 EDT, Height/Length Dosing, 108, kg, 05/25/24 10:36:00 EDT, Weight Dosing Start Date: 05/25/24 Status: OrderedStart: 73-15-7524fnog 1 tablet by mouth once dailyphentermine 37.5 mg Tab 37.5 mg = 1 tab(s), Oral, Daily, # 30 tab(s), Refills(s) 0, Pharmacy: [facility] #72, 177, cm, 08/12/23 11:53:00 EDT, Height/Length Dosing, 109.9, kg, 08/12/23 11:53:00 EDT, Weight Dosing Start Date: 08/12/23 Status: OrderedpredniSONE 10 mg oral tablet (8 sources)Start: 96-14-5043nrzmxpUPOE (Deltasone) 10 MG tablet TAKE 3 TABS DAILY X3 DAYS, 2 TABS DAILY X3 DAYS, 1 TAB DAILY X3DAYS DIRECTED 08/31/2025 ActiveStart: 06-77-0556bkbu 4 tablets by mouth once dailypredniSONE 10 mg Tab See Instructions, TAKE 4TABS BY MOUTH DAILY X3DAYS,3TABS DAILY X3DAYS,2TABS RASHI LY X3DAYS,1TAB DAILY X3DAYS DIRECTED, # 30 tab(s), Refills(s) 0, Pharmacy: [facility]/pharmacy #[id number], 180, cm, 02/08/25 10:16:00 EDT, Height/Length Dosing, 99.2, kg, 02/08/25 10:24:00 EDT, Weight Dosing Start Date: 02/08/25 Status: Ordered Quantity: 30.0 Unit: tab(s) Repeat number: 1sertraline 25 mg oral tablet (6 sources)Serotonin Reuptake InhibitorStart: 40-89-7821xtpjtnkysw (Zoloft) 25 MG tablet Take 25 mg by mouth 07/21/2025 Activesulfamethoxazole 800 mg / trimethoprim 160 mg oral tablet (1 source)Dihydrofolate Reductase Inhibitor Antibacterial, Sulfonamide AntimicrobialStart: 07-29-2024 End: 14-99-9897htnzlhoujicfrixv-trimethoprim 800 mg-160 mg Tab 1 tab(s), Oral, BID for 7 day(s), 14 tab(s), Refill(s) 0, [facility]/pharmacy #[id number], 180, cm, 07/29/24 8:33:00 EDT, Height/Length Dosing, 106.2, kg, 07/29/24 8:33:00 EDT, Weight Dosing Start Date: 07/29/24 Stop Date: 08/05/24 Status: Orderedtizanidine (6 sources)Central alpha-2 Adrenergic AgonistStart: 20-45-2095ezjwcshywd Refills(s) 0 Start Date: 05/17/14 Status: Orderedtopiramate 50 mg oral tablet (7 sources)Start: 02-77-4513wqvr 1 tablet by mouth twice dailytopiramate 50 mg Tab 50 mg = 1 tab(s), Oral, BID, # 180 tab(s), Refills(s) 1, [id number], cm, 12/14/24 10:04:00 EST, Height/Length Dosing, 101, kg, 12/14/24 10:04:00 EST, Weight Dosing Start Date: 01/11/25 Status: Ordered Quantity: 180.0 Unit: tab(s) Repeat number: 2valACYclovir 1000 mg oral tablet (14 sources)Herpesvirus Nucleoside Analog DNA Polymerase Inhibitor, Herpes Simplex Virus Nucleoside Analog DNA Polymerase Inhibitor, Herpes Zoster Virus Nucleoside Analog DNA Polymerase InhibitorStart: 42-70-1069xutj 1 tablet by mouth once dailyValtrex 1 g Tab 1 gm = 1 tab(s), Oral, Daily, # 90 tab(s), Refills(s) 1, [id number] 180, cm, 03/22/25 13:45:00 EDT, Height/Length Dosing, 100.4, kg, 03/22/25 13:45:00 EDT, Weight Dosing Start Date: 03/22/25 Status: Ordered Quantity: 90.0 Unit: tab(s) Repeat number: 2Start: 52-72-0048zznPHLpfatnu (Valtrex) 1 g tablet Take 1 g by mouth 03/19/2024 Active Start: 29-02-7196bntx 1 tablet by mouth twice dailyValtrex 1 g Tab 1 gm = 1 tab(s), Oral, BID, # 20 tab(s), Refills(s) 0, [id number] 178, cm, 03/17/24 12:53:00 EDT, Height/Length Dosing, 106.8, kg, 03/17/24 12:53:00 EDT, Weight Dosing Start Date: 03/19/24 Status: OrderedvalACYclovir (VALTREX) 1 gram tablet Take 1,000 mg by mouth once daily. Activevibegron 75 MG Oral Tablet [Gemtesa] (8 sources)Start: 46-80-4625yjor 1 tablet by mouth once dailyGemtesa 75 mg oral tablet 75 mg = 1 tab(s), Oral, Daily, # 90 tab(s), Refills(s) 3, Pharmacy: [facility] #[id number], 180, cm, 06/01/24 14:27:00 EDT, Height/Length Dosing, 103, kg, 06/01/24 14:27:00 EDT,Weight Dosing Start Date: 06/01/24 Status: Ordered Quantity: 90.0 Unit: tab(s) Repeat number: 4 Indications: Unspecified urinary incontinence; Overactive bladder;Start: 35-92-2276xzoq 1 tablet by mouth once dailyGemtesa 75 mg oral tablet 75 mg = 1 tab(s), Oral, Daily, # 90 tab(s), Refills(s) 3, Pharmacy: [facility]/pharmacy #[id number], 180, cm, 06/01/24 14:27:00 EDT, Height/Length Dosing, 103, kg, 06/01/24 14:27:00 EDT,Weight Dosing Start Date: 06/01/24 Status: OrderedStart: 16-00-2002pbjk 1 tablet by mouth once dailyGemtesa 75 mg oral tablet 75 mg = 1 tab(s), Oral, Daily, # 30 tab(s), Refills(s) 6, Pharmacy: [facility]/pharmacy #[id number], 180, cm, 03/23/24 14:37:00 EDT, Height/Length Dosing, 103.6, kg, 03/23/24 14:37:00 EDT, Weight Dosing Start Date: 03/23/24 Status: OrderedVitamin B-12 1000 mcg oral tablet (11 sources)Start: 30-98-2161xvyr 1 tablet by mouth once dailyVitamin B-12 1000 mcg oral tablet 1,000 mcg = 1 tab(s), Oral, Daily, # 30 tab(s), Refills(s) 5, Pharmacy: [facility]/pharmacy #[id number], 177, cm, 07/22/23 13:10:00 EDT, Height/Length Dosing, 102, kg, 07/22/23 13:10:00 EDT, Weight Dosing Start Date: 07/24/23 Status: Ordered Quantity: 30.0 Unit: tab(s) Repeat number: 6 Indications: Other specified health status; Body mass index [BMI] 34.0-34.9, adult; Encounter for other screening for malignant neoplasm of breast; Encounter for screening for malignant neoplasm of cervix; Encounter for gynecological examination (general) (routine) without abnormal findings;Start: 88-40-3259dccz 1 tablet by mouth once dailyVitamin B-12 1000 mcg oral tablet 1,000 mcg = 1 tab(s), Oral, Daily, # 30 tab(s), Refills(s) 5, [id number] 177, cm, 07/22/23 13:10:00 EDT, Height/Length Dosing, 102, kg, 07/22/23 13:10:00 EDT, Weight Dosing Start Date: 07/24/23 Status: OrderedStart: 71-14-2222tapo 1 tablet by mouth once daily Vitamin B-12 1000 mcg oral tablet 1,000 mcg = 1 tab(s), Oral, Daily, # 30 tab(s), Refills(s) 0, [id number], 176.8, cm, 06/24/23 11:25:00 EDT, Height/Length Dosing, 106.5, kg, 06/24/23 11:25:00 EDT, Weight Dosing Start Date: 06/24/23 Status: Ordered Completed/Discontinued Medications MedicationDrug Class(es)DatesSig (Normalized)Sig (Original)onabotulinumtoxina 100 unt injection (20 sources)Acetylcholine Release InhibitorStart: 08-10-2025 End: 93-61-9549olahaiuenwrb toxin type A 400 Units injection (BOTOX)Start: 08-10-2025 End: 77-11-3800nowaue 2 mL by intramuscular injection [id number] Units, INTRAMUSCULAR, ONCE (UP TO 30 DAYS AMB), 1 dose, On Fri08/10/25 at 1130, This record documents the total dose provided to patient. See progress note for specific locations and amounts administered. Dilution: 100 units Botox mixed with 2 ml saline REFRIGERATE - Pharmaceutical Waste: Lab Pack -Start: 12-15-2024 End: 28-33-4227oyjtxgrxawae toxin type A 400 Units injection (BOTOX)Start: 12-15-2024 End: 74-50-0845aufbtr 2 mL by intramuscular injection [id number] Units, INTRAMUSCULAR, ONCE (UP TO 30 DAYS AMB), 1 dose, On Fri12/15/24 at 1330, This record documents the total dose provided to patient. See progress note for specific locations and amounts administered. Dilution: 100 units botox mixed with 2 ml saline REFRIGERATE - Pharmaceutical Waste: Lab Pack -Start: 2024 End: 05-48-0865xjmhflrghcbt toxin type A 400 Units injection (BOTOX)Start: 2024 End: 54-11-5958tvebww 2 mL by intramuscular injection [id number] Units, INTRAMUSCULAR, ONCE (UP TO 30 DAYS AMB), 1 dose, On Fri09/08/24 at 1200, This record documents the total dose provided to patient. See progress note for specific locations and amounts administered. Dilution: 100 units botox mixed with 2 ml saline REFRIGERATE - Pharmaceutical Waste: Lab Pack -Start: 05-26-2024 End: 62-57-6130wkfyzgbqntng toxin type A 300 Units injection (BOTOX)Start: 59-25-0558mdpzyudjsduw toxin type A (BOTOX) 100 unit solr Injected every 3 months for spasticity as directed.09/03/2023 ActiveStart: 01-53-9888Mzhya 100 units injection 0 Refill(s), Injected every 3 months for spasticity as directed., Refills(s) 0 Start Date: 09/02/23 Status: Ordered Repeat number: 1 onabotulinumtoxinA (Botox) 100 units injection Inject as directed 1 (one) time ActiveComment on above:Injected every 3 months for spasticity as directed. citalopram 20 mg oral tablet (15 sources)Serotonin Reuptake InhibitorStart: 09-21-2019 End: 06-76-0427pygu 1 tablet by mouth once dailycitalopram (CELEXA) 20 mg tablet Indications: Mood disturbance Take 1 tablet by mouth once daily. 90 tablet 3 09/21/2019 09/03/2023 Discontinued (Discontinued by another Health Care Provider)Comment on above:Take 1 tablet by mouth once daily.cyclobenzaprine hydrochloride 10 mg oral tablet (15 sources)Muscle RelaxantStart: 09-21-2019 End: 46-37-8377rrnf 1 tablet by mouth every eight hours as neededcyclobenzaprine (FLEXERIL) 10 mg tablet Take 1 tablet by mouth three times daily as needed for Muscle Spasm. 90 tablet 5 09/21/2019 09/03/2023 Discontinued (Discontinued by another Health Care Provider) End: 24-70-7367plxnxkcczutaues (Flexeril) 10 MG tablet 1 (one) time each day at the same time. 12/22/2024 Discontinued (Therapy completed)Comment on above:Take 1 tablet by mouth three times daily as needed for Muscle Spasm.iv contrast (will be provided with radiology test) (2 sources)Start: 04-16-2024 End: [id number] 1 dose intravenously onceiv contrast (will be provided with radiology test) [...] guidelines link 1 Each 0 04/16/2024 04/17/2024 ExpiredStart: 12-20-2022 End: [id number] 1 dose intravenously onceiv contrast (will be provided with radiology test) [...] Each 0 12/20/2022 12/21/2022 Active Comment on above:MRI Brain Inject, intravenously, once for 1 dose.No [...] link LORazepam 1 mg oral tablet (20 sources)BenzodiazepineStart: 04-16-2024 End: 24-32-3095TDKmficdi (ATIVAN) 1 mg tablet Indications: Brain tumor (HCC) Take 1-2 tablets prior to MRI procedure. 2 tablet 04/16/2024 12/15/2024 Discontinued (Discontinued by another Health Care Provider)Start: 03-18-2024 End: 28-74-0430GIVylomib (ATIVAN) 1 mg tablet Indications: Brain tumor (HCC) Take 1-2 tablets prior to MRI procedure. Do not start before March 18, 2024. 2 tablet 0 03/18/2024 04/16/2024 DiscontinuedStart: 09-12-2021 End: 92-00-8924UAOogcqgs (ATIVAN) 1 mg tablet Indications: Brain tumor (HCC) Take 1-2 tablets prior to MRI procedure. 2 tablet 0 09/12/2022 09/03/2023 Discontinued (Discontinued by another Health Care Provider)Comment on above:Take 1-2 tablets prior to MRI procedure.Mounjaro 10 MG/0.5ML solution pen-injector (3 sources)Start: 12-25-2022 End: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 [BMI] 32.0-32.9, adult) BMI education. Adipex-P sent in. RTC 4 weeks for weight check Orders: amoxicillin-clavulanate, 1 tab(s), Oral, q12hr for 7 day(s), 14 tab(s), Refill(s) 0, [facility]/pharmacy #[id number], 180, cm, 08/11/25 15:16:00 EDT, Height/Length Dosing, 104.6, kg, 08/11/25 15:16:00 EDT, WeightDosing phentermine, 37.5 mg = 1 tab(s), Oral, Daily, # 30 tab(s), Refills(s) 0, Pharmacy: [facility] #[id number], 180, cm, 05/30/25 9:52:00 EDT, Height/Length Dosing, 99.6, kg, 05/30/25 9:52:00 EDT, Weight Dosing phentermine, 37.5 mg = 1 tab(s), Oral, Daily, # 30 tab(s), Refills(s) 0, Pharmacy: [facility] #[id number], 180, cm, 08/11/25 15:16:00 EDT, Height/Length Dosing, 104.6, kg, 08/11/25 15:16:00 EDT, Weight Dosing topiramate, 50 mg = 1 tab(s), Oral, BID, # 180 tab(s), Refills(s) 1, Pharmacy: [id number], 180, cm, 12/14/24 10:04:00 EST, Height/Length Dosing, 101, kg, 12/14/24 10:04:00 EST, Weight Dosing Follow-up No qualifying data available Problem List/Past Medical History Ongoing Reis's palsy Breast cancer screening Cervical cancer screening Congestion of nasal sinus Depressive disorder Elevated WBCs Enuresis Excessive dietary caloric intake Fibroids History of brain tumor History of gestational diabetes Insulin resistance Left otitis media Leukocytosis Major depressive disorder, recurrent episode, moderate Non-smoker Overactive bladder Postinfective urethral stricture in female Recurrent oral herpes simplex Recurrent oral herpes simplex infection Sinusitis Sinusitis Skin infection Urine incontinence Historical Biopsy of brain tissue tumor Brain tumor Cholecystectomy CS - section Depression Gestational diabetes Gestational diabetes mellitus, class A>2< [...] (11/11/2017), brain biopsy, 2010, Gallbladder operation. Medications amoxicillin-clavulanate 875 mg-125 mg Tab, 1 tab(s), Oral, q12hr baclofen, 10 mg, Oral, BID Botox 100 units injection gabapentin 300 mg Cap, See Instructions Gemtesa 75 mg oral tablet, 75 mg= 1 tab(s), Oral, Daily, 2 refills phentermine 37.5 mg Tab, 37.5 mg= 1 tab(s), Oral, Daily, Not taking phentermine 37.5 mg Tab, 37.5 mg= 1 tab(s), Oral, Daily topiramate 50 mg Tab, See Instructions, Not taking Tylenol, 650 mg, Oral, PRN Valtrex 1 g Tab, 1 gm= 1 tab(s), Oral, Daily, 1 refills Zoloft 25 mg Tab, 25 mg= 1 tab(s), Oral, Daily Allergies Bee Stings (Swelling) morphine (Rash) Social History Alcohol - Denies Alcohol Use, 09/16/2011 Never., 09/06/2024 Substance Abuse - Denies Substance Abuse, 09/16/2011 Never., 09/06/2024 Tobacco - Denies Tobacco Use, 09/16/2011 Never (less than 100 in lifetime) Tobacco Use:. Yes, 08/11/2025 Family History Acute myocardial infarction: Negative: Father. Diabetes mellitus: Mother and Father. Heart disease: Father. Immunizations Vaccine Date Status Comments influenza virus vaccine, inactivated 09/14/2024 Recorded Fluzone Quadrivalent- Single dose influenza virus vaccine, inactivated 10/08/2023 Given influenza virus vac (more content not included)...[facility] CenterComment on above:Result Comment: Electronically Signed By: Ara Michelle.mark\Date and Time Signed: 08/11/25 15:33 EDTCNOVon [id number] Visit (REHAV) MONIKA HASKINS ([id number]) 1970 F Date Time Provider Department 08/10/25 11:15 AM PATRICK BUSTAMANTE REHANITHA During your visit today, we recorded the following information about you: Patrick Bustamante MD 08/09/2025 8:39 AM Signed You have received botulinum toxin injections today. The skin around the site of injections should be monitored for a couple of days. If redness or swelling occur, the skin should be examined by a health residential caregiver to rule out infection. If you experience pain in the muscles injected over the next few days, you can take Tylenol to control the pain (unless contra-indicated). Please call our office at [phone] with any questions or concerns. MD Dianna Sun Keith, MD 08/10/2025 12:44 PM Signed BOTULINUM TOXIN THERAPY - Informed consent was signed on 11/12/2023. Patient accompanied by: No one Current complaints / history since last visit: most recent botulinum toxin injections on 12/15/2024. She reports that Botox injections were effective with less stiffness and improved range of motion. He arm was looser. She had better positioning. Walking was better. She denies spasms. Oral antispasticity medications: Baclofen 10 mg once daily Illnesses / hospitalizations since the last visit: She was hospitalized in January for Reis's Palsy Other updates: No Anticoagulation: No Home stretching/exercise routine: She performs stretching exercises daily at bedtime PT/OT: She is in physical therapy once a week BT therapy effective? Yes - stiffness, other and active function (range of motion) Duration of benefit: 8 weeks Side effects: No Spasm scale: 0=No spasm Pain related to the purpose of the visit: Yes LOCATION: Left shoulder PAIN SCALE: 2 on a scale of 0-10 PAIN CHARACTER: Tightness DURATION: (How long have you had the [...] risk for falling: Yes, frequency once a month, no injuries per patient Examination: Strength Right Left Shoulder abduction 5 2 Elbow flexion 5 1+ Elbow extension 5 2 Wrist extension 5 0 Hip flexion 5 3 Knee flexion 5 2 Knee extension 5 3+ Plantarflexion 5 Dorsiflexion 5 Strength: She is wearing left AFO. Spasticity Right Left Shoulder 0 3 Elbow flexors 0 2 Elbow extensors 0 3 Wrist flexors 0 0 Wrist extensors 0 2 Finger flexors 0 4 Finger extensors 0 0 Hip adductors 0 [...] In: A Moment of CARE was completed. Appropriate PPE (Personal Protective Equipment) worn by all providers involved with the procedure. Special equipment utilized EMG. Patient/Surrogate Stated/Verified: Patient name, Date of , Relevant allergies, and The intended procedure Time Out: Relevant labs, photos, and/or imaging studies are not applicable. Intended patient and procedure match the source document(s) (e.g. consent, HANDP, associated studies [imaging, pathology]) match the intended patient and procedure. Consent obtained and matches the intended procedure. Yes. Correct side/site has been marked and visible. Medications required for this procedure are verified. Fire risk assessed and is not applicable. Implants: are not applicable. Sign (more content not included)...NormalMain Campus Medical CenterAmbulatory Visit Summaryon [id number] Visit SummaryAmbulatory Visit Summary MONIKA HASKINS :1970 Visit Date:05/30/2025 Ambulatory Visit Instructions Your Care Team Attending Physician - Ara Michelle Primary Care Physician - Ara Michelle This Is Your Medications List acetaminophen (Tylenol) baclofen gabapentin (gabapentin 300 mg Cap) onabotulinumtoxinA (Botox 100 units injection) phentermine (phentermine 37.5 mg Tab) topiramate (topiramate 50 mg Tab) valacyclovir (Valtrex 1 g Tab) Procedures Performed [...] Gallbladder operation. Discharge Vitals Temperature (Temporal Artery) 35.7 ???C Heart Rate (Peripheral) 88 Respiratory Rate 18 Blood Pressure 128/84 Height 180.0 cm Height 71 in Weight 99.6 kg Weight 219.58 lb BMI 30.74 Medications What How Much When Instructions Unchanged acetaminophen (Tylenol) 650 Milligram By Mouth As needed for as needed for pain Unchanged baclofen 10 Milligram By Mouth 2 times a day Oral, 0 Refill(s) Unchanged gabapentin (gabapentin 300 mg Cap) See instructions TAKE 1 CAPSULE BY MOUTH TWICE A DAY Unchanged onabotulinumtoxinA (Botox 100 units injection) 0 Refill(s), Injected every 3 months for spasticity as directed. Unchanged phentermine (phentermine 37.5 mg Tab) 1 Tablets By Mouth Every day Unchanged topiramate (topiramate 50 mg Tab) 1 Tablets By Mouth 2 times a day Unchanged valacyclovir (Valtrex 1 g Tab) 1 Tablets By Mouth Every day Allergies Bee Stings (Swelling) morphine (Rash) Problems Ongoing - Any problem that you are currently receiving treatment for. Adult BMI 33.0-33.9 kg/sq m Reis's palsy BMI 30.0-30.9,adult BMI 31.0-31.9,adult Breast cancer screening Cervical cancer screening Congestion of nasal sinus Depressive disorder Elevated WBCs Enuresis Excessive dietary caloric intake Fibroids History of brain tumor History of gestational diabetes Insulin resistance Leukocytosis Major depressive disorder, recurrent episode, moderate Non-smoker Nonsmoker Obesity (BMI 30-39.9) Overactive bladder Postinfective urethral stricture in female Recurrent oral herpes simplex Recurrent oral herpes simplex infection Sinusitis Sinusitis Skin infection Urine incontinence Historical - Any problem that you are no longer receiving treatment for. Biopsy of brain tissue tumor Brain tumor Cholecystectomy CS - section Depression Gestational diabetes Gestational diabetes mellitus, class A>2< Incontinence without sensory awareness Nocturia Nocturnal enuresis Other microscopic hematuria Stress incontinence Urge incontinence Urgency of urination Patient Survey You may receive a survey via text or e-mail asking about your office visit. Please share your experience with us by completing your survey. We appreciate your feedback and thank you for choosing us for your care. Patient Portal You may access all of your results and other medical record information on our secure patient portal. If you are not signed up for this yet, please contact [employer] at [phone] to get signed up today. Language Information Language assistance services are available as needed. [facility] Medicine Office/Clinic Noteon [id number] Medicine Office/Clinic NoteFataravista behavioral [facility] center Medicine Office/Clinic Note HPI Staff Patient is presenting for 1 month follow up weight management Started on Adipex and Topamax Sleeping well:Yes, 6-8 hours Chest pain:No Tremors:No Headaches:No Heart fluttering:No Blurred Vision:No Starting Weight: 223.739 Weight this visit: 219.5 lbs. Medication agreement: 04/25/25 Refills: refills on Adipex History of Present Illness pt presents today for weight management Review of Systems PHQ Score Initial Depression Screen Score: 0 SCORE Physical Exam Vitals & Measurements T: 35.7 ???C(Temporal Artery) HR: 88(Peripheral) RR: 18 BP: 128/84 SpO2: 99% HT: 71 in HT: 180.0 cm WT: 219.58 lb WT: 99.6 kg BMI: 30.74 General: alert, no acute distress ENMT: oral [...] (Z76.89: Persons encountering health services in other specifiedcircumstances) pt is down another 4 pounds. she is very happy with this progress. will send refills .RTC 3 months 2. BMI 30.0-30.9,adult (Z68.30: Body mass index [BMI] 30.0-30.9, adult) BMI education given 3. Class 1 obesity due to excess calories with body mass index (BMI) of 33.0 to 33.9 in adult (E66.811: Obesity, class 1) see above 4. Non-smoker (Z78.9: Other specified health status) continue not smoking Orders: phentermine, 37.5 mg = 1 tab(s), Oral, Daily, # 30 tab(s), Refills(s) 0, Pharmacy: [facility]/pharmacy #[id number], 180, cm, 05/30/25 9:52:00 EDT, Height/Length Dosing, 99.6, kg, 05/30/25 9:52:00 EDT, Weight Dosing phentermine, 37.5 mg = 1 tab(s), Oral, Daily, # 30 tab(s), Refills(s) 0, [id number], cm, 04/25/25 15:05:00 EDT, Height/Length Dosing, 101.5, kg, 04/25/25 15:05:00 EDT, Weight Dosing topiramate, See Instructions, TAKE 1 TABLET BY MOUTH TWICE A DAY, # 60 tab(s), Refills(s) 2, Pharmacy: [id number], 180, cm, 05/30/25 9:52:00 EDT, Height/Length Dosing, 99.6, kg, 05/30/25 9:52:00EDT, Weight Dosing Follow-up No qualifying data available Problem List/Past Medical History Ongoing Reis's palsy BMI 30.0-30.9,adult Breast cancer screening Cervical cancer screening Congestion of nasal sinus Depressive disorder Elevated WBCs Enuresis Excessive dietary caloric intake Fibroids History of brain tumor History of gestational diabetes Insulin resistance Leukocytosis Major depressive disorder, recurrent episode, moderate Non-smoker Overactive bladder Postinfective urethral stricture in female Recurrent oral herpes simplex Recurrent oral herpes simplex infection Sinusitis Sinusitis Skin infection Urine incontinence Historical Biopsy of brain tissue tumor Brain tumor Cholecystectomy CS - section Depression Gestational diabetes Gestational diabetes mellitus, class A>2< [...] mg, Oral, BID Botox 100 units injection gabapentin 300 mg Cap, See Instructions phentermine 37.5 mg Tab, 37.5 mg= 1 tab(s), Oral, Daily topiramate 50 mg Tab, See Instructions topiramate 50 mg Tab, 50 mg= 1 tab(s), Oral, BID, 1 refills Tylenol, 650 mg, Oral, PRN Valtrex 1 g Tab, 1 gm= 1 tab(s), Oral, Daily, 1 refills Allergies Bee Stings (Swelling) morphine (Rash) Social History Alcohol - Denies Alcohol Use, 09/16/2011 Never., 09/06/2024 Substance Abuse - Denies Substance Abuse, 09/16/2011 Never., 09/06/2024 Tobacco - Denies Tobacco Use, 09/16/2011 Never (less than 100 in lifetime) Tobacco Use:. Never Smokeless Tobacco Use:. Cigarettes, Householdtobacco concerns: No. Yes, 05/30/2025 Family History Acute myocardial infarction: Negative: Father. Diabetes mellitus: Mother and Father. Heart disease: Father. Immunizations Vaccine Date Status Comments influenza virus vaccine, inactivated 09/14/2024 Recorded Fluzone Quadrivalent- Single dose influenza virus vaccine, inactivated 10/08/2023 Given influenza virus vaccine, inactivated - Not Given Expectation Not Necessary error influenza virus vaccine, (more content not included)...[facility] CenterComment on above:Result Comment: Electronically Signed By: Ara Michelle\.br\Date and Time Signed: 05/30/25 16:16 EDTAmbulatory Visit Summary on [id number] Visit SummaryAmbulatory Visit Summary MONIKA HASKINS Wes :1970 Visit Date:05/23/2025 Ambulatory Visit Instructions Your Diagnosis Overactive bladder Urine incontinence Your Care Team Attending Physician - LIANNA RIOS PA-C Primary Care Physician - Ara Michelle This Is Your Medications List Contact prescribing physician if questions or concerns acetaminophen (Tylenol) baclofen gabapentin (gabapentin 300 mg Cap) onabotulinumtoxinA (Botox 100 units injection) phentermine (phentermine 37.5 mg Tab) topiramate (topiramate 50 mg Tab) valacyclovir (Valtrex 1 g Tab) [Image Removed: STOP]Stop taking these medications vibegron (Gemtesa 75 mg oral tablet) Procedures [...] Gallbladder operation. Discharge Vitals Heart Rate (Peripheral) 88 Respiratory Rate 16 Blood Pressure 132/88 Height 180 cm Height 71 in Weight 99.5 kg Weight 219.36 lb BMI 30.71 What to do next Scheduled Follow-Up Appointments Friday 9:40 AM EDT With: Ara Michelle Where: [facility] [place] [id number]- You Need to Schedule the Following Appointments Follow Up with [facility] When: Comments: Only if needed/new problems arise. No scheduled appointment indicated at this time. Where: Medications What How Much When Instructions Unchanged acetaminophen (Tylenol) 650 Milligram By Mouth As needed for as needed for pain Contact prescribing physician if questions or concerns Unchanged baclofen 10 Milligram By Mouth 2 times a day Oral, 0 Refill(s) Contact prescribing physician if questions or concerns Unchanged gabapentin (gabapentin 300 mg Cap) See instructions TAKE 1 CAPSULE BY MOUTH TWICE A DAY Contact prescribing physician if questions or concerns Unchanged onabotulinumtoxinA (Botox 100 units injection) 0 Refill(s), Injected every 3 months for spasticity as directed. Contact prescribing physician if questions or concerns Unchanged phentermine (phentermine 37.5 mg Tab) 1 Tablets By Mouth Every day Contact prescribing physician if questions or concerns Unchanged topiramate (topiramate 50 mg Tab) 1 Tablets By Mouth 2 times a day Contact prescribing physician if questions or concerns Unchanged valacyclovir (Valtrex 1 g Tab) 1 Tablets By Mouth Every day Contact prescribing physicianif questions or concerns What How Much When Why Comments Stop Taking vibegron (Gemtesa 75 mg oral tablet) 1 Tablets By Mouth Every day Overactive bladder Enuresis Allergies Bee Stings (Swelling) morphine (Rash) Problems Ongoing - Any problem that you are currently receiving treatment for. Adult BMI 33.0-33.9 kg/sq m Reis's palsy BMI 30.0-30.9,adult BMI 31.0-31.9,adult Breast cancer screening Cervical cancer screening Congestion of nasal sinus Depressive disorder Elevated WBCs Enuresis Excessive dietary caloric intake Fibroids History of brain tumor History of gestational diabetes Insulin resistance Leukocytosis Major depressive disorder, recurrent episode, moderate Non-smoker Nonsmoker Obesity (BMI 30-39.9) Overactive bladder Postinfective urethral stricture in female Recurrent oral herpes simplex Recurrent oral herpes simplex infection Sinusitis Sinusitis Skin infection Urine incontinence Historical - Any problem that you are no longer receiving treatment for. Biopsy of brain tissue tumor Brain tumor Cholecystectomy CS - section Depression Gestational diabetes Gestational diabetes mellitus, class A>2< Incontinence without sensory awareness Nocturia Nocturnal enuresis Other microscopic hematuria Stress incontinence Urge incontinence Urgency of urination Patient Survey You may receive a survey via text or e-mail asking about your office visit. Please share your experience with us by completing your survey. We appreciate your feedback and thank you for choosing us for your care. Education Materials Overactive Bladder, Adult Overactive bladder is a [...] between your bladder and your brain. Your b (more content not included)...NormalFisher [facility] CenterUrology Office/Clinic Noteon [id number] Office/Clinic NoteUrology Office/Clinic Note Chief Complaint follow up from botox HPI Staff F/u to Botox 200 units done 05/03/2025. DX: OAB and enuresis Vibegron 75mg qd denies pain/burning denies visible blood denies flank pain BBSQ: 5 PVR: 0mL Review of Systems PHQ Score Initial Depression Screen Score: 0 SCORE No fever, chills, malaise, myalgia. No abdominal pain, flank pain, gross hematuria. Physical Exam Vitals & Measurements HR: 88(Peripheral) RR: 16 BP: 132/88 HT: 71 in HT: 180 cm WT: 99.5 kg WT: 219.36 lb BMI: 30.71 General: nontoxic, NAD Mouth: moist mucosa Lungs: normal respiratory effort Cardio: regular rate, good distal perfusion Abdomen: nondistended Neurologic: Grossly normal Skin: No rashes or suspicious lesions Assessment/Plan 1. Overactive bladder (N32.81: Overactive bladder) S/p Botox #7, 200u w/ PRW 05/03/25. Pt does get Botox 400u in her arm. Knows to stagger dose w/ bladder Botox. Stopped Gemtesa 75mg after Botox. Does want to keep the medication available for when Botox starts to wear off. BBSQ 5 Very Good control. No UUI. No ANT. UA negative. PVR 0 ml. -Call when wishes to schedule next round of Botox -Ok to resume Gemtesa when Botox starts wearing off Ordered: 30330 Measure Post Void residual urine and/or bladder capacity by US- non-imaging Body Mass Index (BMI) documented 3008F Current tobacco non-user 1036F Depression Screening Negative 3352F E&M of Est. Patient Low 20-29 Min 15647 Influenza immunization status assessed 1030F Medication list documented in medical record 1159F Most recent diastolic blood pressure 80-89 mm Hg 3079F Review of all meds by a prescribing practitioner or clinical pharmacist documented in EHR 1160F Systolic BP 130-139 mm Hg (Most Recent) 3075F 2. Urine incontinence (R32: Unspecified urinary incontinence) See #1. Ordered: 32259 Measure Post Void residual urine and/or bladder capacity by US- non-imaging Body Mass Index (BMI) documented 3008F Current tobacco non-user 1036F Depression Screening Negative 3352F E&M of Est. Patient Low 20-29 Min 39545 Influenza immunization status assessed 1030F Medication list documented in medical record 1159F Most recent diastolic blood pressure 80-89 mm Hg 3079F Review of all meds by a prescribing practitioner or clinical pharmacist documented in EHR 1160F Systolic BP 130-139 mm Hg (Most Recent) 3075F Orders: Urnls Dip Stick Auto w/o Microscopy POC 09837 Follow-up With When Contact Information [facility] Additional Instructions: Only if needed/new problems arise. No scheduled appointment indicated at this time. Patient Education Overactive Bladder, Adult Problem List/Past Medical History Ongoing Adult BMI 33.0-33.9 kg/sq m Reis's palsy BMI 30.0-30.9,adult BMI 31.0-31.9,adult Breast cancer screening Cervical cancer screening Congestion of nasal sinus Depressive disorder Elevated WBCs Enuresis Excessive dietary caloric intake Fibroids History of brain tumor History of gestational diabetes Insulin resistance Leukocytosis Major depressive disorder, recurrent episode, moderate Non-smoker Nonsmoker Obesity (BMI 30-39.9) Overactive bladder Postinfective urethral stricture in female Recurrent oral herpes simplex Recurrent oral herpes simplex infection Sinusitis Sinusitis Skin infection Urine incontinence Historical Biopsy of brain tissue tumor Brain tumor Cholecystectomy CS - section Depression Gestational diabetes Gestational diabetes mellitus, class A>2< [...] mg, Oral, BID Botox 100 units injection gabapentin 300 mg Cap, See Instructions phentermine 37.5 mg Tab, 37.5 mg= 1 tab(s), Oral, Daily topiramate 50 mg Tab, 50 mg= 1 tab(s), Oral, BID, 1 refills Tylenol, 650 mg, Oral, PRN Valtrex 1 g Tab, 1 gm= 1 tab(s), Oral, Daily, 1 refills Allergies Bee Stings (Swelling) morphine (Rash) Social History Alcohol - Denies Alcohol Use, 09/16/2011 Never., 09/06/2024 Substance Abuse - Denies Substance Abuse, 09/16/2011 Never., 09/06/2024 Tobacco - Denies Tobacco Use, 09/16/2011 Never (less than 100 in lifetime) Tobacco Use:. Never Smokeless Tobacco Use:. Cigarettes, Householdtobacc (more content not included)...[facility] CenterComment on above:Result Comment: Electronically Signed By: LIANNA RIOS PA-C\Date and Time Signed: 05/23/2512:52 EDTH&P Updateon 05-04-2025H&P UpdateH&P Update Patient: MONIKA HASKINS Age: 54 years Sex: Female : 1970 Associated Diagnoses: None Author: ROOPA FARIAS, Oseas Ward Basic Information Pre-Op Diagnosis: Overactive Bladder Proposed Surgery: Cystoscopy with Botox 200 units I have reviewed the History and Physical and examined the patient for changes. Based upon my assessment, the patient may proceed with the planned procedure. Health Status Procedure history: Arm-Botox 400u ([id number]) on 02/17/2024 at 53 Years. Cysto/Botox 200 units ([id number]) on 07/08/2023 at 52 Years. Injection of therapeutic substance into bladder wall ([id number]) on 10/11/2022 at 52 Years. Injection of therapeutic substance into bladder wall ([id number]) on 03/30/2019 at 48 Years. Injection of therapeutic substance into bladder wall ([id number]) on 11/10/2018 at 48 Years. Cystourethroscopy with dilation of urethral stricture ([id number]) on 12/09/2017 at 47 Years. Urodynamics ([id number]) on 11/11/2017 at 47 Years. Gallbladder operation ([id number]). 2010. brain biopsy. Social History Social & Psychosocial Habits Alcohol 04/25/2025 Risk Assessment: Denies Alcohol Use 04/25/2025 Use: Never Comment: denies - 01/14/2024 09:43 - Sergio Esteves Substance Abuse 04/25/2025 Risk Assessment: Denies Substance Abuse Tobacco 04/25/2025 Risk Assessment: Denies Tobacco Use 04/25/2025 Tobacco Use: Never (less than 100 in l Smokeless tobacco use: Never Type: Cigarettes Concerns about tobacco use in household: No Smoking Cessation Yes Comment: melecio - 01/14/2024 09:43 - Sergio Esteves Allergies: Allergic Reactions (Selected) Severe Bee Stings- Swelling. Severity Not Documented Morphine- Rash., Allergies (2) Active Severity Reaction Bee Stings Severe Swelling morphine Rash Current medications: (Selected) Prescriptions Prescribed Capmist DM 15 mg-400 mg-60 mg oral tablet: 1 tab(s), Oral, q4hr, 30 tab(s), Refill(s) 0, not to exceed 4 doses/day, [facility]/pharmacy #[id number], 178, cm, 03/17/24 12:53:00 EDT, Height/Length Dosing, 106.8, kg, 03/17/24 12:53:00 EDT, Weight Dosing Gemtesa 75 mg oral tablet: 75 mg = 1 tab(s), Oral, Daily, # 90 tab(s), Refills(s) 3, Pharmacy: [facility]/pharmacy #[id number], 180, cm, 06/01/24 14:27:00 EDT, Height/Length Dosing, 103, kg, 06/01/24 14:27:00 EDT, Weight Dosing Keflex 500 mg Cap: 500 mg = 1 cap(s), Oral, BID, Start the day prior to procedure, # 14 cap(s), Refills(s) 0, Pharmacy: [facility]/pharmacy #[id number], 180, cm, 04/25/25 15:05:00 EDT, Height/Length Dosing, 101.5, kg, 04/25/25 15:05:00 EDT, Weight Dosing [place] 325 mg-5 mg oral tablet: 1 tab(s), Oral, q6hr for pain, 10 tab(s), Refill(s) 0, Pain, [facility]/pharmacy #[id number], 180, cm, 12/14/24 10:04:00 EST, Height/Length Dosing, 101, kg, 12/14/24 10:04:00 EST, Weight Dosing Stye Sterile Lubricant ophthalmic ointment: 1 walter, OPTH, Once a day (at bedtime) for dry eyes, 3.5 gram, Refill(s) 0, [id number], [facility], 02/08/25 10:16:00 EDT, Height/Length Dosing, 99.2, kg, 02/08/25 10:24:00 EDT, Weight Dosing Valtrex 1 g Tab: 1 gm = 1 tab(s), Oral, Daily, # 90 tab(s), Refills(s) 1, [id number] 180, cm, 03/22/25 13:45:00 EDT, Height/Length Dosing, 100.4, kg, 03/22/25 13:45:00 EDT, Weight Dosing Vitamin B-12 1000 mcg oral tablet: 1,000 mcg = 1 tab(s), Oral, Daily, # 30 tab(s), Refills(s) 5, [id number] 177, cm, 07/22/23 13:10:00 EDT, Height/Length Dosing, 102, kg, 07/22/23 13:10:00 EDT, Weight Dosing Wellbutrin XL 150 mg/24 hours Tab-ER: 150 mg = 1 tab(s), Oral, q24hr, # 90 tab(s), Refills(s) 3, [id number] 180, cm, 12/14/24 10:04:00 EST, Height/Length Dosing, 101, kg, 12/14/24 10:04:00 EST, Weight Dosing estradiol 1 mg Tab: 1 mg = 1 tab(s), Oral, Daily, # 90 tab(s), Refills(s) 1, [id number] 180, cm, 09/14/24 10:06:00 EDT, Height/Length Dosing, 107.8, kg, 09/14/24 10:06:00 EDT, Weight Dosing gabapentin 300 mg Cap: See Instructions, TAKE 1 CAPSULE BY MOUTH TWICE A DAY, # 60 cap(s), Refills(s) 0, Pharmacy: [facility] [id number], 180, cm, 03/22/25 13:45:00 EDT, Height/Length Dosing, 100.4, kg, 03/22/25 13:45:00 EDT, Weight Dosing phentermine 37.5 mg Tab: 37.5 mg = 1 tab(s), Oral, Daily, # 30 tab(s), Refills(s) 0, [id number] 180, cm, 04/25/25 15:05:00 EDT, Height/Length Dosing, 101.5, kg, 04/25/25 15:05:00 EDT, Weight Dosing predniSONE 10 mg Tab: See Instructions, TAKE 4TABS BY MOUTH DAILY X3DAYS,3TABS DAILY X3DAYS,2TABS DAILY X3DAYS,1TAB DAILY X3DAYS DIRECTED, # 30 tab(s), Refills(s) 0, Pharmacy: [facility]/pharmacy #[id number], 180, cm, 02/08/25 10:16:00 EDT, Height/Length Dosing, 99.2, kg, 02/08/25 1... topiramate 50 mg Tab: 50 mg = 1 tab(s), Oral, BID, # 180 tab(s), Refills(s) 1, [id number], cm, 12/14/24 10:04:00 EST, Height/Length Dosing, 101, kg, 12/14/24 10:04:00 EST, Weight Dosing topiramate 50 mg Tab: 50 mg = 1 tab(s), Oral, BID, # 60 tab(s), Refills(s) 0, Pharmacy: (more content not included)...[facility] Comment on above:Result Comment: wrong FIN #Main OR Intraoperative Recordon [id number] OR Intraoperative RecordMain OR Intraoperative Record IntraOp Document Type FTURO Summary Primary Physician: Oseas BLAS MD Finalized Date/Time: 05/03/25 14:08:18 Pt. Name: MONIKA HASKINS/Sex: 1970 Female Med Rec #: [id number] Physician: Oseas BLAS MD Financial #: [id number] Pt. Type: O Room/Bed: / Admit/Disch: 05/03/25 13:27:03 - Institution: Case Times FTURO Entry 1 Patient Times In Room 05/03/25 13:54:00 Out Room 05/03/25 14:10:00 Procedure Times Start 05/03/25 13:59:00 Stop 05/03/25 14:05:00 Anesthesia Times Last Modified By: Domenic CHARLES, Tamika Gilliland 05/03/25 14:05:03 General Comments: BOTOX X2 LOT#: [id number], EXP DATE: 08/2027 -Linus RAUSCH RN Case Attendance FTURO Entry 1 Entry 2 Entry 3 Case Attendee ROOPA FARIAS, Oseas Rausch RN, Tamika Sinclair CST, Marjorie Gilliland Role Performed Surgeon - Primary Digital Communications Manager - Primary Scrub - Primary Time In 05/03/25 13:54:00 05/03/25 13:54:00 05/03/25 13:54:00 Time Out 05/03/25 14:10:00 05/03/25 14:10:00 05/03/25 14:10:00 Procedure CYSTOSCOPY LOCAL BOTOX CYSTOSCOPY LOCAL BOTOX CYSTOSCOPY LOCAL BOTOX INJECTION(.) INJECTION(.) INJECTION(.) Comments Last Modified By: Domenic CHARLES, Tamika Rausch RN, Tamika Rausch RN, Tamika Gilliland 05/03/25 Carisa Gilliland 05/03/25 Carisa Gilliland 05/03/25 14:05:07 14:05:07 14:05:07 Surgical Procedures FTURO Entry 1 Procedure Description Procedure CYSTOSCOPY LOCAL BOTOX Modifiers . INJECTION Surgeon Description CYSTOSCOPY BOTOX 200 UNITS Primary Procedure Yes Primary Surgeon ROOPA FARIAS, Oseas Ward Start 05/03/25 13:59:00 Stop 05/03/25 14:05:00 Anesthesia Type Local Surgical Service Urology Wound Class 2 - Clean-Contaminated Last Modified By: Tamika Rausch RN 05/03/25 14:05:06 General Case Data FTURO Pre-Care Text: Classifies surgical wound, implements aseptic technique, initiates traffic control Entry 1 Case Information OR URO 1 FT Case Level None Wound Class 2 - Clean-Contaminated Specialty Urology Preop Diagnosis OVERACTIVE BLADDER Postop Same As Preop Yes Postop Diagnosis OVERACTIVE BLADDER Outcomes Met? Yes Last Modified By: Domenic CHARLES, Tamika Gilliland 05/03/25 13:57:51 Post-Care Text: The patient is free from signs and symptoms of infection EU IntraOp - FTURO Pre-Care Text: Implements protective measures prior to operative or invasive procedure, confirms identity before the operative or invasive procedure, verifies operative procedure, surgical site, and laterality Entry 1 EU Perioperative Protocols Procedure(s) CYSTOSCOPY LOCAL BOTOX Patient Identity Birthday, ID Band INJECTION(.) Verified (select at Check, Patient least 2): Participation Consents / H and P H&P, Surgery/Procedure Operative Site N/A Verified Consent Marking Verified Surgical Site Yes Laterality Verified n/a Verified Procedure Verified Yes Correct Patient Yes Position Verified Availability Equipment, Medication Time Out Oseas BLAS MD, Verified (If Participants Tamika Rausch RN Applicable) Yahir Packer CST, Kimberly A Time Out Complete 05/03/25 13:58:00 Allergies Reviewed? Yes Allergies Reviewed Self/Patient With Body Position High Lithotomy Prep Area PERINEAL AREA Prep Agents Betadine Solution Skin. Condition Unable to Visualize Description PATIALLY CLOTHED AND DRAPED Additional None Specimens Collected Vitals - EU Blood Pressure 136/86 Pulse 100 bpm Respirations 20 br/min SPO2 99 % I&O - EU Outcomes Met? Yes Last Modified By: Tamika Rausch RN 05/03/25 14:01:11 Post-Care Text: The patient is free from signs and symptoms of injury caused by extraneous objects Sign Out FTURO Entry 1 Before Patient Leaves OR Nurse verbally Yes Nurse verbally Yes confirms with the confirms with the team the name of team that the procedure(s) instrument, sponge, recorded and needle counts are correct (or N/A) Nurse verbally n/a Nurse verbally n/a confirms with the confirms with the team how the team whether there specimen is labeled are any equipment (including patient problems to be name), if applicable addressed Sign Out Complete 05/03/25 14:05:00 Last Modified By: Tamika Rausch RN 05/03/25 14:05:05 Case Comments Finalized By: Tamika Rausch RN Document Signatures Signed By: Tamika Rausch RN 05/03/25 14:08[facility] Preoperative Recordon [id number] OR Preoperative RecordMain OR Preoperative Record Holding Area Document Type FTURO Summary Primary Physician: Oseas BLAS MD Finalized Date/Time: 05/03/25 13:57:55 Pt. Name: MONIKA HASKINS /Sex: 1970 Female Med Rec #: [id number] Physician: Oseas BLAS MD Financial #: [id number] Pt. Type: O Room/Bed: / Admit/Disch: 05/03/25 13:27:03 - Institution: Case Times Holding FTURO Pre-Care Text: Verifies consent for planned procedure, identifies individual values and wishes concerning care, includes family members in perioperative teaching Secures patient's records' belongings, and valuables, maintains patient's dignity and privacy, and maintains patient confidentiality Entry 1 In Holding 05/03/25 13:41:00 Outcomes Met? Yes Last Modified By: Randi Woodruff LPN 05/03/25 13:42:00 Post-Care Text: The patient participates in decisions affecting his or her perioperative plan of care The patient'sright to privacy is maintained Surgery Checklist FTURO Entry 1 Patient Birthday, ID Band Procedure History and Physical, Identification: Check, Patient Verification: Surgical Consent, With Participation Patient NPO after Midnight: n/a Limitations: cane Complaints of Pain: No Skin Integrity Intact, [place], Warm, & Dry Vitals - EU Blood Pressure 136/86 Pulse 100 bpm Respirations 18 br/min SPO2 99 % Additional Other (See Comment) Specimens Comment ua dip Specimens Collected Last Modified By: Randi Woodruff LPN 05/03/25 13:42:52 Finalized By: Randi Woodruff LPN Document Signatures Signed By: Randi Woodruff LPN 05/03/25 13:57NoMercer County Community HospitalOperative Reporton [id number] ReportOperative Report Patient: MONIKA HASKINS Age: 54 years Sex: Female : 1970 Associated Diagnoses: None Author: Oseas BLAS MD Procedure Operative Information Details: Date/ Time: 05/03/2025 14:08:00. Pre-Op Dx: Incont/Urge - N39.41. Post-Op Dx: Same. Anesthesia Type: Local. Procedure: Local Cystoscopy with botox injection. Complications: None. Risks/Benefits/Informed Consent: Surgical risks, benefits, details of the procedure have been explained to the patient, Full informed consent has been obtained. Intraoperative Information Prepped: Patient is brought back to the endoscopy suite, Male Prep, Female Prep (Patient is placed in modified dorso/lithotomy position, 5 cc 2% Xylocaine Jelly is placed per Urethra, Straight cath inserted to obtain urine specimen, 60 cc 2% Xylocaine liquid inserted into bladder, 5 additional cc 2% Xylocaine Jelly is placed per Urethra, Patient in sitting position for 20 min dwell), Urine Specime n Results Negative for infection, Patient prepped in the usual fashion with Betadine solution, After waiting several minutes the Cystoscope is introduced. Procedure: The trigone was identified and evaluated, 20 template injection sites were identified, The bladder was instilled with enough saline to achieve adequate visualization for the injections, The needle was inserted approximately 2 mm into the detrusor spaced approximately 1 cm apart, A total of 20 injections with a 1 ml volume was delivered at each site for a total of 200 units of Botox. The Urethra is: Normal. The Bladder is: Normal. The ureteral orifices: Show efflux of clear urine. Devices Implanted: None. Removal: Cystoscope is removed, The patient tolerated it well. Postoperative Information Discharge: Patient is discharged home with antibiotic coverage, Follow up arranged.[facility] Center[facility] above:Result Comment: Electronically Signed By: Oseas BLAS MD\.br\Date and Time Signed: 05/03/25 14:08 EDTAmbulatory Visit Summaryon [id number] Visit Summary Ambulatory Visit Summary MONIKA HASKINS Wes :1970 Visit Date:04/26/2025 Ambulatory Visit Instructions Your Care Team Attending Physician - Oseas BLAS MD Primary Care Physician - Ara Michelle This Is Your Medications List APAP/ASA/caffeine (Excedrin Extra Strength) acetaminophen (Tylenol) acetaminophen-hydrocodone ([place] 325 mg-5 mg oral tablet) baclofen buPROPion (Wellbutrin XL 150 mg/24 hours Tab-ER) cyanocobalamin (Vitamin B-12 1000 mcg oral tablet) dextromethorphan/guaifenesin/pseudoephedrine (Capmist DM 15 mg-400 mg-60 mg oral tablet) estradiol (estradiol 1 mg Tab) gabapentin (gabapentin 300 mg Cap) ocular lubricant (Stye Sterile Lubricant ophthalmic ointment) onabotulinumtoxinA (Botox 100 units injection) phentermine (phentermine 37.5 mg Tab) predniSONE (predniSONE 10 mg Tab) topiramate (topiramate 50 mg Tab) topiramate (topiramate 50 mg Tab) [...] to do next Scheduled Follow-Up Appointments Friday 12:00 PM EDT With: Where: [facility] Friday 2:00 PM EDT With: Where: [facility] Friday 3:00 PM EDT With: LIANNA RIOS PA-C Where: [facility] [address] [place] [address]- Friday 9:40 AM EDT With: Ara Michelle Where: [facility] [address] [address]- Medications What How Much When Why Instructions Unchanged acetaminophen (Tylenol) 650 Milligram By Mouth As needed for as needed for pain Unchanged acetaminophen-hydrocodone ([place] 325 mg-5 mg oral tablet) 1 Tablets By Mouth Every 6 hours as needed for for pain Unchanged APAP/ ASA/ caffeine (Excedrin Extra Strength) 2 Tablets By Mouth Every 6 hours as needed for Headache Unchanged baclofen 10 Milligram By Mouth 2 times a day Oral, 0 Refill(s) Unchanged buPROPion (Wellbutrin XL 150 mg/ 24 hours Tab-ER) 1 Tablets By Mouth Every 24 hours Encounter for weight management Depression Non-smoker BMI 32.0- 32.9,adult Exogenous obesity Unchanged cyanocobalamin (Vitamin B-12 1000 [...] 1 Tablets By Mouth Every day Unchanged gabapentin (gabapentin 300 mg Cap) See instructions TAKE 1 CAPSULE BY MOUTH TWICE A DAY Unchanged ocular lubricant (Stye Sterile Lubricant ophthalmic ointment) 1 Application Ophthalmic Once a day (at bedtime) as needed for for dry eyes Unchanged onabotulinumtoxinA (Botox 100 units injection) 0 Refill(s), Injected every 3 months for spasticity as directed. Unchanged phentermine (phentermine 37.5 mg Tab) 1 Tablets By Mouth Every day Unchanged predniSONE (predniSONE 10 mg Tab) See instructions TAKE 4TABS BY MOUTH DAILY X3DAYS,3TABSDAILY X3DAYS,2TABS DAILY X3DAYS,1TAB DAILY X3DAYS DIRECTED Unchanged topiramate (topiramate 50 mg Tab) 1 Tablets By Mouth 2 times a day Unchanged topiramate (topiramate 50 mg Tab) 1 Tablets By Mouth 2 times a day Unchanged valacyclovir (Valtrex 1 g Tab) 1 Tablets By Mouth Every day Unchanged vibegron (Gemtesa 75 mg oral tablet) 1 Tablets By Mouth Every day Overactive bladder Enuresis Allergies Bee Stings (Swelling) morphine (Rash) Problems Ongoing - Any problem that you are currently receiving treatment for. Adult BMI 33.0-33.9 kg/sq m Reis's palsy BMI 30.0-30.9,adult BMI 31.0-31.9,adult Breast cancer screening Cervical cancer screening Congestion of nasal sinus Elevated WBCs Enuresis Excessive dietary caloric intake Fibroids History of brain tumor History of gestational diabetes Insulin resistance Major depressive disorder, recurrent episode, moderate Nonsmoker Obesity (BMI 30-39.9) Overactive bladder Postinfective urethral stricture in female Recurrent oral herpes simplex Sinusitis Skin infection Historical - Any problem that you are no longer receiving treatment for. Biopsy of brain tissue tumor (more content not included)...[facility] Center[facility] Summaryon [id number] Visit Summary Ambulatory Visit Summary MONIKA HASKINS :1970 Visit Date:04/25/2025 Ambulatory Visit Instructions Your Diagnosis Encounter for weight management BMI 30.0-30.9,adult Your Care Team Attending Physician - Ara Michelle Primary Care Physician - Ara Michelle This Is Your Medications List APAP/ASA/caffeine (Excedrin Extra Strength) acetaminophen (Tylenol) acetaminophen-hydrocodone ([place] 325 mg-5 mg oral tablet) baclofen buPROPion (Wellbutrin XL 150 mg/24 hours Tab-ER) cyanocobalamin (Vitamin B-12 1000 mcg oral tablet) dextromethorphan/guaifenesin/pseudoephedrine (Capmist DM 15 mg-400 mg-60 mg oral tablet) estradiol (estradiol 1 mg Tab) gabapentin (gabapentin 300 mg Cap) ocular lubricant (Stye Sterile Lubricant ophthalmic ointment) onabotulinumtoxinA (Botox 100 units injection) phentermine (phentermine 37.5 mg Tab) predniSONE (predniSONE 10 mg Tab) topiramate (topiramate 50 mg Tab) topiramate (topiramate 50 mg Tab) [...] Gallbladder operation. Discharge Vitals Heart Rate (Peripheral) 97 Respiratory Rate 16 Blood Pressure 122/86 Height 180 cm Height 71 in Weight 101.5 kg Weight 223.769 lb BMI 31.33 What to do next Scheduled Follow-Up Appointments Friday 2:30 PM EDT With: Where: [facility] [address] [address]- Friday 12:00 PM EDT With: Where: [facility] Friday 2:00 PM EDT With: Where: [facility] Friday 3:00 PM EDT With: GABRIEL LUU, LIANNA Rodriguez Where: [facility] [address] [address]- Friday 9:40 AM EDT With: Ara Michelle Where: [facility] [address] [address]- Medications What How Much When Why Instructions Unchanged acetaminophen (Tylenol) 650 Milligram By Mouth As needed for as needed for pain Unchanged acetaminophen-hydrocodone ([place] 325 mg-5 mg oral tablet) 1 Tablets By Mouth Every 6 hours as needed for for pain Unchanged APAP/ ASA/ caffeine (Excedrin Extra Strength) 2 Tablets By Mouth Every 6 hours as needed for Headache Unchanged baclofen 10 Milligram By Mouth 2 times a day Oral, 0 Refill(s) Unchanged buPROPion (Wellbutrin XL 150 mg/ 24 hours Tab-ER) 1 Tablets By Mouth Every 24 hours Encounter for weight management Depression Non-smoker BMI 32.0- 32.9,adult Exogenous obesity Unchanged cyanocobalamin (Vitamin B-12 1000 [...] 1 Tablets By Mouth Every day Unchanged gabapentin (gabapentin 300 mg Cap) See instructions TAKE 1 CAPSULE BY MOUTH TWICE A DAY Unchanged ocular lubricant (Stye Sterile Lubricant ophthalmic ointment) 1 Application Ophthalmic Once a day (at bedtime) as needed for for dry eyes Unchanged onabotulinumtoxinA (Botox 100 units injection) 0 Refill(s), Injected every 3 months for spasticity as directed. Unchanged phentermine (phentermine 37.5 mg Tab) 1 Tablets By Mouth Every day Pickup at [facility]/pharmacy#[id number] Unchanged predniSONE (predniSONE 10 mg Tab) See instructions TAKE 4TABS BY MOUTH DAILY X3DAYS,3TABSDAILY X3DAYS,2TABS DAILY X3DAYS,1TAB DAILY X3DAYS DIRECTED Unchanged topiramate (topiramate 50 mg Tab) 1 Tablets By Mouth 2 times a day Pickup at [facility]/pharmacy#[id number] Unchanged topiramate (topiramate 50 mg Tab) 1 Tablets By Mouth 2 times a day Unchanged valacyclovir (Valtrex 1 g Tab) 1 Tablets By Mouth Every day Unchanged vibegron (Gemtesa 75 mg oral tablet) 1 Tablets By Mouth Every day Overactive bladder Enuresis Pharmacy Information [facility]/pharmacy #[id number]: [address], [place] [id number] [phone] Allergies Bee Stings (Swelling) morphine (Rash) Problems Ongoing - Any problem that you are currently receiving treatment for. Adult BMI 33.0-33.9 kg/sq m Reis's palsy BMI 30.0-30. (more content not included)...[facility] Office/Clinic Noteon [id number] Medicine Office/Clinic NoteFami Medicine Office/Clinic Note HPI Staff Monika is a 54 year old female presenting to discuss weight loss Pt follow up for [place] palsy History of Present Illness pt presents today for follow up. would like to discuss weight loss Review of Systems PHQ Score Initial Depression Screen Score: 1 SCORE Physical Exam Vitals & Measurements HR: 97(Peripheral) RR: 16 BP: 122/86 SpO2: 95% HT: 180 cm HT: 71 in WT: 101.5 kg WT: 223.769 lb BMI: 31.33 General: alert, no acute distress ENMT: oral [...] (Z76.89: Persons encountering health services in other specifiedcircumstances) pt would like to restart adipex and topamax. she is feeling better from Reis's palsy. medication agreement updated. RTC 1 month 2. BMI 30.0-30.9,adult (Z68.30: Body mass index [BMI] 30.0-30.9, adult) will start adipex and topamax again. Orders: gabapentin, See Instructions, TAKE 1 CAPSULE BY MOUTH TWICE A DAY, # 60 cap(s), Refills(s) 0, Pharmacy: [id number], 180, cm, 03/22/25 13:45:00 EDT, Height/Length Dosing, 100.4, kg, 03/22/25 13:45:00 EDT, Weight Dosing gabapentin, See Instructions, TAKE 1 CAPSULE BY MOUTH TWICE A DAY, # 60 cap(s), Refills(s) 0, Pharmacy: [id number], 180, cm, 03/22/25 13:45:00 EDT, Height/Length Dosing, 100.4, kg, 03/22/25 13:45:00 EDT, Weight Dosing phentermine, 37.5 mg = 1 tab(s), Oral, Daily, # 30 tab(s), Refills(s) 0, Pharmacy: [id number], 180, cm, 04/25/25 15:05:00 EDT, Height/Length Dosing, 101.5, kg, 04/25/25 15:05:00 EDT, Weight Dosing topiramate, 50 mg = 1 tab(s), Oral, BID, # 60 tab(s), Refills(s) 0, Pharmacy: [id number], 180, cm, 04/25/25 15:05:00 EDT, Height/Length Dosing, 101.5, kg, 04/25/25 15:05:00 EDT, Weight Dosing Follow-up No qualifying data available Problem List/Past Medical History Ongoing Adult BMI 33.0-33.9 kg/sq m Reis's palsy BMI 30.0-30.9,adult BMI 31.0-31.9,adult Breast cancer screening Cervical cancer screening Congestion of nasal sinus Elevated WBCs Enuresis Excessive dietary caloric intake Fibroids History of brain tumor History of gestational diabetes Insulin resistance Major depressive disorder, recurrent episode, moderate Nonsmoker Obesity (BMI 30-39.9) Overactive bladder Postinfective urethral stricture in female Recurrent oral herpes simplex Sinusitis Skin infection Historical Biopsy of brain tissue tumor Brain tumor Cholecystectomy CS - section Depression Gestational diabetes Gestational diabetes mellitus, class A>2< [...] Extra Strength, 2 tab(s), Oral, q6hr, PRN gabapentin 300 mg Cap, See Instructions Gemtesa 75 mg oral tablet, 75 mg= 1 tab(s), Oral, Daily, 3 refills [place] 325 mg-5 mg oral tablet, 1 tab(s), Oral, q6hr, PRN phentermine 37.5 mg Tab, 37.5 mg= 1 tab(s), Oral, Daily predniSONE 10 mg Tab, See Instructions Stye Sterile Lubricant ophthalmic ointment, 1 walter, OPTH, Once a day (at bedtime), PRN topiramate 50 mg Tab, 50 mg= 1 tab(s), Oral, BID topiramate 50 mg Tab, 50 mg= 1 tab(s), Oral, BID, 1 refills Tylenol, 650 mg, Oral, PRN Valtrex 1 g Tab, 1 gm= 1 tab(s), Oral, Daily, 1 refills Vitamin B-12 1000 mcg oral tablet, 1000 mcg= 1 tab(s), Oral, Daily, 5 refills Wellbutrin XL 150 mg/24 hours Tab-ER, 150 mg= 1 tab(s), Oral, q24hr, 3 refills Allergies Bee Stings (Swelling) morphine (Rash) Social History Alcohol - Denies Alcohol Use, 09/16/2011 Never., 09/06/2024 Substance Abuse - Denies Substance Abuse, 09/16/2011 Never., 09/06/2024 Tobacco - Denies Tobacco Use, 09/16/2011 Never (less than 100 in lifetime) Tobacco Use:. Never Smokeless Tobacco Use:. Cigarettes, Householdtobacco concerns: No. Yes, 11/09/2024 Family History Acute myocardial infarction: (more content not included)...[facility] CenterComment on above:Result Comment: Electronically Signed By: Ara Michelle\.br\Date and Time Signed: 04/25/25 15:18 EDTFamily Medicine Office/Clinic Noteon [id number] Medicine Office/Clinic NoteFamily Medicine Office/Clinic Note HPI Staff Monika is a 54 year old female presenting for 1 month follow up Reis's palsy: Pt states she still continues to have pain on left side of her face, Balance is much better with walking. Pt continues to do therapy, Botox, tens unit, exercises. She has heard that steroid could help would like to discuss having a Kenalog shot. Pt also needs refill on Valtrex had another cold sore. Pt would like to discuss adipex if waiting till her reis's palsy is better History of Present Illness pt presents today to follow up on Reis's palsy, needs refill on some meds, wants to discuss weight management Review of Systems PHQ Score Initial Depression Screen Score: 1 SCORE Physical Exam Vitals & Measurements HR: 80(Peripheral) RR: 18 BP: 122/78 HT: 180.0 cm HT: 71 in WT: 100.4 kg WT: 221.344 lb BMI: 30.99 General: alert, no acute distress ENMT: oral mucosa moist, no pharyngeal erythema or exudate Cardiovascular: regular rate and rhythm, normal peripheral perfusion Respiratory: Lungs CTA, respirations non labored Extremities: no deformity, no trauma Neurological: oriented x 4, LOC appropriate for age, CN II-XII intact, motor strength equal & normal bilaterally, speech normal Assessment/Plan 1. 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 worst complaint is the pain in her face. will give kenlaog in office today. valtrax rx sent in. will take it daily. 2. Recurrent oral herpes simplex (B00.2: Herpesviral gingivostomatitis and pharyngotonsillitis) currently has cold sore. would like to go back to taking Valtrex daily 3. Major depressive disorder, recurrent episode, moderate (F33.1: Major depressive disorder, recurrent, moderate) currently taking wellbutrin 4. BMI 30.0-30.9,adult (Z68.30: Body mass index [BMI] 30.0-30.9, adult) BMI education. will hold off on starting adipex when she starts feeling better. 5. Non-smoker (Z78.9: Other specified health status) continue not smoking Orders: phentermine, 37.5 mg = 1 tab(s), Oral, Daily, bmi 31.17, # 30 tab(s), Refills(s) 0, Pharmacy: [facility]/pharmacy #[id number], 180, cm, 12/14/24 10:04:00 EST, Height/Length Dosing, 101, kg, 12/14/24 10:04:00 EST,Weight Dosing valacyclovir, 1 gm = 1 tab(s), Oral, Daily, # 90 tab(s), Refills(s) 1, Pharmacy: [facility]/pharmacy #[id number], 180, cm, 03/22/25 13:45:00 EDT, Height/Length Dosing, 100.4, kg, 03/22/25 13:45:00 EDT, Weight Dosing valacyclovir, 1 gm = 1 tab(s), Oral, BID, # 20 tab(s), Refills(s) 0, Pharmacy: [facility]/pharmacy #[id number], 180, cm, 02/08/25 10:16:00 EDT, Height/Length Dosing, 99.2, kg, 02/08/25 10:24:00 EDT, Weight Dosing Follow-up No qualifying data available Problem List/Past Medical History Ongoing Adult BMI 33.0-33.9 kg/sq m Reis's palsy BMI 31.0-31.9,adult Breast cancer screening Cervical cancer screening Congestion of nasal sinus Elevated WBCs Enuresis Excessive dietary caloric intake Fibroids History of brain tumor History of gestational diabetes Insulin resistance Major depressive disorder, recurrent episode, moderate Nonsmoker Obesity (BMI 30-39.9) Overactive bladder Postinfective urethral stricture in female Recurrent oral herpes simplex Sinusitis Skin infection Historical Biopsy of brain tissue tumor Brain tumor Cholecystectomy CS - section Depression Gestational diabetes Gestational diabetes mellitus, class A>2< [...] Extra Strength, 2 tab(s), Oral, q6hr, PRN gabapentin 300 mg Cap, 300 mg= 1 cap(s), Oral, BID Gemtesa 75 mg oral tablet, 75 mg= 1 tab(s), Oral, Daily, 3 refills [place] 325 mg-5 mg oral tablet, 1 tab(s), Oral, q6hr, PRN predniSONE 10 mg Tab, See Instructions Stye Sterile Lubricant ophthalmic ointment, 1 walter, OPTH, Once a day (at bedtime), PRN topiramate 50 mg Tab, 50 mg= 1 tab(s), Oral, BID, 1 refills Tylenol, 650 mg, Oral, PRN Valtrex 1 g Tab, 1 gm= 1 tab(s), Oral, Daily, 1 refills Vitamin B-12 1000 mcg oral tablet, 1000 mcg= 1 tab(s), Oral, Daily, 5 refills Wellbutrin XL 150 mg/24 hours Tab-ER, 150 mg= 1 tab(s), Oral, q24hr, 3 refills All (more content not included)...[facility] VA Medical CenterComment on above:Result Comment: Electronically Signed By: Ara Michelle\.br\Date and Time Signed: 03/22/25 14:02 EDTPre-Visit Planningon [id number]-Visit Planning Pre-Visit Planning From: Michelle Manuel To: Ara Michelle; Sent: 03/07/2025 15:20:36 EDT Subject: Pre-Visit Planning Due Date/Time: 03/07/2025 15:20:00 EDT Caller Name: MONIKA HASKINS; Caller Number: Kendra , Kristin Ciro Bullock. During a pre-visit planning chart review, I noted the following documentation in the medical record: Current Problem List: Depression. Current Medication List: bupropion. 10/12/2024 Office Visit Note: Depression (F32.A: Depression, unspecified) pt begins to get tearful during visit and states I feel like I can't control my emotions and I am short with everyone. will start Wellbutrin. RTC 4 weeks to follow up. 11/09/2024 Office Visit Note: Depression (F32.A: Depression, unspecified) pt is feeling much bettersince starting wellbutrin. she is able to get through her days without crying for no reason. *No PHQ-9 Score located in Cerner. Based on your medical judgment, can you please clarify which, if any, of the following conditions are present? I can update the Chronic Problem List with your response if you would like. Major Depressive Disorder, Single Episode ??? Major depressive disorder, single episode, mild ??? Major depressive disorder, single episode, moderate ??? Major depressive disorder, single episode, severe without mention of psychotic behavior ??? Major depressive disorder, single episode, severe specified as with psychotic behavior ??? Major depressive disorder, single episode, in partial remission ??? Major depressive disorder, single episode in full remission Major Depressive Disorder, Recurrent ??? Major depressive disorder, recurrent, mild ??? Major depressive disorder, recurrent, moderate ??? Major depressive disorder, recurrent, severe without mention of psychotic behavior ??? Major depressive disorder, recurrent, severe specified as with psychotic behavior ??? Major depressive disorder, recurrent, in partial remission ??? Major depressive disorder, recurrent, in full remission -Other (Please Specify): In responding to this request, please exercise your independent professional judgement. The fact that a question is asked does not imply that any particular answer is desired or expected. If you have any questions, please feel free to contact me at extension [phone]. Thank you! Michelle Manuel LPN Clinical Paper Reel Operator [place] [phone] Extension: [phone] [email or web address] From: Ara Michelle To: Michelle Manuel; Sent: 03/08/2025 10:07:27 EDT Subject: RE: Pre-Visit Planning Caller Name: MONIKA HASKINS Wes; Caller Number: , major depressive disorder, recurrent moderatNormalClermont County HospitalCBC w/ Auto Diffon 01-39-7196Hrlalusng/100 WBC (Bld)0.7 %Normal0.0-2.0Cl[facility] County HospitalComment on above:Performed By: #### [id number] ####[place], [place] [address]Basophils/Leukocytes Auto (Bld) [Pure # fraction]0.1 E9/LNormal0.0-0.2[facility] Comment on above:Performed By: #### [id number] ####[place] [address] [address]Zzvfuwywslg (Bld) [#/Vol]0.1 E9/L Normal0.0-0.5FBethesda North HospitalComment on above:Performed By: #### [id number] ####[address] [address]Ahefkflwpgi/100 WBC (Bld)0.8 %Normal0.0-8.0[facility] Comment on above:Performed By: #### [id number] ####[address] [address]Ihwgxlarwbr distribution width (RBC) [Ratio]13.8 %Wulacp00.9-14.2FBethesda North HospitalComment on above: Performed By: #### [id number] ####[address] [address]Bytwiagqai (Bld) [Volume fraction]43.9 %Normal 34.0-46.0Cl[facility] HospitalComment on above:Performed By: #### [id number] ####[address] [address] Hemoglobin (Bld) [Mass/Vol]14.5 g/zLLgfyuu40.0-16.0[facility] Comment on above:Performed By: #### [id number] ####[address] [address]Vrijuyylqke (Bld) [#/Vol]1.3 E9/L Normal1.0-4.0[facility] HospitalComment on above:Performed By: #### [id number] ####[address] [address]Cvaegfdvhmt/100 WBC (Bld)17.3 %Vkahkz73.0-50.0[facility] Comment on above:Performed By: #### [id number] ####[address] [address]IAG (RBC) [Entitic mass]28.7 pgNormal 27.0-34.0[facility] HospitalComment on above:Performed By: #### [id number] ####[address] [address]QUFN (RBC) [Mass/Vol]33.0 g/pDQeosqs46.4-36.0[facility] HospitalComment on above:Performed By: #### [id number] ####[address] [address]ZEM (RBC) [Entitic vol]87.1 oQMybfte49.0-100.0 [facility] HospitalComment on above:Performed By: #### [id number] ####[address] [address] Monocytes (Bld) [#/Vol]0.6 E9/LNormal0.2-1.0[facility] HospitalComment on above:Performed By: #### [id number] ####[address] [address]Ocmhyxjmjuy (Bld) [#/Vol]5.7 E9/L Normal2.0-7.5FBethesda North HospitalComment on above:Performed By: #### [id number] ####[address] [address]Xthbkmpwtfj/100 WBC (Bld)73.8 %Ufykvt56.0-75.0[facility] Comment on above:Performed By: #### [id number] ####[address] [address] mean volume (Bld) [Entitic vol]11.2 fLHigh6.4-10.8Cl[facility] HospitalComment on above:Performed By: #### [id number] ####[address] [address]Bteujmqoh (Bld) [#/Vol]219.0 E9/FMfxfvb187.0-500.0Cl[facility] HospitalComment on above:Performed By: #### [id number] ####[facility] [address] [place], [place] [address]NCB (Bld) [#/Vol]5.0 E12/L Normal4.3-5.9[facility] HospitalComment on above:Performed By: #### [id number] ####[place] [address] [place], [place] [address]ILI corrected for nucl RBC Auto (Bld) [#/Vol]7.8 E9/LNormal4.0-11.0Cl[facility] County HospitalComment on above:Result Comment: Peripheral smear review performed.Performed By: #### [id number] ####[facility] [address] [place], [place] [address] Office/Clinic Noteon 84-48-0412Ilzztb Medicine Office/Clinic NoteFami Medicine Office/Clinic Note HPI Staff Monika is a 54 year old female presenting for 3 month follow up Pt hasn't taken adipex on 3-4 weeks with being sick and having bells palsy pt here today to discuss her bells palsy, pt was unsteady on her feet help her get to the room. Onset 2 weeks left ear pain going down down pain, swelling has gone down, does have intermittent shooting pain in ear. History of Present Illness pt presents today for weight management Review of Systems PHQ Score Initial Depression Screen Score: 0 SCORE Physical Exam Vitals & Measurements HR: 116(Peripheral) RR: 18 BP: 128/88 SpO2: 96% HT: 71 in HT: 180.0 cm WT: 99.15 kg WT: 218.588 lb BMI: 30.6 General: alert, no acute distress ENMT: oral mucosa moist, no pharyngeal erythema or exudate Cardiovascular: regular rate and rhythm, normal peripheral perfusion Respiratory: Lungs CTA, respirations non labored Extremities: no deformity, no trauma Neurological: oriented x 4, LOC appropriate for age, CN II-XII intact, motor strength equal & normal bilaterally, speech normal Assessment/Plan 1. 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 will refill valtrex and prednisone. pt is also having severe pain of the nerves in face. will send gabapentin to help with nerve pain. Ordered: gabapentin, 300 mg = 1 cap(s), Oral, BID, # 60 cap(s), Refills(s) 0, [id number], cm, 02/08/25 10:16:00 EDT, Height/Length Dosing, 99.2, kg, 02/08/25 10:24:00 EDT, Weight Dosing CBC w/ Auto Diff Lab Specimen Collect [id number] 2. Elevated WBCs (D72.829: Elevated white blood cell count, unspecified) pt WBC's were elevated at ER on 01/25/25. will recheck in office today. Ordered: gabapentin, 300 mg = 1 cap(s), Oral, BID, # 60 cap(s), Refills(s) 0, [id number] 180, cm, 02/08/25 10:16:00 EDT, Height/Length Dosing, 99.2, kg, 02/08/25 10:24:00 EDT, Weight Dosing CBC w/ Auto Diff 3. BMI 30.0-30.9,adult (Z68.30: Body mass index [BMI] 30.0-30.9, adult) BMI education given Ordered: gabapentin, 300 mg = 1 cap(s), Oral, BID, # 60 cap(s), Refills(s) 0, [id number], 180, cm, 02/08/25 10:16:00 EDT, Height/Length Dosing, 99.2, kg, 02/08/25 10:24:00 EDT, Weight Dosing CBC w/ Auto Diff 4. Non-smoker (Z78.9: Other specified health status) continue not smoking Ordered: gabapentin, 300 mg = 1 cap(s), Oral, BID, # 60 cap(s), Refills(s) 0, Pharmacy: [facility]/pharmacy #[id number], 180, cm, 02/08/25 10:16:00 EDT, Height/Length Dosing, 99.2, kg, 02/08/25 10:24:00 EDT, Weight Dosing CBC w/ Auto Diff Orders: predniSONE, 0 = 1 -, Oral, As Directed, Take 4 tabs by mouth daily x3 days, 3 tabs daily x3 days, 2tabs daily x3 days, then 1 tab daily x3 days., # 30 tab(s), Refills(s) 0, [id number], 180, cm, 12/14/24 10:04:00 EST, Height/Length Dosing, 101,... predniSONE, See Instructions, TAKE 4TABS BY MOUTH DAILY X3DAYS,3TABS DAILY X3DAYS,2TABS DAILY X3DAYS,1TAB DAILY X3DAYS DIRECTED, # 30 tab(s), Refills(s) 0, Pharmacy: [facility]/pharmacy #[id number], 180, cm, 02/08/25 10:16:00 EDT, Height/Length Dosing, 99.2, kg, 02/08/25 1... valacyclovir, 1 gm = 1 tab(s), Oral, BID, # 20 tab(s), Refills(s) 0, [id number], 178, cm, 03/17/24 12:53:00 EDT, Height/Length Dosing, 106.8, kg, 03/17/24 12:53:00 EDT, Weight Dosing valacyclovir, 1 gm = 1 tab(s), Oral, BID, # 20 tab(s), Refills(s) 0, [id number], 180, cm, 02/08/25 10:16:00 EDT, Height/Length Dosing, 99.2, kg, 02/08/25 10:24:00 EDT, Weight Dosing Follow-up No qualifying data available Problem List/Past Medical History Ongoing Adult BMI 33.0-33.9 kg/sq m Advanced maternal age patient Reis's palsy BMI 31.0-31.9,adult Breast cancer screening Bronchitis Cervical cancer screening Congestion of nasal sinus Cough Depression Dysuria Elevated WBCs Encounter for weight management Enuresis Excessive dietary [...] bladder wall (11/10/2018), Cystourethroscop (more content not included)...NormalClermont County HospitalComment on above:Result Comment: Electronically Signed By: Ara Michelle\.br\Date and Time Signed: 02/08/25 11:14 EDTHEMATOLOGYOrdered By: SYSTEM SYSTEM on 20-71-2137Iqvsrgqve/100 WBC (Bld)0.7 %Normal0.0 - 2.0 % Remisol HemeBasophils/Leukocytes Auto (Bld) [Pure # fraction]0.1 E9/LNormal0.0 - 0.2 E9/LRemisol HemeEosinophils (Bld) [#/Vol]0.1 E9/LNormal0.0 - 0.5 E9/LRemisol HemeEosinophils/100 WBC (Bld)0.8 %Normal0.0 - 8.0 %Remisol HemeErythrocyte distribution width (RBC) [Ratio]13.8 %Yyozmx69.9 - 14.2 %Remisol HemeHematocrit (Bld) [Volume fraction]43.9 %Efctug56.0 - 46.0 %Remisol HemeHemoglobin (Bld) [Mass/Vol]14.5 g/tZWyphpp85.0 - 16.0 gm/dLRemisol HemeLymphocytes (Bld) [#/Vol] 1.3 E9/LNormal1.0 - 4.0 E9/LRemisol HemeLymphocytes/100 WBC (Bld)17.3 %Normal 14.0 - 50.0 %Remisol HemeMCH (RBC) [Entitic mass]28.7 byXkjosi92.0 - 34.0 pg Remisol HemeMCHC (RBC) [Mass/Vol]33.0 g/mUMkgvuw04.4 - 36.0 gm/dLRemisol HemeMCV (RBC) [Entitic vol]87.1 wSXovrkg74.0 - 100.0 fLRemisol HemeMonocytes (Bld) [#/Vol]0.6 E9/LNormal0.2 - 1.0 E9/LRemisol HemeMonocytes/100 WBC (Bld)7.4 % Normal4.0 - 14.0 %Remisol HemeNeutrophils (Bld) [#/Vol]5.7 E9/LNormal2.0 - 7.5 E9/LRemisol HemeNeutrophils/100 WBC (Bld)73.8 %Lvifzp26.0 - 75.0 %Remisol Heme Platelet mean volume (Bld) [Entitic vol]11.2 fLHigh6.4 - 10.8 fLRemisol Heme Platelets (Bld) [#/Vol]219.0 E9/ECavstw880.0 - 500.0 E9/LRemisol HemeRBC (Bld) [#/Vol]5.0 E12/LNormal4.3 - 5.9 E12/LRemisol HemeWBC corrected for nucl RBC Auto (Bld) [#/Vol]7.8 E9/LNormal4.0 - 11.0 E9/LRemisol HemeComment on above:Result Comment: Peripheral smear review performed.Ambulatory Visit Summaryon 01-24-2025 Ambulatory Visit SummaryAmbulatory Visit Summary MONIKA HASKINS :1970 Visit Date:01/24/2025 Ambulatory Visit Instructions Your Diagnosis Skin infection Sinusitis Your Care Team Attending Physician - Ara Michelle Primary Care Physician - Ara Michelle This Is Your Medications List APAP/ASA/caffeine (Excedrin Extra Strength) acetaminophen (Tylenol) amoxicillin-clavulanate (Augmentin 875 mg oral tablet) baclofen buPROPion (Wellbutrin XL 150 mg/24 hours Tab-ER) cyanocobalamin (Vitamin B-12 1000 mcg oral tablet) dextromethorphan/guaifenesin/pseudoephedrine (Capmist DM 15 mg-400 mg-60 mg oral [...] 10:20 AM EDT With: Ara Michelle Where: [address] [address]- Friday 11:00 AM EDT With: Where: [address] [address]- Medications What How Much When Why Instructions New amoxicillin-clavulanate (Augmentin 875 mg oral tablet) 1 Tablets By Mouth Every 12 hours Skin infection Sinusitis Duration: 10 Days Pickup at [facility]/pharmacy #[id number] New predniSONE (predniSONE 10 mg Tab) 1 Dose Separtor By Mouth As Directed Skin infection SinusitisTake 4 tabs by mouth daily x3 days, 3 tabs daily x3 days, 2 tabs daily x3 days, then 1 tab daily x3days. Pickup at [facility]/pharmacy #6146 Unchanged acetaminophen (Tylenol) 650 Milligram By Mouth [...] Encounter for weight management Depression Non-smoker BMI 32.0- 32.9,adult Exogenous obesity Unchanged cyanocobalamin (Vitamin B-12 1000 [...] Mouth Every day Overactive bladder Pharmacy Information [facility]/pharmacy #[id number]: [address], [place] [id number] [phone] Allergies Bee Stings (Swelling) morphine (Rash) Problems [...] awareness Nocturia Nocturnal enuresis (more content not included)...[facility] Medicine Office/Clinic Noteon 40-96-1649Cwxilx Medicine Office/Clinic NoteWorcester City Hospital Medicine Office/Clinic Note HPI Staff This visit was conducted via two-way, real-time interactive video communications by Ara Michelle from my office using Placed. The patient was located at their home, located at [address] [place] [phone], with _ in attendance. A signed authorization for treatment has been obtained via our standard authorization packet or by verbal consent by the patient or their legal dental detail representative. The patient's identity and location in [place] has been verified by our office staff.If it is determined that the patient should [...] with augmentin and steroid dose pack. Ordered: amoxicillin-clavulanate, = 1 tab(s), Oral, q12hr, X 10 day(s), # 20 tab(s), Refills(s) 0, Pharmacy:[facility]/pharmacy #[id number], 180, cm, 12/14/24 10:04:00 EST, Height/Length Dosing, 101, kg, 12/14/24 10:04:00 EST, Weight Dosing predniSONE, 0 = 1 -, Oral, As Directed, Take 4 tabs by mouth daily x3 days, 3 tabs daily x3 days, 2tabs daily x3 days, then 1 tab daily x3 days., # 30 tab(s), Refills(s) 0, [id number] 180, cm, 12/14/24 10:04:00 EST, Height/Length Dosing, 101,... 2. Sinusitis (J32.9: Chronic sinusitis, unspecified) see above Ordered: amoxicillin-clavulanate, = 1 tab(s), Oral, q12hr, X 10 day(s), # 20 tab(s), Refills(s) 0, [id number] 180, cm, 12/14/24 10:04:00 EST, Height/Length Dosing, 101, kg, 12/14/24 10:04:00 EST, Weight Dosing predniSONE, 0 = 1 -, Oral, As Directed, Take 4 tabs by mouth daily x3 days, 3 tabs daily x3 days, 2tabs daily x3 days, then 1 tab daily x3 days., # 30 tab(s), Refills(s) 0, [id number] 180, cm, 12/14/24 10:04:00 EST, Height/Length [...] tab(s), Oral, Daily pr (more content not included)...[facility] Medical CenterComment on above:Result Comment: Electronically Signed By: Ara Michelle\.br\Date and Time Signed: 01/24/25 11:54 ESTALL CBC WITH AUTO DIFFon 65-75-2762LKRISUZEC ABSOLUTE AUTO0.1NOMS HealthcareBasophils/100 WBC (Bld)0.8 %0.2 - 2.0 %NOMS HealthcareEosinophils/100 WBC (Bld)2.4 %0.9 - 7.0 %NOMS HealthcareErythrocyte distribution width (RBC) [Ratio]12.7 %11.0 - 15.0 %NOMS HealthcareHematocrit (Bld) [Volume fraction]43.8 %36.0 - 48.0 %NOMS HealthcareHemoglobin (Bld) [Mass/Vol]13.9 g/dL12.0 - 16.0 g/dLNOMS HealthcareIMMATURE GRANULOCYTES ABS AUTO 0NOMS HealthcareImmature granulocytes/100 WBC (Bld)0 %0.0 - 0.5 %[facility] LYMPHOCYTES ABSOLUTE AUTO1.8NOMS Samaritan HospitalLymphocytes/100 WBC (Bld)31 %20.5 - 60.0 %[facility] SystemMCH (RBC) [Entitic mass]28.1 pg26.7 - 34.0 pgNOMS Samaritan HospitalMCHC (RBC) [Mass/Vol]31.7 g/dL29.9 - 35.2 g/dLNOI-70 Community HospitalMCV (RBC) [Entitic vol]88.5 fL81.0 - 99.0 fLNOMS HealthcareMONOCYTES ABSOLUTE AUTO0.6NOMS HealthcareMonocytes/100 WBC (Bld)9.6 %1.7 - 12.0 %[facility] HealthcareNEUTROPHILS ABSOLUTE AUTO3.3NOMS HealthcareNeutrophils/100 WBC (Bld)56.2 %43.0 - 75.0 %[facility] Health SystemPlatelet mean volume (Bld) [Entitic vol]11.8 fL9.5 - 13.5 fLNOMS Samaritan HospitalTBH EO #0.1NOMS Samaritan HospitalTB DFU760HIGC Samaritan HospitalTB RBC4.95NOMS Samaritan HospitalTB WBC5.9NOMS HealthcareCLINISYNCNOMS Samaritan HospitalLon 12-31-2024 Specimen: [id number] Received: 01/03/25 Status: VIRGILIO Raymond Num: [id number] Spec Type: Surgical Subm Dr: Carter Agosto Tissues: A Endometrial Polyp (ENDOMETRIAL POLYP) Procedures: HE/4, Gross/Micro L4 Age/ Patient Sex Location Account Attending Physician Monika Haskins 54/F LABELL [id number] Carter Agosto SPEC NUM: [id number] RECD: 01/03/25 STATUS: VIRGILIO RAYMOND NUM: [id number] ELIAN: 12/31/24-1149 [facility] DR: Carter Agosto ENTERED: 01/03/25 [facility] DR: Saulo,Lab SPEC TYPE: Surgical DEPT: JAMAAL [...] Description Microscopic examination is performed. CPT Codes 98398 Specimen: [id number] Received: 01/03/25 Status: VIRGILIO Raymond Num: [id number] Spec Type: Surgical Subm Dr: Carter Agosto Tissues: A Endometrial Polyp (ENDOMETRIAL POLYP) Procedures: Aure ALEXANDER/Salo L4 Patient: Monika Haskins [id number] (Continued) Signed (signature on file) Cristóbal Nye MD 01/04/25 1105Normal [facility] GroupCOR[facility]ST[facility] 12-LEADon [id number] [address] Electrocardiograph Report Signed Patient: MONIKA HASKINS MR#: [id number] : 1970 Acct:[id number] Age/Sex: 54 / F ADM Date: 12/28/24 Loc: PST Attending Dr: Carter Agosto D.O. Ordering Physician: Carter Agosto D.O. 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 Signed By: 12/28/241941 DD/ 7 TD/TT: Staff Development Educator:TBHRadiology, Radiologist, - 12/28/2024 [place] [address] Electrocardiograph Report Signed Patient: MONIKA HASKINS MR#: [id number] : 1970 Acct:[id number] Age/Sex: 54 / F ADM Date: 12/28/24 Loc: PST Attending Dr: Carter Agosto D.O. Ordering Physician: Carter Agosto D.O. 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 Signed By: 12/28/241941 DD/ 7 TD/TT: Staff Development Educator: LING HealthcareRadiology Study observation (narrative)[facility] SystemEC 12-LEAD Ordered By: Radiologist Radiology on 90-21-3209PX[facility] Work Phone: aLL LDHon [phone] [Catalytic activity/Vol]183 U/L81 - 234 U/LNOMS HealthcareCLINISYNCNOMS HealthcareCNOVon 48-69-5721XFVO Office Visit (REHAV) MONIKA HASKINS ([id number]) 1970 F Date Time Provider Department 12/15/24 [...] skin should be examined by a health residential caregiver to rule out infection. If you experience pain in the muscles injected over the next few days, you can take Tylenol to control the pain (unless contra-indicated). Please call our office at [phone] with any questions or concerns. MD Dianna [...] MD The risks, be (more content not included)...NormalNationwide Children'S Hospital Office/Clinic Noteon [id number] Office[facility] NoteF[facility] Medicine Office/Clinic Note Chief Complaint 1m weight [...] (Z76.89: Persons encountering health services in other specifiedcircumstances) pt is down another 5 pounds. is doing great. states this is the lowest she has been in many many years. will send refill. RTC 3 months Ordered: phentermine, 37.5 mg = 1 tab(s), Oral, Daily, # 30 tab(s), Refills(s) 0, [id number], cm, 11/09/24 10:37:00 EST, Height/Length Dosing, 102.2, kg, 11/09/24 10:37:00 EST, Weight Dosing phentermine, 37.5 mg = 1 tab(s), Oral, Daily, # 30 tab(s), Refills(s) 0, [id number], 180, cm, 10/12/24 10:29:00 [...] Tobacco Use:. Never Smokeless Tobacco Use:. Cigarettes, Householdtobacco concerns: No. Yes, 11/09/2024 Family History Acute myocardial infarction: Negative: Father. Diabetes mellitus: Mother and Father. Heart diseas (more content not included)...[facility] Comment on above:Result Comment: Electronically Signed By: Ara Michelle\.br\Date and Time Signed: 11/09/24 12:01 ESTAmbulatory Visit Summaryon [id number] Visit SummaryAmbulatory Visit Summary MONIKA HASKINS :1970 Visit Date:10/12/2024 Ambulatory Visit Instructions Your Diagnosis Non-smoker BMI 32.0-32.9,adult Exogenous obesity Your Care Team Attending Physician - Ara Michelle Primary Care Physician - Ara Michelle This Is Your Medications List APAP/ASA/caffeine (Excedrin Extra Strength) acetaminophen (Tylenol) baclofen cyanocobalamin (Vitamin B-12 1000 mcg oral tablet) dextromethorphan/guaifenesin/pseudoephedrine (Capmist DM 15 mg-400 mg-60 mg oral [...] 10:20 AM EST With: Ara Michelle Where: [address] [address]- 2024 9:30 AM EST With: Where: [address] [address]- Medications What How Much When Why Instructions [...] you for choosing us for your care. [facility] Medicine Office/Clinic Noteon [id number] Medicine Office/Clinic NoteFataravista [facility] center Medicine Office/Clinic Note HPI Staff Monika is [...] (Z76.89: Persons encountering health services in other specifiedcircumstances) pt is down 7 pounds doing very well and feeling good. has been exercising. RTC 1 month Ordered: buPROPion, 150 mg = 1 tab(s), Oral, q24hr, # 30 tab(s), Refills(s) 2, [id number],180, cm, 10/12/24 10:29:00 EST, Height/Length Dosing, 104.6, kg, 10/12/24 10:29:00 EST, Weight Dosing phentermine, 37.5 mg = 1 tab(s), Oral, Daily, # 30 tab(s), Refills(s) 0, [facility]acy: [id number], 180, cm, 09/14/24 10:06:00 EDT, Height/Length Dosing, 107.8, kg, 09/14/24 10:06:00 EDT, Weight Dosing phentermine, 37.5 mg = 1 tab(s), Oral, Daily, # 30 tab(s), Refills(s) 0, [id number] 180, cm, 10/12/24 10:29:00 EST, Height/Length [...] q24hr, # 30 tab(s), Refills(s) 2, [id number],180, cm, 10/12/24 10:29:00 EST, Height/Length Dosing, 104.6, kg, 10/12/24 10:29:00 EST, Weight Dosing 3. Non-smoker (Z78.9: Other specified health status) continue not smoking Ordered: buPROPion, 150 mg = 1 tab(s), Oral, q24hr, # 30 tab(s), Refills(s) 2, [id number], cm, 10/12/24 10:29:00 EST, Height/Length Dosing, 104.6, kg, 10/12/24 10:29:00 EST, Weight Dosing topiramate, 25 mg = 1 tab(s), Oral, Daily, # 90 tab(s), Refills(s) 1, [id number], cm, 09/14/24 10:06:00 EDT, Height/Length Dosing, 107.8, kg, 09/14/24 10:06:00 EDT, Weight Dosing 4. BMI 32.0-32.9,adult (Z68.32: Body mass index [BMI] 32.0-32.9, adult) BMI education. pt is down 7 more pounds Ordered: buPROPion, 150 mg = 1 tab(s), Oral, q24hr, # 30 tab(s), Refills(s) 2, [id number], cm, 10/12/24 10:29:00 EST, Height/Length Dosing, 104.6, kg, 10/12/24 10:29:00 EST, Weight Dosing 5. Exogenous obesity (E66.09: Other obesity due to excess calories) see above Ordered: buPROPion, 150 mg = 1 tab(s), Oral, q24hr, # 30 tab(s), Refills(s) 2, [id number],180, cm, 10/12/24 10:29:00 EST, Height/Length Dosing, 104.6, kg, 10/12/24 10:29:00 EST, Weight Dosing Orders: topiramate, 50 mg = 1 tab(s), Oral, BID, # 60 tab(s), Refills(s) 2, [id number], 180, cm, 10/12/24 10:29:00 [...] into bladder wall (11/10/2018), (more content not included)...[facility] Center[facility]:Result Comment: Electronically Signed By: Ara Michelle\.mark\Date and Time Signed: 10/12/24 10:49 [facility] Medicine Office/Clinic Noteon 93-43-1925M[facility] Medicine Office/Clinic NoteFataravista [facility] Medicine Office/Clinic Note HPI Staff Monika is [...] (Z76.89: Persons encountering health services in other specifiedcircumstances) pt is up a couple pounds but has been out of meds for a couple weeks. will send adipex and topamax to pharmacy. RTC 4 weeks Ordered: phentermine, 37.5 mg = 1 tab(s), Oral, Daily, # 30 tab(s), Refills(s) 0, [id number], 180, cm, 09/14/24 10:06:00 EDT, Height/Length Dosing, 107.8, kg, 09/14/24 10:06:00 EDT, Weight Dosing phentermine, 37.5 mg = 1 tab(s), Oral, Daily, # 30 tab(s), Refills(s) 0, [id number], 180, cm, 07/29/24 8:33:00 EDT, Height/Length Dosing, 106.2, kg, 07/29/24 8:33:00 EDT, Weight Dosing 2. BMI 33.0-33.9,adult (Z68.33: Body mass index [BMI] 33.0-33.9, adult) BMI education given Ordered: topiramate, 25 mg = 1 tab(s), Oral, Daily, # 90 tab(s), Refills(s) 1, [id number],180, cm, 09/14/24 10:06:00 EDT, Height/Length Dosing, 107.8, kg, 09/14/24 10:06:00 EDT, Weight Dosing 3. Non-smoker (Z78.9: Other specified health status) continue not smoking Ordered: topiramate, 25 mg = 1 tab(s), Oral, Daily, # 90 tab(s), Refills(s) 1, [id number], cm, 09/14/24 10:06:00 EDT, Height/Length Dosing, 107.8, kg, 09/14/24 10:06:00 EDT, Weight Dosing Orders: estradiol, 1 mg = 1 tab(s), Oral, Daily, # 90 tab(s), Refills(s) 1, [id number] 180, cm, 09/14/24 10:06:00 EDT, Height/Length [...] (Rash) Social History Al[place] (more content not included)...[facility] CenterComment on above:Result Comment: Electronically Signed By: Ara Michelle.mark\Date and Time Signed: 09/14/24 10:37 Brittany 36-49-1254DWUFIokzbd Visit (REHAV) MONIKA HASKINS ([id number]) 1970 F Date Time Provider Department 09/08/24 [...] skin should be examined by a health residential caregiver to rule out infection. If you experience pain in the muscles injected over the next few days, you can take Tylenol to control the pain (unless contra-indicated). Please call our office at [phone] with any questions or concerns. MD Dianna [...] Obtained: yes - 10/25 (more content not included)...Normal [facility] Urineon 83-27-6953Nraiqkib identified Cx Nom (U) Microbiology PROCEDURE: Urine [...] or tested, I=Intermediate, ESBL=Extended spectrum beta-lactamase, R=Resistant, TFG=Thymidine-dependent strain, TEJA=Beta-lactamase positive, JAYDE=mcg/m;(mg/L), S*=Predicted susceptible interp, [...] Locations R1: This test was performed at: [facility], [address] [place] [address], [address] , , CtpaneCrtujyTogus VA Medical CenterComment on above:Performed By: #### [id number] #### [facility] [address] [place] [id number] Brain WO and W contrast Lynda 97-68-1324NXHMBUUYDV: 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 Staff Development Educator: PAUL Transcribe Date/Time: Apr 16 2024 3:47P Dictated by : CHICO GUALLPA MD This examination was interpreted and the report reviewed and electronically signed by: CHICO GUALLPA MD on Apr 16 2024 3:57PM [facility] DIVISION OF RADIOLOGY* * *Final Report* * * DATE OF EXAM: Apr 16 2024 3:05PM CAM 0295 - MRI BRAIN WO/W IVCON / PROCEDURE REASON: multiple diagnoses * * * * Physician Interpretation * * * * EXAMINATION: MRI BRAIN WO/W IVCON CLINICAL HISTORY: Brain tumor (HCC) AL amyloidosis (HCC) - - - Primary neoplasm/metastasis/postop F/U - Brain/PRODUCE SORTER neoplasm, assess treatment response. Upon further review [...] extracranial soft tissues are unremarkable. DIVISION OF RADIOLOGYProvider, [facility] - [facility] * * *Final Report* * * DATE OF EXAM: Apr 16 2024 3:05PM CAM 0295 - MRI BRAIN WO/W IVCON / PROCEDURE REASON: multiple diagnoses * * * * Physician Interpretation * * * * EXAMINATION: MRI BRAIN WO/W IVCON CLINICAL HISTORY: Brain tumor (HCC) AL amyloidosis (HCC) - - - Primary neoplasm/metastasis/postop F/U - Brain/PRODUCE SORTER neoplasm, assess treatment response. 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 Staff Development Educator: PSYCHIATRIC Transcribe Date/Time: Apr 16 2024 3:47P Dictated by : CHICO GUALLPA MD This examination was interpreted and the report reviewed and electronically signed by: CHICO GAULLPA MD on Apr 16 2024 3:57PM EST [facility] HospitalRad[facility] observation (narrative)[facility] Brain WO and W contrast IVOrdered By: Ccf Provider on 14-55-8817[facility] CHEMISTRYOrdered By: SYSTEM SYSTEM on 85-83-4941Kscvbua [Mass/Vol]4.5 g/dLNormal 3.3 - 5.0 gm/dLFTMC RemisolAlbumin/Globulin [Mass ratio]1.2 {ratio}Normal1.1 - 2.2[facility] RemisolALP [Catalytic activity/Vol]53 [iU]/gStsgtj99 - 98 Int._Unit/L [facility] RemisolALT No additional P-5'-P [Catalytic activity/Vol]13 [iU]/dNormal6 - 46 Int._Unit/LFTMC RemisolAnion gap [Moles/Vol]14 mmol/LNormal6 - 16 mEq/LFTMC RemisolAST [Catalytic activity/Vol]21 [iU]/dNormal5 - 43 Int._Unit/LFTMC Remisol Bilirubin [Mass/Vol]0.4 mg/dLNormal0.0 - 1.1 mg/dLFTMC RemisolCalcium [Mass/Vol] 9.7 mg/dLNormal8.9 - 11.1 mg/dLFTMC RemisolChloride [Moles/Vol]106 mmol/LNormal 101 - 111 mmol/LFTMC RemisolCholesterol [Mass/Vol]196 mg/aCOfesci083 - 200 mg/dL [facility] RemisolCholesterol in HDL [Mass/Vol]55 mg/dLInvalid Interpretation CodeFTMC RemisolCholesterol in LDL [Mass/Vol]124 mg/dLNormal<=129mg/dLFTMC Remisol Cholesterol in VLDL [Mass/Vol]17 mg/dLNormal7 - 40 mg/dLFTMC RemisolCO2 [Moles/Vol]24 mmol/HQiuagu16 - 31 mmol/LFTMC RemisolCreatinine [Mass/Vol]0.7 mg/dLNormal0.5 - 1.3 mg/dLFTMC RemisolGFR/1.73 sq M.predicted among non-blacks MDRD (S/P/Bld) [Vol rate/Area]105 mL/min/1.73 v2Jvzeru>=59mL/min/1.73 m2FT Chem SGlobulin (S) [Mass/Vol]3.7 g/dLNormal1.4 - 4.0 gm/dLFT RemisolGlucose [Mass/Vol]83 mg/dVDyinyr93 - 199 mg/dLFTMC RemisolPotassium [Moles/Vol]3.9 mmol/LNormal3.5 - 5.3 mmol/LFTMC RemisolProtein [Mass/Vol]8.2 g/dLHigh6.0 - 7.8 gm/dLFTMC RemisolSodium [Moles/Vol]140 mmol/YJcutia550 - 145 mmol/LFTMC Remisol Triglyceride [Mass/Vol]87 mg/dLNormal<=149mg/dLFTMC RemisolTSH Qn1.33 m[IU]/L Normal0.34 - 5.60 mcIU/mLFTMC RemisolUrea nitrogen [Mass/Vol]17 mg/dLNormal5 - 21 mg/dLFTMC RemisolUrea nitrogen/Creatinine [Mass ratio]24 mg/ktIhfv79 - 20FT[facility] RemisolCHEMISTRYOrdered By: Maria M Jennings on 76-10-3748TfO9q (Bld) [Mass fraction]5.4 %Normal<=5.9%[facility] ChemAutoSSHEMATOLOGYOrdered By: tuQuejaSuma on 94-67-8323Gxsxbvwbz/100 WBC (Bld)0.9 %Normal0.0 - 2.0 %[facility] HemeAutoSS Basophils/Leukocytes Auto (Bld) [Pure # fraction]0.1 E9/LNormal0.0 - 0.2 E9/L [facility] HemeAutoSSEosinophils/100 WBC (Bld)2.3 %Normal0.0 - 8.0 %[facility] HemeAutoSS Eosinophils/Leukocytes Auto (Bld) [Pure # fraction]0.2 E9/LNormal0.0 - 0.5 E9/L [facility] HemeAutoSSLymphocytes/100 WBC (Bld)26.2 %Zxindd90.0 - 50.0 %[facility] HemeAutoSS Lymphocytes/Leukocytes Auto (Bld) [Pure # fraction]2.0 E9/LNormal1.0 - 4.0 E9/L [facility] HemeAutoSSMonocytes/100 WBC (Bld)6.8 %Normal4.0 - 14.0 %[facility] HemeAutoSS Monocytes/Leukocytes Auto (Bld) [Pure # fraction]0.5 E9/LNormal0.2 - 1.0 E9/L [facility] HemeAutoSSNeutrophils/100 WBC (Bld)63.8 %Upanvn38.0 - 75.0 %[facility] HemeAutoSS Neutrophils/Leukocytes Auto (Bld) [Pure # fraction]4.9 E9/LNormal2.0 - 7.5 E9/L [facility] HemeAutoSSHEMATOLOGYOrdered By: Cris Mas on 15-31-1332Olfphuubpke distribution width (RBC) [Ratio]13.3 %Xzwoag62.9 - 14.2 %[facility] HemeAutoSS Hematocrit (Bld) [Volume fraction]45.4 %Tuoase82.0 - 46.0 %[place] HemeAutoSS Hemoglobin (Bld) [Mass/Vol]15.0 g/sIZfwbvj22.0 - 16.0 gm/dLFT HemeAutoSSMCH (RBC) [Entitic mass]28.7 vjFjeapl51.0 - 34.0 pgFSAINT FRANCIS [facility] [place] HemeAutoSSMCHC (RBC) [Mass/Vol]33.1 g/fDFrvvnp17.4 - 36.0 gm/dLFT HemeAutoSSMCV (RBC) [Entitic vol] 86.6 lYOwrpei96.0 - 100.0 fLMUSCOGEE HemeAutoSSPlatelet mean volume (Bld) [Entitic vol]11.4 fLHigh6.4 - 10.8 fLMUSCOGEE HemeAutoSSPlatelets (Bld) [#/Vol]276.0 E9/L Txuzjq484.0 - 500.0 E9/LFC HemeAutoSSRBC (Bld) [#/Vol]5.2 E12/LNormal4.3 - 5.9 E12/LFSAINT FRANCIS [facility] [place] HemeAutoSSWBC corrected for nucl RBC Auto (Bld) [#/Vol]7.7 E9/LNormal 4.0 - 11.0 E9/LFC HemeAutoSSCBC W Auto Differential panel (Bld)on 12-16-2022 Basophils (Bld) [#/Vol]0.03 10*3/uL<0.11 k/uLAkron Children'S HospitalBasophils/100 WBC (Bld)0.4 %[facility]'S HospitalDifferential cell count method Nom (Bld)AutoCleveland ClinicEosinophils (Bld) [#/Vol]0.10 10*3/uL<0.46 k/uLAkron Children'S Hospital Eosinophils/100 WBC (Bld)1.4 %[facility]'S HospitalErythrocyte distribution width (RBC) [Ratio]12.6 %11.5 - 15.0 %[facility]'S HospitalHematocrit (Bld) [Volume fraction]45.0 %36.0 - 46.0 %[facility]'S HospitalHemoglobin (Bld) [Mass/Vol]14.9 g/dL 11.5 - 15.5 g/dLAkron Children'S HospitalImmature granulocytes (Bld) [#/Vol]<0.10 k/uL [facility] Hospitalmature granulocytes/100 WBC (Bld)0.3 %[facility] Lymphocytes (Bld) [#/Vol]2.01 10*3/uL1.00 - 4.00 k/uLAkron Children'S Hospital Lymphocytes/100 WBC (Bld)27.8 %[facility] HospitalH (RBC) [Entitic mass]28.3 pg 26.0 - 34.0 pgCSt. John of God HospitalHC (RBC) [Mass/Vol]33.1 g/dL30.5 - 36.0 g/dL [facility] HospitalV (RBC) [Entitic vol]85.4 fL80.0 - 100.0 fLCUniversity Hospitals Lake West Medical Center Monocytes (Bld) [#/Vol]0.53 10*3/uL<0.87 k/uLAkron Children'S HospitalMonocytes/100 WBC (Bld)7.3 %[facility]'S HospitalNeutrophils (Bld) [#/Vol]4.55 10*3/uL1.45 - 7.50 k/uL [facility] HospitalNeutrophils/100 WBC (Bld)62.8 %[facility]S HospitalNucleated RBC (Bld) [#/Vol]<0.01 k/uLAkron Children'S HospitalNucleated RBC/100 WBC (Bld) [Ratio]0.0 /100 WBCAkron Children'S HospitalPlatelet mean volume (Bld) [Entitic vol]12.7 fL9.0 - 12.7 fLCUniversity Hospitals Lake West Medical CenterPlatelets (Bld) [#/Vol]241 10*3/uL150 - 400 k/uLAkron Children'S HospitalRBC (Bld) [#/Vol]5.27 10*6/uLHigh3.90 - 5.20 m/uLAkron Children'S HospitalWBC (Bld) [#/Vol]7.24 10*3/uL3.70 - 11.00 k/uLAkron Children'S HospitalMRI BRAIN WO/W IVCONon 24-69-9369Gahftmewe ClinicXR HAND LT MIN 3Von 82-83-4143TF HAND LT MIN 3V Patient: MONIKA HASKINS Exam Date: 12/16/2019 : 1970 Gender:F Ordering : TEREZA LITTLEJOHN Admission #: [id number] Family : DR NICOLA JOHNSON D.O. Order #: [id number] CLICK HERE TO VIEW EXAM RADIOLOGY REPORT [...] by: Yamileth Longo M.D. on 12/16/2019 at 12:10[facility] Vital Signs Date TimeVital SignValuePerforming ObvoovdveTqzwhngs60-21-6991 08:51-0400Body rrppso681.3 cmEssence Pichardo MD Work Phone: [phone]10-14-2025 08:51-0400Body mass index (BMI) [Ratio]32.08 kg/h5DhpdvfEssence Pichardo MD Work Phone: [phone] [place], [place] [address]Ommpqkwupw08-62-8627 08:51-0400Body .33 kgEssence Pichardo MD Work Phone: [phone]10-14-2025 08:51-0400Diastolic blood eynipilc28 mm[Hg]Essence Pichardo MD Work Phone: [phone] [place], [place] [address]10-14-2025 08:51-0400Heart rate98 /min Essence Pichardo MD Work Phone: [phone] SystemDnljqhavnd34-87-8244 08:51-0400Systolic blood gfuuhsoo645 mm[Hg]Essence Pichardo MD Work Phone: [facility] SystemHoubhgxecs31-97-2062 15:28-0500Body mass index (BMI) [Ratio]29.29 kg/m2Kelley Bolaños ERON Work Phone: [facility] SystemHapronvctl63-73-8815 15:28-0500Body tficne982.7 kgAmy Mami PA Work Phone: [facility] SystemAweaojsute81-37-0910 15:28-0500Diastolic blood pcezgeck48 mm[Hg]Kelley Wilcoxey PA Work Phone: [facility] SystemUjxmsthegk63-90-4765 15:28-0500Systolic blood gxdvzfho982 mm[Hg]Kelley Wilcoxey PA Work Phone: [facility] SystemVphhesukjo31-79-4399 13:08-0500Diastolic blood lsydubpy20 mm[Hg]Patrick Bustamante MD Work Phone: [facility]01-22-2025 13:08-0500Heart rate90 /min Patrick Bustamante MD Work Phone: [facility]01-22-2025 13:08-0500Systolic blood mm[Hg]Patrick Bustamante MD Work Phone: [facility]10-16-2024 11:30-0400Diastolic blood kfilhslk07 mm[Hg]Patrick Bustamante MD Work Phone: [facility]10-16-2024 11:30-0400Heart wkcq443 /minPatrick Bustamante MD Work Phone: [facility]10-16-2024 11:30-0400Systolic blood fritdrpa174 mm[Hg]Patrick Bustamante MD Work Phone: [facility]07-03-2024 12:57-0400Diastolic blood rjklepth71 mm[Hg]Patrick Bustamante MD Work Phone: [facility]07-03-2024 12:57-0400Heart rate93 /min Patrick Bustamante MD Work Phone: [facility]07-03-2024 12:57-0400Systolic blood jdkndaig048 mm[Hg]Patrick Bustamante MD Work Phone: [phone]05-24-2024 16:08-0400Body jjhzke583.3 cmMio Rogers MD Work Phone: [facility]05-24-2024 16:08-0400Body mass index (BMI) [Ratio]32.96 kg/u0XrmcqMio Rogers MD Work Phone: [facility]05-24-2024 16:08-0400Body temperature 98.71 [degF]Mio Rogers MD Work Phone: [phone]05-24-2024 16:08-0400Body ufahcg708.2 kgMio Rogers MD Work Phone: [facility]05-24-2024 16:08-0400Diastolic blood xqansnqt15 mm[Hg]Mio Rogers MD Work Phone: [phone]05-24-2024 16:08-0400Heart lsve020 /minMio Rogers MD Work Phone: [phone]05-24-2024 16:08-0400Respiratory rate 20 /minMio Rogers MD Work Phone: [phone]05-24-2024 16:08-9898YeC9% (BldA) [Mass fraction]98 %Mio Rogers MD Work Phone: [phone]05-24-2024 16:08-0400Systolic blood mm[Hg]Mio Rogers MD Work Phone: [phone]04-30-2024 14:35-0400Blood Pressure LocationAurora Manpreet [facility]04-30-2024 14:35-0400Diastolic blood wkjuefwm92 mm[Hg]Elo Case [facility]04-30-2024 14:35-0400Heart rate60 /minAurora Orzech [facility]04-30-2024 14:35-0400Respiratory rate16 /minAurora Orzech [facility]04-30-2024 14:35-0400Systolic blood rjmbllpo853 mm[Hg]Elo Orzech [facility]02-28-2024 09:09-0500Diastolic blood mm[Hg]Patrick Bustamante MD Work Phone: [facility]02-28-2024 09:09-0500Heart sdpe989 /Marcelo Bustamante MD Work Phone: [facility]02-28-2024 09:09-0500Systolic blood kjpxarml567 mm[Hg]Patrick Bustamante MD Work Phone: [facility]10-11-2023 08:12-0400Body titwpf921.3 cmPatrick Bustamante MD Work Phone: [facility]10-11-2023 08:12-0400Body ypodrs389.33 kgPatrick Bustamante MD Work Phone: [facility]08-29-2023 13:08-0400Blood Pressure LocationJENNIFER GABRIEL [facility]08-29-2023 13:08-0400Diastolic blood ogwmusek76 mm[Hg]LIANNA RIOS [facility]08-29-2023 13:08-0400Heart rate70 /minJENNIFER GABRIEL [facility]08-29-2023 13:08-0400Respiratory rate16 /minJENNIFER GABRIEL [facility]08-29-2023 13:08-0400Systolic blood xfafgfvf440 mm[Hg]LIANNA GABRIEL [facility]12-07-2022 13:42-0500Blood Pressure LocationLannette ClemonsExec[facility] [place] 247822-07-2022 13:42-0500Diastolic blood uwdcdtvz43 mm[Hg]Lannette ClemonsExec[facility] [place] 247822-07-2022 13:42-0500Heart rate89 /minLannette ClemonsExec[facility] of [place] 247822-07-2022 13:42-0500Systolic blood karqrohc924 mm[Hg]Lannette ClemonsExec[facility]05-25-2022 14:38-0400Heart rate75 /minJENNIFER GABRIEL [facility] 05-25-2022 14:38-0400Respiratory rate16 /minJENNIFER GABRIEL [facility] 04-12-2022 11:28-0400Blood Pressure LocationJENNIFER GABRIEL [facility] 04-12-2022 11:28-0400Diastolic blood osxdqsht94 mm[Hg] LIANNA GABRIEL [facility] 04-12-2022 11:28-0400Heart rate96 /minJENNIFER GABRIEL [facility] [phone] 11:28-0400Systolic blood pqraokxf010 mm[Hg] LIANNA RIOS [facility] Encounters Encounter DateEncounter TypeCare ProviderFacilityStart: 41-36-7334umxoodnyoeTfhw L SchwabFacility:[facility] BellevueStart: 09-29-2025 End: 80-95-6359Dpqqhl flowsheetCorey Surendra DO Work Phone: [facility]BGYNStart: 09-29-2025 End: 45-54-2342Bexmaz flowsheetCorey Surendra DO Work Phone: [facility]BGYNStart: 09-29-2025 End: 79-61-2464inebxfvmihJXUNA FAZIONot AvailableStart: 09-14-2025 End: 90-41-3797Jqumqffj SupportMarlene Arias CCC-A Work Phone: [facility] AudiologyComment on above:Plugged feeling in ear, left (Primary Dx); Benign paroxysmal positional vertigo, leftStart: 09-14-2025 End: 88-37-5859Xuaist flowsSamina Arias CCC-A Work Phone: [facility] AudiologyStart: 09-14-2025 End: 13-72-7338Xfsxgp flowsSamina Arias CCC-A Work Phone: [facility] AudiologyStart: 09-06-2025 End: 10-51-9457Zhqklo Aurelia Pichardo MD Work Phone: [facility] OtolaryngologyStart: 09-06-2025 End: 65-62-5311Pqrzovfatemeh Pichardo MD Work Phone: [facility] OtolaryngologyStart: 09-06-2025 End: 34-62-6178enxnhrurwyNXDTHS Kendra Avendano AvailableStart: 09-06-2025 End: 62-26-4201Yvyahw outpatient new 45 minutesHiperlita Pichardo MD Work Phone: [facility] OtolaryngologyComment on above:Ear fullness, left (Primary Dx); 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; BPPV (benign paroxysmal positional vertigo), left; ETD (Eustachian tube dysfunction), bilateralStart: 08-31-2025 End: 06-08-7281jmfogdxqctZyho L SchwabFacility:[facility]vueStart: 08-11-2025 End: 21-38-1504uebqkzxsmmHaav L SchwabFacility:[facility]vueStart: 08-10-2025 End: 72-46-2117Zfdbkmx encounter procedurePatrick Bustamante MD Work Phone: Rehab MedicineComment on above: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); Brain tumor (HCC); Reis's palsyStart: 08-10-2025 End: 01-36-1182kspivhotdlKJOIP MCKEEFacility:[facility]art: 07-14-2025 End: 41-47-6277vpglkcbjhxDnpza McKee MD Work Phone: Rehab MedicineStart: 07-14-2025 End: 08-94-8953Eahrsva encounter procedurePatrick Bustamante MD Work Phone: Rehab MedicineComment on above:botoxStart: 05-30-2025 End: 75-52-4807mboidwcxkhCemu L SchwabFacility:[facility]vueStart: 05-23-2025 End: 64-20-2850pgsrkyytbzZCNZJAKX E PERRYFacility:[facility]vueStart: 05-23-2025 End: 82-36-3998Fgrpeia encounter procedureJENNIFER E GABRIEL [facility] start: 05-16-2025 End: 17-95-5019jhbdylkkryFELJACEC E PERRYFacility:[facility]vueStart: 05-16-2025 End: 36-04-8161Dvijsoe encounter procedureJENNIFER E GABRIEL [facility] start: 05-03-2025 End: 83-11-0860wpmiuigyfeIeculrw Ed WATERSFacility:FTMCStart: 05-03-2025 End: 33-73-2650Ianngsz encounter procedurePatricandressa BLAS [facility] Start: 04-26-2025 End: 71-57-4836zjvacarpirLkyhesi R WATERSFacility:EU BellevueStart: 04-26-2025 End: 79-81-0259Arlxvfr encounter procedurePatrick Ed BLAS [facility] start: 04-25-2025 End: 29-54-9158glpeyorakoAmwy L SchwabFacility:FT BellevueStart: 04-22-2025 End: 80-63-1286ioixhpofmjVzpb L SchwabFacility:FT BellevueStart: 04-11-2025 ambulatoryJENNIFER E PERRYFacility:EU BellevueStart: 03-22-2025 End: 76-50-8689abcmgrgvesRkfi L SchwabFacility:FT BellevueStart: 03-22-2025 ambulatoryPatrick R WATERSFacility:EU BellevueStart: 03-08-2025 End: 24-73-3466aygvkcmojqVNI Ara L SchwabFacility:FT BellevueStart: 02-08-2025 End: 88-78-7227Blz Drop offJodi L Guilherme [facility] Start: 02-08-2025 End: 66-44-3735rkxuykapwfHMP Ara L SchwabFacility:FT FM BellevueStart: 01-27-2025 End: 20-11-1300Nem-admission assessmentPataniyaandressa BLAS [facility] Start: 01-24-2025 End: 81-11-8595jvcowtviedXLY Ara L SchwabFacility:FT FM BellevueStart: 50-45-7538vfeztpiarcCCB Ara L SchwabFacility:FT FM BellevueStart: 01-12-2025 End: 90-17-8828Wneggz Al LITTLEJOHN Work Phone: noms BCP OBStart: 01-12-2025 End: 04-21-9453Zpkhfy Al LITTLEJOHN Work Phone: noms BCP OBStart: 01-12-2025 End: 62-36-7525Upegkp follow up visit related to original Radha LITTLEJOHN Work Phone: noms BCP OBComment on above:Postoperative follow-up Start: 01-12-2025 End: 19-94-1746xqteagzxodDGO RAMEYNot AvailableStart: 12-31-2024 End: 87-15-9380Nwtckujeb Result EncounterCorey Surendra DO Work Phone: noms External Department UnsolicitedStart: 12-31-2024 End: 33-13-4978Xbljybagz Result EncounterCorey Surendra DO Work Phone: noms External Department UnsolicitedStart: 12-31-2024 End: 37-57-3475wtxpmcvyrpBdmmf FaziBlanchard Valley [facility] Work Phone: Start: 12-31-2024 End: 47-44-4018Ixtuhdhz ReferredCorey Surendra DO Work Phone: [facility] Path Spec [facility] HospStart: 12-28-2024 End: 55-80-4869Hiapwiika Result EncounterCorey Surendra DO Work Phone: noms External Department UnsolicitedStart: 12-28-2024 End: 38-13-4271Eshvsczjr Result EncounterCorey Surendra DO Work Phone: noms External Department UnsolicitedStart: 12-23-2024 End: 81-17-7162Wahsskmry Result EncounterCorey Surendra DO Work Phone: noms External Department UnsolicitedStart: 12-23-2024 End: 39-27-7300Lpfwylubo Result EncounterCorey Surendra DO Work Phone: noms External Department UnsolicitedStart: 12-22-2024 End: 28-62-0988Smekxe outpatient visit 15 minutesKelley LITTLEJOHN Work Phone: noms BCP OBComment on above:Post-menopausal bleeding; Complex ovarian cyst; Uterine massStart: 12-22-2024 End: 83-70-9683jehtsapdstYID RAMEYNot AvailableStart: 12-22-2024 End: 20-55-6671Zenljn flowsheetKelley LITTLEJOHN Work Phone: NOMS BCP OBStart: 12-22-2024 End: 28-86-3743Sbfvjl Al LITTLEJOHN Work Phone: NOMS BCP OBStart: 12-15-2024 End: 01-15-2660obgxjofsczGRZLP MCKEEFacility:[facility]at[facility]art: 12-15-2024 End: 68-37-6736Bakrcbi encounter Niru Bustamante MD Work Phone: Rehab MedicineComment on above: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); Brain tumor (HCC)Start: 11-09-2024 End: 63-78-0764kgqxdrbnouAJE Ara L SchwabFacility:FT evueStart: 10-12-2024 End: 19-42-1014shexenemcfSWR Ara L SchwabFacility:FT evueStart: 09-14-2024 End: 30-57-8935gdincqfmbvOQJ Ara L SchwabFacility:FT tart: 2024 End: 25-99-5687jzdtfzlvfrOJJLT MCKEEFacility:[facility]atitart: 2024 End: 25-54-1282Mippbld encounter procedurePatrick Bustamante MD Work Phone: Rehab MedicineComment on above: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) Start: 07-29-2024 End: 96-72-0857Bei Drop offJojennifer L Guilherme [facility] Start: 06-01-2024 End: 88-49-6460Mwhjbls encounter procedureAurafaela Case [facility] start: 05-26-2024 End: 32-74-7054Wlzajtm encounter procedurePatrick Bustamante MD Work Phone: Rehab MedicineComment on above: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); Brain tumor (HCC)Start: 18-01-0541xpreuyavkhIvsjz McKee MD Work Phone: Rehab MedicineStart: 49-08-1754Rniadpc encounter Niru Bustamante MD Work Phone: Rehab MedicineComment on above:botoxStart: 05-07-2024 Telephone encounterMio Rogers MD Work Phone: Hematology/OncologyComment on above:Cafeteria Director - Other ([facility] )Start: 24-72-3038zybcicjluoXhzcdMadhavi Rogers MD Work Phone: Hematology/OncologyComment on above:[place] j[place] medicsl waiverStart: 04-16-2024 End: 98-43-5835ykidcyjtosEirnuMadhavi Rogers MD Work Phone: Hematology/OncologyComment on above:AL amyloidosis (HCC) (Primary Dx); Brain tumor (HCC)Start: 04-16-2024 End: 31-37-9593Rrbdjco encounter procedureMio Rogers MD Work Phone: Hematology/OncologyStart: 04-16-2024 End: 73-34-5051Vyzkxopbtm hospital visit by Huber Lima (1.5t) Work Phone: RadiologyComment on above:Brain tumor (HCC) [D49.6] Start: 03-23-2024 End: 37-49-0032Ucfjvqn encounter procedureElo Case [facility] start: 03-22-2024 End: 00-06-1873Vvdpjjeedy hospital visit by Huber Knutson (I-Stat/3t) Work Phone: RadiologyComment on above:Brain tumor (HCC) [D49.6] Start: 55-65-2303BmxvjhPztjnjndj McDonald RN Work Phone: Hematology/OncologyComment on above:Refill Request Start: 01-21-2024 End: 63-54-9653Qfxkunz encounter Niru Bustamante MD Work Phone: Rehab MedicineComment on above: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) Start: 75-18-1709celeswlgvsTcyayMadhavi Rogers MD Work Phone: Hematology/OncologyComment on above:baclofen 10 mg Start: 58-12-2021VhuvmvWiury McKee MD Work Phone: Rehab MedicineComment on above:Refill RequestStart: 09-03-2023 End: 86-99-6172Ig[place] encounter procedurePatrick Bustamante MD Work Phone: Rehab MedicineComment on above: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); Brain tumor (HCC)Start: 08-22-2023 End: 47-98-4386Pryyhgb encounter procedureJodi L Guilherme [facility] Start: 07-22-2023 End: 41-64-0467Zhpvrax encounter procedureLIANNA RIOS [facility] start: 07-09-2023 End: 46-15-5920Xleumqt encounter procedurePatrick Bustamante MD Work Phone: Rehab MedicineComment on above:APPOINTMENT CANCELLED (Primary Dx)Start: 07-08-2023 End: 76-48-2514Akbihol encounter procedureOseas BLAS [facility] Start: 07-02-2023 End: 57-69-4344Brwtssw encounter procedureJodi L Guilherme [facility] start: 06-24-2023 End: 24-15-3637Tdf Drop offJodi L Guilherme [facility] Start: 12-20-2022 End: 94-00-2653cfdngztwktOwzngMadhavi Rogers MD Work Phone: Hematology/OncologyComment on above:AL amyloidosis (HCC) (Primary Dx); Brain tumor (HCC)Start: 12-20-2022 End: 41-36-3707Hzmxgsyhgaax consultation with patientMio Rogers MD Work Phone: [facility] MAINStart: 85-35-3002xpnvtfgrns Mio Rogers MD Work Phone: Hematology/OncologyStart: 12-16-2022 End: 57-43-4008Phmzda Analy Josue RN Work Phone: Hematology/OncologyComment on above: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]Start: 98-56-0616PitxgoNrlwf N [place] MD Work Phone: Hematology/OncologyComment on above:Refill Request Start: 10-30-2022 End: 30-77-6895Zhuhjlq encounter procedureLanriley MartinsExec[facility] Start: 10-01-2022 End: 79-60-5597Azuchsm encounter procedureOseas BLAS [facility] Start: 09-23-2022 End: 92-60-6440Geakoxfbhh hospital visit by Huber Lima (1.5t) Work Phone: RadiologyComment on above:Canceled (Pt cx: Rescheduled)Start: 09-23-2022 End: 93-46-3796Fttvjcg encounter procedureOseas BLAS [facility] Saulo start: 86-04-7280FhbmhoBgpes N Valent MD Work Phone: Hematology/OncologyComment on above:Refill Request Start: 63-03-8300Vmhjnmtip encounterMio Rogers MD Work Phone: Hematology/OncologyComment on above:Cafeteria Director - Other (Question re: appts)Start: 26-39-8659Xpvnunjrl encounterMio Rogers MD Work Phone: Hematology/OncologyComment on above:Care Coordination ([employer] Assistance Form)Start: 04-17-2022 End: 46-24-2676Til Drop offJENNIFER E GABRIEL [facility] Start: 04-17-2022 End: 76-29-0744Epijstp encounter procedureJENNIFER E GABRIEL [facility] Saulo start: 03-05-2022 End: 90-61-6290Wuomliy encounter procedureJENNIFER E GABRIEL [facility] Chad Start: 31-11-2068Rsrophxfk encounterMio Rogers MD Work Phone: Hematology/OncologyComment on above:Cafeteria Director - Other (handicap)Start: 02-12-2022 End: 22-63-9601Arvlvqd encounter procedureOseas BLAS [facility] Start: 10-16-2020 End: 46-97-5828Jtzcgzxwop hospital visit by physiciani [facility] [place] (Lg Bore/1.5t)Radiology MRIComment on above:Canceled (Pt cx: d/t [place] Virus COVID- 19 Process)Start: 12-16-2019 End: 61-33-0996Umgxzpl encounter procedureDOCTOR MISCFacility:H1 Procedures DateProcedureProcedure DetailPerforming ClinicianStart: 38-58-8204HTM CBC WITH AUTO DIFFCorey Surendra DO Work Phone: Start: 77-26-5750MZF 12-LEADCorey Surendra DO Work Phone: Start: 42-66-3910RRV LDHCorey Surendra DO Work Phone: Start: 95-27-9289Dxs brain brain stem w/o w/contrast Marc Rogers MD Work Phone: Start: 88-96-0937Srbklurgq toxin type A (substance) Elo Case Start: 02-66-6094Nupaoppdw of botulinum toxin type A into detrusor muscle of urinary bladderJENNIFER GABRIEL Start: 64-22-7193Spwqkzdpanv observation [Identifier] in Cervix by Cyto stainKelley LITTLEJOHN Work Phone: Start: 73-28-9792Vls brain brain stem w/o w/contrast Lyle Gallagher APRN.MANAGER SALES Work Phone: Start: 76-52-4707Dqjrktrlw of therapeutic substance into bladder wallLannette ClemonsStart: 23-47-1010Vuvaltcxj of therapeutic substance into bladder wallPatrick BLAS Start: 43-70-0778Lquqemmyy of therapeutic substance into bladder wallPatrick BLAS Start: 74-84-7285Cvubddfwtyhfnfpuo with dilation of urethral strictureAdvanced Care Hospital of [facility] Start: 82-92-7697Snweugxdor studiesAdvanced Care Hospital of Southern [facility] [place] Start: 15-83-3387Djqya depression screening assessment Mio Rogers MD Work Phone: brain biopsyGeneva BLAS [phone]-gvtpzoo 2011[facility] [place] Cesarean sectionCS - section( Confirmed ) Oseas [place] CholecystectomyCholecystectomy( Confirmed )Oseas BLAS Operation on gallbladderGeneva [place] Plan of Treatment DateCare ActivityDetailAuthorStart: 79-55-4959Mhbympbm ScreeningDiabetes ScreeningCleveland ClinicStart: 36-18-4811Xoegkudne for malignant neoplasm of cervixNOFL HealthcareStart: 83-89-3829WAKDVUOO SCREENDIABETES SCREENMemorial Health System Marietta Memorial Hospitaltart: 21-61-7771Pzmbcpoi ScreeningDiabetes ScreeningAkron Children'S [facility] Start: 11-09-2025 End: 38-97-4643Ieuuldy encounter gzphcmowx57/17/2025 1:00 PM EST Office Visit Rehab Medicine [address] [place] [address] Patrick Bustamante MD [address] [place] [address] Return in about 3 months (around 11/09/2025) for Repeat Botox injections in 3 months with Dianna in [place].Rehab MedicineComment on above:Return in about 3 months (around 11/09/2025) for Repeat Botox injections in 3 months with Dianna in [place].Start: 09-29-2025 End: 32-79-4396Dqyvjfj encounter bddemcxei33/06/2025 10:10 AM EST Office Visit LING HASTINGSGYN [address] [place] [address] Carter Agosto DO [address] [place] [address] ArrivedNOMS [place] OBGYNComment on above:ArrivedStart: 09-19-2025 End: 64-14-1228Yanudek encounter ptklnwymc95/27/2025 2:20 PM EDT Office Visit [facility] [address] [facility] [address] [place] [address] Essence Pichardo MD [address] [facility] [address] [place] [address] LING [facility] OtolaryngologyStart: 09-14-2025 End: 17-65-9622Qmczoxrb Qruyyvt3609/14/2025 3:00 PM EDT Clinical Support [facility] [address] [place], [id number] Marlene Arias, [facility] [address] [place] [address] ArrivedNOMS Reji AudiologyComment on above:Arrived Start: 96-81-1975ZWDYR-19 Vaccine ( season)COVID-19 Vaccine ( season)NOMS HealthcareStart: 98-26-0475Hgeimzarq vaccinationInfluenza Vaccine (#1)[facility] Hospitaltart: 05-18-2025 End: 94-11-6179Vpwgfmo encounter lnnewswvw90/25/2025 3:00 PM EDT Office Visit [facility] [address] [place] [address] Carter Agosto, DO [address] [place], [place] [id number] NOMS BCP OBStart: 04-16-2025 End: 19-14-3233NTU W Auto Differential panel - BloodCOMPLETE BLOOD COUNT AND DIFFERENTIAL Lab Routine AL amyloidosis (HCC) Expected: 04/16/2025 (Approxi mate), Expires: 07/16/2025leveland ClinicComment on above:Expected: 04/16/2025 (Approximate), Expires: 07/16/2025Start: 04-16-2025 End: 63-11-4657Evzvwtxldbocb metabolic 2000 panel - Serum or PlasmaCOMPREHENSIVE METABOLIC PANEL Lab Routine AL amyloidosis (HCC) Expected: 04/16/2025 (Approximate), Expires: 07/16/2025[facility] Work Phone: Comment on above:Expected: 04/16/2025 (Approximate), Expires: 07/16/2025Start: 04-16-2025 End: 78-74-1584RBKRTTFUDH PROTEIN, SERUM (BLOOD)MONOCLONAL PROTEIN, SERUM (BLOOD) Lab Routine AL amyloidosis (HCC) Expected: 04/16/2025 (Approximate), Expires: 07/16/2025leveland ClinicComment on above:Expected: 04/16/2025 (Approximate), Expires: 07/16/2025Start: 04-16-2025 End: 54-33-8614KR Brain WO and W contrast IVMRI BRAIN WO/W IVCON Radiology Routine Brain tumor (HCC) Expected: 04/16/2025 (Approximate), Expires: 05/16/2025leveland ClinicComment on above:Expected: 04/16/2025 (Approximate), Expires: 05/16/2025Start: 03-16-2025 End: 26-17-2395Zqbzaav encounter cwlecalyc84/23/2025 10:30 AM EDT Office Visit Rehab Medicine [address] [place], [place] [id number] Patrick Bustamante MD [address] [place] [address] 3 month botoxRehab MedicineComment on above:3 month botoxStart: 01-12-2025 End: 57-84-7385Wslgzum encounter pgcbimqoz86/19/2025 1:40 PM EST Office Visit [facility] [address] [facility] [place] [address] Kelley Bolaños PA [address] [place], [place] [id number] ArrivedNOMS BCP OBComment on above:ArrivedStart: 12-22-2024 End: 10-95-2803Lqkenag encounter xesbzevzq36/29/2025 3:30 PM EST Office Visit NOMS [facility] [address] [facility] [place] [address] Kelley Bolaños PA [address] [place], [place] [id number] ArrivedNOMS BCP OBComment on above:ArrivedStart: 12-22-2024 End: 34-87-3925WDM tumor markerAFP tumor marker Lab Routine Complex ovarian cyst Expected: 12/22/2024 (Approximate), Expires: 12/22/2025[facility] HealthcareComment on above:Expected: 12/22/2024 (Approximate), Expires: 12/22/2025Start: 12-22-2024 End: 74-17-6161OR 125CA 125 Lab Routine Complex ovarian cyst Expected: 12/22/2024 (Approximate), Expires: 12/22/2025[facility] HealthcareComment on above: Expected: 12/22/2024 (Approximate), Expires: 12/22/2025Start: 12-22-2024 End: 82-62-1286Eqottugwnxxkjoak Ag [Mass/volume] in Serum or PlasmaCEA Lab Routine Complex ovarian cyst Expected: 12/22/2024 (Approximate), Expires: 12/22/2025[facility] HealthcareComment on above:Expected: 12/22/2024 (Approximate), Expires: 12/22/2025Start: 12-22-2024 End: 28-34-7412DST, tumor markerHCG, tumor marker Lab Routine Complex ovarian cyst Expected: 12/22/2024 (Approximate), Expires: 12/22/2025[facility] Healthcare Comment on above:Expected: 12/22/2024 (Approximate), Expires: 12/22/2025Start: 12-22-2024 End: 81-66-6412Aqjlvvm dehydrogenase, isoenzymesLactate dehydrogenase, isoenzymes Lab Routine Complex ovarian cyst Expected: 12/22/2024 (Approximate), Expires: 12/22/2025[facility] Work Phone: comment on above:Expected: 12/22/2024 (Approximate), Expires: 12/22/2025Start: 12-15-2024 End: 67-76-7505Udfdvxk encounter loxwogoko73/22/2025 1:00 PM EST Office Visit Rehab Medicine [address] [place] [address] Patrick Bustamante MD [address] [place] [address] BOTOXRehab MedicineComment on above:BOTOXStart: 01-01-2025Medicare Advantage Annual Wellness VisitMedicare Advantage Annual Wellness VisitMemorial Health System Marietta Memorial Hospitaltart: 00-78-3202WEYFVGJK SCREENDIABETES SCREENMemorial Health System Marietta Memorial Hospitaltart: 2024 End: 00-55-1598Maelmde encounter edowcpgyj34/16/2024 11:15 AM EDT Office Visit Rehab Medicine [address] [place] [address] Patrick Bustamante MD [address] [place] [address] BOTOXRehab MedicineComment on above:BOTOXStart: 50-63-6179Jcxzo-19 Vaccine ()Covid-19 Vaccine ( season)[facility] Hospitaltart: 50-67-7112Lfsrucvhh vaccinationInfluenza Vaccine (#1)[facility] Hospitaltart: 05-26-2024 End: 41-43-6028Uvrlmlx encounter mkyjhrbcv13/03/2024 1:00 PM EDT Office Visit Rehab Medicine [address] [place] [address] Patrick Bustamante MD [address] [place] [address] BOTOXRehab MedicineComment on above:BOTOXStart: 04-16-2024 End: 68-08-2472Znnbnd-up snjhjlkyv95/24/2024 4:00 PM EDT Visit (SP) Office Hematology/Oncology [address] [place], [place] [phone] Mio Rogers MD [address] [place] [address] FOLLOW UPHematology/OncologyComment on above:FOLLOW UPStart: 04-16-2024 End: 67-39-1063ehzjehmvxn28/24/2024 3:00 PM EDT [facility] Hematology/Oncology [address] [place] [address] labs Hematology/OncologyComment on above:labsStart: 14-72-8867Eakpxjbxwj hospital visit by ytuxpfclr39/24/2024 2:00 PM EDT Hospital Encounter Radiology [address] [place] [address] Brain tumor (HCC) [D49.6]Radiology Comment on above:Brain tumor (HCC) [D49.6]Start: 03-22-2024 End: 82-15-6864Gbwsjm-up jejnscecz95/29/2024 12:00 PM EDT Visit (SP) Office Hematology/Oncology [address] [place] [address] Mio Rogers MD [address] [place] [address] FOLLOW UPHematology/OncologyComment on above:FOLLOW UPStart: 03-22-2024 Subsequent hospital visit by kwadeoztn54/29/2024 10:40 AM EDT Hospital Encounter Radiology [address] [place] [address] Brain tumor (HCC) [D49.6]RadiologyComment on above:Brain tumor (HCC) [D49.6]Start: 03-22-2024 End: 80-83-3040szavkvzeqx13/29/2024 10:00 AM EDT Results Only Main [place] [address] [address] [place], [place] LABSMain [place] Draw StationComment on above:LABSStart: 02-05-2024 End: 51-85-6085ID Brain WO and W contrast IVMRI BRAIN WO/W IVCON Radiology Routine Brain tumor (HCC) AL amyloidosis (HCC) Expected: 02/05/2024,Expires: 01/15/2025[facility] Work Phone: Comment on above:Expected: 02/05/2024, Expires: 01/15/2025Start: 12-20-2023 End: 75-29-6415HVX W Auto Differential panel - BloodCBC + DIFF Lab Routine AL amyloidosis (HCC) Expected: 12/20/2023 (Approximate), Expires: 02/19/2024 [facility] Work Phone: Comment on above:Expected: 12/20/2023 (Approximate), Expires: 02/19/2024Start: 12-20-2023 End: 78-22-4436Vyeoaocrvywnr metabolic 2000 panel - Serum or PlasmaCOMP METABOLIC PANEL Lab Routine AL amyloidosis (HCC) Expected: 12/20/2023 (Approximate), Expires: 02/19/2024[facility] Work Phone: Comment on above:Expected: 12/20/2023 (Approximate), Expires: 02/19/2024Start: 12-20-2023 End: 77-72-5182JCMEBXVEKY PROTEIN, SERUM (BLOOD)MONOCLONAL PROTEIN, SERUM (BLOOD) Lab Routine AL amyloidosis (HCC) Expected: 12/20/2023 (Approximate), Expires: 02/19/2024[facility] Work Phone: Comment on above:Expected: 12/20/2023 (Approximate), Expires: 02/19/2024Start: 12-20-2023 End: 58-01-6789Wqy brain brain stem w/o w/contrast materialMRI BRAIN WO/W IVCON Radiology Routine Brain tumor (HCC) AL amyloidosis (HCC) Expected: 12/20/2023 ( Approximate), Expires: 01/19/2024[facility] Work Phone: Comment on above:Expected: 12/20/2023 (Approximate), Expires: 01/19/2024Start: 96-30-8694Wiwulzfens Health ScreeningBehavioral Health ScreeningMemorial Health System Marietta Memorial Hospitaltart: 17-64-5252Bujfdnwhkr AssessmentDepression AssessmentMemorial Health System Marietta Memorial Hospitaltart: 06-29-1013Myoxp-19 Vaccine () Covid-19 Vaccine ()[facility] Hospitaltart: 42-73-5677Zcbecsluu vaccinationCleUniversity Hospitals Conneaut Medical Centertart: 12-16-2022 End: 96-71-7407Wexlaxpwilcha metabolic 2000 panel - Serum or PlasmaBlanchard Valley Health System [facility] Work Phone: Comment on above:Expected: 12/16/2022, Expires: 02/15/2023Start: 12-16-2022 End: 63-35-7363VZMVRUNOFE PROTEIN, SERUM (BLOOD)[facility] Work Phone: Comment on above:Expected: 12/16/2022, Expires: 02/15/2023Start: 97-72-0165RVTOCUXDTN ASSESSMENTDEPRESSION ASSESSMENTMemorial Health System Marietta Memorial Hospitaltart: 51-21-7958Qlakngehdsyq Vaccine: 50+ (1 of 1 - PCV)Pneumococcal Vaccine: 50+ (1 of 1 - PCV)[facility] Hospitaltart: 71-06-1655TKJFUCGL VACCINE (1 of 2)SHINGRIX VACCINE (1 of 2)[facility] Hospitaltart: 41-62-0244Edyvphrzl vaccinationINFLUENZA (#1)[facility] Hospitaltart: 75-97-6194UMZRC-19 VACCINE (3 - Booster for Pfizer series)COVID-19 VACCINE (3 - Booster for Pfizer series) [facility] Hospitaltart: 14-03-0338PZDFJVAXVV ASSESSMENTDEPRESSION ASSESSMENT [facility] Hospitaltart: 41-86-8272SGIRS-19 VACCINE (3 - Booster for Pfizer series)COVID-19 VACCINE (3 - Booster for Pfizer series)[facility] Hospitaltart: 18-73-0343UQTFK-19 VACCINE (3 - Pfizer series)COVID-19 VACCINE (3 - Pfizer series)[facility]: 38-94-9125Gqyfo microalbumin profileDTaP,Tdap,Td Vaccine (2 - Td or Tdap)[facility] Hospitaltart: 62-49-4847UNVCYXOUM (FIT-DNA) COLOGUARD (FIT-DNA)[facility]: 49-16-6723EzxkwcqpimjFCZJURRYRYI [facility]: 46-63-8445JSCDAJOOGD CANCER SCREENINGCOLORECTAL CANCER SCREENINGMemorial Health System Marietta Memorial Hospitaltart: 64-08-3516VI COLONOGRAPHYCT COLONOGRAPHY [facility] Hospitaltart: 40-30-1007JQXHG OCCULT BLOODFECAL OCCULT BLOODMemorial Health System Marietta Memorial Hospitaltart: 77-25-8012Wsjcx 1996 panel - Serum or PlasmaLipid Screening [facility] Hospitaltart: 26-72-8884Hmxyx panelLipid ScreeningAkron Children'S Hospital Start: 08-37-4217PPKZK SCREENLIPID SCREENMemorial Health System Marietta Memorial Hospitaltart: 2017 Screening for malignant neoplasm of colonMemorial Health System Marietta Memorial Hospitaltart: 2017 SIGMOIDOSCOPYSIGMOIDOSCOPYMemorial Health System Marietta Memorial Hospitaltart: 07-19-5103Nvkdj depression screening assessmentDEPRESSION SCREENINGMemorial Health System Marietta Memorial Hospitaltart: 2012 MammographyMemorial Health System Marietta Memorial Hospitaltart: 68-30-5232Dsdgoejhs for malignant neoplasm of breastMemorial Health System Marietta Memorial Hospitaltart: 98-57-4030MJL TESTINGHPV TESTINGAkron Children'S Hospital Start: 52-83-6036Kkcqrnaep for malignant neoplasm of cervixAkron Children'S Hospital Start: 84-13-4464XOE TESTINGPAP TESTINGMemorial Health System Marietta Memorial Hospitaltart: 1993 Screening for malignant neoplasm of cervixMemorial Health System Marietta Memorial Hospitaltart: 1991 Hepatitis B Vaccine (1 of 3 - 19+ 3-dose series)Hepatitis B Vaccine (1 of 3 - 19+ 3-dose series)[facility] Hospitaltart: 52-43-5071Vabxq microalbumin profile [facility] [facility]: 10-36-6448Wienrvu ScreeningAnxiety ScreeningMemorial Health System [facility] Hospitaltart: 76-46-9088Khoczwmkwc ScreeningDepression ScreeningAkron Children'S Hospital Start: 85-46-9414YTYNLLIJX C SCREENINGHEPATITIS C SCREENINGAkron Children'S Hospital Start: 43-27-2779Sbgsaxdyp C screeningHepatitis C ScreeningAkron Children'S Hospital Start: 13-49-0970HVT SCREENINGHIV SCREENINGMemorial Health System [facility] Hospitaltart: 99-01-7416OWF screeningHIV ScreeningMemorial Health System [facility] Hospitaltart: 20-23-6554DOFCULOUP B (1 of 3 - 3- dose series)HEPATITIS B (1 of 3 - 3-dose series)[facility]: 72-09-4852Wtfooqhka B Vaccine (1 of 3 - 3-dose series)Hepatitis B Vaccine (1 of 3 - 3-dose series)[facility]: 98-70-5348Ksiegehiv for malignant neoplasm of colonPR[facility] HealthcareAuditory function testsAuditory function tests Audiology Routine 09/14/2025 4:02 PM [facility] [place], [facility] Work Phone: [facility] Immunizations Immunization DateImmunizationNotesCare PluhkrokQrjddthe17-02-2794gkuoprvkf virus vaccine, unspecified formulationJodi Guilherme [phone]-IbcqgOhiohealth [facility] Comment on above:Result Comment: Fluzone Quadrivalent- Single liud45-62-3395 influenza, injectable, quadrivalent, preservative freeAurora Immanuelzech [phone]-LktzmOhiohealth Dublin Methodist Hospital 67-26-7579zhkunmjea virus vaccine, unspecified formulationPatrick Bustamante MD Work Phone: [facility] HospitalRndefw84-28-5193ysbknoagt virus vaccine, unspecified formulationJENNIFER GABRIEL [facility]10-25-2021influenza, injectable, quadrivalent, preservative Antelmo Rogers MD Work Phone: [facility] HospitalHimuqb14-78-1538fygqgpriu virus vaccine, unspecified formulationJENNIFER GABRIEL [facility] [id number]-RiP-9 (COVID-19) Ad26 vaccine, recombinantPatrick BLAS [facility]09-20-2021SARS-CoV-2 (COVID-19) mRNA BNT-162b2 vaxJENNIFER GABRIEL [facility] HospitalComment on above:Result Comment: 2023-07-22: ZBV2862-56-3079VEVK-DdL-3 (COVID-19) Ad26 vaccine, recombinantPatrick BLAS [facility]08-30-2021SARS-CoV-2 (COVID-19) mRNA BNT-162b2 vaxJENNIFER GABRIEL [facility] HospitalComment on above:Result Comment: 2023-07-22: DWD9790-22-6333fmteamomi virus vaccine, unspecified formulationLIANNA RIOS [facility]10-29-2019influenza, injectable, quadrivalent, preservative Antelmo Rogers MD Work Phone: [facility] HospitalIngfqf38-72-3907npqusppwh virus vaccine, unspecified formulationMERLYNINES IROS [facility]10-27-2014influenza, injectable, quadrivalent, preservative Antelmo Rogers MD Work Phone: [facility] HospitalHlddnh84-25-7642qkcwuowwc virus vaccine, unspecified formulationMio Rogers MD Work Phone: [facility] HospitalSiplpq06-76-8852bmxybieab virus vaccine, unspecified formulationMio Rogers MD Work Phone: [facility] HospitalMnjiih81-75-5779mjrvpqj toxoid, reduced diphtheria toxoid, and acellular pertussis vaccine, adsorbedOseas BLAS [facility] HospitalNEGATED: Highlighted row has not occurred!32-17-6817nunkhscuo virus vaccine, unspecified formulation Oseas BLAS [facility] Payers DatePayer CategoryPayerPolicy [id number]-mbu [id number] Health Insurance [id number] (Managed Care) [id number] Health [id number] BLUE CROSS AND BLUE SHIELD ANTHEM MEDIBLUE HMO [id number] 2020-Present [phone] [id number] [place] [address] [id number]. UnknownANTHEM BLUE CROSS AND BLUE SHIELD ANTHEM MEDIBLUE HMO [id number] 2020-Present [phone] [address] [place] [address] HMO [id number] 2019Medicare [id number] 2.0.1.823948.3.57[id number] 2.840.1.994290.3.57[id number] 2.840.1.354035.3.57[id number] 2.840.1.301085.3.57[id number] 2.840.1.724395.3.57[id number] 2.840.1.641756.3.57[id number] 2.840.1.027632.3.57[id number] 2.840.1.893421.3.57[id number] 2.840.1.404651.3.57[id number] 2..840.1.272166.3.57[id number] 2..840.1.799990.3.57[id number] 2..840.1.555309.3.57[id number] 2..840.1.444760.3.57[id number] 2.840.1.614724.3.57[id number] 2.840.1.219053.3.57[id number] 2.840.1.535184.3.57[id number] 2.840.1.332139.3.57[id number] 2..840.1.000576.3.57[id number] 2.840.1.699548.3.57[id number] 2.840.1.302634.3.57[id number] 2.840.1.889888.3.579.2.[id number] 2..840.1.605557.3.57[id number] 2.840.1.784301.3.57[id number] 2.16.840.1.270404.3.57[id number] 2.16.840.1.106309.3.579.[id number] 2.16.840.1.496056.3.57[id number] 2..840.1.758771.3.57[id number] 2..840.1.133412.3.57[id number] 2.16.840.1.711468.3.57[id number] 2..840.1.533117.3.579.2.1259 196[id number] 2..840.1.807798.3.579.2.531 Social History DateTypeDetailFacilityStart: 09-13-2020 End: 47-81-4861Kehmqxd smoking statusNever smoked tobacco (finding)[facility] HospitalComment on above:deneisStart: 11-05-2012 End: 20-61-4843Dqhtjps smoking statusNeverOhio Valley HospitalComment on above:deneisStart: 07-11-2022 End: 95-50-4787Cnu Assigned At BirthFemalGlenbeigh Hospitaltart: 09-17-2021 End: 22-68-8107Bzliqbz intakeCurrent drinker of alcohol (finding)[facility]tart: 33-06-5510Jug Assigned At BirthNot on fileMemorial Health System [facility] Memorial Hospitaltart: 10-43-1518Ickymed use and exposureSmokeless tobacco non-userAkron Children'S Hospital Start: 07-11-2022 End: 87-95-7348Lxwwwzl of Social functionMemorial Health System [facility] Hospitaltart: 09-02-2020 End: 72-88-1304Cdiufbtp to SARS-CoV-2 (event)Not sureMemorial Health System [facility] Memorial Hospitaltart: 12-22-2024 End: 56-87-6623Mxuezkggx beverage intakeLifetime non-drinker (finding)[facility] HealthcareTobacco smoking status NHISUnknown if ever smokedBlanchard Valley Health System [facility] Work Phone: Start: 03-07-2010 End: 52-95-1839XizPkykyx (finding)[facility]: 84-91-7567Qoh Assigned At [facility] Hospitalexual [facility] Functional Status FqrtGtkeqjdpiwQpruqaXygrpkvo38-97-0979Ufgmkiszaf StatusN/AExec[facility]04-30-2024Functional StatusN/A[facility]08-29-2023Functional StatusN/A [facility]07-31-2023Functional StatusN/AFTriHealth [facility]12-07-2022Functional StatusN/AExec[facility] of [place] 247820-27-2022Functional StatusN/A [facility]06-26-2015Are you deaf, or do you have serious difficulty hearingNo 05/19/2015 1:19 PM Whitney Donato (Rn), RN No [facility] HospitalVkqcav23-16-6165Apt you blind, or do you have serious difficulty seeing, even when wearing glassesNo 05/19/2015 1:19 PM Whitney Donato (Rn), RN NoCUniversity Hospitals Lake West Medical CenterYscwri55-53-8046Zc you have serious difficulty walking or climbing stairsYes 05/19/2015 1:19 PM Whitney Donato (Rn), RN Yes [facility] HospitalKpaclv98-70-7890Kq you have difficulty dressing or bathingYes 05/19/2015 1:19 PM Whitney Donato (Rn), RN YesAkron Children'S Hospital 60-39-8859Tgqpwbw of a physical, mental, or emotional condition, do you have difficulty doing errands alone such as visiting a physician's office or shopping Yes 05/19/2015 1:19 PM EDT Whitney Saucedo (Rn), RN YesAkron Children'S Hospital Mental Status XzbhYncnzthczlFyurqtUtqqmxhr60-52-7142Fdiqqof of a physical, mental, or emotional condition, do you have serious difficulty concentrating, remembering, or making decisionsNo 05/19/2015 1:19 PM EDT Whitney SaucedoRn), RN No [facility] Clinical Notes 02-12-2022 to 09-14-2025 Note Date & DociAzijSrgxffjz21-50-4709 History of Present illness Narrative* ELIDA Cook - 09/14/2025 3:00 PM EDT History: Pt was referred to ENT because of chronic OM left ear and dizziness. 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 Her left eye and the left side of her face droop. Pt indicated her condition now is much better than when she was diagnosed in January. Pt also had left ear pain and swelling in the ear similar to cauliflower ear. At times the left ear feels plugged but she does not notice difficulty hearing. Pt saw Dr Pichardo 09-06-25. Her ears were clear. Hallpike positive left side. Otoscopic Exam: Ear canal clear and TM intact AU Pure Tone Audiometry Right Ear: Normal hearing Left Ear: Normal hearing Speech Audiometry Right SRT = 15 dB and word discrimination score at 50 dBHL = 100% Left SRT = 15 dB and word discrimination score at 50 dBHL = 100% Tympanometry Right Ear: Type A tympanogram Left Ear: Type A tympanogram documented in this encounterSaint Luke's Health SystemQyoqxvgjdf09-93-9981 History of Present illness Narrative* Essence Pichardo MD - 09/06/2025 8:40 AM EDT Subjective Patient ID: Monika Haskins is a 54 y.o. female who presents for Ear Problem (Chronic otitis media) Pt has had left ear fullness and pain for 8 weeks. Tx with mult abx. Developed left facial paralysis in January. 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 Facial paralysis tx with steroids and antivirals. Not followed by neurology. 01/2025 CT head reviewed and there is no otologic abnormality. Review of Systems All other systems reviewed and are negative. Family History[1] Active Ambulatory Problems Diagnosis Date Noted Abnormality [...] Adult BMI 33.0-33.9 kg/sq m 09/05/2025 Oligohydramnios (HHS-HCC) 09/05/2025 Overactive bladder 09/05/2025 Placental insufficiency (HHS-HCC) 09/05/2025 Postinfective urethral stricture in female 09/05/2025 [...] menses 12/15 Menopause Menopause ovarian failure 08/2015 Surgical History[2] Allergies[3] Medications Ordered Prior to Encounter[4] Objective Last Recorded Vitals Vitals: 09/06/25 0851 BP: 118/83 Pulse: 98 ENT Physical Exam Constitutional Appearance: patient appears well-developed, well-nourished and well-groomed, Constitutional comments: Strongly positive left Radhika-Hallpike. Grade 3/6 left facial paralysis Head and Face Appearance: head appears normal and face appears atraumatic; Ear Ear Canals: right ear canal normal; left ear canal normal; Tympanic Membranes: right tympanic membrane normal; left tympanic membrane normal; Ear comments: Sage tymps normal. Ramesh midline Nose External Nose: nares patent bilaterally; external nose normal; Internal Nose: septum normal; Oral Cavity/Oropharynx Tongue: normal; Oral mucosa: normal; Hard palate: normal; Soft palate: normal; Tonsils: normal; Neck Neck: neck normal; neck palpation normal; Thyroid: thyroid normal; Respiratory Inspection: breathing unlabored; normal breathing rate; Auscultation: breath sounds are clear; Cardiovascular Inspection: extremities are warm and well perfused; no peripheral edema present; Auscultation: regular rate and rhythm; Assessment/Plan Diagnoses and all orders for this visit: Ear fullness, left 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 BPPV (benign paroxysmal positional vertigo), left Pt does not have left OME. I will check an audio to evaluate pt's HL. Monika will also get a disk of her most recent MRI for me to remove. She also very clearly has left BPPV. I will refer her to Merlin Gill for a left Steph [1] Family History Problem Relation Name Age of Onset Heart failure Father tomeka Diabetes Maternal Grandfather aniceto [2] Past Surgical History: Procedure Laterality Date BRAIN BIOPSY 2011 SECTION, LOW TRANSVERSE [address] GUIDED IMAGING FOR STEREOTACTIC LOCALIZATION 11/25/2012 CT GUIDED IMAGING FOR STEREOTACTIC LOCALIZATION OTHER SURGICAL HISTORY mass in uterus 2024 [3] Allergies Allergen Reactions Bee Venom Swelling Morphine Hives and Rash Pt had a morphine injection and broke out in hives, with itching [4] Current Outpatient Medications on File Prior to Visit Medication Sig Dispense Refill azithromycin (Zithromax) 250 MG tablet TAKE 2 TABLETS BY MOUTH TODAY, THEN TAKE 1 TABLET DAILY FOR 4 DAYS DIRECTED baclofen (Lioresal) 10 MG tablet Take 10 mg by mouth in the morning. erythromycin (Romycin) 5 MG/GM ophthalmic ointment APPLY TO AFFECTED EYE BEFORE BEDTIME EACH DAY Gemtesa 75 MG tablet Take 75 mg by mouth onabotulinumtoxinA (Botox) 100 units injection Inject as directed 1 (one) time phentermine 37.5 MG capsule 37.5 mg predniSONE (Deltasone) 10 MG tablet TAKE 3 TABS DAILY X3 DAYS, 2 TABS DAILY X3 DAYS, 1 TAB DAILY X3DAYS DIRECTED sertraline (Zoloft) 25 MG tablet Take 25 mg by mouth valACYclovir (Valtrex) 1 g tablet Take 1 g by mouth ciprofloxacin-dexAMETHasone (CiproDEX) otic suspension PLACE 10 DROPS INTO AFFECTED EAR(S) TWICE A DAY FOR 7 DAYS Estrace 1 MG tablet gabapentin (Neurontin) 300 MG capsule See Instructions, TAKE 1 CAPSULE BY MOUTH TWICE A DAY, # 60 cap(s), Refills(s) 0, Pharmacy: [id number], 180, cm, 03/22/25 13:45:00 EDT, Height/Length Dosing, 100.4, kg, 03/22/25 13:45:00 EDT, Weight Dosing (Patient not taking: Reported on 09/06/2025) No current facility-administered medications on file prior to visit. documented in this [facility]09-17-2025 NoteHNO ID: [id number] Author: PATRICK BUSTAMANTE MD Service: ? Author Type: Physician Type: Progress Notes Filed: 08/10/2025 12:44 Note Text: BOTULINUM TOXIN THERAPY - Informed consent was signed on 11/12/2023. Patient accompanied by: No one Current complaints / history since last visit: most recent botulinum toxin injections on 12/15/2024. She reports that Botox injections were effective with less stiffness and improved range of motion. He arm was looser. She had better positioning. Walking was better. She denies spasms. Oral antispasticity medications: Baclofen 10 mg once daily Illnesses / hospitalizations since the last visit: She was hospitalized in January for Reis's Palsy Other updates: No Anticoagulation: No Home stretching/exercise routine: She performs stretching exercises daily at bedtime PT/OT: She is in physical therapy once a week BT therapy effective? Yes - stiffness, other and active function (range of motion) Duration of benefit: 8 weeks Side effects: No Spasm scale: 0=No spasm Pain related to the purpose of the visit: Yes LOCATION: Left shoulder PAIN SCALE: 2 on a scale of 0-10 PAIN CHARACTER: Tightness DURATION: (How long have you had the [...] risk for falling: Yes, frequency once a month, no injuries per patient Examination: Strength Right Left Shoulder abduction 5 2 Elbow flexion 5 1+ Elbow extension 5 2 Wrist extension 5 0 Hip flexion 5 3 Knee flexion 5 2 Knee extension 5 3+ Plantarflexion 5 Dorsiflexion 5 Strength: She is wearing left AFO. Spasticity Right Left Shoulder 0 3 Elbow flexors 0 2 Elbow extensors 0 3 Wrist flexors 0 0 Wrist extensors 0 2 Finger flexors 0 4 Finger extensors 0 0 Hip adductors 0 [...] In: A Moment of CARE was completed. Appropriate PPE (Personal Protective Equipment) worn by all providers involved with the procedure. Special equipment utilized EMG. Patient/Surrogate Stated/Verified: Patient name, Date of , Relevant allergies, and The intended procedure Time Out: Relevant labs, photos, and/or imaging studies are not applicable. Intended patient and procedure match the source document(s) (e.g. consent, HANDP, associated studies [imaging, pathology]) match the intended patient and procedure. Consent obtained and matches the intended procedure. Yes. Correct side/site has been marked and visible. Medications required for this procedure are verified. Fire risk assessed and is not applicable. Implants: are not applicable. Sign Out: Specimens NA All instruments, equipment, possible retained foreign bodies are accounted for. Yes. The post-procedure plan of care has been communicated to the patient or surrogate. The risks, benefits and alternatives of the procedure were explained. Written Consent Obtained: yes - 11/12/2023 Clinician(s) performing the injections: Patrick Bustamante MD Base Remover: Leidy Rico LPN and Dee Wu MA The patient was positioned lying supine on the exam table. Brand of toxin injected: Botox. After skin preparation with alcohol, a total dose of 400 units were injected as follows: Muscle Limb/Side Dose Guidance Comments Biceps LUE 75 units EMG 2 sites Triceps LUE 100 units (more content not included)...[facility] 08-10-2025 History of Present illness Narrative* Patrick Bustamante MD - 08/10/2025 11:10 AM EDT Images from the original note were not included. BOTULINUM TOXIN THERAPY - Informed consent was signed on 11/12/2023. Patient accompanied by: No one Current complaints / history since last visit: most recent botulinum toxin injections on 12/15/2024.She reports that Botox injections were effective with less stiffness and improved range of motion. He arm was looser. She had better positioning. Walking was better. She denies spasms. Oral antispasticity medications: Baclofen 10 mg once daily Illnesses / hospitalizations since the last visit: She was hospitalized in January for Reis's Palsy Other updates: No Anticoagulation: No Home stretching/exercise routine: She performs stretching exercises daily at bedtime PT/OT: She is in physical therapy once a week BT therapy effective? Yes - stiffness, other and active function (range of motion) Duration of benefit: 8 weeks Side effects: No Spasm scale: 0=No spasm Pain related to the purpose of the visit: Yes LOCATION: Left shoulder PAIN SCALE: 2 on a scale of 0-10 PAIN CHARACTER: Tightness DURATION: (How long have you had the [...] risk for falling: Yes, frequency once a month, no injuries per patient Examination: Strength Right Left Shoulder abduction 5 2 Elbow flexion 5 1+ Elbow extension 5 2 Wrist extension 5 0 Hip flexion 5 3 Knee flexion 5 2 Knee extension 5 3+ Plantarflexion 5 Dorsiflexion 5 Strength: She is wearing left AFO. Spasticity Right Left Shoulder 0 3 Elbow flexors 0 2 Elbow extensors 0 3 Wrist flexors 0 0 Wrist extensors 0 2 Finger flexors 0 4 Finger extensors 0 0 Hip adductors 0 [...] OR no support and 25 ft > 20sec UNIVERSAL PROTOCOL / SAFETY CHECKLIST Procedure to be Performed: Botulinum Toxin Injections Sign In: A Moment of CARE was completed. Appropriate PPE (Personal Protective Equipment) worn by all providers involved with the procedure. Special equipment utilized EMG. Patient/Surrogate Stated/Verified: Patient name, Date of , Relevant allergies, and The intended procedure Time Out: Relevant labs, photos, and/or imaging studies are not applicable. Intended patient and procedure match the source document(s) (e.g. consent, H&P, associated studies [imaging, pathology]) match the intended patient and procedure. Consent obtained and matches the intended procedure. Yes. Correct side/site has been marked and visible. Medications required for this procedure are verified. Fire risk assessed and is not applicable. Implants: are not applicable. Sign Out: Specimens NA All instruments, equipment, possible retained foreign bodies are accounted for. Yes. The post-procedure plan of care has been communicated to the patient or surrogate. The risks, benefits and alternatives of the procedure were explained. Written Consent Obtained: yes - 11/12/2023 Clinician(s) performing the injections: Patrick Bustamante MD Base Remover: Leidy Rico LPN and Dee Wu MA The patient was positioned lying supine on [...] 100 units / 2 ml LOT #: [id number] Expiration Date: Month: 10 Year: 27 The injections were well tolerated. Minimal bleeding occurred at the injection sites. 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 Botox injections were effective and well tolerated. I discussed spasticity treatment options with the patient and she was agreeable tocontinuing botox injections, increasing the dose. We repeated botox injections today without immediate complications. We will repeat botox injections in 3 months, same muscles and total dose of 400 units. She is to continue to perform stretching exercises daily and in physical therapy. She continues to recover from Reis's palsy and was advised to establish care with neurology. She would like to have care at [facility]. I placed an order in [facility] and have requested from colleagues recommendations of neurology who she could see. Staff will contact the office to assist in scheduling. MS BT PRE AUTH Plan: 1 - Repeat injections in 3 months, 400 units. Transfers independently. 2 - Continue to perform stretching exercises daily and physical therapy. 3 - Referral to neurology to establish care for Reis's palsy. Time spent with patient: 45 mn. Patrick Bustamante MD documented in this encounterAkron Children'S Hospital09-16-2025 Instructions* Patient Instructions* Patrick Bustamante MD - 08/09/2025 8:39 AM EDT You have received botulinum toxin injections today. The skin around the site of injections should be monitored for a couple of days. If redness or swelling occur, the skin should be examined by a health residential caregiver to rule out infection. If you experience pain in the muscles injected over the next few days, you can take Tylenol to control the pain (unless contra-indicated). Please call our office at [phone] with any questions or concerns. Patrick Bustamante MD documented in this encounterAkron Children'S Hospital06-30-2025 Hospital Discharge instructions Patient Education 05/23/2025 12:51:25 Overactive Bladder, Adult Overactive Bladder, Adult Overactive [...] You may also have very sensitive muscles thatmake your bladder squeeze too soon. This condition [...] your health care provider. General instructions Take aoci-nud-mhcvgan and prescription medicines only as told by your health care provider. If you were prescribed an antibiotic medicine, take it as told by your health care provider. Do notstop taking the antibiotic even if you start [...] provider. Document Revised: 07/30/2021 Document Reviewed: 07/30/2021 [employer] Patient Education 2023 [employer]. Follow Up Care 05/16/2025 10:34:01 With:[facility] Address: When: Unknown Comments:Only if needed/new problems arise. No scheduled appointment indicated at this time. [facility] 06-30-2025 NotePatient Education Obstetrics and Gynecology Overactive Bladder, Adult [...] You may also have very sensitive muscles thatmake your bladder squeeze too soon. This condition may also be caused by other factors, such as: ??? Medical conditions: ? Urinary tract infection. ? Infection of nearby tissues. ? Prostate enlargement. ? Bladder stones, inflammation, or tumors. ? Diabetes. ? Muscle or nerve weakness, especially from these conditions: ? A spinal cord injury. ? Stroke. ? Multiple sclerosis. ? Parkinson's disease. ??? Other causes: ? Surgery on the uterus or urethra. ? Drinking too much caffeine or alcohol. ? Certain medicines, especially those that eliminate extra fluid in the body (diuretics). ? Constipation. What increases the risk? You may be at greater risk for overactive bladder if you: ??? Are an older adult. ??? Smoke. ??? Are going through menopause. ??? Have prostate problems. ??? Have a neurological disease, such as stroke, dementia, Parkinson's disease, or multiple sclerosis (MS). ??? Eat or drink alcohol, spicy food, caffeine, and other things that irritate the bladder. ??? Are overweight or obese. What are the signs or symptoms? Symptoms of this condition include a sudden, strong urge to urinate. Other symptoms include: ??? Leaking urine. ??? Urinating 8 or more times a day. ??? Waking up to urinate 2 or more times overnight. How is this diagnosed? This condition may be diagnosed based on: ??? Your symptoms and medical history. ??? A physical exam. ??? Blood or urine tests to check for possible causes, such as infection. You may also need to see a health care provider who specializes in urinary tract problems. This is called a urologist. How is this treated? Treatment for overactive bladder depends on the cause of your condition and whether it is mild or severe. Treatment may include: ??? Bladder training, such as: ? Learning to control the urge to urinate by following a schedule to urinate at regular intervals. ? Doing Kegel exercises to strengthen the pelvic floor muscles that support your bladder. ??? Special devices, such as: ? Biofeedback. This [...] into the vagina and supports the bladder. ??? Medicines, such as: ? Antibiotics to treat bladder infection. ? Antispasmodics to stop the bladder from releasing urine at the wrong time. ? Tricyclic antidepressants to relax bladder muscles. ? Injections of botulinum toxin type A directly into the bladder tissue to relax bladder muscles. ??? Surgery, such as: ? A device may be implanted to help manage the nerve signals that control urination. ? An electrode may be implanted to stimulate electrical signals in the bladder. ? A procedure may be done to change the shape of the bladder. This is done only in very severe cases. Follow these instructions at home: Eating and drinking ??? Make diet or lifestyle changes recommended by [...] such as fried and sweet foods. Lifestyle ??? Lose weight if needed. ??? Do not use any products that contain nicotine or tobacco. These include cigarettes, chewing tobacco, and vaping devices, such as e-cigarettes. If you need help quitting, ask your health care provider. General instructions ??? Take wftt-avw-vrfflbc and prescription medicines only as told by your health care provider. ??? If you were prescribed an antibiotic medicine, take it as told by your health care provider. Donot stop taking the antibiotic even if you start to feel better. ??? Use any implants or pessary as told by your health care provider. ??? If needed, wear pads to absorb urine leakage. ??? Keep a log to track how much and when you drink, and whe (more content not included)...[facility]06-10-2025 Hospital Discharge instructions Patient Education 05/03/2025 14:07:08 EU - Cystoscopy with Botox Injection Discharge [...] fever over 100 degrees. Follow Up Care 04/14/2025 11:34:21 With:Oseas BLAS Address: [address] [place], [place] [id number]- Business (1) When: Unknown Comments:Keep scheduled appointment [facility] 06-10-2025 NotePatient Education Custom Cystoscopy with Botox injection ??? Voiding after the procedure: there may be some pain, burning, urgency, frequency and blood tinged urine following the procedure. These symptoms usually resolve within 2-5 days. Drink the amount of fluid it takes to keep the urine pink to yellow or clear in color. Drinking enough water and fluids will help to ease any discomfort after your procedure. ??? It may take a few days to a week to notice a gradual improvement in the overactive bladder symptoms. ??? If you are having problems that seem out of the ordinary, please call. ??? If unable to contact your physician and you feel it is an emergency, go to the nearest emergency room or call 911 ??? Do not lift more than fifteen pounds for 1-2 days. If you see a lot of blood, you probably did too much. ??? Diet ??? you may resume your normal diet. ??? Pain control ??? You may take extra strength Tylenol or Motrin for discomfort. ??? Call if you have a fever over 100 degrees.[facility] 01-12-2025 History of Present illness Narrative* ERON Curtis - 01/12/2025 1:40 PM EST Reason for Appointment: Patient ID: Monika Haskins [...] having a D&C Hysteroscopy performed at [facility] with Dr. Agosto. Pathology results was reviewed [...] behalf of: ERON Curtis documented in this encounterSaint Luke's Health [id number] History of Present illness Narrative* ERON Curtis - 12/22/2024 3:30 PM EST Reason for Appointment: Patient ID: Monika Haskins [...] nursing note reviewed. Exam conducted with a logistics coordinator present. Vitals: Estimated body mass index is [...] of Carter Agosto DO documented in this encounterSaint Luke's Health [id number] NoteHNO ID: [id number] Author: PATRICK BUSTAMANTE MD Service: ? Author [...] Clinician(s) performing the injections: Patrick Bustamante MD Base Remover: Leidy Rico LPN and Danielle Snyder RN [...] 100 units / 2 ml LOT #: [id number] Expiration Date: Month: 4 Year: 27 The injections were (more content not included)...[facility] 12-15-2024 History of Present illness Narrative* Patrick Bustamante MD - 12/15/2024 1:02 PM EST Images from the original note were not [...] OR no support and 25 ft > 20sec UNIVERSAL PROTOCOL / SAFETY CHECKLIST Procedure to [...] Clinician(s) performing the injections: Patrick Bustamante MD Base Remover: Leidy Rico LPN and Danielle Snyder RN [...] 100 units / 2 ml LOT #: [id number] Expiration Date: Month: 4 Year: 27 The [...] with the patient and she was agreeable tocontinuing botox injections, increasing the dose. We repeated [...] mn. Patrick Bustamante MD documented in this encounterAk[facility]-21-[facility] Instructions* Patient Instructions* Patrick Bustamante MD - 12/14/2024 12:10 PM EST You have received botulinum toxin injections today. The skin around the site of injections should be monitored for a couple of days. If redness or swelling occur, the skin should be examined by a health residential caregiver to rule out infection. If you experience pain in the muscles injected over the next few days, you can take Tylenol to control the pain (unless contra-indicated). Please call our office at [phone] with any questions or concerns. Patrick Bustamante MD documented in this encounterAkron Children'[facility] Hospital10-16-2024 NoteHNO ID: [id number] Author: PATRIKC BUSTAMANTE MD Service: ? Author Type: Physician [...] Clinician(s) performing the injections: Patrick Bustamante MD Base Remover: Leidy Rico LPN and Danielle Snyder RN [...] 100 units / 2 ml LOT #: [id number] Expiration Date: Month: 12 Year: 26 The injections were well tolerated. Minimal bleeding occurred at the injection sites. Assessment: (G81.14) Spastic (more content not included)...[facility] 2024 History of Present illness Narrative* Patrick Bustamante MD - 2024 11:24 AM EDT Images from the original note were not [...] OR no support and 25 ft > 20sec UNIVERSAL PROTOCOL / SAFETY CHECKLIST Procedure to [...] Clinician(s) performing the injections: Patrick Bustamante MD Base Remover: Leidy Rico LPN and Danielle Snyder RN [...] 100 units / 2 ml LOT #: [id number] Expiration Date: Month: 12 Year: 26 The injections were well tolerated. Minimal bleeding occurred at the injection sites. 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 Botox injections were effective and well tolerated. I discussed spasticity treatment options with the patient and she was agreeable tocontinuing botox injections, increasing the dose. We repeated [...] Note copied to Mio Rogers MD via [employer]. Time spent with patient: 40 mn. Patrick Bustamante MD documented in this encounterAkron Children'[facility] Hospital10-15-2024 Instructions* Patient Instructions* Patrick Bustamante MD - 09/07/2024 10:17 AM EDT You have received botulinum toxin injections today. The skin around the site of injections should be monitored for a couple of days. If redness or swelling occur, the skin should be examined by a health residential caregiver to rule out infection. If you experience pain in the muscles injected over the next few days, you can take Tylenol to control the pain (unless contra-indicated). Please call our office at [phone] with any questions or concerns. Patrick Bustamante MD documented in this encounterAkron Children'[facility] Hospital07-09-2024 Hospital Discharge instructions Patient Education 06/01/2024 15:02:53 Urinary Incontinence Urinary Incontinence Urinary incontinence refers to a condition in which a person is unable to control where and when topass urine. A person with this condition will urinate involuntarily. This means that the person urinates when he or she does not mean to. What are the causes? This condition may be caused by: Medicines. Infections. Constipation. Overactive bladder muscles. Weak bladder muscles. Weak pelvic floor muscles. These muscles provide support for the bladder, intestine, and, in women,the uterus. Enlarged prostate in men. The prostate [...] a small amount, or constantly dribbling urine (overflowincontinence). Urinating because you cannot get to the [...] fiber include beans, whole grains, and fresh fruitsand vegetables. Behavioral changes, such as: ?Pelvic floor [...] nerve stimulation). ?For women, using a medical staffing coordinator to prevent urine leaks. This is a small, tampon-like, disposabledevice that is inserted into the urethra. ?Injecting [...] right after experiencing incontinence. General instructions Take hesz-glp-fbuxjng and prescription medicines only as told by [...] important. Where to find more information National [place] of Diabetes and Digestive and Kidney Diseases: www.niddk.nih.gov Citizen Of [place] Urology Association: www.urologyhealth.org Contact a health care [...] is unable to control where and when topass urine. This condition may be caused by medicines, infection, weak bladder muscles, weak pelvic floor muscles, enlargement of the prostate (in men), or surgery. Factors such as older age, obesity, and childbirth, menopause, neurological diseases, andchronic coughing may increase your risk for developing [...] provider. Document Revised: 06/15/2021 Document Reviewed: 06/15/2021 [employer] Patient Education 2022 [employer]. 06/01/2024 15:02:52 Overactive Bladder, Adult Overactive [...] You may also have very sensitive muscles thatmake your bladder squeeze too soon. This condition [...] your health care provider. General instructions Take svuc-xri-sxzoqjx and prescription medicines only as told by your health care provider. If you were prescribed an antibiotic medicine, take it as told by your health care provider. Do notstop taking the antibiotic even if you start [...] provider. Document Revised: 07/30/2021 Document Reviewed: 07/30/2021 [employer] Patient Education 2022 [employer]. Follow Up Care 03/23/2024 15:00:41 With:DIANA Case APRN, Elo Michel, AURELIO, URL Address: When: Unknown Comments:1 year [facility] 07-03-2024 History of Present illness Narrative* Patrick Bustamante MD - 05/26/2024 12:49 PM EDT Images from the original note were not included. BOTULINUM TOXIN THERAPY - Informed consent was signed on 11/12/2023. Patient accompanied by: No one. Current complaints / history since last visit: most recent botulinum toxin injections on 02/18/2024.She reports that botox injections were effective with [...] OR no support and 25 ft > 20sec UNIVERSAL PROTOCOL / SAFETY CHECKLIST Procedure to [...] Clinician(s) performing the injections: Patrick Bustamante MD Base Remover: Leidy Rico LPN and Danielle Snyder RN [...] 100 units / 2 ml LOT #: [id number] Expiration Date: Month: 8 Year: 26 The [...] with the patient and she was agreeable tocontinuing botox injections, increasing the dose and adding the left pectoralis muscle. We repeatedbotox injections today without immediate complications. We will [...] Note copied to Mio Rogers MD via [employer]. Time spent with patient: 45 mn. Patrick Bustamante MD documented in this encounterAkron Children'[facility] Hospital07-02-2024 Instructions* Patient Instructions* Patrick Bustamante MD - 05/25/2024 5:14 PM EDT You have received botulinum toxin injections today. The skin around the site of injections should be monitored for a couple of days. If redness or swelling occur, the skin should be examined by a health residential caregiver to rule out infection. If you experience pain in the muscles injected over the next few days, you can take Tylenol to control the pain (unless contra-indicated). Please call our office at [phone] with any questions or concerns. Patrick Bustamante MD documented in this encounterAkron Children'[facility] Hospital06-26-2024 Telephone encounter Note * Telephone Encounter - Penelope Daugherty RN - 05/19/2024 2:35 PM EDT [employer] approved till 11/16; no units [place] [facility] Work Phone: [phone]) 889-396806-26-2024 Miscellaneous Notes* Telephone Encounter - Penelope Daugherty RN - 05/19/2024 2:35 PM EDT [employer] approved till 11/16; no units [place] documented in this encounterAkron Children'[facility] Hospital06-14-2024 Telephone encounter Note * Telephone Encounter - Blanca Corey - 05/07/2024 10:29 AM EDT Monika Haskins is calling Mio Rogers MD today regarding Cafeteria Director - Other ([place] [employer] Form ) Patient has been identified by name and birthdate. Patient called to enquire if we have received the [place] [employer] Form faxed to us minutes ago, I checked and informed her yes. She requested it to be filled and faxed back over today. The fax was forwarded over to the [facility] nurses. Patient can be reached at: [phone] (home) Blanca Corey May 07, 2024 [facility]06-[facility] Miscellaneous Notes* Telephone Encounter - Blanca Corey - 05/07/2024 10:29 AM EDT Monika Haskins is calling Mio Rogers MD today regarding Cafeteria Director - Other ([place] [employer] Form ) Patient has been identified by name and birthdate. Patient called to enquire if we have received the [place] [employer] Form faxed to us minutes ago, I checked and informed her yes. She requested it to be filled and faxed back over today. The fax was forwarded over to the [facility] nurses. Patient can be reached at: [phone] (home) Blanca Corey May 07, 2024 documented in this encounterAkron Children'[facility] Hospital05-24-2024 Nurse Note* Maryann Loza LPN - 04/16/2024 4:08 PM EDT Additional intake questions: Has the patient had fever, nausea, vomiting, diarrhea, constipation, fatigue for > 1 week? No Does the patient have a decreased appetite? No Does patient want to see a Physical Therapy Asst? No (yes to any of above refer patient to schedulers for dietitian appointment) ) Does patient have any new or increased numbness or tingling of extremities? No Is patient interested in fertility information? No Does patient need any prescription refills? No Does patient have an advanced directive in place? no [facility] Nurse Note* Maryann Loza LPN - 04/16/2024 4:08 PM EDT Additional intake questions: Has the patient had fever, nausea, vomiting, diarrhea, constipation, fatigue for > 1 week? No Does the patient have a decreased appetite? No Does patient want to see a Physical Therapy Asst? No (yes to any of above refer patient to schedulers for dietitian appointment) ) Does patient have any new or increased numbness or tingling of extremities? No Is patient interested in fertility information? No Does patient need any prescription refills? No Does patient have an advanced directive in place? no documented in this encounterAkron Children'S Hospital05-24-2024 History of Present illness Narrative* Mio Rogers MD - 04/16/2024 4:00 PM EDT Images from the original note were not included. (Elements copied from prior note dated 09/17/2021, have been reviewed and updated where appropriate, and all reflect current assessment and medical decision-making during today's encounter, 04/16/2024) [facility] Monika Haskins is a 53 year old female patient. CC: AL amyloidoma of PRODUCE SORTER HPI: Monika Haskins is a 51 year old female who presents today for follow up of AL (lambda) amyloidoma of PRODUCE SORTER. Overall she is doing well. Left sided hemiparesis stable. MRIb on 04/16 with stable right cerebral hemisphere biopsy-proven amyloidoma compared to 12/16/2022. Treatment History: Cyclophosphamide 500 mg weekly 3 weeks on and 1 week off and dexamethasone 40 mgweekly. Start 12/02/12. Dexamethasone decreased to 12 mg [...] No history of dysuria, frequency or incontinence DRILLER MACHINE: Negative for abnormal vaginal bleeding, abnormal vaginal discharge MUSCULOSKELETAL: Negative for joint pain or swelling, back pain or muscle pain. NEUROLOGIC:See HPI SKIN:Negative for lesions, rash, and itching. PSYCHIATRIC: sleep and mood disturbance with dexamethasone HEMATOLOGIC/LYMPHATIC/IMMUNOLOGIC:bruising easily ENDOCRINE: Negative for cold or heat [...] Ht 180.3 cm (5' 11 ) Wt 107.2kg (236 lb 5.3 oz) LMP 09/19/2014 SpO2 [...] percussion normal, good diaphragmatic excursion, no wheezing orrhonchi Heart: RRR without murmur, gallop, or rubs. [...] 0.00 08/16/2013 0.00 02/22/2013 0.00 01/25/2013 0.00 Milam Free, Serum (mg/L) Date Value 12/16/2022 27.6 [...] to 11/05/2018. ASSESSMENT: 1. AL amyloidoma of PRODUCE SORTER. PLAN: 1. MRI is stable. Clinically doing well and no new symptoms. Labs reviewed - follow up light chainsbut all other labs today wnl. Continue observation off therapy for now. Needs 2 mg ativan prior to MRI's. Depression: Continue Celexa. Premature menopause: HRT. RTC 12 months with MRI. Plan was discussed with the patient and patient expressed understanding of the plan. Patient was seen and discussed in clinic with Staff Physician Dr. Mio Lynch MD, MPH PGY-IV Hematology/Oncology Fellow [facility] STAFF PHYSICIAN NOTE OF PERSONAL INVOLVEMENT IN CARE I have reviewed the progress note obtained and documented by the fellow and I personally participated in the fung components. I have discussed the case and management of the patient's care. The following comments revise or confirm relevant fung components of their note. IMPRESSION: This is a 53 year old female who presents with PRODUCE SORTER amyloidoma. PLAN: continue observation with imaging and labs at regular intervals. MRI today stable. Ongoing rehabiliation medicine evaluations as well. Mio Rogers MD documented in this encounterAkron Children'S Hospital05-24-2024 History of Present illness Narrative* Camilla Britt RN - 04/16/2024 2:00 PM EDT Radiology Service Progress Note DATE OF SERVICE: [...] Cane, Wheelchair, Crutches, etc.)? Yes, Patient High Riskfor Falls What interventions were put in place to prevent falls during this visit? [place] Risk Wristband Applied PATIENT GENDER DATA: Female. status: : No status: NO. ALLERGIES: Reviewed and unchanged CONTRAST ALLERGY: No EXAM: MRI - CONTRAST TYPE: GROUP II IV SITE: Ambulatory: A peripheral IV was started in the Left antecubital site with a Angio cath: 22gauge. IV SITE APPEARANCE: Clean,Dry and Intact SIGNATURE: Camilla Britt RN PATIENT NAME: Monika Haskins DATE: April 16, 2024 TIME: 1:52 PM * Seda Liriano RT(R) - 04/16/2024 2:00 PM EDT Radiology Service Progress Note PATIENT NAME: Monika Haskins DATE OF SERVICE: April 16, 2024 TIME: 2:35 PM PATIENT IDENTITY VERIFICATION COMPLETED USING TWO (2) IDENTIFIERS: Name and Date of confirmedby patient verbally. FALL SCREENING: Has the patient had 2 falls in the last year or 1 fall with injury or currently using an Ambulatory Assistive Device (Walker, Cane, Wheelchair, Crutches, etc.)? Yes, Patient High Riskfor Falls What interventions were put in place to prevent falls during this visit? [place] Risk Wristband Applied PATIENT GENDER DATA: Female. status: : No status: NO. PATIENT RELEVANT IMPLANT DATA REVIEWED: Yes PATIENT PRESENTS WITH AN IMPLANTABLE OR ATTACHED CASE WORK AIDE: No RADIOLOGY DEPARTMENT: MR; Exam(s) Completed: Head: Routine Brain PERIPHERAL IV DATA: Site assessment: Clean,Dry and Intact, Site disposition Left in for next appointment SIGNED BY: RT Ellie(R) April 16, 2024 2:35 PM documented in this encounterAkron Children'S Hospital04-30-2024 Hospital Discharge instructions Patient Education 03/23/2024 15:13:48 Urinary Incontinence Urinary Incontinence Urinary incontinence refers to a condition in which a person is unable to control where and when topass urine. A person with this condition will urinate involuntarily. This means that the person urinates when he or she does not mean to. What are the causes? This condition may be caused by: Medicines. Infections. Constipation. Overactive bladder muscles. Weak bladder muscles. Weak pelvic floor muscles. These muscles provide support for the bladder, intestine, and, in women,the uterus. Enlarged prostate in men. The prostate [...] a small amount, or constantly dribbling urine (overflowincontinence). Urinating because you cannot get to the [...] fiber include beans, whole grains, and fresh fruitsand vegetables. Behavioral changes, such as: ?Pelvic floor [...] nerve stimulation). ?For women, using a medical staffing coordinator to prevent urine leaks. This is a small, tampon-like, disposabledevice that is inserted into the urethra. ?Injecting [...] right after experiencing incontinence. General instructions Take xmtk-rzw-ljgrzgp and prescription medicines only as told by [...] important. Where to find more information National [place] of Diabetes and Digestive and Kidney Diseases: www.niddk.nih.gov Citizen Of [place] Urology Association: www.urologyhealth.org Contact a health care [...] is unable to control where and when topass urine. This condition may be caused by medicines, infection, weak bladder muscles, weak pelvic floor muscles, enlargement of the prostate (in men), or surgery. Factors such as older age, obesity, and childbirth, menopause, neurological diseases, andchronic coughing may increase your risk for developing [...] provider. Document Revised: 06/15/2021 Document Reviewed: 06/15/2021 [employer] Patient Education 2022 [employer]. 03/23/2024 15:13:47 Overactive Bladder, Adult Overactive [...] You may also have very sensitive muscles thatmake your bladder squeeze too soon. This condition [...] your health care provider. General instructions Take mvjp-dqf-jngttnx and prescription medicines only as told by your health care provider. If you were prescribed an antibiotic medicine, take it as told by your health care provider. Do notstop taking the antibiotic even if you start [...] provider. Document Revised: 07/30/2021 Document Reviewed: 07/30/2021 [employer] Patient Education 2022 [employer] 03/23/2024 15:13:46 Kegel Exercises Kegel Exercises [...] muscles. These are the same muscles you squeezewhen you try to stop the flow of [...] tight lift in your rectal area. If youare a female, you should also feel a [...] provider. Document Revised: 03/21/2022 Document Reviewed: 03/21/2022 [employer] Patient Education 2022 [employer] Follow Up Care 03/05/2024 10:45:48 With:DIANA Case APRN, AURELIO Del Castillo, URL Address: When: Unknown Comments:8 wks w/ PVR [facility] 02-28-2024 History of Present illness Narrative* Patrick Bustamante MD - 01/21/2024 12:18 PM EST REASON FOR VISIT: routine Patient accompanied by: [...] She is also swimming. Patient Entered Data [employer] No flowsheet data found. Spasticity NRS [...] or otherwise hurt by someone within the pastyear? No If so, by whom? Review of [...] cognition, language or prosody on interview. Formal STAMPING MILL TENDER testing was not performed today. Cranial Nerves: [...] OR no support and 25 ft > 20sec Cerebellar: finger to nose testing was without dysmetria on the right. She was unable to perform onthe left. Heel to rodriguez testing was without dysmetria. Fine movements were intact in the right hand.She was unable to perform on the left. Sensation: Light touch, vibration and proprioception were intact. Pinprick was not tested. 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 Improvement in spasticity is notedon examination. We will repeat botox injections on [...] on 02/18/2024, 300 units, transfers independently. The patientwas instructed to call should any problems occur in the meantime. 5. Note copied to Mio Rogers MD via [employer]. Time spent with patient: 40 minutes. More than 50% of the face to face time was dedicated to education and counseling regarding treatment options for spasticity. Patrick Bustamante MD documented in this [facility] Instructions* Patient Instructions* Patrick Bustamante MD - 01/21/2024 9:21 AM EST Baclofen 10 mg tablets Take 1 tablet in the morning, afternoon and at bedtime. Contact the office with any questions or concerns ([employer] or [phone]). Patrick Bustamante MD documented in this [facility]12-04-2023 Miscellaneous Notes* Telephone Encounter - Veronika Hyatt PA-C - 10/27/2023 11:32 AM EST The following approved medication requests have been transmitted electronically. Requested Prescriptions Signed Prescriptions Disp Refills baclofen 10 mg tablet 180 tablet 3 Sig: Take 1 tablet by mouth two times a day. Authorizing Provider: VERONIKA HYATT PA-C * Telephone Encounter - Penelope Daugherty RN - 10/27/2023 10:54 AM EST Last seen by Dr Bustamante on 09/03/23: [...] 10 mg in the morning if my toneis acting up Will change to Baclofen 10 mg twice a day Script updated; pending she verbalized understanding and agrees with plan No further concerns * Telephone Encounter - Tiffany Santillan - 10/24/2023 3:27 PM EST Source : mychart from patient requesting refill. Delivery : e-script Requested Prescriptions Pending Prescriptions Disp Refills baclofen 5 mg tablet Sig: Take 1 tablet by mouth as needed. DX : Patient last seen 09/03/2023 Next Appointment : 11/12/2023 Tiffany Santillan documented in this encounterAk[facility]10[facility] History of Present illness Narrative* Patrick Bustamante MD - 09/03/2023 8:26 AM EDT REFERRAL SOURCE: [facility] [id number] FOLLOWED BY: Erica Mercedes MD REASON FOR CONSULTATION: rehabilitation consult. PRINCIPAL NEUROLOGIC DIAGNOSIS: Tumefactive variant of cerebral amyloid angiopathy HISTORY OF ILLNESS: Date of Onset: 2011 BRIEF NARRATIVE DESCRIBING HISTORY: This 52 year old right handed female was referred by Mio Rogers MD for a spasticity consult. Thepatient was accompanied by no one. Medical records from [facility] were reviewed. Patient was in her regular state of health when in 2011, after of her second child. After delivery, she was hospitalized with an abdominal abscess and during that hospitalization she developed a pneumothorax and right UE DVT. She was discharged home and noted left leg weakness with difficultywalking. She was thought to have a herniated [...] had botox injections several years ago at [facility] with good results. She stopped the injections [...] dose not remember why it was discontinued. Tin performs stretching exercises daily and walks at [...] started using cane in 2013 in community, usesforearm crutch, independent or uses a scooter at home, uses scooter in the community with prolongeddistances. Current functional status: She is independent in [...] lbs over the last 2 years, actively tryingto lose weight, swallowing with no problems Driving [...] 12/16/2022 Neut% 62.8 12/16/2022 Lymph% 27.8 12/16/2022 [place]% 7.3 12/16/2022 Eosin% 1.2 09/17/2021 Baso% 0.4 12/16/2022 Abs Neut (ANC) 4.55 12/16/2022 Abs [place] 0.53 12/16/2022 Abs Eosin 0.10 12/16/2022 Abs [...] OR no support and 25 ft > 20sec Cerebellar: There was no dysmetria on qogand-ij-webd on the right. She was unable to perform on theleft. Ugsa-rg-gnol testing was without dysmetria bilaterally. Fine movements [...] baclofen, tizanidine and flexeril. She is a goodcandidate for botulinum toxin injections. I discussed the [...] FCR (50 units). We will repeat botox injectionsevery 3 months and prior to each session, [...] left arm initially and then consider in thefuture injecting the toe flexors (FDL and FDB). [...] Baclofen, Tizanidine and Other CPT Codes: Limbs: 08599, 19904, 30308 and 14687 EMG guidance: 76768 Limb(s) / area(s) injected: Left biceps, triceps, [...] Note copied to Mio Rogers MD via [employer]. Time spent with patient: 70 minutes. More than 50% of the face to face time was dedicated to education and counseling regarding treatment options for spasticity. Patrick Bustamante MD documented in this encounterAkron [facility]08-[facility]23 Hospital Discharge instructions Patient Education 07/22/2023 13:20:39 [...] You may also have very sensitive muscles thatmake your bladder squeeze too soon. This condition [...] your health care provider. General instructions Take anzv-nxu-alkeuad and prescription medicines only as told by your health care provider. If you were prescribed an antibiotic medicine, take it as told by your health care provider. Do notstop taking the antibiotic even if you start [...] provider. Document Revised: 07/30/2021 Document Reviewed: 07/30/2021 [employer] Patient Education 2022 [employer]. Follow Up Care 06/06/2023 14:34:51 With:LIANNA RIOS PA-C, URL Address: [address] [place] [address] When: Unknown [facility] 08-15-2023 Hospital Discharge instructions Patient Education 07/08/2023 11:38:59 [...] Urology [address], [place] [address]- Business (1) When: Unknown Comments:Call for any problems. [facility]08-15-2023 History of Present illness Narrative* Patrick Bustamante MD - 07/08/2023 1:01 PM EDT The appointment was canceled. documented in this encounterAkron [facility]08-01-2023 Evaluation + Plan note Future Scheduled Tests Radiology* MA Mamm Screen w/CAD if perf and 3D Sage 06/24/23 [facility] 01-27-2023 History of Present illness Narrative* Mio Rogers MD - 12/20/2022 3:19 PM EST AMBULATORY TELEPHONE VISIT Monika Haskins has consented to this telephone encounter. Persons Present: patient Chief Complaint/Reason: follow up AL amyloidosis. HPI: Ms. Haskins presents today for follow up of AL amyloidoma of PRODUCE SORTER. Stable neurologic symptoms. Data Reviewed: Most recent labs and imaging results. 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 Total Time Spent: 14 minutes Mio Rogers MD documented in this encounterAkron [facility]01-24-2023 History of Present illness Narrative* Mio Rogers MD - 12/17/2022 10:49 AM EST Ms. Haskins has significant gait abnormalities on her left lower extremity. She currently is wearing abrace on that side to help with support [...] is causing her current brace to be ill- fitting and there are no modifications that would make the brace appropriate for the patient. Mio Rogers MD documented in this encounterAkron Children[facility] Hospital01-23-2023 History of Present illness Narrative* Nishi Melendez RN - 12/16/2022 3:10 PM EST Radiology Service Progress Note DATE OF SERVICE: [...] Cane, Wheelchair, Crutches, etc.)? Yes, Patient High Riskfor Falls What interventions were put in place [...] DATE: December 16, 2022 TIME: 3:42 PM * RT Lorenza(R) - 12/16/2022 3:10 PM EST Radiology Service Progress Note PATIENT NAME: Monika Haskins DATE OF SERVICE: December 16, 2022 TIME: 4:30 PM PATIENT IDENTITY VERIFICATION COMPLETED USING TWO (2) IDENTIFIERS: Name and Date of confirmedby patient verbally and Name and Date of confirmed by identification band. FALL SCREENING: Has the patient had 2 falls in the last year or 1 fall with injury or currently using an Ambulatory Assistive Device (Walker, Cane, Wheelchair, Crutches, etc.)? Yes, Patient High Riskfor Falls What interventions were put in place to prevent falls during this visit? [place] Risk Wristband Applied, Offered Assistance with Transfers/Clothing, Instructed Patient to Remain Seated (Not onExam Table) Until Exam, and Increased Observations by Caregivers PATIENT GENDER DATA: Female. status: : No status: NO. PATIENT RELEVANT IMPLANT DATA REVIEWED: Yes RADIOLOGY DEPARTMENT: MR; Exam(s) Completed: Head: Routine Brain PERIPHERAL IV DATA: Site assessment: Clean,Dry and Intact, Site disposition Discontinued SIGNED BY: RT Lorenza(R) December 16, 2022 4:30 PM documented in this encounterAkron [facility]11-08-2022 Hospital Discharge instructions Patient Education 10/01/2022 11:24:21 [...] Address: [facility] [address] [place] [address]- Business (1) When: Unknown Comments:Keep scheduled appointment [facility]10-27-2022 Hospital Discharge instructions Follow Up Care 09/19/2022 13:45:23 With:ROOPA FARIAS, Oseas R, URL Address: [facility] [address] [place] [address]- When:Within 6 Month(s) Comments:F/U [facility] [place] 09-06-2022 Miscellaneous Notes* Telephone Encounter - Artemio Salter - 07/30/2022 9:35 AM EDT If pt calls back the form was received and sent to the nurses. * Telephone Encounter - Werner Moseley Asst - 07/26/2022 3:05 PM EDT Monika Haskins is calling Mio Rogers MD today to check with the office to see if a form from [facility] was received yesterday regarding her medical certification. Pt added that the form needs to be completed and returned by next week. Pt also wanted the team to know that her MRI is scheduled for 09/[address] Rogers on 09/18. Pt would like to change her visit w/ the until after her scans but will be on service. She is also willing to do a VV appt instead. Please advise. Patient has been identified by name and birthdate. Pt can be reached at: [phone] (cell) Werner Moseley Asst July 26, 2022 documented in this encounterAkron Children'S Hospital07-12-2022 Miscellaneous Notes* Telephone Encounter - Zonia Josue RN - 06/04/2022 4:15 PM EDT Spoke with patient and advised our office would happy to sign any forms, direct fax number given topatient Patient verbalized understanding Zonia Josue RN * Telephone Encounter - Di Uribe - 06/04/2022 3:34 PM EDT Pt called requesting SW information. The following was provided: Precious Hunt [phone] Patient has been identified by name and birthdate. Di Uribe June 04, 2022 * Telephone Encounter - Julianne Rodrigues - 06/04/2022 3:20 PM EDT Patient calling back to follow-up on forms being completed. I informed patient that Zonia is working on this with SW to see how they can assist. Patient requesting that Dr. Rogers call her back at [phone] * Telephone Encounter - Artemio Salter - 06/03/2022 11:12 AM EDT Spoke with patient and relayed the following [...] Laureen and Dr. Rogers always called the numbershe listed below and did this for her. She stated she will call Dr. Delarosa cell if she has to. * Telephone Encounter - Carmel Barcenas - 06/03/2022 10:45 AM EDT Monika Haskins is calling Mio Rogers MD today regarding Care Coordination ([employer] Assistance Form) Patient has been identified by name and birthdate. Requesting response back: [phone] (home) [phone] (work) [phone] (cell) Pt called requesting if our office can complete the [employer] Assistance Form for her electric bill today or as soon as possible. Pt provided: Email: [employer]//doctors--- PH: [phone] Pt Email: [email or web address] Pt also wanted to see if an order can be put in for her to get MRI, lab, and visit scheduled late August or beginning of September for her next follow up. Pt understands that Dr. Rogers's clinic getsfull quick and wanted to get this going now. Pt would like a return call to confirm all Carmel Barcenas June 03, 2022 documented in this encounterAkron Children'[facility] Hospital05-25-2022 Hospital Discharge instructions Patient Education 04/17/2022 15:02:26 [...] You may also have very sensitive muscles thatmake your bladder squeeze too soon. These symptoms [...] fried and sweet foods. General instructions Take qvho-ezo-qzxmyjb and prescription medicines only as told by your health care provider. If you were prescribed an antibiotic medicine, take it as told by your health care provider. Do notstop taking the antibiotic even if you start [...] 09/06/2010 Document Revised: 03/02/2020 Document Reviewed: 11/26/2018 [employer] Patient Education 2020 [employer]. Follow Up Care 04/15/2022 13:41:42 With:GABRIEL LUU, LIANNA Rodriguez, URL Address: [address] [place] [address] [phone] When: Unknown [facility] [employer] [place] 05-25-2022 Evaluation + Plan note Diagnostic Tests Pending * Urine Culture 04/17/22 [facility]04-12-2022 Hospital Discharge instructions Patient Education 03/05/2022 11:46:39 [...] You may also have very sensitive muscles thatmake your bladder squeeze too soon. These symptoms [...] fried and sweet foods. General instructions Take dzlr-gay-gvshdtw and prescription medicines only as told by your health care provider. If you were prescribed an antibiotic medicine, take it as told by your health care provider. Do notstop taking the antibiotic even if you start [...] 09/06/2010 Document Revised: 03/02/2020 Document Reviewed: 11/26/2018 [employer] Patient Education 2020 [employer]. Follow Up Care 02/12/2022 10:21:37 With:GABRIEL LUU, LIANNA Rodriguez, URL Address: [address] 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 Patients handicap sticker is . Can we fill out and email to her. [email or web address] Requesting response back: call on cell [phone] (home) [phone] (work) [phone] (cell) Lakshmi Moseley February 27, 2022 documented in this encounterAkron Children'[facility] Hospital03-22-2022 Hospital Discharge instructions Patient Education 02/12/2022 09:18:54 [...] [facility] [address], [place] [address]- Business (1) When:02/26/2022 09:18:40 [facility] Future App[facility]ments Appointment Date:03/07/2022 11:15:00 AM Scheduled Provider:LIANNA RIOS PA-C Location:[facility] Appointment Type:URO [facility] Future Appointments Appointment Date:09/25/2022 10:30:00 AM Scheduled Provider: Location:[facility] Appointment Type:Urology CALL PAT Appointment Date:10/01/2022 10:30:00 AM Scheduled Provider: Location:[facility] Appointment Type:Urology FT Appointment Date:10/23/2022 01:30:00 PM Scheduled Provider:Kelly Avina Location:[facility] [place] Appointment Type:URO Office Visit [facility] [place] evaluation + Plan note Future Appointments Appointment Date:10/23/2022 01:30:00 PM Scheduled Provider:Kelly Avina Location:[facility] [place] Appointment Type:URO [facility] Future Appointments Appointment Date:07/01/2023 08:30:00 AM Scheduled Provider: Location:[facility] Appointment Type:Urology CALL PAT FT Appointment Date:07/08/2023 11:00:00 AM Scheduled Provider: Location:[facility] Appointment Type:Urology FT Appointment Date:07/22/2023 01:00:00 PM Scheduled Provider:LIANNA RIOS PA-C Location:[facility] Appointment Type:URO Office Visit Diagnostic Tests Pending * PAP [id number] w/ HPV and Genotype rflx 06/24/23 Future Scheduled Tests Radiology* MA Mamm Screen w/CAD if perf and 3D Sage 06/24/23 [facility] Future Appointments Appointment Date:07/08/2023 11:00:00 AM Scheduled Provider: Location:[facility] Appointment Type:Urology FT Appointment Date:07/22/2023 01:00:00 PM Scheduled Provider:LIANNA RIOS PA-C Location:[facility] Appointment Type:URO Office Visit Future Scheduled Tests Radiology* MA Mamm Screen w/CAD if perf and 3D Sage 06/24/23 [facility] evaluation + Plan note Future Appointments Appointment Date:07/22/2023 01:00:00 PM Scheduled Provider:LIANNA RIOS PA-C Location:[facility] Appointment Type:URO Office Visit Future Scheduled Tests Radiology* MA Mamm Screen w/CAD if perf and 3D Sage 06/24/23 [facility] Future Appointments Appointment Date:09/09/2023 11:20:00 AM Scheduled Provider:Ara Michelle Location:[facility] Appointment Type: Open [facility] Future Appointments Appointment Date:05/18/2024 01:00:00 PM Scheduled Provider:DIANA Case APRN, [place] [facility] Location:[facility] Appointment Type:URO Office Visit Appointment Date:05/25/2024 10:20:00 AM Scheduled Provider:Ara Michelle [facility] Type:FM Open Appointment Date:01/13/2025 09:30:00 AM Scheduled Provider: Location:[facility] Appointment Type: Medicare Wellness Subsequent [facility] evaluation + Plan note Future Appointments Appointment Date:06/24/2024 11:20:00 AM Scheduled Provider:Ara Michelle [facility] Appointment Type:FM Open Appointment Date:01/13/2025 09:30:00 AM Scheduled Provider: Location:[facility] Appointment Type:FM Medicare Wellness Subsequent [facility] evaluation + Plan note Future Appointments Appointment Date:08/26/2024 08:20:00 AM Scheduled Provider:Ara Michelle Location:[facility] Appointment Type: Open Appointment Date:01/13/2025 09:30:00 AM Scheduled Provider: Location:[facility] Appointment Type: Medicare Wellness Subsequent Diagnostic Tests Pending * Urine Culture 07/29/24 [facility] evaluation + Plan note Future Appointments Appointment Date:02/22/2025 01:00:00 PM Scheduled Provider: Location:[facility] Appointment Type:URO Nurse Visit Appointment Date:02/25/2025 02:00:00 PM Scheduled Provider: Location:[facility] Appointment Type:Urology CALL PAT FT Appointment Date:03/01/2025 09:45:00 AM Scheduled Provider: Location:[facility] Appointment Type:Urology FT Appointment Date:03/08/2025 10:20:00 AM Scheduled Provider:Ara Michelle [facility] Appointment Type:FM Open Appointment Date:03/21/2025 01:00:00 PM Scheduled Provider:LIANNA RIOS PA-C [facility] + Plan note Future Appointments Appointment Date:04/11/2025 01:00:00 PM Scheduled Provider:LIANNA RIOS PA-C [facility] Type:URO Acute Visit Appointment Date:04/20/2025 11:00:00 AM Scheduled Provider:Ara Michelle Location:[facility] Appointment Type:[facility] evaluation + Plan note Future Appointments Appointment Date:05/16/2025 03:00:00 PM Scheduled Provider:LIANNA RIOS PA-C [facility] Type:URO Procedure 15 min Appointment Date:05/30/2025 09:40:00 AM Scheduled Provider:Ara Michelle Location:[facility] Appointment Type:[facility] Evaluation + Plan note Future Appointments Appointment Date:05/02/2025 12:00:00 PM Scheduled Provider: Location:[facility] Appointment Type:Urology CALL PAT FT Appointment Date:05/03/2025 02:00:00 PM Scheduled Provider: Location:[facility] Appointment Type:Urology FT Appointment Date:05/16/2025 03:00:00 PM Scheduled Provider:LIANNA RIOS PA-C Location:[facility] Appointment Type:URO Procedure 15 min Appointment Date:05/30/2025 09:40:00 AM Scheduled Provider:Ara Michelle Location:[facility] Appointment Type:[facility] evaluation + Plan note Future Appointments Appointment Date:05/23/2025 12:00:00 PM Scheduled Provider:LIANNA RIOS PA-C [facility] Type:URO Office Visit Appointment Date:05/30/2025 09:40:00 AM Scheduled Provider:Ara Michelle Location:[facility] Appointment Type:[facility] evaluation + Plan note Future Appointments Appointment Date:05/30/2025 09:40:00 AM Scheduled Provider:Ara Michelle Location:[facility] Appointment Type:[facility] Evaluation note* Diagnosis Brain tumor (HCC) Neoplasm of unspecified nature of brain documented [facility]* Diagnosis AL amyloidosis (HCC)- Primary Other amyloidosis documented [facility] this [facility]* Diagnosis AL amyloidosis (HCC) Other amyloidosis Brain tumor (HCC) Neoplasm of unspecified nature of brain documented [facility]* Diagnosis AL amyloidosis (HCC)- Primary Other amyloidosis Brain tumor (HCC) Neoplasm of unspecified nature of brain [facility]* Diagnosis APPOINTMENT CANCELLED- Primary documented [facility]* Diagnosis 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 Brain tumor (HCC) Neoplasm of unspecified nature of brain documented [facility]* Diagnosis 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 [facility]* Diagnosis Brain tumor (HCC) Neoplasm of unspecified nature of brain documented in this [facility] Diagnosis Brain tumor (HCC) Neoplasm of unspecified nature of brain AL amyloidosis (HCC) Other amyloidosis documented in this [facility] Diagnosis AL amyloidosis (HCC)- Primary Other amyloidosis Brain tumor (HCC) Neoplasm of unspecified nature of brain documented in this [facility]* Diagnosis 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 Brain tumor (HCC) Neoplasm of unspecified nature of brain documented in this [facility]* Diagnosis 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 [facility] this [facility]* Diagnosis 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 Brain tumor (HCC) Neoplasm of unspecified nature of brain documented in this [facility]* Diagnosis Post-menopausal bleeding Postmenopausal bleeding Complex ovarian cyst Uterine mass Other specified symptom associated with female genital organs [facility] noteNo assessment information availableBl[facility] Work Phone: Evaluation note* Diagnosis Postoperative follow-up Follow-up examination, following unspecified surgery documented in this encounter [facility]* Diagnosis 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 Brain tumor (HCC) 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 [facility] Diagnosis Ear fullness, left- Primary 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 BPPV (benign paroxysmal positional vertigo), left ETD (Eustachian tube dysfunction), bilateral documented in this encounter [facility] HealthcareEvaluation note* Diagnosis Plugged feeling in ear, left- Primary Benign paroxysmal positional vertigo, left documented in this encounter [facility] HealthcareHospital course Narrative No data available for this section [facility] No data available for this section [facility] No data available for this section [facility] [employer] [place] Summary Purpose Family History No Family History Records Found No data available for this section No data available for this section No data available for this section No data available for this section No Family History Records FoundNo Family History Records Found No data available [...] Advanced Directives Records Found Reason for Referral SpecialtyDiagnoses / ProceduresReferred By ContactReferred To ContactMR IMAGING Diagnoses Brain tumor (HCC) Procedures MRI BRAIN WO/W IVCON MRI BRAIN BRAIN STEM W/O W/CONTRAST MATERIAL Mio Rogers MD [address] [place] [address] [place] [address] Referral IDStatusReasonStart DateExpiration DateVisits RequestedVisits [id number] Review Auto-Generated Referral 5/24/[id number] / ProceduresReferred By ContactReferred To ContactMR IMAGING Diagnoses Brain tumor (HCC) AL amyloidosis (HCC) Procedures MRI BRAIN WO/W IVCON MRI BRAIN BRAIN STEM W/O W/CONTRAST MATERIAL Mio Rogers MD [address] [place] [address] Mr Imaging Referral IDStatusReasonStart DateExpiration DateVisits RequestedVisits [id number] Review Auto-Generated Referral [id number] / ProceduresReferred By ContactReferred To ContactMR IMAGING Diagnoses AL amyloidosis (HCC) Brain tumor (HCC) Procedures MRI BRAIN WO/W IVCON MRI BRAIN BRAIN STEM W/O W/CONTRAST MATERIAL Mansi Gallagher APRN.MANAGER SALES [address] [place] [address] Mr Imaging Referral IDStatusReasonStart DateExpiration DateVisits RequestedVisits [id number] Auto-Generated Referral Additional Source Comments INFORMATION SOURCE (unrecogn ized section and content) DATE CREATED AUTHOR 12/20/2019 [facility] DATE CREATED AUTHOR AUTHOR'S ORGANIZ ATION 08/02/2024 [facility] DATE CREATED AUTHOR AUTHOR'S ORGANIZ ATION 01/04/2025 [facility] DATE CREATED AUTHOR AUTHOR'S ORGANIZ ATION 08/11/2025 [facility] DATE CREATED AUTHOR AUTHOR'S ORGANIZ ATION 09/04/2025 [facility] DATE CREATED AUTHOR AUTHOR'S ORGANIZ ATION 09/24/2025 [facility] DATE CREATED AUTHOR AUTHOR'S ORGANIZ ATION 10/01/2025 [facility] EPIC Source Comments (unrecognize d section and content) In the event this informatio n is protected by the Federal Confidentiality of Alcohol and Drug Abuse Patient Records regulations: The Federal rules restrict any use of the information to criminally investigate or prosecute any alcohol or drug abuse patient.[facility] Hospital[facility] the event this information is protected by the Federal Confidentiality of Alcohol and Drug Abuse Patient Records regulations: The Federal rules restrict any use of the information to criminally investigate or prosecute any alcohol or drug abuse patient.[facility] HospitalIn the event this information is protected by the Federal Confidentiality of Alcohol and Drug Abuse Patient Records regulations: The Federal rules restrict any use of the information to criminally investigate or prosecute any alcohol or drug abuse patient.[facility] HospitalIn the event this information is protected by the Federal Confidentiality of Alcohol and Drug Abuse Patient Records regulations: The Federal rules restrict any use of the information to criminally investigate or prosecute any alcohol or drug abuse patient.[facility] HospitalIn the event this information is protected by the Federal Confidentiality of Alcohol and Drug Abuse Patient Records regulations: The Federal rules restrict any use of the information to criminally investigate or prosecute any alcohol or drug abuse patient.[facility] HospitalIn the event this information is protected by the Federal Confidentiality of Alcohol and Drug Abuse Patient Records regulations: The Federal rules restrict any use of the information to criminally investigate or prosecute any alcohol or drug abuse patient.[facility] HospitalIn the event this information is protected by the Federal Confidentiality of Alcohol and Drug Abuse Patient Records regulations: The Federal rules restrict any use of the information to criminally investigate or prosecute any alcohol or drug abuse patient.[facility] HospitalIn the event this information is protected by the Federal Confidentiality of Alcohol and Drug Abuse Patient Records regulations: The Federal rules restrict any use of the information to criminally investigate or prosecute any alcohol or drug abuse patient.[facility] HospitalIn the event this information is protected by the Federal Confidentiality of Alcohol and Drug Abuse Patient Records regulations: The Federal rules restrict any use of the information to criminally investigate or prosecute any alcohol or drug abuse patient.[facility] HospitalIn the event this information is protected by the Federal Confidentiality of Alcohol and Drug Abuse Patient Records regulations: The Federal rules restrict any use of the information to criminally investigate or prosecute any alcohol or drug abuse patient.[facility] HospitalIn the event this information is protected by the Federal Confidentiality of Alcohol and Drug Abuse Patient Records regulations: The Federal rules restrict any use of the information to criminally investigate or prosecute any alcohol or drug abuse patient.[facility] HospitalIn the event this information is protected by the Federal Confidentiality of Alcohol and Drug Abuse Patient Records regulations: The Federal rules restrict any use of the information to criminally investigate or prosecute any alcohol or drug abuse patient.[facility] HospitalIn the event this information is protected by the Federal Confidentiality of Alcohol and Drug Abuse Patient Records regulations: The Federal rules restrict any use of the information to criminally investigate or prosecute any alcohol or drug abuse patient.[facility] HospitalIn the event this information is protected by the Federal Confidentiality of Alcohol and Drug Abuse Patient Records regulations: The Federal rules restrict any use of the information to criminally investigate or prosecute any alcohol or drug abuse patient.[facility] HospitalIn the event this information is protected by the Federal Confidentiality of Alcohol and Drug Abuse Patient Records regulations: The Federal rules restrict any use of the information to criminally investigate or prosecute any alcohol or drug abuse patient.[facility] HospitalIn the event this information is protected by the Federal Confidentiality of Alcohol and Drug Abuse Patient Records regulations: The Federal rules restrict any use of the information to criminally investigate or prosecute any alcohol or drug abuse patient.[facility] HospitalIn the event this information is protected by the Federal Confidentiality of Alcohol and Drug Abuse Patient Records regulations: The Federal rules restrict any use of the information to criminally investigate or prosecute any alcohol or drug abuse patient.[facility] HospitalIn the event this information is protected by the Federal Confidentiality of Alcohol and Drug Abuse Patient Records regulations: The Federal rules restrict any use of the information to criminally investigate or prosecute any alcohol or drug abuse patient.[facility] HospitalIn the event this information is protected by the Federal Confidentiality of Alcohol and Drug Abuse Patient Records regulations: The Federal rules restrict any use of the information to criminally investigate or prosecute any alcohol or drug abuse patient.[facility] HospitalIn the event this information is protected by the Federal Confidentiality of Alcohol and Drug Abuse Patient Records regulations: The Federal rules restrict any use of the information to criminally investigate or prosecute any alcohol or drug abuse patient.[facility] HospitalIn the event this information is protected by the Federal Confidentiality of Alcohol and Drug Abuse Patient Records regulations: The Federal rules restrict any use of the information to criminally investigate or prosecute any alcohol or drug abuse patient.[facility] HospitalIn the event this information is protected by the Federal Confidentiality of Alcohol and Drug Abuse Patient Records regulations: The Federal rules restrict any use of the information to criminally investigate or prosecute any alcohol or drug abuse patient.[facility] HospitalIn the event this information is protected by the Federal Confidentiality of Alcohol and Drug Abuse Patient Records regulations: The Federal rules restrict any use of the information to criminally investigate or prosecute any alcohol or drug abuse patient.[facility] HospitalIn the event this information is protected by the Federal Confidentiality of Alcohol and Drug Abuse Patient Records regulations: The Federal rules restrict any use of the information to criminally investigate or prosecute any alcohol or drug abuse patient.[facility] HospitalIn the event this information is protected by the Federal Confidentiality of Alcohol and Drug Abuse Patient Records regulations: The Federal rules restrict any use of the information to criminally investigate or prosecute any alcohol or drug abuse patient.[facility] HospitalIn the event this information is protected by the Federal Confidentiality of Alcohol and Drug Abuse Patient Records regulations: The Federal rules restrict any use of the information to criminally investigate or prosecute any alcohol or drug abuse patient.[facility] HospitalIn the event this information is protected by the Federal Confidentiality of Alcohol and Drug Abuse Patient Records regulations: The Federal rules restrict any use of the information to criminally investigate or prosecute any alcohol or drug abuse patient.[facility] HospitalIn the event this information is protected by the Federal Confidentiality of Alcohol and Drug Abuse Patient Records regulations: The Federal rules restrict any use of the information to criminally investigate or prosecute any alcohol or drug abuse patient.[facility] Reason for Visit (unrecogniz ed section and content) ReasonCommentsSpasticitySpecialtyDiagnoses / ProceduresReferred By Contact Referred To ContactREHAB AND SPORTS THERAPY INS Diagnoses Spasticity due to old stroke Procedures CONSULT TO PHYSICAL MEDICINE AND REHABILITATION OFFICE/OUTPATIENT [facility] 60-74 MINUTES Mio Rogers MD [address] [place] [address] [facility] [place] [address] [place] [address] Referral IDStatusReasonStart DateExpiration DateVisits RequestedVisits [id number] Review PCP Requested Referral Auto-Generated Referral /[id number] Coordinator - OtherhandicapReasonComments Care CoordinationFirst Energy Assistance FormReasonCommentsCare Coordinator - OtherQuestion re: apptsReasonOnset DateCommentsRefill Elzcjuv7909/11/2022 ReasonOnset DateCommentsRefill Fhzkxzg4112/12/2022ReasonCommentsRadiology MRI SpecialtyDiagnoses / ProceduresReferred By ContactReferred To ContactMR IMAGING Diagnoses AL amyloidosis (HCC) Brain tumor (HCC) Procedures MRI BRAIN WO/W IVCON MRI BRAIN BRAIN STEM W/O W/CONTRAST MATERIAL Mansi Gallagher, DELIVERY COORDINATOR.MANAGER SALES [address] [place] [address] Mr Imaging Referral IDStatusReasonStart DateExpiration DateVisits RequestedVisits [id number] Auto-Generated Referral [id number]o PatientReasonCommentsAppointment CancelledReasonOnset DateCommentsRefill Kypqejo0810/24/2023ReasonOnset Date CommentsRefill Nrqebil50/24/2024SpecialtyDiagnoses / ProceduresReferred By ContactReferred To ContactMR IMAGING Diagnoses Brain tumor (HCC) AL amyloidosis (HCC) Procedures MRI BRAIN WO/W IVCON MRI BRAIN BRAIN STEM W/O W/CONTRAST MATERIAL Mio Rogers MD [address] [place] [address] Mr Imaging [place] [address] Referral IDStatusReasonStart DateExpiration DateVisits RequestedVisits [id number] Auto-Generated Referral 1Referral IDStatusReasonStart DateExpiration DateVisits RequestedVisits [id number] Auto-Generated Referral [id number] Coordinator - Ilan Mcgowan CommentsSpasticityBotulinum Toxin InjectionsSpecialtyDiagnoses / Procedures Referred By ContactReferred To ContactNeurology / PHYSICAL MEDICINE AND REHAB Diagnoses 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 Procedures BOTULINUM TOXIN A PER 1 UNIT INITIAL J0585 - BOTULINUM TOXIN A UP TO 400 UNITS EVERY 90 DAYS x 1 YEAR FOR SPASTICITY 66207 - CHEMODENERV 1 EXTREMITY 1-4 33462 - CHEMODENERV ADDL EXTREM 1-[place] [address] [place] [address] Patrick Bustamante MD [address] [place] [address] Referral IDStatusReasonStart DateExpiration DateVisits RequestedVisits [id number]/20/202312/31/[id number] / ProceduresReferred By ContactReferred To ContactNeurology / PHYSICAL MEDICINE AND REHAB Diagnoses 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) Procedures BOTULINUM TOXIN A PER 1 UNIT RENEWAL J0585 - BOTULINUM TOXIN A UP TO 400 UNITS EVERY 90 DAYS x 1 YEAR FOR SPASTICITY 54691 - CHEMODENERV 1 EXTREMITY 1-4 16381 - CHEMODENERV ADDL EXTREM 1-4 LUCIANA 66518 - CHEMODENERV 1 EXTREM 5/> MUS 08980 EACH ADDITIONAL EXTREMITY, 5 [place] [address] [place] [address] Patrick Bustamante MD [address] [place] [address] Referral IDStatusReasonStart DateExpiration DateVisits RequestedVisits [id number]/22/202512/31/27628625BxesbjTneefnjzqffn menopausal bleedingReasonCommentsPost-op VisitReasonCommentsSpasticityBotulinum Toxin InjectionsSpecialtyDiagnoses / ProceduresReferred By ContactReferred To Contact Neurology / PHYSICAL MEDICINE AND REHAB Diagnoses 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) Procedures BOTULINUM TOXIN A PER 1 UNIT RENEWAL J0585 - BOTULINUM TOXIN A UP TO 400 UNITS EVERY 90 DAYS x 1 YEAR FOR SPASTICITY 09454 - CHEMODENERV 1 EXTREMITY 1-4 30091 - CHEMODENERV ADDL EXTREM 1-4 EA [address]5401 - CHEMODENERV 1 EXTREM 5/> MUS 55792 EACH ADDITIONAL EXTREMITY, 5 [place] [address] [place] [address] Phone: tel: Patrick Bustamante MD [address] [place] [address] Phone: tel: fax: ReasonCommentsEar ProblemChronic otitis media Care Teams (unrecognized sec tion and content) Team MemberRelationshipSpecialtyStart DateEnd Date Erica Mercedes PCP - GeneralFamily Qrvcvwhk19/13/12Team MemberRelationshipSpecialtyStart Date End Date Erica Mercedes PCP - GeneralFamily Cntcbrja87/13/12Team MemberRelationshipSpecialtyStart Date End Date Erica Mercedes PCP - GeneralFamily Ctubiwwa50/13/12Team MemberRelationshipSpecialtyStart Date End Date Erica Mercedes PCP - GeneralFamily Behsukix95/13/12Team MemberRelationshipSpecialtyStart Date End Date Erica Mercedes PCP - GeneralFamily Bicotfgg50/13/12Team MemberRelationshipSpecialtyStart Date End Date Erica Mercedes PCP - GeneralFamily Ftybgtdm02/13/12Team MemberRelationshipSpecialtyStart Date End Date Erica Mercedes PCP - GeneralFamily Qodtrpld72/13/12Team MemberRelationshipSpecialtyStart Date End Date Erica Mercedes PCP - GeneralFamily Tdkxtxbu87/13/12Team MemberRelationshipSpecialtyStart Date End Date Erica Mercedes PCP - GeneralFamily Eowlxjjb12/13/12Team MemberRelationshipSpecialtyStart Date End Date Erica Mercedes PCP - GeneralFamily Mdqrwxju60/13/12Team MemberRelationshipSpecialtyStart Date End Date Erica Mercedes PCP - GeneralFamily Qtljpyya52/13/12 [place] [address] [place] [address] Specialty Care CoordinatorHematology/Oncology07/25/23 MemberRelationship SpecialtyStart DateEnd Date Erica Mercedes PCP - Generalmily Ekhnqkzw16/13/12Team MemberRelationshipSpecialtyStart Date End Erica Mercedes PCP - Generalmily Nvrwhkvx53/13/12 [place] [address] [place] [address] Specialty Care CoordinatorHematology/Oncology07/25/23 MemberRelationship SpecialtyStart DateEnd Date Erica Mercedes PCP - [facility] Gzmxysoa83/13/12 [place] [address] [place] [address] Specialty Care CoordinatorHematology/Oncology07/25/23Te MemberRelationship SpecialtyStart DateEnd Erica Mercedes PCP - [facility] Exulgxau07/13/12 Mitzy Brush, MELVIN [id number] [place] [address] Specialty Care CoordinatorHematology/Oncology07/25/23Team MemberRelationship SpecialtyStart DateEnd Erica Mercedes PCP - [facility] Yocwtzqm07/13/12 [place] [address] [place] [id number] Specialty Care CoordinatorHematology/Oncology07/25/23Team MemberRelationship SpecialtyStart DateEnd Date Erica Mercedes PCP - GeneralFamily Owlcemxn83/13/12 [place] [address] [place] [address] Specialty Care CoordinatorHematology/Oncology07/25/23Team MemberRelationship SpecialtyStart DateEnd Date Erica Mercedes PCP - Generalmily Jsbczjxb65/13/12 [place] [address] [place] [address] Specialty Care CoordinatorHematology/Oncology07/25/23Te MemberRelationship SpecialtyStart DateEnd [facility] Erica Mercedes PCP - Generalmily Uchlkyhb79/13/12 [place] [address] [place] [address] Specialty Care CoordinatorHematology/Oncology07/25/23 MemberRelationship SpecialtyStart DateEnd [facility] Erica Mercedes PCP - Generalmily Nqlvzaon22/13/12 [place] [address] [place] [address] Specialty Care CoordinatorHematology/Oncology07/25/23Te MemberRelationship SpecialtyStart DateEnd Date Erica Mercedes PCP - [facility] Ocjdzlku99/13/12 [place] [address] [place] [address] Specialty Care CoordinatorHematology/Oncology07/25/23Team MemberRelationship SpecialtyStart DateEnd Date Erica Mercedes PCP - GeneralFamily Xebgupyf38/13/12 [place] [address] [place] [address] Specialty Care CoordinatorHematology/Oncology07/25/23Team MemberRelationship SpecialtyStart DateEnd Date Erica Mercedes PCP - Generalmily Mkjzvvxq43/13/12 [place] [address] [place] [address] Specialty Care CoordinatorHematology/Oncology07/25/23 Team Status: Inactive Member Role Status Dates Carter Agosto DO Attending Provider Active Start : December 31, 2024 End: December 31, 2024Team MemberRelationshipSpecialtyStart DateEnd Date [facility]a [facility] Lorasyrj03/13/12 [place] [address] [place] [address] Specialty Care CoordinatorHematology/Oncology07/25/23Team MemberRelationship SpecialtyStart DateEnd Date Erica Mercedes PCP - Generalmily Kywkzydo79/13/12 [place] [address] [place] [address] Specialty Care CoordinatorHematology/Oncology07/25/23Team MemberRelationship SpecialtyStart DateEnd Date Ara Vanegas NP [address] [place] [address] Referring [facility] HospitalFamily Snmusnjf43/8/25Team MemberRelationshipSpecialtyStart DateEnd Date Ara Vanegas NP [address] [place] [address] Referring [facility]icianAd[facility]08/31/25Team MemberRelationshipSpecialtyStart DateEnd Date Ara Vanegas NP [address] [place] [address] Referring PhysicianAdventhealth Gordon08/31/25Team MemberRelationshipSpecialtyStart DateEnd Date Ara Vanegas NP [address] [place] [phone] Referring PhysicianAdventhealth Gordon08/31/25Team MemberRelationshipSpecialtyStart DateEnd Date Ara Vanegas NP [address] [place], [place] [id number] Referring [facility]08/31/25 Goals (unrecognized section and content) Goals may [...] BE BASED ON THE PRIMARY CLINICAL RECORDS. [employer] [facility]. provides no warranty or guarantee of the accuracy or completeness of information in this document.
--- NOTE | 2025-10-04 15:08 | US_ITS ---
[place] [id number] Patient Name: MONIKA RAMON MRN: [id number] date: 1970 Sex: F Assigned Patient Location: US Current Patient Location: Accession/Order Number: [id number] Exam Date: 10/04/2025 15:09 Report Date: 10/05/2025 08:04 At the request of: MOLINA SALINAS DO Procedure: US extremity nonvascular RT LIMITED ULTRASOUND - right axilla CLINICAL DATA: Right axillary lump for the past week. COMPARISON: None Real-time ultrasound evaluation of the right axilla was performed. Within the subcutaneous fat at the site of palpable concern, there is an ill-defined 4 mm heterogeneous area. Appearance is nonspecific. It does not resemble a lymph node. Sebaceous cyst is in the differential. No other cystic or solid masses are identified. US/US extremity nonvascular RT IMPRESSION: TINY NONSPECIFIC ILL-DEFINED AREA WITHIN THE SUBCUTANEOUS FAT AT THE SITE OF PALPABLE CONCERN, DESCRIBED Impression dictated by: Camelia Victor M.D. 10/05/2025 8:04 AM Dictation Location: [place] [address] Electronically authenticated by: [id number] Y Date: 10/05/2025 08:04
[2025-10-04 15:54] LABS: Free T3 2.29 pg/mL (2.18-3.98); Glucose 109 mg/dL (74-106); Thyroid Stimulating Hormone 1.614 uIU/mL (0.358-3.740)
[2025-10-04 16:06] LABS: Ferritin 143.0 ng/mL (8.0-252.0)
[2025-10-05 04:07] LABS: Sex Horm Binding Glob, Serum 63.0 nmol/L (17.3-125.0)
[2025-10-06 13:09] LABS: Calcitriol(1,25 di-OH Vit D) 39.4 pg/mL (24.8-81.5)
== END 2025-10-04 14:26 | disposition home or self-care (01) ==
LOC: US 14:28
PROVIDERS: PCP Nurse Practitioner; Visit Provider Obstetrics & Gynecology
DX: E34.9 Endocrine disorder, unspecified (principal); R23.2 Flushing; R45.86 Emotional lability; M79.89 Other specified soft tissue disorders
CPT/HCPCS: 36415; 76882; 82530; 82627; 82652; 82670; 82679; 82728; 82947; 83036; 83525; 84144; 84260; 84270; 84402; 84403; 84432; 84436; 84439; 84443; 84481; 84482; 84681; 86376; 86800

== ENCOUNTER 2025-10-07 10:52 | Outpatient (OUT) | payer MEDICARE, SELFPAY ==
--- OUTSIDE RECORDS SUMMARY | 2025-09-29 10:10 | XMS_ITS | Encounter Summary ---
Author Organization [facility] Address [address] [place] [address] Care Team Providers Care Compliance Coordinator Name Role Phone Ara Vanegas NP Unavailable Reason for Visit * ReasonCommentsDiscuss HRT Encounter Details DateTypeDepartmentCare Team (Latest Contact Info)Hjjlyltriwk89/06/2025 10:10 AM ESTOffice Visit [facility] [address] [facility] [facility] [place] [phone] Carter Agosto DO [address] [facility] [address] [place], [facility]11 Hormonal disorder; Hot flashes; Mood changes; Right axillary swelling; Encounter for screening mammogram for malignant neoplasm of breast Social History Tobacco UseTypesPacks/DayYears UsedDateSmoking Tobacco: NeverAlcohol UseStandard Drinks/WeekCommentsNever0 (1 standard drink = 0.6 oz pure alcohol) CommentsNoSex and Gender InformationValueDate RecordedSex Assigned at BirthNot on fileLegal MnkPjqadu08/15/2023 6:51 PM EDTGender IdentityNot on fileSexual OrientationNot on filedocumented as of this encounter Last Filed Vital Signs Vital SignReadingTime TakenCommentsBlood Fwmylndg336/7409/29/2025 10:28 AM EST Pulse--Temperature--Respiratory Rate--Oxygen Saturation--Inhaled Oxygen Concentration--Jrqsov798 kg (228 lb 8 oz)09/29/2025 10:28 AM ESTHeight--Body Mass Index31.8710 8:51 AM EDTdocumented in this encounter Progress Notes * Margarita Celis, COMMUNITY FACILITATOR - 09/29/2025 10:10 AM EST Reason for Appointment: Patient ID: Taylor Haskins is a 55 y.o. female who presents for Discuss HRT Patient presents today for Consult appointment. MEDICATIONS Current Outpatient Medications Medication Instructions azithromycin (Zithromax) 250 MG tablet TAKE 2 TABLETS BY MOUTH TODAY, THEN TAKE 1 TABLET DAILY FOR 4 DAYS DIRECTED baclofen (LIORESAL) 10 mg, Daily RT ciprofloxacin-dexAMETHasone (CiproDEX) otic suspension PLACE 10 DROPS INTO AFFECTED EAR(S) TWICE A DAY FOR 7 DAYS erythromycin (Romycin) 5 MG/GM ophthalmic ointment APPLY TO AFFECTED EYE BEFORE BEDTIME EACH DAY Estrace 1 MG tablet gabapentin (Neurontin) 300 MG capsule See Instructions, TAKE 1 CAPSULE BY MOUTH TWICE A DAY, # 60 cap(s), Refills(s) 0, Pharmacy: [facility] STORE [id number], 180, cm, 03/22/25 13:45:00 EDT, Height/Length Dosing, 100.4, kg, 03/22/25 13:45:00 EDT, Weight Dosing Gemtesa 75 mg onabotulinumtoxinA (Botox) 100 units injection Once phentermine 37.5 mg predniSONE (Deltasone) 10 MG tablet TAKE 3 TABS DAILY X3 DAYS, 2 TABS DAILY X3 DAYS, 1 TAB DAILY X3DAYS DIRECTED sertraline (ZOLOFT) 25 mg valACYclovir (VALTREX) 1 g ALLERGIES Allergies Allergen Reactions Bee Venom Swelling Morphine Hives and Rash Pt had a morphine injection and broke out in hives, with itching PROBLEMS Active Ambulatory Problems Diagnosis Date Noted Abnormality of gait 02/17/2013 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 Bronchitis 09/05/2025 Cellulitis 07/27/2013 Breast cancer screening 09/05/2025 Congestion of nasal sinus 09/05/2025 Cough 09/05/2025 Dental infection 08/12/2016 Depressive disorder 09/05/2025 Ear pain, left 09/05/2025 Elevated WBCs 09/05/2025 Dysuria 09/05/2025 Excessive dietary caloric intake 09/05/2025 Fatigue 10/02/2017 Fluid level behind tympanic membrane of left ear 09/05/2025 History of brain disorder 09/05/2025 History of gestational diabetes 09/05/2025 Insulin resistance 09/05/2025 Intracranial tumor (HCC) 09/05/2025 Lack of energy 06/22/2014 Chronic otitis media 09/05/2025 Lower urinary tract infectious disease 11/30/2014 Microhematuria 09/05/2025 Moderate episode of recurrent major depressive disorder (HCC) 09/05/2025 Nausea and vomiting 11/25/2013 Non-smoker 09/05/2025 Adult BMI 33.0-33.9 kg/sq m 09/05/2025 Oligohydramnios ([facility]) 09/05/2025 Overactive bladder 09/05/2025 Placental insufficiency ([facility]) 09/05/2025 Postinfective urethral stricture in female 09/05/2025 Recurrent oral herpes simplex infection 09/05/2025 Skin infection 09/05/2025 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) 09/05/2025 Staph infection 09/05/2025 Thrush 12/10/2012 URI (upper respiratory infection) 03/15/2013 Uterine leiomyoma 09/05/2025 UTI symptoms 09/05/2025 Resolved Ambulatory Problems Diagnosis Date Noted No Resolved Ambulatory Problems Past Medical History: Diagnosis Date Cerebral tumor (HCC) History of being hospitalized 2011 Irregular menses 12/15 Menopause Menopause ovarian failure 08/2015 HISTORY PAST MEDICAL HISTORY SOCIAL HISTORY Past Medical History: Diagnosis Date Amyloidosis (HCC) Reis's palsy 01/25/2025 Cerebral tumor (HCC) History of being hospitalized 2011 infection from c- section Irregular menses 12/15 Menopause Menopause ovarian failure 08/2015 Social History Tobacco Use Smoking status: Never Smokeless tobacco: Not on file Substance Use Topics Alcohol use: Never Drug use: Never FAMILY HISTORY Family History Problem Relation Name Age of Onset Heart failure Father tomeka Diabetes Maternal Grandfather aniceto SURGICAL HISTORY Past Surgical History: Procedure Laterality Date BRAIN BIOPSY 2012 SECTION, LOW TRANSVERSE [address] GUIDED IMAGING FOR STEREOTACTIC LOCALIZATION 11/25/2012 CT GUIDED IMAGING FOR STEREOTACTIC LOCALIZATION OTHER SURGICAL HISTORY mass in uterus 2024 REVIEW OF SYSTEMS Review of Systems: Review of Systems Constitutional: Negative. HENT: Negative. Eyes: Negative. Respiratory: Negative. Cardiovascular: Negative. Gastrointestinal: Negative. Genitourinary: Negative. Positive for vaginal dryness. Musculoskeletal: Negative. Skin: Negative. Neurological: Negative. All [...] No edema. Left lower leg: No edema. Neurological: Mental Status: She is alert and oriented to person, place, and time. Skin: General: Skin is warm and dry. Psychiatric: Mood and Affect: Mood normal. Behavior: Behavior normal. Vitals and nursing note reviewed. Exam conducted with a acupuncture physician present. Vitals: Estimated body mass index is 31.87 kg/m?? as calculated from the following: Height as of 09/06/25: 5' 11 . Weight as of this encounter: 228 lb 8 oz. BP: 128/74 No LMP recorded. (Menstrual status: No Periods). Assessment/Plan ICD-10-CM 1. Hormonal disorder E34.9 Patient presents to office to discuss hormone replacement therapy. 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 Patient has been dealing with this and seeing different specialist. Patientvoiced that she was on Estradiol for 10 years and went off that. Patient voiced that she is now on Zoloft and she feels as though it is hormonal. Patient has tried vaginal cream and that has helped with vaginal dryness and cut down on UTI's as well. Discussed with patient ordering labs. Then we cantouch base with getting medication that is specific to her. Patient to stop Zoloft and start Effexor 37.5mg daily and return to office in 4 weeks. Patient also voiced that she found a lump in Right Axillary area. Ordered patient to have mammogram and axillary US. Sent Keflex to pharmacy. Documented by Margarita Celis LPN on behalf of: Carter Agosto DO documented in this encounter Plan of Treatment DateTypeDepartmentCare Team (Latest Contact Info)Cnwnzvnafhz56/04/2025 11:10 AM ESTOffice Visit [facility] [address] [place] [address] Carter Agosto DO [address] [facility] [place] [address] NameTypePriorityAssociated DiagnosesOrder ScheduleEstradiolLabRoutine Hormonal disorder Hot flashes Mood changes Ordered: 09/29/2025EstroneLabRoutine Hormonal disorder Hot flashes Mood changes Ordered: 09/29/2025ortisol, freeLabRoutine Hormonal disorder Hot flashes Mood changes Expected: 09/29/2025 (Approximate), Expires: 09/29/2026DHEA-sulfateLabRoutine Hormonal disorder Hot flashes Mood changes Ordered: 09/29/2025Sex hormone binding globulinLabRoutine Hormonal disorder Hot flashes Mood changes Ordered: 09/29/2025Insulin, totalLabRoutine Hormonal disorder Hot flashes Mood changes Expected: 09/29/2025 (Approximate), Expires: 09/29/2026Serotonin serumLabRoutine Hormonal disorder Hot flashes Mood changes Expected: 09/29/2025 (Approximate), Expires: 09/29/2026TSHLabRoutine Hormonal disorder Hot flashes Mood changes Ordered: 09/29/2025T4, freeLabRoutine Hormonal disorder Hot flashes Mood changes Ordered: 09/29/2025T3, reverseLabRoutine Hormonal disorder Hot flashes Mood changes Ordered: 09/29/2025ProgesteroneLabRoutine Hormonal disorder Hot flashes Mood changes Ordered: 09/29/2025Vitamin D 1,25 dihydroxyLabRoutine Hormonal disorder Hot flashes Mood changes Ordered: 09/29/2025FerritinLabRoutine Hormonal disorder Hot flashes Mood changes Ordered: 09/29/2025T3, freeLabRoutine Hormonal disorder Hot flashes Mood changes Ordered: 09/29/2025ThyroglobulinLabRoutine Hormonal disorder Hot flashes Mood changes Expected: 09/29/2025 (Approximate), Expires: 09/29/2026Thyroglobulin AntibodyLab Routine Hormonal disorder Hot flashes Mood changes Expected: 09/29/2025 (Approximate), Expires: 09/29/2026Thyroid peroxidase antibodyLabRoutine Hormonal disorder Hot flashes Mood changes Ordered: 09/29/20256929U2UyiOcrftve Hormonal disorder Hot flashes Mood changes Expected: 09/29/2025 (Approximate), Expires: 09/29/2026TESTOSTERONE, FREELab Routine Hormonal disorder Hot flashes Mood changes Ordered: 09/29/2025Testosterone, free, totalLabRoutine Hormonal disorder Hot flashes Mood changes Ordered: 09/29/2025Hemoglobin K5mMlsMfcftrk Hormonal disorder Hot flashes Mood changes Ordered: 09/29/2025Glucose, randomLabRoutine Hormonal disorder Hot flashes Mood changes Expected: 09/29/2025 (Approximate), Expires: 09/29/2026-peptideLabRoutine Hormonal disorder Hot flashes Mood changes Expected: 09/29/2025 (Approximate), Expires: 09/29/2026ilateral screening mammogramImagingRoutine Right axillary swelling Encounter for screening mammogram for malignant neoplasm of breast Expected: 09/29/2025 (Approximate), Expires: 11/29/2026US Soft Tissue Palpable MassImagingRoutine Right axillary swelling Expected: 09/29/2025, Expires: 09/29/2026documented as of this encounter Visit Diagnoses Diagnosis Hormonal disorder Hot flashes Mood changes Unspecified episodic mood disorder Right axillary swelling Encounter for screening mammogram for malignant neoplasm of breast documented in this encounter Care Teams Team MemberRelationshipSpecialtyStart DateEnd Date Ara Vanegas NP [address] [place] [address] Referring PhysicianFamily Pdkzkvhy74/8/25documented as of this encounter
--- OUTSIDE RECORDS SUMMARY | 2025-10-06 10:00 | XMS_ITS | Encounter Summary ---
Author Organization [facility] Address [address] [place] [address] Care Team Providers Care Material Handling Technician Name Role Phone Erica Ramírez Primary Care Provider Mitzy Brush RN Unavailable [phone] Source Comments In the event this information is protected by the Federal Confidentiality of Alcohol and Drug AbusePatient Records regulations: The Federal rules restrict any use of the information to criminally investigate or prosecute any alcohol or drug abuse patient.[facility] Reason for Referral * MRI/CT (Routine) - New RequestSpecialtyDiagnoses / ProceduresReferred By ContactReferred To ContactMR IMAGING Diagnoses Brain tumor (HCC) Left facial numbness Weakness on left side of face Procedures MRI BRAIN WO/W IVCON MRI BRAIN BRAIN STEM W/O W/CONTRAST MATERIAL Isra Corona MD [address] [place] [address] Phone: tel: fax: MR IMAGING [id number] Referral IDStatusReasonStart DateExpiration DateVisits RequestedVisits [id number] Request Auto-Generated Referral Reason for Visit * ReasonCommentsConsult * Consult, Test, Treat (Routine) - ClosedSpecialtyDiagnoses / ProceduresReferred By ContactReferred To ContactNeurology Diagnoses Brain tumor (HCC) Reis's palsy Procedures OFFICE/OUTPATIENT [facility] 60 MINUTES Haim Bustamante MD [address] [place] [address] Phone: tel: fax: Referral IDStatusReasonStart DateExpiration DateVisits RequestedVisits [id number] PCP Requested Referral Encounter Details DateTypeDepartmentCare Team (Latest Contact Info)Ohlkqahehxx21/13/2025 10:00 AM [facility] Neurology [address] [place] [id number] Isra Corona MD [address] [place] [address] Brain tumor (HCC) (Primary Dx); Left facial numbness; Weakness on left side of face Social History Tobacco UseTypesPacks/DayYears UsedDateSmoking Tobacco: NeverSmokeless Tobacco: NeverAlcohol UseStandard Drinks/WeekCommentsYes0 (1 standard drink = 0.6 oz pure alcohol)very very rarelyPHQ-2AnswerDate RecordedPHQ-2 onbyz3305Area Deprivation IndexAnswerDate RecordedNational Score (1-100), lower number is lower aqrd717709/03/2023State Score (1-10), lower number is lower eqjx370 Data from: https://www.neighborhoodatlas.medicine.[facility].edu/. Last address used for stuymtnxsbw[address] 463CommentsNoSex and Gender Information ValueDate RecordedSex Assigned at BirthNot on fileLegal PwyGlejmc43/13/2012 1:50 PM ESTGender IdentityNot on fileSexual OrientationNot on fileOccupationIndustry Job Start DateJob End DateunemployedNot on fileNot on fileNot on filedocumented as of this encounter Functional Status * Are you deaf or do you have serious difficulty hearing?AnswerDate of YeqmttvrooAaxglpAl62/26/2015 1:19 PM Whitney Pitts (Rn), RN * Are you blind or do you have serious difficulty seeing, even when wearing glasses?AnswerDate of DgptrdlclkFsejyeNs04/26/2015 1:19 PM Whitney Pitts (Rn), RN * Do you have serious difficulty walking or climbing stairs?AnswerDate of OfzxxetbrpThuurxQjh65/26/2015 1:19 PM Whitney Pitts (Rn), RN * Do you have difficulty dressing or bathing?AnswerDate of AssessmentAuthorYes 05/19/2015 1:19 PM Whitney Pitts (Rn), RN * Because of a physical, mental, or emotional condition, do you have difficulty doing errands alone such as visiting a doctor's office or shopping?AnswerDate of GnrkhykqznFklstzUib06/26/2015 1:19 PM Whitney Pitts (Melvin), RN documented as of this encounter Mental Status * Because of a physical, mental, or emotional condition, do you have serious difficulty concentrating, remembering, or making decisions?AnswerEntry Date XqjsnsHl50/26/2015 1:19 PM Whitney Pitts (Melvin), RN documented in this encounter Progress Notes * Isra Corona MD - 10/06/2025 10:00 AM EST I received consent from the patient to perform the visit as a virtual encounter. Individuals who were included in, or assisted with the encounter were: Taylor Haskins Isra Corona MD Location: home Reason for Evaluation: Consultation requested by Haim Bustamante for an opinion regarding Reis's palsy My final recommendations will be communicated back to the requesting physician by way of shared medical record or letter to requesting physician via US mail. This is Mrs. Taylor Haskins, a 55 year old female who presents to the [facility] Neurology clinicwith the chief complaint of Reis's palsy Impression left hemifacial weakness Left hemifacial numbness Very interesting case. Approximately 8 months of symptoms. Developed significant left hemifacial paralysis January 2025 during a time of high stress. Ear pain. Subsequent taste change. Treated with antiviral and multiple rounds of steroids. Has significantly improved at this point. Has worked with PT, undergone acupuncture, seems to have been treated with TENS unit, and has seen optometry. Virtual visit assessment today shows residual left hemifacial weakness (especially forehead) as well as a hint of left hemifacial numbness. 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 Plan - Will plan for MRI brain with/without contrast update. Reassess known amyloidoma, give attention to left cranial nerve VII. Any progression of known brain tumor that could explain new left facial weakness and numbness? Will plan to coordinate this with Dr. Rogers. - I will follow-up with the patient after the above - Open-door policy, reach out by MyChart with any questions or concerns -Consider facial reconstruction team referral if patient is interested and all of the above testingis unrevealing Isra Corona MD Staff, [facility] [place] HPI: This is Mrs. 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 Today: Just L face affected Forehead involved, too A little numbness Some muscle twitching Was very weak, this improved Left eye remains weak Tapes it at night Woke up in january 2025 Nothing like this before Slowly worse over a few days Total paralysis Could not more forehead or mouth on that side Could not close left eye Blinking was hard But also way weaker on left side (arm and leg) On antiviral and steroids Started about 3 days later Steroids, multiple times Steroids help Stress high at that time Like this every since, slowly improving Years of known amyloidoma Left arm and leg affected by known amyloidoma No MRI brain since 2023 This has never happened bbefore Taste changed after reis's palsy Had ear pain around the time of onset Was taping the eye at first Saw optometry Cornea looks good per patient They seemed to be happy with how eye looked Did PT Did acupuncture TENS unit? Still doing PT Does not seem to have synkinesis Past history per chart review includes: Past medical history, problem list: DVT (right arm), left foot drop (ultimately thought to be dystonia), hypertension, pneumothorax History of brain tumor, left spastic hemiplegia Amyloidoma Follows with Dr. Bustamante, receives Botox Past surgical history: , cholecystectomy Family history: Heart (father) Social history: Non-smoker Rare alcohol OBJECTIVE: PHYSICAL EXAM: Neurological: Mental Status: Alert. Speech fluent. Cranial Nerves: CNIII, IV, : Eyes cross midline. CN V: a hint of L hemifacial numbness per patient CN VII: A hint of L forehead activation. L face activates fairly well. CN VIII: Hearing intact to virtual platform. CN XI: Shoulder shrug present on right, not on L. Chronic per patient CN XII: Tongue protrusion full, midline. Motor: Struggles to move L arm antigravity Sensation: Reports L arm and L leg numbness Chronic per patient Coordination: Intact nmzedp-mb-cidd-finger like testing on R Weak on L Tested by pointing toward device camera. Gait: Ambulates easily. Left arm and L leg seem to be stiff This note was partially created using voice recognition software and is inherently subject to errors including those of syntax and sound-alike substitutions which may escape proofreading. In such instances, original meaning may be extrapolated by contextual derivation. I spent a total of 46 minutes on the date of the service which included time spent preparing to seethe patient, talking to the patient/documenting in the chart, examining the patient via the virtualplatform, documenting in the chart after the visit, reaching out to a colleague about the case. documented in this encounter Miscellaneous Notes * Addendum Note - Isra Corona MD - 10/06/2025 1:20 PM ESTAddended by: ISRA CORONA on: 10/06/2025 01:20 PM Modules accepted: Orders documented in this encounter Plan of Treatment DateTypeDepartmentCare Team (Latest Contact Info)Krhjjsjkwyq82/17/2025 1:00 PM ESTOffice Visit Rehab Medicine [address] [place], [place] [id number] Haim Bustamante MD [address] [place], [place] [id number] Return in about 3 months (around 11/09/2025) for Repeat Botox injections in 3 months with Dianna in [place].NameTypePriorityAssociated DiagnosesOrder ScheduleMRI BRAIN WO/W IVCONRadiologyRoutine Brain tumor (HCC) Left facial numbness Weakness on left side of face 1 Occurrences starting 10/06/2025 until 11/05/2026documented as of this encounter Visit Diagnoses Diagnosis Brain tumor (HCC)- Primary Neoplasm of unspecified nature of brain Left facial numbness Disturbance of skin sensation Weakness on left side of face documented in this encounter Care Teams Team MemberRelationshipSpecialtyStart DateEnd Date Erica Ramírez PCP - GeneralFamily Nwwhiexi94/13/12 Mitzy Brush, MELVIN [address] [place] [address] Specialty Care CoordinatorHematology/Oncology07/25/23documented as of this encounter
--- OUTSIDE RECORDS SUMMARY | 2025-10-07 10:56 | XMS_ITS | Encounter Summary ---
Author Organization [facility] Address [address] [place] [address] Care Team Providers Care District Adviser Name Role Phone Erica Ramírez Primary Care Provider Mitzy Brush RN Unavailable [phone] Source Comments In the event this information is protected by the Federal Confidentiality of Alcohol and Drug AbusePatient Records regulations: The Federal rules restrict any use of the information to criminally investigate or prosecute any alcohol or drug abuse patient.[facility] Encounter Details DateTypeDepartmentCare Team (Latest Contact Info)Lwkuswpfmts70/07/2025Travel Social History Tobacco UseTypesPacks/DayYears UsedDateSmoking Tobacco: NeverSmokeless Tobacco: NeverAlcohol UseStandard Drinks/WeekCommentsYes0 (1 standard drink = 0.6 oz pure alcohol)very very rarelyPHQ-2AnswerDate RecordedPHQ-2 fksyv8055Area Deprivation IndexAnswerDate RecordedNational Score (1-100), lower number is lower vdtg118609/03/2023State Score (1-10), lower number is lower pmcl776 Data from: https://www.neighborhoodatlas.medicine.[facility].edu/. Last address used for awcwnjhfsjl[address]/11/[address]23CommentsNoSex and Gender Information ValueDate RecordedSex Assigned at BirthNot on fileLegal RppUquywp27/13/2012 1:50 PM ESTGender IdentityNot on fileSexual OrientationNot on fileOccupationIndustry Job Start DateJob End DateunemployedNot on fileNot on fileNot on filedocumented as of this encounter Functional Status * Are you deaf or do you have serious difficulty hearing?AnswerDate of JfsnhmjsvfMgevoeRf53/26/2015 1:19 PM Whitney Pitts (Rn), RN * Are you blind or do you have serious difficulty seeing, even when wearing glasses?AnswerDate of XkgiqfkgxaUmhkuiUz35/26/2015 1:19 PM Whitney Pitts (Rn), RN * Do you have serious difficulty walking or climbing stairs?AnswerDate of UvqpxtachkFaoktxFhh33/26/2015 1:19 PM Whitney Pitts (Rn), RN * Do you have difficulty dressing or bathing?AnswerDate of AssessmentAuthorYes 05/19/2015 1:19 PM Whitney Pitts (Rn), RN * Because of a physical, mental, or emotional condition, do you have difficulty doing errands alone such as visiting a doctor's office or shopping?AnswerDate of YhrkjubtikLytsuxQfk42/26/2015 1:19 PM Whitney Pitts (Rn), RN documented as of this encounter Mental Status * Because of a physical, mental, or emotional condition, do you have serious difficulty concentrating, remembering, or making decisions?AnswerEntry Date EodzjiRm11/26/2015 1:19 PM Whitney Pitts (Rn), RN documented in this encounter Plan of Treatment DateTypeDepartmentCare Team (Latest Contact Info)Mgbmabnwryk32/17/2025 1:00 PM ESTOffice Visit Rehab Medicine [address] [place] [address] Haim Bustamante MD [address] [place] [address] Return in about 3 months (around 11/09/2025) for Repeat Botox injections in 3 months with Dianna in [place].documented as of this encounter Visit Diagnoses Not on filedocumented in this encounter Care Teams Team MemberRelationshipSpecialtyStart DateEnd Date Erica Ramírez PCP - GeneralFamily Qlumcixk56/13/12 [place] [address] [place] [id number] Specialty Care CoordinatorHematology/Oncology07/25/23documented as of this encounter
--- OUTSIDE RECORDS SUMMARY | 2025-10-07 10:56 | XMS_ITS | Encounter Summary ---
Author Organization [facility] Address [address] [place] [address] Care Team Providers Care Shelf Drier Operator Name Role Phone Erica Ramírez Primary Care Provider Mitzy Brush RN Unavailable [phone] Source Comments In the event this information is protected by the Federal Confidentiality of Alcohol and Drug AbusePatient Records regulations: The Federal rules restrict any use of the information to criminally investigate or prosecute any alcohol or drug abuse patient.[facility] Encounter Details DateTypeDepartmentCare Team (Latest Contact Info)Kxtknqdcfkx68/06/2025 Patient Msg Medical Records [address] [place] [address] Erica Ramírez [address] [place] [address] Important Notice for Our Medicare Patients Regarding Appointment Scheduling Social History Tobacco UseTypesPacks/DayYears UsedDateSmoking Tobacco: NeverSmokeless Tobacco: NeverAlcohol UseStandard Drinks/WeekCommentsYes0 (1 standard drink = 0.6 oz pure alcohol)very very rarelyPHQ-2AnswerDate RecordedPHQ-2 glqtg8945Area Deprivation IndexAnswerDate RecordedNational Score (1-100), lower number is lower pugy370909/03/2023State Score (1-10), lower number is lower odrj695 Data from: https://www.neighborhoodatlas.medicine.[facility]/. Last address used for alepyedxwcf[address]CommentsNoSex and Gender Information ValueDate RecordedSex Assigned at BirthNot on fileLegal GteQesuxr29/13/2012 1:50 PM ESTGender IdentityNot on fileSexual OrientationNot on fileOccupationIndustry Job Start DateJob End DateunemployedNot on fileNot on fileNot on filedocumented as of this encounter Functional Status * Are you deaf or do you have serious difficulty hearing?AnswerDate of LexqcpeevwAnyuftPl14/26/2015 1:19 PM Whitney Pitts (Rn), RN * Are you blind or do you have serious difficulty seeing, even when wearing glasses?AnswerDate of McfoqsjqabJnuxvjZa63/26/2015 1:19 PM Whitney Pitts (Rn), RN * Do you have serious difficulty walking or climbing stairs?AnswerDate of MptkqfkddwJknzpnFty52/26/2015 1:19 PM Whitney Pitts (Rn), RN * Do you have difficulty dressing or bathing?AnswerDate of AssessmentAuthorYes 05/19/2015 1:19 PM Whitney Pitts (Rn), RN * Because of a physical, mental, or emotional condition, do you have difficulty doing errands alone such as visiting a doctor's office or shopping?AnswerDate of GvhcnrrpyhJnabmoLor74/26/2015 1:19 PM Whitney Pitts (Rn), RN documented as of this encounter Mental Status * Because of a physical, mental, or emotional condition, do you have serious difficulty concentrating, remembering, or making decisions?AnswerEntry Date IwmopjJg75/26/2015 1:19 PM Whitney Pitts (Rn), RN documented in this encounter Plan of Treatment DateTypeDepartmentCare Team (Latest Contact Info)Nactvcnkeun75/17/2025 1:00 PM ESTOffice Visit Rehab Medicine [address] [address] Haim Bustamante MD [address] [place] [address] Return in about 3 months (around 11/09/2025) for Repeat Botox injections in 3 months with Dianna in [place].documented as of this encounter Visit Diagnoses Not on filedocumented in this encounter Care Teams Team MemberRelationshipSpecialtyStart DateEnd Date Erica Ramírez PCP - GeneralFamily Uuzhcjzu54/13/12 [place] [address] [place] [address] Specialty Care CoordinatorHematology/Oncology07/25/23documented as of this encounter
--- OUTSIDE RECORDS SUMMARY | 2025-10-07 10:56 | XMS_ITS | Encounter Summary ---
Author Organization [facility] Address [address] [place] [address] Care Team Providers Care Watch Repairer Name Role Phone Ara Vanegas LINE RUNNER Unavailable Encounter Details DateTypeDepartmentCare Team (Latest Contact Info)Fixgccvtlmu02/05/2025Travel Social History Tobacco UseTypesPacks/DayYears UsedDateSmoking Tobacco: NeverAlcohol UseStandard Drinks/WeekCommentsNever0 (1 standard drink = 0.6 oz pure alcohol) CommentsNoSex and Gender InformationValueDate RecordedSex Assigned at BirthNot on fileLegal MtxCiuocf20/15/2023 6:51 PM EDTGender IdentityNot on fileSexual OrientationNot on filedocumented as of this encounter Plan of Treatment DateTypeDepartmentCare Team (Latest Contact Info)Kqscaejiont43/04/2025 11:10 AM ESTOffice Visit [facility] [place] [facility] [address] [place] [address] Carter Agosto DO [address] [place] [address] documented as of this encounter Visit Diagnoses Not on filedocumented in this encounter Care Teams Team MemberRelationshipSpecialtyStart DateEnd Date Ara Vanegas NP [address] [place] [address] Referring PhysicianFamily Njytgyvg63/8/25documented as of this encounter
--- OUTSIDE RECORDS SUMMARY | 2025-10-07 10:56 | XMS_ITS | Encounter Summary ---
Author Organization [facility] Address [address] [place] [address] Care Team Providers Care Recreation Manager Name Role Phone GuilhermeAra ELECTRIC REFRIGERATOR SERVICER Unavailable Encounter Details DateTypeDepartmentCare Team (Latest Contact Info)Uofxfkzcces75/06/2025amboo flowsheet [facility] [address] [address] Carter Agosto DO [address] [place] [address] Dr [place], [facility] Social History Tobacco UseTypesPacks/DayYears UsedDateSmoking Tobacco: NeverAlcohol UseStandard Drinks/WeekCommentsNever0 (1 standard drink = 0.6 oz pure alcohol) CommentsNoSex and Gender InformationValueDate RecordedSex Assigned at BirthNot on fileLegal RcuXbsovp14/15/2023 6:51 PM EDTGender IdentityNot on fileSexual OrientationNot on filedocumented as of this encounter Plan of Treatment DateTypeDepartmentCare Team (Latest Contact Info)Xcbzitoultj10/04/2025 11:10 AM ESTOffice Visit [facility] [address] [place] [address] Carter Agosto DO [address] [place], [place] [phone] documented as of this encounter Visit Diagnoses Not on filedocumented in this encounter Care Teams Team MemberRelationshipSpecialtyStart DateEnd Date Ara Vanegas NP [address] [place] [address] Referring PhysicianFamily Ahnuqcjk97/8/25documented as of this encounter
--- OUTSIDE RECORDS SUMMARY | 2025-10-07 10:56 | XMS_ITS | Encounter Summary ---
Author Organization [facility] Address [address] [place] [address] Care Team Providers Care Living Manager Name Role Phone Erica Ramírez Primary Care Provider Mitzy Brush RN Unavailable [phone] Source Comments In the event this information is protected by the Federal Confidentiality of Alcohol and Drug AbusePatient Records regulations: The Federal rules restrict any use of the information to criminally investigate or prosecute any alcohol or drug abuse patient.[facility] Encounter Details DateTypeDepartmentCare Team (Latest Contact Info)Hridqazngte49/13/2025 Patient Msg Neurology [address] [place] [address] Isra Corona MD [address] [place] [address] Follow up Social History Tobacco UseTypesPacks/DayYears UsedDateSmoking Tobacco: NeverSmokeless Tobacco: NeverAlcohol UseStandard Drinks/WeekCommentsYes0 (1 standard drink = 0.6 oz pure alcohol)very very rarelyPHQ-2AnswerDate RecordedPHQ-2 wrykh2585Area Deprivation IndexAnswerDate RecordedNational Score (1-100), lower number is lower nuhk146109/03/2023State Score (1-10), lower number is lower bxuv598 Data from: https://www.neighborhoodatlas.[facility]/. Last address used for jbvkuyiooph[address]/03/[address]23CommentsNoSex and Gender Information ValueDate RecordedSex Assigned at BirthNot on fileLegal QstXcddpj97/13/2012 1:50 PM ESTGender IdentityNot on fileSexual OrientationNot on fileOccupationIndustry Job Start DateJob End DateunemployedNot on fileNot on fileNot on filedocumented as of this encounter Functional Status * Are you deaf or do you have serious difficulty hearing?AnswerDate of CfupiktkbgMrabhzQw70/26/2015 1:19 PM Whitney Pitts (Rn), RN * Are you blind or do you have serious difficulty seeing, even when wearing glasses?AnswerDate of PshpxvbcciPfffaxBm40/26/2015 1:19 PM Whitney Pitts (Rn), RN * Do you have serious difficulty walking or climbing stairs?AnswerDate of BzchttstweZmtsmvMhl37/26/2015 1:19 PM Whitney Pitts (Rn), RN * Do you have difficulty dressing or bathing?AnswerDate of AssessmentAuthorYes 05/19/2015 1:19 PM Whitney Pitts (Rn), RN * Because of a physical, mental, or emotional condition, do you have difficulty doing errands alone such as visiting a doctor's office or shopping?AnswerDate of OrpjftleqcFbhyoaCbo15/26/2015 1:19 PM Whitney Pitts (Rn), RN documented as of this encounter Mental Status * Because of a physical, mental, or emotional condition, do you have serious difficulty concentrating, remembering, or making decisions?AnswerEntry Date OtfmhwIe53/26/2015 1:19 PM Whitney Pitts (Rn), RN documented in this encounter Plan of Treatment DateTypeDepartmentCare Team (Latest Contact Info)Kfvijayvvbi77/17/2025 1:00 PM ESTOffice Visit Rehab Medicine [address] [place] [address] Haim Bustamante MD [address] [place], [place] [phone] Return in about 3 months (around 11/09/2025) for Repeat Botox injections in 3 months with Dianna in [place].documented as of this encounter Visit Diagnoses Not on filedocumented in this encounter Care Teams Team MemberRelationshipSpecialtyStart DateEnd Date Erica Ramírez PCP - GeneralFamily Zuswhxaw48/13/12 [place] [address] [place] [address] Specialty Care CoordinatorHematology/Oncology07/25/23documented as of this encounter
--- OUTSIDE RECORDS SUMMARY | 2025-10-07 10:56 | XMS_ITS | Clinical Summary ---
Author Organization [facility] Address [address] [place] [address] Care Team Providers Care Revenue Integrity Analyst Name Role Phone Erica Ramírez Primary Care Provider Mitzy Brush RN Unavailable [phone] Allergies Active AllergyReactionsCriticalityNoted NopsAnwkmrjcEuelxompJpiry99/01/2016 Pt had a morphine injection and broke [...] Take 1 tablet by mouth once daily.5Active iv contrast (will be provided with radiology test) Indications:Brain tumor (HCC),Left facial numbness,Weakness on left side of face MRI Brain Inject, intravenously, once for 1 [...] the MR contrast administration guidelines link 1 each 515Active Active Problems Patient Care Coordination No te [...] protocol Cervical Spine Negative Rehab Planning Therapies: FRAME STRAIGHTENER PT OT At risk for seizures BEM: [...] Bowel regimen: colace, dulcolax prn. Last BM INTERNAL COMMUNICATIONS SPECIALIST Endo: Active Endo Problems, relevant PMH Glycemia: [...] universal consent ProblemNoted DateDiagnosed DateScreening for endocrine /31/2018Fatigue 10/02/2017Dental zsfccozpz24/19/2016UTI (lower urinary tract infection) 11/30/2014Lack of gxjwxn5206/22/2014Nausea and qkpxfzaf46/02/2014Cellulitis 07/27/2013URI (upper respiratory infection)03/15/2013bnormality of gait 02/17/20138297Xkpspjngvhu63/21/6056Wrefjw68/17/2013Other conditions of brain(348.89) 11/09/2012 Encounters DateTypeDepartmentCare VflzUldlpofrhys06/13/2025 10:00 AM [facility] [address] [place] [phone] Isra Corona MD Brain tumor (HCC) (Primary Dx); Left facial numbness; Weakness on left side of face10/06/2025 Patient Msg Neurology [address] [place] [phone] Isra Corona MD Follow up09/30/20254087Vkkult31/06/2025 Patient Msg Medical Records [address] [place] [address] Erica Ramírez Important Notice for Our Medicare Patients Regarding Appointment Scheduling 09/27/2025 Get Medical Advice Rehab Medicine [address] [place] [address] Haim Bustamante MD Pfogbvnfowah12/17/2025 11:15 AM EDTOffice Visit Rehab Medicine [address] [place] [address] Haim Bustamante MD 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); Brain tumor (HCC); Reis's palsy08/10/20252213Ztgdio13/21/2025 Get Medical Advice Rehab Medicine [address] [place], [place] [phone] Haim Bustamante MD botoxfrom Last 3 Months Immunizations ImmunizationAdministration DatesNext Dueinfluenza (IIV4) vaccine, age 6 mo - 64 yr, quadrivalent, PF (AFLURIA, FLUARIX, FLULAVAL, FLUZONE)09/17/2021,09/21/2019, 09/19/2014influenza vaccine, unspecified kgxjzcadlss15/01/2013,11/26/2012 Family History Medical HistoryRelationCommentsHeartFatherRelationStatusCommentsFatherPaternal GrandfatherDeceasedaneurysm Social History Tobacco UseTypesPacks/DayYears UsedDateSmoking Tobacco: NeverSmokeless Tobacco: Never Tobacco Cessation:Counseling Given: No Alcohol UseStandard Drinks/WeekCommentsYes0 (1 standard drink = 0.6 oz pure alcohol)very very rarelyPHQ-2AnswerDate RecordedPHQ-2 sxvcy1185Area Deprivation IndexAnswerDate RecordedNational Score (1-100), lower number is lower eqsl011409/03/2023State Score (1-10), lower number is lower ndsa773 Data from: https://www.neighborhoodatlas.medicine.[facility].edu/. Last address used for rzzelautryz[address] 463CommentsNoSex and Gender Information ValueDate RecordedSex Assigned at BirthNot on fileLegal TdhUbiduo87/13/2012 1:50 PM ESTGender IdentityNot on fileSexual OrientationNot on fileOccupationIndustry Job Start DateJob End DateunemployedNot on fileNot on fileNot on file Last Filed Vital Signs Vital SignReadingTime TakenCommentsBlood Hfunhvba040/7912/15/2024 1:08 PM EST Liuzz769312/15/2024 1:08 PM KFPBzqzltumayp61.1 ??C (98.7 ??F)04/16/2024 4:08 PM EDTRespiratory Bfpi488204/16/2024 4:08 PM EDTOxygen Qmloahhagw55%04/16/2024 4:08 PM EDTInhaled Oxygen Concentration--Slzaki470.2 kg (236 lb 5.3 oz)04/16/2024 4:08 PM LZWHiwjsk431.3 cm (5' 11 )04/16/2024 4:08 PM EDTBody Mass Index32.96 04/16/2024 4:08 PM EDT Plan of Treatment DateTypeDepartmentCare Team (Latest Contact Info)Ojtvbdeqbcj20/17/2025 1:00 PM ESTOffice Visit Rehab Medicine [address] [place] [address] Haim Bustamante MD [address] [place], [place] [phone] Return in about 3 months (around 11/09/2025) for Repeat Botox injections in 3 months with Dianna in [place].Health MaintenanceDue DateLast DoneCommentsAnxiety Lixnloclh06/16/1990Depression Oacbdcofz72/16/1990HIV Ulpkhpwkk90/16/1990 Hepatitis C Cvieuimgg99/16/1990Hepatitis B Vaccine (1 of 3 - 19+ 3-dose series) 1991Cervical Cancer Qyqffybjf56/16/1993Mammogram Fjlocsfdt30/16/2012CT Onyauwtmpfgm06/16/2017Cologuard (FIT-DNA)09/08/20177170Vgviafeuaku65/16/2017 Colorectal Cancer Trvfthwua06/16/2017Fecal Occult Blood2017Lipid Screening 09/08/20173058Pntfkgmkqhmij66/16/2017DTaP,Tdap,Td Vaccine (2 - Td or Tdap)09/16/2021 09/16/2011Pneumococcal Vaccine: 50+ (1 of 1 - PCV)2022hingrix Vaccine (1 of 2)2022Medicare Advantage Annual Wellness Visit5Covid-19 Vaccine (3 - 2024- season)509/, 1Diabetes Screening /, 12/16/2022, 09/17/2021, Additional history existsInfluenza AsfefqiStlvpnlkt58/11/2025, 09/14/2024, 10/08/2023, Additional history exists Procedures Procedure NamePriorityDate/TimeAssociated DiagnosisCommentsCOMPREHENSIVE METABOLIC FORHEOgaduqo30/24/2024 3:47 PM EDT AL amyloidosis (HCC) from Last 3 Months or Most Recently Relevant to Health Maintenance Results * COMP METABOLIC PANEL (04/16/2024 3:47 PM EDT)ComponentValueRef RangeTest MethodAnalysis TimePerformed AtPathologist SignatureProtein, Total7.66.3 - 8.0 g/dL04/16/2024 4:20 PM [facility] LABAlbumin4.43.9 - 4.9 g/dL 04/16/2024 4:20 PM EDTC[facility] LABCalcium, Total9.38.5 - 10.2 mg/dL04/16/2024 4:20 PM EDTC[facility] LABBilirubin, Total0.30.2 - 1.3 mg/dL04/16/2024 4:20 PM EDTCANC[facility] LABAlkaline Ykgqfocczhd69 34 - 123 U/L04/16/2024 4:20 PM [facility]TC[facility] OWBJRB0746 - 35 U/L 04/16/2024 4:20 PM EDTC[facility] WHIBDZ60 - 38 U/L04/16/2024 4:20 PM [facility]TC[facility] RKIQkrgnld2258 - 99 mg/dL04/16/2024 4:20 PM EDT [facility] LABComment: The [place] Diabetes Association (ADA) provides guidance for cutoff [...] Standards of Medical Care in Diabetes 2016, [place] Diabetes Association. Diabetes Care. 2016.39(Suppl 1). GZT308 - 21 mg/dL04/16/2024 4:20 PM EDTCANC[facility] LABCreatinine0.60 0.58 - 0.96 mg/dL04/16/2024 4:20 PM [facility]TC[facility] QVLNdlzzg049284 - 144 mmol/L04/16/2024 4:20 PM EDTC[facility] LABPotassium4.13.7 - 5.1 mmol/L04/16/2024 4:20 PM EDTC[facility] ZLHMqovvtqd69901 - 105 mmol/L 04/16/2024 4:20 PM EDTC[facility] FLTZG61605 - 30 mmol/L04/16/2024 4:20 PM EDTC[facility] LABAnion Fea157 - 18 mmol/L04/16/2024 4:20 PM EDTCANC[facility] LABEstimated Glomerular Filtration Ouda971>=60 mL/min/1.73m 04/16/2024 4:20 PM EDTCANCER [facility] LABComment:Estimated Glomerular Filtration Rate (eGFR) is [...] VolumeCollection TimeReceived TimeBloodBLOOD SPECIMEN / UnknownVenipuncture / Wvchkit8204/16/2024 3:47 PM EDT04/16/2024 3:51 PM EDT Narrative Authorizing ProviderResult TypeResult StatusiMo Rogers MDLABORATORYFinal ResultPerforming OrganizationAddressCity/State/ZIP CodePhone Number [facility] [address] [address], from Last 3 Months or Most Recently Relevant to Health Maintenance Insurance * Guarantor: Taylor Haskins TypeRelation to PatientDate of BirthPhoneBilling GvsijkfVmbmzznoFekd1970 [id number] [place] [address] * Guarantor: Taylor Haskins TypeRelation to PatientDate of BirthPhoneBilling AddressSelf ApbFmuy5709/08/1970 [id number] [place] [address] Care Teams Team MemberRelationshipSpecialtyStart DateEnd Erica Ramírez PCP - GeneralFamily Lrbztynt70/13/12 Mitzy Brush, MELVIN [address] [place] [address] Specialty Care CoordinatorHematology/Oncology07/25/23
--- OUTSIDE RECORDS SUMMARY | 2025-10-07 10:56 | XMS_ITS | Encounter Summary ---
Author Organization [facility] Address [address] [place] [address] Care Team Providers Care Assembly Mechanic Name Role Phone Guilherme, Ara BAND SEWER Unavailable Encounter Details DateTypeDepartmentCare Team (Latest Contact Info)Moogbuguqkb24/11/2025linisync Result Encounter [facility] External Department Unsolicited Carter Agosto, DO [address] [place], [facility]11 Social History Tobacco UseTypesPacks/DayYears UsedDateSmoking Tobacco: NeverAlcohol UseStandard Drinks/WeekCommentsNever0 (1 standard drink = 0.6 oz pure alcohol) CommentsNoSex and Gender InformationValueDate RecordedSex Assigned at BirthNot on fileLegal UxvZefbbv25/15/2023 6:51 PM EDTGender IdentityNot on fileSexual OrientationNot on filedocumented as of this encounter Plan of Treatment DateTypeDepartmymichigan medical center gladwinCare Team (Latest Contact Info)Ecwlqpxbrjb07/04/2025 11:10 AM ESTOffice Visit [facility] [address] [place] [address] Carter Agosto DO [address] [place], [place] [phone] documented as of this encounter Procedures Procedure NamePriorityDate/TimeAssociated DiagnosisCommentsTBH GLUCOSE BLOOD Ugyiblz3010/04/2025 2:55 PM EST MLR HEMOGLOBIN E1PCoezrpe97/11/2025 2:55 PM EST CCF MQEAADFIFwsplzt99/11/2025 2:55 PM EST ALL THYROXINE (T4) ECHUGauyicq54/11/2025 2:55 PM EST ALL THYROXINE (T4)Zumlpws3110/04/2025 2:55 PM EST ALL THYROID STIM PPHHGUXSagmfes64/11/2025 2:55 PM EST ALL T3 ITHVQzrhgvo38/11/2025 2:55 PM EST documented in this encounter Results * ALL THYROXINE (T4) FREE (10/04/2025 2:55 PM EST)ComponentValueRef RangeTest MethodAnalysis TimePerformed AtPathologist SignatureFREE T40.910.76 - 1.46 ng/dLTBHSpecimen (Source)Anatomical Location / LateralityCollection Method / VolumeCollection TimeReceived Time10/04/2025 2:55 PM EST10/04/2025 3:04 PM EST Narrative [facility] - 10/04/2025 4:11 PM EST Authorizing ProviderResult TypeResult StatusCorey Surendra DOCLINISYNCFinal Result Performing OrganizationAddressCity/State/ZIP CodePhone Number [facility] * CCF FERRITIN (10/04/2025 2:55 PM EST)ComponentValueRef RangeTest Method Analysis TimePerformed AtPathologist YhiogcyfiBVQYCWVT619.08.0 - 252.0 ng/mL TBHSpecimen (Source)Anatomical Location / LateralityCollection Method / Volume Collection TimeReceived Time10/04/2025 2:55 PM EST10/04/2025 3:04 PM EST Narrative CLINISYNC - 10/04/2025 4:11 PM EST Authorizing ProviderResult TypeResult StatusCorey Surendra DOCLINISYNCFinal Result Performing OrganizationAddressCity/State/ZIP CodePhone Number [facility] * ALL THYROID STIM HORMONE (10/04/2025 2:55 PM EST)ComponentValueRef RangeTest MethodAnalysis TimePerformed AtPathologist SignatureTHYROID STIMULATING HORMONE1.6140.358 - 3.740 uIU/mLTBHSpecimen (Source)Anatomical Location / LateralityCollection Method / VolumeCollection TimeReceived Time10/04/2025 2:55 PM EST10/04/2025 3:04 PM EST Narrative CLINISYNC - 10/04/2025 3:55 PM EST Authorizing ProviderResult TypeResult StatusCorey Surendra DOCLINISYNCFinal Result Performing OrganizationAddressCity/State/ZIP CodePhone Number [facility] * ALL THYROXINE (T4) (10/04/2025 2:55 PM EST)ComponentValueRef RangeTest Method Analysis TimePerformed AtPathologist SignatureT4 THYROXINE6.904.80 - 13.90 ug/dLTBHSpecimen (Source)Anatomical Location / LateralityCollection Method / VolumeCollection TimeReceived Time10/04/2025 2:55 PM EST10/04/2025 3:04 PM EST Narrative CLINISYNC - 10/04/2025 3:55 PM EST Authorizing ProviderResult TypeResult StatusCorey Surendra DOCLINISYNCFinal Result Performing OrganizationAddressCity/State/ZIP CodePhone Number [facility] * ALL T3 FREE (10/04/2025 2:55 PM EST)ComponentValueRef RangeTest MethodAnalysis TimePerformed AtPathologist SignatureFREE T32.292.18 - 3.98 pg/mLTBHSpecimen (Source)Anatomical Location / LateralityCollection Method / VolumeCollection TimeReceived Time10/04/2025 2:55 PM EST10/04/2025 3:04 PM EST Narrative CLINISYNC - 10/04/2025 3:55 PM EST Authorizing ProviderResult TypeResult StatusCorey Surendra DOCLINISYNCFinal Result Performing OrganizationAddressty/State/ZIP CodePhone Number [facility] * (ABNORMAL) TBH GLUCOSE BLOOD (10/04/2025 2:55 PM EST)ComponentValueRef Range Test MethodAnalysis TimePerformed AtPathologist NnnbdzlhcPONKIRH891(H)74 - 106 mg/dLTBHSpecimen (Source)Anatomical Location / LateralityCollection Method / VolumeCollection TimeReceived Time10/04/2025 2:55 PM EST10/04/2025 3:04 PM EST Narrative CLINISYNC - 10/04/2025 3:55 PM EST Authorizing ProviderResult TypeResult StatusCorey Surendra DOCLINISYNCFinal Result Performing OrganizationAddressCity/State/ZIP CodePhone Number [facility] * MLR HEMOGLOBIN A1C (10/04/2025 2:55 PM EST)ComponentValueRef RangeTest Method Analysis TimePerformed AtPathologist SignatureGLYCOHEMOGLOBIN A1C5.44.5 - 6.2 %TBHComment: ADA RECOMMENDED LIMIT 4.0 - 6.0 ADA THERAPEUTIC TARGET < 7.0 ACTION SUGGESTED > 7.0 ESTIMATED AVERAGE BPXVDVI537iy/dLTBHSpecimen (Source)Anatomical Location / LateralityCollection Method / VolumeCollection TimeReceived Time10/04/2025 2:55 PM EST10/04/2025 3:04 PM EST Narrative CLINISYNC - 10/04/2025 3:47 PM EST Authorizing ProviderResult TypeResult StatusCorey Surendra DOCLINISYNCFinal Result Performing OrganizationAddressCity/State/ZIP CodePhone Number [facility] documented in this encounter Visit Diagnoses Not on filedocumented in this encounter Care Teams Team MemberRelationshipSpecialtyStart DateEnd Date Ara Vanegas NP [address] [place] [address] Referring PhysicianFamily Ejsvuioq97/8/25documented as of this encounter
--- OUTSIDE RECORDS SUMMARY | 2025-10-07 10:56 | XMS_ITS | Encounter Summary ---
Author Organization [facility] Address [address] [place] [address] Care Team Providers Care Manufacturing Lead Name Role Phone Guilherme, Ara DIETARY INTERNSHIP Unavailable Encounter Details DateTypeDepartmentCare Team (Latest Contact Info)Mcnpnhujvco32/12/2025linisync Result Encounter [facility] External Department Unsolicited Molina Agosto DO [address], [place] [phone] Social History Tobacco UseTypesPacks/DayYears UsedDateSmoking Tobacco: NeverAlcohol UseStandard Drinks/WeekCommentsNever0 (1 standard drink = 0.6 oz pure alcohol) CommentsNoSex and Gender InformationValueDate RecordedSex Assigned at BirthNot on fileLegal CmiErzbic80/15/2023 6:51 PM EDTGender IdentityNot on fileSexual OrientationNot on filedocumented as of this encounter Plan of Treatment DateTypeDepartmentCare Team (Latest Contact Info)Hujelswiqzo47/04/2025 11:10 AM ESTOffice Visit [facility] [place] [facility] [address] [place] [phone] Molina Agosto DO [address], [place] [phone] documented as of this encounter Procedures Procedure NamePriorityDate/TimeAssociated DiagnosisCommentsUS NONVASCULAR RIGHT EXTREMITY 912796512/05/2024 8:04 AM EST documented in this encounter Results * US NONVASCULAR RIGHT EXTREMITY [address] (10/05/2025 8:04 AM EST)Anatomical Region LateralityModalityRadiographic ImagingSpecimen (Source)Anatomical Location / LateralityCollection Method / VolumeCollection TimeReceived Time10/05/2025 8:04 AM EST Narrative 10/05/2025 8:07 AM EST [facility] ?[address] ? [place] [address] ? Ultrasound Report ? Signed ? Patient: TAYLOR RAMON ?MR#: [id number] ?? : 1970 ?Acct:[id number] ?? Age/Sex: 55 / F ?ADM Date: 10/04/25 ?? Loc: US ? Attending Dr: Molina Agosto D.O. ? Ordering Physician: Molina Agosto D.O. ?? Date of Service: 10/04/25 ?? Procedure(s): US extremity nonvascular RT ?? Accession Number(s): [id number] ? cc: Molina Agosto D.O.; ARA CRAVEN ? [facility] ? [address] ? [place] [address] ? Patient Name: ?? TAYLOR ??TRISTEN ? MRN: [facility]:[id number] ? date: 1970 ?Sex: F ?? Assigned Patient Location: US ?? Current Patient Location: ? Accession/Order Number: [id number] ?? Exam Date: 10/04/2025 ??15:09 ?Report Date: 10/05/2025 ??08:04 ? At the request of: ?? MOLINA ??SURENDRA ??DO ? Procedure: ??US extremity nonvascular RT ? LIMITED ULTRASOUND - right axilla ? CLINICAL DATA: Right axillary lump for the past week. ? COMPARISON: None ? Real-time ultrasound evaluation of the right axilla was performed. ??Within the ?? subcutaneous fat at the site of palpable concern, there is an ill-defined 4 mm ?? heterogeneous area. ??Appearance is nonspecific. ??It does not resemble a lymph ?? node. ??Sebaceous cyst is in the differential. ??No other cystic or solid masses ?? are identified. ? US/US extremity nonvascular RT ?? IMPRESSION: ? TINY NONSPECIFIC ILL-DEFINED AREA WITHIN THE SUBCUTANEOUS FAT AT THE SITE OF ?? PALPABLE CONCERN, DESCRIBED ? Impression dictated by: Camelia Victor M.D. ??10/05/2025 8:04 AM ? Dictation Location: RADIO-PC-02 ? Electronically authenticated by: [id number] ??Y ?? Date: 10/05/2025 ??08:04 ? Dictated By: ?Camelia Victor M.D. ? Signed By: ?10/05/25806 ? DD/ 0804 ? TD/TT: ? Soubrette: Procedure Note Radiology, Radiologist, MD - 10/05/2025 [place] [address] Ultrasound Report Signed Patient: HANNAH RAMON#: [id number] : 1970Acct:[id number] Age/Sex: 55 / FADM Date: 10/04/25 Loc: US Attending Dr: Molina Agosto D.O. Ordering Physician: Molina Agosto D.O. Date of Service: 10/04/25 Procedure(s): US extremity nonvascular RT Accession Number(s): [id number] cc: Molina Agosto D.O.; ARA CRAVEN [address] [address] Patient Name: TAYLOR RAMON MRN: [facility]:[id number] date: 1970 Sex: F Assigned Patient Location: Current Patient Location: Accession/Order Number: [id number] Exam Date: 10/04/2025 15:09 Report Date: 10/05/2025 08:04 At the request of: MOLINA AGOSTO DO Procedure: US extremity nonvascular RT LIMITED ULTRASOUND - right axilla CLINICAL DATA: Right axillary lump for the past week. COMPARISON: None Real-time ultrasound evaluation of the right axilla was performed. Withinthe subcutaneous fat at the site of palpable concern, there is an ill-defined4 mm heterogeneous area. Appearance is nonspecific. It does not resemble alymph node. Sebaceous cyst is in the differential. No other cystic or solidmasses are identified. US/US extremity nonvascular RT IMPRESSION: TINY NONSPECIFIC ILL-DEFINED AREA WITHIN THE SUBCUTANEOUS FAT AT THE SITEOF PALPABLE CONCERN, DESCRIBED Impression dictated by: Camelia Victor M.D. 10/05/2025 8:04 AM Dictation Location: [place] [address] Electronically authenticated by: [id number] Y Date: 508:04 Dictated By: Camelia Victor M.D. Signed By:10/05/25806 DD/ 3 TD/TT: Soubrette: Authorizing ProviderResult TypeResult StatusCorey Surendra DOIMG XR PROCEDURESFinal Result documented in this encounter Visit Diagnoses Not on filedocumented in this encounter Care Teams Team MemberRelationshipSpecialtyStart DateEnd Date Ara Craven NP [address] [place] [address] Referring PhysicianFamily Jrtiumdl57/8/25documented as of this encounter
--- OUTSIDE RECORDS SUMMARY | 2025-10-07 10:56 | XMS_ITS | Clinical Summary ---
Author Organization [facility] Address [address] [place] [address] Care Team Providers Care Pre Press Proofer Name Role Phone Ara Craven BLEACHER OPERATOR Unavailable Allergies Active AllergyReactionsCriticalityNoted DateCommentsBee VenomSwellingHigh 12/22/2024MorphineHives,ClmzCbn6311/24/2015 Pt had a morphine injection and broke out in hives, with itching Medications MedicationSigDispense QuantityRefillsLast FilledStart DateEnd DateStatus Estrace 1 MG tablet 10/25/2024ctive baclofen (Lioresal) 10 MG tablet Take 10 mg by mouth in the morning.08/10/2025tive gabapentin (Neurontin) 300 MG capsule See Instructions, TAKE 1 CAPSULE BY MOUTH TWICE A DAY, # 60 cap(s), Refills(s) 0, Pharmacy: [id number], 180, cm, 03/22/25 13:45:00 EDT, Height/Length Dosing, 100.4, kg, 03/22/25 13:45:00 EDT, Weight Zijchn275Active phentermine 37.5 MG capsule 37.5 mg07/08/2024ctive valACYclovir [...] mouthDiscontinued(Therapy completed) Active Problems ProblemNoted DateDiagnosed DateBell's palsy09/05/20255983Zyijmxvuut58/13/2025reast cancer eoronprsh76/13/2025ongestion of nasal sinus09/05/20251342Gtpys39/13/2025 Depressive vbnorion06/13/2025 Overview (09/05/2025): Outside Source Comment: Comment on above: added per 03/07/2025 query response. Ear pain, left09/05/2025Elevated WBCs16846Rrqkgbk83/13/2025Excessive dietary caloric uhsjmn5909/05/2025Fluid level behind tympanic membrane of left ear 09/05/2025History of brain gxibcpth35/13/2025 Overview (09/05/2025): Added per Earl Craven query response, added per outpatient CDI policy. History of gestational yxyapvzy20/13/2025Insulin yzkqnrffrb29/13/2025 Intracranial tumor09/05/2025hronic otitis media09/05/2025Microhematuria 09/05/2025Moderate episode of recurrent major depressive kipufrqw70/13/2025 Overview (09/05/2025): Noted by MERISSA Cote [employer] last documented on 20250322 Non-nmquyd9909/05/2025dult BMI 33.0-33.9 kg/sq m1Oligohydramnios ([facility]-HCC)09/05/2025Overactive whthhse0009/05/2025Placental insufficiency ([facility]-HCC) 09/05/2025 Overview (09/05/2025): GRADE 2 PLACENTA Postinfective urethral stricture in bxgzqn1009/05/2025Recurrent oral herpes simplex zkguneotm04/13/2025Skin rigtvqpka25/13/2025Spastic hemiplegia affecting left nondominant side09/05/2025 Overview (09/05/2025): Noted by [facility] last documented on 20241215 Staph hbloipssb25/13/2025Uterine yduurqqus92/13/2025UTI /13/2025 Mvhqbfk4210/02/2017Dental /19/2016Lower urinary tract infectious nstezlg9811/30/2014Lack of mecbbw5406/22/2014Nausea and /02/2014Cellulitis 07/27/2013URI (upper respiratory infection)03/15/2013bnormality of gait 02/17/20132716Maanrmmpone66/21/2013 Overview (09/05/2025): Documented on 09/17/2021 Wabaiu9312/10/2012 Encounters DateTypeDepartmentCare EotyVjfsitvrdkh52/12/2025linisync Result Encounter [facility] Unsolicited Molina Agosto DO 11/11/2025Clinisync Result Encounter [facility] External Department Unsolicited Molina Agosto DO 09/29/2025 10:10 AM ESTOffice Visit [facility] [address] [place] [address] [place] [address] Molina Agosto, DO Hormonal disorder; Hot flashes; Mood changes; Right axillary swelling; Encounter for screening mammogram for malignant neoplasm of emxsup4909/29/2025 Bamboo flowsheet [facility] [address] [place] [address] Molina Agosto DO 09/28/20258672Xibqhy94/22/2025 3:00 PM EDTClinical Support [facility] [address] [facility] [address] [place] [address] Marlene Arias CCC-A Plugged feeling in ear, left (Primary Dx); Benign paroxysmal positional vertigo, left09/14/2025amboo flowsheet [facility] [address] [place] [address] Marlene Arias CCC-A 09/12/2025Telephone [facility] [address] [facility] [address] [place] [address] Mely Pichardo MD wants referral sent to her phy gvutulksc59/14/2025 8:40 AM EDTOffice Visit [facility] [address] [place] [address] Mely Pichardo MD Ear fullness, left (Primary Dx); 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; BPPV (benign paroxysmal positional vertigo), left; ETD (Eustachian tube dysfunction), geyjdjjee50/14/2025amboo flowsheet [facility] [address] [facility] [address] [place] [address] Mely Pichardo MD 09/06/2025Travelfrom Last 3 Months Immunizations ImmunizationAdministration DatesNext DueInfluenza, Pxpruhivqah18/22/2024, 09/05/2021,09/24/2013,11/26/2012Influenza, injectable, quadrivalent, preservative free10/08/2023,09/17/2021,09/21/2019,09/19/2014Tdap1 Family History Medical HistoryRelationNameCommentsHeart failureFatherdennisDiabetesMaternal GrandfatherrobertRelationNameStatusCommentsFatherdennisDeceasedMaternal GrandfatherrobertAliveMotherAlive Social History Tobacco UseTypesPacks/DayYears UsedDateSmoking Tobacco: NeverAlcohol UseStandard Drinks/WeekCommentsNever0 (1 standard drink = 0.6 oz pure alcohol) CommentsNoSex and Gender InformationValueDate RecordedSex Assigned at BirthNot on fileLegal ZymCueyll46/15/2023 6:51 PM EDTGender IdentityNot on fileSexual OrientationNot on file Last Filed Vital Signs Vital SignReadingTime TakenCommentsBlood Dvidkvcz996/7409/29/2025 10:28 AM EST Gyiij068309/06/2025 8:51 AM EDTTemperature--Respiratory Rate--Oxygen Saturation-- Inhaled Oxygen Concentration--Rvortu564 kg (228 lb 8 oz)09/29/2025 10:28 AM EST Ewmecc296.3 cm (5' 11 )09/06/2025 8:51 AM EDTBody Mass Index31.8709/06/2025 8:51 AM EDT Plan of Treatment DateTypeDepartmentCare Team (Latest Contact Info)Pdoctsafrjn12/04/2025 11:10 AM ESTOffice Visit [facility] [address] [place] [address] Molina Agosto, [address] [place] [address] Health MaintenanceDue DateLast DoneCommentsCT Qsulgfpjveel1972Colonoscopy 1970Colorectal Cancer Tujcibpgk1972FIT-DNA1972FIT1970 FOBT09/08/19729446Arvznhmdgnubz1972HPV/Rwycal7109/08/20023114Xuhhbaxvu18/16/2012 COVID-19 Vaccine ( season)509/, 07/23/2021ervical Cancer Iaqopznol08/01/2026Pap SmearInfluenza Vaccine Mqaoopvos49/11/2025, 09/14/2024, 10/08/2023, Additional history exists Pneumococcal Vaccine: Pediatrics (0 to 5 Years) and At-Risk Patients (6 to 64 Years)Aged OutNo longer eligible based on patient's age to complete this topic Procedures Procedure NamePriorityDate/TimeAssociated DiagnosisCommentsUS NONVASCULAR RIGHT EXTREMITY 117405312/05/2024 8:04 AM EST ALL THYROXINE (T4) NEDJSpcdcld86/11/2025 2:55 PM EST [facility] PWQPEYEKUkeiakp95/11/2025 2:55 PM EST ALL THYROID STIM XLHWBRQUzbmzxt10/11/2025 2:55 PM EST ALL THYROXINE (T4)Uhykoir6510/04/2025 2:55 PM EST ALL T3 BYVHSsmvtpz79/11/2025 2:55 PM EST [facility] GLUCOSE MCFMLFagpqhj60/11/2025 2:55 PM EST MLR HEMOGLOBIN W2HWnqgxbl06/11/2025 2:55 PM EST PAP EPIAZKwmekom51/01/2023 12:00 AM EDTfrom Last 3 Months or Most Recently Relevant to Health Maintenance Results * US NONVASCULAR RIGHT EXTREMITY 77419 (10/05/2025 8:04 AM EST)Anatomical Region LateralityModalityRadiographic ImagingSpecimen (Source)Anatomical Location / LateralityCollection Method / VolumeCollection TimeReceived Time10/05/2025 8:04 AM EST Narrative 10/05/2025 8:07 AM EST [facility] ?[address] ? [place] [address] ? Ultrasound Report ? Signed ? Patient: TRISTEN,TAYLOR ?MR#: [id number] ?? : 1970 ?Acct:[id number] ?? Age/Sex: 55 / F ?ADM Date: 1111/25 ?? Loc: US ? Attending Dr: Molina Agosto D.O. ? Ordering Physician: Molina Agosto D.O. ?? Date of Service: 10/04/25 ?? Procedure(s): US extremity nonvascular RT ?? Accession Number(s): [id number] ? cc: Molina Agosto D.O.; ARA CRAVEN ? [facility] ? [address] ? [place] [address] ? Patient Name: ?? TAYLOR ??TRISTEN ? MRN: [facility]:[id number] ? date: 1970 ?Sex: F ?? Assigned Patient Location: ?? Current Patient Location: ? Accession/Order Number: [id number] ?? Exam Date: 10/04/2025 ??15:09 ?Report Date: [...] Dictation Location: RADIO-PC-02 ? Electronically authenticated by: [id number] ??Y ?? Date: 10/05/2025 ??08:04 ? Dictated By: ?Camelia Victor M.D. ? Signed By: ?10/05/25 0807 ? DD/ 0804 ? TD/TT: ? Crimper Assembler: Procedure Note Radiology, Radiologist, MD - 10/05/2025 [place] [address] Ultrasound Report Signed Patient: HANNAH RAMON#: [id number] : 1970Acct:[id number] Age/Sex: 55 / FADM Date: 10/04/25 Loc: US Attending Dr: Molina Agosto D.O. Ordering Physician: Molina Agosto D.O. Date of Service: 10/04/25 Procedure(s): US extremity nonvascular RT Accession Number(s): [id number] cc: Molina Agosto D.O.; ARA CRAVEN [place] [id number] Patient Name: TAYLOR RAMON MRN: [facility]:[id number] date: 1970 Sex: F Assigned Patient Location: US Current Patient Location: Accession/Order Number: [id number] Exam Date: 10/04/2025 15:09 Report Date: 10/05/2025 [...] Victor M.D. 10/05/2025 8:04 AM Dictation Location: [place] [address] Electronically authenticated by: [id number] Y Date: 508:04 Dictated By: Camelia Victor M.D. Signed By:10/05/25 0807 DD/ 0804 TD/TT: Crimper Assembler: Authorizing ProviderResult TypeResult StatusCoreking Agosto DOIMG XR PROCEDURESFinal Result * (ABNORMAL) [facility] GLUCOSE BLOOD (10/04/2025 2:55 PM EST)ComponentValueRef Range Test MethodAnalysis TimePerformed AtPathologist QsnbxgavcNYRNWNA975(H)74 - 106 mg/dLTBHSpecimen (Source)Anatomical Location / LateralityCollection Method / VolumeCollection TimeReceived Time10/04/2025 2:55 PM EST10/04/2025 3:04 PM EST Narrative [facility] - 10/04/2025 3:55 PM EST Authorizing ProviderResult TypeResult StatusCoreking Agosto DOCLINISYNCFinal Result Performing OrganizationAddressCity/State/ZIP CodePhone Number [facility] * MLR HEMOGLOBIN A1C (10/04/2025 2:55 PM EST)ComponentValueRef RangeTest Method Analysis TimePerformed AtPathologist SignatureGLYCOHEMOGLOBIN A1C5.44.5 - 6.2 %TBHComment: ADA RECOMMENDED LIMIT 4.0 - 6.0 ADA THERAPEUTIC TARGET < 7.0 ACTION SUGGESTED > 7.0 ESTIMATED AVERAGE ZCPQQTI911qs/dLTBHSpecimen (Source)Anatomical Location / LateralityCollection Method / VolumeCollection TimeReceived Time10/04/2025 2:55 PM EST10/04/2025 3:04 PM EST Narrative [facility] - 10/04/2025 3:47 PM EST Authorizing ProviderResult TypeResult StatusCoreking Agosto DOCLINISYNCFinal Result Performing OrganizationAddressCity/State/ZIP CodePhone Number [facility] * [facility] FERRITIN (10/04/2025 2:55 PM EST)ComponentValueRef RangeTest Method Analysis TimePerformed AtPathologist BkwjgkljsBSBHJYEZ208.08.0 - 252.0 ng/mL TBHSpecimen (Source)Anatomical Location / LateralityCollection Method / Volume Collection TimeReceived Time10/04/2025 2:55 PM EST10/04/2025 3:04 PM EST Narrative [facility] - 10/04/2025 4:11 PM EST Authorizing ProviderResult TypeResult StatusCorey Surendra DOCLINISYNCFinal Result Performing OrganizationAddEncompass Healthty/State/ZIP CodePhone Number [facility] * ALL THYROXINE (T4) FREE (10/04/2025 2:55 PM EST)ComponentValueRef RangeTest MethodAnalysis TimePerformed AtPathologist SignatureFREE T40.910.76 - 1.46 ng/dLTBHSpecimen (Source)Anatomical Location / LateralityCollection Method / VolumeCollection TimeReceived Time10/04/2025 2:55 PM EST10/04/2025 3:04 PM EST Narrative [facility] - 10/04/2025 4:11 PM EST Authorizing ProviderResult TypeResult StatusCorey Surendra DOCLINISYNCFinal Result Performing OrganizationAddEncompass Healthty/State/ZIP CodePhone Number [facility] * ALL THYROXINE (T4) (10/04/2025 2:55 PM EST)ComponentValueRef RangeTest Method Analysis TimePerformed AtPathologist SignatureT4 THYROXINE6.904.80 - 13.90 ug/dLTBHSpecimen (Source)Anatomical Location / LateralityCollection Method / VolumeCollection TimeReceived Time10/04/2025 2:55 PM EST10/04/2025 3:04 PM EST Narrative [facility]NC - 10/04/2025 3:55 PM EST Authorizing ProviderResult TypeResult StatusCorey Surendra DOCLINISYNCFinal Result Performing OrganizationAddEncompass Health [facility]/ZIP CodePhone Number [facility] * ALL THYROID STIM HORMONE (10/04/2025 2:55 PM EST)ComponentValueRef RangeTest MethodAnalysis TimePerformed AtPathologist SignatureTHYROID STIMULATING HORMONE1.6140.358 - 3.740 uIU/mLTBHSpecimen (Source)Anatomical Location / LateralityCollection Method / VolumeCollection TimeReceived Time10/04/2025 2:55 PM EST10/04/2025 3:04 PM EST Narrative CLIN[facility]YNC - 10/04/2025 3:55 PM EST Authorizing ProviderResult TypeResult StatusCorey Surendra DOCLINISYNCFinal Result Performing OrganizationAddressCity/State/ZIP CodePhone Number [facility] * ALL T3 FREE (10/04/2025 2:55 PM EST)ComponentValueRef RangeTest MethodAnalysis TimePerformed AtPathologist SignatureFREE T32.292.18 - 3.98 pg/mLTBHSpecimen (Source)Anatomical Location / LateralityCollection Method / VolumeCollection TimeReceived Time10/04/2025 2:55 PM EST10/04/2025 3:04 PM EST Narrative [facility]NC - 10/04/2025 3:55 PM EST Authorizing ProviderResult TypeResult StatusCorey Surendra DOCLINISYNCFinal Result Performing OrganizationAddressCity/State/ZIP CodePhone Number [facility] * Pap Smear (06/24/2023 12:00 AM EDT)Specimen (Source)Anatomical Location / LateralityCollection Method / VolumeCollection TimeReceived TimeSwabCervical swab / Unknown Narrative Authorizing ProviderResult TypeResult StatusHistorical Provider MDLAB CYTOLOGY ORDERABLESFinal ResultPerforming OrganizationAddressCity/State/ZIP CodePhone Number EXTERNAL LAB from Last 3 Months or Most Recently Relevant to Health Maintenance Insurance * Guarantor: Taylor Ramon DAccount TypeRelation to PatientDate of BirthPhoneBilling AddressPersonal/NoxiumAwpu1970 [id number] [place] [address] Care Teams Team MemberRelationshipSpecialtyStart DateEnd Ara Craven NP [address] [place] [address] Referring PhysicianFamily Zslfpmhw79/8/25
--- OUTSIDE RECORDS SUMMARY | 2025-10-07 10:56 | XMS_ITS | Encounter Summary ---
Author Organization [facility] Address [address] [place] [address] Care Team Providers Care Sock Boarder Name Role Phone Erica Ramírez Primary Care Provider Mitzy Brush RN Unavailable [phone] Source Comments In the event this information is protected by the Federal Confidentiality of Alcohol and Drug AbusePatient Records regulations: The Federal rules restrict any use of the information to criminally investigate or prosecute any alcohol or drug abuse patient.[facility] Encounter Details DateTypeDepartmentCare Team (Latest Contact Info)Vpykzryonlo50/04/2025 Get Medical Advice Rehab Medicine [address] [place] [address] Haim Bustamante MD [address] [place] [address] Appointmentc Social History Tobacco UseTypesPacks/DayYears UsedDateSmoking Tobacco: NeverSmokeless Tobacco: NeverAlcohol UseStandard Drinks/WeekCommentsYes0 (1 standard drink = 0.6 oz pure alcohol)very very rarelyPHQ-2AnswerDate RecordedPHQ-2 cgbbd4535Area Deprivation IndexAnswerDate RecordedNational Score (1-100), lower number is lower dcnf152509/03/2023State Score (1-10), lower number is lower vall376 Data from: https://www.neighborhoodatlas.medicine.[facility]/. Last address used for vxgthvfquee[address] 463CommentsNoSex and Gender Information ValueDate RecordedSex Assigned at BirthNot on fileLegal VmhOgxefz02/13/2012 1:50 PM ESTGender IdentityNot on fileSexual OrientationNot on fileOccupationIndustry Job Start DateJob End DateunemployedNot on fileNot on fileNot on filedocumented as of this encounter Functional Status * Are you deaf or do you have serious difficulty hearing?AnswerDate of ShvxylbjtlNwztftSl47/26/2015 1:19 PM Whitney Pitts (Rn), RN * Are you blind or do you have serious difficulty seeing, even when wearing glasses?AnswerDate of TjkftxiwetGdxkjsFj49/26/2015 1:19 PM Whitney Pitts (Rn), RN * Do you have serious difficulty walking or climbing stairs?AnswerDate of UcxkcelfpvFqjzrnVtf52/26/2015 1:19 PM Whitney Pitts (Rn), RN * Do you have difficulty dressing or bathing?AnswerDate of AssessmentAuthorYes 05/19/2015 1:19 PM Whitney Pitts (Rn), RN * Because of a physical, mental, or emotional condition, do you have difficulty doing errands alone such as visiting a doctor's office or shopping?AnswerDate of ZeozktinqjWnzpaxYmi50/26/2015 1:19 PM Whitney Pitts (Rn), RN documented as of this encounter Mental Status * Because of a physical, mental, or emotional condition, do you have serious difficulty concentrating, remembering, or making decisions?AnswerEntry Date CpxjkpOg80/26/2015 1:19 PM Whitney Pitts (Rn), RN documented in this encounter Plan of Treatment DateTypeDepartmentCare Team (Latest Contact Info)Ozkebamdzdv29/ 1:00 PM ESTOffice Visit Rehab Medicine [address] [place] [address] Haim Bustamante MD [address] [place], [place] [id number] Return in about 3 months (around 11/09/2025) for Repeat Botox injections in 3 months with Dianna in [place].documented as of this encounter Visit Diagnoses Not on filedocumented in this encounter Care Teams Team MemberRelationshipSpecialtyStart DateEnd Date Erica Ramírez PCP - GeneralFamily Ghodwkws38/13/12 [place] [address] [place] [address] Specialty Care CoordinatorHematology/Oncology07/25/23documented as of this encounter
--- OUTSIDE RECORDS SUMMARY | 2025-10-07 10:57 | XMS_ITS | Patient Health Record ---
Author Organization [facility] es Address [address] [facility] [place] [address] Care Team Providers Care Industrial Painter Name Role Phone Dr. Sergio Reyes Primary [...] Coverage Start Date Coverage End Date [facility] PPO MEDICARE ADVANTAGE [address] [address] [place] [address] [id number] MONIKA RAMON Self - patient is the insured 2
--- NOTE | 2025-10-07 11:25 | MM_ITS ---
Patient Name: MONIKA RAMON MR#: [id number] : 1970 Exam Date: 10/07/2025 Ordering Doctor: DR MOLINA SALINAS . RADIOLOGY REPORT PROCEDURE: MM TOMOSYNTHESIS SCREENING BI COMPARISON: MM TOMOSYNTHESIS SCREENING BI, 08/22/2023. INDICATIONS: screening mammogram for malignant neoplasm, rt.axilla swelli Calculator Name NCI Breast Cancer Risk Assessment Tool 5 Year Breast Cancer Risk 1.00% Lifetime Breast Cancer Risk 7.70% Personal Breast Cancer No Personal Ovarian Cancer No Treatments None Family Cancers Grandmother-maternal with uterine cancer at age 28. LOCATION: [facility] BREAST COMPOSITION: There are scattered areas of fibroglandular density. FINDINGS: RIGHT BREAST: No significant suspicious finding. There is a similar focal asymmetry of the medial aspect of the right breast. LEFT BREAST: No significant suspicious finding. Benign-appearing calcifications are present. DIAGNOSTIC CATEGORY 2--BENIGN FINDING. NO CHANGE FROM COMPARISON. RECOMMENDATIONS: ROUTINE MAMMOGRAM AND CLINICAL EVALUATION IN 12 MONTHS. Dictated by: Dionte Back MD on 10/07/2025 at 14:43 Approved by: Dionte Back MD on 10/07/2025 at 15:05
== END 2025-10-07 10:53 | disposition home or self-care (01) ==
LOC: MAMMO 10:52
PROVIDERS: PCP Nurse Practitioner; Visit Provider Obstetrics & Gynecology
DX: Z12.31 Encounter for screening mammogram for malignant neoplasm of breast (principal); Z80.8 Family history of malignant neoplasm of other organs or systems
CPT/HCPCS: 77063; 77067